=== PATIENT | male | born 1975 | race Caucasian/White ===

== ENCOUNTER 2016-09-09 12:40 | Inpatient (IN) | payer OTHER ==
[2016-09-09] MEDS ORDERED: SODIUM CHLORIDE 0.9% 1,000 ML IV ONE (12:44)
[2016-09-09] MEDS ORDERED: IPRATROPIUM-ALBUTEROL 3 ML NEB INHALATION STA (12:45)
--- NOTE | 2016-09-09 12:50 | ED ---
Altered Mental Status HPI - General Stated Complaint: unresponsive Time Seen by Provider: 09/09/16 12:40 Source: EMS, RN notes reviewed, old records reviewed Mode of arrival: EMS - History of Present Illness Initial Comments: This is a 40-year-old male who apparently did not go to work today and was found after several hours by his boss sitting in a recliner unresponsive. EMS was called the patient had vomited. The patient was given Narcan with some improvement he was found have pinpoint pupils initially noted. He was very lethargic and unable or not able to cooperate with questioning. No paraphernalia such as heroin needles or narcotics were found at the scene. Looking through old charts the patient does have a history of being here for alcohol abuse. No reports of any fevers chills sweats the patient is a poor historian however. MD Complaint: altered mental status, decreased responsiveness - Related Data Home Medications Medication Instructions Recorded Confirmed Escitalopram Oxalate [Lexapro] 10 mg PO DAILY 09/09/16 09/09/16 FLUoxetine HCL [PROzac] 20 mg PO DAILY 09/09/16 09/09/16 Allergies Allergy/AdvReac Type Severity Reaction Status Date / Time seasonal Allergy Rash/Hives Uncoded 09/09/16 15:27 Review of Systems ROS Statement: Those systems with pertinent positive or pertinent negative responses have been documented in the HPI. ROS Other: All systems not noted in ROS Statement are negative. Limitations: ROS unobtainable due to patients medical condition Past Medical History Past Medical History: No Reported History Additional Past Medical History / Comment(s): alcoholic History of Any Multi-Drug Resistant Organisms: None Reported Additional Past Surgical History / Comment(s): ent, RHINOPLASTY Past Psychological History: Depression Smoking Status: Current every day smoker Past Alcohol Use History: Daily Past Drug Use History: None Reported General Exam - General Exam Comments Initial Comments: Is a well-developed well-nourished lethargic male General appearance: lethargic Eye exam: Present: normal appearance, PERRL, EOMI. Absent: scleral icterus, conjunctival injection, periorbital swelling ENT exam: Present: other (Emesis residue is present) Neck exam: Present: normal inspection. Absent: tenderness, meningismus, lymphadenopathy Respiratory exam: Present: decreased breath sounds, other (Lower lobe rhonchi) Cardiovascular Exam: Present: regular rate, normal rhythm, normal heart sounds. Absent: systolic murmur, diastolic murmur, rubs, gallop, clicks GI/Abdominal exam: Present: soft, normal bowel sounds. Absent: distended, tenderness, guarding, rebound, rigid Extremities exam: Present: normal inspection, full ROM, normal capillary refill. Absent: tenderness, pedal edema, joint swelling, calf tenderness Back exam: Present: normal inspection Neurological exam: Present: altered, CN II-XII intact. Absent: motor sensory deficit Psychiatric exam: Present: agitated Skin exam: Present: warm, dry, intact, normal color. Absent: rash Course Vital Signs 09/09/16 09/09/16 09/09/16 12:45 13:00 13:10 Temperature 97.8 F Pulse Rate 110 H 110 H 114 H Respiratory 18 Rate Blood Pressure O2 Sat by Pulse 100 Oximetry 09/09/16 09/09/16 09/09/16 13:12 13:30 14:24 Temperature 97.2 F L Pulse Rate 80 118 H Respiratory 18 18 Rate Blood Pressure 129/69 106/58 122/68 O2 Sat by Pulse 97 96 Oximetry 09/09/16 09/09/16 09/09/16 15:19 15:58 16:03 Temperature Pulse Rate 114 H 117 H 113 H Respiratory 18 16 16 Rate Blood Pressure 146/87 118/61 116/66 O2 Sat by Pulse 98 100 100 Oximetry - Reevaluation(s) Reevaluation #1: 09/09/16 14:10 Agent is somewhat more awake and alert and he was earlier sought answering questions well. Show sinus tachycardia rate 113 some prominent T waves noted. The patient's potassium was noted to be markedly elevated nonhemolyzed specimen the patient be treated for this a repeat blood draw also has been ordered Reevaluation #2: 09/09/16 15:40 The patient remains agitated chewable gas of pH is 7.15 pCO2 of 54. Patient will require intubation as he is not maintaining his airway. Reevaluation #3: 09/09/16 16:21 I did review the x-ray tracheal tube was approximately 41 mm above the leila he will be position by 1.5 cm Procedures - Intubation Time Out Performed: Yes Sedative: Versed Paralytic: Rocuronium Laryngoscope: Fregoso Size: 3 ET Tube Size: 8 ET Tube Uncuffed: No (Cuffed tube) Tube Secured Depth (cm): 23 Tube Secured Location: lips Tube Placement Confirmation: visualized tube passing through cords, equal breath sounds bilaterally, confirmation by capnometry Patient Tolerated Procedure: well Intubation Complications: none Medical Decision Making - Lab Data Result diagrams: 09/09/16 13:00 09/09/16 13:50 Lab Results 09/09/16 09/09/16 09/09/16 Range/Units 13:00 13:00 13:00 WBC 17.3 H (3.8-10.6) k/uL RBC 5.11 (4.30-5.90) m/uL Hgb 15.9 (13.0-17.5) gm/dL Hct 51.7 (39.0-53.0) % MCV 101.2 H (80.0-100.0) fL MCH 31.0 (25.0-35.0) pg MCHC 30.7 L (31.0-37.0) g/dL RDW 13.0 (11.5-15.5) % Plt Count 254 (150-450) k/uL Neutrophils % 85 % Lymphocytes % 6 % Monocytes % 7 % Eosinophils % 0 % Basophils % 0 % Neutrophils # 14.6 H (1.3-7.7) k/uL Lymphocytes # 1.1 (1.0-4.8) k/uL Monocytes # 1.3 H (0-1.0) k/uL Eosinophils # 0.0 (0-0.7) k/uL Basophils # 0.1 (0-0.2) k/uL Macrocytosis Slight PT (9.0-12.0) sec INR (<1.1) APTT (22.0-30.0) sec Sample Site ABG pH (7.35-7.45) ABG pCO2 (35-45) mmHg ABG pO2 (83-108) mmHg ABG HCO3 (21-25) mmol/L ABG Total CO2 (19-24) mmol/L ABG O2 Saturation (94-97) % ABG Base Excess mmol/L FiO2 % Sodium (137-145) mmol/L Potassium (3.5-5.1) mmol/L Chloride (98-107) mmol/L Carbon Dioxide (22-30) mmol/L Anion Gap mmol/L BUN (9-20) mg/dL Creatinine (0.66-1.25) mg/dL Est GFR (MDRD) Af Amer (>60 ml/min/1.73 sqM) Est GFR (MDRD) Non-Af (>60 ml/min/1.73 sqM) Glucose (74-99) mg/dL POC Glucose (mg/dL) (75-99) mg/dL POC Glu Property Management Intern ID Osmolality (280-301) mosm/kg Plasma Lactic Acid Valentino 7.1 H* (0.7-2.0) mmol/L Calcium (8.4-10.2) mg/dL Magnesium (1.6-2.3) mg/dL Total Bilirubin (0.2-1.3) mg/dL AST (17-59) U/L ALT (21-72) U/L Alkaline Phosphatase (38-126) U/L Ammonia 22 (<30) umol/L Total Creatine Kinase 95864 H (55-170) U/L CK-MB (CK-2) 95.2 H* (0.0-2.4) ng/mL CK-MB (CK-2) Rel Index Troponin I 0.960 H* (0.000-0.034) ng/mL Total Protein (6.3-8.2) g/dL Albumin (3.5-5.0) g/dL Amylase (30-110) U/L Lipase (23-300) U/L Urine Color Urine Appearance (Clear) Urine pH (5.0-8.0) Ur Specific [place] (1.001-1.035) Urine Protein (Negative) Urine Glucose (UA) (Negative) Urine Ketones (Negative) Urine Blood (Negative) Urine Nitrate (Negative) Urine Bilirubin (Negative) Urine Urobilinogen (<2.0) mg/dL Ur Leukocyte Esterase (Negative) Urine Opiates Screen (NotDetected) Ur Oxycodone Screen (NotDetected) Urine Methadone Screen (NotDetected) Ur Propoxyphene Screen (NotDetected) Ur Barbiturates Screen (NotDetected) U Tricyclic Antidepress (NotDetected) Ur Phencyclidine Scrn (NotDetected) Ur Amphetamines Screen (NotDetected) U Methamphetamines Scrn (NotDetected) U Benzodiazepines Scrn (NotDetected) Urine Cocaine Screen (NotDetected) U Marijuana (THC) Screen (NotDetected) Serum Alcohol mg/dL 09/09/16 09/09/16 09/09/16 Range/Units 13:00 13:00 13:08 WBC (3.8-10.6) k/uL RBC (4.30-5.90) m/uL Hgb (13.0-17.5) gm/dL Hct (39.0-53.0) % MCV (80.0-100.0) fL MCH (25.0-35.0) pg MCHC (31.0-37.0) g/dL RDW (11.5-15.5) % Plt Count (150-450) k/uL Neutrophils % % Lymphocytes % % Monocytes % % Eosinophils % % Basophils % % Neutrophils # (1.3-7.7) k/uL Lymphocytes # (1.0-4.8) k/uL Monocytes # (0-1.0) k/uL Eosinophils # (0-0.7) k/uL Basophils # (0-0.2) k/uL Macrocytosis PT 10.2 (9.0-12.0) sec INR 1.0 (<1.1) APTT 21.0 L (22.0-30.0) sec Sample Site ABG pH (7.35-7.45) ABG pCO2 (35-45) mmHg ABG pO2 (83-108) mmHg ABG HCO3 (21-25) mmol/L ABG Total CO2 (19-24) mmol/L ABG O2 Saturation (94-97) % ABG Base Excess mmol/L FiO2 % Sodium 148 H (137-145) mmol/L Potassium 8.2 H* (3.5-5.1) mmol/L Chloride 105 (98-107) mmol/L Carbon Dioxide 18 L (22-30) mmol/L Anion Gap 25 mmol/L BUN 17 (9-20) mg/dL Creatinine 3.52 H (0.66-1.25) mg/dL Est GFR (MDRD) Af Amer 23 (>60 ml/min/1.73 sqM) Est GFR (MDRD) Non-Af 19 (>60 ml/min/1.73 sqM) Glucose 129 H (74-99) mg/dL POC Glucose (mg/dL) 116 H (75-99) mg/dL POC Glu Property Management Intern Jessie Zaidi Osmolality 343 H* (280-301) mosm/kg Plasma Lactic Acid Valentino (0.7-2.0) mmol/L Calcium 9.5 (8.4-10.2) mg/dL Magnesium 2.4 H (1.6-2.3) mg/dL Total Bilirubin 0.5 (0.2-1.3) mg/dL AST 4083 H (17-59) U/L ALT 2961 H (21-72) U/L Alkaline Phosphatase 85 (38-126) U/L Ammonia (<30) umol/L Total Creatine Kinase (55-170) U/L CK-MB (CK-2) (0.0-2.4) ng/mL CK-MB (CK-2) Rel Index Troponin I (0.000-0.034) ng/mL Total Protein 8.5 H (6.3-8.2) g/dL Albumin 5.4 H (3.5-5.0) g/dL Amylase 271 H (30-110) U/L Lipase 844 H (23-300) U/L Urine Color Urine Appearance (Clear) Urine pH (5.0-8.0) Ur Specific [place] (1.001-1.035) Urine Protein (Negative) Urine Glucose (UA) (Negative) Urine Ketones (Negative) Urine Blood (Negative) Urine Nitrate (Negative) Urine Bilirubin (Negative) Urine Urobilinogen (<2.0) mg/dL Ur Leukocyte Esterase (Negative) Urine Opiates Screen (NotDetected) Ur Oxycodone Screen (NotDetected) Urine Methadone Screen (NotDetected) Ur Propoxyphene Screen (NotDetected) Ur Barbiturates Screen (NotDetected) U Tricyclic Antidepress (NotDetected) Ur Phencyclidine Scrn (NotDetected) Ur Amphetamines Screen (NotDetected) U Methamphetamines Scrn (NotDetected) U Benzodiazepines Scrn (NotDetected) Urine Cocaine Screen (NotDetected) U Marijuana (THC) Screen (NotDetected) Serum Alcohol 83 mg/dL 09/09/16 09/09/16 09/09/16 Range/Units 13:50 14:41 15:11 WBC (3.8-10.6) k/uL RBC (4.30-5.90) m/uL Hgb (13.0-17.5) gm/dL Hct (39.0-53.0) % MCV (80.0-100.0) fL MCH (25.0-35.0) pg MCHC (31.0-37.0) g/dL RDW (11.5-15.5) % Plt Count (150-450) k/uL Neutrophils % % Lymphocytes % % Monocytes % % Eosinophils % % Basophils % % Neutrophils # (1.3-7.7) k/uL Lymphocytes # (1.0-4.8) k/uL Monocytes # (0-1.0) k/uL Eosinophils # (0-0.7) k/uL Basophils # (0-0.2) k/uL Macrocytosis PT (9.0-12.0) sec INR (<1.1) APTT (22.0-30.0) sec Sample Site RT RADIAL ABG pH 7.15 L* (7.35-7.45) ABG pCO2 54 H (35-45) mmHg ABG pO2 107 (83-108) mmHg ABG HCO3 18 L (21-25) mmol/L ABG Total CO2 20 (19-24) mmol/L ABG O2 Saturation 96.0 (94-97) % ABG Base Excess -9.2 mmol/L FiO2 50 % Sodium (137-145) mmol/L Potassium 8.7 H* (3.5-5.1) mmol/L Chloride (98-107) mmol/L Carbon Dioxide (22-30) mmol/L Anion Gap mmol/L BUN (9-20) mg/dL Creatinine (0.66-1.25) mg/dL Est GFR (MDRD) Af Amer (>60 ml/min/1.73 sqM) Est GFR (MDRD) Non-Af (>60 ml/min/1.73 sqM) Glucose (74-99) mg/dL POC Glucose (mg/dL) (75-99) mg/dL POC Glu Property Management Intern ID Osmolality (280-301) mosm/kg Plasma Lactic Acid Valentino (0.7-2.0) mmol/L Calcium (8.4-10.2) mg/dL Magnesium (1.6-2.3) mg/dL Total Bilirubin (0.2-1.3) mg/dL AST (17-59) U/L ALT (21-72) U/L Alkaline Phosphatase (38-126) U/L Ammonia (<30) umol/L Total Creatine Kinase (55-170) U/L CK-MB (CK-2) (0.0-2.4) ng/mL CK-MB (CK-2) Rel Index Troponin I (0.000-0.034) ng/mL Total Protein (6.3-8.2) g/dL Albumin (3.5-5.0) g/dL Amylase (30-110) U/L Lipase (23-300) U/L Urine Color Light Yellow Urine Appearance Clear (Clear) Urine pH 5.0 (5.0-8.0) Ur Specific [place] 1.003 (1.001-1.035) Urine Protein Negative (Negative) Urine Glucose (UA) Negative (Negative) Urine Ketones Negative (Negative) Urine Blood Negative (Negative) Urine Nitrate Negative (Negative) Urine Bilirubin Negative (Negative) Urine Urobilinogen <2.0 (<2.0) mg/dL Ur Leukocyte Esterase Negative (Negative) Urine Opiates Screen Detected H (NotDetected) Ur Oxycodone Screen Not Detected (NotDetected) Urine Methadone Screen Not Detected (NotDetected) Ur Propoxyphene Screen Not Detected (NotDetected) Ur Barbiturates Screen Not Detected (NotDetected) U Tricyclic Antidepress Not Detected (NotDetected) Ur Phencyclidine Scrn Not Detected (NotDetected) Ur Amphetamines Screen Not Detected (NotDetected) U Methamphetamines Scrn Not Detected (NotDetected) U Benzodiazepines Scrn Not Detected (NotDetected) Urine Cocaine Screen Not Detected (NotDetected) U Marijuana (THC) Screen Not Detected (NotDetected) Serum Alcohol mg/dL - EKG Data -: EKG Interpreted by Tn EKG shows normal: sinus rhythm Rate: tachycardia (Sinus tachycardia rate of 113. Interval 156 QRS duration 94 QT/QTC of 306/419 evidence of incomplete right bundle-branch block nonspecific ST configuration some prominent T waves noted) - Radiology Data Radiology results: report reviewed (CAT scan of brain was negative for acute findings x-ray did show evidence of right lower lobe infiltrate), image reviewed Critical Care Time Critical Care Time: Yes Critical Care Time: 59 minutes of critical care time which includes initial monitoring of the EMS run including discussed with paramedics upon arrival. Evaluation patient with history physical evaluation the laboratory and charting. Initial orders of labs x-rays evaluation same reevaluation patient multiple occasions. Evaluation of the x-rays. This is not include the intubation time. I did discuss the case with Dr. Sanabria and with Disposition Clinical Impression: Acute respiratory failure, Encephalopathy acute, Acute renal failure (ARF), Rhabdomyolysis, Acute hyperkalemia, Alcoholic hepatitis, Alcoholic intoxication , Sepsis, Aspiration pneumonitis Disposition: ADMITTED IP TO THIS HOSP Condition: Critical
[2016-09-09] MEDS ORDERED: SODIUM CHLORIDE 0.9% 1,000 ML with MVI, ADULT NO.4 WITH VIT K 10 ML, THIAMINE 100 MG, F... IV ONE ×4 (12:51)
[2016-09-09 13:10] LABS: Glucose,Whole Blood 116 mg/dL (75-99)
[2016-09-09 13:16] LABS: Basophils # (A) 0.1 k/uL (0-0.2); Basophils % (A) 0 %; CH 32.4; CHCM 32.3; Eosinophils % (A) 0 %; HCT 51.7 % (39.0-53.0); HDW 2.58; HGB 15.9 gm/dL (13.0-17.5); Luc # (Auto) 0.18; Luc % (Auto) 1; Lymphocytes # (A) 1.1 k/uL (1.0-4.8); Lymphocytes % (A) 6 %; MCHC 30.7 g/dL (31.0-37.0); MCV 101.2 fL (80.0-100.0); Macrocytosis Slight; Mean Platelet Volume 7.7; Monocytes # (A) 1.3 k/uL (0-1.0); Monocytes % (A) 7 %; Neutrophils # (A) 14.6 k/uL (1.3-7.7); Neutrophils % (A) 85 %; RBC 5.11 m/uL (4.30-5.90); WBC 17.3 k/uL (3.8-10.6); WBC (Perox) 17.26
[2016-09-09] MEDS ORDERED: LORazepam 2 MG/ML SYRINGE IV STA (13:18)
[2016-09-09 13:30] LABS: Calcium 9.5 mg/dL (8.4-10.2); Magnesium 2.4 mg/dL (1.6-2.3); Total Bilirubin 0.5 mg/dL (0.2-1.3); Total Protein 8.5 g/dL (6.3-8.2)
[2016-09-09 13:32] LABS: Prothrombin Time 10.2 sec (9.0-12.0)
[2016-09-09 13:37] LABS: Potassium 8.2 mmol/L (3.5-5.1)
[2016-09-09] MEDS ORDERED: SODIUM CHLORIDE 0.9% 2,000 ML IV ONE ×2 (13:37→14:22)
--- NOTE | 2016-09-09 13:56 | XR ---
EXAMINATION TYPE: XR chest 1V portable DATE OF EXAM: 09/09/2016 1:51 PM COMPARISON: Chest x-ray January 20, 2014 HISTORY: Altered mental status and weakness. TECHNIQUE: Single frontal view of the chest is obtained. FINDINGS: There is new patchy right basilar atelectasis and/or infiltrate. Left lung is clear. No pl eural effusion or pneumothorax seen bilaterally The cardiac silhouette size is within normal limits. The osseous structures are intact. IMPRESSION: New patchy right basilar atelectasis and/or infiltrate.
[2016-09-09] MEDS ORDERED: INSULIN REGULAR 100 UNIT/ML VIAL IV ONE (13:58)
[2016-09-09] MEDS ORDERED: DEXTROSE 50%-WATER 50 ML SYRINGE IVP STA (13:58)
[2016-09-09] MEDS ORDERED: SODIUM BICARB 8.4% 50 ML SYR (1 MEQ/ML) IV ONE ×2 (13:59→21:10)
--- NOTE | 2016-09-09 14:00 | CT ---
EXAMINATION TYPE: CT brain wo con DATE OF EXAM: 09/09/2016 1:51 PM COMPARISON: CT brain February 26, 2016 HISTORY: Patient unable to give history. Unresponsive. CT DLP: 835.8 mGycm Automated exposure control for dose reduction was used. FINDINGS: There is no acute intracranial hemorrhage, mass effect, or midline shift identified. The ventricles and sulci are within normal limits in size. Russell-white matter differentiation is maintained. The montse bes are intact and the visualized sinuses are clear. IMPRESSION: No acute intracranial hemorrhage or midline shift is seen. No significant change from prior.
[2016-09-09 14:04] LABS: Creatine Kinase MB 95.2 ng/mL (0.0-2.4); Troponin I 0.96 ng/mL (0.000-0.034)
[2016-09-09] MEDS ORDERED: PIPERACILLIN-TAZOBACTAM 3.375 GM in DEXTROSE/WATER 1 50ML.BAG IVPB STA (14:13)
[2016-09-09 14:51] LABS: ABG HCO3 18 mmol/L (21-25); ABG PCO2 54 mmHg (35-45); ABG PH 7.15 (7.35-7.45); ABG PO2 107 mmHg (83-108)
[2016-09-09 14:52] LABS: ABG Base Excess -9.2 mmol/L; ABG TCO2 20 mmol/L (19-24)
[2016-09-09] MEDS ORDERED: MIDAZOLAM (PF) 1 MG/ML 5 ML VIAL IV STA (14:58)
[2016-09-09] MEDS ORDERED: ROCURONIUM BROMIDE 10 MG/ML 10 ML VIAL IV STA (14:59)
[2016-09-09] MEDS ORDERED: PROPOFOL 500 MG in EMPTY BAG 1 BAG IV ONE (15:18)
[2016-09-09 15:26] LABS: Appearance,Urine Clear (Clear); Bilirubin,Urine Negative (Negative); Glucose,Urine (UA) Negative (Negative); Ketones,Urine Negative (Negative); Leukocyte Esterase,Urine Negative (Negative); Nitrite,Urine Negative (Negative); Protein,Urine Negative (Negative); Specific Gravity,Urine 1.003 (1.001-1.035); UA Billing (MACRO vs. MICRO) CHEM; Urobilinogen,Urine <2.0 mg/dL (<2.0)
--- NOTE | 2016-09-09 15:56 | XR ---
EXAMINATION TYPE: XR chest 1V portable DATE OF EXAM: 09/09/2016 3:49 PM COMPARISON: Chest x-ray from earlier today HISTORY: Found unresponsive had to be intubated TECHNIQUE: Single AP portable frontal supine view of the chest is obtained. FINDINGS: There is new endotracheal tube with tip at clavicular margin, approximately 4 to 5 cm above the leila. There is new orogastric tube projecting below diaphragm. There is patchy right basilar atelectasis and/or infiltrate redemonstrated. There is no new focal air space opacity, pleural effusion, or pneumothorax seen. The cardiac silhouette size is within normal limits. The osseous structures are intact. IMPRESSION: 1. New ET and OGT are satisfactory in position. 2. Persistent patchy right basilar atelectasis and/or infiltrate. No new infiltrate is seen.
[2016-09-09] MEDS: PROPOFOL 500 MG in EMPTY BAG 1 BAG IV SCH ×3 (16:05→21:03)
[2016-09-09] MEDS ORDERED: NALOXONE 0.4 MG/ML 1 ML VIAL IV PRN (16:28)
[2016-09-09] MEDS ORDERED: SODIUM POLYSTYRENE SULFONATE 15 GM/60 ML BOTTLE PO STA (16:31)
[2016-09-09] MEDS ORDERED: CALCIUM CHLORIDE 100 MG/ML 10 ML SYRINGE IVP STA (16:32)
[2016-09-09] MEDS ORDERED: ALBUTEROL NEBULIZED 2.5 MG/3 ML INHALATION SCH (17:00)
[2016-09-09] MEDS: LORazepam 2 MG/ML SYRINGE IV PRN ×2 (17:50→18:19)
[2016-09-09] MEDS: SODIUM CHLORIDE 0.9% 1,000 ML IV SCH (18:00)
[2016-09-09] MEDS ORDERED: levETIRAcetam IV 1,000 MG in SALINE 1 100ML.BAG IVPB STA (18:23)
[2016-09-09] MEDS ORDERED: ACETAMINOPHEN IV (For NPO) 1,000 MG in EMPTY BAG 1 BAG IVPB PRN (18:50)
--- NOTE | 2016-09-09 19:00 | P.CNNES ---
History of Present Illness Consult date: 09/09/16 Reason for Consult: Patient unresponsive on the ventilator with frequent muscle twitching. History of Present Illness: This patient is a 40-year-old right-handed white male who apparently was found unresponsive at his home. The patient had not appeared to work at his usual scheduled time and his supervisor pig machine came to his home. Apparently he found the patient unresponsive sitting in a recliner chair. EMS was called to the scene and when they arrived they found him to have very shallow respirations. CPR was started and the patient was intubated and brought to the emergency room. Patient was seen in the emergency room by Dr. Chacon. Apparently the patient had vomited in route to the ER. In the ER he was found to be very lethargic and hard to arouse. He had pinpoint pupils and was very lethargic. Review of his old charts revealed he had a history of alcohol abuse in the past. Laboratory testing was done and his alcohol level was elevated. His serum alcohol level was 83. His urine drug screen came back positive for opiates. Patient underwent blood gas evaluation which revealed the patient to have severe respiratory distress. The patient was intubated in the emergency room and transferred to the intensive care unit. He apparently was lethargic and arousable in the ER but since coming into the ICU initially he was not very responsive. He also had evidence of frequent myoclonic jerks involving his entire body. He was started on levetiracetam for this condition. The patient now is more awake. He is following some simple commands. He did go for a computed tomography scan of the brain which failed to reveal any evidence of acute stroke or hemorrhage. There was no evidence of vasogenic edema. Chest x- ray did reveal evidence of possible aspiration pneumonia. He was placed on Zosyn for IV antibiotic coverage. He is now transferred to the intensive care unit where he is being evaluated for a full neurological assessment. As noted he is following some simple commands. He is moving all 4 extremities. Apparently he did have more frequent myoclonic jerks earlier since coming into the ICU but these are much reduced at this time. We will place the patient on Leva Leila Kaminski for a short period of time and monitor his response. He continues on a Diprivan drip at this time. He is slightly septic with elevated temperature in the ICU. Blood cultures are pending. This patient likely has evidence of a severe anoxic encephalopathy due to respiratory failure. Workup is in progress. We will continue close neurological follow-up with this patient in the intensive care unit. Review of Systems ROS unobtainable: due to endotracheal tube Constitutional: Denies chills, Denies fever Eyes: denies blurred vision, denies pain Ears, nose, mouth and throat: Denies headache, Denies sore throat Cardiovascular: Denies chest pain, Denies shortness of breath Respiratory: Denies cough Gastrointestinal: Denies abdominal pain, Denies diarrhea, Denies nausea, Denies vomiting Musculoskeletal: Denies myalgias Integumentary: Denies pruritus, Denies rash Neurological: Reports confusion, Reports tremors, Denies numbness, Denies weakness Psychiatric: Denies anxiety, Denies depression Endocrine: Denies fatigue, Denies weight change Past Medical History Past Medical History: No Reported History Additional Past Medical History / Comment(s): alcoholic History of Any Multi-Drug Resistant Organisms: None Reported Additional Past Surgical History / Comment(s): ent, RHINOPLASTY Past Psychological History: Depression Smoking Status: Current every day smoker Past Alcohol Use History: Daily Past Drug Use History: None Reported Medications and Allergies Home Medications Medication Instructions Recorded Confirmed Type Escitalopram Oxalate [Lexapro] 10 mg PO DAILY 09/09/16 09/09/16 History FLUoxetine HCL [PROzac] 20 mg PO DAILY 09/09/16 09/09/16 History Allergies Allergy/AdvReac Type Severity Reaction Status Date / Time seasonal Allergy Rash/Hives Uncoded 09/09/16 15:27 Physical Examination - Vital Signs Vital Signs: Vital Signs Temp Pulse Resp BP Pulse Ox 09/09/16 17:45 100.9 F H 106 H 13 175/99 100 09/09/16 16:41 98.5 F 110 H 16 121/62 99 Intake and Output 09/09/16 09/09/16 09/09/16 06:59 14:59 22:59 Intake Total 362.5 Output Total 5 Balance 357.5 Intake: IV 362.5 Piperacillin-Tazobactam 3 12.5 .375 gm In Dextrose/Water 1 50ml.bag @ 12.5 mls/hr IVPB ONCE STA Rx#: [id number] Sodium Chloride 0.9% 1, 100 000 ml @ 100 mls/hr IV . Q10H7M ONE with Mvi, Adult No.4 with Vit K 10 ml with Thiamine 100 mg with Folic Acid 1 mg Rx#: [id number] Sodium Chloride 0.9% 1, 250 000 ml @ 250 mls/hr IV . Q4H [facility] Rx#:[id number] Output: Urine 5 - Constitutional General appearance: average body habitus - EENT EENT: mucous membranes moist - Respiratory Respiratory: lungs clear - Cardiovascular Cardiovascular: regular rate, normal S1, normal S2 Extremities: no peripheral edema bilaterally - Gastrointestinal Gastrointestinal: normoactive bowel sounds - Integumentary Integumentary: normal - Neurologic Cranial nerve examination: PERRL, EOMI, VFF, V1/V2/V3 grossly intact, face symmetric, tongue midline, intact gag reflex, intact corneal reflex Speech examination: intact Sensorimotor examination: intact Detailed motor examination: grossly full strength in all extremities Reflexes: 1+: ankle, bicep, knee, tricep - Musculoskeletal Musculoskeletal: no pain - Psychiatric Psychiatric: agitated Results - Laboratory Findings CBC and BMP: 09/09/16 13:00 09/09/16 13:50 Assessment and Plan (1) Anoxic encephalopathy Status: Acute Code(s): G93.1 - ANOXIC BRAIN DAMAGE, NOT ELSEWHERE CLASSIFIED (2) Acute hyperkalemia Status: Acute Code(s): E87.5 - HYPERKALEMIA (3) Acute respiratory failure Status: Acute Code(s): J96.00 - ACUTE RESPIRATORY FAILURE, UNSP W HYPOXIA OR HYPERCAPNIA (4) Alcoholic hepatitis Status: Acute Code(s): K70.10 - ALCOHOLIC HEPATITIS WITHOUT ASCITES (5) Sepsis Status: Acute Code(s): A41.9 - SEPSIS, UNSPECIFIED ORGANISM Plan: This patient is a 40-year-old male who was found unresponsive at his home by his supervisor pig machine. The patient was late for work for over 3 hours and his supervisor pig machine and went to check on him. He found him sitting in a chair unresponsive. It is unclear how long he may have been in this position but it is estimated to be over 2 hours. Patient was having shallow breathing. When EMS arrived they had to intubate him. He was transferred to the emergency room where he was further evaluated. He underwent a computed tomography scan of the brain results which are noted above. CAT scan was negative for any acute changes. He was intubated due to respiratory failure and aspiration pneumonia and transferred to the intensive care unit. Initially in the ICU he had some muscle twitching. This is felt to be secondary to severe anoxic encephalopathy. He has been started on levetiracetam and we will monitor his response closely. This patient has a severe anoxic encephalopathy secondary to respiratory failure. Etiology of his respiratory failure is undetermined at this time. He does have evidence of aspiration pneumonia as well on chest x- ray. We reviewed the computed tomography scan of the brain which is negative for any acute changes. We will obtain routine EEG for further assessment. He shouldn't is be maintained on levetiracetam at this time. We will check a level and adjust his dose as needed. This patient's overall prognosis at this time remains very guarded. We will continue close neurological follow-up of this patient in the intensive care unit. Time with Patient: Greater than 30
[2016-09-09 19:02] LABS: Anion Gap 12 mmol/L; Blood Urea Nitrogen 21 mg/dL (9-20); Calcium 7.5 mg/dL (8.4-10.2); Carbon Dioxide 19 mmol/L (22-30); Chloride 115 mmol/L (98-107); Glucose 142 mg/dL (74-99); Non-African American GFR(MDRD) 21 (>60 ml/min/1.73 sqM); Sodium 146 mmol/L (137-145)
[2016-09-09 19:12] LABS: Potassium 6.6 mmol/L (3.5-5.1)
[2016-09-09 19:17] LABS: ABG PH 7.18 (7.35-7.45)
[2016-09-09 19:18] LABS: ABG HCO3 18 mmol/L (21-25); ABG PCO2 51 mmHg (35-45); ABG PO2 363 mmHg (83-108); ABG TCO2 20 mmol/L (19-24)
[2016-09-09 19:33] LABS: Hepatitis B Surface Ag Index 0.06
[2016-09-09 19:39] LABS: Hepatitis B Core IgM Index 0.04
[2016-09-09] MEDS ORDERED: FOMEPIZOLE IV ONE (19:45)
[2016-09-09] MEDS ORDERED: SODIUM CHLORIDE 0.9% IV ONE (19:45)
[2016-09-09] MEDS ORDERED: FOMEPIZOLE 1 GM/ML 1.5 ML VIAL IV ONE (19:45)
[2016-09-09 19:50] LABS: Hepatitis C Virus IgG Index 0.01
[2016-09-09 19:57] LABS: Hepatitis C Virus IgG Ab Negative (Negative)
[2016-09-09] MEDS: PROPOFOL 50 ML IV ONE ×2 (20:00→21:13)
[2016-09-09] MEDS ORDERED: NOREPINEPHRINE 4 MG-0.9% NS PMX 250 ML IV ONE (20:10)
[2016-09-09] MEDS: ALBUTEROL NEBULIZED 2.5 MG/3 ML INHALATION SCH ×2 (20:13→23:22)
[2016-09-09] MEDS ORDERED: HEPARIN SODIUM,PORCINE 5,000 UNIT/ML 1 ML VIAL ONE (20:20)
[2016-09-09 20:28] LABS: ABG Base Excess -11.2 mmol/L; ABG HCO3 15 mmol/L (21-25); ABG PCO2 34 mmHg (35-45); ABG PH 7.26 (7.35-7.45); ABG PO2 172 mmHg (83-108); ABG TCO2 16 mmol/L (19-24)
[2016-09-09] MEDS ORDERED: DEXTROSE 5% IN WATER 1,000 ML with SODIUM BICARB (1 MEQ/ML) 150 ML IV SCH (21:00)
[2016-09-09] MEDS: levETIRAcetam IV 500 MG in SODIUM CHLORIDE 0.9% 100 ML IVPB SCH (21:08)
[2016-09-09] MEDS: CHLORHEXIDINE GLUCONATE 15 ML CUP MUCOUS MEM SCH (21:10)
[2016-09-09] MEDS ORDERED: SODIUM CHLORIDE 0.9% 99 ML with VASOPRESSIN 20 UNIT IV SCH ×2 (21:15)
--- NOTE | 2016-09-09 21:51 | P.PCN ---
Date of Procedure: 09/09/16 Preoperative Diagnosis: acute kidney injury with hyperkalemia poor IV access shock suspected drug overdose Postoperative Diagnosis: same Procedure(s) Performed: right femoral non-tunneled dialysis catheter left femoral triple lumen catheter left radial arterial line Anesthesia: local Surgeon: Leni Fonseca Pathology: none sent Condition: critical Disposition: no change Indications for Procedure: see pre-op diagnosis Description of Procedure: After sterile prep and drape of both groins, using ultrasound guidance, a 21- gauge needle was placed in the left common femoral vein. An 018 wire was threaded proximally followed by a sheath and a core. The wire and core were removed, and an 035" guidewire was inserted into the left iliac vein. A a triple lumen catheter was threaded over the wire. All ports aspirated and flushed without difficulty. They were capped with a solution of saline. The catheter was secured with a 3-0 silk suture. Sterile dressing was placed. Using ultrasound guidance, a 21-gauge needle was placed into the right common femoral vein. An 018 wire was threaded proximally followed by a sheath and a core. The wire and core were removed and an 035" J-wire was threaded into the iliac vein. The tract into the right femoral artery was sequentially dilated. A non-tunneled hemodialysis catheter was then threaded into the right common femoral vein proximally. Both ports aspirated and flushed without difficulty. They were capped with a solution of 1000 units of heparin per cc. The catheter was secured with a 3-0 silk suture. The left wrist was prepped and draped in the usual sterile fashion. A Arrow radial art line kit was then used to access the left radial artery and an 018" wire was threaded proximally. The catheter was then threaded over the wire with arterial blood seen coming from the end of the catheter. The catheter was secured with a 3-0 silk suture. Sterile dressing was placed. An arterial waveform was noted. Plan - Discharge Summary Discharge Medication List Escitalopram Oxalate [Lexapro] 10 mg PO DAILY 09/09/16 [History] FLUoxetine HCL [PROzac] 20 mg PO DAILY 09/09/16 [History] Follow up Appointment(s)/Referral(s): Alexandro Sanabria MD [Primary Care Provider] - 1-2 days
[2016-09-09] MEDS ORDERED: PHENYLEPHRINE 40 MG in SODIUM CHLORIDE 0.9% 250 ML IV SCH (22:15)
[2016-09-09] MEDS: NOREPINEPHRINE 16 MG in SODIUM CHLORIDE 0.9% 250 ML IV SCH (22:42)
[2016-09-10] MEDS ORDERED: PIPERACILLIN-TAZOBACTAM 3.375 GM in DEXTROSE/WATER 1 50ML.BAG IVPB SCH
[2016-09-10] MEDS ORDERED: HEPARIN SODIUM 1,000 UNIT/ML VIAL ONE (00:30)
[2016-09-10] MEDS: PROPOFOL 500 MG in EMPTY BAG 1 BAG IV SCH ×11 (01:33→22:37)
[2016-09-10] MEDS ORDERED: HEPARIN SODIUM,PORCINE 5,000 UNIT/ML 1 ML VIAL IV STA (01:34)
[2016-09-10] MEDS: LORazepam 2 MG/ML SYRINGE IV PRN ×6 (01:34→23:08)
[2016-09-10] MEDS ORDERED: HEPARIN SODIUM,PORCINE 5,000 UNIT/ML 1 ML VIAL IV PRN (01:39)
[2016-09-10] MEDS ORDERED: HEPARIN SODIUM,PORCINE 5,000 UNIT/ML 1 ML VIAL IV ONE (01:45)
[2016-09-10] MEDS: PIPERACILLIN-TAZOBACTAM 3.375 GM in DEXTROSE/WATER 1 50ML.BAG IVPB SCH ×2 (01:57→13:05)
[2016-09-10] MEDS: HEPARIN SODIUM,PORCINE 5,000 UNIT/ML 1 ML VIAL SQ SCH ×3 (01:59→17:14)
--- NOTE | 2016-09-10 02:06 | XR ---
EXAMINATION TYPE: XR abdomen 1V DATE OF EXAM: 09/10/2016 1:56 AM CLINICAL HISTORY: Dialysis catheter placement TECHNIQUE: Single supine KUB image of the abdomen is obtained. Portable study 09/10/2016, 1:51 AM hours . COMPARISON: None. FINDINGS: There is evidence of right-sided dialysis right femoral venous catheter in place with its tip project ing over the right sacrum. There is also another left femoral central line in place with its tip projecting over the left sacrum . Scattered gas is seen in non-distended small bowel loops. Gas and fecal material is seen in non-dist ended colon. There is no visceromegaly, pneumoperitoneum, or abnormal calcification appreciated. T he lung bases are clear and the osseous structures are intact. IMPRESSION: Evidence of bilateral central femoral catheters in place. Overall nonobstructive bowel gas pattern.
[2016-09-10] MEDS: SODIUM CHLORIDE 0.9% 1,000 ML IV SCH ×8 (02:08→19:11)
[2016-09-10] MEDS: ALBUTEROL NEBULIZED 2.5 MG/3 ML INHALATION SCH ×6 (02:48→23:33)
[2016-09-10 03:41] LABS: Glucose,Whole Blood 145 mg/dL (75-99)
[2016-09-10] MEDS: NOREPINEPHRINE 16 MG in SODIUM CHLORIDE 0.9% 250 ML IV SCH (04:49)
[2016-09-10 04:54] LABS: Basophils % (A) 0 %; CH 32.2; CHCM 33.6; Eosinophils % (A) 0 %; HCT 42.1 % (39.0-53.0); HDW 2.57; HGB 14.1 gm/dL (13.0-17.5); Luc # (Auto) 0.15; Luc % (Auto) 1; Lymphocytes # (A) 2.3 k/uL (1.0-4.8); Lymphocytes % (A) 18 %; MCH 32.2 pg (25.0-35.0); MCHC 33.4 g/dL (31.0-37.0); MCV 96.3 fL (80.0-100.0); Mean Platelet Volume 7.6; Monocytes # (A) 0.7 k/uL (0-1.0); Monocytes % (A) 6 %; Neutrophils # (A) 9.1 k/uL (1.3-7.7); Neutrophils % (A) 74 %; RBC 4.37 m/uL (4.30-5.90); RDW 12.9 % (11.5-15.5); WBC 12.3 k/uL (3.8-10.6); WBC (Perox) 13.16
[2016-09-10 05:02] LABS: ABG Base Excess -3.1 mmol/L; ABG HCO3 22 mmol/L (21-25); ABG PCO2 39 mmHg (35-45); ABG PH 7.36 (7.35-7.45); ABG PO2 75 mmHg (83-108); ABG TCO2 23 mmol/L (19-24)
[2016-09-10 05:11] LABS: Magnesium 1.5 mg/dL (1.6-2.3); Phosphorous 4.1 mg/dL (2.5-4.5); Total Bilirubin 0.6 mg/dL (0.2-1.3); Total Protein 4.7 g/dL (6.3-8.2)
[2016-09-10 05:23] LABS: Calcium 6.5 mg/dL (8.4-10.2)
[2016-09-10 05:28] LABS: INR 1.1 (<1.1); Partial Thromboplastin Time 32.1 sec (22.0-30.0); Prothrombin Time 11.1 sec (9.0-12.0)
[2016-09-10 06:14] LABS: Ethanol Negative (Negative); Isopropanol Negative (Negative)
[2016-09-10] MEDS: MAGNESIUM SULFATE-D5W PMX 1 GM in DEXTROSE/WATER 1 100ML.BAG IVPB SCH ×2 (06:42→08:40)
[2016-09-10] MEDS ORDERED: FOMEPIZOLE 1 GM/ML 1.5 ML VIAL IV ONE (06:45)
[2016-09-10] MEDS ORDERED: FOMEPIZOLE IV ONE ×2 (07:00)
[2016-09-10] MEDS ORDERED: SODIUM CHLORIDE 0.9% IV ONE ×2 (07:00)
[2016-09-10 07:04] LABS: Glucose,Whole Blood 124 mg/dL (75-99)
--- NOTE | 2016-09-10 07:29 | XR ---
EXAMINATION TYPE: XR chest 1V portable DATE OF EXAM: 09/10/2016 6:43 AM CLINICAL HISTORY: Difficulty breathing progress study. TECHNIQUE: Single AP portable upright view of the chest is obtained. COMPARISON: Chest x-ray from one day earlier FINDINGS: The endotracheal tube and orogastric tube are stable in appearance. There is increasing tr iangular opacity right lung base silhouetting right hemidiaphragm with right-sided volume loss sugges ting complete right lower lobe atelectasis. The Left lung remains clear. The cardiac silhouette size is stable and within normal limits. The osseous structures are intact. IMPRESSION: New complete right lower lobe atelectasis, consider obstructing mucous plug. A Yellow message has been communicated to Alexandro Sanabria MD via the [employer] Critical Result system on 09/10/2016 7:27 AM, Message ID [id number].
[2016-09-10] MEDS ORDERED: PROPOFOL 50 ML IV ONE ×6 (08:13→20:33)
[2016-09-10] MEDS: levETIRAcetam IV 500 MG in SODIUM CHLORIDE 0.9% 100 ML IVPB SCH ×2 (08:40→21:38)
[2016-09-10] MEDS: CHLORHEXIDINE GLUCONATE 15 ML CUP MUCOUS MEM SCH ×2 (08:43→21:38)
[2016-09-10] MEDS: PANTOPRAZOLE 40 MG/10 ML VIAL IV SCH (08:47)
[2016-09-10] MEDS ORDERED: SODIUM CHLORIDE 0.9% 1,000 ML with MVI, ADULT NO.4 WITH VIT K 10 ML, THIAMINE 100 MG, F... IV SCH ×4 (09:00)
[2016-09-10] MEDS ORDERED: SODIUM CHLORIDE 0.9% 1,000 ML with THIAMINE 100 MG, FOLIC ACID 1 MG IV SCH ×3 (09:00)
[2016-09-10 09:46] LABS: Amylase 122 U/L (30-110)
--- NOTE | 2016-09-10 10:05 | P.NPCON ---
History of Present Illness - Reason for Consult acute renal failure - History of Present Illness Reason for consultation: Acute kidney injury History of present illness: Patient is a 40-year-old male seen in renal consultation for acute kidney injury. Patient was found unresponsive at home and was subsequently brought to the hospital. He is currently intubated and sedated. Unclear as to what his baseline renal function is but his creatinine was elevated at 3.5 on admission. He was also severely hyperkalemic with a potassium level of 8.7 and acidotic with a bicarbonate level of 18. His urine drug screen was positive for opiates. His serum alcohol level was also elevated at 82. [place] [address]. He did receive IV fluid resuscitation. Overnight he became quite hypotensive and required multiple vasopressors. This morning his blood pressures are significantly improved and he's off all vasopressors at this time. He is oliguric. He underwent hemodialysis treatment last night which was completed this morning around 6 AM. Vital signs are stable. General: The patient appeared well nourished and normally developed. HEENT: Head exam is unremarkable. Neck is without jugular venous distension. LUNGS: Lungs are clear to auscultation and percussion. Breath sounds decreased. HEART: Rate and Rhythm are regular. First and second heart sounds normal. No murmurs, rubs or gallops. ABDOMEN: Abdominal exam reveals normal bowel sounds. Non-tender and non- distended. No evidence of peritonitis. EXTREMITITES: No clubbing, cyanosis, or edema. Past Medical History Past Medical History: No Reported History Additional Past Medical History / Comment(s): alcoholic History of Any Multi-Drug Resistant Organisms: None Reported Additional Past Surgical History / Comment(s): ent, RHINOPLASTY Past Psychological History: Depression Smoking Status: Current every day smoker Past Alcohol Use History: Daily Past Drug Use History: None Reported Medications and Allergies Home Medications Medication Instructions Recorded Confirmed Type Escitalopram Oxalate [Lexapro] 10 mg PO DAILY 09/09/16 09/09/16 History FLUoxetine HCL [PROzac] 20 mg PO DAILY 09/09/16 09/09/16 History Allergies Allergy/AdvReac Type Severity Reaction Status Date / Time seasonal Allergy Rash/Hives Uncoded 09/09/16 15:27 Physical Exam Vitals: Vital Signs Temp Pulse Resp BP Pulse Ox 09/10/16 07:45 99 09/10/16 07:24 93 09/10/16 07:00 93 15 104/64 98 09/10/16 06:45 93 15 108/67 100 09/10/16 06:30 92 16 105/69 100 09/10/16 06:15 91 16 97/69 99 09/10/16 06:00 93 15 106/66 99 09/10/16 05:45 94 16 105/68 99 09/10/16 05:30 98.7 F 93 15 110/71 100 09/10/16 05:15 93 15 109/70 100 09/10/16 05:00 98 16 101/69 98 09/10/16 04:45 87 15 113/77 100 09/10/16 04:30 88 18 109/78 100 09/10/16 04:15 89 16 111/74 100 09/10/16 04:00 89 15 112/77 100 09/10/16 03:45 88 16 116/79 100 09/10/16 03:30 89 15 114/79 99 09/10/16 03:15 99.2 F 88 16 111/75 99 09/10/16 03:00 87 15 119/80 100 09/10/16 02:51 85 09/10/16 02:45 88 16 111/78 99 09/10/16 02:40 86 09/10/16 02:30 88 16 110/74 99 09/10/16 02:15 89 15 122/73 98 09/10/16 02:00 88 16 123/73 97 09/10/16 01:45 87 16 131/73 98 09/10/16 01:30 86 15 131/74 99 09/10/16 01:15 88 16 135/73 98 09/10/16 01:00 88 16 133/73 98 09/10/16 00:45 89 16 116/73 98 09/10/16 00:30 94 21 115/73 100 09/10/16 00:15 89 15 132/77 99 09/10/16 00:00 89 15 113/70 99 09/09/16 23:45 99.2 F 88 15 131/68 100 09/09/16 23:30 86 16 100 09/09/16 23:15 90 15 100 09/09/16 23:12 91 16 100 09/09/16 23:00 100.3 F H 89 16 100 01/07/17 22:45 90 16 98 09/09/16 22:30 90 15 99 09/09/16 22:15 90 16 99 09/09/16 22:00 93 16 100 09/09/16 21:45 94 15 93/61 100 09/09/16 21:30 93 16 87/59 99 09/09/16 21:15 95 16 100 09/09/16 21:00 90 16 77/54 99 09/09/16 20:45 91 16 72/52 100 09/09/16 20:30 95 15 66/51 99 09/09/16 20:17 74 09/09/16 20:15 95 15 73/56 100 09/09/16 20:07 95 09/09/16 20:00 97 16 84/58 100 09/09/16 19:45 99.0 F 97 16 83/68 100 09/09/16 19:30 98 15 81/62 100 09/09/16 19:00 103 H 16 94/61 100 09/09/16 18:45 104 H 16 111/73 100 09/09/16 18:30 104 H 16 113/67 100 09/09/16 18:15 109 H 16 126/73 100 09/09/16 18:00 107 H 16 133/73 100 09/09/16 17:45 100.9 F H 106 H 13 175/99 100 09/09/16 16:41 98.5 F 110 H 16 121/62 99 Intake and Output 09/09/16 09/10/16 09/10/16 22:59 06:59 14:59 Intake Total 3731.294 3111.017 374.479 Output Total 50 Balance 3681.294 3111.017 374.479 Intake: IV 2525.0 2075 325 Dextrose 5% in Water 1, 75 75 000 ml @ 75 mls/hr IV . [id number] BRENNAN with Sodium Bicarb (1 Meq/ml) 150 ml Rx#:[id number] Piperacillin-Tazobactam 3 25.0 .375 gm In Dextrose/Water 1 50ml.bag @ 12.5 mls/hr IVPB ONCE STA Rx#: [id number] Sodium Chloride 0.9% 1, 600 000 ml @ 100 mls/hr IV . Q10H7M ONE with Mvi, Adult No.4 with Vit K 10 ml with Thiamine 100 mg with Folic Acid 1 mg Rx#: [id number] Sodium Chloride 0.9% 1, 1500 2000 250 000 ml @ 250 mls/hr IV . Q4H BRENNAN Rx#:[id number] levETIRAcetam IV 1,000 mg 400 In Saline 1 100ml.bag @ 400 mls/hr IVPB ONCE STA Rx#:[id number] Intake, IV Titration 1382.730 5003.017 49.479 Amount Dextrose 5% in Water 1, 150 375 000 ml @ 75 mls/hr IV . [id number] BRENNAN with Sodium Bicarb (1 Meq/ml) 150 ml Rx#:[id number] Norepinephrine 16 mg In 14.076 280.827 Sodium Chloride 0.9% 250 ml @ Titrate IV .Q0M BRENNAN Rx#:[id number] Phenylephrine 40 mg In 5.397 14.605 Sodium Chloride 0.9% 250 ml @ Titrate IV .Q0M BRENNAN Rx#:[id number] Piperacillin-Tazobactam 3 25.0 .375 gm In Dextrose/Water 1 50ml.bag @ 12.5 mls/hr IVPB Q12H BRENNAN Rx#: [id number] Propofol 500 mg In Empty 36.821 Bag 1 bag @ Titrate IV . Q0M BRENNAN Rx#:[id number] Propofol 500 mg In Empty 190.585 49.479 Bag 1 bag @ Titrate IV . Q0M BRENNAN Rx#:[id number] Sodium Chloride 0.9% 1, 1000 000 ml @ 100 mls/hr IV . Q10H ONE Rx#:[id number] Sodium Chloride 0.9% 99 150 ml @ Titrate IV .Q0M BRENNAN with Vasopressin 20 unit Rx#:[id number] Output: Urine 50 Other: Voiding Method Indwelling Catheter Indwelling Catheter Weight 90.718 kg 100.8 kg ABP, PAP, CO, CI - Last 8 Hours Arterial Blood Pressure 113/56 Arterial Blood Pressure 116/62 Arterial Blood Pressure 119/63 Arterial Blood Pressure 122/67 Arterial Blood Pressure 118/66 Arterial Blood Pressure 121/69 Arterial Blood Pressure 123/69 Arterial Blood Pressure 119/65 Arterial Blood Pressure 123/63 Arterial Blood Pressure 148/78 Arterial Blood Pressure 126/75 Arterial Blood Pressure 120/72 Arterial Blood Pressure 121/72 Arterial Blood Pressure 125/74 Arterial Blood Pressure 130/74 Arterial Blood Pressure 122/72 Arterial Blood Pressure 128/78 Arterial Blood Pressure 131/75 Arterial Blood Pressure 115/68 Arterial Blood Pressure 112/65 Arterial Blood Pressure 132/73 Results - Lab Results Most recent lab results ABG pH 7.36 (7.35-7.45) 09/10/16 04:57 ABG pCO2 39 mmHg (35-45) 09/10/16 04:57 ABG pO2 75 mmHg (83-108) L 09/10/16 04:57 ABG HCO3 22 mmol/L (21-25) 09/10/16 04:57 ABG O2 Saturation 94.0 % (94-97) 09/10/16 04:57 Calcium 6.5 mg/dL (8.4-10.2) L* 09/10/16 04:42 Phosphorus 4.1 mg/dL (2.5-4.5) 09/10/16 04:42 Magnesium 1.5 mg/dL (1.6-2.3) L 09/10/16 04:42 09/10/16 04:42 09/10/16 04:42 Assessment and Plan Plan: Assessment: #1. Oliguric acute kidney injury secondary to severe ATN secondary to rhabdomyolysis and hemodynamic instability. Unclear as to what his baseline renal function is. Creatinine was 3.5 on admission. Urinalysis is benign. #2. Rhabdomyolysis. #3. Anion gap metabolic acidosis secondary to acute kidney injury and lactic acidosis. He was also noted to have a high osmolar gap on admission. He received 2 doses of fomepizole yesterday. The alcohol screen has been negative for ethylene glycol, methanol as well as isopropyl alcohol. #4. Severe hyperkalemia secondary to acute kidney injury and metabolic acidosis. #5. Polysubstance drug abuse. #6. Hypocalcemia secondary to acute kidney injury and rhabdomyolysis. #7. Anoxic brain injury. Plan: In terms of maintenance fluid, continue with normal saline to be run at 200 mL an hour. Repeat CK level today and again tomorrow. 1 g calcium gluconate IV today. Maintain Guzman catheter and monitor urine output closely. Repeat electrolytes 6 PM today and again tomorrow morning. Will plan for the next hemodialysis treatment tomorrow. Thank you for the consultation. I will continue to follow the patient with you during his hospital stay.
--- NOTE | 2016-09-10 10:22 | P.PN ---
Progress Note - Text off all pressors this am renal function improved but very little urine output right femoral dialysis catheter functional after exchanging for a shorter one as discussed with Dr. Chavez; will hold off on repositioning catheter under fluoro for now and see how catheter functions during next dialysis following as needed
--- NOTE | 2016-09-10 10:28 | P.PCN ---
Date of Procedure: 09/10/16 (DELAYED ENTRY FROM 0100) Preoperative Diagnosis: poorly functioning right femoral dialysis catheter Postoperative Diagnosis: same Procedure(s) Performed: exchange of dialysis catheter from 20cm to 15cm length Anesthesia: local Surgeon: Leni Fonseca Indications for Procedure: 40-year-old man with history of acute kidney injury, underwent placement of a non-tunneled right femoral dialysis catheter on 09/09/2016. The catheter is not functioning as it should. There are high venous pressures with flow rates of less than 200 mL/m. Patient is currently scheduled for catheter exchange. Description of Procedure: After sterile prep and drape of the right groin a 035" J-wire was threaded into the right common iliac vein and the 20 cm catheter was exchanged for a 15 cm catheter. All ports aspirated and flushed without difficulty and were immediately connected to the dialysis lines. The patient was placed in a steep reverse Trendelenburg position. Flow rates of 300 cm/s were subsequently achieved. The catheter was secured with a 3-0 silk suture. Sterile dressing was placed.
[2016-09-10] MEDS ORDERED: CALCIUM GLUCONATE 1,000 MG in SODIUM CHLORIDE 0.9% 100 ML IVPB ONE ×2 (11:00→17:37)
--- NOTE | 2016-09-10 11:37 | P.CNPUL ---
History of Present Illness Consult date: 09/10/16 Reason for consult: other (ICU management) Chief complaint: Unresponsive History of present illness: This is a 40-year-old male who presented to the emergency department after his boss apparently found him unresponsive in a chair at home. The patient had been several hours late for work and his pulse went to check on him. The patient was adamantly breathing and was intubated in the emergency department. Overnight the patient was on Levophed, vasopressin, Roderick-Synephrine. He did receive emergent hemodialysis for acidosis, rhabdomyolysis, hyperkalemia. The patient is currently off of all pressors and is hypertensive with systolic blood pressures in the 160s to 170s. He is oliguric. When the propofol is discontinue the patient does wake up and follow commands. Review of Systems ROS unobtainable: due to endotracheal tube Past Medical History Past Medical History: No Reported History Additional Past Medical History / Comment(s): alcoholic History of Any Multi-Drug Resistant Organisms: None Reported Additional Past Surgical History / Comment(s): ent, RHINOPLASTY Past Psychological History: Depression Smoking Status: Current every day smoker Past Alcohol Use History: Daily Past Drug Use History: None Reported Medications and Allergies Home Medications Medication Instructions Recorded Confirmed Type Escitalopram Oxalate [Lexapro] 10 mg PO DAILY 09/09/16 09/09/16 History FLUoxetine HCL [PROzac] 20 mg PO DAILY 09/09/16 09/09/16 History Allergies Allergy/AdvReac Type Severity Reaction Status Date / Time seasonal Allergy Rash/Hives Uncoded 09/09/16 15:27 Physical Exam Osteopathic Statement: *. No significant issues noted on an osteopathic structural exam other than those noted in the History and Physical/Consult. Vitals: Vital Signs Temp Pulse Resp BP Pulse Ox 09/10/16 11:18 112 H 09/10/16 11:15 111 H 16 135/76 99 09/10/16 11:00 101 H 16 120/71 100 09/10/16 10:45 104 H 16 132/66 99 09/10/16 10:30 105 H 16 131/76 99 09/10/16 10:15 105 H 16 119/70 99 09/10/16 10:00 105 H 16 120/71 98 09/10/16 09:45 105 H 16 124/70 98 09/10/16 09:30 106 H 16 124/74 98 09/10/16 09:15 105 H 16 111/67 98 09/10/16 09:00 103 H 16 115/71 98 09/10/16 08:45 99 16 108/65 100 09/10/16 08:30 94 16 99/64 99 09/10/16 08:15 93 16 99/62 98 09/10/16 08:00 98.8 F 90 16 99/62 99 09/10/16 07:45 93 16 95/63 99 09/10/16 07:30 92 16 100/61 99 09/10/16 07:24 93 09/10/16 07:15 93 16 96/64 99 09/10/16 07:00 93 15 104/64 98 09/10/16 06:45 93 15 108/67 100 09/10/16 06:30 92 16 105/69 100 09/10/16 06:15 91 16 97/69 99 09/10/16 06:00 93 15 106/66 99 09/10/16 05:45 94 16 105/68 99 09/10/16 05:30 98.7 F 93 15 110/71 100 09/10/16 05:15 93 15 109/70 100 09/10/16 05:00 98 16 101/69 98 09/10/16 04:45 87 15 113/77 100 09/10/16 04:30 88 18 109/78 100 09/10/16 04:15 89 16 111/74 100 09/10/16 04:00 89 15 112/77 100 09/10/16 03:45 88 16 116/79 100 09/10/16 03:30 89 15 114/79 99 09/10/16 03:15 99.2 F 88 16 111/75 99 09/10/16 03:00 87 15 119/80 100 09/10/16 02:51 85 09/10/16 02:45 88 16 111/78 99 09/10/16 02:40 86 09/10/16 02:30 88 16 110/74 99 09/10/16 02:15 89 15 122/73 98 09/10/16 02:00 88 16 123/73 97 09/10/16 01:45 87 16 131/73 98 09/10/16 01:30 86 15 131/74 99 09/10/16 01:15 88 16 135/73 98 09/10/16 01:00 88 16 133/73 98 09/10/16 00:45 89 16 116/73 98 09/10/16 00:30 94 21 115/73 100 09/10/16 00:15 89 15 132/77 99 09/10/16 00:00 89 15 113/70 99 09/09/16 23:45 99.2 F 88 15 131/68 100 09/09/16 23:30 86 16 100 09/09/16 23:15 90 15 100 09/09/16 23:12 91 16 100 09/09/16 23:00 100.3 F H 89 16 100 09/09/16 22:45 90 16 98 09/09/16 22:30 90 15 99 09/09/16 22:15 90 16 99 09/09/16 22:00 93 16 100 09/09/16 21:45 94 15 93/61 100 09/09/16 21:30 93 16 87/59 99 09/09/16 21:15 95 16 100 09/09/16 21:00 90 16 77/54 99 09/09/16 20:45 91 16 72/52 100 09/09/16 20:30 95 15 66/51 99 09/09/16 20:17 74 09/09/16 20:15 95 15 73/56 100 09/09/16 20:07 95 09/09/16 20:00 97 16 84/58 100 09/09/16 19:45 99.0 F 97 16 83/68 100 09/09/16 19:30 98 15 81/62 100 09/09/16 19:00 103 H 16 94/61 100 09/09/16 18:45 104 H 16 111/73 100 09/09/16 18:30 104 H 16 113/67 100 09/09/16 18:15 109 H 16 126/73 100 09/09/16 18:00 107 H 16 133/73 100 09/09/16 17:45 100.9 F H 106 H 13 175/99 100 09/09/16 16:41 98.5 F 110 H 16 121/62 99 Intake and Output 09/09/16 09/10/16 09/10/16 22:59 06:59 14:59 Intake Total 3731.294 3111.017 1037.947 Output Total 50 5 Balance 3681.294 3111.017 1032.947 Intake: IV 2525.0 2075 975 Calcium Gluconate 1,000 100 mg In Sodium Chloride 0.9 % 100 ml @ 100 mls/hr IVPB ONCE ONE Rx#: [id number] Dextrose 5% in Water 1, 75 225 000 ml @ 75 mls/hr IV . [id number] BRENNAN with Sodium Bicarb (1 Meq/ml) 150 ml Rx#:[id number] Piperacillin-Tazobactam 3 25.0 .375 gm In Dextrose/Water 1 50ml.bag @ 12.5 mls/hr IVPB ONCE STA Rx#: [id number] Sodium Chloride 0.9% 1, 600 000 ml @ 100 mls/hr IV . Q10H7M ONE with Mvi, Adult No.4 with Vit K 10 ml with Thiamine 100 mg with Folic Acid 1 mg Rx#: [id number] Sodium Chloride 0.9% 1, 1500 2000 650 000 ml @ 200 mls/hr IV . Q5H BRENNAN Rx#:[id number] levETIRAcetam IV 1,000 mg 400 In Saline 1 100ml.bag @ 400 mls/hr IVPB ONCE STA Rx#:[id number] Intake, IV Titration 3338.220 6212.017 62.947 Amount Dextrose 5% in Water 1, 150 375 000 ml @ 75 mls/hr IV . [id number] BRENNAN with Sodium Bicarb (1 Meq/ml) 150 ml Rx#:[id number] Norepinephrine 16 mg In 14.076 280.827 Sodium Chloride 0.9% 250 ml @ Titrate IV .Q0M BRENNAN Rx#:[id number] Phenylephrine 40 mg In 5.397 14.605 Sodium Chloride 0.9% 250 ml @ Titrate IV .Q0M BRENNAN Rx#:[id number] Piperacillin-Tazobactam 3 25.0 .375 gm In Dextrose/Water 1 50ml.bag @ 12.5 mls/hr IVPB Q12H BRENNAN Rx#: [id number] Propofol 500 mg In Empty 36.821 Bag 1 bag @ Titrate IV . Q0M BRENNAN Rx#:[id number] Propofol 500 mg In Empty 190.585 62.947 Bag 1 bag @ Titrate IV . Q0M BRENNAN Rx#:[id number] Sodium Chloride 0.9% 1, 1000 000 ml @ 100 mls/hr IV . Q10H ONE Rx#:[id number] Sodium Chloride 0.9% 99 150 ml @ Titrate IV .Q0M BRENNAN with Vasopressin 20 unit Rx#:[id number] Output: Urine 50 5 Other: Voiding Method Indwelling Catheter Indwelling Catheter Indwelling Catheter Weight 90.718 kg 100.8 kg ABP, PAP, CO, CI - Last 8 Hours Arterial Blood Pressure 170/82 Arterial Blood Pressure 154/75 Arterial Blood Pressure 159/76 Arterial Blood Pressure 166/78 Arterial Blood Pressure 162/75 Arterial Blood Pressure 167/76 Arterial Blood Pressure 167/74 Arterial Blood Pressure 169/74 Arterial Blood Pressure 167/70 Arterial Blood Pressure 146/65 Arterial Blood Pressure 141/69 Arterial Blood Pressure 126/62 Arterial Blood Pressure 125/61 Arterial Blood Pressure 110/39 Arterial Blood Pressure 106/58 Arterial Blood Pressure 106/54 Arterial Blood Pressure 117/57 Arterial Blood Pressure 113/56 Arterial Blood Pressure 116/62 Arterial Blood Pressure 119/63 Arterial Blood Pressure 122/67 Arterial Blood Pressure 118/66 Arterial Blood Pressure 121/69 Arterial Blood Pressure 123/69 Arterial Blood Pressure 119/65 Arterial Blood Pressure 123/63 Arterial Blood Pressure 148/78 Arterial Blood Pressure 126/75 Arterial Blood Pressure 120/72 Arterial Blood Pressure 121/72 Arterial Blood Pressure 125/74 Arterial Blood Pressure 130/74 Gen.: Patient is sedated on ventilator. However when sedation is held the patient does wake up and follow commands Cardiovascular: Regular rate and rhythm, S1/S2, tachycardic Lungs: Diminished breath sounds at the bilateral bases Abdomen: Soft nontender nondistended positive bowel sounds Extremities: Trace edema, left lower extremity warm to touch Results - Laboratory Findings CBC and BMP: 09/10/16 04:42 09/10/16 04:42 ABG ABG pH 7.36 (7.35-7.45) 09/10/16 04:57 ABG pCO2 39 mmHg (35-45) 09/10/16 04:57 ABG pO2 75 mmHg (83-108) L 09/10/16 04:57 ABG O2 Saturation 94.0 % (94-97) 09/10/16 04:57 PT/INR, D-dimer PT 11.1 sec (9.0-12.0) 09/10/16 04:42 INR 1.1 (<1.1) 09/10/16 04:42 Abnormal lab findings: Abnormal Labs 09/09/16 09/09/16 09/09/16 17:00 18:21 20:11 WBC Plt Count Neutrophils # APTT ABG pH 7.18 L* 7.26 L ABG pCO2 51 H 34 L ABG pO2 363 H 172 H ABG HCO3 18 L 15 L ABG Total CO2 16 L ABG O2 Saturation 100.0 H 99.0 H Sodium 146 H Potassium 6.6 H* Chloride 115 H Carbon Dioxide 19 L BUN 21 H Creatinine 3.29 H Glucose 142 H POC Glucose (mg/dL) Calcium 7.5 L Ionized Calcium Sandro Magnesium AST ALT Creatine Kinase CK-MB (CK-2) Total Protein Albumin Amylase 09/10/16 09/10/16 09/10/16 03:39 04:42 04:42 WBC 12.3 H Plt Count 128 L Neutrophils # 9.1 H APTT 32.1 H ABG pH ABG pCO2 ABG pO2 ABG HCO3 ABG Total CO2 ABG O2 Saturation Sodium Potassium Chloride Carbon Dioxide BUN Creatinine Glucose POC Glucose (mg/dL) 145 H Calcium Ionized Calcium Sandro Magnesium AST ALT Creatine Kinase CK-MB (CK-2) Total Protein Albumin Amylase 09/10/16 09/10/16 09/10/16 04:42 04:42 04:42 WBC Plt Count Neutrophils # APTT ABG pH ABG pCO2 ABG pO2 ABG HCO3 ABG Total CO2 ABG O2 Saturation Sodium Potassium Chloride 109 H Carbon Dioxide BUN Creatinine 2.70 H Glucose 145 H POC Glucose (mg/dL) Calcium 6.5 L* Ionized Calcium Sandro Magnesium 1.5 L AST 6429 H ALT 2267 H Creatine Kinase CK-MB (CK-2) 264.0 H* Total Protein 4.7 L Albumin 2.7 L Amylase 122 H 09/10/16 09/10/16 09/10/16 04:42 04:57 06:11 WBC Plt Count Neutrophils # APTT ABG pH ABG pCO2 ABG pO2 75 L ABG HCO3 ABG Total CO2 ABG O2 Saturation Sodium Potassium Chloride Carbon Dioxide BUN Creatinine Glucose POC Glucose (mg/dL) Calcium Ionized Calcium Sandro 3.9 L Magnesium AST ALT Creatine Kinase >69654 H CK-MB (CK-2) Total Protein Albumin Amylase 09/10/16 07:02 WBC Plt Count Neutrophils # APTT ABG pH ABG pCO2 ABG pO2 ABG HCO3 ABG Total CO2 ABG O2 Saturation Sodium Potassium Chloride Carbon Dioxide BUN Creatinine Glucose POC Glucose (mg/dL) 124 H Calcium Ionized Calcium Sandro Magnesium AST ALT Creatine Kinase CK-MB (CK-2) Total Protein Albumin Amylase - Diagnostic Findings Chest x-ray: report reviewed, image reviewed Assessment and Plan Plan: Acute hypoxic respiratory failure requiring mechanical ventilation Severe refractory Shock Right lower lobe atelectasis, aspiration event Severe metabolic acidosis, anion gap with mixed respiratory acidosis Severe hyperkalemia Acute renal failure, requiring hemodialysis Rhabdomyolysis Lactic acidosis Possible seizure activity Hypomagnesemia Shock liver History of opiate and alcohol abuse Active tobacco abuse Continue full vent support, wean FiO2 as able Sports bed with chest PT Will add Mucomyst Monitor labs IV fluids at 200 mL per hour Monitor urine output Continue propofol for now Ativan PRN seizure Antibiotics: Jessica Perez Neurology recommendations, EEG Bilateral lower extremity Dopplers and carotid Dopplers Pain control Patient is currently off of pressors and is hypertensive, will order hydralazine as needed Nephrology recommendations, probable hemodialysis tomorrow GI and DVT prophylaxis Thank you for this consultation. We will continue to follow along.
[2016-09-10 12:15] LABS: Glucose,Whole Blood 96 mg/dL (75-99)
[2016-09-10] MEDS ORDERED: ACETYLCYSTEINE 800 MG/4 ML VIAL INHALATION SCH (13:00)
--- NOTE | 2016-09-10 13:52 | US ---
EXAMINATION TYPE: US carotid duplex BILAT DATE OF EXAM: 09/10/2016 1:32 PM COMPARISON: CT Brain on PACS CLINICAL HISTORY: left neck swelling; Question vascular injury/ no venous or arterial access lines ar e at left neck nor puncture sites visible. EXAM MEASUREMENTS: RIGHT: Peak Systolic Velocity (PSV) cm/sec ----- Right CCA: 61.2 ----- Right ICA: 62.5 ----- Right ECA: 93.8 ICA/CCA ratio: 1.0 RIGHT: End Diastole cm/sec ----- Right CCA: 20.7 ----- Right ICA: 29.9 ----- Right ECA: 18.1 LEFT: Peak Systolic Velocity (PSV) cm/sec ----- Left CCA: 72.9 ----- Left ICA: 87.3 ----- Left ECA: 91.5 ICA/CCA ratio: 1.2 LEFT: End Diastole cm/sec ----- Left CCA: 29.9 ----- Left ICA: 36.4 ----- Left ECA: 17.3 VERTEBRALS (direction of flow): Right Vertebral: Antegrade Left Vertebral: Antegrade FINDINGS: no palpable mass is seen at medial left neck swelling indicated by ICU patient's RN; tissu e edema channels are noted anteriorly at left neck swelling; mild intimal wall changes are noted at b ilateral carotid bifurcation, but PSV is within normal limits bilaterally. IMPRESSION: 1. There appears to be evidence of soft tissue edema left neck. 2. Mild atherosclerotic plaque with no significant hemodynamic stenosis.
[2016-09-10] MEDS: MORPHINE SULFATE 2 MG/ML SYRINGE IVP PRN ×3 (14:14→23:09)
--- NOTE | 2016-09-10 14:20 | US ---
EXAMINATION TYPE: US venous doppler duplex LE DATE OF EXAM: 09/10/2016 1:32 PM COMPARISON: NONE CLINICAL HISTORY: left lower anterior thigh swelling; patient has hemodialysis graft and adhering tap e at right groin, left arterial line with adhesive tape at left groin, and left Guzman Catheter tubing adhered to left mid thigh, thus exam is technically limited to veins distal to groin equipment and a dhesive dressings SIDE PERFORMED: Bilateral VESSELS IMAGED: Femoral Vein Popliteal Vein Small Saphenous Vein * Proximal Calf Veins (* superficial vessels) Right Leg: Negative for DVT Left Leg: Negative for DVT TECHNOLOGIST IMPRESSION: IMPRESSION: There is no evidence of deep venous thrombosis in the left and right leg.
[2016-09-10] MEDS: ACETYLCYSTEINE 800 MG/4 ML VIAL INHALATION SCH ×2 (15:44→19:12)
--- NOTE | 2016-09-10 16:05 | P.PN ---
Subjective This patient is a 40-year-old right-handed white male who was admitted just after being found unresponsive at his home. Patient was found to have evidence of acute hypoxic respiratory failure and was intubated and transferred to the intensive care unit yesterday. He was seen for neurology consultation yesterday and had evidence of severe anoxic encephalopathy. He remains on a Diprivan drip at this time. He underwent a venous Doppler ultrasound today which was negative for any evidence of DVT in the lower extremities. He did develop severe hyperkalemia and did require hemodialysis yesterday. He is seen by nephrology and will be scheduled for hemodialysis tomorrow. He has evidence of ATN secondary to rhabdomyolysis. His initial admission serum creatinine was elevated at 3.5. Patient remains on Diprivan drip. When he is weaned off of the Diprivan he is very agitated and restless. He was started on Keppra for possible seizure activity. We will be obtaining an EEG tomorrow for further evaluation. Patient likely has some degree of anoxic brain injury secondary to his acute respiratory failure. We will continue close neurological follow-up of this patient in the intensive care unit. According to the ICU nurse he has a extensive history of alcohol abuse drinking over 20 beers a day. He may benefit from [facility] protocol for further management. His overall prognosis at this time remains very guarded. Objective - Vital Signs Vital signs: Vital Signs Temp 98.8 F 09/10/16 08:00 Pulse 110 H 09/10/16 11:35 Resp 16 09/10/16 11:15 BP 135/76 09/10/16 11:15 Pulse Ox 99 09/10/16 11:15 Intake & Output 09/09/16 09/10/16 09/10/16 18:59 06:59 18:59 Intake Total 289.955 6124.013 1074.479 Output Total 30 20 5 Balance 532.403 5567.013 1069.479 Weight 100.8 kg Intake: IV 725.0 3875 975 Calcium Gluconate 1,000 100 mg In Sodium Chloride 0.9 % 100 ml @ 100 mls/hr IVPB ONCE ONE Rx#: [id number] Dextrose 5% in Water 1, 75 225 000 ml @ 75 mls/hr IV . [id number] BRENNAN with Sodium Bicarb (1 Meq/ml) 150 ml Rx#:[id number] Piperacillin-Tazobactam 3 25.0 .375 gm In Dextrose/Water 1 50ml.bag @ 12.5 mls/hr IVPB ONCE STA Rx#: [id number] Sodium Chloride 0.9% 1, 200 400 000 ml @ 100 mls/hr IV . Q10H7M ONE with Mvi, Adult No.4 with Vit K 10 ml with Thiamine 100 mg with Folic Acid 1 mg Rx#: [id number] Sodium Chloride 0.9% 1, 500 3000 650 000 ml @ 200 mls/hr IV . Q5H BRENNAN Rx#:[id number] levETIRAcetam IV 1,000 mg 400 In Saline 1 100ml.bag @ 400 mls/hr IVPB ONCE STA Rx#:[id number] Intake, IV Titration 26.298 2216.013 99.479 Amount Dextrose 5% in Water 1, 525 000 ml @ 75 mls/hr IV . [id number] BRENNAN with Sodium Bicarb (1 Meq/ml) 150 ml Rx#:[id number] Norepinephrine 16 mg In 294.903 Sodium Chloride 0.9% 250 ml @ Titrate IV .Q0M BRENNAN Rx#:[id number] Phenylephrine 40 mg In 20.002 Sodium Chloride 0.9% 250 ml @ Titrate IV .Q0M BRENNAN Rx#:[id number] Piperacillin-Tazobactam 3 25.0 .375 gm In Dextrose/Water 1 50ml.bag @ 12.5 mls/hr IVPB Q12H BRENNAN Rx#: [id number] Propofol 500 mg In Empty 26.298 10.523 Bag 1 bag @ Titrate IV . Q0M BRENNAN Rx#:[id number] Propofol 500 mg In Empty 190.585 99.479 Bag 1 bag @ Titrate IV . Q0M BRENNAN Rx#:[id number] Sodium Chloride 0.9% 1, 1000 000 ml @ 100 mls/hr IV . Q10H ONE Rx#:[id number] Sodium Chloride 0.9% 99 150 ml @ Titrate IV .Q0M BRENNAN with Vasopressin 20 unit Rx#:[id number] Output: Urine 30 20 5 Other: Voiding Method Indwelling Catheter Indwelling Catheter Indwelling Catheter ABP, PAP, CO, CI - Last Documented Arterial Blood Pressure 170/82 - Exam Physical examination: PHYSICAL EXAMINATION: Patient is resting comfortably in bed. Patient currently intubated on the ventilator on Diprivan drip. VITAL SIGNS: Blood pressure is [114/67]. Heart rate is [100]. Respiration is [16 ]. Temperature is [98.9]. HEENT: Head is atraumatic, neck is supple, there were no carotid bruits. CHEST: Lungs are clear to auscultation and percussion. CARDIAC: S1, S2 normal rate and rhythm. There is no murmur. ABDOMEN: Soft and nontender. Bowel sounds are present. EXTREMITIES: There is no pedal edema. Peripheral pulses are present. Neurological examination: Patient intubated on the ventilator on Diprivan drip. Neurological examination is limited at this time. - Labs CBC & Chem 7: 09/10/16 04:42 09/10/16 04:42 Labs: Abnormal Lab Results - Last 24 Hours (Table) 09/09/16 09/09/16 09/09/16 Range/Units 17:00 18:21 20:11 WBC (3.8-10.6) k/uL Plt Count (150-450) k/uL Neutrophils # (1.3-7.7) k/uL APTT (22.0-30.0) sec ABG pH 7.18 L* 7.26 L (7.35-7.45) ABG pCO2 51 H 34 L (35-45) mmHg ABG pO2 363 H 172 H (83-108) mmHg ABG HCO3 18 L 15 L (21-25) mmol/L ABG Total CO2 16 L (19-24) mmol/L ABG O2 Saturation 100.0 H 99.0 H (94-97) % Sodium 146 H (137-145) mmol/L Potassium 6.6 H* (3.5-5.1) mmol/L Chloride 115 H (98-107) mmol/L Carbon Dioxide 19 L (22-30) mmol/L BUN 21 H (9-20) mg/dL Creatinine 3.29 H (0.66-1.25) mg/dL Glucose 142 H (74-99) mg/dL POC Glucose (mg/dL) (75-99) mg/dL Calcium 7.5 L (8.4-10.2) mg/dL Ionized Calcium Sandro (4.5-5.3) mg/dL Magnesium (1.6-2.3) mg/dL AST (17-59) U/L ALT (21-72) U/L Creatine Kinase (55-170) U/L CK-MB (CK-2) (0.0-2.4) ng/mL Total Protein (6.3-8.2) g/dL Albumin (3.5-5.0) g/dL Amylase (30-110) U/L 09/10/16 09/10/16 09/10/16 Range/Units 03:39 04:42 04:42 WBC 12.3 H (3.8-10.6) k/uL Plt Count 128 L (150-450) k/uL Neutrophils # 9.1 H (1.3-7.7) k/uL APTT 32.1 H (22.0-30.0) sec ABG pH (7.35-7.45) ABG pCO2 (35-45) mmHg ABG pO2 (83-108) mmHg ABG HCO3 (21-25) mmol/L ABG Total CO2 (19-24) mmol/L ABG O2 Saturation (94-97) % Sodium (137-145) mmol/L Potassium (3.5-5.1) mmol/L Chloride (98-107) mmol/L Carbon Dioxide (22-30) mmol/L BUN (9-20) mg/dL Creatinine (0.66-1.25) mg/dL Glucose (74-99) mg/dL POC Glucose (mg/dL) 145 H (75-99) mg/dL Calcium (8.4-10.2) mg/dL Ionized Calcium Sandro (4.5-5.3) mg/dL Magnesium (1.6-2.3) mg/dL AST (17-59) U/L ALT (21-72) U/L Creatine Kinase (55-170) U/L CK-MB (CK-2) (0.0-2.4) ng/mL Total Protein (6.3-8.2) g/dL Albumin (3.5-5.0) g/dL Amylase (30-110) U/L 09/10/16 09/10/16 09/10/16 Range/Units 04:42 04:42 04:42 WBC (3.8-10.6) k/uL Plt Count (150-450) k/uL Neutrophils # (1.3-7.7) k/uL APTT (22.0-30.0) sec ABG pH (7.35-7.45) ABG pCO2 (35-45) mmHg ABG pO2 (83-108) mmHg ABG HCO3 (21-25) mmol/L ABG Total CO2 (19-24) mmol/L ABG O2 Saturation (94-97) % Sodium (137-145) mmol/L Potassium (3.5-5.1) mmol/L Chloride 109 H (98-107) mmol/L Carbon Dioxide (22-30) mmol/L BUN (9-20) mg/dL Creatinine 2.70 H (0.66-1.25) mg/dL Glucose 145 H (74-99) mg/dL POC Glucose (mg/dL) (75-99) mg/dL Calcium 6.5 L* (8.4-10.2) mg/dL Ionized Calcium Sandro (4.5-5.3) mg/dL Magnesium 1.5 L (1.6-2.3) mg/dL AST 6429 H (17-59) U/L ALT 2267 H (21-72) U/L Creatine Kinase (55-170) U/L CK-MB (CK-2) 264.0 H* (0.0-2.4) ng/mL Total Protein 4.7 L (6.3-8.2) g/dL Albumin 2.7 L (3.5-5.0) g/dL Amylase 122 H (30-110) U/L 09/10/16 09/10/16 09/10/16 Range/Units 04:42 04:57 06:11 WBC (3.8-10.6) k/uL Plt Count (150-450) k/uL Neutrophils # (1.3-7.7) k/uL APTT (22.0-30.0) sec ABG pH (7.35-7.45) ABG pCO2 (35-45) mmHg ABG pO2 75 L (83-108) mmHg ABG HCO3 (21-25) mmol/L ABG Total CO2 (19-24) mmol/L ABG O2 Saturation (94-97) % Sodium (137-145) mmol/L Potassium (3.5-5.1) mmol/L Chloride (98-107) mmol/L Carbon Dioxide (22-30) mmol/L BUN (9-20) mg/dL Creatinine (0.66-1.25) mg/dL Glucose (74-99) mg/dL POC Glucose (mg/dL) (75-99) mg/dL Calcium (8.4-10.2) mg/dL Ionized Calcium Sandro 3.9 L (4.5-5.3) mg/dL Magnesium (1.6-2.3) mg/dL AST (17-59) U/L ALT (21-72) U/L Creatine Kinase >34789 H (55-170) U/L CK-MB (CK-2) (0.0-2.4) ng/mL Total Protein (6.3-8.2) g/dL Albumin (3.5-5.0) g/dL Amylase (30-110) U/L 09/10/16 Range/Units 07:02 WBC (3.8-10.6) k/uL Plt Count (150-450) k/uL Neutrophils # (1.3-7.7) k/uL APTT (22.0-30.0) sec ABG pH (7.35-7.45) ABG pCO2 (35-45) mmHg ABG pO2 (83-108) mmHg ABG HCO3 (21-25) mmol/L ABG Total CO2 (19-24) mmol/L ABG O2 Saturation (94-97) % Sodium (137-145) mmol/L Potassium (3.5-5.1) mmol/L Chloride (98-107) mmol/L Carbon Dioxide (22-30) mmol/L BUN (9-20) mg/dL Creatinine (0.66-1.25) mg/dL Glucose (74-99) mg/dL POC Glucose (mg/dL) 124 H (75-99) mg/dL Calcium (8.4-10.2) mg/dL Ionized Calcium Sandro (4.5-5.3) mg/dL Magnesium (1.6-2.3) mg/dL AST (17-59) U/L ALT (21-72) U/L Creatine Kinase (55-170) U/L CK-MB (CK-2) (0.0-2.4) ng/mL Total Protein (6.3-8.2) g/dL Albumin (3.5-5.0) g/dL Amylase (30-110) U/L Assessment and Plan (1) Anoxic encephalopathy Status: Acute Code(s): G93.1 - ANOXIC BRAIN DAMAGE, NOT ELSEWHERE CLASSIFIED (2) Acute hyperkalemia Status: Acute Code(s): E87.5 - HYPERKALEMIA (3) Acute respiratory failure Status: Acute Code(s): J96.00 - ACUTE RESPIRATORY FAILURE, UNSP W HYPOXIA OR HYPERCAPNIA (4) Alcoholic hepatitis Status: Acute Code(s): K70.10 - ALCOHOLIC HEPATITIS WITHOUT ASCITES (5) Sepsis Status: Acute Code(s): A41.9 - SEPSIS, UNSPECIFIED ORGANISM Plan: This patient is a 40-year-old male who was 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 The patient was late for work for over 3 hours and his fireworks assembly supervisor and went to check on him. He found him sitting in a chair unresponsive. It is unclear how long he may have been in this position but it is estimated to be over 2 hours. Patient was having shallow breathing. When EMS arrived they had to intubate him. He was transferred to the emergency room where he was further evaluated. He underwent a computed tomography scan of the brain results which are noted above. CAT scan was negative for any acute changes. He was intubated due to respiratory failure and aspiration pneumonia and transferred to the intensive care unit. Initially in the ICU he had some muscle twitching. This is felt to be secondary to severe anoxic encephalopathy. He has been started on levetiracetam and we will monitor his response closely. This patient has a severe anoxic encephalopathy secondary to respiratory failure. Etiology of his respiratory failure is undetermined at this time. He does have evidence of aspiration pneumonia as well on chest x- ray. We reviewed the computed tomography scan of the brain which is negative for any acute changes. We will obtain routine EEG for further assessment. He shouldn't is be maintained on levetiracetam at this time. We will check a level and adjust his dose as needed. His Keppra level is still pending this morning. We will obtain his EEG tomorrow for further review. He does have history of underlying alcohol abuse and may benefit from CIWA protocol as he does show signs of early DTs. Apparently the patient drinks heavily at home on a regular basis. This was conveyed today via the ICU nurse who apparently received some information on his alcohol abuse history recently. Apparently he is unable to remain off of the propofol due to increased tremors. We will continue his current Keppra dose until we obtain his most recent level. This patient's overall prognosis at this time remains very guarded. We will continue close neurological follow-up of this patient in the intensive care unit.
[2016-09-10 17:24] LABS: Potassium 4.4 mmol/L (3.5-5.1)
[2016-09-10 17:36] LABS: Calcium 6.2 mg/dL (8.4-10.2)
--- NOTE | 2016-09-10 17:44 | HP ---
DATE OF ADMISSION: 09/09/2016 CHIEF COMPLAINT: A 40-year-old male who comes in unresponsive on the ventilator. HISTORY OF PRESENT ILLNESS: A 40-year-old white male admitted to ICU on a ventilator after being found after several hours unresponsive in a recliner. EMS was called. Narcan was given. He was sent to the ER, found very lethargic and not able to cooperate with questioning. No drug paraphernalia was found at the scene. ER doctor found he has severe liver failure, severe pancreatitis, severe rhabdomyolysis, possibly due to pancreatitis and maybe some alcohol abuse, triggering pancreatitis and came in unresponsive for which he was intubated in the ER and sent to the ICU for which he was seen at this time. Home medications: He takes: Lexapro for depression 10 mg a day. REVIEW OF SYSTEMS: Negative was is seen in the HPI. Patient is unresponsive with questioning. PAST SURGICAL HISTORY: Possibly some alcoholism and depression. Rhinoplasty surgery in the past. He has had a history of nicotine addiction, possibly alcoholism. PHYSICAL EXAMINATION: GENERAL: Well developed, well-nourished male on the ventilator. ENDOCRINE: BMI is over 30. CARDIOVASCULAR: S1, S2. LUNGS: Showed decreased breath sounds, ventilator soundings. GI: ABDOMEN: Soft. No mass. Normal bowel sounds. BACK: Normal inspection. NEUROLOGIC: Appears to move 4 extremities. Psych unable to obtain. He is on the vent. SKIN: No rashes. PSYCHIATRIC: Fair skin turgor. VITAL SIGNS: Pulse in the low 100s in the ER. Temperature is 97.8, respiratory rate 18 to 20, O2 sats 400, blood pressure is 120s/50's to 60s. ABG in the ER showed a pH of 7.12, pCO2 of 54, white count 17.3, hemoglobin is 15.9. ER UA was negative. He did have some opiates positive in his drug screen. Negative for everything else. EKG shows sinus tachycardia and right bundle branch block. All labs, ER records were reviewed. ASSESSMENT: 1. He has acute respiratory failure. 2. Acute encephalopathy, acute renal failure, acute rhabdomyolysis. 3. Acute hyperkalemia secondary to rhabdomyolysis. 4. Acute alcoholic hepatitis. 5. Acute alcohol intoxication. 6. Aspiration pneumonitis. 7. Sepsis. 8. Acute pancreatitis. Prognosis is fair to poor. Surgical consultation is planned. ICU care with Dr. Gunderson. Cardiology. Surgical consultation. All will be done. Multiple tests will be done. ICU time: 45 minutes.
--- NOTE | 2016-09-10 18:07 | PN ---
ICU TIME: 30 minutes. SUBJECTIVE: A 40-year-old white male remains on the ventilator. He is low calcium today. Calcium gluconate has been replaced. He had low magnesium, magnesium has been replaced. He appears to have severe renal failure with oliguria, secondary to severe rhabdomyolysis and severe pancreatitis and possibly some liver failure. ABG shows 7.36 up from 7.15 in the ER and the pCO2 is 39, pO2 is 75, bicarb 22, calcium 6.5, phosphorus 4.1. Magnesium as mentioned at 1.5. He remains on the ventilator, he is biting on the vent tube. Dr. Enrique is running the ventilator, the ventilator is reviewed. Labs reviewed. Lungs are essentially diffuse breath sounds with fair flow. Scattered wheeze. CARDIOVASCULAR: S1, S2, some tachycardia. ABDOMEN: Soft. No mass. Labs were reviewed. ASSESSMENT: 1. Oliguric acute kidney injury secondary to severe acute tubular necrosis secondary to rhabdomyolysis. Creatinine is down from 3.5 to 2.7 today. White count is down to 12.3, hemoglobin is 14.1, platelet count is 128,000. 2. Rhabdomyolysis and anion gap metabolic acidosis secondary to acute renal injury, lactic acidosis, severe hyperkalemia. 3. Polysubstance drug abuse with alcohol. 4. Hypocalcemia. 5. Anoxic brain injury. Replace magnesium and calcium gluconate, continue with IV fluids for rhabdomyolysis 200 mL an hour. Possibly dialysis will be needed again today, it was given last night in the middle of the night due to severe hyperkalemia. To get a repeat electrolytes and possibly dialysis. Broad-spectrum antibiotics. A surgical consult for pancreatitis will be done. ICU TIME: 30 minutes.
[2016-09-10 19:33] LABS: Glucose,Whole Blood 102 mg/dL (75-99)
[2016-09-10] MEDS: hydrALAZINE HCL 20 MG/ML 1 ML VIAL IVP PRN (19:44)
[2016-09-11 00:02] LABS: Glucose,Whole Blood 75 mg/dL (75-99)
[2016-09-11] MEDS ORDERED: PROPOFOL 50 ML IV ONE ×4 (00:27→20:47)
[2016-09-11] MEDS: PIPERACILLIN-TAZOBACTAM 3.375 GM in DEXTROSE/WATER 1 50ML.BAG IVPB SCH ×2 (00:38→11:37)
[2016-09-11] MEDS: HEPARIN SODIUM,PORCINE 5,000 UNIT/ML 1 ML VIAL SQ SCH ×3 (00:38→15:52)
[2016-09-11] MEDS: SODIUM CHLORIDE 0.9% 1,000 ML IV SCH ×5 (00:38→18:12)
[2016-09-11] MEDS: ALBUTEROL NEBULIZED 2.5 MG/3 ML INHALATION SCH ×6 (03:19→23:16)
[2016-09-11 05:03] LABS: Basophils % (A) 0 %; CH 32.2; CHCM 33.2; Eosinophils # (A) 0.1 k/uL (0-0.7); Eosinophils % (A) 1 %; HCT 33.2 % (39.0-53.0); HDW 2.56; HGB 11.6 gm/dL (13.0-17.5); Luc # (Auto) 0.13; Luc % (Auto) 1; Lymphocytes # (A) 0.8 k/uL (1.0-4.8); Lymphocytes % (A) 8 %; MCH 34.1 pg (25.0-35.0); MCHC 34.9 g/dL (31.0-37.0); MCV 97.5 fL (80.0-100.0); Mean Platelet Volume 8.3; Monocytes # (A) 0.4 k/uL (0-1.0); Monocytes % (A) 4 %; Neutrophils % (A) 87 %; RDW 12.8 % (11.5-15.5); WBC 10.4 k/uL (3.8-10.6); WBC (Perox) 11.07
[2016-09-11 05:18] LABS: Alkaline Phosphatase 57 U/L (38-126); Anion Gap 12 mmol/L; Blood Urea Nitrogen 27 mg/dL (9-20); Carbon Dioxide 19 mmol/L (22-30); Chloride 110 mmol/L (98-107); Glucose 114 mg/dL (74-99); Magnesium 1.9 mg/dL (1.6-2.3); Phosphorous 6.8 mg/dL (2.5-4.5); Potassium 4.3 mmol/L (3.5-5.1); Sodium 141 mmol/L (137-145); Total Bilirubin 0.7 mg/dL (0.2-1.3)
[2016-09-11 05:22] LABS: Manual Review Performed
[2016-09-11 05:38] LABS: ABG HCO3 19 mmol/L (21-25); ABG PCO2 40 mmHg (35-45); ABG PH 7.29 (7.35-7.45); ABG PO2 140 mmHg (83-108); ABG TCO2 20 mmol/L (19-24)
[2016-09-11] MEDS: PROPOFOL 500 MG in EMPTY BAG 1 BAG IV SCH ×7 (05:43→18:53)
[2016-09-11 05:59] LABS: Non-African American GFR(MDRD) 10 (>60 ml/min/1.73 sqM)
[2016-09-11 06:00] LABS: ALT 1267 U/L (21-72); AST 2237 U/L (17-59); Creatine Kinase >32000 U/L (55-170)
[2016-09-11 06:03] LABS: Calcium 6.1 mg/dL (8.4-10.2)
[2016-09-11 06:35] LABS: Prothrombin Time 10.2 sec (9.0-12.0)
[2016-09-11 06:56] LABS: Glucose,Whole Blood 104 mg/dL (75-99)
--- NOTE | 2016-09-11 07:19 | XR ---
EXAMINATION TYPE: XR chest 1V portable DATE OF EXAM: 09/11/2016 6:47 AM HISTORY: Shortness of breath. COMPARISON: 09/10/2016 TECHNIQUE: Single view of the chest is submitted. FINDINGS: Endotracheal and NG tubes are unchanged in position. Persistent but significantly improving right lower lobe infiltrate and/or atelectasis. The heart is stable. Hilar and mediastinal structures are within normal limits. Degenerative changes are seen of the dorsal spine. IMPRESSION: 1. Persistent but significantly improving right lower lobe infiltrate and/or atelectasis.
[2016-09-11] MEDS: ACETYLCYSTEINE 800 MG/4 ML VIAL INHALATION SCH ×4 (07:50→19:48)
[2016-09-11] MEDS ORDERED: HEPARIN SODIUM,PORCINE 5,000 UNIT/ML 1 ML VIAL ONE (08:00)
[2016-09-11 08:22] LABS: Mis test requested (Blood) PTT
[2016-09-11 08:27] LABS: Mis test result (Blood) 33.5
[2016-09-11] MEDS: LORazepam 2 MG/ML SYRINGE IV PRN ×3 (08:49→22:14)
[2016-09-11] MEDS: CHLORHEXIDINE GLUCONATE 15 ML CUP MUCOUS MEM SCH ×2 (09:27→20:50)
[2016-09-11] MEDS: PANTOPRAZOLE 40 MG/10 ML VIAL IV SCH (09:27)
[2016-09-11] MEDS: levETIRAcetam IV 500 MG in SODIUM CHLORIDE 0.9% 100 ML IVPB SCH ×2 (09:28→20:54)
[2016-09-11 10:19] LABS: Amylase 120 U/L (30-110)
[2016-09-11 12:10] LABS: Glucose,Whole Blood 89 mg/dL (75-99)
--- NOTE | 2016-09-11 12:44 | P.PN ---
Subjective Principal diagnosis: Hypoxic respiratory failure Patient seen and examined in the ICU with nursing staff at bedside. Patient's sisters also at bedside. Patient was tremulous overnight and given Ativan. The patient is currently undergoing hemodialysis. Per the patient's girlfriend he drinks 15-20 of the 24 ounce beers a day. The patient has been an alcoholic since the age of [age] years old. He was also apparently taking Vicodin at home. The patient has been hemodynamically stable. He has been anuric. Objective - Vital Signs Vital signs: Vital Signs Temp 96.9 F L 09/11/16 08:00 Pulse 94 09/11/16 11:00 Resp 16 09/11/16 11:00 BP 138/61 09/10/16 23:00 Pulse Ox 100 09/11/16 11:00 Intake & Output 09/10/16 09/11/16 09/11/16 18:59 06:59 18:59 Intake Total 2712.030 3220.346 1044.329 Output Total 20 605 0 Balance 2692.030 2615.346 1044.329 Weight 100.8 kg 108.3 kg 108.3 kg Intake: IV 2375 2762.5 900 Calcium Gluconate 1,000 100 mg In Sodium Chloride 0.9 % 100 ml @ 100 mls/hr IVPB ONCE ONE Rx#: [id number] Dextrose 5% in Water 1, 225 000 ml @ 75 mls/hr IV . [id number] [facility] with Sodium Bicarb (1 Meq/ml) 150 ml Rx#:[id number] Piperacillin-Tazobactam 3 62.5 .375 gm In Dextrose/Water 1 50ml.bag @ 12.5 mls/hr IVPB Q12H [facility] Rx#: [id number] Sodium Chloride 0.9% 1, 0 2600 800 000 ml @ 200 mls/hr IV . Q5H [facility] Rx#:[id number] levETIRAcetam IV 500 mg 100 100 In Sodium Chloride 0.9% 100 ml @ 400 mls/hr IVPB Q12HR [facility] Rx#:[id number] Intake, IV Titration 337.030 147.846 144.329 Amount Calcium Gluconate 1,000 100 mg In Sodium Chloride 0.9 % 100 ml @ 100 mls/hr IVPB ONCE ONE Rx#: [id number] Propofol 500 mg In Empty 237.030 147.846 144.329 Bag 1 bag @ Titrate IV . Q0M [facility] Rx#:[id number] Blood Product 310 Output: Gastric Drainage 600 Urine 20 5 0 Other: Voiding Method Indwelling Catheter Indwelling Catheter Indwelling Catheter # Voids 0 ABP, PAP, CO, CI - Last Documented Arterial Blood Pressure 132/60 - Exam Gen.: Patient is sedated on ventilator. However when sedation is held the patient does wake up and follow commands Cardiovascular: Regular rate and rhythm, S1/S2, tachycardic Lungs: Diminished breath sounds at the bilateral bases Abdomen: Soft nontender nondistended positive bowel sounds Extremities: Trace edema, left lower extremity warm to touch - Labs CBC & Chem 7: 09/11/16 04:55 09/11/16 04:55 Labs: Abnormal Lab Results - Last 24 Hours (Table) 09/10/16 09/10/16 09/11/16 Range/Units 16:11 19:32 04:55 RBC 3.40 L (4.30-5.90) m/uL Hgb 11.6 L (13.0-17.5) gm/dL Hct 33.2 L (39.0-53.0) % Plt Count 77 L (150-450) k/uL Neutrophils # 9.0 H (1.3-7.7) k/uL Lymphocytes # 0.8 L (1.0-4.8) k/uL ABG pH (7.35-7.45) ABG pO2 (83-108) mmHg ABG HCO3 (21-25) mmol/L ABG O2 Saturation (94-97) % Chloride 109 H (98-107) mmol/L Carbon Dioxide 21 L (22-30) mmol/L BUN 22 H (9-20) mg/dL Creatinine 4.57 H (0.66-1.25) mg/dL Glucose (74-99) mg/dL POC Glucose (mg/dL) 102 H (75-99) mg/dL Calcium 6.2 L* (8.4-10.2) mg/dL Phosphorus (2.5-4.5) mg/dL AST (17-59) U/L ALT (21-72) U/L Creatine Kinase (55-170) U/L Total Protein (6.3-8.2) g/dL Albumin (3.5-5.0) g/dL Amylase (30-110) U/L 09/11/16 09/11/16 09/11/16 Range/Units 04:55 04:55 05:17 RBC (4.30-5.90) m/uL Hgb (13.0-17.5) gm/dL Hct (39.0-53.0) % Plt Count (150-450) k/uL Neutrophils # (1.3-7.7) k/uL Lymphocytes # (1.0-4.8) k/uL ABG pH 7.29 L (7.35-7.45) ABG pO2 140 H (83-108) mmHg ABG HCO3 19 L (21-25) mmol/L ABG O2 Saturation 99.0 H (94-97) % Chloride 110 H (98-107) mmol/L Carbon Dioxide 19 L (22-30) mmol/L BUN 27 H (9-20) mg/dL Creatinine 6.00 H* (0.66-1.25) mg/dL Glucose 114 H (74-99) mg/dL POC Glucose (mg/dL) (75-99) mg/dL Calcium 6.1 L* (8.4-10.2) mg/dL Phosphorus 6.8 H (2.5-4.5) mg/dL AST 2237 H (17-59) U/L ALT 1267 H (21-72) U/L Creatine Kinase >94317 H (55-170) U/L Total Protein 4.0 L (6.3-8.2) g/dL Albumin 2.1 L (3.5-5.0) g/dL Amylase 120 H (30-110) U/L 09/11/16 Range/Units 06:55 RBC (4.30-5.90) m/uL Hgb (13.0-17.5) gm/dL Hct (39.0-53.0) % Plt Count (150-450) k/uL Neutrophils # (1.3-7.7) k/uL Lymphocytes # (1.0-4.8) k/uL ABG pH (7.35-7.45) ABG pO2 (83-108) mmHg ABG HCO3 (21-25) mmol/L ABG O2 Saturation (94-97) % Chloride (98-107) mmol/L Carbon Dioxide (22-30) mmol/L BUN (9-20) mg/dL Creatinine (0.66-1.25) mg/dL Glucose (74-99) mg/dL POC Glucose (mg/dL) 104 H (75-99) mg/dL Calcium (8.4-10.2) mg/dL Phosphorus (2.5-4.5) mg/dL AST (17-59) U/L ALT (21-72) U/L Creatine Kinase (55-170) U/L Total Protein (6.3-8.2) g/dL Albumin (3.5-5.0) g/dL Amylase (30-110) U/L Assessment and Plan Plan: Acute hypoxic respiratory failure requiring mechanical ventilation Severe refractory Shock, resolved Delirium tremens Right lower lobe atelectasis, aspiration event Severe metabolic acidosis, anion gap with mixed respiratory acidosis Severe hyperkalemia Acute renal failure, requiring hemodialysis Rhabdomyolysis Lactic acidosis Possible seizure activity Hypomagnesemia Shock liver History of opiate and alcohol abuse Active tobacco abuse Continue full vent support, wean FiO2 as able Sports bed with chest PT Continue Mucomyst Monitor labs IV fluids at 200 mL per hour Monitor urine output Continue propofol for now Ativan PRN seizure Antibiotics: Jessica Perez Neurology recommendations, EEG Pain control Patient is currently off of pressors and is hypertensive, will order hydralazine as needed Nephrology recommendations GI and DVT prophylaxis Will start tube feeds, multivitamin, thiamine, folate Family is updated to plan of care. Prognosis is very guarded.
--- NOTE | 2016-09-11 14:17 | P.PN ---
Subjective 40-year-old being seen on rounds in the ICU with the attending this morning patient is orally intubated on vent setting tidal volume 650 a PEEP of 10 FiO2 of 50 patient is scheduled for hemodialysis morning. Patient was given Ativan during the night. No family at bedside This 40-year-old gentleman was found unresponsive at home. Apparently there was evidence of acute hypoxic respiratory failure patient needed to be intubated and transferred to the intensive care unit. Patient has been followed by neurology. Patient has evidence of severe anoxic encephalopathy. Patient did develop severe hyperkalemia. Patient has been followed by nephrology with hemodialysis per the recommendations. Additionally the patient developed evidence of acute kidney injury ATN secondary to rhabdomyolysis. Patient does reportedly have an extensive history of alcohol abuse drinking over 20 beers a day has done so since age 16. Patient's initial admission creatinine was elevated to 3.5 Objective - Vital Signs Vital signs: Vital Signs Temp 97.8 F 09/11/16 12:00 Pulse 86 09/11/16 13:30 Resp 16 09/11/16 13:30 BP 138/61 09/10/16 23:00 Pulse Ox 100 09/11/16 13:30 Intake & Output 09/10/16 09/11/16 09/11/16 18:59 06:59 18:59 Intake Total 2712.030 3220.346 1494.329 Output Total 20 605 0 Balance 2692.030 2615.346 1494.329 Weight 100.8 kg 108.3 kg 108.3 kg Intake: IV 2375 2762.5 1350 Calcium Gluconate 1,000 100 mg In Sodium Chloride 0.9 % 100 ml @ 100 mls/hr IVPB ONCE ONE Rx#: [id number] Dextrose 5% in Water 1, 225 000 ml @ 75 mls/hr IV . [id number] [facility] with Sodium Bicarb (1 Meq/ml) 150 ml Rx#:[id number] Piperacillin-Tazobactam 3 62.5 50 .375 gm In Dextrose/Water 1 50ml.bag @ 12.5 mls/hr IVPB Q12H [facility] Rx#: [id number] Sodium Chloride 0.9% 1, 0 2600 1200 000 ml @ 200 mls/hr IV . Q5H [facility] Rx#:[id number] levETIRAcetam IV 500 mg 100 100 In Sodium Chloride 0.9% 100 ml @ 400 mls/hr IVPB Q12HR [facility] Rx#:[id number] Intake, IV Titration 337.030 147.846 144.329 Amount Calcium Gluconate 1,000 100 mg In Sodium Chloride 0.9 % 100 ml @ 100 mls/hr IVPB ONCE ONE Rx#: [id number] Propofol 500 mg In Empty 237.030 147.846 144.329 Bag 1 bag @ Titrate IV . Q0M [facility] Rx#:[id number] Blood Product 310 Output: Gastric Drainage 600 Urine 20 5 0 Other: Voiding Method Indwelling Catheter Indwelling Catheter Indwelling Catheter # Voids 0 ABP, PAP, CO, CI - Last Documented Arterial Blood Pressure 134/64 - Exam Physical exam A 40-year-old male sedated on vent support lungs anterior clear diminished at the bases Heart S1-S2 audible regular Abdomen soft nontender indwelling Guzman catheter in place Extremities no edema noted to upper or lower extremities - Labs CBC & Chem 7: 09/11/16 04:55 09/11/16 04:55 Labs: Abnormal Lab Results - Last 24 Hours (Table) 09/10/16 09/10/16 09/11/16 Range/Units 16:11 19:32 04:55 RBC 3.40 L (4.30-5.90) m/uL Hgb 11.6 L (13.0-17.5) gm/dL Hct 33.2 L (39.0-53.0) % Plt Count 77 L (150-450) k/uL Neutrophils # 9.0 H (1.3-7.7) k/uL Lymphocytes # 0.8 L (1.0-4.8) k/uL ABG pH (7.35-7.45) ABG pO2 (83-108) mmHg ABG HCO3 (21-25) mmol/L ABG O2 Saturation (94-97) % Chloride 109 H (98-107) mmol/L Carbon Dioxide 21 L (22-30) mmol/L BUN 22 H (9-20) mg/dL Creatinine 4.57 H (0.66-1.25) mg/dL Glucose (74-99) mg/dL POC Glucose (mg/dL) 102 H (75-99) mg/dL Calcium 6.2 L* (8.4-10.2) mg/dL Phosphorus (2.5-4.5) mg/dL AST (17-59) U/L ALT (21-72) U/L Creatine Kinase (55-170) U/L Total Protein (6.3-8.2) g/dL Albumin (3.5-5.0) g/dL Amylase (30-110) U/L 09/11/16 09/11/16 09/11/16 Range/Units 04:55 04:55 05:17 RBC (4.30-5.90) m/uL Hgb (13.0-17.5) gm/dL Hct (39.0-53.0) % Plt Count (150-450) k/uL Neutrophils # (1.3-7.7) k/uL Lymphocytes # (1.0-4.8) k/uL ABG pH 7.29 L (7.35-7.45) ABG pO2 140 H (83-108) mmHg ABG HCO3 19 L (21-25) mmol/L ABG O2 Saturation 99.0 H (94-97) % Chloride 110 H (98-107) mmol/L Carbon Dioxide 19 L (22-30) mmol/L BUN 27 H (9-20) mg/dL Creatinine 6.00 H* (0.66-1.25) mg/dL Glucose 114 H (74-99) mg/dL POC Glucose (mg/dL) (75-99) mg/dL Calcium 6.1 L* (8.4-10.2) mg/dL Phosphorus 6.8 H (2.5-4.5) mg/dL AST 2237 H (17-59) U/L ALT 1267 H (21-72) U/L Creatine Kinase >44408 H (55-170) U/L Total Protein 4.0 L (6.3-8.2) g/dL Albumin 2.1 L (3.5-5.0) g/dL Amylase 120 H (30-110) U/L 09/11/16 Range/Units 06:55 RBC (4.30-5.90) m/uL Hgb (13.0-17.5) gm/dL Hct (39.0-53.0) % Plt Count (150-450) k/uL Neutrophils # (1.3-7.7) k/uL Lymphocytes # (1.0-4.8) k/uL ABG pH (7.35-7.45) ABG pO2 (83-108) mmHg ABG HCO3 (21-25) mmol/L ABG O2 Saturation (94-97) % Chloride (98-107) mmol/L Carbon Dioxide (22-30) mmol/L BUN (9-20) mg/dL Creatinine (0.66-1.25) mg/dL Glucose (74-99) mg/dL POC Glucose (mg/dL) 104 H (75-99) mg/dL Calcium (8.4-10.2) mg/dL Phosphorus (2.5-4.5) mg/dL AST (17-59) U/L ALT (21-72) U/L Creatine Kinase (55-170) U/L Total Protein (6.3-8.2) g/dL Albumin (3.5-5.0) g/dL Amylase (30-110) U/L Assessment and Plan Plan: Impression Present on admission acute hypoxic respiratory failure multifactorial Present on admission severely hyperkalemic potassium 8.7 Present on admission urine drug screen positive for opiates Polysubstance of drug abuse Suspect anoxic brain injury Present on admission acute kidney injury anion gap metabolic acidosis due to acute kidney injury with lactic acidosis Active tobacco abuse Possible seizure activity Right lower lobe atelectasis with an aspiration event Severe refractory shock resolved Present on admission Rhabdomyolysis Lactic acidosis History of a depressive disorder nonspecified on Lexapro at home Present on admission Hypomagnesemia with elevated potassium hyperkalemic Present on admission acute alcohol intoxication Plan Continue with recommendations from the math tutor for ICU management Pulmonary for vent management Continue recommendations by nephrology defer to Monitor electrolytes addressed per protocol on the ICU DVT and GI prophylaxis Continue IV fluid at 200 and hour Continue full vent support wean FiO2 as tolerated per pulmonology's recommendations The above dictated assessment and findings were discussed with dr daryl Dover and the plan of care have been dictated as directed. Pavithra Hameed nurse practitioner acting as a scribe for dr brito
--- NOTE | 2016-09-11 14:19 | P.PN ---
Subjective This is a 40-year-old male seen in consultation because of acute kidney injury secondary to rhabdomyolysis and has been dialyzed yesterday and was dialyzed just now and completed without any problems. He remains intubated on 40% FiO2, not on any inotropes. Attempted withdrawal sedation resulted in some instability with the withdrawal symptoms therefore any further attempt is now on hold. He remains fairly stable during dialysis this morning with no ultrafiltration taken off and just pure dialysis. His history is as follows He came in with the syncope was intubated. He was severely hyperkalemic with potassium of 8.7 and a bicarb of 18 with positive drug screen for opiates serum alcohol level was 82 CPK was 35638. He remained anuric as of the last 24 hours. Objective - Vital Signs Vital signs: Vital Signs Temp 97.8 F 09/11/16 12:00 Pulse 86 09/11/16 13:30 Resp 16 09/11/16 13:30 BP 138/61 09/10/16 23:00 Pulse Ox 100 09/11/16 13:30 Intake & Output 09/10/16 09/11/16 09/11/16 18:59 06:59 18:59 Intake Total 2712.030 3220.346 1494.329 Output Total 20 605 0 Balance 2692.030 2615.346 1494.329 Weight 100.8 kg 108.3 kg 108.3 kg Intake: IV 2375 2762.5 1350 Calcium Gluconate 1,000 100 mg In Sodium Chloride 0.9 % 100 ml @ 100 mls/hr IVPB ONCE ONE Rx#: [id number] Dextrose 5% in Water 1, 225 000 ml @ 75 mls/hr IV . [id number] [facility] with Sodium Bicarb (1 Meq/ml) 150 ml Rx#:[id number] Piperacillin-Tazobactam 3 62.5 50 .375 gm In Dextrose/Water 1 50ml.bag @ 12.5 mls/hr IVPB Q12H [facility] Rx#: [id number] Sodium Chloride 0.9% 1, 0 2600 1200 000 ml @ 200 mls/hr IV . Q5H [facility] Rx#:[id number] levETIRAcetam IV 500 mg 100 100 In Sodium Chloride 0.9% 100 ml @ 400 mls/hr IVPB Q12HR [facility] Rx#:[id number] Intake, IV Titration 337.030 147.846 144.329 Amount Calcium Gluconate 1,000 100 mg In Sodium Chloride 0.9 % 100 ml @ 100 mls/hr IVPB ONCE ONE Rx#: [id number] Propofol 500 mg In Empty 237.030 147.846 144.329 Bag 1 bag @ Titrate IV . Q0M [facility] Rx#:[id number] Blood Product 310 Output: Gastric Drainage 600 Urine 20 5 0 Other: Voiding Method Indwelling Catheter Indwelling Catheter Indwelling Catheter # Voids 0 ABP, PAP, CO, CI - Last Documented On exam today obtunded on the Premarin. He is on Arterial Blood Pressure 134/64 He is obtunded on the prevention. HEENT exam no JVP neck is supple no facial asymmetry Pupils are equal and reactive Lungs are clear to auscultation percussion fair air entry bilaterally Heart sounds are unremarkable for any murmur rub gallop. Abdomen is soft nondistended. Bowel sounds are diminished. Extremity exam reveals mild edema. Neurologically obtunded. - Labs CBC & Chem 7: 09/11/16 04:55 09/11/16 04:55 Labs: Abnormal Lab Results - Last 24 Hours (Table) 09/10/16 09/10/16 09/11/16 Range/Units 16:11 19:32 04:55 RBC 3.40 L (4.30-5.90) m/uL Hgb 11.6 L (13.0-17.5) gm/dL Hct 33.2 L (39.0-53.0) % Plt Count 77 L (150-450) k/uL Neutrophils # 9.0 H (1.3-7.7) k/uL Lymphocytes # 0.8 L (1.0-4.8) k/uL ABG pH (7.35-7.45) ABG pO2 (83-108) mmHg ABG HCO3 (21-25) mmol/L ABG O2 Saturation (94-97) % Chloride 109 H (98-107) mmol/L Carbon Dioxide 21 L (22-30) mmol/L BUN 22 H (9-20) mg/dL Creatinine 4.57 H (0.66-1.25) mg/dL Glucose (74-99) mg/dL POC Glucose (mg/dL) 102 H (75-99) mg/dL Calcium 6.2 L* (8.4-10.2) mg/dL Phosphorus (2.5-4.5) mg/dL AST (17-59) U/L ALT (21-72) U/L Creatine Kinase (55-170) U/L Total Protein (6.3-8.2) g/dL Albumin (3.5-5.0) g/dL Amylase (30-110) U/L 09/11/16 09/11/16 09/11/16 Range/Units 04:55 04:55 05:17 RBC (4.30-5.90) m/uL Hgb (13.0-17.5) gm/dL Hct (39.0-53.0) % Plt Count (150-450) k/uL Neutrophils # (1.3-7.7) k/uL Lymphocytes # (1.0-4.8) k/uL ABG pH 7.29 L (7.35-7.45) ABG pO2 140 H (83-108) mmHg ABG HCO3 19 L (21-25) mmol/L ABG O2 Saturation 99.0 H (94-97) % Chloride 110 H (98-107) mmol/L Carbon Dioxide 19 L (22-30) mmol/L BUN 27 H (9-20) mg/dL Creatinine 6.00 H* (0.66-1.25) mg/dL Glucose 114 H (74-99) mg/dL POC Glucose (mg/dL) (75-99) mg/dL Calcium 6.1 L* (8.4-10.2) mg/dL Phosphorus 6.8 H (2.5-4.5) mg/dL AST 2237 H (17-59) U/L ALT 1267 H (21-72) U/L Creatine Kinase >08065 H (55-170) U/L Total Protein 4.0 L (6.3-8.2) g/dL Albumin 2.1 L (3.5-5.0) g/dL Amylase 120 H (30-110) U/L 09/11/16 Range/Units 06:55 RBC (4.30-5.90) m/uL Hgb (13.0-17.5) gm/dL Hct (39.0-53.0) % Plt Count (150-450) k/uL Neutrophils # (1.3-7.7) k/uL Lymphocytes # (1.0-4.8) k/uL ABG pH (7.35-7.45) ABG pO2 (83-108) mmHg ABG HCO3 (21-25) mmol/L ABG O2 Saturation (94-97) % Chloride (98-107) mmol/L Carbon Dioxide (22-30) mmol/L BUN (9-20) mg/dL Creatinine (0.66-1.25) mg/dL Glucose (74-99) mg/dL POC Glucose (mg/dL) 104 H (75-99) mg/dL Calcium (8.4-10.2) mg/dL Phosphorus (2.5-4.5) mg/dL AST (17-59) U/L ALT (21-72) U/L Creatine Kinase (55-170) U/L Total Protein (6.3-8.2) g/dL Albumin (3.5-5.0) g/dL Amylase (30-110) U/L Assessment and Plan Plan: Impression 1. ATN from rhabdomyolysis and on dialysis stable. 2. Rhabdomyolysis with CPK is still greater than 32,000. 3. Non-gap acidosis with bicarb improved to 19 before today's dialysis.blood gases show pH of 7.29 with a pCO2 of 40. Therefore a combination of primary metabolic acidosis and an adequate respiratory response on the vent with pCO2 slightly higher than expected 4 Hyperkalemia resolved potassium is 4.3 5. When dependent respiratory failure on 50% FiO2. Unable to wean currently because of possible withdrawal symptoms from alcohol exam. 6. Hypocalcemia with calcium of 6.1, albumin off 2.1 and therefore corrected calcium is 7.9 about nearly no and hyperphosphatemia secondary to rhabdomyolysis. Recommendation. 1. No changes in medications. Reduce IV fluids to 75 mL of normal saline and hour as he is an uric and might go into congestive heart failure. We will watch his calcium and phosphorus and if necessary adjust medications and replace calcium if necessary. He'll be next dialyzed on 09/13/2016 unless there is a emergent reason for dialysis tomorrow. Monitor calcium phosphorus potassium and CPK
--- NOTE | 2016-09-11 17:43 | P.GSCN ---
History of Present Illness Consult date: 09/10/16 Reason for Consult: Pancreatitis, elevated liver enzymes Requesting physician: Alexandro Sanabria History of present illness: Patient is a 40-year-old male with past medical history significant for EtOH abuse with reported consumption of 15-4 ounce beers daily. Patient admitted to the hospital after he was found unresponsive in his recliner at home. Toxicology positive for opiates. Surgical consult requested for pancreatitis and elevated LFTs. Patient is currently evaluated in the intensive care unit where he is ventilated and sedated. Amylase 120 from 271 on admission. Lipase 89 from 844 on admission. Liver enzymes improving with AST 2237 from 4083 on admission, ALT 1267 from 2961 on admission. Normal bilirubin. Patient afebrile. Past Medical History Past Medical History: No Reported History Additional Past Medical History / Comment(s): alcoholic History of Any Multi-Drug Resistant Organisms: None Reported Additional Past Surgical History / Comment(s): Rhinoplasty (2003) Past Anesthesia/Blood Transfusion Reactions: No Reported Reaction Past Psychological History: Depression Smoking Status: Current every day smoker Past Alcohol Use History: Daily Additional Past Alcohol Use History / Comment(s): 15-20 24oz beers daily Past Drug Use History: Cocaine, Opiates, Prescription Drug Abuse - Past Family History Father Family Medical History: Diabetes Mellitus Mother Additional Family Medical History / Comment(s): ETOH use Medications and Allergies Home Medications Medication Instructions Recorded Confirmed Type Escitalopram Oxalate [Lexapro] 10 mg PO DAILY 09/09/16 09/09/16 History FLUoxetine HCL [PROzac] 20 mg PO DAILY 09/09/16 09/09/16 History Allergies Allergy/AdvReac Type Severity Reaction Status Date / Time seasonal Allergy Rash/Hives Uncoded 09/09/16 15:27 Surgical - Exam Vital Signs Temp Pulse Resp Pulse Ox 97.8 F 110 H 18 100 09/09/16 12:45 09/09/16 12:45 09/09/16 12:45 09/09/16 12:45 GENERAL: Pt sedated on ventilatory support. Appears in no acute distress. LUNGS: Breath sounds diminished to auscultation bilaterally. No wheezes, rales , or rhonchi. HEART: Heart S1, S2, no S3 or S4. Regular rate and rhythm. No murmurs, rubs or gallops. ABDOMEN: Soft, nontender, nondistended, normoactive bowel sounds. Results - Labs 09/11/16 04:55 09/11/16 04:55 Abnormal Lab Results - Last 24 Hours (Table) 09/10/16 09/10/16 09/11/16 Range/Units 16:11 19:32 04:55 RBC 3.40 L (4.30-5.90) m/uL Hgb 11.6 L (13.0-17.5) gm/dL Hct 33.2 L (39.0-53.0) % Plt Count 77 L (150-450) k/uL Neutrophils # 9.0 H (1.3-7.7) k/uL Lymphocytes # 0.8 L (1.0-4.8) k/uL ABG pH (7.35-7.45) ABG pO2 (83-108) mmHg ABG HCO3 (21-25) mmol/L ABG O2 Saturation (94-97) % Chloride 109 H (98-107) mmol/L Carbon Dioxide 21 L (22-30) mmol/L BUN 22 H (9-20) mg/dL Creatinine 4.57 H (0.66-1.25) mg/dL Glucose (74-99) mg/dL POC Glucose (mg/dL) 102 H (75-99) mg/dL Calcium 6.2 L* (8.4-10.2) mg/dL Phosphorus (2.5-4.5) mg/dL AST (17-59) U/L ALT (21-72) U/L Creatine Kinase (55-170) U/L Total Protein (6.3-8.2) g/dL Albumin (3.5-5.0) g/dL Amylase (30-110) U/L 09/11/16 09/11/16 09/11/16 Range/Units 04:55 04:55 05:17 RBC (4.30-5.90) m/uL Hgb (13.0-17.5) gm/dL Hct (39.0-53.0) % Plt Count (150-450) k/uL Neutrophils # (1.3-7.7) k/uL Lymphocytes # (1.0-4.8) k/uL ABG pH 7.29 L (7.35-7.45) ABG pO2 140 H (83-108) mmHg ABG HCO3 19 L (21-25) mmol/L ABG O2 Saturation 99.0 H (94-97) % Chloride 110 H (98-107) mmol/L Carbon Dioxide 19 L (22-30) mmol/L BUN 27 H (9-20) mg/dL Creatinine 6.00 H* (0.66-1.25) mg/dL Glucose 114 H (74-99) mg/dL POC Glucose (mg/dL) (75-99) mg/dL Calcium 6.1 L* (8.4-10.2) mg/dL Phosphorus 6.8 H (2.5-4.5) mg/dL AST 2237 H (17-59) U/L ALT 1267 H (21-72) U/L Creatine Kinase >96504 H (55-170) U/L Total Protein 4.0 L (6.3-8.2) g/dL Albumin 2.1 L (3.5-5.0) g/dL Amylase 120 H (30-110) U/L 09/11/16 Range/Units 06:55 RBC (4.30-5.90) m/uL Hgb (13.0-17.5) gm/dL Hct (39.0-53.0) % Plt Count (150-450) k/uL Neutrophils # (1.3-7.7) k/uL Lymphocytes # (1.0-4.8) k/uL ABG pH (7.35-7.45) ABG pO2 (83-108) mmHg ABG HCO3 (21-25) mmol/L ABG O2 Saturation (94-97) % Chloride (98-107) mmol/L Carbon Dioxide (22-30) mmol/L BUN (9-20) mg/dL Creatinine (0.66-1.25) mg/dL Glucose (74-99) mg/dL POC Glucose (mg/dL) 104 H (75-99) mg/dL Calcium (8.4-10.2) mg/dL Phosphorus (2.5-4.5) mg/dL AST (17-59) U/L ALT (21-72) U/L Creatine Kinase (55-170) U/L Total Protein (6.3-8.2) g/dL Albumin (3.5-5.0) g/dL Amylase (30-110) U/L Diabetes panel 09/10/16 09/11/16 Range/Units 16:11 04:55 Sodium 140 141 (137-145) mmol/L Potassium 4.4 4.3 (3.5-5.1) mmol/L Chloride 109 H 110 H (98-107) mmol/L Carbon Dioxide 21 L 19 L (22-30) mmol/L BUN 22 H 27 H (9-20) mg/dL Creatinine 4.57 H 6.00 H* (0.66-1.25) mg/dL Glucose 92 114 H (74-99) mg/dL Calcium 6.2 L* 6.1 L* (8.4-10.2) mg/dL AST 2237 H (17-59) U/L ALT 1267 H (21-72) U/L Alkaline Phosphatase 57 (38-126) U/L Total Protein 4.0 L (6.3-8.2) g/dL Albumin 2.1 L (3.5-5.0) g/dL Calcium panel 09/10/16 09/11/16 Range/Units 16:11 04:55 Calcium 6.2 L* 6.1 L* (8.4-10.2) mg/dL Phosphorus 6.8 H (2.5-4.5) mg/dL Albumin 2.1 L (3.5-5.0) g/dL Pituitary panel 09/10/16 09/11/16 Range/Units 16:11 04:55 Sodium 140 141 (137-145) mmol/L Potassium 4.4 4.3 (3.5-5.1) mmol/L Chloride 109 H 110 H (98-107) mmol/L Carbon Dioxide 21 L 19 L (22-30) mmol/L BUN 22 H 27 H (9-20) mg/dL Creatinine 4.57 H 6.00 H* (0.66-1.25) mg/dL Glucose 92 114 H (74-99) mg/dL Calcium 6.2 L* 6.1 L* (8.4-10.2) mg/dL Adrenal panel 09/10/16 09/11/16 Range/Units 16:11 04:55 Sodium 140 141 (137-145) mmol/L Potassium 4.4 4.3 (3.5-5.1) mmol/L Chloride 109 H 110 H (98-107) mmol/L Carbon Dioxide 21 L 19 L (22-30) mmol/L BUN 22 H 27 H (9-20) mg/dL Creatinine 4.57 H 6.00 H* (0.66-1.25) mg/dL Glucose 92 114 H (74-99) mg/dL Calcium 6.2 L* 6.1 L* (8.4-10.2) mg/dL Total Bilirubin 0.7 (0.2-1.3) mg/dL AST 2237 H (17-59) U/L ALT 1267 H (21-72) U/L Alkaline Phosphatase 57 (38-126) U/L Total Protein 4.0 L (6.3-8.2) g/dL Albumin 2.1 L (3.5-5.0) g/dL Assessment and Plan Plan: Impression: 1. Acute pancreatitis, present on admission, suspect secondary to EtOH abuse. 2. Increased liver enzymes suspect secondary to hypoperfusion, improving. Plan: Continue to monitor patient. Continue to monitor liver enzymes. Continue medical management. Patient is not a surgical candidate at this time. The above impression and plan have been discussed and directed by Dr. Figueroa. Solomon MANN acting as scribe for Dr. Figueroa.
[2016-09-11 20:01] LABS: Glucose,Whole Blood 83 mg/dL (75-99)
--- NOTE | 2016-09-11 21:26 | P.PN ---
Subjective This patient is a 40-year-old right-handed white male who was admitted just after being found unresponsive at his home. Patient was found to have evidence of acute hypoxic respiratory failure and was intubated and transferred to the intensive care unit yesterday. He was seen for neurology consultation yesterday and had evidence of severe anoxic encephalopathy. He remains on a Diprivan drip at this time. He underwent a venous Doppler ultrasound today which was negative for any evidence of DVT in the lower extremities. He did develop severe hyperkalemia and did require hemodialysis yesterday. He is seen by nephrology and will be scheduled for hemodialysis tomorrow. He has evidence of ATN secondary to rhabdomyolysis. His initial admission serum creatinine was elevated at 3.5. Patient remains on Diprivan drip. When he is weaned off of the Diprivan he is very agitated and restless. He was started on Keppra for possible seizure activity. We will be obtaining an EEG tomorrow for further evaluation. Patient likely has some degree of anoxic brain injury secondary to his acute respiratory failure. We will continue close neurological follow-up of this patient in the intensive care unit. According to the ICU nurse he has a extensive history of alcohol abuse drinking over 20 beers a day. Patient's girlfriend was seen today at bedside. She does collaborate his history of extensive alcohol abuse history in the past. 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 According to the girlfriend he had to go for breathalyzer test before owing to work. He also has had several episodes in which she is drunk at work. All this information was obtained from his girlfriend who was at his bedside today on rounds. We did update her on his overall prognosis at this time. According to the ICU nurse he was started on Ativan as a CIWA protocol. He did complete a routine EEG late this evening which was reviewed. EEG reveals fairly good brain activity with a background of 6-7 hertz. No epileptiform discharges were seen. Attempt to wean him off of Diprivan today was short-lived as he became agitated. His Keppra level did come back therapeutic at 14.2 today. We will continue him on his current dose of Keppra. Case was discussed at length at bedside today in the ICU with the patient's girlfriend. All of her questions were answered. She is aware of his guarded condition. His overall prognosis at this time remains very guarded. Objective - Vital Signs Vital signs: Vital Signs Temp 97.8 F 09/11/16 16:30 Pulse 86 09/11/16 20:05 Resp 16 09/11/16 18:00 BP 138/61 09/10/16 23:00 Pulse Ox 100 09/11/16 18:00 Intake & Output 09/11/16 09/11/16 09/12/16 06:59 18:59 06:59 Intake Total 3220.346 2157.865 Output Total 605 25 Balance 2615.346 2132.865 Weight 108.3 kg 108.3 kg Intake: IV 2762.5 1850 0.9 @ 75 300 Piperacillin-Tazobactam 3 62.5 50 .375 gm In Dextrose/Water 1 50ml.bag @ 12.5 mls/hr IVPB Q12H [facility] Rx#: [id number] Sodium Chloride 0.9% 1, 2600 1400 000 ml @ 200 mls/hr IV . Q5H [facility] Rx#:[id number] levETIRAcetam IV 500 mg 100 100 In Sodium Chloride 0.9% 100 ml @ 400 mls/hr IVPB Q12HR [facility] Rx#:[id number] Intake, IV Titration 147.846 287.865 Amount Propofol 500 mg In Empty 147.846 287.865 Bag 1 bag @ Titrate IV . Q0M [facility] Rx#:[id number] Tube Feeding 20 Blood Product 310 Output: Gastric Drainage 600 Urine 5 25 Other: Voiding Method Indwelling Catheter Indwelling Catheter # Voids 0 0 ABP, PAP, CO, CI - Last Documented Arterial Blood Pressure 140/63 - Exam Physical examination: PHYSICAL EXAMINATION: Patient is resting comfortably in bed. Patient currently intubated on the ventilator on Diprivan drip. VITAL SIGNS: Blood pressure is [140/63]. Heart rate is [90]. Respiration is [16] . Temperature is [97.8]. HEENT: Head is atraumatic, neck is supple, there were no carotid bruits. CHEST: Lungs are clear to auscultation and percussion. CARDIAC: S1, S2 normal rate and rhythm. There is no murmur. ABDOMEN: Soft and nontender. Bowel sounds are present. EXTREMITIES: There is no pedal edema. Peripheral pulses are present. Neurological examination: Patient intubated on the ventilator on Diprivan drip. Neurological examination is limited at this time. - Labs CBC & Chem 7: 09/11/16 04:55 09/11/16 04:55 Labs: Abnormal Lab Results - Last 24 Hours (Table) 09/11/16 09/11/16 09/11/16 Range/Units 04:55 04:55 04:55 RBC 3.40 L (4.30-5.90) m/uL Hgb 11.6 L (13.0-17.5) gm/dL Hct 33.2 L (39.0-53.0) % Plt Count 77 L (150-450) k/uL Neutrophils # 9.0 H (1.3-7.7) k/uL Lymphocytes # 0.8 L (1.0-4.8) k/uL ABG pH (7.35-7.45) ABG pO2 (83-108) mmHg ABG HCO3 (21-25) mmol/L ABG O2 Saturation (94-97) % Chloride 110 H (98-107) mmol/L Carbon Dioxide 19 L (22-30) mmol/L BUN 27 H (9-20) mg/dL Creatinine 6.00 H* (0.66-1.25) mg/dL Glucose 114 H (74-99) mg/dL POC Glucose (mg/dL) (75-99) mg/dL Calcium 6.1 L* (8.4-10.2) mg/dL Phosphorus 6.8 H (2.5-4.5) mg/dL AST 2237 H (17-59) U/L ALT 1267 H (21-72) U/L Creatine Kinase >75140 H (55-170) U/L Total Protein 4.0 L (6.3-8.2) g/dL Albumin 2.1 L (3.5-5.0) g/dL Amylase 120 H (30-110) U/L 09/11/16 09/11/16 Range/Units 05:17 06:55 RBC (4.30-5.90) m/uL Hgb (13.0-17.5) gm/dL Hct (39.0-53.0) % Plt Count (150-450) k/uL Neutrophils # (1.3-7.7) k/uL Lymphocytes # (1.0-4.8) k/uL ABG pH 7.29 L (7.35-7.45) ABG pO2 140 H (83-108) mmHg ABG HCO3 19 L (21-25) mmol/L ABG O2 Saturation 99.0 H (94-97) % Chloride (98-107) mmol/L Carbon Dioxide (22-30) mmol/L BUN (9-20) mg/dL Creatinine (0.66-1.25) mg/dL Glucose (74-99) mg/dL POC Glucose (mg/dL) 104 H (75-99) mg/dL Calcium (8.4-10.2) mg/dL Phosphorus (2.5-4.5) mg/dL AST (17-59) U/L ALT (21-72) U/L Creatine Kinase (55-170) U/L Total Protein (6.3-8.2) g/dL Albumin (3.5-5.0) g/dL Amylase (30-110) U/L Assessment and Plan (1) Anoxic encephalopathy Status: Acute Code(s): G93.1 - ANOXIC BRAIN DAMAGE, NOT ELSEWHERE CLASSIFIED (2) Acute hyperkalemia Status: Acute Code(s): E87.5 - HYPERKALEMIA (3) Acute respiratory failure Status: Acute Code(s): J96.00 - ACUTE RESPIRATORY FAILURE, UNSP W HYPOXIA OR HYPERCAPNIA (4) Alcoholic hepatitis Status: Acute Code(s): K70.10 - ALCOHOLIC HEPATITIS WITHOUT ASCITES (5) Sepsis Status: Acute Code(s): A41.9 - SEPSIS, UNSPECIFIED ORGANISM Plan: This patient is a 40-year-old male who was found unresponsive at his home by his physical testing supervisor. The patient was late for work for over 3 hours and his physical testing supervisor and went to check on him. He found him sitting in a chair unresponsive. It is unclear how long he may have been in this position but it is estimated to be over 2 hours. Patient was having shallow breathing. When EMS arrived they had to intubate him. He was transferred to the emergency room where he was further evaluated. He underwent a computed tomography scan of the brain results which are noted above. CAT scan was negative for any acute changes. He was intubated due to respiratory failure and aspiration pneumonia and transferred to the intensive care unit. Initially in the ICU he had some muscle twitching. This is felt to be secondary to severe anoxic encephalopathy. He has been started on levetiracetam and we will monitor his response closely. This patient has a severe anoxic encephalopathy secondary to respiratory failure. Etiology of his respiratory failure is undetermined at this time. He does have evidence of aspiration pneumonia as well on chest x- ray. We reviewed the computed tomography scan of the brain which is negative for any acute changes. We will obtain routine EEG for further assessment. He should be maintained on levetiracetam at this time. We will check a level and adjust his dose as needed. His Keppra level is still pending this morning. He does have history of underlying alcohol abuse and may benefit from CIWA protocol as he does show signs of early DTs. Apparently the patient drinks heavily at home on a regular basis. Case was discussed today at bedside in the ICU with the patient's girlfriend. She collaborates his history of severe alcohol abuse in the past. He has been admitted to drug rehabilitation at [place] several times in the past. He has reported to work drunk in the past according to the girlfriend. The patient is to continue on Keppra at this time. His Keppra blood level did come back therapeutic at 14.2. Apparently he is unable to remain off of the propofol due to increased tremors. This likely is due to DTs. We will continue to follow with pulmonary medicine with slow tapering of his medications. He did undergo routine EEG today which was reviewed. EEG actually is good and reveals a background of 6-7 hertz. No epileptiform discharges were seen. Case was discussed today at length with the patient's girlfriend at bedside in the ICU. She is been updated on his overall neurological status and guarded condition. This patient's overall prognosis at this time remains very guarded. We will continue close neurological follow-up of this patient in the intensive care unit.
[2016-09-12 00:31] LABS: Glucose,Whole Blood 101 mg/dL (75-99)
[2016-09-12] MEDS: PROPOFOL 500 MG in EMPTY BAG 1 BAG IV SCH ×7 (00:31→23:28)
[2016-09-12] MEDS: SODIUM CHLORIDE 0.9% 1,000 ML IV SCH ×6 (00:32→23:06)
[2016-09-12] MEDS: HEPARIN SODIUM,PORCINE 5,000 UNIT/ML 1 ML VIAL SQ SCH ×4 (00:33→23:05)
[2016-09-12] MEDS: PIPERACILLIN-TAZOBACTAM 3.375 GM in DEXTROSE/WATER 1 50ML.BAG IVPB SCH ×3 (00:43→23:06)
[2016-09-12] MEDS ORDERED: PROPOFOL 50 ML IV ONE ×2 (01:57→06:23)
[2016-09-12] MEDS: ALBUTEROL NEBULIZED 2.5 MG/3 ML INHALATION SCH ×5 (03:21→19:58)
[2016-09-12 05:11] LABS: Basophils % (A) 0 %; CH 32.4; CHCM 33.8; Eosinophils # (A) 0.2 k/uL (0-0.7); Eosinophils % (A) 2 %; HCT 31.3 % (39.0-53.0); HDW 2.59; HGB 10.6 gm/dL (13.0-17.5); Luc # (Auto) 0.14; Luc % (Auto) 1; Lymphocytes # (A) 0.6 k/uL (1.0-4.8); Lymphocytes % (A) 6 %; MCH 32.7 pg (25.0-35.0); MCHC 33.9 g/dL (31.0-37.0); MCV 96.4 fL (80.0-100.0); Mean Platelet Volume 7.7; Monocytes # (A) 0.5 k/uL (0-1.0); Monocytes % (A) 4 %; Neutrophils # (A) 9.6 k/uL (1.3-7.7); Neutrophils % (A) 87 %; RBC 3.24 m/uL (4.30-5.90); WBC (Perox) 11.61
[2016-09-12 05:18] LABS: ABG Base Excess -6.2 mmol/L; ABG HCO3 19 mmol/L (21-25); ABG PCO2 39 mmHg (35-45); ABG PO2 115 mmHg (83-108); ABG TCO2 20 mmol/L (19-24)
[2016-09-12 05:31] LABS: Magnesium 1.9 mg/dL (1.6-2.3); Phosphorous 6.6 mg/dL (2.5-4.5); Potassium 4.2 mmol/L (3.5-5.1); Total Bilirubin 1.4 mg/dL (0.2-1.3); Total Protein 4.4 g/dL (6.3-8.2)
[2016-09-12 05:38] LABS: INR 0.9 (<1.1); Partial Thromboplastin Time 26.6 sec (22.0-30.0); Prothrombin Time 9.6 sec (9.0-12.0)
[2016-09-12 05:43] LABS: Calcium 6.5 mg/dL (8.4-10.2)
--- NOTE | 2016-09-12 07:59 | XR ---
EXAMINATION TYPE: XR chest 1V portable DATE OF EXAM: 09/12/2016 7:01 AM CLINICAL HISTORY: Difficulty breathing progress study. TECHNIQUE: Single AP portable upright view of the chest is obtained. COMPARISON: Chest x-ray from one day earlier FINDINGS: Endotracheal tube and orogastric tube are stable in appearance. There is persistent right basilar airspace opacity silhouetting fissure. No silhouetting of right hemidiaphragm or heart border is noted. Left lung remains clear. No pleural effusion or pneumothorax is seen bilaterally. Chronic silhouette size appears within normal limits. Osseous structures are intact. IMPRESSION: Overall stable findings, persistent right basilar infiltrate, no new infiltrate is seen .
--- NOTE | 2016-09-12 08:13 | EEG ---
DATE OF SERVICE: 09/11/2016 INDICATIONS FOR EXAMINATION: This patient is a 40 -year-old male being evaluated for acute episode of unresponsiveness and myoclonus. Patient with anoxic encephalopathy secondary to unresponsive state. AGE: 40Y EEG FINDINGS: A routine 21 channel awake digital EEG recording was accomplished utilizing the 10-20 international system with bipolar and referential montages. The background activity in the most alert resting state consists of low to medium amplitude fairly well developed and well sustained 6 Hz activity over the posterior head regions. This posterior rhythm attenuates to eye opening. There is a small amount of low amplitude 18-20 Hz beta activity seen maximally over the anterior head regions. Muscle and movement artifacts were observed on several occasions during the tracing. Hyperventilation was not performed. Photic stimulation at flash frequencies of 2-30 Hz produced a minimal occipital driving response. No epileptiform discharges were seen. IMPRESSION: This EEG is mildly abnormal in a diffuse fashion due to slight slowing of the EEG background. The EEG failed to reveal any focal, lateralized or epileptiform abnormalities. Clinical correlation is recommended.
[2016-09-12] MEDS: CHLORHEXIDINE GLUCONATE 15 ML CUP MUCOUS MEM SCH ×2 (08:28→20:17)
[2016-09-12] MEDS: PANTOPRAZOLE 40 MG/10 ML VIAL IV SCH (08:28)
[2016-09-12] MEDS: levETIRAcetam IV 500 MG in SODIUM CHLORIDE 0.9% 100 ML IVPB SCH ×2 (08:28→20:19)
[2016-09-12] MEDS: ACETYLCYSTEINE 800 MG/4 ML VIAL INHALATION SCH ×3 (09:04→19:58)
--- NOTE | 2016-09-12 10:15 | P.PN ---
Subjective This is a 40-year-old male seen in consultation because of acute kidney injury secondary to rhabdomyolysis and has been dialyzed day before yesterday and was dialyzed yesterday completed without any problems. Since yesterday there has been no change. He is stable with vital signs, not requiring any inotropes. His CPK is trending down into the 22,111 from greater than 32,000. He remains sedated and had withdrawal symptoms yesterday upon attempt to wean. He remains intubated on 50% FiO2, not on any inotropes. His history is as follows He came in with the syncope was intubated. He was severely hyperkalemic with potassium of 8.7 and a bicarb of 18 with positive drug screen for opiates serum alcohol level was 82 CPK was 1947[address]. He remained anuric as of the last 24 hours. Objective - Vital Signs Vital signs: Vital Signs Temp 100.6 F H 09/12/16 08:00 Pulse 98 09/12/16 09:30 Resp 16 09/12/16 09:30 BP 138/61 09/10/16 23:00 Pulse Ox 99 09/12/16 09:30 Intake & Output 09/11/16 09/12/16 09/12/16 18:59 06:59 18:59 Intake Total 2157.865 1600.0 535 Output Total 25 7 0 Balance 2132.865 1593.0 535 Weight 108.3 kg 111.6 kg 111.6 kg Intake: IV 1850 1050.0 325 0.9 @ 75 300 900 225 Piperacillin-Tazobactam 3 50 50.0 .375 gm In Dextrose/Water 1 50ml.bag @ 12.5 mls/hr IVPB Q12H [facility] Rx#: [id number] Sodium Chloride 0.9% 1, 1400 000 ml @ 75 mls/hr IV . [id number] [facility] Rx#:[id number] levETIRAcetam IV 500 mg 100 100 100 In Sodium Chloride 0.9% 100 ml @ 400 mls/hr IVPB Q12HR [facility] Rx#:[id number] Intake, IV Titration 287.865 150 Amount Propofol 500 mg In Empty 287.865 150 Bag 1 bag @ Titrate IV . Q0M [facility] Rx#:[id number] Tube Feeding 20 340 150 Other 60 60 Output: Urine 25 7 0 Other: Voiding Method Indwelling Catheter Indwelling Catheter Indwelling Catheter # Voids 0 0 ABP, PAP, CO, CI - Last Documented Arterial Blood Pressure 94/54 On examination he is on 50% FiO2 on the vent. Is sedated No JVP noted neck is supple no facial asymmetry pupils are equal Lungs are clear to auscultation fair air entry bilaterally Heart sounds are unremarkable no murmur rub gallop. Normal sinus rhythm on the monitor Abdomen is nondistended no masses or ascites. Extremity exam was trace edema There is no evidence of any tight compartments. Neurologically obtunded sedated. - Labs CBC & Chem 7: 09/12/16 05:00 09/12/16 05:00 Labs: Abnormal Lab Results - Last 24 Hours (Table) 09/11/16 09/12/16 09/12/16 Range/Units 04:55 00:30 04:58 WBC (3.8-10.6) k/uL RBC (4.30-5.90) m/uL Hgb (13.0-17.5) gm/dL Hct (39.0-53.0) % Plt Count (150-450) k/uL Neutrophils # (1.3-7.7) k/uL Lymphocytes # (1.0-4.8) k/uL ABG pH 7.30 L (7.35-7.45) ABG pO2 115 H (83-108) mmHg ABG HCO3 19 L (21-25) mmol/L ABG O2 Saturation 98.0 H (94-97) % Carbon Dioxide (22-30) mmol/L BUN (9-20) mg/dL Creatinine (0.66-1.25) mg/dL POC Glucose (mg/dL) 101 H (75-99) mg/dL Calcium (8.4-10.2) mg/dL Phosphorus (2.5-4.5) mg/dL Total Bilirubin (0.2-1.3) mg/dL AST (17-59) U/L ALT (21-72) U/L Creatine Kinase (55-170) U/L Total Protein (6.3-8.2) g/dL Albumin (3.5-5.0) g/dL Amylase 120 H (30-110) U/L 09/12/16 09/12/16 Range/Units 05:00 05:00 WBC 11.0 H (3.8-10.6) k/uL RBC 3.24 L (4.30-5.90) m/uL Hgb 10.6 L (13.0-17.5) gm/dL Hct 31.3 L (39.0-53.0) % Plt Count 70 L (150-450) k/uL Neutrophils # 9.6 H (1.3-7.7) k/uL Lymphocytes # 0.6 L (1.0-4.8) k/uL ABG pH (7.35-7.45) ABG pO2 (83-108) mmHg ABG HCO3 (21-25) mmol/L ABG O2 Saturation (94-97) % Carbon Dioxide 19 L (22-30) mmol/L BUN 30 H (9-20) mg/dL Creatinine 6.43 H* (0.66-1.25) mg/dL POC Glucose (mg/dL) (75-99) mg/dL Calcium 6.5 L* (8.4-10.2) mg/dL Phosphorus 6.6 H (2.5-4.5) mg/dL Total Bilirubin 1.4 H (0.2-1.3) mg/dL AST 868 H (17-59) U/L ALT 907 H (21-72) U/L Creatine Kinase 99264 H (55-170) U/L Total Protein 4.4 L (6.3-8.2) g/dL Albumin 2.2 L (3.5-5.0) g/dL Amylase (30-110) U/L Assessment and Plan Plan: Impression 1. ATN from rhabdomyolysis and on dialysis stable, had to sessions of dialysis yesterday and day before. 2. Rhabdomyolysis with CPK is going down to 20 1 from greater than 32,000. 3. Non-gap acidosis with bicarb 19, stable with a pH of 7.3 on blood gas and a pCO2 of 39. 4 Hyperkalemia resolved potassium is 4.2 5. When dependent respiratory failure on 50% FiO2. Unable to wean currently because of possible withdrawal symptoms from alcohol exam. 6. Hypocalcemia with calcium improved to 6.5 from 6.1, albumin off 2.2 and therefore corrected calcium is 7.9 about nearly normal, and hyperphosphatemia secondary to rhabdomyolysis, phosphorus is 6.6. Recommendation. 1. No changes in medications. We'll maintain IV fluids to 75 mL of normal saline and hour We will watch his calcium and phosphorus and if necessary adjust medications and replace calcium if necessary. He'll be next dialyzed on 09/13/2016. Monitor calcium phosphorus potassium and CPK
[2016-09-12 11:39] LABS: Glucose,Whole Blood 89 mg/dL (75-99)
--- NOTE | 2016-09-12 11:48 | P.PN ---
Subjective 40-year-old male orally intubated sedated on vent support family at bedside updated on plan of care. Patient's next dialysis per nephrology is scheduled for September 13. Electrolytes are being corrected per protocol. Patient was not able to be weaned from the vent yesterday secondary to possible withdrawal symptoms related to alcohol consumption Patients being followed by multiple consulting physicians recommendations reviewed noted and appreciated labs reviewed noted Objective - Vital Signs Vital signs: Vital Signs Temp 100.6 F H 09/12/16 08:00 Pulse 97 09/12/16 10:00 Resp 16 09/12/16 10:00 BP 138/61 09/10/16 23:00 Pulse Ox 99 09/12/16 10:00 Intake & Output 09/11/16 09/12/16 09/12/16 18:59 06:59 18:59 Intake Total 2157.865 1600.0 690 Output Total 25 7 0 Balance 2132.865 1593.0 690 Weight 108.3 kg 111.6 kg 111.6 kg Intake: IV 1850 1050.0 400 0.9 @ 75 300 900 300 Piperacillin-Tazobactam 3 50 50.0 .375 gm In Dextrose/Water 1 50ml.bag @ 12.5 mls/hr IVPB Q12H [facility] Rx#: [id number] Sodium Chloride 0.9% 1, 1400 000 ml @ 75 mls/hr IV . [id number] [facility] Rx#:[id number] levETIRAcetam IV 500 mg 100 100 100 In Sodium Chloride 0.9% 100 ml @ 400 mls/hr IVPB Q12HR [facility] Rx#:[id number] Intake, IV Titration 287.865 150 50 Amount Propofol 500 mg In Empty 287.865 150 50 Bag 1 bag @ Titrate IV . Q0M [facility] Rx#:[id number] Tube Feeding 20 340 180 Other 60 60 Output: Urine 25 7 0 Other: Voiding Method Indwelling Catheter Indwelling Catheter Indwelling Catheter # Voids 0 0 ABP, PAP, CO, CI - Last Documented Arterial Blood Pressure 96/54 - Exam Physical exam A 40-year-old male orally intubated sedated on vent support Lungs anterior diminished at the bases upper airways bronchial breath sounds Heart S1-S2 audible no murmur monitor sinus tach rate 110 Abdomen soft tube feeds in progress few hypoactive bowel tones no stooling indwelling Guzman catheter in place Extremities no tremors noted upper extremities. No edema noted. - Labs CBC & Chem 7: 09/12/16 05:00 09/12/16 05:00 Labs: Abnormal Lab Results - Last 24 Hours (Table) 09/12/16 09/12/16 09/12/16 Range/Units 00:30 04:58 05:00 WBC 11.0 H (3.8-10.6) k/uL RBC 3.24 L (4.30-5.90) m/uL Hgb 10.6 L (13.0-17.5) gm/dL Hct 31.3 L (39.0-53.0) % Plt Count 70 L (150-450) k/uL Neutrophils # 9.6 H (1.3-7.7) k/uL Lymphocytes # 0.6 L (1.0-4.8) k/uL ABG pH 7.30 L (7.35-7.45) ABG pO2 115 H (83-108) mmHg ABG HCO3 19 L (21-25) mmol/L ABG O2 Saturation 98.0 H (94-97) % Carbon Dioxide (22-30) mmol/L BUN (9-20) mg/dL Creatinine (0.66-1.25) mg/dL POC Glucose (mg/dL) 101 H (75-99) mg/dL Calcium (8.4-10.2) mg/dL Phosphorus (2.5-4.5) mg/dL Total Bilirubin (0.2-1.3) mg/dL AST (17-59) U/L ALT (21-72) U/L Creatine Kinase (55-170) U/L Total Protein (6.3-8.2) g/dL Albumin (3.5-5.0) g/dL 09/12/16 Range/Units 05:00 WBC (3.8-10.6) k/uL RBC (4.30-5.90) m/uL Hgb (13.0-17.5) gm/dL Hct (39.0-53.0) % Plt Count (150-450) k/uL Neutrophils # (1.3-7.7) k/uL Lymphocytes # (1.0-4.8) k/uL ABG pH (7.35-7.45) ABG pO2 (83-108) mmHg ABG HCO3 (21-25) mmol/L ABG O2 Saturation (94-97) % Carbon Dioxide 19 L (22-30) mmol/L BUN 30 H (9-20) mg/dL Creatinine 6.43 H* (0.66-1.25) mg/dL POC Glucose (mg/dL) (75-99) mg/dL Calcium 6.5 L* (8.4-10.2) mg/dL Phosphorus 6.6 H (2.5-4.5) mg/dL Total Bilirubin 1.4 H (0.2-1.3) mg/dL AST 868 H (17-59) U/L ALT 907 H (21-72) U/L Creatine Kinase 44186 H (55-170) U/L Total Protein 4.4 L (6.3-8.2) g/dL Albumin 2.2 L (3.5-5.0) g/dL Assessment and Plan Plan: Impression Present on admission acute hypoxic respiratory failure on vent support multifactorial Present on admission severely hyperkalemic potassium 8.7 Present on admission urine drug screen positive for opiates Polysubstance of drug abuse Suspect anoxic brain injury Present on admission acute kidney injury anion gap metabolic acidosis due to acute kidney injury with lactic acidosis Active tobacco abuse Possible seizure activity Right lower lobe atelectasis with an aspiration event Severe refractory shock resolved Present on admission Rhabdomyolysis Lactic acidosis History of a depressive disorder nonspecified on Lexapro at home Present on admission Hypomagnesemia with elevated potassium hyperkalemic Present on admission acute alcohol intoxication History of chronic alcoholism daily consumption Plan Continue with recommendations from the die cutter apprentice for ICU management Pulmonary for vent management Continue recommendations by nephrology defer to Monitor electrolytes addressed per protocol on the ICU DVT and GI prophylaxis Continue full vent support wean FiO2 as tolerated per pulmonology's recommendations IV fluid at 75 an hour Per nephrology schedule dialysis on the 13 September The above dictated assessment and findings were discussed with dr daryl Dover and the plan of care have been dictated as directed. Pavithra Hameed nurse practitioner acting as a scribe for dr brito
--- NOTE | 2016-09-12 13:19 | P.PN ---
Subjective Principal diagnosis: Respiratory failure Patient seen and examined in the ICU with nursing and family at bedside. Patient has been hemodynamically stable. He has has less tremors. EEG shows no seizure activity. He remains anuric. He is tolerating tube feeds well. Objective - Vital Signs Vital signs: Vital Signs Temp 100.6 F H 09/12/16 12:00 Pulse 111 H 09/12/16 12:16 Resp 16 09/12/16 12:00 BP 148/81 09/12/16 12:00 Pulse Ox 100 09/12/16 12:00 Intake & Output 09/11/16 09/12/16 09/12/16 18:59 06:59 18:59 Intake Total 2157.865 1600.0 899.477 Output Total 25 7 0 Balance 2132.865 1593.0 899.477 Weight 108.3 kg 111.6 kg 111.6 kg Intake: IV 1850 1050.0 550 0.9 @ 75 300 900 450 Piperacillin-Tazobactam 3 50 50.0 .375 gm In Dextrose/Water 1 50ml.bag @ 12.5 mls/hr IVPB Q12H [facility] Rx#: [id number] Sodium Chloride 0.9% 1, 1400 000 ml @ 75 mls/hr IV . [id number] [facility] Rx#:[id number] levETIRAcetam IV 500 mg 100 100 100 In Sodium Chloride 0.9% 100 ml @ 400 mls/hr IVPB Q12HR [facility] Rx#:[id number] Intake, IV Titration 287.865 150 79.477 Amount Propofol 500 mg In Empty 287.865 150 79.477 Bag 1 bag @ Titrate IV . Q0M [facility] Rx#:[id number] Tube Feeding 20 340 210 Other 60 60 Output: Urine 25 7 0 Other: Voiding Method Indwelling Catheter Indwelling Catheter Indwelling Catheter # Voids 0 0 ABP, PAP, CO, CI - Last Documented Arterial Blood Pressure 189/77 - Exam Gen: sedated on vent CV: RRR, s1/s2 Lungs: CTAB, no w/r/r Abd: soft, NT/ND, +BS Ext: ++ edema - Labs CBC & Chem 7: 09/12/16 05:00 09/12/16 05:00 Labs: Abnormal Lab Results - Last 24 Hours (Table) 09/12/16 09/12/16 09/12/16 Range/Units 00:30 04:58 05:00 WBC 11.0 H (3.8-10.6) k/uL RBC 3.24 L (4.30-5.90) m/uL Hgb 10.6 L (13.0-17.5) gm/dL Hct 31.3 L (39.0-53.0) % Plt Count 70 L (150-450) k/uL Neutrophils # 9.6 H (1.3-7.7) k/uL Lymphocytes # 0.6 L (1.0-4.8) k/uL ABG pH 7.30 L (7.35-7.45) ABG pO2 115 H (83-108) mmHg ABG HCO3 19 L (21-25) mmol/L ABG O2 Saturation 98.0 H (94-97) % Carbon Dioxide (22-30) mmol/L BUN (9-20) mg/dL Creatinine (0.66-1.25) mg/dL POC Glucose (mg/dL) 101 H (75-99) mg/dL Calcium (8.4-10.2) mg/dL Phosphorus (2.5-4.5) mg/dL Total Bilirubin (0.2-1.3) mg/dL AST (17-59) U/L ALT (21-72) U/L Creatine Kinase (55-170) U/L Total Protein (6.3-8.2) g/dL Albumin (3.5-5.0) g/dL 09/12/16 Range/Units 05:00 WBC (3.8-10.6) k/uL RBC (4.30-5.90) m/uL Hgb (13.0-17.5) gm/dL Hct (39.0-53.0) % Plt Count (150-450) k/uL Neutrophils # (1.3-7.7) k/uL Lymphocytes # (1.0-4.8) k/uL ABG pH (7.35-7.45) ABG pO2 (83-108) mmHg ABG HCO3 (21-25) mmol/L ABG O2 Saturation (94-97) % Carbon Dioxide 19 L (22-30) mmol/L BUN 30 H (9-20) mg/dL Creatinine 6.43 H* (0.66-1.25) mg/dL POC Glucose (mg/dL) (75-99) mg/dL Calcium 6.5 L* (8.4-10.2) mg/dL Phosphorus 6.6 H (2.5-4.5) mg/dL Total Bilirubin 1.4 H (0.2-1.3) mg/dL AST 868 H (17-59) U/L ALT 907 H (21-72) U/L Creatine Kinase 16300 H (55-170) U/L Total Protein 4.4 L (6.3-8.2) g/dL Albumin 2.2 L (3.5-5.0) g/dL Assessment and Plan Plan: Acute hypoxic respiratory failure requiring mechanical ventilation Severe refractory Shock, resolved Delirium tremens Right lower lobe atelectasis, aspiration event Severe metabolic acidosis, anion gap with mixed respiratory acidosis Severe hyperkalemia Acute renal failure, requiring hemodialysis Rhabdomyolysis Lactic acidosis Possible seizure activity Hypomagnesemia Shock liver History of opiate and alcohol abuse Active tobacco abuse Continue full vent support, wean FiO2 as able, decrease PEEP to 8 and FiO2 to 40 % Advance ETT 2 cm Decrease sedation, hopeful to try SBT Sports bed with chest PT Continue Mucomyst Monitor labs IV fluids at 75 mL per hour Monitor urine output Ativan PRN seizure Antibiotics: Zosyn Monitor CPK Jessira Neurology recommendations, EEG negative for seizure activity Pain control Hydralazine as needed Nephrology recommendations GI and DVT prophylaxis Continue tube feeds, multivitamin, thiamine, folate Family is updated to plan of care. Prognosis is very guarded.
--- NOTE | 2016-09-12 15:22 | P.PN ---
Subjective Principal diagnosis: Respiratory failure Patient is evaluated in the intensive care unit where he remains on ventilatory support and sedated. Per nursing report, patient has been unable to be weaned off sedation secondary to EtOH withdrawal. Patient has been started on enteral feeding. Total bilirubin increased to 1.4. AST and ALT decreased to 868 and 907 , respectively. Alkaline phosphatase normal. Objective - Vital Signs Vital signs: Vital Signs Temp 100.6 F H 09/12/16 12:00 Pulse 111 H 09/12/16 12:16 Resp 16 09/12/16 12:00 BP 148/81 09/12/16 12:00 Pulse Ox 100 09/12/16 12:00 Intake & Output 09/11/16 09/12/16 09/12/16 18:59 06:59 18:59 Intake Total 2157.865 1600.0 899.477 Output Total 25 7 0 Balance 2132.865 1593.0 899.477 Weight 108.3 kg 111.6 kg 111.6 kg Intake: IV 1850 1050.0 550 0.9 @ 75 300 900 450 Piperacillin-Tazobactam 3 50 50.0 .375 gm In Dextrose/Water 1 50ml.bag @ 12.5 mls/hr IVPB Q12H [facility] Rx#: [id number] Sodium Chloride 0.9% 1, 1400 000 ml @ 75 mls/hr IV . [id number] [facility] Rx#:[id number] levETIRAcetam IV 500 mg 100 100 100 In Sodium Chloride 0.9% 100 ml @ 400 mls/hr IVPB Q12HR [facility] Rx#:[id number] Intake, IV Titration 287.865 150 79.477 Amount Propofol 500 mg In Empty 287.865 150 79.477 Bag 1 bag @ Titrate IV . Q0M [facility] Rx#:[id number] Tube Feeding 20 340 210 Other 60 60 Output: Urine 25 7 0 Other: Voiding Method Indwelling Catheter Indwelling Catheter Indwelling Catheter # Voids 0 0 ABP, PAP, CO, CI - Last Documented Arterial Blood Pressure 189/77 - Exam GENERAL: Pt sedated on ventilatory support. Appears in no acute distress. LUNGS: Breath sounds diminished to auscultation bilaterally. No wheezes, rales , or rhonchi. HEART: Heart S1, S2, no S3 or S4. Regular rate and rhythm. No murmurs, rubs or gallops. ABDOMEN: Soft, nontender, nondistended, normoactive bowel sounds. - Labs CBC & Chem 7: 09/12/16 05:00 09/12/16 05:00 Labs: Abnormal Lab Results - Last 24 Hours (Table) 09/12/16 09/12/16 09/12/16 Range/Units 00:30 04:58 05:00 WBC 11.0 H (3.8-10.6) k/uL RBC 3.24 L (4.30-5.90) m/uL Hgb 10.6 L (13.0-17.5) gm/dL Hct 31.3 L (39.0-53.0) % Plt Count 70 L (150-450) k/uL Neutrophils # 9.6 H (1.3-7.7) k/uL Lymphocytes # 0.6 L (1.0-4.8) k/uL ABG pH 7.30 L (7.35-7.45) ABG pO2 115 H (83-108) mmHg ABG HCO3 19 L (21-25) mmol/L ABG O2 Saturation 98.0 H (94-97) % Carbon Dioxide (22-30) mmol/L BUN (9-20) mg/dL Creatinine (0.66-1.25) mg/dL POC Glucose (mg/dL) 101 H (75-99) mg/dL Calcium (8.4-10.2) mg/dL Phosphorus (2.5-4.5) mg/dL Total Bilirubin (0.2-1.3) mg/dL AST (17-59) U/L ALT (21-72) U/L Creatine Kinase (55-170) U/L Total Protein (6.3-8.2) g/dL Albumin (3.5-5.0) g/dL 09/12/16 Range/Units 05:00 WBC (3.8-10.6) k/uL RBC (4.30-5.90) m/uL Hgb (13.0-17.5) gm/dL Hct (39.0-53.0) % Plt Count (150-450) k/uL Neutrophils # (1.3-7.7) k/uL Lymphocytes # (1.0-4.8) k/uL ABG pH (7.35-7.45) ABG pO2 (83-108) mmHg ABG HCO3 (21-25) mmol/L ABG O2 Saturation (94-97) % Carbon Dioxide 19 L (22-30) mmol/L BUN 30 H (9-20) mg/dL Creatinine 6.43 H* (0.66-1.25) mg/dL POC Glucose (mg/dL) (75-99) mg/dL Calcium 6.5 L* (8.4-10.2) mg/dL Phosphorus 6.6 H (2.5-4.5) mg/dL Total Bilirubin 1.4 H (0.2-1.3) mg/dL AST 868 H (17-59) U/L ALT 907 H (21-72) U/L Creatine Kinase 86547 H (55-170) U/L Total Protein 4.4 L (6.3-8.2) g/dL Albumin 2.2 L (3.5-5.0) g/dL Assessment and Plan Plan: Impression: 1. Acute pancreatitis, present on admission, suspect secondary to EtOH abuse. 2. Increased liver enzymes, present on admission, suspect secondary to hypoperfusion, improving. Plan: Continue to monitor patient. Continue to monitor liver enzymes. Continue medical management. Patient is not a surgical candidate at this time. The above impression and plan have been discussed and directed by Dr. Figueroa. Solomon MANN acting as scribe for Dr. Figueroa.
[2016-09-12] MEDS: FOLIC ACID 1 MG TAB OG-TUBE SCH (18:28)
[2016-09-12] MEDS: THIAMINE 100 MG TAB OG-TUBE SCH (18:28)
[2016-09-12] MEDS: ARTIFICIAL TEARS-HYPROMELLOSE DROPS 15 ML BTL BOTH EYES SCH ×3 (18:28→20:17)
[2016-09-12] MEDS: MULTIVITAMINS, THERA LIQUID 237 ML BOTTLE OG-TUBE SCH (18:28)
[2016-09-12 18:39] LABS: Glucose,Whole Blood 79 mg/dL (75-99)
--- NOTE | 2016-09-12 20:02 | P.PN ---
Subjective This patient is a 40-year-old right-handed white male who was admitted just after being found unresponsive at his home. Patient was found to have evidence of acute hypoxic respiratory failure and was intubated and transferred to the intensive care unit yesterday. He was seen for neurology consultation yesterday and had evidence of severe anoxic encephalopathy. He remains on a Diprivan drip at this time. He underwent a venous Doppler ultrasound today which was negative for any evidence of DVT in the lower extremities. He did develop severe hyperkalemia and did require hemodialysis yesterday. He is seen by nephrology and will be scheduled for hemodialysis tomorrow. He has evidence of ATN secondary to rhabdomyolysis. His initial admission serum creatinine was elevated at 3.5. Patient remains on Diprivan drip. When he is weaned off of the Diprivan he is very agitated and restless. He was started on Keppra for possible seizure activity. We will be obtaining an EEG tomorrow for further evaluation. Patient likely has some degree of anoxic brain injury secondary to his acute respiratory failure. We will continue close neurological follow-up of this patient in the intensive care unit. According to the ICU nurse he has a extensive history of alcohol abuse drinking over 20 beers a day. Patient's girlfriend was seen today at bedside. She does collaborate his history of extensive alcohol abuse history in the past. 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 According to the girlfriend he had to go for breathalyzer test before owing to work. He also has had several episodes in which she is drunk at work. All this information was obtained from his girlfriend who was at his bedside today on rounds. We did update her on his overall prognosis at this time. According to the ICU nurse he was started on Ativan as a CIWA protocol. He did complete a routine EEG late this evening which was reviewed. EEG reveals fairly good brain activity with a background of 6-7 hertz. No epileptiform discharges were seen. Attempt to wean him off of Diprivan today was short-lived as he became agitated. His Keppra level did come back therapeutic at 14.2. We will continue him on his current dose of Keppra. Case was discussed at length at bedside yesterday in the ICU with the patient's girlfriend. Today both of his parents were present and they were updated on his overall condition. All of their questions were answered. They are aware of his guarded condition. His overall prognosis at this time remains very guarded. Objective - Vital Signs Vital signs: Vital Signs Temp 100.6 F H 09/12/16 12:00 Pulse 116 H 09/12/16 16:05 Resp 16 09/12/16 13:30 BP 169/81 09/12/16 13:30 Pulse Ox 97 09/12/16 13:30 Intake & Output 09/11/16 09/12/16 09/12/16 18:59 06:59 18:59 Intake Total 2157.865 1600.0 1024.477 Output Total 25 7 0 Balance 2132.865 1593.0 1024.477 Weight 108.3 kg 111.6 kg 111.6 kg Intake: IV 1850 1050.0 675 0.9 @ 75 300 900 525 Piperacillin-Tazobactam 3 50 50.0 50 .375 gm In Dextrose/Water 1 50ml.bag @ 12.5 mls/hr IVPB Q12H [facility] Rx#: [id number] Sodium Chloride 0.9% 1, 1400 000 ml @ 75 mls/hr IV . [id number] [facility] Rx#:[id number] levETIRAcetam IV 500 mg 100 100 100 In Sodium Chloride 0.9% 100 ml @ 400 mls/hr IVPB Q12HR [facility] Rx#:[id number] Intake, IV Titration 287.865 150 79.477 Amount Propofol 500 mg In Empty 287.865 150 79.477 Bag 1 bag @ Titrate IV . Q0M [facility] Rx#:[id number] Tube Feeding 20 340 210 Other 60 60 Output: Urine 25 7 0 Other: Voiding Method Indwelling Catheter Indwelling Catheter Indwelling Catheter # Voids 0 0 ABP, PAP, CO, CI - Last Documented Arterial Blood Pressure 165/75 - Exam Physical examination: PHYSICAL EXAMINATION: Patient is resting comfortably in bed. Patient currently intubated on the ventilator on Diprivan drip. VITAL SIGNS: Blood pressure is [139/75]. Heart rate is [116]. Respiration is [19 ]. Temperature is [100.9]. HEENT: Head is atraumatic, neck is supple, there were no carotid bruits. CHEST: Lungs are clear to auscultation and percussion. CARDIAC: S1, S2 normal rate and rhythm. There is no murmur. ABDOMEN: Soft and nontender. Bowel sounds are present. EXTREMITIES: There is no pedal edema. Peripheral pulses are present. Neurological examination: Patient intubated on the ventilator on Diprivan drip. Neurological examination is limited at this time. - Labs CBC & Chem 7: 09/12/16 05:00 09/12/16 05:00 Labs: Abnormal Lab Results - Last 24 Hours (Table) 09/12/16 09/12/16 09/12/16 Range/Units 00:30 04:58 05:00 WBC 11.0 H (3.8-10.6) k/uL RBC 3.24 L (4.30-5.90) m/uL Hgb 10.6 L (13.0-17.5) gm/dL Hct 31.3 L (39.0-53.0) % Plt Count 70 L (150-450) k/uL Neutrophils # 9.6 H (1.3-7.7) k/uL Lymphocytes # 0.6 L (1.0-4.8) k/uL ABG pH 7.30 L (7.35-7.45) ABG pO2 115 H (83-108) mmHg ABG HCO3 19 L (21-25) mmol/L ABG O2 Saturation 98.0 H (94-97) % Carbon Dioxide (22-30) mmol/L BUN (9-20) mg/dL Creatinine (0.66-1.25) mg/dL POC Glucose (mg/dL) 101 H (75-99) mg/dL Calcium (8.4-10.2) mg/dL Phosphorus (2.5-4.5) mg/dL Total Bilirubin (0.2-1.3) mg/dL AST (17-59) U/L ALT (21-72) U/L Creatine Kinase (55-170) U/L Total Protein (6.3-8.2) g/dL Albumin (3.5-5.0) g/dL 09/12/16 Range/Units 05:00 WBC (3.8-10.6) k/uL RBC (4.30-5.90) m/uL Hgb (13.0-17.5) gm/dL Hct (39.0-53.0) % Plt Count (150-450) k/uL Neutrophils # (1.3-7.7) k/uL Lymphocytes # (1.0-4.8) k/uL ABG pH (7.35-7.45) ABG pO2 (83-108) mmHg ABG HCO3 (21-25) mmol/L ABG O2 Saturation (94-97) % Carbon Dioxide 19 L (22-30) mmol/L BUN 30 H (9-20) mg/dL Creatinine 6.43 H* (0.66-1.25) mg/dL POC Glucose (mg/dL) (75-99) mg/dL Calcium 6.5 L* (8.4-10.2) mg/dL Phosphorus 6.6 H (2.5-4.5) mg/dL Total Bilirubin 1.4 H (0.2-1.3) mg/dL AST 868 H (17-59) U/L ALT 907 H (21-72) U/L Creatine Kinase 89171 H (55-170) U/L Total Protein 4.4 L (6.3-8.2) g/dL Albumin 2.2 L (3.5-5.0) g/dL Assessment and Plan (1) Anoxic encephalopathy Status: Acute Code(s): G93.1 - ANOXIC BRAIN DAMAGE, NOT ELSEWHERE CLASSIFIED (2) Acute hyperkalemia Status: Acute Code(s): E87.5 - HYPERKALEMIA (3) Acute respiratory failure Status: Acute Code(s): J96.00 - ACUTE RESPIRATORY FAILURE, UNSP W HYPOXIA OR HYPERCAPNIA (4) Alcoholic hepatitis Status: Acute Code(s): K70.10 - ALCOHOLIC HEPATITIS WITHOUT ASCITES (5) Sepsis Status: Acute Code(s): A41.9 - SEPSIS, UNSPECIFIED ORGANISM Plan: This patient is a 40-year-old male who was found unresponsive at his home by his supervisor estimator and drafter. The patient was late for work for over 3 hours and his supervisor estimator and drafter and went to check on him. He found him sitting in a chair unresponsive. It is unclear how long he may have been in this position but it is estimated to be over 2 hours. Patient was having shallow breathing. When EMS arrived they had to intubate him. He was transferred to the emergency room where he was further evaluated. He underwent a computed tomography scan of the brain results which are noted above. CAT scan was negative for any acute changes. He was intubated due to respiratory failure and aspiration pneumonia and transferred to the intensive care unit. Initially in the ICU he had some muscle twitching. This is felt to be secondary to severe anoxic encephalopathy. He has been started on levetiracetam and we will monitor his response closely. This patient has a severe anoxic encephalopathy secondary to respiratory failure. Etiology of his respiratory failure is undetermined at this time. He does have evidence of aspiration pneumonia as well on chest x- ray. We reviewed the computed tomography scan of the brain which is negative for any acute changes. We will obtain routine EEG for further assessment. He should be maintained on levetiracetam at this time. We will check a level and adjust his dose as needed. His Keppra level is still pending this morning. He does have history of underlying alcohol abuse and may benefit from CIWA protocol as he does show signs of early DTs. Apparently the patient drinks heavily at home on a regular basis. Case was discussed today at bedside in the ICU with the patient's girlfriend. She collaborates his history of severe alcohol abuse in the past. He has been admitted to drug rehabilitation at [facility] several times in the past. He has reported to work drunk in the past according to the girlfriend. The patient is to continue on Keppra at this time. His Keppra blood level did come back therapeutic at 14.2. Apparently he is unable to remain off of the propofol due to increased tremors. This likely is due to DTs. We will continue to follow with pulmonary medicine with slow tapering of his medications. He did undergo routine EEG today which was reviewed. EEG actually is good and reveals a background of 6-7 hertz. No epileptiform discharges were seen. Case was discussed yesterday at length with the patient's girlfriend at bedside in the ICU. She is been updated on his overall neurological status and guarded condition. Today both of his parents were present in the ICU. We have also updated them on his current neurological status. We will continue close monitoring and will await his weaning parameters to continue. This patient's overall prognosis at this time remains very guarded. We will continue close neurological follow-up of this patient in the intensive care unit.
[2016-09-12 20:28] LABS: Glucose,Whole Blood 86 mg/dL (75-99)
[2016-09-13] MEDS: ALBUTEROL NEBULIZED 2.5 MG/3 ML INHALATION SCH ×6 (00:24→19:44)
[2016-09-13 02:01] LABS: Glucose,Whole Blood 76 mg/dL (75-99)
[2016-09-13] MEDS ORDERED: DEXTROSE 50%-WATER 50 ML SYRINGE IVP STA (02:07)
[2016-09-13 02:16] LABS: Glucose,Whole Blood 137 mg/dL (75-99)
[2016-09-13 03:33] LABS: Basophils % (A) 0 %; CHCM 33.3; Eosinophils # (A) 0.2 k/uL (0-0.7); Eosinophils % (A) 2 %; HCT 30.2 % (39.0-53.0); HDW 2.67; HGB 9.8 gm/dL (13.0-17.5); Luc # (Auto) 0.16; Luc % (Auto) 2; Lymphocytes # (A) 0.5 k/uL (1.0-4.8); Lymphocytes % (A) 5 %; MCH 31.4 pg (25.0-35.0); MCHC 32.4 g/dL (31.0-37.0); MCV 96.8 fL (80.0-100.0); Mean Platelet Volume 8.8; Monocytes # (A) 0.5 k/uL (0-1.0); Monocytes % (A) 5 %; Neutrophils # (A) 8.7 k/uL (1.3-7.7); Neutrophils % (A) 86 %; RBC 3.12 m/uL (4.30-5.90); RDW 13.3 % (11.5-15.5)
[2016-09-13 03:56] LABS: Magnesium 2.4 mg/dL (1.6-2.3); Potassium 4.3 mmol/L (3.5-5.1); Total Bilirubin 2.6 mg/dL (0.2-1.3); Total Protein 4.3 g/dL (6.3-8.2)
[2016-09-13 04:10] LABS: INR 0.9 (<1.1); Partial Thromboplastin Time 27.1 sec (22.0-30.0); Prothrombin Time 9.7 sec (9.0-12.0)
[2016-09-13 04:31] LABS: Phosphorous 8.7 mg/dL (2.5-4.5)
[2016-09-13] MEDS: PROPOFOL 500 MG in EMPTY BAG 1 BAG IV SCH ×10 (04:53→23:38)
[2016-09-13 05:54] LABS: ABG HCO3 16 mmol/L (21-25); ABG PCO2 36 mmHg (35-45); ABG PH 7.28 (7.35-7.45); ABG PO2 156 mmHg (83-108); ABG TCO2 18 mmol/L (19-24)
--- NOTE | 2016-09-13 07:16 | XR ---
EXAMINATION TYPE: XR chest 1V portable DATE OF EXAM: 09/13/2016 7:09 AM COMPARISON: Prior chest x-ray 12 September 2016 HISTORY: Intubated TECHNIQUE: Single frontal view of the chest is obtained. FINDINGS: Endotracheal tube, NG tube are overlying appropriate positions. There is obscured hemidiap hragms bilaterally. Patient is rotated. Heart size is accentuated. Basilar increased densities noted, there is no evident pneumothorax. IMPRESSION: There may be basilar effusions and associated atelectasis versus pneumonia or edema. Fol low-up is recommended.
[2016-09-13] MEDS: ACETYLCYSTEINE 800 MG/4 ML VIAL INHALATION SCH (07:51)
[2016-09-13] MEDS: CHLORHEXIDINE GLUCONATE 15 ML CUP MUCOUS MEM SCH ×2 (08:11→20:28)
[2016-09-13] MEDS ORDERED: PROPOFOL 50 ML IV ONE ×5 (08:39→17:51)
[2016-09-13] MEDS: HEPARIN SODIUM,PORCINE 5,000 UNIT/ML 1 ML VIAL SQ SCH ×3 (08:42→23:50)
[2016-09-13] MEDS: PANTOPRAZOLE 40 MG/10 ML VIAL IV SCH (08:43)
[2016-09-13] MEDS: ARTIFICIAL TEARS-HYPROMELLOSE DROPS 15 ML BTL BOTH EYES SCH ×4 (08:43→22:31)
[2016-09-13] MEDS: hydrALAZINE HCL 20 MG/ML 1 ML VIAL IVP PRN ×2 (09:07→16:27)
[2016-09-13] MEDS: levETIRAcetam IV 500 MG in SODIUM CHLORIDE 0.9% 100 ML IVPB SCH ×3 (09:08→20:28)
[2016-09-13] MEDS: LORazepam 2 MG/ML SYRINGE IV PRN ×4 (09:10→23:50)
--- NOTE | 2016-09-13 10:52 | P.PN ---
Subjective 40-year-old being seen in the intensive care unit. Patient currently is vented sedated on vent support being followed by multiple consulting physicians. Patient did have an EEG done the day before showed no seizure activity. Family is at the bedside. Patient is to be scheduled for hemodialysis today per nephrology's recommendations currently patient is on IV Ativan when necessary for seizure Objective - Vital Signs Vital signs: Vital Signs Temp 97.3 F L 09/13/16 08:00 Pulse 87 09/13/16 10:00 Resp 16 09/13/16 10:00 BP 198/82 09/12/16 18:30 Pulse Ox 100 09/13/16 10:00 Intake & Output 09/12/16 09/13/16 09/13/16 18:59 06:59 18:59 Intake Total 2581.574 3748.452 351.711 Output Total 15 25 10 Balance 7446.470 3260.452 341.711 Weight 111.6 kg 112.9 kg Intake: IV 1050 1075 225 0.9 @ 75 900 975 225 Piperacillin-Tazobactam 3 50 .375 gm In Dextrose/Water 1 50ml.bag @ 12.5 mls/hr IVPB Q12H [facility] Rx#: [id number] levETIRAcetam IV 500 mg 100 100 In Sodium Chloride 0.9% 100 ml @ 400 mls/hr IVPB Q12HR [facility] Rx#:[id number] Intake, IV Titration 79.477 142.452 96.711 Amount Propofol 500 mg In Empty 79.477 142.452 96.711 Bag 1 bag @ Titrate IV . Q0M [facility] Rx#:[id number] Tube Feeding 240 540 30 Other 60 Output: Urine 15 25 10 Other: Voiding Method Indwelling Catheter Indwelling Catheter Indwelling Catheter # Voids 0 ABP, PAP, CO, CI - Last Documented Arterial Blood Pressure 132/64 - Exam Physical exam 40-year-old male orally intubated sedated on vent support no tremors noted morning Lungs anterior coarse rhonchi diminished bases no wheezing noted Heart S1-S2 audible and regular monitor sinus tach heart rate 90s to 100 Abdomen soft tolerating tube feeds indwelling Guzman catheter in place no document stooling Extremities no tremors noted a trace pedal edema bilaterally - Labs CBC & Chem 7: 09/13/16 03:20 09/13/16 03:20 Labs: Abnormal Lab Results - Last 24 Hours (Table) 09/13/16 09/13/16 09/13/16 Range/Units 02:14 03:20 03:20 RBC 3.12 L (4.30-5.90) m/uL Hgb 9.8 L (13.0-17.5) gm/dL Hct 30.2 L (39.0-53.0) % Plt Count 68 L (150-450) k/uL Neutrophils # 8.7 H (1.3-7.7) k/uL Lymphocytes # 0.5 L (1.0-4.8) k/uL ABG pH (7.35-7.45) ABG pO2 (83-108) mmHg ABG HCO3 (21-25) mmol/L ABG Total CO2 (19-24) mmol/L ABG O2 Saturation (94-97) % Carbon Dioxide 17 L (22-30) mmol/L BUN 44 H (9-20) mg/dL Creatinine 8.60 H* (0.66-1.25) mg/dL POC Glucose (mg/dL) 137 H (75-99) mg/dL Calcium 7.0 L (8.4-10.2) mg/dL Phosphorus 8.7 H* (2.5-4.5) mg/dL Magnesium 2.4 H (1.6-2.3) mg/dL Total Bilirubin 2.6 H (0.2-1.3) mg/dL AST 473 H (17-59) U/L ALT 639 H (21-72) U/L Creatine Kinase 63090 H (55-170) U/L Total Protein 4.3 L (6.3-8.2) g/dL Albumin 2.3 L (3.5-5.0) g/dL 09/13/16 Range/Units 05:22 RBC (4.30-5.90) m/uL Hgb (13.0-17.5) gm/dL Hct (39.0-53.0) % Plt Count (150-450) k/uL Neutrophils # (1.3-7.7) k/uL Lymphocytes # (1.0-4.8) k/uL ABG pH 7.28 L (7.35-7.45) ABG pO2 156 H (83-108) mmHg ABG HCO3 16 L (21-25) mmol/L ABG Total CO2 18 L (19-24) mmol/L ABG O2 Saturation 99.0 H (94-97) % Carbon Dioxide (22-30) mmol/L BUN (9-20) mg/dL Creatinine (0.66-1.25) mg/dL POC Glucose (mg/dL) (75-99) mg/dL Calcium (8.4-10.2) mg/dL Phosphorus (2.5-4.5) mg/dL Magnesium (1.6-2.3) mg/dL Total Bilirubin (0.2-1.3) mg/dL AST (17-59) U/L ALT (21-72) U/L Creatine Kinase (55-170) U/L Total Protein (6.3-8.2) g/dL Albumin (3.5-5.0) g/dL Assessment and Plan Plan: Impression Present on admission acute hypoxic respiratory failure on vent support multifactorial Present on admission severely hyperkalemic potassium 8.7 Present on admission urine drug screen positive for opiates Polysubstance of drug abuse Suspect anoxic brain injury Present on admission acute kidney injury anion gap metabolic acidosis due to acute kidney injury with lactic acidosis Active tobacco abuse Possible seizure activity Right lower lobe atelectasis with an aspiration event Severe refractory shock resolved Present on admission Rhabdomyolysis Lactic acidosis History of a depressive disorder nonspecified on Lexapro at home Present on admission Hypomagnesemia with elevated potassium hyperkalemic Present on admission acute alcohol intoxication History of chronic alcoholism daily consumption Present on Admission elevated lipase amylase AST ALT suspect acute pancreatitis due to chronic alcoholism Plan Continue with recommendations from the web services manager for ICU management Pulmonary for vent management Continue recommendations by nephrology defer to Monitor electrolytes addressed per protocol on the ICU DVT and GI prophylaxis Continue full vent support wean FiO2 as tolerated per pulmonology's recommendations IV fluid at 75 an hour Per nephrology schedule dialysis on the 13 September Continue recommendations from all consulting physicians defer to Family updated on plan of care treatment questions answered The above dictated assessment and findings were discussed with dr brito Impression and the plan of care have been dictated as directed. Pavithra Hameed nurse practitioner acting as a scribe for dr brito
[2016-09-13 11:55] LABS: Glucose,Whole Blood 89 mg/dL (75-99)
--- NOTE | 2016-09-13 11:58 | P.PN ---
Subjective Principal diagnosis: Respiratory failure Patient seen and examined in the ICU with nursing staff at bedside. Patient is currently undergoing hemodialysis. The patient remains in uric. He was off of sedation for about 6 hours yesterday and became tachycardic and hypertensive. The patient did follow some simple commands. However he was not awake enough to wean. This morning a sedation holiday was performed again in the patient again became hypertensive and tachycardic. Continue sedation while patient is on hemodialysis at this time. Objective - Vital Signs Vital signs: Vital Signs Temp 97.3 F L 09/13/16 08:00 Pulse 77 09/13/16 11:45 Resp 16 09/13/16 11:00 BP 198/82 09/12/16 18:30 Pulse Ox 100 09/13/16 11:00 Intake & Output 09/12/16 09/13/16 09/13/16 18:59 06:59 18:59 Intake Total 8123.903 3153.452 426.711 Output Total 15 25 15 Balance 0196.550 0073.452 411.711 Weight 111.6 kg 112.9 kg Intake: IV 1050 1075 300 0.9 @ 75 900 975 300 Piperacillin-Tazobactam 3 50 .375 gm In Dextrose/Water 1 50ml.bag @ 12.5 mls/hr IVPB Q12H [facility] Rx#: [id number] levETIRAcetam IV 500 mg 100 100 In Sodium Chloride 0.9% 100 ml @ 400 mls/hr IVPB Q12HR [facility] Rx#:[id number] Intake, IV Titration 79.477 142.452 96.711 Amount Propofol 500 mg In Empty 79.477 142.452 96.711 Bag 1 bag @ Titrate IV . Q0M [facility] Rx#:[id number] Tube Feeding 240 540 30 Other 60 Output: Urine 15 25 15 Other: Voiding Method Indwelling Catheter Indwelling Catheter Indwelling Catheter # Voids 0 ABP, PAP, CO, CI - Last Documented Arterial Blood Pressure 126/62 - Exam Gen: sedated on vent CV: RRR, s1/s2 Lungs: CTAB, no w/r/r Abd: soft, NT/ND, +BS Ext: ++ edema - Labs CBC & Chem 7: 09/13/16 03:20 09/13/16 03:20 Labs: Abnormal Lab Results - Last 24 Hours (Table) 09/13/16 09/13/16 09/13/16 Range/Units 02:14 03:20 03:20 RBC 3.12 L (4.30-5.90) m/uL Hgb 9.8 L (13.0-17.5) gm/dL Hct 30.2 L (39.0-53.0) % Plt Count 68 L (150-450) k/uL Neutrophils # 8.7 H (1.3-7.7) k/uL Lymphocytes # 0.5 L (1.0-4.8) k/uL ABG pH (7.35-7.45) ABG pO2 (83-108) mmHg ABG HCO3 (21-25) mmol/L ABG Total CO2 (19-24) mmol/L ABG O2 Saturation (94-97) % Carbon Dioxide 17 L (22-30) mmol/L BUN 44 H (9-20) mg/dL Creatinine 8.60 H* (0.66-1.25) mg/dL POC Glucose (mg/dL) 137 H (75-99) mg/dL Calcium 7.0 L (8.4-10.2) mg/dL Phosphorus 8.7 H* (2.5-4.5) mg/dL Magnesium 2.4 H (1.6-2.3) mg/dL Total Bilirubin 2.6 H (0.2-1.3) mg/dL AST 473 H (17-59) U/L ALT 639 H (21-72) U/L Creatine Kinase 37715 H (55-170) U/L Total Protein 4.3 L (6.3-8.2) g/dL Albumin 2.3 L (3.5-5.0) g/dL 09/13/16 Range/Units 05:22 RBC (4.30-5.90) m/uL Hgb (13.0-17.5) gm/dL Hct (39.0-53.0) % Plt Count (150-450) k/uL Neutrophils # (1.3-7.7) k/uL Lymphocytes # (1.0-4.8) k/uL ABG pH 7.28 L (7.35-7.45) ABG pO2 156 H (83-108) mmHg ABG HCO3 16 L (21-25) mmol/L ABG Total CO2 18 L (19-24) mmol/L ABG O2 Saturation 99.0 H (94-97) % Carbon Dioxide (22-30) mmol/L BUN (9-20) mg/dL Creatinine (0.66-1.25) mg/dL POC Glucose (mg/dL) (75-99) mg/dL Calcium (8.4-10.2) mg/dL Phosphorus (2.5-4.5) mg/dL Magnesium (1.6-2.3) mg/dL Total Bilirubin (0.2-1.3) mg/dL AST (17-59) U/L ALT (21-72) U/L Creatine Kinase (55-170) U/L Total Protein (6.3-8.2) g/dL Albumin (3.5-5.0) g/dL Assessment and Plan Plan: Acute hypoxic respiratory failure requiring mechanical ventilation Severe refractory Shock, resolved Delirium tremens New pulmonary edema and pleural effusions Right lower lobe atelectasis, aspiration event Severe metabolic acidosis, anion gap with mixed respiratory acidosis Severe hyperkalemia Acute renal failure, requiring hemodialysis Rhabdomyolysis Lactic acidosis Possible seizure activity Hypomagnesemia Shock liver History of opiate and alcohol abuse Active tobacco abuse Continue full vent support, wean FiO2 as able, PEEP to 8 and FiO2 to 40% Sports bed with chest PT Discontinue Mucomyst Monitor labs IV fluids at 75 mL per hour Monitor urine output Ativan PRN seizure Antibiotics: Zosyn Monitor CPK Justin Neurology recommendations, EEG negative for seizure activity Pain control Hydralazine as needed Nephrology recommendations, 2 L fluid removal today with hemodialysis GI and DVT prophylaxis Continue tube feeds, multivitamin, thiamine, folate Will add beta krishna for heart rate and hypertension
[2016-09-13] MEDS: MULTIVITAMINS, THERA LIQUID 237 ML BOTTLE OG-TUBE SCH (12:19)
[2016-09-13] MEDS: THIAMINE 100 MG TAB OG-TUBE SCH (12:20)
[2016-09-13] MEDS: SODIUM CHLORIDE 0.9% 1,000 ML IV SCH (12:21)
[2016-09-13] MEDS: FOLIC ACID 1 MG TAB OG-TUBE SCH (12:21)
--- NOTE | 2016-09-13 12:40 | P.PN ---
Subjective This is a 40-year-old male seen in consultation because of acute kidney injury secondary to rhabdomyolysis and has been dialyzed. This morning he was dialyzed 2500 mL were taken off. During dialysis supposedly he desaturated requiring FiO2 be increased on percent. Still fully sedated as any attempt at weaning sedation results and tachycardia cardia and tachypnea. No urine output is documented. His history is as follows He came in with the syncope was intubated. He was severely hyperkalemic with potassium of 8.7 and a bicarb of 18 with positive drug screen for opiates serum alcohol level was 82 [place] was [address]. He remained anuric as of the last 24 hours. Objective - Vital Signs Vital signs: Vital Signs Temp 97.9 F 09/13/16 12:00 Pulse 79 09/13/16 12:00 Resp 16 09/13/16 12:00 BP 198/82 09/12/16 18:30 Pulse Ox 100 09/13/16 12:00 Intake & Output 09/12/16 09/13/16 09/13/16 18:59 06:59 18:59 Intake Total 8479.758 2704.452 694.211 Output Total 15 25 15 Balance 0100.975 7311.452 679.211 Weight 111.6 kg 112.9 kg Intake: IV 1050 1075 487.5 0.9 @ 75 900 975 375 Piperacillin-Tazobactam 3 50 12.5 .375 gm In Dextrose/Water 1 50ml.bag @ 12.5 mls/hr IVPB Q12H [facility] Rx#: [id number] levETIRAcetam IV 500 mg 100 100 100 In Sodium Chloride 0.9% 100 ml @ 400 mls/hr IVPB Q12HR [facility] Rx#:[id number] Intake, IV Titration 79.477 142.452 146.711 Amount Propofol 500 mg In Empty 79.477 142.452 146.711 Bag 1 bag @ Titrate IV . Q0M [facility] Rx#:[id number] Tube Feeding 240 540 60 Other 60 Output: Urine 15 25 15 Other: Voiding Method Indwelling Catheter Indwelling Catheter Indwelling Catheter # Voids 0 ABP, PAP, CO, CI - Last Documented Arterial Blood Pressure 116/57 On examination he is currently on 100% FiO2. Pupils are small and equal. Neck is supple. There is no JVP neck Lungs are clear to auscultation good air entry bilaterally Heart sounds are unremarkable for any murmur rub gallop Abdomen soft nondistended. Bowel sounds are diminished. No masses felt no ascites felt. Extremity exam reveals trace edema Neurologically obtunded and sedated - Labs CBC & Chem 7: 09/13/16 03:20 09/13/16 03:20 Labs: Abnormal Lab Results - Last 24 Hours (Table) 09/13/16 09/13/16 09/13/16 Range/Units 02:14 03:20 03:20 RBC 3.12 L (4.30-5.90) m/uL Hgb 9.8 L (13.0-17.5) gm/dL Hct 30.2 L (39.0-53.0) % Plt Count 68 L (150-450) k/uL Neutrophils # 8.7 H (1.3-7.7) k/uL Lymphocytes # 0.5 L (1.0-4.8) k/uL ABG pH (7.35-7.45) ABG pO2 (83-108) mmHg ABG HCO3 (21-25) mmol/L ABG Total CO2 (19-24) mmol/L ABG O2 Saturation (94-97) % Carbon Dioxide 17 L (22-30) mmol/L BUN 44 H (9-20) mg/dL Creatinine 8.60 H* (0.66-1.25) mg/dL POC Glucose (mg/dL) 137 H (75-99) mg/dL Calcium 7.0 L (8.4-10.2) mg/dL Phosphorus 8.7 H* (2.5-4.5) mg/dL Magnesium 2.4 H (1.6-2.3) mg/dL Total Bilirubin 2.6 H (0.2-1.3) mg/dL AST 473 H (17-59) U/L ALT 639 H (21-72) U/L Creatine Kinase 63853 H (55-170) U/L Total Protein 4.3 L (6.3-8.2) g/dL Albumin 2.3 L (3.5-5.0) g/dL 09/13/16 Range/Units 05:22 RBC (4.30-5.90) m/uL Hgb (13.0-17.5) gm/dL Hct (39.0-53.0) % Plt Count (150-450) k/uL Neutrophils # (1.3-7.7) k/uL Lymphocytes # (1.0-4.8) k/uL ABG pH 7.28 L (7.35-7.45) ABG pO2 156 H (83-108) mmHg ABG HCO3 16 L (21-25) mmol/L ABG Total CO2 18 L (19-24) mmol/L ABG O2 Saturation 99.0 H (94-97) % Carbon Dioxide (22-30) mmol/L BUN (9-20) mg/dL Creatinine (0.66-1.25) mg/dL POC Glucose (mg/dL) (75-99) mg/dL Calcium (8.4-10.2) mg/dL Phosphorus (2.5-4.5) mg/dL Magnesium (1.6-2.3) mg/dL Total Bilirubin (0.2-1.3) mg/dL AST (17-59) U/L ALT (21-72) U/L Creatine Kinase (55-170) U/L Total Protein (6.3-8.2) g/dL Albumin (3.5-5.0) g/dL Assessment and Plan Plan: Impression 1. ATN from rhabdomyolysis and on dialysis stable, currently on hemodialysis on a Sunday schedule no urine output. 2. Rhabdomyolysis with CPK is going down to 13,000 from 2110 and from greater than 32,000. Improving 3. Non-gap acidosis with bicarb 19, stable with a pH of 7.2H (bicarb of 17. This is predialysis. 4 Hyperkalemia resolved potassium is 4.3 5. When dependent respiratory failure on 50% FiO2. Unable to wean currently because of possible withdrawal symptoms from alcohol exam. 6. Hypocalcemia with calcium improved to improved to 7 from 6.5 from 6.1, albumin off 2.3 and therefore corrected calcium is 8.6 normal, and hyperphosphatemia secondary to rhabdomyolysis, phosphorus is up to 8.7.. 7. Possible CHF by chest x-ray Recommendation. 1. No changes in medications. We'll discontinue IV fluids because of the chest x-ray finding of congestive heart failure and increased FiO2 on vent. 2. Consult Dr. Jane regarding permacath as his right femoral Kang cannot be maintained for more than a few days. His renal function is expected to recover or several days and unlikely to be in the next few days. 3. We will watch his calcium and phosphorus and if necessary adjust medications and replace calcium if necessary. 4. Monitor calcium phosphorus potassium and CPK 5. Start calcium carbonate 500 mg elemental calcium 4 times a day via NG tube. 6. Ensure adequate nutritional support he needs about 1.5 g of protein per kilogram body weight
[2016-09-13] MEDS: PIPERACILLIN-TAZOBACTAM 3.375 GM in DEXTROSE/WATER 1 50ML.BAG IVPB SCH ×2 (12:41→23:50)
--- NOTE | 2016-09-13 16:46 | P.PN ---
Subjective Patient is evaluated in the intensive care unit where he remains on ventilatory support and sedated. Patient has been started on enteral feeding, which he is tolerating. Total bilirubin increased to 2.6. AST and ALT decreased to 473 and 639, respectively. Alkaline phosphatase normal. Afebrile. No evidence of leukocytosis. Objective - Vital Signs Vital signs: Vital Signs Temp 98.5 F 09/13/16 16:00 Pulse 97 09/13/16 16:00 Resp 16 09/13/16 16:00 BP 185/99 09/13/16 16:20 Pulse Ox 99 09/13/16 16:00 Intake & Output 09/12/16 09/13/16 09/13/16 18:59 06:59 18:59 Intake Total 5159.534 1931.452 1004.793 Output Total 15 25 15 Balance 0892.836 9934.452 989.793 Weight 111.6 kg 112.9 kg Intake: IV 1050 1075 645.0 0.9 @ 75 900 975 375 0.9 @ KVO 120 Piperacillin-Tazobactam 3 50 50.0 .375 gm In Dextrose/Water 1 50ml.bag @ 12.5 mls/hr IVPB Q12H [facility] Rx#: [id number] levETIRAcetam IV 500 mg 100 100 100 In Sodium Chloride 0.9% 100 ml @ 400 mls/hr IVPB Q12HR [facility] Rx#:[id number] Intake, IV Titration 79.477 142.452 239.793 Amount Propofol 500 mg In Empty 79.477 142.452 239.793 Bag 1 bag @ Titrate IV . Q0M [facility] Rx#:[id number] Tube Feeding 240 540 120 Other 60 Output: Urine 15 25 15 Other: Voiding Method Indwelling Catheter Indwelling Catheter Indwelling Catheter # Voids 0 ABP, PAP, CO, CI - Last Documented Arterial Blood Pressure 164/66 - Exam GENERAL: Pt sedated on ventilatory support. Appears in no acute distress. LUNGS: Breath sounds diminished to auscultation bilaterally. No wheezes, rales , or rhonchi. HEART: Heart S1, S2, no S3 or S4. Regular rate and rhythm. No murmurs, rubs or gallops. ABDOMEN: Soft, nontender, nondistended, normoactive bowel sounds. - Labs CBC & Chem 7: 09/13/16 03:20 09/13/16 03:20 Labs: Abnormal Lab Results - Last 24 Hours (Table) 09/13/16 09/13/16 09/13/16 Range/Units 02:14 03:20 03:20 RBC 3.12 L (4.30-5.90) m/uL Hgb 9.8 L (13.0-17.5) gm/dL Hct 30.2 L (39.0-53.0) % Plt Count 68 L (150-450) k/uL Neutrophils # 8.7 H (1.3-7.7) k/uL Lymphocytes # 0.5 L (1.0-4.8) k/uL ABG pH (7.35-7.45) ABG pO2 (83-108) mmHg ABG HCO3 (21-25) mmol/L ABG Total CO2 (19-24) mmol/L ABG O2 Saturation (94-97) % Carbon Dioxide 17 L (22-30) mmol/L BUN 44 H (9-20) mg/dL Creatinine 8.60 H* (0.66-1.25) mg/dL POC Glucose (mg/dL) 137 H (75-99) mg/dL Calcium 7.0 L (8.4-10.2) mg/dL Phosphorus 8.7 H* (2.5-4.5) mg/dL Magnesium 2.4 H (1.6-2.3) mg/dL Total Bilirubin 2.6 H (0.2-1.3) mg/dL AST 473 H (17-59) U/L ALT 639 H (21-72) U/L Creatine Kinase 94504 H (55-170) U/L Total Protein 4.3 L (6.3-8.2) g/dL Albumin 2.3 L (3.5-5.0) g/dL 09/13/16 Range/Units 05:22 RBC (4.30-5.90) m/uL Hgb (13.0-17.5) gm/dL Hct (39.0-53.0) % Plt Count (150-450) k/uL Neutrophils # (1.3-7.7) k/uL Lymphocytes # (1.0-4.8) k/uL ABG pH 7.28 L (7.35-7.45) ABG pO2 156 H (83-108) mmHg ABG HCO3 16 L (21-25) mmol/L ABG Total CO2 18 L (19-24) mmol/L ABG O2 Saturation 99.0 H (94-97) % Carbon Dioxide (22-30) mmol/L BUN (9-20) mg/dL Creatinine (0.66-1.25) mg/dL POC Glucose (mg/dL) (75-99) mg/dL Calcium (8.4-10.2) mg/dL Phosphorus (2.5-4.5) mg/dL Magnesium (1.6-2.3) mg/dL Total Bilirubin (0.2-1.3) mg/dL AST (17-59) U/L ALT (21-72) U/L Creatine Kinase (55-170) U/L Total Protein (6.3-8.2) g/dL Albumin (3.5-5.0) g/dL Assessment and Plan Plan: Impression: 1. Acute pancreatitis, present on admission, suspect secondary to EtOH abuse. 2. Increased liver enzymes, present on admission, suspect secondary to hypoperfusion, improving. Plan: Continue to monitor patient. Continue to monitor liver enzymes. Continue medical management. Patient is not a surgical candidate at this time. The above impression and plan have been discussed and directed by Dr. Figueroa. Solomon MANN acting as scribe for Dr. Figueroa.
[2016-09-13] MEDS: MORPHINE SULFATE 2 MG/ML SYRINGE IVP PRN (16:47)
[2016-09-13 17:49] LABS: Glucose,Whole Blood 91 mg/dL (75-99)
[2016-09-13] MEDS: CALCIUM CARBONATE LIQUID 500 MG/5 ML CUP PO SCH (17:54)
--- NOTE | 2016-09-13 20:14 | P.PN ---
Subjective This patient is a 40-year-old right-handed white male who was admitted just after being found unresponsive at his home. Patient was found to have evidence of acute hypoxic respiratory failure and was intubated and transferred to the intensive care unit yesterday. He was seen for neurology consultation yesterday and had evidence of severe anoxic encephalopathy. He remains on a Diprivan drip at this time. He underwent a venous Doppler ultrasound today which was negative for any evidence of DVT in the lower extremities. He did develop severe hyperkalemia and did require hemodialysis yesterday. He is seen by nephrology and will be scheduled for hemodialysis tomorrow. He has evidence of ATN secondary to rhabdomyolysis. His initial admission serum creatinine was elevated at 3.5. Patient remains on Diprivan drip. When he is weaned off of the Diprivan he is very agitated and restless. He was started on Keppra for possible seizure activity. We will be obtaining an EEG tomorrow for further evaluation. Patient likely has some degree of anoxic brain injury secondary to his acute respiratory failure. We will continue close neurological follow-up of this patient in the intensive care unit. According to the ICU nurse he has a extensive history of alcohol abuse drinking over 20 beers a day. Patient's girlfriend was seen today at bedside. She does collaborate his history of extensive alcohol abuse history in the past. 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 According to the girlfriend he had to go for breathalyzer test before owing to work. He also has had several episodes in which she is drunk at work. All this information was obtained from his girlfriend who was at his bedside today on rounds. We did update her on his overall prognosis at this time. According to the ICU nurse he was started on Ativan as a CIWA protocol. He did complete a routine EEG late this evening which was reviewed. EEG reveals fairly good brain activity with a background of 6-7 hertz. No epileptiform discharges were seen. Attempt to wean him off of Diprivan today was short-lived as he became agitated. His Keppra level did come back therapeutic at 14.2. We will continue him on his current dose of Keppra. Case was discussed at length at bedside yesterday in the ICU with the patient's girlfriend. Yesterday both of his parents were present and they were updated on his overall condition. Today his girlfriend is also at bedside. We did update her as well. Patient continues on sedation at this time and will try again weaning parameters tomorrow. The patient is being treated for acute pancreatitis which is felt to be secondary to his alcohol abuse. Liver enzymes are slowly improving. The patient remains intubated and sedated currently. He is receiving enteral feeding and is tolerating this well. His overall prognosis at this time remains very guarded. Objective - Vital Signs Vital signs: Vital Signs Temp 98.5 F 09/13/16 16:00 Pulse 101 H 09/13/16 18:00 Resp 16 09/13/16 18:00 BP 185/99 09/13/16 16:20 Pulse Ox 99 09/13/16 18:00 Intake & Output 09/12/16 09/13/16 09/13/16 18:59 06:59 18:59 Intake Total 0317.530 0087.452 1114.793 Output Total 15 25 15 Balance 5564.072 9216.452 1099.793 Weight 111.6 kg 112.9 kg Intake: IV 1050 1075 705.0 0.9 @ 75 900 975 375 0.9 @ KVO 180 Piperacillin-Tazobactam 3 50 50.0 .375 gm In Dextrose/Water 1 50ml.bag @ 12.5 mls/hr IVPB Q12H [facility] Rx#: [id number] levETIRAcetam IV 500 mg 100 100 100 In Sodium Chloride 0.9% 100 ml @ 400 mls/hr IVPB Q12HR [facility] Rx#:[id number] Intake, IV Titration 79.477 142.452 289.793 Amount Propofol 500 mg In Empty 79.477 142.452 289.793 Bag 1 bag @ Titrate IV . Q0M [facility] Rx#:[id number] Tube Feeding 240 540 120 Other 60 Output: Urine 15 25 15 Other: Voiding Method Indwelling Catheter Indwelling Catheter Indwelling Catheter # Voids 0 ABP, PAP, CO, CI - Last Documented Arterial Blood Pressure 128/56 - Exam Physical examination: PHYSICAL EXAMINATION: Patient is resting comfortably in bed. Patient currently intubated on the ventilator on Diprivan drip. VITAL SIGNS: Blood pressure is [128/56]. Heart rate is [101]. Respiration is [16 ]. Temperature is [98.5]. HEENT: Head is atraumatic, neck is supple, there were no carotid bruits. CHEST: Lungs are clear to auscultation and percussion. CARDIAC: S1, S2 normal rate and rhythm. There is no murmur. ABDOMEN: Soft and nontender. Bowel sounds are present. EXTREMITIES: There is no pedal edema. Peripheral pulses are present. Neurological examination: Patient intubated on the ventilator on Diprivan drip. Neurological examination is limited at this time. - Labs CBC & Chem 7: 09/13/16 03:20 09/13/16 03:20 Labs: Abnormal Lab Results - Last 24 Hours (Table) 09/13/16 09/13/16 09/13/16 Range/Units 02:14 03:20 03:20 RBC 3.12 L (4.30-5.90) m/uL Hgb 9.8 L (13.0-17.5) gm/dL Hct 30.2 L (39.0-53.0) % Plt Count 68 L (150-450) k/uL Neutrophils # 8.7 H (1.3-7.7) k/uL Lymphocytes # 0.5 L (1.0-4.8) k/uL ABG pH (7.35-7.45) ABG pO2 (83-108) mmHg ABG HCO3 (21-25) mmol/L ABG Total CO2 (19-24) mmol/L ABG O2 Saturation (94-97) % Carbon Dioxide 17 L (22-30) mmol/L BUN 44 H (9-20) mg/dL Creatinine 8.60 H* (0.66-1.25) mg/dL POC Glucose (mg/dL) 137 H (75-99) mg/dL Calcium 7.0 L (8.4-10.2) mg/dL Phosphorus 8.7 H* (2.5-4.5) mg/dL Magnesium 2.4 H (1.6-2.3) mg/dL Total Bilirubin 2.6 H (0.2-1.3) mg/dL AST 473 H (17-59) U/L ALT 639 H (21-72) U/L Creatine Kinase 50371 H (55-170) U/L Total Protein 4.3 L (6.3-8.2) g/dL Albumin 2.3 L (3.5-5.0) g/dL 09/13/16 Range/Units 05:22 RBC (4.30-5.90) m/uL Hgb (13.0-17.5) gm/dL Hct (39.0-53.0) % Plt Count (150-450) k/uL Neutrophils # (1.3-7.7) k/uL Lymphocytes # (1.0-4.8) k/uL ABG pH 7.28 L (7.35-7.45) ABG pO2 156 H (83-108) mmHg ABG HCO3 16 L (21-25) mmol/L ABG Total CO2 18 L (19-24) mmol/L ABG O2 Saturation 99.0 H (94-97) % Carbon Dioxide (22-30) mmol/L BUN (9-20) mg/dL Creatinine (0.66-1.25) mg/dL POC Glucose (mg/dL) (75-99) mg/dL Calcium (8.4-10.2) mg/dL Phosphorus (2.5-4.5) mg/dL Magnesium (1.6-2.3) mg/dL Total Bilirubin (0.2-1.3) mg/dL AST (17-59) U/L ALT (21-72) U/L Creatine Kinase (55-170) U/L Total Protein (6.3-8.2) g/dL Albumin (3.5-5.0) g/dL Assessment and Plan (1) Anoxic encephalopathy Status: Acute Code(s): G93.1 - ANOXIC BRAIN DAMAGE, NOT ELSEWHERE CLASSIFIED (2) Acute hyperkalemia Status: Acute Code(s): E87.5 - HYPERKALEMIA (3) Acute respiratory failure Status: Acute Code(s): J96.00 - ACUTE RESPIRATORY FAILURE, UNSP W HYPOXIA OR HYPERCAPNIA (4) Alcoholic hepatitis Status: Acute Code(s): K70.10 - ALCOHOLIC HEPATITIS WITHOUT ASCITES (5) Sepsis Status: Acute Code(s): A41.9 - SEPSIS, UNSPECIFIED ORGANISM Plan: This patient is a 40-year-old male currently in the intensive care unit ventilated and sedated at this time. Patient was admitted with acute hypoxic respiratory failure and delirium tremens. He has an extensive alcohol abuse history in the past. He is currently on Keppra for possible seizure disorder. He was having myoclonic seizures felt to be secondary to hypoxic anoxic encephalopathy. He does underwent a routine EEG which revealed moderate slowing. There is no epileptiform discharges seen. His Keppra level has been therapeutic. Patient is also being treated for acute pancreatitis. This is felt to be secondary to his alcohol abuse. He is receiving enteral feeding and is tolerating this well. Patient to continue on thiamine and folate. Patient was off of sedation yesterday for 6 hours. He did require a restart of the Diprivan due to agitation and hypertension. He has been on Diprivan throughout the day. Attempts will be made again tomorrow to see if he may benefit from a drug holiday. Patient's girlfriend was at bedside and she was updated today on his overall condition. His neurologically remained stable at this time. Most all of his current findings are related to his significant alcohol abuse history. We will continue to monitor his progress closely in the intensive care unit. His overall prognosis at this time remains very guarded.
[2016-09-13] MEDS: LABETALOL 100 MG TAB OG-TUBE SCH (20:28)
[2016-09-14] MEDS: ALBUTEROL NEBULIZED 2.5 MG/3 ML INHALATION SCH ×7 (00:05→23:11)
[2016-09-14] MEDS: PROPOFOL 500 MG in EMPTY BAG 1 BAG IV SCH ×7 (01:26→13:44)
[2016-09-14 01:29] LABS: Glucose,Whole Blood 99 mg/dL (75-99)
[2016-09-14] MEDS: LORazepam 2 MG/ML SYRINGE IV PRN ×2 (04:40→08:15)
[2016-09-14 04:56] LABS: Basophils % (A) 0 %; CHCM 33.4; Eosinophils # (A) 0.2 k/uL (0-0.7); Eosinophils % (A) 2 %; HCT 28.4 % (39.0-53.0); HDW 2.82; HGB 9.6 gm/dL (13.0-17.5); Luc # (Auto) 0.26; Luc % (Auto) 3; Lymphocytes # (A) 0.4 k/uL (1.0-4.8); Lymphocytes % (A) 5 %; MCH 32.8 pg (25.0-35.0); MCV 96.4 fL (80.0-100.0); Mean Platelet Volume 8.5; Monocytes # (A) 0.6 k/uL (0-1.0); Monocytes % (A) 7 %; Neutrophils # (A) 6.3 k/uL (1.3-7.7); Neutrophils % (A) 81 %; RBC 2.94 m/uL (4.30-5.90); RDW 13.4 % (11.5-15.5); WBC 7.7 k/uL (3.8-10.6); WBC (Perox) 8.11
[2016-09-14 05:12] LABS: ABG Base Excess -4.3 mmol/L; ABG HCO3 21 mmol/L (21-25); ABG PCO2 42 mmHg (35-45); ABG PH 7.32 (7.35-7.45); ABG PO2 107 mmHg (83-108); ABG TCO2 22 mmol/L (19-24)
[2016-09-14 05:17] LABS: INR 0.9 (<1.1); Prothrombin Time 9.7 sec (9.0-12.0)
[2016-09-14 05:18] LABS: Calcium 7.2 mg/dL (8.4-10.2); Magnesium 2.2 mg/dL (1.6-2.3); Phosphorous 6.9 mg/dL (2.5-4.5); Potassium 3.8 mmol/L (3.5-5.1); Total Bilirubin 2.6 mg/dL (0.2-1.3); Total Protein 4.1 g/dL (6.3-8.2)
--- NOTE | 2016-09-14 07:14 | XR ---
EXAMINATION TYPE: XR chest 1V portable DATE OF EXAM: 09/14/2016 6:48 AM Comparison: 09/13/2016 Clinical History: 40 year-old male tube placement Findings: ET tube tip is at the level of the medial clavicular heads, 8.1 cm from the leila. NG tube courses b elow the diaphragm. Heart remains upper limits of normal in size. Diffuse vascular prominence persists but shows some int erval improvement as do bibasilar opacities. Impression: 1. Suspect improving CHF with residual pulmonary vascular congestion and residual small right pleural effusion with bibasilar patchy atelectasis and/or consolidation. 2. ET tube tip 8.1 cm from the leila at the level of the medial clavicular heads. It could be advanc ed by 3 cm if desired.
--- NOTE | 2016-09-14 08:09 | P.PN ---
Subjective This is a 40-year-old male seen in consultation because of acute kidney injury secondary to rhabdomyolysis and has been dialyzed. He was dialyzed yesterday 2500 mL were taken off. He has a femoral Kang. A permacath is being planned today During dialysis supposedly he desaturated requiring FiO2 be increased on percent. As of this morning he is on 50% FiO2 stable, Still fully sedated as any attempt at weaning sedation results and tachycardia cardia and tachypnea. No urine output is documented. His CPK is coming down, he down to 7749 today. His calcium is improving coming up to 7.2 and phosphorus down to 6.9 on calcium carbonate via NG tube. His history is as follows He came in with the syncope was intubated. He was severely hyperkalemic with potassium of 8.7 and a bicarb of 18 with positive drug screen for opiates serum alcohol level was 82 CPK was 22885. He remained anuric as of the last 24 hours. Objective - Vital Signs Vital signs: Vital Signs Temp 98.3 F 09/14/16 04:00 Pulse 78 09/14/16 07:48 Resp 15 09/14/16 07:00 BP 185/99 09/13/16 16:20 Pulse Ox 100 09/14/16 07:00 Intake & Output 09/13/16 09/14/16 09/14/16 18:59 06:59 18:59 Intake Total 1114.793 855.097 20 Output Total 15 Balance 1099.793 855.097 20 Weight 109.2 kg Intake: IV 705.0 400.0 20 0.9 @ 75 375 0.9 @ KVO 180 250 20 Piperacillin-Tazobactam 3 50.0 50.0 .375 gm In Dextrose/Water 1 50ml.bag @ 12.5 mls/hr IVPB Q12H [facility] Rx#: [id number] levETIRAcetam IV 500 mg 100 100 In Sodium Chloride 0.9% 100 ml @ 400 mls/hr IVPB Q12HR [facility] Rx#:[id number] Intake, IV Titration 289.793 305.097 Amount Propofol 500 mg In Empty 289.793 305.097 Bag 1 bag @ Titrate IV . Q0M [facility] Rx#:[id number] Tube Feeding 120 150 Output: Urine 15 Other: Voiding Method Indwelling Catheter Incontinent ABP, PAP, CO, CI - Last Documented Arterial Blood Pressure 121/52 On examination he is sedated, on ventilator 50% FiO2. Vital signs are stable. Extremity exam no JVP noted but difficult exam. Lungs are clear to auscultation fair air entry bilaterally on the vent. Heart sounds are unremarkable no murmur rub gallop. Monitor showing normal sinus rhythm. Abdomen is soft nondistended Extremities exam was mild edema. There is no evidence of any compartment syndrome. Neurologically as mentioned above sedated and obtunded - Labs CBC & Chem 7: 09/14/16 04:30 09/14/16 04:30 Labs: Abnormal Lab Results - Last 24 Hours (Table) 09/14/16 09/14/16 09/14/16 Range/Units 04:30 04:30 04:44 RBC 2.94 L (4.30-5.90) m/uL Hgb 9.6 L (13.0-17.5) gm/dL Hct 28.4 L (39.0-53.0) % Plt Count 74 L (150-450) k/uL Lymphocytes # 0.4 L (1.0-4.8) k/uL ABG pH 7.32 L (7.35-7.45) ABG O2 Saturation 98.0 H (94-97) % Carbon Dioxide 20 L (22-30) mmol/L BUN 44 H (9-20) mg/dL Creatinine 7.50 H* (0.66-1.25) mg/dL Calcium 7.2 L (8.4-10.2) mg/dL Phosphorus 6.9 H (2.5-4.5) mg/dL Total Bilirubin 2.6 H (0.2-1.3) mg/dL AST 307 H (17-59) U/L ALT 442 H (21-72) U/L Alkaline Phosphatase 140 H (38-126) U/L Creatine Kinase 7749 H (55-170) U/L Total Protein 4.1 L (6.3-8.2) g/dL Albumin 2.1 L (3.5-5.0) g/dL Assessment and Plan Plan: Impression 1. ATN from rhabdomyolysis and on dialysis stable, currently on hemodialysis on a Sunday schedule no urine output. Kang catheter in his groin 2. Rhabdomyolysis with CPK is going down to 7749, down from 13,000 from 2110 and from greater than 32,000. Improving 3. Non-gap acidosis with bicarb 19, stable with a pH of 7.32, serum bicarb of 20. 5. When dependent respiratory failure on 50% FiO2. Unable to wean currently because of possible withdrawal symptoms from alcohol exam. 6. Hypocalcemia with calcium improved to improved to 7.1 from 6.5 from 6.1, albumin off 2.1 and therefore corrected calcium is 8.2 nearly normal, and hyperphosphatemia secondary to rhabdomyolysis, phosphorus is down to 6.9 after starting on calcium carbonate binder from 8.7.. 7. Possible CHF by chest x-ray Recommendation. 1. Maintain current dialysis schedule on a Sunday therefore he 'll be dialyzed tomorrow. 2. Monitor calcium phosphorus. 3. Ensure adequate nutritional support. 4. Proceed with a permacath as there is no urine output and he will need dialysis at least for a few days. 5. Monitor bicarb, expected to improve with dialysis, further calcium carbonate will provide some bicarbonate
[2016-09-14] MEDS ORDERED: LIDOCAINE 2%-EPI 1:100,000 20 ML VIAL SQ ONE (08:39)
--- NOTE | 2016-09-14 09:09 | P.PCN ---
Date of Procedure: 09/14/16 Preoperative Diagnosis: acute kidney injury; hemodialysis dependent renal failure Postoperative Diagnosis: same Procedure(s) Performed: tunneled right internal jugular dialysis catheter Surgeon: Leni Fonseca Estimated Blood Loss (ml): 50 Condition: stable Disposition: ICU Indications for Procedure: acute kidney injury; hemodialysis dependent renal failure Description of Procedure: After sterile prep and drape of the right neck, the area overlying the right right internal jugular vein was infiltrated with a solution of 1% lidocaine with epinephrine. Using ultrasound guidance, a 21-gauge needle was placed into the right internal jugular vein and an 018 wire was threaded into the superior vena cava. Placement was confirmed with fluoroscopy. A sheath and a core were threaded over the wire, the wire and core were removed, and an 035 J-wire was threaded into the superior vena cava and then into the inferior vena cava. A tract onto the anterior chest wall was then infiltrated with a solution of 1% lidocaine with epinephrine and a tunneled dialysis catheter was threaded through the tunnel taking care not to twist it. The track into the superior vena cava was then sequentially dilated under fluoroscopy. A dilator and sheath were placed a wire and dilator were removed and the tunnel dialysis catheter was inserted into the peel-away sheath and the peel-away sheath was removed. Both ports aspirated and flushed with heparinized saline satisfactorily. The ports were capped with a solution of 1000 units of heparin per cc. The incisions were closed with a 4-0 Vicryl for subcutaneous tissues and a 3-0 nylon to skin. Sterile dressings, needle and sponge counts correct. Patient tolerated the procedure well and was returned to ICU in satisfactory condition.
[2016-09-14] MEDS: CALCIUM CARBONATE LIQUID 500 MG/5 ML CUP PO SCH ×3 (09:57→19:57)
[2016-09-14] MEDS: ARTIFICIAL TEARS-HYPROMELLOSE DROPS 15 ML BTL BOTH EYES SCH ×4 (09:57→21:00)
[2016-09-14] MEDS: CHLORHEXIDINE GLUCONATE 15 ML CUP MUCOUS MEM SCH ×2 (09:57→20:02)
[2016-09-14] MEDS: HEPARIN SODIUM,PORCINE 5,000 UNIT/ML 1 ML VIAL SQ SCH ×2 (09:57→19:52)
[2016-09-14] MEDS: levETIRAcetam IV 500 MG in SODIUM CHLORIDE 0.9% 100 ML IVPB SCH ×2 (09:58→21:00)
[2016-09-14] MEDS: PANTOPRAZOLE 40 MG/10 ML VIAL IV SCH (09:58)
[2016-09-14] MEDS: LABETALOL 100 MG TAB OG-TUBE SCH ×2 (09:58→20:02)
--- NOTE | 2016-09-14 10:12 | XR ---
EXAMINATION TYPE: XR chest 1V confirm line placement DATE OF EXAM: 09/14/2016 10:01 AM COMPARISON: Earlier today HISTORY: 40-year-old male status post tunnel dialysis catheter TECHNIQUE: Single frontal view of the chest is obtained. FINDINGS: Stable high positioning of the ET tube tip at the level of the medial clavicular heads. NG tube cours es below the diaphragm. New right-sided double-lumen hemodialysis catheter with tip similar upper rig ht atrium. Heart remains upper limits of normal in size. Mild interstitial prominence similar to prior with cont inued right basilar opacity. IMPRESSION: 1. Right-sided double-lumen hemodialysis catheter tips in the upper right atrium. 2. Similar residual pulmonary vascular congestion. 3. Continued small right pleural effusion with adjacent atelectasis and/or consolidation. 4. Stable high positioning of the ET tube.
[2016-09-14 12:04] LABS: Glucose,Whole Blood 90 mg/dL (75-99)
--- NOTE | 2016-09-14 14:35 | P.PN ---
Subjective Principal diagnosis: Delirium tremens Patient seen and examined in the ICU with family at bedside. Sedation has not been lightened today due to continued tremors. The patient also became hypertensive and tachycardic. Patient has been hemodynamically stable. A permacath was placed this morning. Patient remains anuric. Objective - Vital Signs Vital signs: Vital Signs Temp 98.9 F 09/14/16 12:00 Pulse 88 09/14/16 14:00 Resp 16 09/14/16 14:00 BP 185/99 09/13/16 16:20 Pulse Ox 100 09/14/16 14:00 Intake & Output 09/13/16 09/14/16 09/14/16 18:59 06:59 18:59 Intake Total 1114.793 855.097 427.618 Output Total 15 0 Balance 1099.793 855.097 427.618 Weight 109.2 kg 109.2 kg Intake: IV 705.0 400.0 160 0.9 @ 75 375 0.9 @ KVO 180 250 160 Piperacillin-Tazobactam 3 50.0 50.0 .375 gm In Dextrose/Water 1 50ml.bag @ 12.5 mls/hr IVPB Q12H [facility] Rx#: [id number] levETIRAcetam IV 500 mg 100 100 In Sodium Chloride 0.9% 100 ml @ 400 mls/hr IVPB Q12HR [facility] Rx#:[id number] Intake, IV Titration 289.793 305.097 147.618 Amount Propofol 500 mg In Empty 289.793 305.097 147.618 Bag 1 bag @ Titrate IV . Q0M [facility] Rx#:[id number] Tube Feeding 120 150 120 Output: Urine 15 0 Other: Voiding Method Indwelling Catheter Incontinent Incontinent ABP, PAP, CO, CI - Last Documented Arterial Blood Pressure 141/63 - Exam Gen: sedated on vent CV: RRR, s1/s2 Lungs: CTAB, no w/r/r Abd: soft, NT/ND, +BS Ext: ++ edema - Labs CBC & Chem 7: 09/14/16 04:30 09/14/16 04:30 Labs: Abnormal Lab Results - Last 24 Hours (Table) 09/14/16 09/14/16 09/14/16 Range/Units 04:30 04:30 04:44 RBC 2.94 L (4.30-5.90) m/uL Hgb 9.6 L (13.0-17.5) gm/dL Hct 28.4 L (39.0-53.0) % Plt Count 74 L (150-450) k/uL Lymphocytes # 0.4 L (1.0-4.8) k/uL ABG pH 7.32 L (7.35-7.45) ABG O2 Saturation 98.0 H (94-97) % Carbon Dioxide 20 L (22-30) mmol/L BUN 44 H (9-20) mg/dL Creatinine 7.50 H* (0.66-1.25) mg/dL Calcium 7.2 L (8.4-10.2) mg/dL Phosphorus 6.9 H (2.5-4.5) mg/dL Total Bilirubin 2.6 H (0.2-1.3) mg/dL AST 307 H (17-59) U/L ALT 442 H (21-72) U/L Alkaline Phosphatase 140 H (38-126) U/L Creatine Kinase 7749 H (55-170) U/L Total Protein 4.1 L (6.3-8.2) g/dL Albumin 2.1 L (3.5-5.0) g/dL Assessment and Plan Plan: Acute hypoxic respiratory failure requiring mechanical ventilation Severe refractory Shock, resolved Delirium tremens New pulmonary edema and pleural effusions Right lower lobe atelectasis, aspiration event Severe metabolic acidosis, anion gap with mixed respiratory acidosis Severe hyperkalemia Acute renal failure, requiring hemodialysis Rhabdomyolysis Lactic acidosis Possible seizure activity Hypomagnesemia Shock liver History of opiate and alcohol abuse Active tobacco abuse Continue full vent support, wean FiO2 as able, PEEP to 8 and FiO2 to 40% Sports bed with chest PT Discontinue Mucomyst Monitor labs IV fluids at 75 mL per hour Monitor urine output Ativan PRN seizure Antibiotics: Zosyn Monitor CPK Ana Neurology recommendations, EEG negative for seizure activity Pain control Hydralazine as needed Nephrology recommendations, 2 L fluid removal today with hemodialysis GI and DVT prophylaxis Continue tube feeds, multivitamin, thiamine, folate Will add beta krishna for heart rate and hypertension Will try Precedex to hopefully wean and extubate patient soon. His BP and HR are an elevated when sedation is held. Advance ETT 3-4 cm.
[2016-09-14] MEDS ORDERED: DEXMEDETOMIDINE 400 MCG in SODIUM CHLORIDE 0.9% 100 ML IV SCH (15:00)
--- NOTE | 2016-09-14 15:25 | P.PN ---
Subjective 40-year-old being seen in the ICU with the attending. Family at the bedside. Patients being followed by multiple consulting physicians. All recommendations reviewed noted and appreciated. Was noted patient to become tachycardic heart rate up with an elevated blood pressure. Permacath was also placed this morning. In anticipation for hemodialysis dependent renal failure Objective - Vital Signs Vital signs: Vital Signs Temp 98.9 F 09/14/16 12:00 Pulse 88 09/14/16 14:00 Resp 16 09/14/16 14:00 BP 185/99 09/13/16 16:20 Pulse Ox 100 09/14/16 14:00 Intake & Output 09/13/16 09/14/16 09/14/16 18:59 06:59 18:59 Intake Total 1114.793 855.097 427.618 Output Total 15 0 Balance 1099.793 855.097 427.618 Weight 109.2 kg 109.2 kg Intake: IV 705.0 400.0 160 0.9 @ 75 375 0.9 @ KVO 180 250 160 Piperacillin-Tazobactam 3 50.0 50.0 .375 gm In Dextrose/Water 1 50ml.bag @ 12.5 mls/hr IVPB Q12H [facility] Rx#: [id number] levETIRAcetam IV 500 mg 100 100 In Sodium Chloride 0.9% 100 ml @ 400 mls/hr IVPB Q12HR [facility] Rx#:[id number] Intake, IV Titration 289.793 305.097 147.618 Amount Propofol 500 mg In Empty 289.793 305.097 147.618 Bag 1 bag @ Titrate IV . Q0M [facility] Rx#:[id number] Tube Feeding 120 150 120 Output: Urine 15 0 Other: Voiding Method Indwelling Catheter Incontinent Incontinent ABP, PAP, CO, CI - Last Documented Arterial Blood Pressure 141/63 - Exam Physical exam 40-year-old intubated vent support sedated FiO2 of 50%. Lungs diminished at the bases no wheezing noted Heart S1-S2 audible and regular no murmur Abdomen flat nontender indwelling Guzman catheter in place nutritional supplements with tube feeds in progress Extremities trace edema noted - Labs CBC & Chem 7: 09/14/16 04:30 09/14/16 04:30 Labs: Abnormal Lab Results - Last 24 Hours (Table) 09/14/16 09/14/16 09/14/16 Range/Units 04:30 04:30 04:44 RBC 2.94 L (4.30-5.90) m/uL Hgb 9.6 L (13.0-17.5) gm/dL Hct 28.4 L (39.0-53.0) % Plt Count 74 L (150-450) k/uL Lymphocytes # 0.4 L (1.0-4.8) k/uL ABG pH 7.32 L (7.35-7.45) ABG O2 Saturation 98.0 H (94-97) % Carbon Dioxide 20 L (22-30) mmol/L BUN 44 H (9-20) mg/dL Creatinine 7.50 H* (0.66-1.25) mg/dL Calcium 7.2 L (8.4-10.2) mg/dL Phosphorus 6.9 H (2.5-4.5) mg/dL Total Bilirubin 2.6 H (0.2-1.3) mg/dL AST 307 H (17-59) U/L ALT 442 H (21-72) U/L Alkaline Phosphatase 140 H (38-126) U/L Creatine Kinase 7749 H (55-170) U/L Total Protein 4.1 L (6.3-8.2) g/dL Albumin 2.1 L (3.5-5.0) g/dL Assessment and Plan Plan: Impression Present on admission acute hypoxic respiratory failure on vent support multifactorial Present on admission severely hyperkalemic potassium 8.7 Present on admission urine drug screen positive for opiates Polysubstance of drug abuse Suspect anoxic brain injury Present on admission acute kidney injury anion gap metabolic acidosis due to acute kidney injury with lactic acidosis Active tobacco abuse Possible seizure activity Right lower lobe atelectasis with an aspiration event Severe refractory shock resolved Present on admission Rhabdomyolysis Lactic acidosis History of a depressive disorder nonspecified on Lexapro at home Present on admission Hypomagnesemia with elevated potassium hyperkalemic Present on admission acute alcohol intoxication History of chronic alcoholism daily consumption Present on Admission elevated lipase amylase AST ALT suspect acute pancreatitis due to chronic alcoholism Plan Scheduled permacath today in anticipation of needing dialysis Continue with recommendations from the ostrich farm worker for ICU management Pulmonary for vent management Continue recommendations by nephrology defer to Monitor electrolytes addressed per protocol on the ICU DVT and GI prophylaxis Continue full vent support wean FiO2 as tolerated per pulmonology's recommendations IV fluid at 75 an hour Per nephrology schedule dialysis on the 13 September Continue recommendations from all consulting physicians defer to Family updated on plan of care treatment questions answered The above dictated assessment and findings were discussed with dr daryl Dover and the plan of care have been dictated as directed. Pavithra Hameed nurse practitioner acting as a scribe for dr brito
[2016-09-14] MEDS: PIPERACILLIN-TAZOBACTAM 3.375 GM in DEXTROSE/WATER 1 50ML.BAG IVPB SCH (15:40)
[2016-09-14 18:09] LABS: Glucose,Whole Blood 88 mg/dL (75-99)
--- NOTE | 2016-09-14 18:31 | P.PN ---
Subjective This patient is a 40-year-old male who is being followed in the intensive care unit after having an episode of unresponsiveness and acute encephalopathy. Patient is now being treated for acute renal failure. His serum creatinine remains elevated today at 7.5. He is being followed by nephrology and is undergoing hemodialysis. He had a permacath placement today and will have hemodialysis procedure done tomorrow. He has a long-standing history of alcohol abuse and is being treated for delirium tremens. 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 His last Keppra level was therapeutic. We will recheck his Keppra level tomorrow. He did undergo routine EEG which failed to reveal any evidence for active seizure discharge. The patient did develop some tachycardia and elevated blood pressure earlier today. Pulmonary intensive is has made some changes and there going to try and wean him off of the Diprivan today. The patient remains anuric. As noted he will undergo hemodialysis tomorrow. Hopefully once he is extubated we will have a better chance to fully assess his mental status. We will continue close neurological follow-up of this patient in the intensive care unit. Case was discussed at bedside with several family members. All their questions were answered. His overall prognosis at this time remains guarded. Objective - Vital Signs Vital signs: Vital Signs Temp 98.9 F 09/14/16 12:00 Pulse 84 09/14/16 16:46 Resp 16 09/14/16 15:30 BP 185/99 09/13/16 16:20 Pulse Ox 97 09/14/16 15:30 Intake & Output 09/13/16 09/14/16 09/14/16 18:59 06:59 18:59 Intake Total 1114.793 855.097 737.618 Output Total 15 0 Balance 1099.793 855.097 737.618 Weight 109.2 kg 109.2 kg Intake: IV 705.0 400.0 330 0.9 @ 75 375 0.9 @ KVO 180 250 180 Piperacillin-Tazobactam 3 50.0 50.0 50 .375 gm In Dextrose/Water 1 50ml.bag @ 12.5 mls/hr IVPB Q12H [facility] TO [facility] Rx#: [id number] levETIRAcetam IV 500 mg 100 100 100 In Sodium Chloride 0.9% 100 ml @ 400 mls/hr IVPB Q12HR [facility] Rx#:[id number] Intake, IV Titration 289.793 305.097 197.618 Amount Propofol 500 mg In Empty 289.793 305.097 197.618 Bag 1 bag @ Titrate IV . Q0M [facility] Rx#:[id number] Tube Feeding 120 150 210 Output: Urine 15 0 Other: Voiding Method Indwelling Catheter Incontinent Incontinent ABP, PAP, CO, CI - Last Documented Arterial Blood Pressure 116/60 - Exam Physical examination: PHYSICAL EXAMINATION: Patient is resting comfortably in bed. Patient currently intubated on the ventilator on Diprivan drip. VITAL SIGNS: Blood pressure is [116/60]. Heart rate is [87]. Respiration is [16] . Temperature is [98.9]. HEENT: Head is atraumatic, neck is supple, there were no carotid bruits. CHEST: Lungs are clear to auscultation and percussion. CARDIAC: S1, S2 normal rate and rhythm. There is no murmur. ABDOMEN: Soft and nontender. Bowel sounds are present. EXTREMITIES: There is no pedal edema. Peripheral pulses are present. Neurological examination: Patient intubated on the ventilator on Diprivan drip which is being weaned off today. Neurological examination is limited at this time. - Labs CBC & Chem 7: 09/14/16 04:30 09/14/16 04:30 Labs: Abnormal Lab Results - Last 24 Hours (Table) 09/14/16 09/14/16 09/14/16 Range/Units 04:30 04:30 04:44 RBC 2.94 L (4.30-5.90) m/uL Hgb 9.6 L (13.0-17.5) gm/dL Hct 28.4 L (39.0-53.0) % Plt Count 74 L (150-450) k/uL Lymphocytes # 0.4 L (1.0-4.8) k/uL ABG pH 7.32 L (7.35-7.45) ABG O2 Saturation 98.0 H (94-97) % Carbon Dioxide 20 L (22-30) mmol/L BUN 44 H (9-20) mg/dL Creatinine 7.50 H* (0.66-1.25) mg/dL Calcium 7.2 L (8.4-10.2) mg/dL Phosphorus 6.9 H (2.5-4.5) mg/dL Total Bilirubin 2.6 H (0.2-1.3) mg/dL AST 307 H (17-59) U/L ALT 442 H (21-72) U/L Alkaline Phosphatase 140 H (38-126) U/L Creatine Kinase 7749 H (55-170) U/L Total Protein 4.1 L (6.3-8.2) g/dL Albumin 2.1 L (3.5-5.0) g/dL Assessment and Plan (1) Anoxic encephalopathy Status: Acute Code(s): G93.1 - ANOXIC BRAIN DAMAGE, NOT ELSEWHERE CLASSIFIED (2) Acute hyperkalemia Status: Acute Code(s): E87.5 - HYPERKALEMIA (3) Acute respiratory failure Status: Acute Code(s): J96.00 - ACUTE RESPIRATORY FAILURE, UNSP W HYPOXIA OR HYPERCAPNIA (4) Alcoholic hepatitis Status: Acute Code(s): K70.10 - ALCOHOLIC HEPATITIS WITHOUT ASCITES (5) Sepsis Status: Acute Code(s): A41.9 - SEPSIS, UNSPECIFIED ORGANISM Plan: This patient is a 40-year-old male who remains intubated on the ventilator with acute hypoxic respiratory failure. He is being slowly weaned off of Diprivan today. He had a permacath placement today for hemodialysis procedure to be done tomorrow. His serum creatinine today is 7.5. He will undergo hemodialysis tomorrow nephrology is following the patient closely. Patient has a history of alcohol abuse. He is being treated for underlying delirium tremens. He is to continue on Keppra at this time for anoxic myoclonus. We will be rechecking a Keppra blood level tomorrow for this patient. Multiple specialists are following the patient in the intensive care unit. We will await further recommendations. Pulmonary medicine has placed the patient on Precedex and is going to try to extubate the patient soon. His overall prognosis at this time remains very guarded.
[2016-09-14] MEDS: DEXMEDETOMIDINE 400 MCG in SODIUM CHLORIDE 0.9% 100 ML IV SCH (19:00)
[2016-09-14] MEDS: THIAMINE 100 MG TAB OG-TUBE SCH (19:51)
[2016-09-14] MEDS: MULTIVITAMINS, THERA LIQUID 237 ML BOTTLE OG-TUBE SCH (19:51)
[2016-09-14] MEDS: FOLIC ACID 1 MG TAB OG-TUBE SCH (19:51)
[2016-09-15] MEDS: DEXMEDETOMIDINE 400 MCG in SODIUM CHLORIDE 0.9% 100 ML IV SCH ×2 (00:48→08:58)
[2016-09-15] MEDS: HEPARIN SODIUM,PORCINE 5,000 UNIT/ML 1 ML VIAL SQ SCH ×4 (00:49→23:43)
[2016-09-15] MEDS: PIPERACILLIN-TAZOBACTAM 3.375 GM in DEXTROSE/WATER 1 50ML.BAG IVPB SCH ×3 (00:53→23:43)
[2016-09-15 02:17] LABS: Glucose,Whole Blood 105 mg/dL (75-99)
[2016-09-15] MEDS: hydrALAZINE HCL 20 MG/ML 1 ML VIAL IVP PRN ×2 (03:14→23:54)
[2016-09-15] MEDS: ALBUTEROL NEBULIZED 2.5 MG/3 ML INHALATION SCH ×6 (03:21→23:41)
[2016-09-15] MEDS: LORazepam 2 MG/ML SYRINGE IV PRN ×5 (03:48→22:53)
[2016-09-15 04:48] LABS: ABG Base Excess -8.2 mmol/L; ABG HCO3 17 mmol/L (21-25); ABG PCO2 35 mmHg (35-45); ABG PH 7.31 (7.35-7.45); ABG PO2 127 mmHg (83-108); ABG TCO2 18 mmol/L (19-24)
[2016-09-15 04:48] LABS: Basophils % (A) 0 %; CH 31.8; CHCM 33.1; Eosinophils # (A) 0.1 k/uL (0-0.7); Eosinophils % (A) 2 %; HCT 30.2 % (39.0-53.0); HDW 2.89; HGB 9.6 gm/dL (13.0-17.5); Luc # (Auto) 0.32; Luc % (Auto) 4; Lymphocytes # (A) 0.4 k/uL (1.0-4.8); Lymphocytes % (A) 5 %; MCH 30.9 pg (25.0-35.0); MCHC 31.9 g/dL (31.0-37.0); MCV 96.9 fL (80.0-100.0); Monocytes # (A) 0.7 k/uL (0-1.0); Monocytes % (A) 9 %; Neutrophils # (A) 6.1 k/uL (1.3-7.7); Neutrophils % (A) 80 %; RBC 3.11 m/uL (4.30-5.90); RDW 13.6 % (11.5-15.5); WBC 7.6 k/uL (3.8-10.6)
[2016-09-15 04:49] LABS: ABG Oxygen Saturation 98.6 % (94-97)
[2016-09-15 05:16] LABS: INR 0.9 (<1.1); Partial Thromboplastin Time 24.9 sec (22.0-30.0); Prothrombin Time 9.4 sec (9.0-12.0)
[2016-09-15 05:23] LABS: Calcium 8.3 mg/dL (8.4-10.2); Magnesium 2.5 mg/dL (1.6-2.3); Potassium 4.3 mmol/L (3.5-5.1); Total Bilirubin 3.6 mg/dL (0.2-1.3); Total Protein 4.9 g/dL (6.3-8.2)
[2016-09-15 05:37] LABS: Phosphorous 9.3 mg/dL (2.5-4.5)
[2016-09-15 06:17] LABS: Glucose,Whole Blood 107 mg/dL (75-99)
--- NOTE | 2016-09-15 07:39 | XR ---
EXAMINATION TYPE: XR chest 1V portable DATE OF EXAM: 09/15/2016 6:33 AM COMPARISON: 09/14/2016 HISTORY: SOB, Follow Up FINDINGS: Indwelling tubes and catheters are unchanged. No change in right basilar opacities. Stable appearance of the cardio-mediastinal structures at this time. Pleural effusion unchanged. IMPRESSION: 1. Stable portable chest. Clinical correlation and follow up until resolution is recommended.
--- NOTE | 2016-09-15 08:19 | P.PN ---
Subjective This is a 40-year-old male seen in consultation because of acute kidney injury secondary to rhabdomyolysis and has been dialyzed. He is on a Sunday schedule now. He is tolerating 2500 mL ultrafiltration during dialysis as of day before yesterday. He has a femoral Kagn catheter. Frequent attempts at weaning have resulted in tachycardia and restlessness and therefore has been aborted. As of this morning he is on 50% FiO2 stable, Still fully sedated. No urine output is documented. His CPK is coming down, he down to 5627 today. His calcium is improvin coming up to 8.3 this morning and phosphorus is high at 9.3 His history is as follows He came in with the syncope was intubated. He was severely hyperkalemic with potassium of 8.7 and a bicarb of 18 with positive drug screen for opiates serum alcohol level was 82 CPK was [address]86. He remained anuric as of the last 24 hours. Objective - Vital Signs Vital signs: Vital Signs Temp 98.0 F 09/15/16 04:00 Pulse 78 09/15/16 07:58 Resp 16 09/15/16 07:00 BP 185/99 09/13/16 16:20 Pulse Ox 100 09/15/16 07:00 Intake & Output 09/14/16 09/15/16 09/15/16 18:59 06:59 18:59 Intake Total 827.618 611.659 20 Output Total 0 0 Balance 827.618 611.659 20 Weight 109.2 kg 108.2 kg Intake: IV 390 302.5 20 0.9 @ KVO 240 240 20 Piperacillin-Tazobactam 3 50 62.5 .375 gm In Dextrose/Water 1 50ml.bag @ 12.5 mls/hr IVPB Q12H [facility] Rx#: [id number] levETIRAcetam IV 500 mg 100 In Sodium Chloride 0.9% 100 ml @ 400 mls/hr IVPB Q12HR [facility] Rx#:[id number] Intake, IV Titration 197.618 129.159 Amount Dexmedetomidine 400 mcg 129.159 In Sodium Chloride 0.9% 100 ml @ Titrate IV .Q0M [facility] Rx#:[id number] Propofol 500 mg In Empty 197.618 Bag 1 bag @ Titrate IV . Q0M [facility] Rx#:[id number] Tube Feeding 240 180 Output: Urine 0 0 Other: Voiding Method Incontinent Incontinent # Voids 0 ABP, PAP, CO, CI - Last Documented Arterial Blood Pressure 109/59 On examination he remains sedated on the vent on 50% FiO2. HEENT exam no JVP noted. Pupils are equal. Lungs are clear to auscultation fair air entry bilaterally Heart sounds are unremarkable for any murmur rub gallop normal sinus rhythm. Abdomen is soft non-distended Extremity exam is fair amount of edema 1-2+ all over. Neurologically obtunded because of sedation - Labs CBC & Chem 7: 09/15/16 04:26 09/15/16 04:26 Labs: Abnormal Lab Results - Last 24 Hours (Table) 09/15/16 09/15/16 09/15/16 Range/Units 02:14 04:26 04:26 RBC 3.11 L (4.30-5.90) m/uL Hgb 9.6 L (13.0-17.5) gm/dL Hct 30.2 L (39.0-53.0) % Plt Count 92 L (150-450) k/uL Lymphocytes # 0.4 L (1.0-4.8) k/uL ABG pH (7.35-7.45) ABG pO2 (83-108) mmHg ABG HCO3 (21-25) mmol/L ABG Total CO2 (19-24) mmol/L ABG O2 Saturation (94-97) % Carbon Dioxide 17 L (22-30) mmol/L BUN 60 H (9-20) mg/dL Creatinine 9.50 H* (0.66-1.25) mg/dL Glucose 106 H (74-99) mg/dL POC Glucose (mg/dL) 105 H (75-99) mg/dL Calcium 8.3 L (8.4-10.2) mg/dL Phosphorus 9.3 H* (2.5-4.5) mg/dL Magnesium 2.5 H (1.6-2.3) mg/dL Total Bilirubin 3.6 H (0.2-1.3) mg/dL AST 245 H (17-59) U/L ALT 372 H (21-72) U/L Alkaline Phosphatase 252 H (38-126) U/L Creatine Kinase 5627 H (55-170) U/L Total Protein 4.9 L (6.3-8.2) g/dL Albumin 2.5 L (3.5-5.0) g/dL 09/15/16 09/15/16 Range/Units 04:40 06:16 RBC (4.30-5.90) m/uL Hgb (13.0-17.5) gm/dL Hct (39.0-53.0) % Plt Count (150-450) k/uL Lymphocytes # (1.0-4.8) k/uL ABG pH 7.31 L (7.35-7.45) ABG pO2 127 H (83-108) mmHg ABG HCO3 17 L (21-25) mmol/L ABG Total CO2 18 L (19-24) mmol/L ABG O2 Saturation 98.6 H (94-97) % Carbon Dioxide (22-30) mmol/L BUN (9-20) mg/dL Creatinine (0.66-1.25) mg/dL Glucose (74-99) mg/dL POC Glucose (mg/dL) 107 H (75-99) mg/dL Calcium (8.4-10.2) mg/dL Phosphorus (2.5-4.5) mg/dL Magnesium (1.6-2.3) mg/dL Total Bilirubin (0.2-1.3) mg/dL AST (17-59) U/L ALT (21-72) U/L Alkaline Phosphatase (38-126) U/L Creatine Kinase (55-170) U/L Total Protein (6.3-8.2) g/dL Albumin (3.5-5.0) g/dL Assessment and Plan Plan: Impression 1. ATN from rhabdomyolysis and on dialysis stable, currently on hemodialysis on a Sunday schedule no urine output. Kang catheter in his groin 2. Rhabdomyolysis with CPK is going down to 5627 from 7749, Improving 3. Non-gap acidosis with bicarb 17 and anion gap of 19. PTH is 7.31. Stable. Etiology is acute kidney injury 5. Ventilator dependent respiratory failure on 50% FiO2. Unable to wean currently because of possible withdrawal symptoms from alcohol exam. 6. Hypocalcemia with calcium improved to improved to 8.3. 7. Hyperphosphatemia worsening phosphorus because of immobilization of phosphorus from the rhabdomyolysis recovery. 7. Possible CHF by chest x-ray Recommendation. 1. Maintain current dialysis schedule on a Sunday therefore he 'll be dialyzed today. We'll attempt 3.5 L since of 2.5 L 2. Monitor calcium phosphorus. 3. Ensure adequate nutritional support. 4. Proceed with a permacath as there is no urine output and he will need dialysis at least for a few days. 5. Monitor bicarb, expected to improve with dialysis, 6. Increase calcium carbonate phosphate binder from 500-1 g 3 times a day via NG tube.
[2016-09-15] MEDS: ARTIFICIAL TEARS-HYPROMELLOSE DROPS 15 ML BTL BOTH EYES SCH ×4 (08:20→22:10)
[2016-09-15] MEDS: CHLORHEXIDINE GLUCONATE 15 ML CUP MUCOUS MEM SCH ×2 (08:20→19:45)
[2016-09-15] MEDS: LABETALOL 100 MG TAB OG-TUBE SCH ×2 (08:23→22:10)
[2016-09-15] MEDS: PANTOPRAZOLE 40 MG/10 ML VIAL IV SCH (08:23)
[2016-09-15] MEDS: levETIRAcetam IV 500 MG in SODIUM CHLORIDE 0.9% 100 ML IVPB SCH ×2 (08:51→22:10)
[2016-09-15] MEDS: MORPHINE SULFATE 2 MG/ML SYRINGE IVP PRN (10:26)
--- NOTE | 2016-09-15 10:53 | IR ---
EXAMINATION TYPE: IR cvc insert central tunneled DATE OF EXAM: 09/15/2016 8:48 AM COMPARISON: NONE HISTORY: Renal failure Fluoroscopy support supplied to the referring clinician. See dictated report from vascular surgery, 1.5 minutes fluoroscopy time supplied, 304 intraoperative C-arm images document the procedure
--- NOTE | 2016-09-15 11:51 | P.PN ---
Subjective Principal diagnosis: Respiratory failure Patient seen and examined with nursing staff at bedside. Patient has been off of Diprivan since yesterday. He was started on Precedex. The patient is following some commands. He is placed on spontaneous breathing trial and is doing very well. He has been hemodynamically stable. He does have intermittent hypertension when agitated. Plan for hemodialysis today. Objective - Vital Signs Vital signs: Vital Signs Temp 97.7 F 09/15/16 08:00 Pulse 99 09/15/16 11:30 Resp 15 09/15/16 10:00 BP 185/99 09/13/16 16:20 Pulse Ox 100 09/15/16 10:00 Intake & Output 09/14/16 09/15/16 09/15/16 18:59 06:59 18:59 Intake Total 827.618 611.659 210.913 Output Total 0 0 5 Balance 827.618 611.659 205.913 Weight 109.2 kg 108.2 kg Intake: IV 390 302.5 170 0.9 @ KVO 240 240 70 Piperacillin-Tazobactam 3 50 62.5 .375 gm In Dextrose/Water 1 50ml.bag @ 12.5 mls/hr IVPB Q12H [facility] Rx#: [id number] levETIRAcetam IV 500 mg 100 100 In Sodium Chloride 0.9% 100 ml @ 400 mls/hr IVPB Q12HR [facility] Rx#:[id number] Intake, IV Titration 197.618 129.159 40.913 Amount Dexmedetomidine 400 mcg 129.159 40.913 In Sodium Chloride 0.9% 100 ml @ Titrate IV .Q0M [facility] Rx#:[id number] Propofol 500 mg In Empty 197.618 Bag 1 bag @ Titrate IV . Q0M [facility] Rx#:[id number] Tube Feeding 240 180 Output: Urine 0 0 5 Other: Voiding Method Incontinent Incontinent # Voids 0 # Bowel Movements 0 ABP, PAP, CO, CI - Last Documented Arterial Blood Pressure 152/63 - Exam Gen.: Patient does open eyes to verbal and tactile stimuli. He does follow commands. Cardiovascular: Regular rate and rhythm, S1/S2, tachycardic Lungs: Diminished breath sounds at the bilateral bases Abdomen: Soft nontender nondistended positive bowel sounds Extremities: 2+ edema - Labs CBC & Chem 7: 09/15/16 04:26 09/15/16 04:26 Labs: Abnormal Lab Results - Last 24 Hours (Table) 09/15/16 09/15/16 09/15/16 Range/Units 02:14 04:26 04:26 RBC 3.11 L (4.30-5.90) m/uL Hgb 9.6 L (13.0-17.5) gm/dL Hct 30.2 L (39.0-53.0) % Plt Count 92 L (150-450) k/uL Lymphocytes # 0.4 L (1.0-4.8) k/uL ABG pH (7.35-7.45) ABG pO2 (83-108) mmHg ABG HCO3 (21-25) mmol/L ABG Total CO2 (19-24) mmol/L ABG O2 Saturation (94-97) % Carbon Dioxide 17 L (22-30) mmol/L BUN 60 H (9-20) mg/dL Creatinine 9.50 H* (0.66-1.25) mg/dL Glucose 106 H (74-99) mg/dL POC Glucose (mg/dL) 105 H (75-99) mg/dL Calcium 8.3 L (8.4-10.2) mg/dL Phosphorus 9.3 H* (2.5-4.5) mg/dL Magnesium 2.5 H (1.6-2.3) mg/dL Total Bilirubin 3.6 H (0.2-1.3) mg/dL AST 245 H (17-59) U/L ALT 372 H (21-72) U/L Alkaline Phosphatase 252 H (38-126) U/L Creatine Kinase 5627 H (55-170) U/L Total Protein 4.9 L (6.3-8.2) g/dL Albumin 2.5 L (3.5-5.0) g/dL 09/15/16 09/15/16 Range/Units 04:40 06:16 RBC (4.30-5.90) m/uL Hgb (13.0-17.5) gm/dL Hct (39.0-53.0) % Plt Count (150-450) k/uL Lymphocytes # (1.0-4.8) k/uL ABG pH 7.31 L (7.35-7.45) ABG pO2 127 H (83-108) mmHg ABG HCO3 17 L (21-25) mmol/L ABG Total CO2 18 L (19-24) mmol/L ABG O2 Saturation 98.6 H (94-97) % Carbon Dioxide (22-30) mmol/L BUN (9-20) mg/dL Creatinine (0.66-1.25) mg/dL Glucose (74-99) mg/dL POC Glucose (mg/dL) 107 H (75-99) mg/dL Calcium (8.4-10.2) mg/dL Phosphorus (2.5-4.5) mg/dL Magnesium (1.6-2.3) mg/dL Total Bilirubin (0.2-1.3) mg/dL AST (17-59) U/L ALT (21-72) U/L Alkaline Phosphatase (38-126) U/L Creatine Kinase (55-170) U/L Total Protein (6.3-8.2) g/dL Albumin (3.5-5.0) g/dL Assessment and Plan Plan: Acute hypoxic respiratory failure requiring mechanical ventilation Severe refractory Shock, resolved Delirium tremens Right lower lobe atelectasis, aspiration event Severe metabolic acidosis, anion gap with mixed respiratory acidosis Severe hyperkalemia Acute renal failure, requiring hemodialysis Rhabdomyolysis Lactic acidosis Possible seizure activity Hypomagnesemia Shock liver History of opiate and alcohol abuse Active tobacco abuse Continue full vent support, wean FiO2 as able SBT, ABG in 1 hour Sports bed with chest PT Monitor labs Monitor urine output Hold all sedation Ativan PRN seizure Antibiotics: Jessica Perez Neurology recommendations, EEG Pain control Patient is currently off of pressors and is hypertensive, will order hydralazine as needed Nephrology recommendations GI and DVT prophylaxis Continue tube feeds, multivitamin, thiamine, folate Prognosis is very guarded
[2016-09-15 12:02] LABS: ABG Base Excess -9.4 mmol/L; ABG HCO3 16 mmol/L (21-25); ABG PCO2 35 mmHg (35-45); ABG PH 7.29 (7.35-7.45); ABG PO2 97 mmHg (83-108); ABG TCO2 17 mmol/L (19-24)
[2016-09-15] MEDS: MULTIVITAMINS, THERA LIQUID 237 ML BOTTLE OG-TUBE SCH (13:04)
[2016-09-15] MEDS: THIAMINE 100 MG TAB OG-TUBE SCH (13:04)
[2016-09-15] MEDS: FOLIC ACID 1 MG TAB OG-TUBE SCH (13:04)
[2016-09-15] MEDS: CALCIUM CARBONATE LIQUID 500 MG/5 ML CUP PO SCH ×2 (13:42→17:14)
[2016-09-15] MEDS ORDERED: ATROPINE SULFATE 0.1 MG/ML 10ML SYRINGE ONE (13:51)
--- NOTE | 2016-09-15 14:14 | P.PN ---
Subjective Patients being seen on rounds this afternoon with the attending. Patient had been extubated within the last 1-2 hours. Patient is sitting up in bed. Will follow some simple command. There is some spontaneous breathing. Currently on a nasal cannula at 6 L sats are documented currently at 96% family at bedside Objective - Vital Signs Vital signs: Vital Signs Temp 98.2 F 09/15/16 12:00 Pulse 107 H 09/15/16 13:30 Resp 17 09/15/16 13:30 BP 185/99 09/13/16 16:20 Pulse Ox 96 09/15/16 13:30 Intake & Output 09/14/16 09/15/16 09/15/16 18:59 06:59 18:59 Intake Total 827.618 611.659 270.913 Output Total 0 0 5 Balance 827.618 611.659 265.913 Weight 109.2 kg 108.2 kg Intake: IV 390 302.5 230 0.9 @ KVO 240 240 130 Piperacillin-Tazobactam 3 50 62.5 .375 gm In Dextrose/Water 1 50ml.bag @ 12.5 mls/hr IVPB Q12H [facility] Rx#: [id number] levETIRAcetam IV 500 mg 100 100 In Sodium Chloride 0.9% 100 ml @ 400 mls/hr IVPB Q12HR [facility] Rx#:[id number] Intake, IV Titration 197.618 129.159 40.913 Amount Dexmedetomidine 400 mcg 129.159 40.913 In Sodium Chloride 0.9% 100 ml @ Titrate IV .Q0M [facility] Rx#:[id number] Propofol 500 mg In Empty 197.618 Bag 1 bag @ Titrate IV . Q0M [facility] Rx#:[id number] Tube Feeding 240 180 Output: Urine 0 0 5 Other: Voiding Method Incontinent Incontinent # Voids 0 # Bowel Movements 0 ABP, PAP, CO, CI - Last Documented Arterial Blood Pressure 163/69 - Exam Physical exam 40-year-old who does open his eyes to verbal and tactile stimuli. Will follow simple commands. Lungs posterior diminished at the bases upper airways rhonchi breath sounds Heart S1-S2 audible and regular Abdomen soft nontender not distended Extremities a 2+ nonpitting edema - Labs CBC & Chem 7: 09/15/16 04:26 09/15/16 04:26 Labs: Abnormal Lab Results - Last 24 Hours (Table) 09/15/16 09/15/16 09/15/16 Range/Units 02:14 04:26 04:26 RBC 3.11 L (4.30-5.90) m/uL Hgb 9.6 L (13.0-17.5) gm/dL Hct 30.2 L (39.0-53.0) % Plt Count 92 L (150-450) k/uL Lymphocytes # 0.4 L (1.0-4.8) k/uL ABG pH (7.35-7.45) ABG pO2 (83-108) mmHg ABG HCO3 (21-25) mmol/L ABG Total CO2 (19-24) mmol/L ABG O2 Saturation (94-97) % Carbon Dioxide 17 L (22-30) mmol/L BUN 60 H (9-20) mg/dL Creatinine 9.50 H* (0.66-1.25) mg/dL Glucose 106 H (74-99) mg/dL POC Glucose (mg/dL) 105 H (75-99) mg/dL Calcium 8.3 L (8.4-10.2) mg/dL Phosphorus 9.3 H* (2.5-4.5) mg/dL Magnesium 2.5 H (1.6-2.3) mg/dL Total Bilirubin 3.6 H (0.2-1.3) mg/dL AST 245 H (17-59) U/L ALT 372 H (21-72) U/L Alkaline Phosphatase 252 H (38-126) U/L Creatine Kinase 5627 H (55-170) U/L Total Protein 4.9 L (6.3-8.2) g/dL Albumin 2.5 L (3.5-5.0) g/dL 09/15/16 09/15/16 09/15/16 Range/Units 04:40 06:16 11:49 RBC (4.30-5.90) m/uL Hgb (13.0-17.5) gm/dL Hct (39.0-53.0) % Plt Count (150-450) k/uL Lymphocytes # (1.0-4.8) k/uL ABG pH 7.31 L 7.29 L (7.35-7.45) ABG pO2 127 H (83-108) mmHg ABG HCO3 17 L 16 L (21-25) mmol/L ABG Total CO2 18 L 17 L (19-24) mmol/L ABG O2 Saturation 98.6 H (94-97) % Carbon Dioxide (22-30) mmol/L BUN (9-20) mg/dL Creatinine (0.66-1.25) mg/dL Glucose (74-99) mg/dL POC Glucose (mg/dL) 107 H (75-99) mg/dL Calcium (8.4-10.2) mg/dL Phosphorus (2.5-4.5) mg/dL Magnesium (1.6-2.3) mg/dL Total Bilirubin (0.2-1.3) mg/dL AST (17-59) U/L ALT (21-72) U/L Alkaline Phosphatase (38-126) U/L Creatine Kinase (55-170) U/L Total Protein (6.3-8.2) g/dL Albumin (3.5-5.0) g/dL Assessment and Plan Plan: Impression Present on admission acute hypoxic respiratory failure on vent support multifactorial Present on admission severely hyperkalemic potassium 8.7 Present on admission urine drug screen positive for opiates Polysubstance of drug abuse Suspect anoxic brain injury Present on admission acute kidney injury anion gap metabolic acidosis due to acute kidney injury with lactic acidosis Active tobacco abuse Possible seizure activity Right lower lobe atelectasis with an aspiration event Severe refractory shock resolved Present on admission Rhabdomyolysis Lactic acidosis History of a depressive disorder nonspecified on Lexapro at home Present on admission Hypomagnesemia with elevated potassium hyperkalemic Present on admission acute alcohol intoxication History of chronic alcoholism daily consumption Present on Admission elevated lipase amylase AST ALT suspect acute pancreatitis due to chronic alcoholism Plan Continue with recommendations from the medical library assistant for ICU management Continue recommendations by nephrology defer to Monitor electrolytes addressed per protocol on the ICU DVT and GI prophylaxis IV fluid at 75 an hour Continue recommendations from all consulting physicians defer to Family updated on plan of care treatment questions answered The above dictated assessment and findings were discussed with dr brito Impression and the plan of care have been dictated as directed. Pavithra Hameed nurse practitioner acting as a scribe for dr brito
--- NOTE | 2016-09-15 15:42 | P.PN ---
Subjective This patient is a 40-year-old right-handed white male was initially admitted to hospital with acute respiratory failure and episode of unresponsiveness. He was found to have evidence of underlying alcohol abuse and was in delirium tremens. He was having multiple myoclonic seizures. He was treated for this condition is currently on Keppra. Patient was extubated earlier today and seems to be making slow progress. The patient's parents were at bedside and they were updated on his condition. Neurologically he has remained stable and does seem to open his eyes since extubation late this afternoon. He is still lethargic at times but does seem to open his eyes. He is following some simple commands as well. The patient is on Keppra for treatment of myoclonus. His Keppra blood level today is 23.2 and is definitely in the therapeutic range. We will consider repeat EEG for the patient depending on his response to extubation. We would recommend a follow-up computed tomography scan of the brain to be done today for further assessment. Pulmonary medicine is monitoring his blood gases closely. Apparently he may require reintubation depending on how he does clinically. We will continue close neurological follow -up with the patient in the ICU. Once again his parents were at bedside and there were updated on his neurological status at this time. His overall prognosis at this time remains guarded. Objective - Vital Signs Vital signs: Vital Signs Temp 98.2 F 09/15/16 12:00 Pulse 107 H 09/15/16 13:30 Resp 17 09/15/16 13:30 BP 185/99 09/13/16 16:20 Pulse Ox 96 09/15/16 13:30 Intake & Output 09/14/16 09/15/16 09/15/16 18:59 06:59 18:59 Intake Total 827.618 611.659 270.913 Output Total 0 0 5 Balance 827.618 611.659 265.913 Weight 109.2 kg 108.2 kg Intake: IV 390 302.5 230 0.9 @ KVO 240 240 130 Piperacillin-Tazobactam 3 50 62.5 .375 gm In Dextrose/Water 1 50ml.bag @ 12.5 mls/hr IVPB Q12H [facility] Rx#: [id number] levETIRAcetam IV 500 mg 100 100 In Sodium Chloride 0.9% 100 ml @ 400 mls/hr IVPB Q12HR [facility] Rx#:[id number] Intake, IV Titration 197.618 129.159 40.913 Amount Dexmedetomidine 400 mcg 129.159 40.913 In Sodium Chloride 0.9% 100 ml @ Titrate IV .Q0M [facility] Rx#:[id number] Propofol 500 mg In Empty 197.618 Bag 1 bag @ Titrate IV . Q0M [facility] Rx#:[id number] Tube Feeding 240 180 Output: Urine 0 0 5 Other: Voiding Method Incontinent Incontinent # Voids 0 # Bowel Movements 0 ABP, PAP, CO, CI - Last Documented Arterial Blood Pressure 163/69 - Exam Physical examination: PHYSICAL EXAMINATION: Patient is resting comfortably in bed. VITAL SIGNS: Blood pressure is [163/69]. Heart rate is [107]. Respiration is [17 ]. Temperature is [98.2]. HEENT: Head is atraumatic, neck is supple, there were no carotid bruits. CHEST: Lungs are clear to auscultation and percussion. CARDIAC: S1, S2 normal rate and rhythm. There is no murmur. ABDOMEN: Soft and nontender. Bowel sounds are present. EXTREMITIES: There is no pedal edema. Peripheral pulses are present. Neurological examination: Patient was extubated today and is opening his eyes. He is following only very simple commands. He is moving all 4 extremities. Deep tendon reflexes are brisk in both upper and lower extremities. Plantar responses flexor bilaterally. Coordination gait cannot be assessed in this patient at this time. - Labs CBC & Chem 7: 09/15/16 04:26 09/15/16 04:26 Labs: Abnormal Lab Results - Last 24 Hours (Table) 09/15/16 09/15/16 09/15/16 Range/Units 02:14 04:26 04:26 RBC 3.11 L (4.30-5.90) m/uL Hgb 9.6 L (13.0-17.5) gm/dL Hct 30.2 L (39.0-53.0) % Plt Count 92 L (150-450) k/uL Lymphocytes # 0.4 L (1.0-4.8) k/uL ABG pH (7.35-7.45) ABG pO2 (83-108) mmHg ABG HCO3 (21-25) mmol/L ABG Total CO2 (19-24) mmol/L ABG O2 Saturation (94-97) % Carbon Dioxide 17 L (22-30) mmol/L BUN 60 H (9-20) mg/dL Creatinine 9.50 H* (0.66-1.25) mg/dL Glucose 106 H (74-99) mg/dL POC Glucose (mg/dL) 105 H (75-99) mg/dL Calcium 8.3 L (8.4-10.2) mg/dL Phosphorus 9.3 H* (2.5-4.5) mg/dL Magnesium 2.5 H (1.6-2.3) mg/dL Total Bilirubin 3.6 H (0.2-1.3) mg/dL AST 245 H (17-59) U/L ALT 372 H (21-72) U/L Alkaline Phosphatase 252 H (38-126) U/L Creatine Kinase 5627 H (55-170) U/L Total Protein 4.9 L (6.3-8.2) g/dL Albumin 2.5 L (3.5-5.0) g/dL 09/15/16 09/15/16 09/15/16 Range/Units 04:40 06:16 11:49 RBC (4.30-5.90) m/uL Hgb (13.0-17.5) gm/dL Hct (39.0-53.0) % Plt Count (150-450) k/uL Lymphocytes # (1.0-4.8) k/uL ABG pH 7.31 L 7.29 L (7.35-7.45) ABG pO2 127 H (83-108) mmHg ABG HCO3 17 L 16 L (21-25) mmol/L ABG Total CO2 18 L 17 L (19-24) mmol/L ABG O2 Saturation 98.6 H (94-97) % Carbon Dioxide (22-30) mmol/L BUN (9-20) mg/dL Creatinine (0.66-1.25) mg/dL Glucose (74-99) mg/dL POC Glucose (mg/dL) 107 H (75-99) mg/dL Calcium (8.4-10.2) mg/dL Phosphorus (2.5-4.5) mg/dL Magnesium (1.6-2.3) mg/dL Total Bilirubin (0.2-1.3) mg/dL AST (17-59) U/L ALT (21-72) U/L Alkaline Phosphatase (38-126) U/L Creatine Kinase (55-170) U/L Total Protein (6.3-8.2) g/dL Albumin (3.5-5.0) g/dL Assessment and Plan (1) Anoxic encephalopathy Status: Acute Code(s): G93.1 - ANOXIC BRAIN DAMAGE, NOT ELSEWHERE CLASSIFIED (2) Acute hyperkalemia Status: Acute Code(s): E87.5 - HYPERKALEMIA (3) Acute respiratory failure Status: Acute Code(s): J96.00 - ACUTE RESPIRATORY FAILURE, UNSP W HYPOXIA OR HYPERCAPNIA (4) Alcoholic hepatitis Status: Acute Code(s): K70.10 - ALCOHOLIC HEPATITIS WITHOUT ASCITES (5) Sepsis Status: Acute Code(s): A41.9 - SEPSIS, UNSPECIFIED ORGANISM Plan: This patient is a 40-year-old right-handed white male was initially admitted to hospital after being found unresponsive at home. He was found to have evidence of severe alcohol abuse and delirium tremens. He was intubated and was treated for anoxic encephalopathy with myoclonic seizures. He is currently on Keppra monotherapy. His Keppra blood level came back therapeutic at 23.2 today. Patient was extubated today and is doing better and is following some simple commands. He is on nasal oxygen at this time. We would recommend a follow-up computed tomography scan of the brain to be done today for further evaluation. Depending on how he responds we may consider a follow-up EEG as well. Case was discussed today at length with both of the patient's parents at bedside. All of their questions were answered. They are aware of his guarded condition. We will continue close neurological follow-up with this patient in the intensive care unit.
[2016-09-15 15:59] LABS: ABG Base Excess -10.7 mmol/L; ABG HCO3 15 mmol/L (21-25); ABG PCO2 34 mmHg (35-45); ABG PH 7.26 (7.35-7.45); ABG PO2 85 mmHg (83-108); ABG TCO2 16 mmol/L (19-24)
[2016-09-15] MEDS ORDERED: SODIUM BICARB 8.4% 50 ML SYR (1 MEQ/ML) IV STA (16:45)
[2016-09-15] MEDS ORDERED: HEPARIN SODIUM,PORCINE 5,000 UNIT/ML 1 ML VIAL ONE (19:20)
--- NOTE | 2016-09-15 20:53 | CT ---
EXAMINATION TYPE: CT brain wo con DATE OF EXAM: 09/15/2016 8:43 PM COMPARISON: 09/09/2016 HISTORY: Lethargic after extubation. CT DLP: 923.9 mGycm Automated exposure control for dose reduction was used. FINDINGS: The ventricles and sulci appear normal. There is no mass effect nor midline shift. There is no sign o f intracranial hemorrhage. The calvarium is intact. IMPRESSION: Negative unenhanced head CT scan. No change. Minimal sphenoid sinusitis is noted.
[2016-09-15] MEDS ORDERED: NITROGLYCERIN SL TABS 0.4 MG TAB SUBLINGUAL ONE (21:26)
[2016-09-16] MEDS: LORazepam 2 MG/ML SYRINGE IV PRN ×8 (00:20→22:39)
[2016-09-16] MEDS: MORPHINE SULFATE 2 MG/ML SYRINGE IVP PRN (02:56)
[2016-09-16] MEDS: ALBUTEROL NEBULIZED 2.5 MG/3 ML INHALATION SCH ×6 (03:35→23:34)
[2016-09-16 04:41] LABS: CHCM 32.9; HCT 30.3 % (39.0-53.0); HDW 2.87; HGB 9.7 gm/dL (13.0-17.5); MCH 31.3 pg (25.0-35.0); MCV 97.9 fL (80.0-100.0); Mean Platelet Volume 8.8; RDW 13.7 % (11.5-15.5); WBC 11.4 k/uL (3.8-10.6)
[2016-09-16 05:26] LABS: Calcium 8.5 mg/dL (8.4-10.2); Magnesium 2.4 mg/dL (1.6-2.3); Potassium 4.9 mmol/L (3.5-5.1)
[2016-09-16 05:36] LABS: Phosphorous 8.2 mg/dL (2.5-4.5)
[2016-09-16] MEDS: hydrALAZINE HCL 20 MG/ML 1 ML VIAL IVP PRN ×2 (06:50→18:13)
--- NOTE | 2016-09-16 07:17 | XR ---
EXAMINATION TYPE: XR chest 1V portable DATE OF EXAM: 09/16/2016 6:34 AM Comparison: 09/15/2016 Clinical History: 40 year-old male shortness of breath Findings: Heart is upper limits of normal in size. There is diffuse increased patchy and confluent airspace [place] on both sides particularly in the perihilar regions and mid to lower lungs. NG tube courses belo w the diaphragm. Right-sided double-lumen hemodialysis catheter with a TIPS in the upper right atrium . ET tube appears to have been removed in the interval. Impression: Worsening with finding suggesting progression to [place] pulmonary edema. Interval extubation.
[2016-09-16] MEDS: CALCIUM CARBONATE LIQUID 500 MG/5 ML CUP PO SCH ×3 (08:32→16:33)
[2016-09-16] MEDS: ARTIFICIAL TEARS-HYPROMELLOSE DROPS 15 ML BTL BOTH EYES SCH ×4 (08:37→21:20)
[2016-09-16] MEDS: PANTOPRAZOLE 40 MG/10 ML VIAL IV SCH (08:37)
[2016-09-16] MEDS: LABETALOL 100 MG TAB OG-TUBE SCH ×2 (08:37→20:15)
[2016-09-16] MEDS: CHLORHEXIDINE GLUCONATE 15 ML CUP MUCOUS MEM SCH (08:37)
[2016-09-16] MEDS: HEPARIN SODIUM,PORCINE 5,000 UNIT/ML 1 ML VIAL SQ SCH ×2 (08:37→16:21)
--- NOTE | 2016-09-16 10:42 | P.PN ---
Subjective This is a 40-year-old male seen in consultation because of acute kidney injury secondary to rhabdomyolysis and has been dialyzed. He is on a Sunday schedule now. He was extubated yesterday. Post extubation he remains very obtunded and restless needing sedation again. He needed to be on BiPAP now because his desaturating and his chest x-ray shows congestive heart failure. His femoral catheter has been discontinued and at permacath in his right side. No urine output is documented. His CPK is down to 5627 on 09/15/2016. His history is as follows He came in with the syncope was intubated. He was severely hyperkalemic with potassium of 8.7 and a bicarb of 18 with positive drug screen for opiates serum alcohol level was 82 CPK was [address]65. He remained anuric as of the last 24 hours. Objective - Vital Signs Vital signs: Vital Signs Temp 99.1 F 09/16/16 00:00 Pulse 123 H 09/16/16 07:45 Resp 18 09/16/16 06:00 BP 185/99 09/13/16 16:20 Pulse Ox 93 L 09/16/16 06:00 Intake & Output 09/15/16 09/16/16 09/16/16 18:59 06:59 18:59 Intake Total 370.913 260 Output Total 10 1999 Balance 360.913 -1740 Weight 106.2 kg Intake: IV 330 260 0.9 @ KVO 230 260 levETIRAcetam IV 500 mg 100 In Sodium Chloride 0.9% 100 ml @ 400 mls/hr IVPB Q12HR [facility] Rx#:[id number] Intake, IV Titration 40.913 Amount Dexmedetomidine 400 mcg 40.913 In Sodium Chloride 0.9% 100 ml @ Titrate IV .Q0M [facility] Rx#:[id number] Output: Urine 10 0 Other 1999 Other: Voiding Method Incontinent Incontinent # Bowel Movements 0 0 ABP, PAP, CO, CI - Last Documented Arterial Blood Pressure 158/84 Extubated and on BiPAP currently. Sedated because of restlessness. Moans and groans but does not follow any commands. No facial asymmetry noted. Lungs are significant for occasional fine crackle but air entry is less than optimal. Chest x-ray shows congestive heart failure though. Heart sounds are unremarkable. Normal sinus rhythm on the monitor Abdomen is nondistended. No masses felt Extremity exam was mild edema Neurologically as mentioned about obtunded restless. No focal motor deficit is discernible. - Labs CBC & Chem 7: 09/16/16 04:30 09/16/16 04:30 Labs: Abnormal Lab Results - Last 24 Hours (Table) 09/15/16 09/15/16 09/16/16 Range/Units 11:49 15:50 04:30 WBC (3.8-10.6) k/uL RBC (4.30-5.90) m/uL Hgb (13.0-17.5) gm/dL Hct (39.0-53.0) % Plt Count (150-450) k/uL ABG pH 7.29 L 7.26 L (7.35-7.45) ABG pCO2 34 L (35-45) mmHg ABG HCO3 16 L 15 L (21-25) mmol/L ABG Total CO2 17 L 16 L (19-24) mmol/L Carbon Dioxide (22-30) mmol/L BUN (9-20) mg/dL Creatinine (0.66-1.25) mg/dL Phosphorus (2.5-4.5) mg/dL Magnesium (1.6-2.3) mg/dL Creatine Kinase 5695 H (55-170) U/L 09/16/16 09/16/16 Range/Units 04:30 04:30 WBC 11.4 H (3.8-10.6) k/uL RBC 3.10 L (4.30-5.90) m/uL Hgb 9.7 L (13.0-17.5) gm/dL Hct 30.3 L (39.0-53.0) % Plt Count 148 L D (150-450) k/uL ABG pH (7.35-7.45) ABG pCO2 (35-45) mmHg ABG HCO3 (21-25) mmol/L ABG Total CO2 (19-24) mmol/L Carbon Dioxide 20 L (22-30) mmol/L BUN 53 H (9-20) mg/dL Creatinine 8.14 H* (0.66-1.25) mg/dL Phosphorus 8.2 H* (2.5-4.5) mg/dL Magnesium 2.4 H (1.6-2.3) mg/dL Creatine Kinase (55-170) U/L Assessment and Plan Plan: Impression 1. ATN from rhabdomyolysis and on dialysis stable, currently on hemodialysis on a Sunday schedule no urine output. Kang catheter in his groin has been removed and he has a permacath on the right side Was placed on . No evidence of injury with no urine output 2. Rhabdomyolysis with CPK is going down to 5627 on 09/15/2016 from 7749, Improving 3. Non-gap acidosis with bicarb 20 and anion gap of 20 suggestive of a gap acidosis with a delta gap of 8 with a delta bicarb of only 4 therefore establishing the presence of a anabolic alkalosis as well. Etiology of non-gap acidosis is acute kidney injury. The metabolic alkalosis possibly from the dialysis 5. Ventilator dependent respiratory failure on 50% FiO2. Unable to wean currently because of possible withdrawal symptoms from alcohol exam. 6. Hypocalcemia with calcium improved to improved to 8.5, secondary to rhabdomyolysis and resolved. 7. Hyperphosphatemia worsening phosphorus because of immobilization of phosphorus from the rhabdomyolysis recovery, Remains high in spite of being on binders. 7. CHF by chest x-ray Recommendation. 1. will dialyze him today Sunday extra dialysis because of the congestive heart failure but we will Maintain current dialysis schedule on a Sunday. We will attempt 4 L ultrafiltration or 3-1/2 hours. 2. Monitor calcium phosphorus. 3. Maintain calcium carbonate phosphate binder from 500-1 g 3 times a day via NG tube.Expect phosphorus to improve with extra dialysis
[2016-09-16] MEDS: levETIRAcetam IV 500 MG in SODIUM CHLORIDE 0.9% 100 ML IVPB SCH ×2 (10:43→20:15)
--- NOTE | 2016-09-16 10:53 | P.PN ---
Subjective Principal diagnosis: Respiratory failure Patient seen and examined in the ICU with nursing staff and family at bedside. The patient became more to Tachycardic this morning. He was placed on BiPAP. He appears to be tolerating it well. He was given Ativan for agitation earlier in the day. The patient's chest x-ray appears to have worsening pulmonary edema. This is discussed with nephrology who will plan for dialysis today. The patient's mental status is improving somewhat however his prognosis is still very guarded. Objective - Vital Signs Vital signs: Vital Signs Temp 99.1 F 09/16/16 00:00 Pulse 123 H 09/16/16 07:45 Resp 18 09/16/16 06:00 BP 185/99 09/13/16 16:20 Pulse Ox 93 L 09/16/16 06:00 Intake & Output 09/15/16 09/16/16 09/16/16 18:59 06:59 18:59 Intake Total 370.913 260 Output Total 10 1999 Balance 360.913 -1740 Weight 106.2 kg Intake: IV 330 260 0.9 @ KVO 230 260 levETIRAcetam IV 500 mg 100 In Sodium Chloride 0.9% 100 ml @ 400 mls/hr IVPB Q12HR [facility] Rx#:[id number] Intake, IV Titration 40.913 Amount Dexmedetomidine 400 mcg 40.913 In Sodium Chloride 0.9% 100 ml @ Titrate IV .Q0M [facility] Rx#:[id number] Output: Urine 10 0 Other 2000 Other: Voiding Method Incontinent Incontinent # Bowel Movements 0 0 ABP, PAP, CO, CI - Last Documented Arterial Blood Pressure 158/84 - Exam Gen.: Patient does open eyes to verbal and tactile stimuli. He does follow commands. Cardiovascular: Regular rate and rhythm, S1/S2, tachycardic Lungs: Diminished breath sounds at the bilateral bases Abdomen: Soft nontender nondistended positive bowel sounds Extremities: 2+ edema - Labs CBC & Chem 7: 09/16/16 04:30 09/16/16 04:30 Labs: Abnormal Lab Results - Last 24 Hours (Table) 09/15/16 09/15/16 09/16/16 Range/Units 11:49 15:50 04:30 WBC (3.8-10.6) k/uL RBC (4.30-5.90) m/uL Hgb (13.0-17.5) gm/dL Hct (39.0-53.0) % Plt Count (150-450) k/uL ABG pH 7.29 L 7.26 L (7.35-7.45) ABG pCO2 34 L (35-45) mmHg ABG HCO3 16 L 15 L (21-25) mmol/L ABG Total CO2 17 L 16 L (19-24) mmol/L Carbon Dioxide (22-30) mmol/L BUN (9-20) mg/dL Creatinine (0.66-1.25) mg/dL Phosphorus (2.5-4.5) mg/dL Magnesium (1.6-2.3) mg/dL Creatine Kinase 5695 H (55-170) U/L 09/16/16 09/16/16 Range/Units 04:30 04:30 WBC 11.4 H (3.8-10.6) k/uL RBC 3.10 L (4.30-5.90) m/uL Hgb 9.7 L (13.0-17.5) gm/dL Hct 30.3 L (39.0-53.0) % Plt Count 148 L D (150-450) k/uL ABG pH (7.35-7.45) ABG pCO2 (35-45) mmHg ABG HCO3 (21-25) mmol/L ABG Total CO2 (19-24) mmol/L Carbon Dioxide 20 L (22-30) mmol/L BUN 53 H (9-20) mg/dL Creatinine 8.14 H* (0.66-1.25) mg/dL Phosphorus 8.2 H* (2.5-4.5) mg/dL Magnesium 2.4 H (1.6-2.3) mg/dL Creatine Kinase (55-170) U/L Assessment and Plan Plan: Acute hypoxic respiratory failure requiring mechanical ventilation Severe refractory Shock, resolved Delirium tremens Right lower lobe atelectasis, aspiration event Severe metabolic acidosis, anion gap with mixed respiratory acidosis Severe hyperkalemia Acute renal failure, requiring hemodialysis Rhabdomyolysis Lactic acidosis Possible seizure activity Hypomagnesemia Shock liver History of opiate and alcohol abuse Active tobacco abuse Continue BiPAP 12 over 5, titrate FiO2 for sats greater than or equal to 92% Sports bed with chest PT Monitor labs Monitor urine output Will start low-dose Librium Ativan PRN seizure Antibiotics: Jessica Perez Neurology recommendations, EEG, will order repeat Pain control Patient is currently off of pressors and is hypertensive, will order hydralazine as needed Nephrology recommendations, the case was discussed with nephrology regarding worsening pulmonary edema. We will plan for hemodialysis today. GI and DVT prophylaxis Multivitamin, thiamine, folate Tube feeds on hold for now Check ammonia level Prognosis is very guarded
[2016-09-16] MEDS: MULTIVITAMINS, THERA LIQUID 237 ML BOTTLE OG-TUBE SCH (12:07)
[2016-09-16] MEDS: FOLIC ACID 1 MG TAB OG-TUBE SCH (12:08)
[2016-09-16] MEDS: THIAMINE 100 MG TAB OG-TUBE SCH (12:08)
[2016-09-16] MEDS: PIPERACILLIN-TAZOBACTAM 3.375 GM in DEXTROSE/WATER 1 50ML.BAG IVPB SCH (12:37)
--- NOTE | 2016-09-16 14:33 | P.PN ---
Subjective This patient is a 40-year-old right-handed white male was initially admitted to hospital with acute respiratory failure and episode of unresponsiveness. He was found to have evidence of underlying alcohol abuse and was in delirium tremens. He was having multiple myoclonic seizures. He was treated for this condition is currently on Keppra. Patient was extubated yesterday and seems to be making slow progress. The patient's parents were at bedside and they were updated on his condition. Neurologically he has remained stable and does seem to open his eyes since extubation and follow some simple commands. He is still lethargic at times but does seem to open his eyes. He is following some simple commands as well. The patient is on Keppra for treatment of myoclonus. He has been placed on BiPAP. His Keppra blood level today is 23.2 and is definitely in the therapeutic range. We will consider repeat EEG for the patient depending on his response to extubation. We would recommend a follow-up computed tomography scan of the brain to be done today for further assessment. Repeat computed tomography scan of the brain was completed yesterday and is negative for any acute changes. No evidence of acute stroke or changes of vasogenic edema. He is being treated for acute respiratory failure still and does have evidence of pulmonary edema today on examination. Pulmonary medicine is monitoring his blood gases closely. The patient was started on Librium due to increased agitation and once again possible delirium tremens. This seems to have helped him quite down so he can complete his hemodialysis today in the ICU. He does have worsening findings of pulmonary edema and congestive heart failure. Nephrology will plan to do dialysis for him today to remove fluid. His serum creatinine today remains elevated at 8.14. We will continue close neurological follow-up with the patient in the ICU. We will consider a follow- up EEG possibly on Sunday for further assessment. Once again his parents were at bedside and there were updated on his neurological status at this time. His overall prognosis at this time remains guarded. Objective - Vital Signs Vital signs: Vital Signs Temp 98.4 F 09/16/16 11:00 Pulse 108 H 09/16/16 11:19 Resp 25 H 09/16/16 11:00 BP 185/99 09/13/16 16:20 Pulse Ox 96 09/16/16 08:00 Intake & Output 09/15/16 09/16/16 09/16/16 18:59 06:59 18:59 Intake Total 370.913 260 40 Output Total 1999 Balance 360.913 -1740 40 Weight 106.2 kg Intake: IV 330 260 40 0.9 @ KVO 230 260 40 levETIRAcetam IV 500 mg 100 In Sodium Chloride 0.9% 100 ml @ 400 mls/hr IVPB Q12HR [facility] Rx#:[id number] Intake, IV Titration 40.913 Amount Dexmedetomidine 400 mcg 40.913 In Sodium Chloride 0.9% 100 ml @ Titrate IV .Q0M [facility] Rx#:[id number] Output: Urine 10 0 Other 1999 Other: Voiding Method Incontinent Incontinent Incontinent # Bowel Movements 0 0 0 ABP, PAP, CO, CI - Last Documented Arterial Blood Pressure 136/75 - Exam Physical examination: PHYSICAL EXAMINATION: Patient is resting comfortably in bed. VITAL SIGNS: Blood pressure is [136/75]. Heart rate is [111]. Respiration is [25 ]. Temperature is [98.4]. HEENT: Head is atraumatic, neck is supple, there were no carotid bruits. CHEST: Lungs are clear to auscultation and percussion. CARDIAC: S1, S2 normal rate and rhythm. There is no murmur. ABDOMEN: Soft and nontender. Bowel sounds are present. EXTREMITIES: There is no pedal edema. Peripheral pulses are present. Neurological examination: Patient was extubated today and is opening his eyes. He remained sedated and is currently on Librium and Ativan.. He is moving all 4 extremities. Deep tendon reflexes are brisk in both upper and lower extremities. Plantar responses flexor bilaterally. Coordination gait cannot be assessed in this patient at this time. - Labs CBC & Chem 7: 09/16/16 04:30 09/16/16 04:30 Labs: Abnormal Lab Results - Last 24 Hours (Table) 09/15/16 09/16/16 09/16/16 Range/Units 15:50 04:30 04:30 WBC 11.4 H (3.8-10.6) k/uL RBC 3.10 L (4.30-5.90) m/uL Hgb 9.7 L (13.0-17.5) gm/dL Hct 30.3 L (39.0-53.0) % Plt Count 148 L D (150-450) k/uL ABG pH 7.26 L (7.35-7.45) ABG pCO2 34 L (35-45) mmHg ABG HCO3 15 L (21-25) mmol/L ABG Total CO2 16 L (19-24) mmol/L Carbon Dioxide (22-30) mmol/L BUN (9-20) mg/dL Creatinine (0.66-1.25) mg/dL Phosphorus (2.5-4.5) mg/dL Magnesium (1.6-2.3) mg/dL Creatine Kinase 5695 H (55-170) U/L 09/16/16 Range/Units 04:30 WBC (3.8-10.6) k/uL RBC (4.30-5.90) m/uL Hgb (13.0-17.5) gm/dL Hct (39.0-53.0) % Plt Count (150-450) k/uL ABG pH (7.35-7.45) ABG pCO2 (35-45) mmHg ABG HCO3 (21-25) mmol/L ABG Total CO2 (19-24) mmol/L Carbon Dioxide 20 L (22-30) mmol/L BUN 53 H (9-20) mg/dL Creatinine 8.14 H* (0.66-1.25) mg/dL Phosphorus 8.2 H* (2.5-4.5) mg/dL Magnesium 2.4 H (1.6-2.3) mg/dL Creatine Kinase (55-170) U/L Assessment and Plan (1) Anoxic encephalopathy Status: Acute Code(s): G93.1 - ANOXIC BRAIN DAMAGE, NOT ELSEWHERE CLASSIFIED (2) Acute hyperkalemia Status: Acute Code(s): E87.5 - HYPERKALEMIA (3) Acute respiratory failure Status: Acute Code(s): J96.00 - ACUTE RESPIRATORY FAILURE, UNSP W HYPOXIA OR HYPERCAPNIA (4) Alcoholic hepatitis Status: Acute Code(s): K70.10 - ALCOHOLIC HEPATITIS WITHOUT ASCITES (5) Sepsis Status: Acute Code(s): A41.9 - SEPSIS, UNSPECIFIED ORGANISM Plan: This patient is a 40-year-old right-handed white male was initially admitted to hospital after being found unresponsive at home. He was found to have evidence of severe alcohol abuse and delirium tremens. He was intubated and was treated for anoxic encephalopathy with myoclonic seizures. He is currently on Keppra monotherapy. His Keppra blood level came back therapeutic at 23.2 today. Patient was extubated yesterday and is doing better and is following some simple commands. He has been placed on BiPAP today. He did have a repeat computed tomography scan of the brain yesterday for further evaluation. CAT scan was reported negative for any acute changes. Depending on how he responds we may consider a follow-up EEG as well. Patient has evidence of pulmonary edema as well as congestive heart failure. Nephrology is planning to do do dialysis for him today to remove fluid. His serum creatinine today is 8.14. His CK levels have been trending downwards. We will await further recommendations from nephrology. The patient is undergoing hemodialysis today in the ICU. We will await his repeat laboratory testing tomorrow morning. He has been placed on combination of Librium and Ativan due to agitation. His blood pressure and mental status have improved on this current treatment. He has continuing to use BiPAP at this time. Hopefully he will not require reintubation. We will continue close neurological follow-up with this patient in the intensive care unit. His overall prognosis at this time remains very guarded.
[2016-09-17] MEDS: PIPERACILLIN-TAZOBACTAM 3.375 GM in DEXTROSE/WATER 1 50ML.BAG IVPB SCH ×2 (00:16→11:10)
[2016-09-17] MEDS: HEPARIN SODIUM,PORCINE 5,000 UNIT/ML 1 ML VIAL SQ SCH ×3 (00:16→18:05)
[2016-09-17] MEDS: LORazepam 2 MG/ML SYRINGE IV PRN ×7 (00:17→20:48)
[2016-09-17] MEDS: HALOPERIDOL LACTATE 5 MG/ML 1 ML VIAL IM PRN ×3 (02:22→18:04)
[2016-09-17] MEDS: hydrALAZINE HCL 20 MG/ML 1 ML VIAL IVP PRN (02:42)
[2016-09-17] MEDS: ALBUTEROL NEBULIZED 2.5 MG/3 ML INHALATION SCH ×5 (03:56→20:44)
[2016-09-17 04:38] LABS: CH 31.9; CHCM 33.3; HCT 26.4 % (39.0-53.0); HDW 2.79; HGB 8.7 gm/dL (13.0-17.5); MCH 31.8 pg (25.0-35.0); MCV 96.5 fL (80.0-100.0); Mean Platelet Volume 8.9; RBC 2.74 m/uL (4.30-5.90); RDW 13.4 % (11.5-15.5); WBC 11.8 k/uL (3.8-10.6)
[2016-09-17 05:03] LABS: Calcium 8.9 mg/dL (8.4-10.2); Magnesium 2.5 mg/dL (1.6-2.3); Phosphorous 6.3 mg/dL (2.5-4.5); Potassium 4.3 mmol/L (3.5-5.1)
[2016-09-17 05:08] LABS: ABG HCO3 23 mmol/L (21-25); ABG PCO2 40 mmHg (35-45); ABG PH 7.37 (7.35-7.45); ABG PO2 132 mmHg (83-108); ABG TCO2 24 mmol/L (19-24)
--- NOTE | 2016-09-17 07:28 | XR ---
EXAMINATION TYPE: XR chest 1V portable DATE OF EXAM: 09/17/2016 6:28 AM Comparison: 09/16/2016 Clinical History: 40 year-old male shortness of breath Findings: NG tube courses below the diaphragm. Double-lumen hemodialysis catheter on the right with tips at the cavoatrial junction/upper right atrium. Heart remains enlarged. Patchy and confluent bilateral airspace opacity persists throughout the lungs . There has been no significant change. No significant pleural effusion seen on the frontal view. Impression: Overall stable diffuse airspace disease suggesting pulmonary edema.
[2016-09-17] MEDS: CALCIUM CARBONATE LIQUID 500 MG/5 ML CUP PO SCH ×3 (08:09→18:05)
[2016-09-17] MEDS: ARTIFICIAL TEARS-HYPROMELLOSE DROPS 15 ML BTL BOTH EYES SCH ×3 (08:09→18:05)
[2016-09-17] MEDS: LABETALOL 100 MG TAB OG-TUBE SCH (08:10)
[2016-09-17] MEDS: PANTOPRAZOLE 40 MG/10 ML VIAL IV SCH (08:10)
[2016-09-17] MEDS: levETIRAcetam IV 500 MG in SODIUM CHLORIDE 0.9% 100 ML IVPB SCH ×2 (08:13→20:10)
--- NOTE | 2016-09-17 09:07 | P.PN ---
Subjective This is a 40-year-old male seen in consultation because of acute kidney injury secondary to rhabdomyolysis and has been on dialysis dialysis. He is on a Sunday schedule now. He was extubated day before yesterday 09/15/2016. Yesterday he was in pulmonary edema and was on BiPAP. He was therefore dialyze extra, 4 L were taken off he remained very stable during dialysis. Pressure being higher than normal. This morning he remains on CPAP and the chest x-ray still looks unchanged with pulmonary edema, cardiomegaly is minimal He remains in a anuric. Mental status remains obtunded. His femoral catheter has been discontinued and at permacath in his right side. His history is as follows He came in with the syncope was intubated. He was severely hyperkalemic with potassium of 8.7 and a bicarb of 18 with positive drug screen for opiates serum alcohol level was 82 CPK was 45310. He remained anuric as of the last 24 hours. Objective - Vital Signs Vital signs: Vital Signs Temp 99.5 F 09/17/16 08:00 Pulse 102 H 09/17/16 08:44 Resp 23 09/17/16 08:00 BP 185/99 09/13/16 16:20 Pulse Ox 98 09/17/16 08:00 Intake & Output 09/16/16 09/17/16 09/17/16 18:59 06:59 18:59 Intake Total 410 340 20 Output Total 4000 Balance -3590 340 20 Weight 99.9 kg Intake: IV 410 340 20 0.9 @ KVO 260 240 20 Piperacillin-Tazobactam 3 50 .375 gm In Dextrose/Water 1 50ml.bag @ 12.5 mls/hr IVPB ONCE [facility] Rx#: [id number] levETIRAcetam IV 500 mg 100 100 In Sodium Chloride 0.9% 100 ml @ 400 mls/hr IVPB Q12HR [facility] Rx#:[id number] Output: Other 4000 Other: Voiding Method Incontinent Incontinent # Bowel Movements 0 0 ABP, PAP, CO, CI - Last Documented Arterial Blood Pressure 158/72 On examination is a obtunded does not respond to any commands. HEENT exam no JVP neck is supple. Pupils are equal but somewhat constricted Lungs are clear to auscultation. Good air entry bilaterally. Chest x-ray shows persistent pulmonary edema. Heart sounds are unremarkable no murmur rub gallop normal sinus rhythm on the monitor Abdomen is soft nontender nondistended Extremity exam was mild edema all over Neurologically as mentioned above. - Labs CBC & Chem 7: 09/17/16 04:30 09/17/16 04:30 Labs: Abnormal Lab Results - Last 24 Hours (Table) 09/17/16 09/17/16 09/17/16 Range/Units 04:23 04:30 04:30 WBC 11.8 H (3.8-10.6) k/uL RBC 2.74 L (4.30-5.90) m/uL Hgb 8.7 L (13.0-17.5) gm/dL Hct 26.4 L (39.0-53.0) % ABG pO2 132 H (83-108) mmHg ABG O2 Saturation 99.0 H (94-97) % BUN 60 H (9-20) mg/dL Creatinine 6.70 H* (0.66-1.25) mg/dL Glucose 103 H (74-99) mg/dL Phosphorus 6.3 H (2.5-4.5) mg/dL Magnesium 2.5 H (1.6-2.3) mg/dL Assessment and Plan Plan: Impression 1. ATN from rhabdomyolysis and on dialysis stable, currently on hemodialysis on a Sunday schedule no urine output. Kang catheter in his groin has been removed and he has a permacath on the right side Was placed on . No evidence of recovery of renal function with no urine output. 2. New congestive heart failure since yesterday 09/16/2016 dialyzed yesterday and remains in pulmonary edema. Possible noncardiogenic. On BiPAP 2. Rhabdomyolysis with CPK is going down to 5695 as of 09/16/2016 and was 5627 on 09/15/2016 from 7749, 3. Non-gap acidosis with bicarb 22 and anion gap of 17, a delta gap of 5 and a delta bicarb of 2. Therefore combination of gap acidosis and mild metabolic alkalosis as well. Etiology of non-gap acidosis is acute kidney injury. The metabolic alkalosis possibly from the dialysis 5. Extubated 09/15/2016, on BiPAP. 6. Hypocalcemia with calcium improved to improved to 8.9, secondary to rhabdomyolysis and resolved. 7. Hyperphosphatemia worsening phosphorus because of mobilization of phosphorus from the rhabdomyolysis recovery, Remains high in spite of being on binders. Today's phosphorus 6.3 7. CHF by chest x-ray Recommendation. 1. will dialyze him again today Sunday. We'll take off 4 L or 3 hours. He'll be dialyzed tomorrow as well. 2. Monitor calcium phosphorus. 3. Maintain calcium carbonate phosphate binder 1 g 3 times a day via NG tube.Expect phosphorus to improve with extra dialysis
[2016-09-17] MEDS: MULTIVITAMINS, THERA LIQUID 237 ML BOTTLE OG-TUBE SCH (11:13)
[2016-09-17] MEDS: THIAMINE 100 MG TAB OG-TUBE SCH (11:14)
[2016-09-17] MEDS: FOLIC ACID 1 MG TAB OG-TUBE SCH (11:14)
--- NOTE | 2016-09-17 15:23 | P.PN ---
Subjective This patient is a 40-year-old right-handed white male was initially admitted to hospital after being found unresponsive at his home. He was subsequent admitted and found to have evidence of acute renal failure with ATN from rhabdomyolysis. He is being followed closely by nephrology. He was extubated on 09/15/2016. He remains obtunded despite extubation. He had evidence yesterday of pulmonary edema and was undergoing dialysis yesterday at which time 4 L were taken off. Repeat chest x-ray looks unchanged with the pulmonary edema and he is to have dialysis again today as per nephrology. The patient remains anuric. He remains obtunded at this time and is on BiPAP for respiratory parameters. His serum creatinine did come down today to 6.70. This is an improvement from yesterday. As noted he is to undergo dialysis today and tomorrow. We will need to continue close monitoring of his electrolyte status closely. The patient neurologically show no significant changes. He remains encephalopathic and obtunded. He is on Keppra as he had evidence of myoclonus and or delirium tremens initially on admission. Apparently yesterday evening he became very agitated and required Librium and one dose of Haldol. This evening he was given Ativan and is currently resting comfortably during hemodialysis. His Keppra level has been checked and is therapeutic range. We will plan to get a repeat EEG tomorrow as a follow-up study. His neurological findings are still consistent with a diffuse anoxic encephalopathy. We will give further recommendations following his follow-up EEG study to be done tomorrow. He is being followed by multiple consultants. We will continue close neurological follow-up for the patient in the ICU setting. Objective - Vital Signs Vital signs: Vital Signs Temp 99.5 F 09/17/16 12:00 Pulse 122 H 09/17/16 12:00 Resp 32 H 09/17/16 12:00 BP 185/99 09/13/16 16:20 Pulse Ox 92 L 09/17/16 12:00 Intake & Output 09/16/16 09/17/16 09/17/16 18:59 06:59 18:59 Intake Total 410 340 270 Output Total 4000 60 Balance -3590 340 210 Weight 99.9 kg Intake: IV 410 340 120 0.9 @ KVO 260 240 120 Piperacillin-Tazobactam 3 50 .375 gm In Dextrose/Water 1 50ml.bag @ 12.5 mls/hr IVPB ONCE [facility] Rx#: [id number] levETIRAcetam IV 500 mg 100 100 In Sodium Chloride 0.9% 100 ml @ 400 mls/hr IVPB Q12HR [facility] Rx#:[id number] Intake, IV Titration 150 Amount Piperacillin-Tazobactam 3 50 .375 gm In Dextrose/Water 1 50ml.bag @ 12.5 mls/hr IVPB Q12H [facility] Rx#: [id number] levETIRAcetam IV 500 mg 100 In Sodium Chloride 0.9% 100 ml @ 400 mls/hr IVPB Q12HR [facility] Rx#:[id number] Output: Urine 60 Straight 30 Other 4000 Other: Voiding Method Incontinent Incontinent # Bowel Movements 0 0 ABP, PAP, CO, CI - Last Documented Arterial Blood Pressure 173/80 - Exam Physical examination: PHYSICAL EXAMINATION: Patient is resting comfortably in bed. VITAL SIGNS: Blood pressure is [173/80]. Heart rate is [120]. Respiration is [32 ]. Temperature is [99.5]. HEENT: Head is atraumatic, neck is supple, there were no carotid bruits. CHEST: Lungs are clear to auscultation and percussion. CARDIAC: S1, S2 normal rate and rhythm. There is no murmur. ABDOMEN: Soft and nontender. Bowel sounds are present. EXTREMITIES: There is no pedal edema. Peripheral pulses are present. Neurological examination: Patient was extubated Sunday and is opening his eyes. He is currently on BiPAP machine. He remained sedated and is currently on Librium and Ativan. He is moving all 4 extremities. Deep tendon reflexes are brisk in both upper and lower extremities. Plantar responses flexor bilaterally. Coordination gait cannot be assessed in this patient at this time. - Labs CBC & Chem 7: 09/17/16 04:30 09/17/16 04:30 Labs: Abnormal Lab Results - Last 24 Hours (Table) 09/17/16 09/17/16 09/17/16 Range/Units 04:23 04:30 04:30 WBC 11.8 H (3.8-10.6) k/uL RBC 2.74 L (4.30-5.90) m/uL Hgb 8.7 L (13.0-17.5) gm/dL Hct 26.4 L (39.0-53.0) % ABG pO2 132 H (83-108) mmHg ABG O2 Saturation 99.0 H (94-97) % BUN 60 H (9-20) mg/dL Creatinine 6.70 H* (0.66-1.25) mg/dL Glucose 103 H (74-99) mg/dL Phosphorus 6.3 H (2.5-4.5) mg/dL Magnesium 2.5 H (1.6-2.3) mg/dL Assessment and Plan (1) Anoxic encephalopathy Status: Acute Code(s): G93.1 - ANOXIC BRAIN DAMAGE, NOT ELSEWHERE CLASSIFIED (2) Acute hyperkalemia Status: Acute Code(s): E87.5 - HYPERKALEMIA (3) Acute respiratory failure Status: Acute Code(s): J96.00 - ACUTE RESPIRATORY FAILURE, UNSP W HYPOXIA OR HYPERCAPNIA (4) Alcoholic hepatitis Status: Acute Code(s): K70.10 - ALCOHOLIC HEPATITIS WITHOUT ASCITES (5) Sepsis Status: Acute Code(s): A41.9 - SEPSIS, UNSPECIFIED ORGANISM Plan: This patient is a 40-year-old right-handed white male was initially admitted to hospital after being found unresponsive at home. He was found to have evidence of severe alcohol abuse and delirium tremens. He was intubated and was treated for anoxic encephalopathy with myoclonic seizures. He is currently on Keppra monotherapy. His Keppra blood level came back therapeutic at 23.2 today. Patient was extubated on Sunday and is doing better and is following some simple commands. He has been placed on BiPAP today. He did have a repeat computed tomography scan of the brain yesterday for further evaluation. CAT scan was reported negative for any acute changes. Depending on how he responds we may consider a follow-up EEG as well. Patient has evidence of pulmonary edema as well as congestive heart failure. Nephrology is planning to do do dialysis for him today to remove fluid. His serum creatinine today is 6.70. His CK levels have been trending downwards. We will await further recommendations from nephrology. The patient is undergoing hemodialysis today in the ICU. We will await his repeat laboratory testing tomorrow morning. He has been placed on combination of Librium and Ativan due to agitation. His blood pressure and mental status have improved on this current treatment. He has continuing to use BiPAP at this time. Chest x-ray continues to reveal evidence of pulmonary edema. He will undergo repeat hemodialysis today and tomorrow. Nephrology is following his condition closely. He did require sedation yesterday evening as he was very agitated. His clinical findings are still consistent with a diffuse anoxic encephalopathy. We will continue close neurological follow-up with this patient in the intensive care unit. We will plan to get a repeat EEG tomorrow for further reevaluation of his mental status. His overall prognosis at this time remains very guarded.
--- NOTE | 2016-09-17 16:57 | P.PN ---
Subjective Principal diagnosis: Respiratory failure Patient seen and examined in the ICU with nursing staff at bedside. Patient has episodes of violent agitation. He thrashes around in the bed. He is not following commands or doing anything purposeful. The patient is currently getting hemodialysis. They have been able to remove 4 L of fluid. He does remain hypertensive. He has had no urine output. Objective - Vital Signs Vital signs: Vital Signs Temp 99.5 F 09/17/16 12:00 Pulse 115 H 09/17/16 16:10 Resp 24 09/17/16 16:00 BP 185/99 09/13/16 16:20 Pulse Ox 97 09/17/16 16:00 Intake & Output 09/16/16 09/17/16 09/17/16 18:59 06:59 18:59 Intake Total 410 340 350 Output Total 4000 60 Balance -3590 340 290 Weight 99.9 kg Intake: IV 410 340 200 0.9 @ KVO 260 240 200 Piperacillin-Tazobactam 3 50 .375 gm In Dextrose/Water 1 50ml.bag @ 12.5 mls/hr IVPB ONCE [facility] Rx#: [id number] levETIRAcetam IV 500 mg 100 100 In Sodium Chloride 0.9% 100 ml @ 400 mls/hr IVPB Q12HR [facility] Rx#:[id number] Intake, IV Titration 150 Amount Piperacillin-Tazobactam 3 50 .375 gm In Dextrose/Water 1 50ml.bag @ 12.5 mls/hr IVPB Q12H [facility] Rx#: [id number] levETIRAcetam IV 500 mg 100 In Sodium Chloride 0.9% 100 ml @ 400 mls/hr IVPB Q12HR [facility] Rx#:[id number] Output: Urine 60 Straight 30 Other 4000 Other: Voiding Method Incontinent Incontinent Incontinent # Bowel Movements 0 0 ABP, PAP, CO, CI - Last Documented Arterial Blood Pressure 190/80 - Exam Gen.: Patient is not following commands today. He moves his extremities and has had. He does nothing purposeful. Cardiovascular: Regular rate and rhythm, S1/S2, tachycardic Lungs: Diminished breath sounds at the bilateral bases Abdomen: Soft nontender nondistended positive bowel sounds Extremities: Anasarca is improving - Labs CBC & Chem 7: 09/17/16 04:30 09/17/16 04:30 Labs: Abnormal Lab Results - Last 24 Hours (Table) 09/17/16 09/17/16 09/17/16 Range/Units 04:23 04:30 04:30 WBC 11.8 H (3.8-10.6) k/uL RBC 2.74 L (4.30-5.90) m/uL Hgb 8.7 L (13.0-17.5) gm/dL Hct 26.4 L (39.0-53.0) % ABG pO2 132 H (83-108) mmHg ABG O2 Saturation 99.0 H (94-97) % BUN 60 H (9-20) mg/dL Creatinine 6.70 H* (0.66-1.25) mg/dL Glucose 103 H (74-99) mg/dL Phosphorus 6.3 H (2.5-4.5) mg/dL Magnesium 2.5 H (1.6-2.3) mg/dL Assessment and Plan Plan: Acute hypoxic respiratory failure requiring mechanical ventilation Severe refractory Shock, resolved Delirium tremens Toxic metabolic encephalopathy, concern for anoxic brain injury versus prolonged DTs Right lower lobe atelectasis, aspiration event Severe metabolic acidosis, anion gap with mixed respiratory acidosis Severe hyperkalemia Acute renal failure, requiring hemodialysis Rhabdomyolysis Lactic acidosis Possible seizure activity Hypomagnesemia Shock liver History of opiate and alcohol abuse Active tobacco abuse Continue BiPAP 12 over 5, titrate FiO2 for sats greater than or equal to 92%, ok to try off after HD Sports bed with chest PT Monitor labs Monitor urine output Will start low-dose Librium Will start Seroquel Ativan PRN seizure Antibiotics: Jessica Perez Neurology recommendations, repeat EEG tomorrow Pain control Nephrology recommendations for HD and BP control GI and DVT prophylaxis Multivitamin, thiamine, folate Tube feeds on hold for now Prognosis is very guarded. Continue to monitor mental status.
[2016-09-17] MEDS: LABETALOL 100 MG TAB PO SCH (19:58)
[2016-09-17] MEDS: QUEtiapine 25 MG TAB NG-TUBE SCH (20:10)
[2016-09-17] MEDS ORDERED: QUEtiapine 25 MG TAB PO SCH (21:00)
[2016-09-17] MEDS ORDERED: ALBUTEROL NEBULIZED 2.5 MG/3 ML INHALATION PRN (22:08)
[2016-09-18] MEDS: hydrALAZINE HCL 20 MG/ML 1 ML VIAL IVP PRN ×2 (00:19→05:59)
[2016-09-18] MEDS: ARTIFICIAL TEARS-HYPROMELLOSE DROPS 15 ML BTL BOTH EYES SCH ×5 (00:22→21:06)
[2016-09-18] MEDS: HEPARIN SODIUM,PORCINE 5,000 UNIT/ML 1 ML VIAL SQ SCH ×4 (00:39→23:02)
[2016-09-18] MEDS: LORazepam 2 MG/ML SYRINGE IV PRN (00:44)
[2016-09-18] MEDS: PIPERACILLIN-TAZOBACTAM 3.375 GM in DEXTROSE/WATER 1 50ML.BAG IVPB SCH ×3 (00:44→23:02)
[2016-09-18] MEDS: cloNIDine HCL 0.1 MG TAB PO SCH ×4 (01:10→21:19)
[2016-09-18] MEDS: HALOPERIDOL LACTATE 5 MG/ML 1 ML VIAL IM PRN ×4 (01:14→23:02)
[2016-09-18 04:50] LABS: CH 31.7; HCT 27.4 % (39.0-53.0); HDW 2.75; HGB 8.8 gm/dL (13.0-17.5); MCH 31.2 pg (25.0-35.0); MCHC 32.3 g/dL (31.0-37.0); MCV 96.6 fL (80.0-100.0); Mean Platelet Volume 8.9; RBC 2.83 m/uL (4.30-5.90); RDW 13.3 % (11.5-15.5); WBC 17.3 k/uL (3.8-10.6)
[2016-09-18 05:21] LABS: Calcium 8.8 mg/dL (8.4-10.2); Magnesium 2.9 mg/dL (1.6-2.3); Phosphorous 7.7 mg/dL (2.5-4.5); Potassium 4.8 mmol/L (3.5-5.1)
--- NOTE | 2016-09-18 07:41 | XR ---
EXAMINATION TYPE: XR chest 1V portable DATE OF EXAM: 09/18/2016 7:01 AM COMPARISON: NONE INDICATION: Short of breath TECHNIQUE: Single frontal view of the chest is obtained. FINDINGS: The heart size is normal. Pulmonary vasculature is prominent. Diffuse increased lung markings are present. Correlate for pulmonary edema and ARDS. Right side double-lumen catheter is present with the tips in the proximal right atrium. Nasogastric t ube transverses the thorax. IMPRESSION: 1. Correlate for pulmonary edema and ARDS.
[2016-09-18] MEDS: ALBUTEROL NEBULIZED 2.5 MG/3 ML INHALATION SCH ×4 (08:09→19:43)
[2016-09-18] MEDS: CALCIUM CARBONATE LIQUID 500 MG/5 ML CUP PO SCH ×3 (08:09→17:59)
[2016-09-18] MEDS: LABETALOL 100 MG TAB PO SCH ×2 (08:11→21:06)
[2016-09-18] MEDS: PANTOPRAZOLE 40 MG/10 ML VIAL IV SCH (08:11)
[2016-09-18] MEDS: QUEtiapine 25 MG TAB NG-TUBE SCH ×2 (08:12→21:06)
[2016-09-18] MEDS: levETIRAcetam IV 500 MG in SODIUM CHLORIDE 0.9% 100 ML IVPB SCH ×2 (08:15→21:06)
--- NOTE | 2016-09-18 09:47 | P.PN ---
Subjective Principal diagnosis: Patient is seen in follow-up for acute kidney injury. Unclear as to what his baseline renal function is. This admission he has been dialysis dependent. He did undergo hemodialysis yesterday with about 4 L of filtration. He currently has a permacath in place. He presented with severe rhabdomyolysis. He seems to have developed anoxic brain injury as well. He does respond to verbal commands at times however does get combative at times as well. Vital signs are stable. General: The patient appeared well nourished and normally developed. HEENT: Head exam is unremarkable. Neck is without jugular venous distension. LUNGS: Lungs are clear to auscultation and percussion. Breath sounds decreased. HEART: Rate and Rhythm are regular. First and second heart sounds normal. No murmurs, rubs or gallops. ABDOMEN: Abdominal exam reveals normal bowel sounds. Non-tender and non- distended. No evidence of peritonitis. EXTREMITITES: No clubbing, cyanosis, or edema. Objective - Vital Signs Vital signs: Vital Signs Temp 98.9 F 09/18/16 08:00 Pulse 107 H 09/18/16 09:00 Resp 20 09/18/16 09:00 BP 185/99 09/13/16 16:20 Pulse Ox 95 09/18/16 09:00 Intake & Output 09/17/16 09/18/16 09/18/16 18:59 06:59 18:59 Intake Total 390 410.0 140 Output Total 60 Balance 330 410.0 140 Weight 102.6 kg Intake: IV 240 410.0 140 0.9 @ KVO 240 260 40 Piperacillin-Tazobactam 3 50.0 .375 gm In Dextrose/Water 1 50ml.bag @ 12.5 mls/hr IVPB Q12H [facility] Rx#: [id number] levETIRAcetam IV 500 mg 100 100 In Sodium Chloride 0.9% 100 ml @ 400 mls/hr IVPB Q12HR [facility] Rx#:[id number] Intake, IV Titration 150 Amount Piperacillin-Tazobactam 3 50 .375 gm In Dextrose/Water 1 50ml.bag @ 12.5 mls/hr IVPB Q12H [facility] Rx#: [id number] levETIRAcetam IV 500 mg 100 In Sodium Chloride 0.9% 100 ml @ 400 mls/hr IVPB Q12HR [facility] Rx#:[id number] Output: Urine 60 Straight 30 Other: Voiding Method Incontinent Incontinent # Bowel Movements 1 ABP, PAP, CO, CI - Last Documented Arterial Blood Pressure 167/73 - Labs CBC & Chem 7: 09/18/16 04:39 09/18/16 04:39 Labs: Abnormal Lab Results - Last 24 Hours (Table) 09/18/16 09/18/16 09/18/16 Range/Units 04:39 04:39 05:37 WBC 17.3 H (3.8-10.6) k/uL RBC 2.83 L (4.30-5.90) m/uL Hgb 8.8 L (13.0-17.5) gm/dL Hct 27.4 L (39.0-53.0) % ABG Lactic Acid <0.5 L (0.5-1.6) mmol/L Carbon Dioxide 21 L (22-30) mmol/L BUN 95 H* (9-20) mg/dL Creatinine 9.20 H* (0.66-1.25) mg/dL Glucose 112 H (74-99) mg/dL Phosphorus 7.7 H (2.5-4.5) mg/dL Magnesium 2.9 H (1.6-2.3) mg/dL Assessment and Plan Plan: Assessment: #1. Oliguric acute kidney injury secondary to ischemic ATN secondary to rhabdomyolysis. Currently hemodialysis dependent. #2. Pulmonary edema. #3. Severe rhabdomyolysis. #4. Metabolic acidosis secondary to acute kidney injury. #5. Hyperphosphatemia secondary to oliguria/renal failure. #6. Hypocalcemia secondary to acute kidney injury as well as rhabdomyolysis. #7. Anemia. Rule out iron deficiency. #8. Anoxic brain injury. Plan: Hemodialysis today with goal 4 L ultrafiltration. Decrease calcium carbonate dose to twice daily. Once tube feedings are resumed, I will start him on PhosLo 3 times daily. Check iron studies. Repeat CK level in the morning.
[2016-09-18 10:33] LABS: % Iron Saturation 15.8 % (20-50)
--- NOTE | 2016-09-18 12:22 | P.PN ---
Subjective Principal diagnosis: Respiratory failure Patient seen and examined in the ICU with nursing staff and family at bedside. The patient is opening his eyes today to his name. She appears to be much more calm today. He is not yet following commands. Although nursing states he does intermittently. He will be getting hemodialysis again today. He was started on clonidine overnight for hypertension. His blood pressure is improved today. Objective - Vital Signs Vital signs: Vital Signs Temp 98.9 F 09/18/16 08:00 Pulse 90 09/18/16 11:00 Resp 17 09/18/16 11:00 BP 185/99 09/13/16 16:20 Pulse Ox 96 09/18/16 11:00 Intake & Output 09/17/16 09/18/16 09/18/16 18:59 06:59 18:59 Intake Total 390 410.0 180 Output Total 60 Balance 330 410.0 180 Weight 102.6 kg 102.6 kg Intake: IV 240 410.0 180 0.9 @ KVO 240 260 80 Piperacillin-Tazobactam 3 50.0 .375 gm In Dextrose/Water 1 50ml.bag @ 12.5 mls/hr IVPB Q12H [facility] Rx#: [id number] levETIRAcetam IV 500 mg 100 100 In Sodium Chloride 0.9% 100 ml @ 400 mls/hr IVPB Q12HR [facility] Rx#:[id number] Intake, IV Titration 150 Amount Piperacillin-Tazobactam 3 50 .375 gm In Dextrose/Water 1 50ml.bag @ 12.5 mls/hr IVPB Q12H [facility] Rx#: [id number] levETIRAcetam IV 500 mg 100 In Sodium Chloride 0.9% 100 ml @ 400 mls/hr IVPB Q12HR [facility] Rx#:[id number] Output: Urine 60 Straight 30 Other: Voiding Method Incontinent Incontinent # Bowel Movements 1 ABP, PAP, CO, CI - Last Documented Arterial Blood Pressure 124/65 - Exam Gen.: Patient is not following commands today. He is opening his eyes to his name today. Cardiovascular: Regular rate and rhythm, S1/S2, tachycardic Lungs: Diminished breath sounds at the bilateral bases Abdomen: Soft nontender nondistended positive bowel sounds Extremities: Anasarca is improving - Labs CBC & Chem 7: 09/18/16 04:39 09/18/16 04:39 Labs: Abnormal Lab Results - Last 24 Hours (Table) 09/18/16 09/18/16 09/18/16 Range/Units 04:39 04:39 04:39 WBC 17.3 H (3.8-10.6) k/uL RBC 2.83 L (4.30-5.90) m/uL Hgb 8.8 L (13.0-17.5) gm/dL Hct 27.4 L (39.0-53.0) % ABG Lactic Acid (0.5-1.6) mmol/L Carbon Dioxide 21 L (22-30) mmol/L BUN 95 H* (9-20) mg/dL Creatinine 9.20 H* (0.66-1.25) mg/dL Glucose 112 H (74-99) mg/dL Phosphorus 7.7 H (2.5-4.5) mg/dL Magnesium 2.9 H (1.6-2.3) mg/dL Iron 36 L (49-181) ug/dL TIBC 228 L (261-462) ug/dL % Saturation 15.8 L (20-50) % Ferritin 639 H (18-464) ng/mL 09/18/16 Range/Units 05:37 WBC (3.8-10.6) k/uL RBC (4.30-5.90) m/uL Hgb (13.0-17.5) gm/dL Hct (39.0-53.0) % ABG Lactic Acid <0.5 L (0.5-1.6) mmol/L Carbon Dioxide (22-30) mmol/L BUN (9-20) mg/dL Creatinine (0.66-1.25) mg/dL Glucose (74-99) mg/dL Phosphorus (2.5-4.5) mg/dL Magnesium (1.6-2.3) mg/dL Iron (49-181) ug/dL TIBC (261-462) ug/dL % Saturation (20-50) % Ferritin (18-464) ng/mL Assessment and Plan Plan: Acute hypoxic respiratory failure Severe refractory Shock, resolved Delirium tremens Toxic metabolic encephalopathy, concern for anoxic brain injury versus prolonged DTs Right lower lobe atelectasis, aspiration event Severe metabolic acidosis, anion gap with mixed respiratory acidosis Severe hyperkalemia Acute renal failure, requiring hemodialysis Rhabdomyolysis Lactic acidosis Possible seizure activity Hypomagnesemia Shock liver History of opiate and alcohol abuse Active tobacco abuse Continue BiPAP 12 over 5, titrate FiO2 for sats greater than or equal to 92%, ok to try off after HD Sports bed with chest PT Monitor labs Monitor urine output Continue low-dose Librium Continue Seroquel Ativan PRN seizure Antibiotics: Jessica Perez Neurology recommendations, repeat EEG tomorrow Pain control Nephrology recommendations for HD and BP control Clonidine and labetalol scheduled. Hydralazine as needed. GI and DVT prophylaxis Multivitamin, thiamine, folate restart tube feeds today. Plan for EEG today after hemodialysis. Prognosis is very guarded. Continue to monitor mental status.
[2016-09-18] MEDS: MULTIVITAMINS, THERA LIQUID 237 ML BOTTLE OG-TUBE SCH (12:55)
[2016-09-18] MEDS: FOLIC ACID 1 MG TAB OG-TUBE SCH (12:55)
[2016-09-18] MEDS: THIAMINE 100 MG TAB OG-TUBE SCH (12:56)
[2016-09-18] MEDS ORDERED: HEPARIN SODIUM,PORCINE 5,000 UNIT/ML 1 ML VIAL ONE (14:30)
--- NOTE | 2016-09-18 18:55 | P.PN ---
Subjective This patient is a 40-year-old right-handed white male was initially admitted to hospital after being found unresponsive at his home. He was subsequent admitted and found to have evidence of acute renal failure with ATN from rhabdomyolysis. He is being followed closely by nephrology. He was extubated on 09/15/2016. He had evidence yesterday of pulmonary edema and was undergoing dialysis yesterday at which time 4 L were taken off. Repeat chest x- ray looks unchanged with the pulmonary edema and he is to have dialysis again today as per nephrology. The patient remains anuric. His serum creatinine is still elevated at 9.20 today. He did have dialysis today most likely will need ongoing hemodialysis for treatment. We will await further recommendations from nephrology. We will need to continue close monitoring of his electrolyte status closely. The patient neurologically show no significant changes. His mental status is slightly improved today. He is off of the BiPAP this evening and does arouse to sternal rub and opens his eyes. He does try to answer questions by nodding his head. He is on Keppra as he had evidence of myoclonus and or delirium tremens initially on admission. Apparently yesterday evening he became very agitated and required Librium and one dose of Haldol. His Keppra level has been checked and is therapeutic range. The patient did have a follow-up EEG test done today. We reviewed the EEG today and it does reveal good background of 7 Hz. This is slightly improved from his initial EEG test done on 09/11/2016. Clinically he is showing improvement in his ental status today for the first time. Concern is still that he remains on hemodialysis and does not show very good urine output. Nephrology is following the patient closely. He is being followed by multiple consultants. We will continue close neurological follow-up for the patient in the ICU setting. His overall prognosis at this time remains very guarded. Objective - Vital Signs Vital signs: Vital Signs Temp 99.0 F 09/18/16 16:00 Pulse 95 09/18/16 17:00 Resp 18 09/18/16 17:00 BP 185/99 09/13/16 16:20 Pulse Ox 96 09/18/16 17:00 Intake & Output 09/17/16 09/18/16 09/18/16 18:59 06:59 18:59 Intake Total 390 410.0 397.5 Output Total 60 Balance 330 410.0 397.5 Weight 102.6 kg 102.6 kg Intake: IV 240 410.0 337.5 0.9 @ KVO 240 260 200 Piperacillin-Tazobactam 3 50.0 37.5 .375 gm In Dextrose/Water 1 50ml.bag @ 12.5 mls/hr IVPB Q12H [facility] Rx#: [id number] levETIRAcetam IV 500 mg 100 100 In Sodium Chloride 0.9% 100 ml @ 400 mls/hr IVPB Q12HR [facility] Rx#:[id number] Intake, IV Titration 150 Amount Piperacillin-Tazobactam 3 50 .375 gm In Dextrose/Water 1 50ml.bag @ 12.5 mls/hr IVPB Q12H [facility] Rx#: [id number] levETIRAcetam IV 500 mg 100 In Sodium Chloride 0.9% 100 ml @ 400 mls/hr IVPB Q12HR [facility] Rx#:[id number] Tube Feeding 30 Other 30 Output: Urine 60 Straight 30 Other: Voiding Method Incontinent Incontinent # Bowel Movements 1 1 ABP, PAP, CO, CI - Last Documented Arterial Blood Pressure 156/68 - Exam Physical examination: PHYSICAL EXAMINATION: Patient is resting comfortably in bed. VITAL SIGNS: Blood pressure is [152/67]. Heart rate is [93]. Respiration is [15] . Temperature is [99.0]. HEENT: Head is atraumatic, neck is supple, there were no carotid bruits. CHEST: Lungs are clear to auscultation and percussion. CARDIAC: S1, S2 normal rate and rhythm. There is no murmur. ABDOMEN: Soft and nontender. Bowel sounds are present. EXTREMITIES: There is no pedal edema. Peripheral pulses are present. Neurological examination: Patient resting comfortably in the ICU. He does not require BiPAP at this time. He does open his eyes and follows some simple commands. He is moving all 4 extremities. Deep tendon reflexes are brisk in both upper and lower extremities. Plantar responses flexor bilaterally. Coordination gait cannot be assessed in this patient at this time. - Labs CBC & Chem 7: 09/18/16 04:39 09/18/16 04:39 Labs: Abnormal Lab Results - Last 24 Hours (Table) 09/18/16 09/18/16 09/18/16 Range/Units 04:39 04:39 04:39 WBC 17.3 H (3.8-10.6) k/uL RBC 2.83 L (4.30-5.90) m/uL Hgb 8.8 L (13.0-17.5) gm/dL Hct 27.4 L (39.0-53.0) % ABG Lactic Acid (0.5-1.6) mmol/L Carbon Dioxide 21 L (22-30) mmol/L BUN 95 H* (9-20) mg/dL Creatinine 9.20 H* (0.66-1.25) mg/dL Glucose 112 H (74-99) mg/dL Phosphorus 7.7 H (2.5-4.5) mg/dL Magnesium 2.9 H (1.6-2.3) mg/dL Iron 36 L (49-181) ug/dL TIBC 228 L (261-462) ug/dL % Saturation 15.8 L (20-50) % Ferritin 639 H (18-464) ng/mL 09/18/16 Range/Units 05:37 WBC (3.8-10.6) k/uL RBC (4.30-5.90) m/uL Hgb (13.0-17.5) gm/dL Hct (39.0-53.0) % ABG Lactic Acid <0.5 L (0.5-1.6) mmol/L Carbon Dioxide (22-30) mmol/L BUN (9-20) mg/dL Creatinine (0.66-1.25) mg/dL Glucose (74-99) mg/dL Phosphorus (2.5-4.5) mg/dL Magnesium (1.6-2.3) mg/dL Iron (49-181) ug/dL TIBC (261-462) ug/dL % Saturation (20-50) % Ferritin (18-464) ng/mL Assessment and Plan (1) Anoxic encephalopathy Status: Acute Code(s): G93.1 - ANOXIC BRAIN DAMAGE, NOT ELSEWHERE CLASSIFIED (2) Acute hyperkalemia Status: Acute Code(s): E87.5 - HYPERKALEMIA (3) Acute respiratory failure Status: Acute Code(s): J96.00 - ACUTE RESPIRATORY FAILURE, UNSP W HYPOXIA OR HYPERCAPNIA (4) Alcoholic hepatitis Status: Acute Code(s): K70.10 - ALCOHOLIC HEPATITIS WITHOUT ASCITES (5) Sepsis Status: Acute Code(s): A41.9 - SEPSIS, UNSPECIFIED ORGANISM Plan: This patient is a 40-year-old male who is being followed closely in intensive care unit for the past 1 week. He has shown slight improvement in his mental status today. He has remained off of BiPAP and does open his eyes spontaneously. He is still not following commands. He did undergo hemodialysis today and they were able to remove 4 L. He is being treated for pulmonary edema and possible ARDS. He remains on hemodialysis as he has very little urine output. His creatinine earlier today was 9.20. Nephrology is monitoring his condition very closely. Patient did have a repeat EEG today the results of which are noted above. EEG continues to show good neurological function with no epileptic discharges. He is currently on Keppra for treatment of initial myoclonus. Once he is more awake we will consider reducing and slowly weaning him off Keppra as his mental status improves. His overall prognosis at this time remains very guarded. Case was discussed at length with the patient's nurse at bedside. We will continue close observation of this patient in the ICU setting. His overall prognosis at this time remains guarded.
[2016-09-19] MEDS: hydrALAZINE HCL 20 MG/ML 1 ML VIAL IVP PRN ×3 (00:45→22:35)
[2016-09-19 05:33] LABS: CH 31.9; CHCM 33.3; HCT 24.5 % (39.0-53.0); HGB 7.9 gm/dL (13.0-17.5); MCH 30.9 pg (25.0-35.0); MCHC 32.1 g/dL (31.0-37.0); MCV 96.1 fL (80.0-100.0); Mean Platelet Volume 8.8; RBC 2.55 m/uL (4.30-5.90); RDW 13.3 % (11.5-15.5); WBC 15.3 k/uL (3.8-10.6)
[2016-09-19 05:43] LABS: Calcium 8.7 mg/dL (8.4-10.2); Magnesium 2.7 mg/dL (1.6-2.3); Phosphorous 6.4 mg/dL (2.5-4.5); Potassium 4.2 mmol/L (3.5-5.1)
[2016-09-19] MEDS: ALBUTEROL NEBULIZED 2.5 MG/3 ML INHALATION SCH ×4 (07:18→19:04)
--- NOTE | 2016-09-19 08:12 | EEG ---
DATE OF SERVICE: 09/18/[address] Sanabria. CONSULTING INTERPRETING PHYSICIAN: Dr. Hunter Sanchez INDICATIONS FOR EXAMINATION: This patient is a 40-year-old male being evaluated for anoxic encephalopathy following unresponsive state and alcohol abuse. Patient with severe respiratory failure and rhabdomyolysis. This is a follow-up EEG for comparison. AGE: 40Y EEG FINDINGS: A routine 21-channel, awake digital EEG recording was accomplished utilizing the 10 to 20 international system with bipolar and referential montages. The background activity in the most alert resting state consists of a low to medium amplitude, fairly well-developed and well sustained 7 Hz activity over the posterior head regions. This posterior rhythm attenuates to eye opening. There is a moderate amount of low amplitude 18 to 20 Hz beta activity seen maximally over the anterior head regions. Muscle and movement artifact was observed on a few occasions during the tracing. Hyperventilation was not performed. Photic stimulation at flash frequencies of 2 to 30 Hz produced a good symmetrical occipital driving response. Towards the latter portion of the tracing, the patient does drift into spontaneous drowsiness. No epileptiform discharges were seen. IMPRESSION: This EEG is mildly abnormal in a diffuse fashion due to slight slowing of the EEG background. The EEG failed to reveal any focal, lateralized or epileptiform abnormalities. Compared to a previous EEG performed on 09/11/2016, there is slight improvement in the EEG background. Clinical correlation is recommended.
[2016-09-19] MEDS: QUEtiapine 25 MG TAB NG-TUBE SCH ×2 (09:13→20:03)
[2016-09-19] MEDS: LABETALOL 100 MG TAB PO SCH ×2 (09:13→20:03)
[2016-09-19] MEDS: CALCIUM CARBONATE LIQUID 500 MG/5 ML CUP PO SCH ×2 (09:13→16:19)
[2016-09-19] MEDS: cloNIDine HCL 0.1 MG TAB PO SCH ×3 (09:13→21:07)
[2016-09-19] MEDS: HEPARIN SODIUM,PORCINE 5,000 UNIT/ML 1 ML VIAL SQ SCH ×2 (09:14→16:18)
[2016-09-19] MEDS: ARTIFICIAL TEARS-HYPROMELLOSE DROPS 15 ML BTL BOTH EYES SCH ×4 (09:14→22:00)
[2016-09-19] MEDS: PANTOPRAZOLE 40 MG/10 ML VIAL IV SCH (09:14)
[2016-09-19] MEDS: levETIRAcetam IV 500 MG in SODIUM CHLORIDE 0.9% 100 ML IVPB SCH ×2 (09:18→20:03)
--- NOTE | 2016-09-19 11:02 | P.PN ---
Subjective Principal diagnosis: Patient is seen in follow-up for acute kidney injury. Unclear as to what his baseline renal function is. This admission he has been dialysis dependent. He did undergo hemodialysis yesterday with about 4 L of filtration. He currently has a permacath in place. He presented with severe rhabdomyolysis. He seems to have developed anoxic brain injury as well. He is much more awake and alert today. He is responding to verbal commands. Vital signs are stable. General: The patient appeared well nourished and normally developed. HEENT: Head exam is unremarkable. Neck is without jugular venous distension. LUNGS: Lungs are clear to auscultation and percussion. Breath sounds decreased. HEART: Rate and Rhythm are regular. First and second heart sounds normal. No murmurs, rubs or gallops. ABDOMEN: Abdominal exam reveals normal bowel sounds. Non-tender and non- distended. No evidence of peritonitis. EXTREMITITES: No clubbing, cyanosis, or edema. Objective - Vital Signs Vital signs: Vital Signs Temp 100.1 F H 09/19/16 09:00 Pulse 90 09/19/16 10:00 Resp 22 09/19/16 10:00 BP 185/99 09/13/16 16:20 Pulse Ox 92 L 09/19/16 10:00 Intake & Output 09/18/16 09/19/16 09/19/16 18:59 06:59 18:59 Intake Total 490.0 720.0 470 Output Total 0 0 Balance 490.0 720.0 470 Weight 102.6 kg 98.6 kg Intake: IV 370.0 350.0 170 0.9 @ KVO 220 200 70 Piperacillin-Tazobactam 3 50.0 50.0 .375 gm In Dextrose/Water 1 50ml.bag @ 12.5 mls/hr IVPB Q12H [facility] Rx#: [id number] levETIRAcetam IV 500 mg 100 100 100 In Sodium Chloride 0.9% 100 ml @ 400 mls/hr IVPB Q12HR [facility] Rx#:[id number] Tube Feeding 90 310 170 Other 30 60 130 Output: Urine 0 0 Other: Voiding Method Incontinent # Voids 0 0 # Bowel Movements 1 1 ABP, PAP, CO, CI - Last Documented Arterial Blood Pressure 161/65 - Labs CBC & Chem 7: 09/19/16 05:10 09/19/16 05:10 Labs: Abnormal Lab Results - Last 24 Hours (Table) 09/18/16 09/19/16 09/19/16 Range/Units 04:39 05:10 05:10 WBC 15.3 H (3.8-10.6) k/uL RBC 2.55 L (4.30-5.90) m/uL Hgb 7.9 L (13.0-17.5) gm/dL Hct 24.5 L (39.0-53.0) % Carbon Dioxide 21 L (22-30) mmol/L BUN 87 H* (9-20) mg/dL Creatinine 8.03 H* (0.66-1.25) mg/dL Glucose 119 H (74-99) mg/dL Phosphorus 6.4 H (2.5-4.5) mg/dL Magnesium 2.7 H (1.6-2.3) mg/dL Iron 36 L (49-181) ug/dL TIBC 228 L (261-462) ug/dL % Saturation 15.8 L (20-50) % Ferritin 639 H (18-464) ng/mL Creatine Kinase 992 H (55-170) U/L Assessment and Plan Plan: Assessment: #1. Oliguric acute kidney injury secondary to ischemic ATN secondary to rhabdomyolysis. Currently hemodialysis dependent. #2. Pulmonary edema. #3. Severe rhabdomyolysis. #4. Metabolic acidosis secondary to acute kidney injury. #5. Hyperphosphatemia secondary to oliguria/renal failure. #6. Hypocalcemia secondary to acute kidney injury as well as rhabdomyolysis. Improved. #7. Anemia. Iron deficiency present. #8. Anoxic brain injury. Plan: Hemodialysis tomorrow with goal 4 L ultrafiltration. Maintain calcium carbonate twice daily. Ferrlecit 125 mg IV daily for 3 days. Expect further improvement of hyperphosphatemia with dialysis.
[2016-09-19] MEDS: THIAMINE 100 MG TAB OG-TUBE SCH (12:35)
[2016-09-19] MEDS: MULTIVITAMINS, THERA LIQUID 237 ML BOTTLE OG-TUBE SCH (12:35)
[2016-09-19] MEDS: FOLIC ACID 1 MG TAB OG-TUBE SCH (12:35)
[2016-09-19] MEDS: SODIUM FERRIC GLUCONAT-SUCROSE 125 MG in SODIUM CHLORIDE 0.9% 100 ML IVPB SCH (12:35)
[2016-09-19] MEDS: LORazepam 2 MG/ML SYRINGE IV PRN ×3 (12:53→22:25)
[2016-09-19] MEDS: PIPERACILLIN-TAZOBACTAM 3.375 GM in DEXTROSE/WATER 1 50ML.BAG IVPB SCH ×2 (13:13→23:10)
[2016-09-19] MEDS: HALOPERIDOL LACTATE 5 MG/ML 1 ML VIAL IM PRN (15:06)
--- NOTE | 2016-09-19 16:53 | P.PN ---
Subjective Principal diagnosis: Hypoxemia patient seen and examined in the ICU with nursing staff and family at bedside. Patient is much more alert today. He is trying to talk and he is following commands. The patient has been hemodynamically stable. He is currently on BiPAP due to increased work of breathing. Per nephrology plan for hemodialysis again today. Patient is tolerating tube feeds. Objective - Vital Signs Vital signs: Vital Signs Temp 99 F 09/19/16 12:00 Pulse 103 H 09/19/16 16:00 Resp 28 H 09/19/16 16:00 BP 185/99 09/13/16 16:20 Pulse Ox 98 09/19/16 16:00 Intake & Output 09/18/16 09/19/16 09/19/16 18:59 06:59 18:59 Intake Total 490.0 720.0 920 Output Total 0 25 Balance 490.0 720.0 895 Weight 102.6 kg 98.6 kg Intake: IV 370.0 350.0 220 0.9 @ KVO 220 200 120 Piperacillin-Tazobactam 3 50.0 50.0 .375 gm In Dextrose/Water 1 50ml.bag @ 12.5 mls/hr IVPB Q12H [facility] Rx#: [id number] levETIRAcetam IV 500 mg 100 100 100 In Sodium Chloride 0.9% 100 ml @ 400 mls/hr IVPB Q12HR [facility] Rx#:[id number] Tube Feeding 90 310 410 Other 30 60 290 Output: Urine 0 25 Straight 25 Other: Voiding Method Incontinent # Voids 0 0 # Bowel Movements 1 1 2 ABP, PAP, CO, CI - Last Documented Arterial Blood Pressure 186/67 - Exam Gen.: Patient is following commands today. He is opening his eyes to his name and trying to talk Cardiovascular: Regular rate and rhythm, S1/S2, tachycardic Lungs: Coarse breath sounds bilaterally Abdomen: Soft nontender nondistended positive bowel sounds Extremities: Anasarca is improving - Labs CBC & Chem 7: 09/19/16 05:10 09/19/16 05:10 Labs: Abnormal Lab Results - Last 24 Hours (Table) 09/19/16 09/19/16 Range/Units 05:10 05:10 WBC 15.3 H (3.8-10.6) k/uL RBC 2.55 L (4.30-5.90) m/uL Hgb 7.9 L (13.0-17.5) gm/dL Hct 24.5 L (39.0-53.0) % Carbon Dioxide 21 L (22-30) mmol/L BUN 87 H* (9-20) mg/dL Creatinine 8.03 H* (0.66-1.25) mg/dL Glucose 119 H (74-99) mg/dL Phosphorus 6.4 H (2.5-4.5) mg/dL Magnesium 2.7 H (1.6-2.3) mg/dL Creatine Kinase 992 H (55-170) U/L Assessment and Plan Plan: Acute hypoxic respiratory failure Severe refractory Shock, resolved Delirium tremens Toxic metabolic encephalopathy, concern for anoxic brain injury versus prolonged DTs Right lower lobe atelectasis, aspiration event Severe metabolic acidosis, anion gap with mixed respiratory acidosis Severe hyperkalemia Acute renal failure, requiring hemodialysis Rhabdomyolysis Lactic acidosis Possible seizure activity Hypomagnesemia Shock liver History of opiate and alcohol abuse Active tobacco abuse Continue BiPAP 12 over 5, titrate FiO2 for sats greater than or equal to 92%, ok to try off after HD Sports bed with chest PT Monitor labs Monitor urine output Continue low-dose Librium Continue Seroquel Ativan PRN seizure Antibiotics: Jessica Perez Neurology recommendations Pain control Nephrology recommendations for HD and BP control Clonidine and labetalol scheduled. Hydralazine as needed. GI and DVT prophylaxis Multivitamin, thiamine, folate Continue tube feeds Limit fluid intake Prognosis is very guarded. Continue to monitor mental status.
--- NOTE | 2016-09-19 20:51 | P.PN ---
Subjective This patient is a 40-year-old right-handed white male was initially admitted to hospital after being found unresponsive at his home. He was subsequent admitted and found to have evidence of acute renal failure with ATN from rhabdomyolysis. He is being followed closely by nephrology. He was extubated on 09/15/2016. He had evidence yesterday of pulmonary edema and was undergoing dialysis yesterday at which time 4 L were taken off. Repeat chest x- ray looks unchanged with the pulmonary edema and he is to have dialysis again today as per nephrology. The patient remains anuric. His serum creatinine is still elevated at 9.20 today. He did have dialysis today most likely will need ongoing hemodialysis for treatment. We will await further recommendations from nephrology. We will need to continue close monitoring of his electrolyte status closely. The patient neurologically show no significant changes. His mental status is slightly improved today. He is off of the BiPAP this evening and does arouse to sternal rub and opens his eyes. He does try to answer questions by nodding his head. He is on Keppra as he had evidence of myoclonus and or delirium tremens initially on admission. Apparently yesterday evening he became very agitated and required Ativan and one dose of Haldol. His Keppra level has been checked and is therapeutic range. The patient did have a follow- up EEG test done yesterday. We reviewed the EEG today and it does reveal good background of 7 Hz. This is slightly improved from his initial EEG test done on 09/11/2016. Clinically he is showing improvement in his mental status today for the first time. Concern is still that he remains on hemodialysis and does not show very good urine output. Nephrology is following the patient closely. Patient's girlfriend was at bedside. She states this morning he was showing significant improvement in his mental status. He was answering questions appropriately as well. This evening after hemodialysis he once again is somewhat lethargic and slightly confused. Overall he however shows improvement in mental status for the first time today since his initial admission to the ICU. We will begin to reduce his Keppra today and continue close monitoring in the ICU setting. He is being followed by multiple consultants. We will continue close neurological follow-up for the patient in the ICU setting. His overall prognosis at this time remains very guarded. Objective - Vital Signs Vital signs: Vital Signs Temp 99 F 09/19/16 12:00 Pulse 101 H 09/19/16 19:14 Resp 28 H 09/19/16 19:00 BP 185/99 09/13/16 16:20 Pulse Ox 98 09/19/16 19:08 Intake & Output 09/19/16 09/19/16 09/20/16 06:59 18:59 06:59 Intake Total 720.0 1010 50 Output Total 0 4025 Balance 720.0 -3015 50 Weight 98.6 kg Intake: IV 350.0 240 10 0.9 @ KVO 200 140 10 Piperacillin-Tazobactam 3 50.0 .375 gm In Dextrose/Water 1 50ml.bag @ 12.5 mls/hr IVPB Q12H [facility] Rx#: [id number] levETIRAcetam IV 500 mg 100 100 In Sodium Chloride 0.9% 100 ml @ 400 mls/hr IVPB Q12HR [facility] Rx#:[id number] Tube Feeding 310 480 40 Other 60 290 Output: Urine 0 25 Straight 25 Other 4000 Other: Voiding Method Incontinent # Voids 0 0 # Bowel Movements 1 2 ABP, PAP, CO, CI - Last Documented Arterial Blood Pressure 178/62 - Exam Physical examination: PHYSICAL EXAMINATION: Patient is resting comfortably in bed. He is off of BiPAP and has only nasal oxygen at this time. VITAL SIGNS: Blood pressure is [178/62]. Heart rate is [100]. Respiration is [28 ]. Temperature is [99.0]. HEENT: Head is atraumatic, neck is supple, there were no carotid bruits. CHEST: Lungs are clear to auscultation and percussion. CARDIAC: S1, S2 normal rate and rhythm. There is no murmur. ABDOMEN: Soft and nontender. Bowel sounds are present. EXTREMITIES: There is no pedal edema. Peripheral pulses are present. Neurological examination: Patient resting comfortably in the ICU. He is resting comfortably and is opening his eyes. He is off of BiPAP at this time. He does seem to follow simple commands. He is more alert and oriented than yesterday. He does open his eyes and follows some simple commands. He is moving all 4 extremities. Deep tendon reflexes are brisk in both upper and lower extremities. Plantar responses flexor bilaterally. Coordination gait cannot be assessed in this patient at this time. - Labs CBC & Chem 7: 09/19/16 05:10 09/19/16 05:10 Labs: Abnormal Lab Results - Last 24 Hours (Table) 09/19/16 09/19/16 Range/Units 05:10 05:10 WBC 15.3 H (3.8-10.6) k/uL RBC 2.55 L (4.30-5.90) m/uL Hgb 7.9 L (13.0-17.5) gm/dL Hct 24.5 L (39.0-53.0) % Carbon Dioxide 21 L (22-30) mmol/L BUN 87 H* (9-20) mg/dL Creatinine 8.03 H* (0.66-1.25) mg/dL Glucose 119 H (74-99) mg/dL Phosphorus 6.4 H (2.5-4.5) mg/dL Magnesium 2.7 H (1.6-2.3) mg/dL Creatine Kinase 992 H (55-170) U/L Assessment and Plan (1) Anoxic encephalopathy Status: Acute Code(s): G93.1 - ANOXIC BRAIN DAMAGE, NOT ELSEWHERE CLASSIFIED (2) Acute hyperkalemia Status: Acute Code(s): E87.5 - HYPERKALEMIA (3) Acute respiratory failure Status: Acute Code(s): J96.00 - ACUTE RESPIRATORY FAILURE, UNSP W HYPOXIA OR HYPERCAPNIA (4) Alcoholic hepatitis Status: Acute Code(s): K70.10 - ALCOHOLIC HEPATITIS WITHOUT ASCITES (5) Sepsis Status: Acute Code(s): A41.9 - SEPSIS, UNSPECIFIED ORGANISM Plan: This patient is a 40-year-old male who is being followed in the intensive care unit for acute anoxic respiratory failure. Patient was taken off of the BiPAP this morning and was doing very well in terms of his mental status. He shown significant improvement according to his girlfriend who was with him earlier today. She is at bedside this evening and states following hemodialysis he is once again slightly confused but still able to answer simple questions. He is off of BiPAP at the time and is on nasal oxygen. He was only slightly agitated earlier during hemodialysis and required 1 dose of Ativan. As noted yesterday his repeat EEG did show slight improvement. We will begin to wean his Keppra slowly and we'll put him on just 500 mg daily now. We will continue to monitor his condition closely. He is going to require hemodialysis tomorrow as well. He has evidence of ischemic ATN secondary to rhabdomyolysis. Nephrology is following the patient closely. Most of his confusion was noted by his girlfriend only after hemodialysis today. We will need close monitoring of his condition in the ICU for any further changes in his mental status. His overall prognosis at this time remains very guarded. Case was discussed at length with the patient's girlfriend at bedside. All of her questions were answered. She is aware of his guarded condition.
[2016-09-20] MEDS: HEPARIN SODIUM,PORCINE 5,000 UNIT/ML 1 ML VIAL SQ SCH ×3 (00:20→15:38)
[2016-09-20 05:34] LABS: Basophils # (A) 0.1 k/uL (0-0.2); Basophils % (A) 0 %; CH 31.8; CHCM 33.6; Eosinophils # (A) 0.2 k/uL (0-0.7); Eosinophils % (A) 1 %; HCT 23.6 % (39.0-53.0); HDW 2.81; HGB 7.9 gm/dL (13.0-17.5); Luc # (Auto) 0.47; Luc % (Auto) 3; Lymphocytes # (A) 1.4 k/uL (1.0-4.8); Lymphocytes % (A) 10 %; MCH 31.6 pg (25.0-35.0); MCHC 33.3 g/dL (31.0-37.0); MCV 95.1 fL (80.0-100.0); Mean Platelet Volume 8.5; Monocytes # (A) 0.7 k/uL (0-1.0); Monocytes % (A) 5 %; Neutrophils # (A) 12.3 k/uL (1.3-7.7); Neutrophils % (A) 82 %; RBC 2.49 m/uL (4.30-5.90); RDW 13.6 % (11.5-15.5); WBC 15.1 k/uL (3.8-10.6); WBC (Perox) 15.66
[2016-09-20 05:41] LABS: Calcium 8.6 mg/dL (8.4-10.2); Magnesium 2.7 mg/dL (1.6-2.3); Phosphorous 4.9 mg/dL (2.5-4.5); Potassium 3.7 mmol/L (3.5-5.1)
[2016-09-20] MEDS: hydrALAZINE HCL 20 MG/ML 1 ML VIAL IVP PRN (06:57)
--- NOTE | 2016-09-20 07:01 | XR ---
EXAMINATION TYPE: XR chest 1V portable DATE OF EXAM: 09/20/2016 6:55 AM CLINICAL HISTORY: Difficulty breathing , pneumonia, pulmonary edema, and hypoxemia progress study. TECHNIQUE: Single AP portable upright view of the chest is obtained. COMPARISON: Chest x-ray from 2 days earlier FINDINGS: An orogastric tube and right internal jugular dual-lumen dialysis catheter are stable in a ppearance. Diffuse bilateral opacities felt to reflect edema and/or infiltrates are redemonstrated. N o pleural effusion or pneumothorax is seen bilaterally. Chronic silhouette size is stable and within normal limits. Osseous structures are intact. IMPRESSION: Overall stable findings, diffuse bilateral opacities favor alveolar edema, underlying i nfiltrates are not excluded. No significant change from prior study is seen. Early ARDS is in differe ntial.
[2016-09-20] MEDS: ALBUTEROL NEBULIZED 2.5 MG/3 ML INHALATION SCH ×4 (07:59→19:54)
[2016-09-20] MEDS: CALCIUM CARBONATE LIQUID 500 MG/5 ML CUP PO SCH ×2 (08:11→18:30)
[2016-09-20] MEDS: LABETALOL 100 MG TAB PO SCH ×2 (08:12→20:46)
[2016-09-20] MEDS: cloNIDine HCL 0.1 MG TAB PO SCH ×3 (08:12→20:46)
[2016-09-20] MEDS: ARTIFICIAL TEARS-HYPROMELLOSE DROPS 15 ML BTL BOTH EYES SCH ×4 (08:12→20:46)
[2016-09-20] MEDS: PANTOPRAZOLE 40 MG/10 ML VIAL IV SCH (08:13)
[2016-09-20] MEDS: QUEtiapine 25 MG TAB NG-TUBE SCH ×2 (08:28→20:46)
[2016-09-20] MEDS: levETIRAcetam IV 500 MG in SODIUM CHLORIDE 0.9% 100 ML IVPB SCH ×2 (08:30→20:46)
[2016-09-20] MEDS: SODIUM FERRIC GLUCONAT-SUCROSE 125 MG in SODIUM CHLORIDE 0.9% 100 ML IVPB SCH (10:04)
[2016-09-20] MEDS ORDERED: IV VANCOMYCIN PER PHARMACY 1 EACH MISC MISCELLANE PRN (11:44)
--- NOTE | 2016-09-20 11:46 | P.PN ---
Subjective Principal diagnosis: Hypoxia Patient seen and examined in the ICU with nursing staff and family at bedside. Patient is much more alert today. He is answering some questions. He was placed back on BiPAP overnight due to respiratory distress. He did have a temperature of 100.6 this morning. He remains hypertensive. Objective - Vital Signs Vital signs: Vital Signs Temp 100.6 F H 09/20/16 09:00 Pulse 94 09/20/16 09:00 Resp 39 H 09/20/16 09:00 BP 153/77 09/20/16 07:00 Pulse Ox 98 09/20/16 09:00 Intake & Output 09/19/16 09/20/16 09/20/16 18:59 06:59 18:59 Intake Total 1010 940.8 290 Output Total 4025 0 0 Balance -3015 940.8 290 Weight 98.6 kg Intake: IV 240 220.8 140 0.9 @ KVO 140 70 40 Piperacillin-Tazobactam 3 50.8 .375 gm In Dextrose/Water 1 50ml.bag @ 12.5 mls/hr IVPB Q12H [facility] Rx#: [id number] levETIRAcetam IV 500 mg 100 100 100 In Sodium Chloride 0.9% 100 ml @ 400 mls/hr IVPB Q12HR [facility] Rx#:[id number] Tube Feeding 480 600 150 Other 290 120 Output: Urine 25 0 0 Straight 25 Other 4000 Other: Voiding Method Incontinent Incontinent # Voids 0 0 # Bowel Movements 2 ABP, PAP, CO, CI - Last Documented Arterial Blood Pressure 169/62 - Exam Gen.: Patient is following commands today. He is opening his eyes to his name and trying to talk Cardiovascular: Regular rate and rhythm, S1/S2, tachycardic Lungs: Coarse breath sounds bilaterally Abdomen: Soft nontender nondistended positive bowel sounds Extremities: Anasarca is improving - Labs CBC & Chem 7: 09/20/16 05:05 09/20/16 05:05 Labs: Abnormal Lab Results - Last 24 Hours (Table) 09/20/16 09/20/16 Range/Units 05:05 05:05 WBC 15.1 H (3.8-10.6) k/uL RBC 2.49 L (4.30-5.90) m/uL Hgb 7.9 L (13.0-17.5) gm/dL Hct 23.6 L (39.0-53.0) % Neutrophils # 12.3 H (1.3-7.7) k/uL BUN 71 H (9-20) mg/dL Creatinine 6.70 H* (0.66-1.25) mg/dL Glucose 133 H (74-99) mg/dL Phosphorus 4.9 H (2.5-4.5) mg/dL Magnesium 2.7 H (1.6-2.3) mg/dL Assessment and Plan Plan: Acute hypoxic respiratory failure Severe refractory Shock, resolved Delirium tremens Toxic metabolic encephalopathy, concern for anoxic brain injury versus prolonged DTs Right lower lobe atelectasis, aspiration event Severe metabolic acidosis, anion gap with mixed respiratory acidosis Severe hyperkalemia Acute renal failure, requiring hemodialysis Rhabdomyolysis Lactic acidosis Possible seizure activity Hypomagnesemia Shock liver History of opiate and alcohol abuse Active tobacco abuse Continue BiPAP 12 over 5, titrate FiO2 for sats greater than or equal to 92%, ok to try off after HD Sports bed with chest PT Monitor labs Monitor urine output Continue low-dose Librium Continue Seroquel Ativan PRN seizure Keppra Neurology recommendations Pain control Nephrology recommendations for HD and BP control Clonidine and labetalol scheduled. Hydralazine as needed. GI and DVT prophylaxis Multivitamin, thiamine, folate Continue tube feeds Limit fluid intake Will add Solu-Medrol Change antibiotics to vancomycin and cefepime Repeat blood and sputum cultures Add Pulmicort Prognosis is very guarded. Continue to monitor mental status.
[2016-09-20] MEDS ORDERED: VANCOMYCIN 1,500 MG in SODIUM CHLORIDE 0.9% 250 ML IVPB ONE (12:00)
--- NOTE | 2016-09-20 13:31 | P.PN ---
Subjective Principal diagnosis: Patient is seen in follow-up for acute kidney injury. Unclear as to what his baseline renal function is. This admission he has been dialysis dependent. He did undergo hemodialysis yesterday with about 4 L of filtration. He currently has a permacath in place. He presented with severe rhabdomyolysis. He seems to have developed anoxic brain injury as well. He is awake this morning and does respond to verbal commands at times. He remains anuric. Vital signs are stable. General: The patient appeared well nourished and normally developed. HEENT: Head exam is unremarkable. Neck is without jugular venous distension. LUNGS: Lungs are clear to auscultation and percussion. Breath sounds decreased. HEART: Rate and Rhythm are regular. First and second heart sounds normal. No murmurs, rubs or gallops. ABDOMEN: Abdominal exam reveals normal bowel sounds. Non-tender and non- distended. No evidence of peritonitis. EXTREMITITES: No clubbing, cyanosis, or edema. Objective - Vital Signs Vital signs: Vital Signs Temp 100.6 F H 09/20/16 09:00 Pulse 94 09/20/16 09:00 Resp 39 H 09/20/16 09:00 BP 153/77 09/20/16 07:00 Pulse Ox 98 09/20/16 09:00 Intake & Output 09/19/16 09/20/16 09/20/16 18:59 06:59 18:59 Intake Total 1010 940.8 290 Output Total 4025 0 0 Balance -3015 940.8 290 Weight 98.6 kg Intake: IV 240 220.8 140 0.9 @ KVO 140 70 40 Piperacillin-Tazobactam 3 50.8 .375 gm In Dextrose/Water 1 50ml.bag @ 12.5 mls/hr IVPB Q12H [facility] Rx#: [id number] levETIRAcetam IV 500 mg 100 100 100 In Sodium Chloride 0.9% 100 ml @ 400 mls/hr IVPB Q12HR [facility] Rx#:[id number] Tube Feeding 480 600 150 Other 290 120 Output: Urine 25 0 0 Straight 25 Other 4000 Other: Voiding Method Incontinent Incontinent # Voids 0 0 # Bowel Movements 2 ABP, PAP, CO, CI - Last Documented Arterial Blood Pressure 169/62 - Labs CBC & Chem 7: 09/20/16 05:05 09/20/16 05:05 Labs: Abnormal Lab Results - Last 24 Hours (Table) 09/20/16 09/20/16 Range/Units 05:05 05:05 WBC 15.1 H (3.8-10.6) k/uL RBC 2.49 L (4.30-5.90) m/uL Hgb 7.9 L (13.0-17.5) gm/dL Hct 23.6 L (39.0-53.0) % Neutrophils # 12.3 H (1.3-7.7) k/uL BUN 71 H (9-20) mg/dL Creatinine 6.70 H* (0.66-1.25) mg/dL Glucose 133 H (74-99) mg/dL Phosphorus 4.9 H (2.5-4.5) mg/dL Magnesium 2.7 H (1.6-2.3) mg/dL Assessment and Plan Plan: Assessment: #1. Oliguric acute kidney injury secondary to ischemic ATN secondary to rhabdomyolysis. Currently hemodialysis dependent. #2. Pulmonary edema. #3. Severe rhabdomyolysis. #4. Metabolic acidosis secondary to acute kidney injury. #5. Hyperphosphatemia secondary to oliguria/renal failure. #6. Hypocalcemia secondary to acute kidney injury as well as rhabdomyolysis. Improved. #7. Anemia. Iron deficiency present. #8. Anoxic brain injury. Plan: Hemodialysis today with goal 4 L ultrafiltration. Maintain calcium carbonate twice daily. Ferrlecit 125 mg IV daily for 3 days. Neurology following. Maintained on Keppra. He remains anuric no evidence of renal recovery at this time.
[2016-09-20] MEDS: FOLIC ACID 1 MG TAB OG-TUBE SCH (13:57)
[2016-09-20] MEDS: MULTIVITAMINS, THERA LIQUID 237 ML BOTTLE OG-TUBE SCH (13:57)
[2016-09-20] MEDS: THIAMINE 100 MG TAB OG-TUBE SCH (13:57)
[2016-09-20] MEDS: methylPREDNISolone SOD SUCCI 40 MG/ML 1 ML VIAL IV SCH (15:39)
--- NOTE | 2016-09-20 16:30 | P.PN ---
Subjective This patient is a 40-year-old right-handed white male was initially admitted to hospital after being found unresponsive at his home. He was subsequent admitted and found to have evidence of acute renal failure with ATN from rhabdomyolysis. He is being followed closely by nephrology. He was extubated on 09/15/2016. He had evidence yesterday of pulmonary edema and was undergoing dialysis yesterday at which time 4 L were taken off. Repeat chest x- ray looks unchanged with the pulmonary edema and he is to have dialysis again today as per nephrology. The patient remains anuric. His serum creatinine is still elevated at 6.7 today. The creatinine is trending downwards. He did have dialysis today most likely will need ongoing hemodialysis for treatment. We will await further recommendations from nephrology. We will need to continue close monitoring of his electrolyte status closely. The patient neurologically show no significant changes. His mental status is slightly improved today. He is off of the BiPAP this evening and does arouse to sternal rub and opens his eyes. He does try to answer questions by nodding his head. He is on Keppra as he had evidence of myoclonus and or delirium tremens initially on admission. Apparently yesterday evening he became very agitated and required Ativan and one dose of Haldol. His Keppra level has been checked and is therapeutic range. The patient did have a follow-up EEG test. We reviewed the EEG and it does reveal good background of 7 Hz. This is slightly improved from his initial EEG test done on 09/11/2016. Clinically he is showing improvement in his mental status today for the first time. Concern is still that he remains on hemodialysis and does not show very good urine output. Nephrology is following the patient closely. Patient required BiPAP yesterday evening but today seems to be doing very well with nasal oxygen. He is less agitated and is following all simple commands. He is currently undergoing hemodialysis. As noted his creatinine is slowly coming down. He was answering questions appropriately as well. This evening after hemodialysis he once again is somewhat lethargic and slightly confused. Overall he however shows improvement in mental status for the first time today since his initial admission to the ICU. He is being followed by multiple consultants. We will continue close neurological follow-up for the patient in the ICU setting. His overall prognosis at this time remains very guarded. Patient has evidence of a improving anoxic encephalopathy following respiratory arrest. We will continue to follow his neurological status closely in the ICU setting. Objective - Vital Signs Vital signs: Vital Signs Temp 97.4 F L 09/20/16 12:00 Pulse 103 H 09/20/16 12:00 Resp 21 09/20/16 12:00 BP 153/77 09/20/16 07:00 Pulse Ox 93 L 09/20/16 13:00 Intake & Output 09/19/16 09/20/16 09/20/16 18:59 06:59 18:59 Intake Total 1010 940.8 580 Output Total 4025 0 3 Balance -3015 940.8 577 Weight 98.6 kg Intake: IV 240 220.8 180 0.9 @ KVO 140 70 80 Piperacillin-Tazobactam 3 50.8 .375 gm In Dextrose/Water 1 50ml.bag @ 12.5 mls/hr IVPB Q12H [facility] Rx#: [id number] levETIRAcetam IV 500 mg 100 100 100 In Sodium Chloride 0.9% 100 ml @ 400 mls/hr IVPB Q12HR [facility] Rx#:[id number] Tube Feeding 480 600 400 Other 290 120 Output: Urine 25 0 0 Straight 25 Stool 3 Other 4000 Other: Voiding Method Incontinent Incontinent # Voids 0 0 # Bowel Movements 2 ABP, PAP, CO, CI - Last Documented Arterial Blood Pressure 190/81 - Exam Physical examination: PHYSICAL EXAMINATION: Patient is resting comfortably in bed. He is off of BiPAP and has only nasal oxygen at this time. VITAL SIGNS: Blood pressure is [116/72]. Heart rate is [103]. Respiration is [21 ]. Temperature is [97.4]. HEENT: Head is atraumatic, neck is supple, there were no carotid bruits. CHEST: Lungs are clear to auscultation and percussion. CARDIAC: S1, S2 normal rate and rhythm. There is no murmur. ABDOMEN: Soft and nontender. Bowel sounds are present. EXTREMITIES: There is no pedal edema. Peripheral pulses are present. Neurological examination: Patient resting comfortably in the ICU. He is undergoing hemodialysis at this time. He is resting comfortably and is opening his eyes. He is off of BiPAP at this time. He does seem to follow simple commands. He is more alert and oriented than yesterday. He does open his eyes and follows some simple commands. He is moving all 4 extremities. Deep tendon reflexes are brisk in both upper and lower extremities. Plantar responses flexor bilaterally. Coordination gait cannot be assessed in this patient at this time. - Labs CBC & Chem 7: 09/20/16 05:05 09/20/16 05:05 Labs: Abnormal Lab Results - Last 24 Hours (Table) 09/20/16 09/20/16 Range/Units 05:05 05:05 WBC 15.1 H (3.8-10.6) k/uL RBC 2.49 L (4.30-5.90) m/uL Hgb 7.9 L (13.0-17.5) gm/dL Hct 23.6 L (39.0-53.0) % Neutrophils # 12.3 H (1.3-7.7) k/uL BUN 71 H (9-20) mg/dL Creatinine 6.70 H* (0.66-1.25) mg/dL Glucose 133 H (74-99) mg/dL Phosphorus 4.9 H (2.5-4.5) mg/dL Magnesium 2.7 H (1.6-2.3) mg/dL Assessment and Plan (1) Anoxic encephalopathy Status: Acute Code(s): G93.1 - ANOXIC BRAIN DAMAGE, NOT ELSEWHERE CLASSIFIED (2) Acute hyperkalemia Status: Acute Code(s): E87.5 - HYPERKALEMIA (3) Acute respiratory failure Status: Acute Code(s): J96.00 - ACUTE RESPIRATORY FAILURE, UNSP W HYPOXIA OR HYPERCAPNIA (4) Alcoholic hepatitis Status: Acute Code(s): K70.10 - ALCOHOLIC HEPATITIS WITHOUT ASCITES (5) Sepsis Status: Acute Code(s): A41.9 - SEPSIS, UNSPECIFIED ORGANISM Plan: This patient is a 40-year-old male who is being followed in the intensive care unit for acute anoxic respiratory failure. Patient was taken off of the BiPAP this morning and was doing very well in terms of his mental status. He shown significant improvement according to his girlfriend who was with him earlier today. She is at bedside this evening and states following hemodialysis he is once again slightly confused but still able to answer simple questions. He is off of BiPAP at the time and is on nasal oxygen. He was only slightly agitated earlier during hemodialysis and required 1 dose of Ativan. As noted yesterday his repeat EEG did show slight improvement. We will begin to wean his Keppra slowly and we will put him on just 500 mg daily now. We will continue to monitor his condition closely. He is going to require hemodialysis tomorrow as well. He has evidence of ischemic ATN secondary to rhabdomyolysis. Nephrology is following the patient closely. His creatinine today is 6.7. Patient is undergoing hemodialysis at this time in the ICU setting. We will wait for repeat laboratory testing to be done for him tomorrow morning. He does seem to be showing improvement in his overall mental status more so today than yesterday. We will need close monitoring of his condition in the ICU for any further changes in his mental status. Case was discussed today with the ICU nurse at bedside. We will continue close neurological follow-up this patient in the ICU.
[2016-09-20] MEDS ORDERED: HEPARIN SODIUM,PORCINE 5,000 UNIT/ML 1 ML VIAL ONE (18:00)
[2016-09-20 18:33] LABS: Glucose,Whole Blood 134 mg/dL (75-99)
[2016-09-20] MEDS: INSULIN LISPRO (humaLOG) 300 UNIT/3 ML VIAL SQ SCH (18:33)
[2016-09-20] MEDS: BUDESONIDE 0.5 MG/2 ML NEBU INHALATION SCH (19:54)
[2016-09-20] MEDS: CEFEPIME 1 GM in SODIUM CHLORIDE 0.9% 50 ML IVPB SCH (21:15)
[2016-09-20] MEDS: LORazepam 2 MG/ML SYRINGE IV PRN (23:32)
[2016-09-21] MEDS: INSULIN LISPRO (humaLOG) 300 UNIT/3 ML VIAL SQ SCH ×4 (00:07→17:24)
[2016-09-21] MEDS: HEPARIN SODIUM,PORCINE 5,000 UNIT/ML 1 ML VIAL SQ SCH ×3 (00:07→15:53)
[2016-09-21] MEDS: methylPREDNISolone SOD SUCCI 40 MG/ML 1 ML VIAL IV SCH ×3 (00:07→21:29)
[2016-09-21 00:08] LABS: Glucose,Whole Blood 194 mg/dL (75-99)
[2016-09-21] MEDS: LORazepam 2 MG/ML SYRINGE IV PRN ×2 (01:24→05:21)
[2016-09-21] MEDS: hydrALAZINE HCL 20 MG/ML 1 ML VIAL IVP PRN (04:47)
[2016-09-21 04:57] LABS: Glucose,Whole Blood 163 mg/dL (75-99)
[2016-09-21 05:03] LABS: Basophils % (A) 0 %; CHCM 33.8; Eosinophils % (A) 0 %; HCT 23.1 % (39.0-53.0); HDW 2.84; HGB 7.5 gm/dL (13.0-17.5); Luc # (Auto) 0.12; Luc % (Auto) 1; Lymphocytes # (A) 0.6 k/uL (1.0-4.8); Lymphocytes % (A) 3 %; MCHC 32.7 g/dL (31.0-37.0); Mean Platelet Volume 10.5; Monocytes # (A) 0.5 k/uL (0-1.0); Monocytes % (A) 3 %; Neutrophils # (A) 14.9 k/uL (1.3-7.7); Neutrophils % (A) 92 %; RBC 2.43 m/uL (4.30-5.90); RDW 13.8 % (11.5-15.5); WBC 16.2 k/uL (3.8-10.6); WBC (Perox) 17.09
[2016-09-21 05:29] LABS: Calcium 8.8 mg/dL (8.4-10.2); Magnesium 2.7 mg/dL (1.6-2.3); Potassium 4.4 mmol/L (3.5-5.1)
--- NOTE | 2016-09-21 07:20 | XR ---
EXAMINATION TYPE: XR chest 1V portable DATE OF EXAM: 09/21/2016 6:35 AM Comparison: 09/20/2016 Clinical History: 40-year-old male hypoxemia, pulmonary edema, pneumonia Findings: NG tube courses below the diaphragm. Right-sided double-lumen hemodialysis catheter with tips in the upper right atrium. Heart remains upper limits of normal in size with a diffuse interstitial and airspace opacities thoug h aeration has slightly improved in the lower lungs. No significant pleural effusion. Impression: Continued but improving diffuse bilateral interstitial and airspace disease suggesting pulmonary efrain a. Underlying infiltrates not excluded.
[2016-09-21] MEDS: ALBUTEROL NEBULIZED 2.5 MG/3 ML INHALATION SCH ×4 (07:40→19:15)
[2016-09-21] MEDS: BUDESONIDE 0.5 MG/2 ML NEBU INHALATION SCH ×2 (07:40→19:15)
[2016-09-21] MEDS: CALCIUM CARBONATE LIQUID 500 MG/5 ML CUP PO SCH ×2 (08:12→16:35)
[2016-09-21] MEDS: ARTIFICIAL TEARS-HYPROMELLOSE DROPS 15 ML BTL BOTH EYES SCH ×2 (08:14→12:01)
[2016-09-21] MEDS: QUEtiapine 25 MG TAB NG-TUBE SCH (08:15)
[2016-09-21] MEDS: LABETALOL 100 MG TAB PO SCH ×2 (08:15→21:29)
[2016-09-21] MEDS: cloNIDine HCL 0.1 MG TAB PO SCH ×3 (08:15→21:30)
[2016-09-21] MEDS: PANTOPRAZOLE 40 MG/10 ML VIAL IV SCH (08:15)
[2016-09-21] MEDS: SODIUM FERRIC GLUCONAT-SUCROSE 125 MG in SODIUM CHLORIDE 0.9% 100 ML IVPB SCH (08:17)
[2016-09-21] MEDS: levETIRAcetam IV 500 MG in SODIUM CHLORIDE 0.9% 100 ML IVPB SCH ×2 (08:17→18:44)
--- NOTE | 2016-09-21 10:45 | P.PN ---
Subjective Principal diagnosis: Patient is seen in follow-up for acute kidney injury. Unclear as to what his baseline renal function is. This admission he has been dialysis dependent. He did undergo hemodialysis yesterday with about 4 L of filtration. He currently has a permacath in place. He presented with severe rhabdomyolysis. He seems to have developed anoxic brain injury as well. He is awake this morning and does respond to verbal commands at times. He remains anuric. No major changes compared to yesterday. Vital signs are stable. General: The patient appeared well nourished and normally developed. HEENT: Head exam is unremarkable. Neck is without jugular venous distension. LUNGS: Lungs are clear to auscultation and percussion. Breath sounds decreased. HEART: Rate and Rhythm are regular. First and second heart sounds normal. No murmurs, rubs or gallops. ABDOMEN: Abdominal exam reveals normal bowel sounds. Non-tender and non- distended. No evidence of peritonitis. EXTREMITITES: No clubbing, cyanosis, or edema. Objective - Vital Signs Vital signs: Vital Signs Temp 99.5 F 09/21/16 05:00 Pulse 90 09/21/16 07:54 Resp 20 09/21/16 07:00 BP 144/76 09/21/16 07:00 Pulse Ox 96 09/21/16 07:00 Intake & Output 09/20/16 09/21/16 09/21/16 18:59 06:59 18:59 Intake Total 1060 1210 10 Output Total 4 1 Balance 1056 1209 10 Weight 94.2 kg 94.2 kg Intake: IV 210 510 10 0.9 @ KVO 110 110 10 levETIRAcetam IV 500 mg 100 400 In Sodium Chloride 0.9% 100 ml @ 400 mls/hr IVPB Q12HR [facility] Rx#:[id number] Intake, IV Titration 250 Amount Vancomycin 1,500 mg In 250 Sodium Chloride 0.9% 250 ml @ 125 mls/hr IVPB ONCE [facility] Rx#:[id number] Tube Feeding 600 700 Output: Urine 0 0 Stool 4 1 Other: Voiding Method Incontinent Incontinent # Bowel Movements 2 1 ABP, PAP, CO, CI - Last Documented Arterial Blood Pressure 152/75 - Labs CBC & Chem 7: 09/21/16 04:50 09/21/16 04:50 Labs: Abnormal Lab Results - Last 24 Hours (Table) 09/20/16 09/21/16 09/21/16 Range/Units 18:31 00:06 04:50 WBC 16.2 H (3.8-10.6) k/uL RBC 2.43 L (4.30-5.90) m/uL Hgb 7.5 L (13.0-17.5) gm/dL Hct 23.1 L (39.0-53.0) % Neutrophils # 14.9 H (1.3-7.7) k/uL Lymphocytes # 0.6 L (1.0-4.8) k/uL BUN (9-20) mg/dL Creatinine (0.66-1.25) mg/dL Glucose (74-99) mg/dL POC Glucose (mg/dL) 134 H 194 H (75-99) mg/dL Magnesium (1.6-2.3) mg/dL 09/21/16 09/21/16 Range/Units 04:50 04:56 WBC (3.8-10.6) k/uL RBC (4.30-5.90) m/uL Hgb (13.0-17.5) gm/dL Hct (39.0-53.0) % Neutrophils # (1.3-7.7) k/uL Lymphocytes # (1.0-4.8) k/uL BUN 63 H (9-20) mg/dL Creatinine 5.70 H* (0.66-1.25) mg/dL Glucose 178 H (74-99) mg/dL POC Glucose (mg/dL) 163 H (75-99) mg/dL Magnesium 2.7 H (1.6-2.3) mg/dL Assessment and Plan Plan: Assessment: #1. Oliguric acute kidney injury secondary to ischemic ATN secondary to rhabdomyolysis. Currently hemodialysis dependent. #2. Pulmonary edema. #3. Severe rhabdomyolysis. #4. Metabolic acidosis secondary to acute kidney injury. #5. Hyperphosphatemia secondary to oliguria/renal failure. #6. Hypocalcemia secondary to acute kidney injury as well as rhabdomyolysis. Improved. #7. Anemia. Iron deficiency present. #8. Anoxic brain injury. Plan: Hemodialysis today with goal 4 L ultrafiltration. Maintain calcium carbonate twice daily. Ferrlecit 125 mg IV daily for 3 days. Start Aranesp. Neurology following. Maintained on Keppra. He remains anuric with no evidence of renal recovery at this time.
[2016-09-21] MEDS: THIAMINE 100 MG TAB OG-TUBE SCH (11:48)
[2016-09-21] MEDS: MULTIVITAMINS, THERA LIQUID 237 ML BOTTLE OG-TUBE SCH (11:48)
[2016-09-21] MEDS: FOLIC ACID 1 MG TAB OG-TUBE SCH (11:48)
[2016-09-21] MEDS: DARBEPOETIN ALFA 40 MCG/0.4 ML SYRINGE SQ SCH (12:00)
[2016-09-21 12:07] LABS: Glucose,Whole Blood 207 mg/dL (75-99)
--- NOTE | 2016-09-21 13:42 | P.PN ---
Subjective Principal diagnosis: Hypoxia Patient seen and examined in the ICU with nursing staff at bedside. The patient is currently sitting up in the chair with family at bedside. The patient's is still very confused however he is alert and conversational. He is currently on room air. His breathing is markedly improved today. He has been hemodynamically stable. Systolic blood pressures remain in the 140s. Objective - Vital Signs Vital signs: Vital Signs Temp 99.2 F 09/21/16 08:00 Pulse 90 09/21/16 10:00 Resp 18 09/21/16 10:00 BP 136/73 09/21/16 10:00 Pulse Ox 94 L 09/21/16 10:00 Intake & Output 09/20/16 09/21/16 09/21/16 18:59 06:59 18:59 Intake Total 1060 1210 390 Output Total 4 1 75 Balance 1056 1209 315 Weight 94.2 kg 94.2 kg Intake: IV 210 510 240 0.9 @ KVO 110 110 40 Sodium Ferric Gluconat- 100 Sucrose 125 mg In Sodium Chloride 0.9% 100 ml @ 100 mls/hr IVPB DAILY [facility] Rx#:[id number] levETIRAcetam IV 500 mg 100 400 100 In Sodium Chloride 0.9% 100 ml @ 400 mls/hr IVPB Q12HR [facility] Rx#:[id number] Intake, IV Titration 250 100 Amount Cefepime 1 gm In Sodium 100 Chloride 0.9% 50 ml @ 100 mls/hr IVPB Q12HR [facility] Rx #:[id number] Vancomycin 1,500 mg In 250 Sodium Chloride 0.9% 250 ml @ 125 mls/hr IVPB ONCE [facility] Rx#:[id number] Tube Feeding 600 700 50 Output: Urine 0 0 75 Straight 25 Stool 4 1 Other: Voiding Method Incontinent Incontinent Incontinent # Voids 0 # Bowel Movements 2 1 ABP, PAP, CO, CI - Last Documented Arterial Blood Pressure 152/75 - Exam Gen.: Patient is sitting up in the chair, speaking full sentences, still somewhat confused Cardiovascular: Regular rate and rhythm, S1/S2, tachycardic Lungs: Improved aeration bilaterally, scattered crackles Abdomen: Soft nontender nondistended positive bowel sounds Extremities: Anasarca is improving - Labs CBC & Chem 7: 09/21/16 04:50 09/21/16 04:50 Labs: Abnormal Lab Results - Last 24 Hours (Table) 09/20/16 09/21/16 09/21/16 Range/Units 18:31 00:06 04:50 WBC 16.2 H (3.8-10.6) k/uL RBC 2.43 L (4.30-5.90) m/uL Hgb 7.5 L (13.0-17.5) gm/dL Hct 23.1 L (39.0-53.0) % Neutrophils # 14.9 H (1.3-7.7) k/uL Lymphocytes # 0.6 L (1.0-4.8) k/uL BUN (9-20) mg/dL Creatinine (0.66-1.25) mg/dL Glucose (74-99) mg/dL POC Glucose (mg/dL) 134 H 194 H (75-99) mg/dL Magnesium (1.6-2.3) mg/dL 09/21/16 09/21/16 09/21/16 Range/Units 04:50 04:56 12:04 WBC (3.8-10.6) k/uL RBC (4.30-5.90) m/uL Hgb (13.0-17.5) gm/dL Hct (39.0-53.0) % Neutrophils # (1.3-7.7) k/uL Lymphocytes # (1.0-4.8) k/uL BUN 63 H (9-20) mg/dL Creatinine 5.70 H* (0.66-1.25) mg/dL Glucose 178 H (74-99) mg/dL POC Glucose (mg/dL) 163 H 207 H (75-99) mg/dL Magnesium 2.7 H (1.6-2.3) mg/dL Assessment and Plan Plan: Acute hypoxic respiratory failure, improving Severe refractory Shock, resolved Delirium tremens improving Toxic metabolic encephalopathy, concern for anoxic brain injury versus prolonged DTs, improving Right lower lobe atelectasis, aspiration event, improving Severe metabolic acidosis, anion gap with mixed respiratory acidosis, improving Severe hyperkalemia, resolved Acute renal failure, requiring hemodialysis Rhabdomyolysis, resolved Lactic acidosis, resolved Possible seizure activity Hypomagnesemia, resolved Shock liver, improving History of opiate and alcohol abuse Active tobacco abuse O2 to maintain saturation greater than equal to 88% Out of bed as able Monitor labs Monitor urine output Continue low-dose Librium, will decrease dose of Librium Continue Seroquel Discontinue Ativan Ana Neurology recommendations Pain control Nephrology recommendations for HD and BP control Clonidine and labetalol scheduled. Hydralazine as needed. GI and DVT prophylaxis Multivitamin, thiamine, folate Discontinue NG tube Regular diet Limit fluid intake Solu-Medrol taper Continue vancomycin and cefepime Repeat blood and sputum cultures pending Continue Pulmicort Prognosis is very guarded. Continue to monitor mental status. Okay to transfer out of the ICU today
[2016-09-21] MEDS: CEFEPIME 1 GM in SODIUM CHLORIDE 0.9% 50 ML IVPB SCH ×2 (16:16→21:29)
[2016-09-21] MEDS: NICOTINE 21MG/24HR PATCH TRANSDERM SCH (16:34)
[2016-09-21 17:33] LABS: Glucose,Whole Blood 184 mg/dL (75-99)
[2016-09-21] MEDS ORDERED: VANCOMYCIN 1,500 MG in SODIUM CHLORIDE 0.9% 250 ML IVPB ONE (18:00)
--- NOTE | 2016-09-21 20:26 | P.PN ---
Subjective This patient is a 40-year-old right-handed white male who is being followed for episode of severe anoxic encephalopathy following respiratory failure. Patient was in the intensive care unit up until this morning. He was transferred to the medical floor today and still remains somewhat confused. He has a history of acute hypoxic respiratory failure with metabolic encephalopathy. He is undergone 2 EEG test that revealed fairly good background activity. He still remains confused but is more awake and alert and does follow some commands. He has episodes of intermittent confusion. He is conversational at times but still seems to be encephalopathic. The patient shows evidence of renal failure. This is secondary to his severe rhabdomyolysis. He is dialysis dependent at this time and is currently undergoing hemodialysis. He remains anuric with no evidence of renal recovery. Nephrology is following the patient closely. His laboratory testing today reveals a serum creatinine to be 5.70. As noted he was transferred out of the intensive care unit and is on the medical floor today. There is a sitter at bedside. He does seem to respond to some questions. He is moving all 4 extremities. He is being followed by multiple specialists. We will continue to monitor his progress closely during this admission. Patient will likely require subacute rehab possible ECF placement. We'll await further recommendations from social work. His overall prognosis at this time remains guarded. Objective - Vital Signs Vital signs: Vital Signs Temp 98.6 F 09/21/16 15:00 Pulse 88 09/21/16 19:28 Resp 20 09/21/16 15:00 BP 133/64 09/21/16 15:00 Pulse Ox 95 09/21/16 15:00 Intake & Output 09/21/16 09/21/16 09/22/16 06:59 18:59 06:59 Intake Total 1210 390 Output Total 1 75 Balance 1209 315 Weight 94.2 kg 94.2 kg Intake: IV 510 240 0.9 @ KVO 110 40 Sodium Ferric Gluconat- 100 Sucrose 125 mg In Sodium Chloride 0.9% 100 ml @ 100 mls/hr IVPB DAILY [facility] Rx#:[id number] levETIRAcetam IV 500 mg 400 100 In Sodium Chloride 0.9% 100 ml @ 400 mls/hr IVPB Q12HR [facility] Rx#:[id number] Intake, IV Titration 100 Amount Cefepime 1 gm In Sodium 100 Chloride 0.9% 50 ml @ 100 mls/hr IVPB Q12HR [facility] Rx #:[id number] Tube Feeding 700 50 Output: Urine 0 75 Straight 25 Stool 1 Other: Voiding Method Incontinent Incontinent # Voids 0 # Bowel Movements 1 ABP, PAP, CO, CI - Last Documented Arterial Blood Pressure 152/75 - Exam Physical examination: PHYSICAL EXAMINATION: Patient is resting comfortably in bed. He is following simple commands. VITAL SIGNS: Blood pressure is [133/64]. Heart rate is [82]. Respiration is [20] . Temperature is [98.7]. HEENT: Head is atraumatic, neck is supple, there were no carotid bruits. CHEST: Lungs are clear to auscultation and percussion. CARDIAC: S1, S2 normal rate and rhythm. There is no murmur. ABDOMEN: Soft and nontender. Bowel sounds are present. EXTREMITIES: There is no pedal edema. Peripheral pulses are present. Neurological examination: Patient resting comfortably in the ICU. He is undergoing hemodialysis at this time. He is resting comfortably and is opening his eyes. He is off of BiPAP at this time. He does seem to follow simple commands. He is more alert and oriented than yesterday. He does open his eyes and follows some simple commands. He is moving all 4 extremities. Deep tendon reflexes are brisk in both upper and lower extremities. Plantar responses flexor bilaterally. Coordination gait cannot be assessed in this patient at this time. - Labs CBC & Chem 7: 09/21/16 04:50 09/21/16 04:50 Labs: Abnormal Lab Results - Last 24 Hours (Table) 09/21/16 09/21/16 09/21/16 Range/Units 00:06 04:50 04:50 WBC 16.2 H (3.8-10.6) k/uL RBC 2.43 L (4.30-5.90) m/uL Hgb 7.5 L (13.0-17.5) gm/dL Hct 23.1 L (39.0-53.0) % Neutrophils # 14.9 H (1.3-7.7) k/uL Lymphocytes # 0.6 L (1.0-4.8) k/uL BUN 63 H (9-20) mg/dL Creatinine 5.70 H* (0.66-1.25) mg/dL Glucose 178 H (74-99) mg/dL POC Glucose (mg/dL) 194 H (75-99) mg/dL Magnesium 2.7 H (1.6-2.3) mg/dL 09/21/16 09/21/16 09/21/16 Range/Units 04:56 12:04 17:21 WBC (3.8-10.6) k/uL RBC (4.30-5.90) m/uL Hgb (13.0-17.5) gm/dL Hct (39.0-53.0) % Neutrophils # (1.3-7.7) k/uL Lymphocytes # (1.0-4.8) k/uL BUN (9-20) mg/dL Creatinine (0.66-1.25) mg/dL Glucose (74-99) mg/dL POC Glucose (mg/dL) 163 H 207 H 184 H (75-99) mg/dL Magnesium (1.6-2.3) mg/dL Microbiology - Last 24 Hours (Table) 09/20/16 12:06 Blood Culture - Preliminary Blood No Growth after 24 hours Assessment and Plan (1) Anoxic encephalopathy Status: Acute Code(s): G93.1 - ANOXIC BRAIN DAMAGE, NOT ELSEWHERE CLASSIFIED (2) Acute hyperkalemia Status: Acute Code(s): E87.5 - HYPERKALEMIA (3) Acute respiratory failure Status: Acute Code(s): J96.00 - ACUTE RESPIRATORY FAILURE, UNSP W HYPOXIA OR HYPERCAPNIA (4) Alcoholic hepatitis Status: Acute Code(s): K70.10 - ALCOHOLIC HEPATITIS WITHOUT ASCITES (5) Sepsis Status: Acute Code(s): A41.9 - SEPSIS, UNSPECIFIED ORGANISM Plan: This patient is a 40-year-old male who is being treated for acute hypoxic respiratory failure. He has evidence of a slowly improving metabolic encephalopathy. He continues on hemodialysis at this time. He remains anuric with no evidence of renal recovery. Nephrology is following the patient closely. His serum creatinine is come down and is noted to be 5.70 today. The patient's respiratory status has improved today. He remains afebrile. He continues to show evidence of confusion secondary to encephalopathy. We will continue to monitor his progress closely. We will continue to wean his Keppra level today to 500 mg daily. We will switch him to oral Keppra starting tomorrow morning. We'll continue to monitor for any evidence of myoclonus or seizure activity. His overall prognosis at this time remains very guarded. Multiple specialists are following the patient as well. He was transferred out of the intensive care unit to the medical floor today. We recommend close monitoring of his overall condition.
[2016-09-21] MEDS: QUEtiapine 25 MG TAB PO SCH (21:30)
[2016-09-22 00:02] LABS: Glucose,Whole Blood 222 mg/dL (75-99)
[2016-09-22] MEDS: INSULIN LISPRO (humaLOG) 300 UNIT/3 ML VIAL SQ SCH ×4 (00:03→21:36)
[2016-09-22] MEDS: HEPARIN SODIUM,PORCINE 5,000 UNIT/ML 1 ML VIAL SQ SCH ×3 (00:05→16:20)
[2016-09-22] MEDS: LORazepam 2 MG/ML SYRINGE IV PRN (03:32)
[2016-09-22 05:10] LABS: Glucose,Whole Blood 226 mg/dL (75-99)
--- NOTE | 2016-09-22 06:35 | P.CONS ---
History of Present Illness - Chief Complaint Gait disturbance - History of Present Illness 40-year-old right-handed white male admitted to [facility] September 09 nonresponsiveness and twitching. Seen by Dr. Angela Lara who notes and anoxic encephalopathy and history of alcohol. Seen by pulmonary for respiratory failure and ICU care. Seen by Dr. Cotter who notes oliguric kidney failure secondary to severe acute tubular necrosis. Was requiring hemodialysis. PT and OT prescribed in order sheet indicates both are still active orders. I have added speech therapy at this time. Chest x-ray demonstrates bilateral diffuse interstitial change with possible edema. Head CT negative. Previous functional history: Difficult elicited from patient secondary to confusion. 40-year-old right-handed white male who is single and may live in a second-floor apartment. Doesn't smoke and denies alcohol. Unemployed. Review of Systems Review of systems: Patient confused and ROS elicited from exam in chart. ENT: Denies sneezes or discharge. Eyes: Denies discharge or photophobia. Cardiac: Denies chest pain or palpitation. Pulmonary: Denies cough or shortness of breath. Gastrointestinal: Denies nausea, emesis, constipation, diarrhea. Genitourinary: Denies discharge or frequency. Musculoskeletal: Denies muscle or bone aches. Neurologic: Confusion. Endocrine: Denies shakes or sweats. Oncology: Denies cancers. Dermatologic: Denies rash, itching, pruritus. ALLERGY/immunology: Denies sneezes, rashes. Past Medical History Past Medical History: No Reported History Additional Past Medical History / Comment(s): alcoholic History of Any Multi-Drug Resistant Organisms: None Reported Additional Past Surgical History / Comment(s): Rhinoplasty (2003) Past Anesthesia/Blood Transfusion Reactions: No Reported Reaction Past Psychological History: Depression Smoking Status: Current every day smoker Past Alcohol Use History: Daily Additional Past Alcohol Use History / Comment(s): 15-20 24oz beers daily Past Drug Use History: Cocaine, Opiates, Prescription Drug Abuse - Past Family History Father Family Medical History: Diabetes Mellitus Mother Additional Family Medical History / Comment(s): ETOH use Medications and Allergies Home Medications Medication Instructions Recorded Confirmed Type Escitalopram Oxalate [Lexapro] 10 mg PO DAILY 09/09/16 09/09/16 History FLUoxetine HCL [PROzac] 20 mg PO DAILY 09/09/16 09/09/16 History Allergies Allergy/AdvReac Type Severity Reaction Status Date / Time seasonal Allergy Rash/Hives Uncoded 09/09/16 15:27 Physical Exam Vitals: Vital Signs Temp Pulse Pulse Resp BP BP Pulse Ox 09/21/16 23:00 98.0 F 83 16 117/56 92 L 09/21/16 19:28 88 09/21/16 19:15 88 09/21/16 15:00 98.6 F 82 20 133/64 95 09/21/16 10:00 90 18 136/73 94 L 09/21/16 09:00 88 22 152/77 92 L 09/21/16 08:00 99.2 F 110 H 18 144/75 94 L 09/21/16 07:54 90 09/21/16 07:40 89 09/21/16 07:00 92 20 144/76 96 Intake and Output 09/21/16 09/21/16 09/22/16 14:59 22:59 06:59 Intake Total 390 Output Total 75 Balance 315 Intake: IV 240 0.9 @ KVO 40 Sodium Ferric Gluconat- 100 Sucrose 125 mg In Sodium Chloride 0.9% 100 ml @ 100 mls/hr IVPB DAILY [facility] Rx#:[id number] levETIRAcetam IV 500 mg 100 In Sodium Chloride 0.9% 100 ml @ 400 mls/hr IVPB Q12HR [facility] Rx#:[id number] Intake, IV Titration 100 Amount Cefepime 1 gm In Sodium 100 Chloride 0.9% 50 ml @ 100 mls/hr IVPB Q12HR [facility] Rx #:[id number] Tube Feeding 50 Output: Urine 75 Straight 25 Other: Voiding Method Incontinent # Voids 0 1 Weight 94.2 kg 88.2 kg Patient Weight 09/22/16 06:59 Weight 88.2 kg Skin: Good color, texture, turgor. General: Medium build and comfortable appearance. Head: Normocephalic, atraumatic. Eyes: Symmetric. Pupils equal round. Ears: Symmetric. Hearing within normal limits. Mouth: Clear. Neck: Supple. Carotid without bruit. Cardiac: Regular rate and rhythm. Lungs: Clear anteriorly and posteriorly. Abdomen: Soft active nontender. Extremities: Normal tone. Neurological: Mental status: Confused, cooperative. Cranial nerves: Symmetric facial tone and trapezius. Motor: Active movement all 4 limbs. Sensation: Intact throughout. DTRs: Symmetric and equal throughout. Mobility: Sits and stands standby to contact-guard assistance of nursing staff. Results CBC & Chem 7: 09/21/16 04:50 09/21/16 04:50 Labs: Abnormal Lab Results - Last 24 Hours (Table) 09/21/16 09/21/16 09/21/16 Range/Units 12:04 17:21 23:56 POC Glucose (mg/dL) 207 H 184 H 222 H (75-99) mg/dL 09/22/16 Range/Units 05:04 POC Glucose (mg/dL) 226 H (75-99) mg/dL Microbiology - Last 24 Hours (Table) 09/20/16 12:06 Blood Culture - Preliminary Blood No Growth after 24 hours Chest x-ray: report reviewed (Chest x-rays followed for diffuse interstitial change, possible edema.) CT Scan - head: report reviewed (Negative) Assessment and Plan (1) Anoxic encephalopathy Status: Acute Plan: Impression: 1. Gait disturbance. 2. An anoxic encephalopathy. 3. Acute respiratory failure. 4. Acute kidney injury. 5. alcohol liver disease. Comments and plan: At this time PT and OT are apparently active and ongoing orders. We'll await therapist attempts at reevaluation. Have added speech therapy at this time for significant cognition problems. Definite safety concerns anticipated. We will follow closely with you.
[2016-09-22] MEDS: ALBUTEROL NEBULIZED 2.5 MG/3 ML INHALATION SCH ×4 (08:03→19:36)
[2016-09-22] MEDS: BUDESONIDE 0.5 MG/2 ML NEBU INHALATION SCH ×2 (08:03→19:36)
[2016-09-22] MEDS: CALCIUM CARBONATE LIQUID 500 MG/5 ML CUP PO SCH ×2 (08:30→16:21)
[2016-09-22] MEDS: PANTOPRAZOLE 40 MG/10 ML VIAL IV SCH (08:31)
[2016-09-22] MEDS: LABETALOL 100 MG TAB PO SCH ×2 (08:31→21:40)
[2016-09-22] MEDS: NICOTINE 21MG/24HR PATCH TRANSDERM SCH (08:31)
[2016-09-22] MEDS: cloNIDine HCL 0.1 MG TAB PO SCH ×3 (08:31→22:01)
[2016-09-22] MEDS: levETIRAcetam 500 MG TAB PO SCH (08:31)
[2016-09-22] MEDS: methylPREDNISolone SOD SUCCI 40 MG/ML 1 ML VIAL IV SCH ×2 (08:31→21:38)
[2016-09-22] MEDS: QUEtiapine 25 MG TAB PO SCH ×2 (08:32→21:40)
[2016-09-22] MEDS: SODIUM FERRIC GLUCONAT-SUCROSE 125 MG in SODIUM CHLORIDE 0.9% 100 ML IVPB SCH (08:32)
--- NOTE | 2016-09-22 08:36 | P.PN ---
Subjective Principal diagnosis: Patient is seen in follow-up for acute kidney injury. Unclear as to what his baseline renal function is. This admission he has been dialysis dependent. He has received hemodialysis on a daily basis for the past 4 days. He currently has a permacath in place. He presented with severe rhabdomyolysis. He seems to have developed anoxic brain injury as well. He is awake this morning and does respond to verbal commands at times. He remains anuric. No major changes compared to yesterday. Vital signs are stable. General: The patient appeared well nourished and normally developed. HEENT: Head exam is unremarkable. Neck is without jugular venous distension. LUNGS: Lungs are clear to auscultation and percussion. Breath sounds decreased. HEART: Rate and Rhythm are regular. First and second heart sounds normal. No murmurs, rubs or gallops. ABDOMEN: Abdominal exam reveals normal bowel sounds. Non-tender and non- distended. No evidence of peritonitis. EXTREMITITES: No clubbing, cyanosis, or edema. Objective - Vital Signs Vital signs: Vital Signs Temp 98.8 F 09/22/16 07:00 Pulse 88 09/22/16 08:14 Resp 18 09/22/16 07:00 BP 137/78 09/22/16 07:00 Pulse Ox 96 09/22/16 07:00 Intake & Output 09/21/16 09/22/16 09/22/16 18:59 06:59 18:59 Intake Total 390 Output Total 75 Balance 315 Weight 94.2 kg 88.2 kg Intake: IV 240 0.9 @ KVO 40 Sodium Ferric Gluconat- 100 Sucrose 125 mg In Sodium Chloride 0.9% 100 ml @ 100 mls/hr IVPB DAILY [facility] Rx#:[id number] levETIRAcetam IV 500 mg 100 In Sodium Chloride 0.9% 100 ml @ 400 mls/hr IVPB Q12HR [facility] Rx#:[id number] Intake, IV Titration 100 Amount Cefepime 1 gm In Sodium 100 Chloride 0.9% 50 ml @ 100 mls/hr IVPB Q12HR [facility] Rx #:[id number] Tube Feeding 50 Output: Urine 75 Straight 25 Other: Voiding Method Incontinent # Voids 0 1 # Bowel Movements 1 ABP, PAP, CO, CI - Last Documented Arterial Blood Pressure 152/75 - Labs CBC & Chem 7: 09/21/16 04:50 09/21/16 04:50 Labs: Abnormal Lab Results - Last 24 Hours (Table) 09/21/16 09/21/16 09/21/16 Range/Units 12:04 17:21 23:56 POC Glucose (mg/dL) 207 H 184 H 222 H (75-99) mg/dL 09/22/16 Range/Units 05:04 POC Glucose (mg/dL) 226 H (75-99) mg/dL Microbiology - Last 24 Hours (Table) 09/20/16 12:06 Blood Culture - Preliminary Blood No Growth after 24 hours Assessment and Plan Plan: Assessment: #1. Oliguric acute kidney injury secondary to ischemic ATN secondary to rhabdomyolysis. Currently hemodialysis dependent. #2. Pulmonary edema. #3. Severe rhabdomyolysis. #4. Metabolic acidosis secondary to acute kidney injury. #5. Hyperphosphatemia secondary to oliguria/renal failure. #6. Hypocalcemia secondary to acute kidney injury as well as rhabdomyolysis. Improved. #7. Anemia. Iron deficiency present. Status post 3 doses of IV iron completed September 21. #8. Anoxic brain injury. Plan: Hemodialysis today with goal 4 L ultrafiltration. Will try to hold off over the weekend. Maintain calcium carbonate twice daily. Maintain Aranesp. Neurology following. Maintained on Keppra. He remains anuric with no evidence of renal recovery at this time. Will get employment evaluator/case manager on board to help facilitate outpatient hemodialysis.
[2016-09-22 08:52] LABS: Basophils % (A) 0 %; CH 31.7; CHCM 33.1; Eosinophils % (A) 0 %; HCT 23.3 % (39.0-53.0); HDW 2.76; HGB 7.6 gm/dL (13.0-17.5); Luc # (Auto) 0.41; Luc % (Auto) 2; Lymphocytes # (A) 0.8 k/uL (1.0-4.8); Lymphocytes % (A) 4 %; MCH 31.5 pg (25.0-35.0); MCHC 32.8 g/dL (31.0-37.0); MCV 96.1 fL (80.0-100.0); Monocytes # (A) 0.9 k/uL (0-1.0); Monocytes % (A) 5 %; Neutrophils # (A) 16.6 k/uL (1.3-7.7); Neutrophils % (A) 88 %; RBC 2.42 m/uL (4.30-5.90); RDW 13.7 % (11.5-15.5); WBC 18.8 k/uL (3.8-10.6); WBC (Perox) 20.22
--- NOTE | 2016-09-22 09:04 | XR ---
EXAMINATION TYPE: XR chest 1V portable DATE OF EXAM: 09/22/2016 8:51 AM COMPARISON: 09/21/2016 HISTORY: SOB, Follow Up FINDINGS: NG tube has been removed. Central venous line unchanged in position. Persistent pulmonary venous congestion although the overall appearance has improved in the interval. Stable appearance of the cardio-mediastinal structures at this time. Pleural effusion unchanged. IMPRESSION: 1. Persistent pulmonary venous congestion although the overall appearance has improved in the interv al.
[2016-09-22 09:17] LABS: Calcium 8.9 mg/dL (8.4-10.2); Magnesium 2.3 mg/dL (1.6-2.3); Potassium 4.2 mmol/L (3.5-5.1)
[2016-09-22 11:56] LABS: Glucose,Whole Blood 233 mg/dL (75-99)
[2016-09-22] MEDS: FOLIC ACID 1 MG TAB OG-TUBE SCH (12:00)
[2016-09-22] MEDS: THIAMINE 100 MG TAB OG-TUBE SCH (12:00)
[2016-09-22] MEDS: MULTIVITAMINS, THERA LIQUID 237 ML BOTTLE OG-TUBE SCH (12:00)
--- NOTE | 2016-09-22 12:31 | P.PN ---
Subjective This patient is a 40-year-old right-handed white male who is being followed for episode of severe anoxic encephalopathy following respiratory failure. Patient was in the intensive care unit up until this morning. He was transferred to the medical floor today and still remains somewhat confused. He has a history of acute hypoxic respiratory failure with metabolic encephalopathy. He is undergone 2 EEG test that revealed fairly good background activity. He still remains confused but is more awake and alert and does follow some commands. He has episodes of intermittent confusion. He is conversational at times but still seems to be encephalopathic. The patient shows evidence of renal failure. This is secondary to his severe rhabdomyolysis. He is dialysis dependent at this time and is currently undergoing hemodialysis. He remains anuric with no evidence of renal recovery. Nephrology is following the patient closely. His laboratory testing today reveals a serum creatinine to be 5.74. As noted he was transferred out of the intensive care unit and is on the medical floor yesterday. There is a sitter at bedside. He does seem to respond to some questions. He is moving all 4 extremities. His girlfriend is at bedside this morning. She has noted some improvement in his overall mental status but he lapses into episodes of confusion. He continues to remain an uric and is showing no signs of renal recovery. He is to have hemodialysis today. He appears to be dialysis dependent at this time. He was evaluated for inpatient rehab placement by Dr. Claudio. We will await further recommendations and possible transfer to the inpatient rehab unit soon. He is being followed by multiple specialists. We will continue to monitor his progress closely during this admission. Patient will likely require subacute rehab possible ECF placement. We'll await further recommendations from social work. His overall prognosis at this time remains guarded. Objective - Vital Signs Vital signs: Vital Signs Temp 98.8 F 09/22/16 07:00 Pulse 88 09/22/16 11:56 Resp 18 09/22/16 07:00 BP 137/78 09/22/16 07:00 Pulse Ox 96 09/22/16 07:00 Intake & Output 09/21/16 09/22/16 09/22/16 18:59 06:59 18:59 Intake Total 390 Output Total 75 Balance 315 Weight 94.2 kg 88.2 kg Intake: IV 240 0.9 @ KVO 40 Sodium Ferric Gluconat- 100 Sucrose 125 mg In Sodium Chloride 0.9% 100 ml @ 100 mls/hr IVPB DAILY [facility] Rx#:[id number] levETIRAcetam IV 500 mg 100 In Sodium Chloride 0.9% 100 ml @ 400 mls/hr IVPB Q12HR [facility] Rx#:[id number] Intake, IV Titration 100 Amount Cefepime 1 gm In Sodium 100 Chloride 0.9% 50 ml @ 100 mls/hr IVPB Q12HR [facility] Rx #:[id number] Tube Feeding 50 Output: Urine 75 Straight 25 Other: Voiding Method Incontinent # Voids 0 1 # Bowel Movements 1 ABP, PAP, CO, CI - Last Documented Arterial Blood Pressure 152/75 - Exam Physical examination: PHYSICAL EXAMINATION: Patient is resting comfortably in bed. He is following simple commands. VITAL SIGNS: Blood pressure is [137/78]. Heart rate is [77]. Respiration is [18] . Temperature is [98.8]. HEENT: Head is atraumatic, neck is supple, there were no carotid bruits. CHEST: Lungs are clear to auscultation and percussion. CARDIAC: S1, S2 normal rate and rhythm. There is no murmur. ABDOMEN: Soft and nontender. Bowel sounds are present. EXTREMITIES: There is no pedal edema. Peripheral pulses are present. Neurological examination: Patient is resting comfortably in bed. He is sitting up at bedside with this at her next to him. Girlfriend is at bedside as well. He seems to be more awake and alert today and is following some simple commands. He has episodes of mild confusion. Neurological exam is otherwise nonfocal. - Labs CBC & Chem 7: 09/22/16 08:09 09/22/16 08:09 Labs: Abnormal Lab Results - Last 24 Hours (Table) 09/21/16 09/21/16 09/22/16 Range/Units 17:21 23:56 05:04 WBC (3.8-10.6) k/uL RBC (4.30-5.90) m/uL Hgb (13.0-17.5) gm/dL Hct (39.0-53.0) % Neutrophils # (1.3-7.7) k/uL Lymphocytes # (1.0-4.8) k/uL Chloride (98-107) mmol/L BUN (9-20) mg/dL Creatinine (0.66-1.25) mg/dL Glucose (74-99) mg/dL POC Glucose (mg/dL) 184 H 222 H 226 H (75-99) mg/dL 09/22/16 09/22/16 09/22/16 Range/Units 08:09 08:09 11:54 WBC 18.8 H (3.8-10.6) k/uL RBC 2.42 L (4.30-5.90) m/uL Hgb 7.6 L (13.0-17.5) gm/dL Hct 23.3 L (39.0-53.0) % Neutrophils # 16.6 H (1.3-7.7) k/uL Lymphocytes # 0.8 L (1.0-4.8) k/uL Chloride 96 L (98-107) mmol/L BUN 76 H (9-20) mg/dL Creatinine 5.74 H* (0.66-1.25) mg/dL Glucose 159 H (74-99) mg/dL POC Glucose (mg/dL) 233 H (75-99) mg/dL Microbiology - Last 24 Hours (Table) 09/20/16 12:06 Blood Culture - Preliminary Blood No Growth after 24 hours Assessment and Plan (1) Anoxic encephalopathy Status: Acute Code(s): G93.1 - ANOXIC BRAIN DAMAGE, NOT ELSEWHERE CLASSIFIED (2) Acute hyperkalemia Status: Acute Code(s): E87.5 - HYPERKALEMIA (3) Acute respiratory failure Status: Acute Code(s): J96.00 - ACUTE RESPIRATORY FAILURE, UNSP W HYPOXIA OR HYPERCAPNIA (4) Alcoholic hepatitis Status: Acute Code(s): K70.10 - ALCOHOLIC HEPATITIS WITHOUT ASCITES (5) Sepsis Status: Acute Code(s): A41.9 - SEPSIS, UNSPECIFIED ORGANISM Plan: This patient is a 40-year-old male who is being treated for acute hypoxic respiratory failure. He has evidence of a slowly improving metabolic encephalopathy. He continues on hemodialysis at this time. He remains anuric with no evidence of renal recovery. Nephrology is following the patient closely. His serum creatinine is come down and is noted to be 5.74 today. The patient's respiratory status has improved today. He remains afebrile. He continues to show evidence of confusion secondary to encephalopathy. We will continue to monitor his progress closely. We will continue to wean his Keppra level today to 500 mg daily. We will switch him to oral Keppra. We'll continue to monitor for any evidence of myoclonus or seizure activity. Patient is being evaluated for transfer to the inpatient rehab unit and was seen by Dr. Claudio. We'll await his further recommendations. He does seem to be more awake and alert today. We will plan to continue to wean him off of Keppra depending on how he does early next week. He is to undergo hemodialysis today he appears to have evidence of acute kidney injury with dialysis dependence. We will await further recommendations from nephrology. His overall prognosis at this time remains very guarded. Multiple specialists are following the patient as well. Case was discussed today with his girlfriend who was at bedside. She is aware of his guarded condition. We recommend close monitoring of his overall condition. His overall prognosis continues to remain very guarded.
--- NOTE | 2016-09-22 13:41 | PN ---
Mr. Artur Reddy who is a 40-year-old with acute rhabdomyolysis and acute renal failure. Patient clinically has been doing well, awake and alert. Sitter is present due to intermittent confusion. Patient is being followed by renal service as well. He is awake and alert. Otherwise, no obvious distress present. Hemodynamic status is stable. The blood pressure is 137/78, respiratory rate 18, pulse 88, temperature 98, sating 96%. HEENT: Unremarkable. Atraumatic, normocephalic. Pharynx is clear. NECK: Supple without lymphadenopathy, jugular venous distention or carotid bruit. LUNGS: Bilateral good air entry is present without significant rales, rhonchi, or rub. HEART: Regular rate and rhythm. S1 and S2 audible. ABDOMEN: Soft. EXTREMITIES: +1 peripheral pulses. NEUROLOGICAL EXAMINATION: Otherwise, awake and alert, moving all 4 extremities. LABS: Reviewed. White cell count 16,200. Hemoglobin is 7.5, hematocrit 23, platelets 230,000. BUN and creatinine 63 and 5.7. Glucose 207. IMPRESSION: 1. Acute hypoxic respiratory failure with pulmonary edema, clinically and radiographically improved significantly. 2. Acute rhabdomyolysis and acute renal failure related to acute tubular necrosis on hemodialysis at this point in time. 3. Electrolyte imbalance with hyperphosphatemia, hypocalcemia related to renal failure. 4. Anemia. Patient has been on iron therapy. 5. Anoxic injury to brain related to acute rhabdomyolysis, has improved. The patient is awake now. Patient is being evaluated for rehab placement. We will follow. Further recommendations pending.
[2016-09-22 18:22] LABS: Glucose,Whole Blood 155 mg/dL (75-99)
[2016-09-22] MEDS ORDERED: HEPARIN SODIUM,PORCINE 5,000 UNIT/ML 1 ML VIAL ONE (19:50)
[2016-09-22 20:54] LABS: Glucose,Whole Blood 220 mg/dL (75-99)
[2016-09-22] MEDS: CEFEPIME 1 GM in SODIUM CHLORIDE 0.9% 50 ML IVPB SCH (21:39)
[2016-09-23] MEDS: INSULIN LISPRO (humaLOG) 300 UNIT/3 ML VIAL SQ SCH ×5 (00:18→23:58)
[2016-09-23] MEDS: HEPARIN SODIUM,PORCINE 5,000 UNIT/ML 1 ML VIAL SQ SCH ×4 (00:18→23:56)
[2016-09-23] MEDS: LORazepam 2 MG/ML SYRINGE IV PRN ×2 (00:20→05:05)
[2016-09-23 00:26] LABS: Glucose,Whole Blood 298 mg/dL (75-99)
[2016-09-23 05:10] LABS: Glucose,Whole Blood 150 mg/dL (75-99)
[2016-09-23] MEDS ORDERED: VANCOMYCIN 1,500 MG in SODIUM CHLORIDE 0.9% 250 ML IVPB ONE (06:00)
[2016-09-23] MEDS: ALBUTEROL NEBULIZED 2.5 MG/3 ML INHALATION SCH ×4 (07:33→19:01)
[2016-09-23] MEDS: BUDESONIDE 0.5 MG/2 ML NEBU INHALATION SCH ×2 (07:33→19:01)
[2016-09-23] MEDS: NICOTINE 21MG/24HR PATCH TRANSDERM SCH (08:13)
[2016-09-23] MEDS: CALCIUM CARBONATE LIQUID 500 MG/5 ML CUP PO SCH ×2 (08:13→16:50)
[2016-09-23] MEDS: cloNIDine HCL 0.1 MG TAB PO SCH ×3 (08:14→20:53)
[2016-09-23] MEDS: PANTOPRAZOLE 40 MG TABLET PO SCH (08:14)
[2016-09-23] MEDS: LABETALOL 100 MG TAB PO SCH ×2 (08:14→20:53)
[2016-09-23] MEDS: levETIRAcetam 500 MG TAB PO SCH (08:15)
[2016-09-23] MEDS: QUEtiapine 25 MG TAB PO SCH ×2 (08:15→20:53)
[2016-09-23 08:52] LABS: Basophils % (A) 0 %; CH 31.9; CHCM 33.8; Eosinophils % (A) 0 %; HDW 2.71; HGB 7.5 gm/dL (13.0-17.5); Luc # (Auto) 0.36; Luc % (Auto) 2; Lymphocytes % (A) 7 %; MCH 31.1 pg (25.0-35.0); MCHC 32.8 g/dL (31.0-37.0); MCV 94.8 fL (80.0-100.0); Monocytes # (A) 0.8 k/uL (0-1.0); Monocytes % (A) 5 %; Neutrophils # (A) 12.6 k/uL (1.3-7.7); Neutrophils % (A) 85 %; RBC 2.42 m/uL (4.30-5.90); RDW 13.5 % (11.5-15.5); WBC 14.8 k/uL (3.8-10.6); WBC (Perox) 16.11
[2016-09-23 09:15] LABS: Calcium 8.7 mg/dL (8.4-10.2); Potassium 3.8 mmol/L (3.5-5.1)
--- NOTE | 2016-09-23 09:26 | P.PN ---
Subjective Principal diagnosis: remains confused. alert. Objective - Vital Signs Vital signs: Vital Signs Temp 98.0 F 09/23/16 06:43 Pulse 88 09/23/16 07:46 Resp 12 09/23/16 06:39 BP 154/76 09/23/16 06:39 Pulse Ox 97 09/23/16 06:39 Intake & Output 09/22/16 09/23/16 09/23/16 18:59 06:59 18:59 Intake Total 700 Output Total 0 Balance 700 0 Weight 87 kg Intake: IV 260 0.9 @ KVO 160 Sodium Ferric Gluconat- 100 Sucrose 125 mg In Sodium Chloride 0.9% 100 ml @ 100 mls/hr IVPB DAILY [facility] Rx#:[id number] Oral 440 Output: Urine 0 Straight 0 Stool 0 Other: # Voids 0 # Bowel Movements 1 ABP, PAP, CO, CI - Last Documented Arterial Blood Pressure 152/75 - Constitutional General appearance: Present: no acute distress - Respiratory Respiratory: bilateral: CTA - Cardiovascular Rhythm: regular Heart sounds: normal: S1, S2 - Peripheral edema leg Peripheral Edema: bilateral: None - Gastrointestinal General gastrointestinal: Present: soft - Labs CBC & Chem 7: 09/23/16 08:20 09/23/16 08:20 Labs: Abnormal Lab Results - Last 24 Hours (Table) 09/22/16 09/22/16 09/22/16 Range/Units 08:09 11:54 18:03 WBC (3.8-10.6) k/uL RBC (4.30-5.90) m/uL Hgb (13.0-17.5) gm/dL Hct (39.0-53.0) % Neutrophils # (1.3-7.7) k/uL Sodium (137-145) mmol/L Chloride 96 L (98-107) mmol/L Carbon Dioxide (22-30) mmol/L BUN 76 H (9-20) mg/dL Creatinine 5.74 H* (0.66-1.25) mg/dL Glucose 159 H (74-99) mg/dL POC Glucose (mg/dL) 233 H 155 H (75-99) mg/dL 09/22/16 09/23/16 09/23/16 Range/Units 20:53 00:14 05:07 WBC (3.8-10.6) k/uL RBC (4.30-5.90) m/uL Hgb (13.0-17.5) gm/dL Hct (39.0-53.0) % Neutrophils # (1.3-7.7) k/uL Sodium (137-145) mmol/L Chloride (98-107) mmol/L Carbon Dioxide (22-30) mmol/L BUN (9-20) mg/dL Creatinine (0.66-1.25) mg/dL Glucose (74-99) mg/dL POC Glucose (mg/dL) 220 H 298 H 150 H (75-99) mg/dL 09/23/16 09/23/16 Range/Units 08:20 08:20 WBC 14.8 H (3.8-10.6) k/uL RBC 2.42 L (4.30-5.90) m/uL Hgb 7.5 L (13.0-17.5) gm/dL Hct 23.0 L (39.0-53.0) % Neutrophils # 12.6 H (1.3-7.7) k/uL Sodium 132 L (137-145) mmol/L Chloride 93 L (98-107) mmol/L Carbon Dioxide 21 L (22-30) mmol/L BUN 65 H (9-20) mg/dL Creatinine 5.28 H* (0.66-1.25) mg/dL Glucose 149 H (74-99) mg/dL POC Glucose (mg/dL) (75-99) mg/dL Microbiology - Last 24 Hours (Table) 09/20/16 12:06 Blood Culture - Preliminary Blood No Growth after 48 hours Assessment and Plan Plan: #1. Oliguric acute kidney injury secondary to ischemic ATN secondary to rhabdomyolysis. Currently hemodialysis dependent. --Will hold dialysis this weekend. --Stat IV lasix and assess for renal recovery. #3. Severe rhabdomyolysis.- resolved. #4. Metabolic acidosis secondary to acute kidney injury. #5. Hyperphosphatemia secondary to oliguria/renal failure. #6. Hypocalcemia secondary to acute kidney injury as well as rhabdomyolysis. Improved. #7. Anemia. Iron deficiency present. Status post 3 doses of IV iron completed September 21. #8. Anoxic brain injury.
[2016-09-23] MEDS: FUROSEMIDE 10 MG/ML 10 ML VIAL IV SCH ×3 (10:21→23:58)
[2016-09-23] MEDS: methylPREDNISolone SOD SUCCI 40 MG/ML 1 ML VIAL IV SCH ×2 (10:22→20:53)
[2016-09-23 11:37] LABS: Glucose,Whole Blood 260 mg/dL (75-99)
[2016-09-23] MEDS: MULTIVITAMINS, THERA LIQUID 237 ML BOTTLE OG-TUBE SCH (11:52)
[2016-09-23] MEDS: FOLIC ACID 1 MG TAB OG-TUBE SCH ×2 (11:52→12:06)
[2016-09-23] MEDS: THIAMINE 100 MG TAB OG-TUBE SCH (12:05)
[2016-09-23 17:16] LABS: Glucose,Whole Blood 150 mg/dL (75-99)
[2016-09-23] MEDS: CEFEPIME 1 GM in SODIUM CHLORIDE 0.9% 50 ML IVPB SCH (23:55)
[2016-09-24 00:06] LABS: Glucose,Whole Blood 185 mg/dL (75-99)
[2016-09-24] MEDS: hydrALAZINE HCL 20 MG/ML 1 ML VIAL IVP PRN (00:11)
[2016-09-24] MEDS: LORazepam 2 MG/ML SYRINGE IV PRN ×4 (00:53→23:51)
[2016-09-24 05:52] LABS: Glucose,Whole Blood 170 mg/dL (75-99)
[2016-09-24] MEDS: INSULIN LISPRO (humaLOG) 300 UNIT/3 ML VIAL SQ SCH ×4 (05:54→23:48)
[2016-09-24] MEDS: NICOTINE 21MG/24HR PATCH TRANSDERM SCH (07:44)
[2016-09-24] MEDS: PANTOPRAZOLE 40 MG TABLET PO SCH (07:45)
[2016-09-24] MEDS: FUROSEMIDE 10 MG/ML 10 ML VIAL IV SCH (07:45)
[2016-09-24] MEDS: HEPARIN SODIUM,PORCINE 5,000 UNIT/ML 1 ML VIAL SQ SCH ×3 (07:45→23:34)
[2016-09-24] MEDS: CALCIUM CARBONATE LIQUID 500 MG/5 ML CUP PO SCH ×2 (07:45→16:48)
[2016-09-24] MEDS: LABETALOL 100 MG TAB PO SCH ×2 (07:46→22:05)
[2016-09-24] MEDS: cloNIDine HCL 0.1 MG TAB PO SCH ×3 (07:46→22:06)
[2016-09-24] MEDS: QUEtiapine 25 MG TAB PO SCH ×2 (07:46→22:06)
[2016-09-24] MEDS: ALBUTEROL NEBULIZED 2.5 MG/3 ML INHALATION SCH ×4 (07:46→20:55)
[2016-09-24] MEDS: BUDESONIDE 0.5 MG/2 ML NEBU INHALATION SCH ×2 (07:46→20:55)
[2016-09-24] MEDS: levETIRAcetam 500 MG TAB PO SCH (07:46)
[2016-09-24] MEDS: methylPREDNISolone SOD SUCCI 40 MG/ML 1 ML VIAL IV SCH ×2 (08:00→22:06)
--- NOTE | 2016-09-24 08:25 | P.PN ---
Subjective Principal diagnosis: Remains confused, but alert. HD dependent DEBI. Holding HD this weekend. Added lasix yesterday. Not much UOP however. Objective - Vital Signs Vital signs: Vital Signs Temp 97.1 F L 09/24/16 07:00 Pulse 88 09/24/16 08:05 Resp 16 09/24/16 07:00 BP 143/71 09/24/16 07:00 Pulse Ox 99 09/24/16 07:47 Intake & Output 09/23/16 09/24/16 09/24/16 18:59 06:59 18:59 Intake Total 1580 Output Total 100 30 Balance 1480 -30 Weight 86.5 kg Intake: IV 80 0.9 @ KVO 80 Intake, IV Titration 250 Amount Vancomycin 1,500 mg In 250 Sodium Chloride 0.9% 250 ml @ 125 mls/hr IVPB ONCE ONE Rx#:[id number] Oral 1250 Output: Urine 100 30 Other: # Voids 1 # Bowel Movements 1 ABP, PAP, CO, CI - Last Documented Arterial Blood Pressure 152/75 - Constitutional General appearance: Present: no acute distress - Respiratory Respiratory: bilateral: CTA - Cardiovascular Rhythm: regular Heart sounds: normal: S1, S2 - Peripheral edema leg Peripheral Edema: bilateral: Trace - Gastrointestinal General gastrointestinal: Present: soft - Labs CBC & Chem 7: 09/23/16 08:20 09/23/16 08:20 Labs: Abnormal Lab Results - Last 24 Hours (Table) 09/23/16 09/23/16 09/23/16 Range/Units 08:20 08:20 11:35 WBC 14.8 H (3.8-10.6) k/uL RBC 2.42 L (4.30-5.90) m/uL Hgb 7.5 L (13.0-17.5) gm/dL Hct 23.0 L (39.0-53.0) % Neutrophils # 12.6 H (1.3-7.7) k/uL Sodium 132 L (137-145) mmol/L Chloride 93 L (98-107) mmol/L Carbon Dioxide 21 L (22-30) mmol/L BUN 65 H (9-20) mg/dL Creatinine 5.28 H* (0.66-1.25) mg/dL Glucose 149 H (74-99) mg/dL POC Glucose (mg/dL) 260 H (75-99) mg/dL 09/23/16 09/23/16 09/24/16 Range/Units 17:15 23:52 05:50 WBC (3.8-10.6) k/uL RBC (4.30-5.90) m/uL Hgb (13.0-17.5) gm/dL Hct (39.0-53.0) % Neutrophils # (1.3-7.7) k/uL Sodium (137-145) mmol/L Chloride (98-107) mmol/L Carbon Dioxide (22-30) mmol/L BUN (9-20) mg/dL Creatinine (0.66-1.25) mg/dL Glucose (74-99) mg/dL POC Glucose (mg/dL) 150 H 185 H 170 H (75-99) mg/dL Microbiology - Last 24 Hours (Table) 09/20/16 12:06 Blood Culture - Preliminary Blood No Growth after 72 hours Assessment and Plan Plan: #1. Oliguric acute kidney injury secondary to ischemic ATN secondary to rhabdomyolysis. Currently hemodialysis dependent. --Holding HD this weekend. Added lasix 80 IVP tid yesterday. Will add metolazone. BMP pending. If Creat continues to rise along with poor uop, will need to resume HD Sunday or Sunday. --Stat IV lasix and assess for renal recovery. #3. Severe rhabdomyolysis.- resolved. #4. Metabolic acidosis secondary to acute kidney injury. #5. Hyperphosphatemia secondary to oliguria/renal failure. #6. Hypocalcemia secondary to acute kidney injury as well as rhabdomyolysis. Improved. #7. Anemia. Iron deficiency present. Status post 3 doses of IV iron completed September 21. #8. Anoxic brain injury.
[2016-09-24 08:39] LABS: Potassium 4.6 mmol/L (3.5-5.1)
[2016-09-24] MEDS ORDERED: METOLAZONE 5 MG TAB PO SCH (09:00)
[2016-09-24 12:14] LABS: Glucose,Whole Blood 219 mg/dL (75-99)
[2016-09-24] MEDS: FOLIC ACID 1 MG TAB OG-TUBE SCH (12:14)
[2016-09-24] MEDS: THIAMINE 100 MG TAB OG-TUBE SCH (12:14)
[2016-09-24] MEDS: MULTIVITAMINS, THERA LIQUID 237 ML BOTTLE OG-TUBE SCH (12:38)
[2016-09-24 17:50] LABS: Glucose,Whole Blood 175 mg/dL (75-99)
--- NOTE | 2016-09-24 20:24 | PN ---
DATE OF SERVICE: 09/23/2016 Mr. Artur Reddy is seen, evaluated and examined. He is a 40-year-old male with problems associated with alcohol withdrawal syndrome, DTs. Patient has significant degree of anxiety and apprehension requiring Ativan. Patient has a sitter as well. He is otherwise comfortable. Does have issues associated sometimes at nighttime. Last set of vitals include blood pressure is 144/79, respiratory rate 16, pulse 70, temperature 97, sating 99%. HEENT: Unremarkable. NECK: Supple. LUNGS: Good air entry bilaterally. HEART: Regular rate and rhythm. ABDOMEN: Soft. NEUROLOGICAL EXAMINATION: Otherwise, awake and alert. Labs reviewed. Medications reviewed as well. Sodium is 132, potassium 4.6. BUN and creatinine are 102 and 8.7. IMPRESSION: 1. Acute rhabdomyolysis and acute renal failure. 2. Hypoxic injury and pulmonary edema. 3. Electrolyte imbalance. 4. Delirium tremens and agitated behavior. PLAN: As above. Continue supportive care. Increase activity as tolerated. Hemodialysis plan as per renal service. Will follow.
--- NOTE | 2016-09-24 20:34 | PN ---
DATE OF SERVICE: 09/24/2016 Mr. Reddy was seen, evaluated, examined. His renal function progressively getting worse. He remains anxious and confused. The patient's hemodialysis was held this weekend. Lasix was given; however, with that renal functions progressively get worse. The patient intermittently continued to manifest agitated behavior. Last set of vitals include blood pressure is 143/71, respiratory rate 16, pulse 71, temperature 99, saturation 95% to 96%. HEENT: Unremarkable. NECK: Supple. LUNGS: Good air entry bilaterally. HEART: Regular rate and rhythm. ABDOMEN: Soft. NEUROLOGICAL EXAMINATION: Moving all 4 extremities, some generalized weakness present, otherwise fairly unremarkable. Culture results and reports are reviewed. Medications reviewed. IMPRESSION: 1. Agitated behavior, altered mental status. Overall, the patient remains confused likely related to some component of anoxic injury. 2. Acute rhabdomyolysis and acute renal failure. 3. History of alcohol consumption. PLAN AND RECOMMENDATIONS: As above. Continue supportive care. Follow clinical course closely. Further recommendations pending. Plan of care as per clinical response of the patient. Would plan for a chest x-ray hemodialysis tomorrow.
[2016-09-24] MEDS: CEFEPIME 1 GM in SODIUM CHLORIDE 0.9% 50 ML IVPB SCH (22:05)
[2016-09-24 23:39] LABS: Glucose,Whole Blood 131 mg/dL (75-99)
[2016-09-25] MEDS: LORazepam 2 MG/ML SYRINGE IV PRN ×6 (04:56→22:20)
[2016-09-25] MEDS: INSULIN LISPRO (humaLOG) 300 UNIT/3 ML VIAL SQ SCH ×3 (06:34→18:19)
[2016-09-25 06:44] LABS: Glucose,Whole Blood 162 mg/dL (75-99)
[2016-09-25] MEDS: BUDESONIDE 0.5 MG/2 ML NEBU INHALATION SCH ×2 (07:26→19:27)
[2016-09-25] MEDS: ALBUTEROL NEBULIZED 2.5 MG/3 ML INHALATION SCH ×4 (07:26→19:27)
--- NOTE | 2016-09-25 09:06 | XR ---
EXAMINATION TYPE: XR chest 1V portable DATE OF EXAM: 09/25/2016 8:59 AM COMPARISON: 09/22/2016 INDICATION: Congestive heart failure TECHNIQUE: Single frontal view of the chest is obtained. FINDINGS: The heart size is normal. The pulmonary vasculature is normal. The lungs are clear. Catheter is present on the right with the tips in the proximal right atrium. IMPRESSION: 1. No acute pulmonary process.
[2016-09-25 09:55] LABS: Basophils % (A) 0 %; CH 31.8; CHCM 33.2; Eosinophils % (A) 0 %; HCT 24.5 % (39.0-53.0); HGB 7.9 gm/dL (13.0-17.5); Luc # (Auto) 0.39; Luc % (Auto) 2; Lymphocytes # (A) 1.3 k/uL (1.0-4.8); Lymphocytes % (A) 8 %; MCHC 32.3 g/dL (31.0-37.0); MCV 96.2 fL (80.0-100.0); Monocytes % (A) 6 %; Neutrophils # (A) 13.8 k/uL (1.3-7.7); Neutrophils % (A) 84 %; RBC 2.54 m/uL (4.30-5.90); RDW 14.1 % (11.5-15.5); WBC 16.5 k/uL (3.8-10.6); WBC (Perox) 17.03
[2016-09-25 10:09] LABS: Calcium 9.1 mg/dL (8.4-10.2); Magnesium 2.3 mg/dL (1.6-2.3); Potassium 5.1 mmol/L (3.5-5.1); Total Bilirubin 1.1 mg/dL (0.2-1.3); Total Protein 6.5 g/dL (6.3-8.2)
[2016-09-25] MEDS: CALCIUM CARBONATE LIQUID 500 MG/5 ML CUP PO SCH ×2 (10:24→18:19)
[2016-09-25] MEDS: PANTOPRAZOLE 40 MG TABLET PO SCH (10:25)
[2016-09-25] MEDS: HEPARIN SODIUM,PORCINE 5,000 UNIT/ML 1 ML VIAL SQ SCH ×2 (10:25→16:00)
[2016-09-25] MEDS: LABETALOL 100 MG TAB PO SCH ×2 (10:26→22:17)
[2016-09-25] MEDS: cloNIDine HCL 0.1 MG TAB PO SCH ×3 (10:26→22:17)
[2016-09-25] MEDS: levETIRAcetam 500 MG TAB PO SCH (10:26)
[2016-09-25] MEDS: NICOTINE 21MG/24HR PATCH TRANSDERM SCH (10:27)
[2016-09-25] MEDS: methylPREDNISolone SOD SUCCI 40 MG/ML 1 ML VIAL IV SCH ×2 (10:27→21:38)
[2016-09-25] MEDS: QUEtiapine 25 MG TAB PO SCH ×2 (10:27→22:18)
--- NOTE | 2016-09-25 10:43 | P.PN ---
Subjective Principal diagnosis: Patient is seen in follow-up for acute kidney injury. Unclear as to what his baseline renal function is. This admission he has been dialysis dependent. He currently has a permacath in place. He presented with severe rhabdomyolysis. He seems to have developed anoxic brain injury as well. He is awake this morning and does respond to verbal commands at times. He remains anuric. Vital signs are stable. General: The patient appeared well nourished and normally developed. HEENT: Head exam is unremarkable. Neck is without jugular venous distension. LUNGS: Lungs are clear to auscultation and percussion. Breath sounds decreased. HEART: Rate and Rhythm are regular. First and second heart sounds normal. No murmurs, rubs or gallops. ABDOMEN: Abdominal exam reveals normal bowel sounds. Non-tender and non- distended. No evidence of peritonitis. EXTREMITITES: No clubbing, cyanosis, or edema. Objective - Vital Signs Vital signs: Vital Signs Temp 96.6 F L 09/25/16 07:00 Pulse 80 09/25/16 07:35 Resp 19 09/25/16 07:00 BP 156/82 09/25/16 07:00 Pulse Ox 100 09/25/16 07:26 Intake & Output 09/24/16 09/25/16 09/25/16 18:59 06:59 18:59 Intake Total 330 220 Output Total 0 Balance 330 220 Weight 81 kg Intake: IV 80 120 0.9 @ KVO 80 120 Oral 250 100 Output: Urine 0 Straight 0 Other: # Voids 0 ABP, PAP, CO, CI - Last Documented Arterial Blood Pressure 152/75 - Labs CBC & Chem 7: 09/25/16 09:03 09/25/16 09:03 Labs: Abnormal Lab Results - Last 24 Hours (Table) 09/24/16 09/24/16 09/24/16 Range/Units 12:03 17:49 23:38 WBC (3.8-10.6) k/uL RBC (4.30-5.90) m/uL Hgb (13.0-17.5) gm/dL Hct (39.0-53.0) % Neutrophils # (1.3-7.7) k/uL Sodium (137-145) mmol/L Chloride (98-107) mmol/L Carbon Dioxide (22-30) mmol/L BUN (9-20) mg/dL Creatinine (0.66-1.25) mg/dL Glucose (74-99) mg/dL POC Glucose (mg/dL) 219 H 175 H 131 H (75-99) mg/dL ALT (21-72) U/L Alkaline Phosphatase (38-126) U/L 09/25/16 09/25/16 09/25/16 Range/Units 06:31 09:03 09:03 WBC 16.5 H (3.8-10.6) k/uL RBC 2.54 L (4.30-5.90) m/uL Hgb 7.9 L (13.0-17.5) gm/dL Hct 24.5 L (39.0-53.0) % Neutrophils # 13.8 H (1.3-7.7) k/uL Sodium 134 L (137-145) mmol/L Chloride 94 L (98-107) mmol/L Carbon Dioxide 16 L (22-30) mmol/L BUN 126 H* (9-20) mg/dL Creatinine 10.85 H* (0.66-1.25) mg/dL Glucose 119 H (74-99) mg/dL POC Glucose (mg/dL) 162 H (75-99) mg/dL ALT 111 H (21-72) U/L Alkaline Phosphatase 164 H (38-126) U/L Microbiology - Last 24 Hours (Table) 09/20/16 12:06 Blood Culture - Preliminary Blood No Growth after 96 hours Assessment and Plan Plan: Assessment: #1. Oliguric acute kidney injury secondary to ischemic ATN secondary to rhabdomyolysis. No improvement in urine output with IV diuretics. Currently hemodialysis dependent. #2. Pulmonary edema. Resolved. #3. Severe rhabdomyolysis. #4. Metabolic acidosis secondary to acute kidney injury. #5. Hyperphosphatemia secondary to oliguria/renal failure. #6. Hypocalcemia secondary to acute kidney injury as well as rhabdomyolysis. Resolved. #7. Anemia. Iron deficiency present. Status post 3 doses of IV iron completed September 21. #8. Anoxic brain injury. Plan: Hemodialysis today with goal 3-4 L ultrafiltration. W Maintain calcium carbonate twice daily. Maintain Aranesp. Neurology following. Maintained on Keppra. He remains anuric with no evidence of renal recovery at this time. Will get egg caser on board to help facilitate outpatient hemodialysis.
[2016-09-25 12:27] LABS: Glucose,Whole Blood 132 mg/dL (75-99)
[2016-09-25] MEDS: THIAMINE 100 MG TAB OG-TUBE SCH (13:41)
[2016-09-25] MEDS: MULTIVITAMINS, THERA 1 EACH TAB PO SCH (13:41)
[2016-09-25] MEDS: FOLIC ACID 1 MG TAB OG-TUBE SCH (13:41)
--- NOTE | 2016-09-25 17:53 | P.PN ---
Subjective This patient is a 40-year-old right-handed white male who is being followed for episode of severe anoxic encephalopathy following respiratory failure. Patient was in the intensive care unit recently and transferred out last week. He was transferred to the medical floor and still remains somewhat confused. He has a history of acute hypoxic respiratory failure with metabolic encephalopathy. He is undergone 2 EEG test that revealed fairly good background activity. He still remains confused but is more awake and alert and does follow some commands. He has episodes of intermittent confusion. He is conversational at times but still seems to be encephalopathic. His speech qualitity also seems to vary. The patient shows evidence of renal failure. This is secondary to his severe rhabdomyolysis. He is dialysis dependent at this time and is currently undergoing hemodialysis. He remains anuric with no evidence of renal recovery. Nephrology is following the patient closely. His laboratory testing today reveals a serum creatinine to be 10.85. There is a sitter at bedside. He does seem to respond to some questions. He is moving all 4 extremities. She has noted some improvement in his overall mental status but he lapses into episodes of confusion. He continues to remain anuric and is showing no signs of renal recovery. He is to have hemodialysis today. He appears to be dialysis dependent at this time. He was evaluated for inpatient rehab placement by Dr. Claudio. We will await further recommendations and possible transfer to the inpatient subacute rehab unit soon. He is being followed by multiple specialists. We will continue to monitor his progress closely during this admission. Patient will likely require subacute rehab possible ECF placement. We will await further recommendations from social work regarding discharge planning. We will plan to discontinue his Keppra today as he has had no further episodes of myoclonus and/or seizures. His overall prognosis at this time remains very guarded. We will continue to follow his neurological status closely as needed. Objective - Vital Signs Vital signs: Vital Signs Temp 96.5 F L 09/25/16 15:00 Pulse 73 09/25/16 15:00 Resp 19 09/25/16 15:00 BP 132/72 09/25/16 15:00 Pulse Ox 98 09/25/16 15:00 Intake & Output 09/24/16 09/25/16 09/25/16 18:59 06:59 18:59 Intake Total 330 220 130 Output Total 0 Balance 330 220 130 Weight 81 kg 81 kg Intake: IV 80 120 80 0.9 @ KVO 80 120 80 Intake, IV Titration 50 Amount Cefepime 1 gm In Sodium 50 Chloride 0.9% 50 ml @ 100 mls/hr IVPB [facility] Rx# :[id number] Oral 250 100 Output: Urine 0 Straight 0 Other: # Voids 0 ABP, PAP, CO, CI - Last Documented Arterial Blood Pressure 152/75 - Exam Physical examination: PHYSICAL EXAMINATION: Patient is resting comfortably in bed. He is following simple commands. VITAL SIGNS: Blood pressure is [132/72]. Heart rate is [73]. Respiration is [19] . Temperature is [97.0]. HEENT: Head is atraumatic, neck is supple, there were no carotid bruits. CHEST: Lungs are clear to auscultation and percussion. CARDIAC: S1, S2 normal rate and rhythm. There is no murmur. ABDOMEN: Soft and nontender. Bowel sounds are present. EXTREMITIES: There is no pedal edema. Peripheral pulses are present. Neurological examination: Patient is resting comfortably in bed. He is sitting up at bedside with little assistance. There is a sitter at bedside. He seems to be more awake and alert today and is following some simple commands. He has episodes of mild confusion. Neurological exam is otherwise nonfocal. - Labs CBC & Chem 7: 09/25/16 09:03 09/25/16 09:03 Labs: Abnormal Lab Results - Last 24 Hours (Table) 09/24/16 09/24/16 09/25/16 Range/Units 17:49 23:38 06:31 WBC (3.8-10.6) k/uL RBC (4.30-5.90) m/uL Hgb (13.0-17.5) gm/dL Hct (39.0-53.0) % Neutrophils # (1.3-7.7) k/uL Sodium (137-145) mmol/L Chloride (98-107) mmol/L Carbon Dioxide (22-30) mmol/L BUN (9-20) mg/dL Creatinine (0.66-1.25) mg/dL Glucose (74-99) mg/dL POC Glucose (mg/dL) 175 H 131 H 162 H (75-99) mg/dL ALT (21-72) U/L Alkaline Phosphatase (38-126) U/L 09/25/16 09/25/16 09/25/16 Range/Units 09:03 09:03 12:26 WBC 16.5 H (3.8-10.6) k/uL RBC 2.54 L (4.30-5.90) m/uL Hgb 7.9 L (13.0-17.5) gm/dL Hct 24.5 L (39.0-53.0) % Neutrophils # 13.8 H (1.3-7.7) k/uL Sodium 134 L (137-145) mmol/L Chloride 94 L (98-107) mmol/L Carbon Dioxide 16 L (22-30) mmol/L BUN 126 H* (9-20) mg/dL Creatinine 10.85 H* (0.66-1.25) mg/dL Glucose 119 H (74-99) mg/dL POC Glucose (mg/dL) 132 H (75-99) mg/dL ALT 111 H (21-72) U/L Alkaline Phosphatase 164 H (38-126) U/L Microbiology - Last 24 Hours (Table) 09/20/16 12:06 Blood Culture - Preliminary Blood No Growth after 120 hours Assessment and Plan (1) Anoxic encephalopathy Status: Acute Code(s): G93.1 - ANOXIC BRAIN DAMAGE, NOT ELSEWHERE CLASSIFIED (2) Acute hyperkalemia Status: Acute Code(s): E87.5 - HYPERKALEMIA (3) Acute respiratory failure Status: Acute Code(s): J96.00 - ACUTE RESPIRATORY FAILURE, UNSP W HYPOXIA OR HYPERCAPNIA (4) Alcoholic hepatitis Status: Acute Code(s): K70.10 - ALCOHOLIC HEPATITIS WITHOUT ASCITES (5) Sepsis Status: Acute Code(s): A41.9 - SEPSIS, UNSPECIFIED ORGANISM Plan: This patient is a 40-year-old male who is being treated for acute hypoxic respiratory failure. He has evidence of a slowly improving metabolic encephalopathy. He continues on hemodialysis at this time. He remains anuric with no evidence of renal recovery. Nephrology is following the patient closely. His serum creatinine is elevated today at 10.85. He has just completed hemodialysis for today. He remains anuric and is dialysis dependent at this time.. The patient's respiratory status has improved today. He remains afebrile. He continues to show evidence of confusion secondary to encephalopathy. We will continue to monitor his progress closely. We will continue to monitor for any evidence of myoclonus or seizure activity. Patient is being evaluated for transfer to the inpatient rehab unit and was seen by Dr. Claudio. We will await his further recommendations. He does seem to be more awake and alert today. We will plan to discontinue his Keppra today and monitor him closely for any recurrence of myoclonus. He is to undergo hemodialysis today he appears to have evidence of acute kidney injury with dialysis dependence. We will await further recommendations from nephrology. His overall prognosis at this time remains very guarded. Multiple specialists are following the patient as well. Apparently he is awaiting possible transfer to an extended care facility or subacute rehab center that can perform hemodialysis for him. Social work is attempting to arrange for discharge plan for him. We recommend close monitoring of his overall condition. His overall prognosis continues to remain very guarded. We will await further recommendations from multiple specialists. We will await further guidance from social work in regards to his options for discharge plan.
[2016-09-25 18:09] LABS: Glucose,Whole Blood 146 mg/dL (75-99)
[2016-09-25] MEDS: CEFEPIME 1 GM in SODIUM CHLORIDE 0.9% 50 ML IVPB SCH (21:37)
[2016-09-26 00:29] LABS: Glucose,Whole Blood 147 mg/dL (75-99)
[2016-09-26] MEDS: HEPARIN SODIUM,PORCINE 5,000 UNIT/ML 1 ML VIAL SQ SCH ×3 (00:57→17:39)
[2016-09-26] MEDS: INSULIN LISPRO (humaLOG) 300 UNIT/3 ML VIAL SQ SCH ×5 (00:57→22:15)
[2016-09-26] MEDS: LORazepam 2 MG/ML SYRINGE IV PRN ×3 (00:57→08:17)
[2016-09-26 06:30] LABS: Glucose,Whole Blood 136 mg/dL (75-99)
[2016-09-26 07:53] LABS: Glucose,Whole Blood 116 mg/dL (75-99)
[2016-09-26] MEDS: BUDESONIDE 0.5 MG/2 ML NEBU INHALATION SCH ×2 (08:02→19:46)
[2016-09-26] MEDS: ALBUTEROL NEBULIZED 2.5 MG/3 ML INHALATION SCH ×4 (08:02→19:46)
[2016-09-26] MEDS: NICOTINE 21MG/24HR PATCH TRANSDERM SCH (08:19)
[2016-09-26] MEDS: PANTOPRAZOLE 40 MG TABLET PO SCH (08:19)
[2016-09-26] MEDS: LABETALOL 100 MG TAB PO SCH ×2 (08:19→21:55)
[2016-09-26] MEDS: CALCIUM CARBONATE LIQUID 500 MG/5 ML CUP PO SCH (08:19)
[2016-09-26] MEDS: methylPREDNISolone SOD SUCCI 40 MG/ML 1 ML VIAL IV SCH ×2 (08:20→21:55)
[2016-09-26] MEDS: cloNIDine HCL 0.1 MG TAB PO SCH ×3 (08:21→21:55)
[2016-09-26] MEDS: QUEtiapine 25 MG TAB PO SCH ×2 (09:30→21:55)
[2016-09-26 09:55] LABS: Potassium 4.8 mmol/L (3.5-5.1); Total Protein 6.6 g/dL (6.3-8.2)
[2016-09-26 10:36] LABS: Basophils % (A) 0 %; CH 31.9; CHCM 33.3; Eosinophils # (A) 0.1 k/uL (0-0.7); Eosinophils % (A) 0 %; HCT 25.2 % (39.0-53.0); HDW 2.64; HGB 8.2 gm/dL (13.0-17.5); Luc # (Auto) 0.52; Luc % (Auto) 3; Lymphocytes # (A) 1.4 k/uL (1.0-4.8); Lymphocytes % (A) 8 %; MCH 31.5 pg (25.0-35.0); MCHC 32.7 g/dL (31.0-37.0); MCV 96.3 fL (80.0-100.0); Mean Platelet Volume 7.5; Monocytes # (A) 1.4 k/uL (0-1.0); Monocytes % (A) 8 %; Neutrophils # (A) 14.2 k/uL (1.3-7.7); Neutrophils % (A) 81 %; RBC 2.62 m/uL (4.30-5.90); RDW 14.5 % (11.5-15.5); WBC 17.6 k/uL (3.8-10.6); WBC (Perox) 18.65
--- NOTE | 2016-09-26 10:46 | P.PN ---
Subjective 40-year-old being seen on rounds with a sitter at bedside this morning continues to have episodes of confusion. The discharge planning is in progress. manager media relations is pursuing placement. According to the nursing staff patient has moments where he is more awake and attempts to follow simple commands be conversational and then becomes confused and disoriented and at times agitated sitter currently at bedside Hospital course This is a 40-year-old gentleman who has been hospitalized on September 09 for an episode of severe anoxic encephalopathy resulting in acute hypoxic respiratory failure. Requiring vent support support. With severe rhabdomyolysis Patient was admitted to the intensive care unit treated for acute hypoxic respiratory failure with metabolic encephalopathy. Patient has been followed by neurology pulmonology patient was able to be stabilized and transferred out to the medical floor. Patient continues to have episodes of intermittent confusion. Additionally nephrology has been following for the acute renal failure and is on hemodialysis Objective - Vital Signs Vital signs: Vital Signs Temp 96.2 F L 09/26/16 07:00 Pulse 78 09/26/16 07:00 Resp 20 09/26/16 07:00 BP 144/80 09/26/16 07:00 Pulse Ox 99 09/26/16 07:00 Intake & Output 09/25/16 09/26/16 09/26/16 18:59 06:59 18:59 Intake Total 130 200 Balance 130 200 Weight 81 kg 73 kg Intake: IV 80 0.9 @ KVO 80 Intake, IV Titration 50 Amount Cefepime 1 gm In Sodium 50 Chloride 0.9% 50 ml @ 100 mls/hr IVPB Q24H [facility] Rx# :[id number] Oral 200 Other: # Voids 2 # Bowel Movements 1 ABP, PAP, CO, CI - Last Documented Arterial Blood Pressure 152/75 - Exam Physical exam 40-year-old who does open his eyes to verbal and tactile stimuli. Will follow simple commands. Sitter at bedside. Currently patient is cooperative. Nursing reports patient did have an episode of confusion disorientation and agitation last evening Lungs posterior diminished at the bases upper airways rhonchi breath sounds Heart S1-S2 audible and regular no murmur noted Abdomen soft nontender not distended Extremities nonpitting edema - Labs CBC & Chem 7: 09/25/16 09:03 09/26/16 09:03 Labs: Abnormal Lab Results - Last 24 Hours (Table) 09/25/16 09/25/16 09/26/16 Range/Units 12:26 18:04 00:13 Sodium (137-145) mmol/L Chloride (98-107) mmol/L Carbon Dioxide (22-30) mmol/L BUN (9-20) mg/dL Creatinine (0.66-1.25) mg/dL Glucose (74-99) mg/dL POC Glucose (mg/dL) 132 H 146 H 147 H (75-99) mg/dL Phosphorus (2.5-4.5) mg/dL ALT (21-72) U/L Alkaline Phosphatase (38-126) U/L 09/26/16 09/26/16 09/26/16 Range/Units 06:27 07:44 09:03 Sodium 133 L (137-145) mmol/L Chloride 95 L (98-107) mmol/L Carbon Dioxide 19 L (22-30) mmol/L BUN 73 H (9-20) mg/dL Creatinine 8.10 H* (0.66-1.25) mg/dL Glucose 106 H (74-99) mg/dL POC Glucose (mg/dL) 136 H 116 H (75-99) mg/dL Phosphorus 9.0 H* (2.5-4.5) mg/dL ALT 95 H (21-72) U/L Alkaline Phosphatase 160 H (38-126) U/L Microbiology - Last 24 Hours (Table) 09/20/16 12:06 Blood Culture - Preliminary Blood No Growth after 120 hours Assessment and Plan Plan: Impression Present on admission acute hypoxic respiratory failure on vent support multifactorial Present on admission severely hyperkalemic potassium 8.7 Present on admission urine drug screen positive for opiates History of Polysubstance drug abuse Suspect anoxic brain injury Present on admission acute kidney injury anion gap metabolic acidosis due to acute kidney injury with lactic acidosis Active tobacco abuse Possible seizure activity Right lower lobe atelectasis with an aspiration event Severe refractory shock resolved Present on admission Rhabdomyolysis Lactic acidosis History of a depressive disorder nonspecified on Lexapro at home Present on admission Hypomagnesemia with elevated potassium hyperkalemic Present on admission acute alcohol intoxication History of chronic alcoholism daily consumption Present on Admission elevated lipase amylase AST ALT suspect acute pancreatitis due to chronic alcoholism Present on admission sepsis likely due to aspiration right lower lobe pneumonia Alcoholic hepatitis history of alcohol abuse dependency Persistent acute hyperkalemia Present on admission and anoxic encephalopathy Anoxic brain injury Oliguric acute kidney injury secondary to ischemic ATN secondary to rhabdomyolysis. No improvement in urine output with IV diuretics. Currently hemodialysis dependent. Pulmonary edema. Resolved. Anemia suspect iron deficiency Hyperphosphatemia secondary to oliguria/renal failure. Hypocalcemia secondary to acute kidney injury as well as rhabdomyolysis. Resolved.. Anemia. Iron deficiency present. Status post 3 doses of IV iron completed September 21. Plan manager media relations pursuing placement will need outpatient hemodialysis Continue recommendations by nephrology defer to Monitor electrolytes DVT and GI prophylaxis IV fluid at 75 an hour Continue recommendations from all consulting physicians defer to Scheduled hemodialysis today on the per nephrology Continue on Ke per neurology's recommendations The above dictated assessment and findings were discussed with dr brito Impression and the plan of care have been dictated as directed. Pavithra Hameed nurse practitioner acting as a scribe for dr brito
--- NOTE | 2016-09-26 11:11 | PN ---
DATE OF SERVICE: 09/25/2016 SUBJECTIVE: This is a 40-year-old white male, status post anoxic brain injury, rhabdomyolysis, severe liver failure, severe renal failure, he is getting dialysis today, his vancomycin is high, Pharmacy is re-dosing his dosage. A chest x-ray is ordered also today which shows negative. Patient is sitting up in bed, giving confusing answers to things, but mostly he is giving some off statements where he is not thinking clearly, he appears to be breathing okay. Lungs are clear. GI is soft. Neurologic moves all extremities. PSYCH: His answers are not always on task and states a little bit of confusion. He has agitated behavior, altered mental status, status post possibly secondary anoxic brain injury, rhabdomyolysis, renal failure and needs dialysis today. Alcohol consumption. He is on broad-spectrum antibiotics for history of pneumonia. Please see further orders. Prognosis extremely guarded on this patient. He will need long-term dialysis, possibly shelter placement.
--- NOTE | 2016-09-26 11:32 | P.PN ---
Subjective Principal diagnosis: Patient is seen in follow-up for acute kidney injury. Unclear as to what his baseline renal function is. This admission he has been dialysis dependent. He currently has a permacath in place. He presented with severe rhabdomyolysis. He seems to have developed anoxic brain injury as well. He is currently sleeping and is difficult to awaken. He remains anuric. Vital signs are stable. General: The patient appeared well nourished and normally developed. HEENT: Head exam is unremarkable. Neck is without jugular venous distension. LUNGS: Lungs are clear to auscultation and percussion. Breath sounds decreased. HEART: Rate and Rhythm are regular. First and second heart sounds normal. No murmurs, rubs or gallops. ABDOMEN: Abdominal exam reveals normal bowel sounds. Non-tender and non- distended. No evidence of peritonitis. EXTREMITITES: No clubbing, cyanosis, or edema. Objective - Vital Signs Vital signs: Vital Signs Temp 96.2 F L 09/26/16 07:00 Pulse 78 09/26/16 07:00 Resp 20 09/26/16 07:00 BP 144/80 09/26/16 07:00 Pulse Ox 99 09/26/16 07:00 Intake & Output 09/25/16 09/26/16 09/26/16 18:59 06:59 18:59 Intake Total 130 200 Balance 130 200 Weight 81 kg 73 kg Intake: IV 80 0.9 @ KVO 80 Intake, IV Titration 50 Amount Cefepime 1 gm In Sodium 50 Chloride 0.9% 50 ml @ 100 mls/hr IVPB Q24H [facility] Rx# :[id number] Oral 200 Other: # Voids 2 # Bowel Movements 1 ABP, PAP, CO, CI - Last Documented Arterial Blood Pressure 152/75 - Labs CBC & Chem 7: 09/26/16 09:03 09/26/16 09:03 Labs: Abnormal Lab Results - Last 24 Hours (Table) 09/25/16 09/25/16 09/26/16 Range/Units 12:26 18:04 00:13 WBC (3.8-10.6) k/uL RBC (4.30-5.90) m/uL Hgb (13.0-17.5) gm/dL Hct (39.0-53.0) % Plt Count (150-450) k/uL Neutrophils # (1.3-7.7) k/uL Monocytes # (0-1.0) k/uL Sodium (137-145) mmol/L Chloride (98-107) mmol/L Carbon Dioxide (22-30) mmol/L BUN (9-20) mg/dL Creatinine (0.66-1.25) mg/dL Glucose (74-99) mg/dL POC Glucose (mg/dL) 132 H 146 H 147 H (75-99) mg/dL Phosphorus (2.5-4.5) mg/dL ALT (21-72) U/L Alkaline Phosphatase (38-126) U/L 09/26/16 09/26/16 09/26/16 Range/Units 06:27 07:44 09:03 WBC (3.8-10.6) k/uL RBC (4.30-5.90) m/uL Hgb (13.0-17.5) gm/dL Hct (39.0-53.0) % Plt Count (150-450) k/uL Neutrophils # (1.3-7.7) k/uL Monocytes # (0-1.0) k/uL Sodium 133 L (137-145) mmol/L Chloride 95 L (98-107) mmol/L Carbon Dioxide 19 L (22-30) mmol/L BUN 73 H (9-20) mg/dL Creatinine 8.10 H* (0.66-1.25) mg/dL Glucose 106 H (74-99) mg/dL POC Glucose (mg/dL) 136 H 116 H (75-99) mg/dL Phosphorus 9.0 H* (2.5-4.5) mg/dL ALT 95 H (21-72) U/L Alkaline Phosphatase 160 H (38-126) U/L 09/26/16 Range/Units 09:03 WBC 17.6 H (3.8-10.6) k/uL RBC 2.62 L (4.30-5.90) m/uL Hgb 8.2 L (13.0-17.5) gm/dL Hct 25.2 L (39.0-53.0) % Plt Count 468 H (150-450) k/uL Neutrophils # 14.2 H (1.3-7.7) k/uL Monocytes # 1.4 H (0-1.0) k/uL Sodium (137-145) mmol/L Chloride (98-107) mmol/L Carbon Dioxide (22-30) mmol/L BUN (9-20) mg/dL Creatinine (0.66-1.25) mg/dL Glucose (74-99) mg/dL POC Glucose (mg/dL) (75-99) mg/dL Phosphorus (2.5-4.5) mg/dL ALT (21-72) U/L Alkaline Phosphatase (38-126) U/L Microbiology - Last 24 Hours (Table) 09/20/16 12:06 Blood Culture - Preliminary Blood No Growth after 120 hours Assessment and Plan Plan: Assessment: #1. Oliguric acute kidney injury secondary to ischemic ATN secondary to rhabdomyolysis. No improvement in urine output with IV diuretics. Currently hemodialysis dependent. #2. Pulmonary edema. Resolved. #3. Severe rhabdomyolysis. #4. Metabolic acidosis secondary to acute kidney injury. #5. Hyperphosphatemia secondary to oliguria/renal failure. #6. Hypocalcemia secondary to acute kidney injury as well as rhabdomyolysis. Resolved. #7. Anemia. Iron deficiency present. Status post 3 doses of IV iron completed September 21. #8. Anoxic brain injury. Plan: Hemodialysis tomorrow with goal 3-4 L ultrafiltration. Start PhosLo with meals. Maintain Aranesp. Continue oral sodium bicarbonate supplementation. Neurology following. Maintained on Keppra. He remains anuric with no evidence of renal recovery at this time. loss control manager on board to help facilitate outpatient hemodialysis.
[2016-09-26 12:16] LABS: Glucose,Whole Blood 130 mg/dL (75-99)
[2016-09-26] MEDS: MULTIVITAMINS, THERA 1 EACH TAB PO SCH (13:07)
[2016-09-26] MEDS: FOLIC ACID 1 MG TAB OG-TUBE SCH (13:07)
[2016-09-26] MEDS: CALCIUM ACETATE 667 MG CAP PO SCH ×2 (13:07→17:39)
[2016-09-26] MEDS: THIAMINE 100 MG TAB OG-TUBE SCH (13:08)
[2016-09-26 17:12] LABS: Glucose,Whole Blood 150 mg/dL (75-99)
--- NOTE | 2016-09-26 18:38 | CONS ---
DATE OF CONSULTATION: September 26, 2016 REASON FOR CONSULTATION: Psychosis. History was gathered from medical record, talking with nursing staff and clinical interview with the patient. 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 The patient had not appeared to his work at his usual scheduled time and his supervisor propellant charge loading came to his home and found him unresponsive. EMS was called and the patient arrived to the hospital on September 09 and was intubated at that time. Lab result was done at the time of his arrival and his serum alcohol was 83 and his urine drug screen came back positive for opiates. The patient did suffer from aspiration pneumonia, acute kidney injury and status post anoxic brain injury. Today the patient endorses feeling depressed, down, tearful at times, as he has 3 children and he is not able to see them as much as he wishes. He denied any current suicidal or homicidal ideations. He endorses some visual hallucinations last night, but he denied any current psychotic features. He talked about struggling with multiple legal problems due to his drinking that are affecting him physically and mentally. Regarding past psychiatric history, according to the patient, he was admitted to inpatient psychiatric unit at least 6 times for depression and for alcohol. The first admission was at age 19. At that time, he was drinking heavy and he did get into legal problem, as he did get his first drunk driving ticket and he felt suicidal. His last admission was last year. The patient was court ordered to [facility] for 4 weeks. Patient denied any past history of suicidal attempt. He stated that several years ago, he went to [facility] for outpatient substance abuse because it was court ordered. The patient does not recall any psychotropic medication except Prozac and escitalopram prescribed to him by his primary care physician, but he did admit that he has been noncompliant with medication. He states that he was previously diagnosed with depression and alcohol abuse. SUBSTANCE ABUSE HISTORY: Alcohol is extensive history, started at age 17 and as I mentioned before, he has been in at least 6 substance abuse programs. Also he had 3 drunk driving tickets and he lost his [place] driver's license since 2000. Nicotine: He has been smoking 1/2 to 1 pack a day. He denied any other drug use, despite that his urine drug screen was positive for opiates. Family history of psychiatric illness. His father and paternal grandfather struggled with drinking problem. There is no suicide in the family. SOCIAL HISTORY: The patient is the oldest of 4. He stated that his family is very supportive. He never had been , but he was in stable relationship and he has 3 children: 1 boy and 2 girls, ages 16, 9 and 6. His 3 children are living with their mother. The patient has very limited visitation rights with them. 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 MENTAL STATUS EXAMINATION: The patient is male who is disheveled, very drowsy. Speech is very low in tone and voice. Eye contact is appropriate. Patient was alert and oriented to person and place only. He did recall his date, but he could not recall the month. He did recall it is 2016. He denied any suicidal or homicidal ideation. He did admit that he did have visual hallucination last night, but currently he denied any psychotic features. Patient had a depressed facial expression. He had psychomotor retardation and his speech was decreased in rate. His insight and judgment are limited. DIAGNOSES: 1. Delirium reaction, resolved. It is multifactorial due to sepsis, metabolic and medication. 2. Depressive disorder, not otherwise specified. 3. Alcohol use disorder. 4. Cognitive disorder, not otherwise specified. PLAN: 1. Do recommend to correct the underlying reason; in addition, try to avoid opium pain medication. 2. I will continue to follow up as long as he is in the hospital. 3. I will re-evaluate his mental status examination in a couple of days, as the patient just did receive Ativan prior to my clinical interview with him. I do recommend low dose of Seroquel 25 to 50 mg at . Thank you for this consultation.
[2016-09-26 20:55] LABS: Glucose,Whole Blood 145 mg/dL (75-99)
[2016-09-26] MEDS: CEFEPIME 1 GM in SODIUM CHLORIDE 0.9% 50 ML IVPB SCH (21:54)
[2016-09-26] MEDS ORDERED: VANCOMYCIN 1,500 MG in SODIUM CHLORIDE 0.9% 250 ML IVPB ONE (22:00)
[2016-09-27] MEDS: HEPARIN SODIUM,PORCINE 5,000 UNIT/ML 1 ML VIAL SQ SCH ×4 (01:17→17:35)
[2016-09-27] MEDS: LORazepam 2 MG/ML SYRINGE IV PRN (01:46)
[2016-09-27 07:28] LABS: Glucose,Whole Blood 181 mg/dL (75-99)
[2016-09-27] MEDS: INSULIN LISPRO (humaLOG) 300 UNIT/3 ML VIAL SQ SCH ×4 (08:05→21:52)
[2016-09-27] MEDS: cloNIDine HCL 0.1 MG TAB PO SCH ×3 (08:06→21:51)
[2016-09-27] MEDS: LABETALOL 100 MG TAB PO SCH ×2 (08:06→21:52)
[2016-09-27] MEDS: QUEtiapine 25 MG TAB PO SCH ×2 (08:07→21:52)
[2016-09-27] MEDS: NICOTINE 21MG/24HR PATCH TRANSDERM SCH ×2 (08:07→09:00)
[2016-09-27] MEDS: CALCIUM ACETATE 667 MG CAP PO SCH ×3 (08:07→17:33)
[2016-09-27] MEDS: PANTOPRAZOLE 40 MG TABLET PO SCH (08:07)
[2016-09-27] MEDS: methylPREDNISolone SOD SUCCI 40 MG/ML 1 ML VIAL IV SCH ×2 (08:08→21:52)
[2016-09-27 09:08] LABS: Calcium 9.2 mg/dL (8.4-10.2); Potassium 5.7 mmol/L (3.5-5.1); Total Protein 6.9 g/dL (6.3-8.2)
[2016-09-27] MEDS: ALBUTEROL NEBULIZED 2.5 MG/3 ML INHALATION SCH ×4 (09:16→19:55)
[2016-09-27] MEDS: BUDESONIDE 0.5 MG/2 ML NEBU INHALATION SCH ×2 (09:16→19:55)
[2016-09-27 10:13] LABS: Basophils % (A) 0 %; CH 31.8; CHCM 32.6; Eosinophils % (A) 0 %; HDW 2.45; Luc % (Auto) 2; Lymphocytes # (A) 1.1 k/uL (1.0-4.8); Lymphocytes % (A) 6 %; MCH 31.3 pg (25.0-35.0); MCV 97.9 fL (80.0-100.0); Mean Platelet Volume 7.8; Monocytes # (A) 1.1 k/uL (0-1.0); Monocytes % (A) 6 %; Neutrophils # (A) 16.4 k/uL (1.3-7.7); Neutrophils % (A) 87 %; RBC 2.86 m/uL (4.30-5.90); RDW 14.1 % (11.5-15.5); WBC 18.9 k/uL (3.8-10.6); WBC (Perox) 19.09
--- NOTE | 2016-09-27 10:24 | P.PN ---
Subjective 40-year-old woman being seen on rounds this morning currently sitting up in a chair with a sitter at the bedside. There's been no behaviors disturbance noted during the night patient has been pleasant cooperative oriented to self and place no recall of event patients being followed by nephrology currently is dialysis dependent. Currently has a permacath in place. hotel manager is pursuing the discharge plan Objective - Vital Signs Vital signs: Vital Signs Temp 97.6 F 09/27/16 07:00 Pulse 64 09/27/16 07:00 Resp 20 09/27/16 07:00 BP 141/83 09/27/16 07:00 Pulse Ox 99 09/27/16 07:00 Intake & Output 09/26/16 09/27/16 09/27/16 18:59 06:59 18:59 Intake Total 120 240 Output Total 0 30 Balance 0 90 240 Weight 74.5 kg Intake: Oral 120 240 Output: Urine 30 Straight 30 Stool 0 Other: Voiding Method Incontinent Incontinent # Voids 0 2 # Bowel Movements 1 ABP, PAP, CO, CI - Last Documented Arterial Blood Pressure 152/75 - Exam Physical exam 40-year-old sitting up in a chair pleasant cooperative no agitated behavior noted oriented to person and place Lungs posterior diminished at the bases upper airways rhonchi breath sounds Heart S1-S2 audible and regular no murmur noted Abdomen soft nontender not distended no reports of nausea vomiting Extremities nonpitting edema - Labs CBC & Chem 7: 09/27/16 08:10 09/27/16 08:10 Labs: Abnormal Lab Results - Last 24 Hours (Table) 09/26/16 09/26/16 09/26/16 Range/Units 09:03 09:03 12:01 WBC 17.6 H (3.8-10.6) k/uL RBC 2.62 L (4.30-5.90) m/uL Hgb 8.2 L (13.0-17.5) gm/dL Hct 25.2 L (39.0-53.0) % Plt Count 468 H (150-450) k/uL Neutrophils # 14.2 H (1.3-7.7) k/uL Monocytes # 1.4 H (0-1.0) k/uL Sodium 133 L (137-145) mmol/L Potassium (3.5-5.1) mmol/L Chloride 95 L (98-107) mmol/L Carbon Dioxide 19 L (22-30) mmol/L BUN 73 H (9-20) mg/dL Creatinine 8.10 H* (0.66-1.25) mg/dL Glucose 106 H (74-99) mg/dL POC Glucose (mg/dL) 130 H (75-99) mg/dL Phosphorus 9.0 H* (2.5-4.5) mg/dL ALT 95 H (21-72) U/L Alkaline Phosphatase 160 H (38-126) U/L 09/26/16 09/26/16 09/27/16 Range/Units 17:05 20:52 07:04 WBC (3.8-10.6) k/uL RBC (4.30-5.90) m/uL Hgb (13.0-17.5) gm/dL Hct (39.0-53.0) % Plt Count (150-450) k/uL Neutrophils # (1.3-7.7) k/uL Monocytes # (0-1.0) k/uL Sodium (137-145) mmol/L Potassium (3.5-5.1) mmol/L Chloride (98-107) mmol/L Carbon Dioxide (22-30) mmol/L BUN (9-20) mg/dL Creatinine (0.66-1.25) mg/dL Glucose (74-99) mg/dL POC Glucose (mg/dL) 150 H 145 H 181 H (75-99) mg/dL Phosphorus (2.5-4.5) mg/dL ALT (21-72) U/L Alkaline Phosphatase (38-126) U/L 09/27/16 09/27/16 Range/Units 08:10 08:10 WBC 18.9 H (3.8-10.6) k/uL RBC 2.86 L (4.30-5.90) m/uL Hgb 9.0 L (13.0-17.5) gm/dL Hct 28.0 L (39.0-53.0) % Plt Count 482 H (150-450) k/uL Neutrophils # 16.4 H (1.3-7.7) k/uL Monocytes # 1.1 H (0-1.0) k/uL Sodium 133 L (137-145) mmol/L Potassium 5.7 H (3.5-5.1) mmol/L Chloride 94 L (98-107) mmol/L Carbon Dioxide 16 L (22-30) mmol/L BUN 95 H* (9-20) mg/dL Creatinine 10.42 H* (0.66-1.25) mg/dL Glucose 165 H (74-99) mg/dL POC Glucose (mg/dL) (75-99) mg/dL Phosphorus (2.5-4.5) mg/dL ALT 81 H (21-72) U/L Alkaline Phosphatase 160 H (38-126) U/L Microbiology - Last 24 Hours (Table) 09/20/16 12:06 Blood Culture - Final Blood No Growth after 144 hours Assessment and Plan Plan: Impression Present on admission acute hypoxic respiratory failure on vent support multifactorial Present on admission severely hyperkalemic potassium 8.7 Present on admission urine drug screen positive for opiates History of Polysubstance drug abuse Suspect anoxic brain injury Present on admission acute kidney injury anion gap metabolic acidosis due to acute kidney injury with lactic acidosis Active tobacco abuse Possible seizure activity Right lower lobe atelectasis with an aspiration event Severe refractory shock resolved Present on admission Rhabdomyolysis Lactic acidosis History of a depressive disorder nonspecified on Lexapro at home Present on admission Hypomagnesemia with elevated potassium hyperkalemic Present on admission acute alcohol intoxication History of chronic alcoholism daily consumption Present on Admission elevated lipase amylase AST ALT suspect acute pancreatitis due to chronic alcoholism Present on admission sepsis likely due to aspiration right lower lobe pneumonia Alcoholic hepatitis history of alcohol abuse dependency Persistent acute hyperkalemia Present on admission and anoxic encephalopathy Anoxic brain injury Oliguric acute kidney injury secondary to ischemic ATN secondary to rhabdomyolysis. No improvement in urine output with IV diuretics. Currently hemodialysis dependent. Pulmonary edema. Resolved. Anemia suspect iron deficiency Hyperphosphatemia secondary to oliguria/renal failure. Hypocalcemia secondary to acute kidney injury as well as rhabdomyolysis. Resolved.. Anemia. Iron deficiency present. Status post 3 doses of IV iron completed September 21. Leukocytosis persist suspect steroid-induced on Solu-Medrol 40 IV every 12 Plan hotel manager pursuing placement will need outpatient hemodialysis Continue recommendations by nephrology defer to Monitor electrolytes DVT and GI prophylaxis IV fluid at 75 an hour Continue recommendations from all consulting physicians defer to Scheduled hemodialysis per nephrology Continue on Keppra per neurology's recommendations The above dictated assessment and findings were discussed with dr brito Impression and the plan of care have been dictated as directed. Pavithra Hameed nurse practitioner acting as a scribe for dr brito
--- NOTE | 2016-09-27 10:36 | P.PN ---
Subjective Principal diagnosis: Patient is seen in follow-up for acute kidney injury. Unclear as to what his baseline renal function is. This admission he has been dialysis dependent. He currently has a permacath in place. He presented with severe rhabdomyolysis. He seems to have developed anoxic brain injury as well. He is currently He remains anuric. Currently sitting up in chair and is answering questions quite appropriately.. Vital signs are stable. General: The patient appeared well nourished and normally developed. HEENT: Head exam is unremarkable. Neck is without jugular venous distension. LUNGS: Lungs are clear to auscultation and percussion. Breath sounds decreased. HEART: Rate and Rhythm are regular. First and second heart sounds normal. No murmurs, rubs or gallops. ABDOMEN: Abdominal exam reveals normal bowel sounds. Non-tender and non- distended. No evidence of peritonitis. EXTREMITITES: No clubbing, cyanosis, or edema. Objective - Vital Signs Vital signs: Vital Signs Temp 97.6 F 09/27/16 07:00 Pulse 64 09/27/16 07:00 Resp 20 09/27/16 07:00 BP 141/83 09/27/16 07:00 Pulse Ox 99 09/27/16 07:00 Intake & Output 09/26/16 09/27/16 09/27/16 18:59 06:59 18:59 Intake Total 120 240 Output Total 0 30 Balance 0 90 240 Weight 74.5 kg Intake: Oral 120 240 Output: Urine 30 Straight 30 Stool 0 Other: Voiding Method Incontinent Incontinent # Voids 0 2 # Bowel Movements 1 ABP, PAP, CO, CI - Last Documented Arterial Blood Pressure 152/75 - Labs CBC & Chem 7: 09/27/16 08:10 09/27/16 08:10 Labs: Abnormal Lab Results - Last 24 Hours (Table) 09/26/16 09/26/16 09/26/16 Range/Units 09:03 12:01 17:05 WBC 17.6 H (3.8-10.6) k/uL RBC 2.62 L (4.30-5.90) m/uL Hgb 8.2 L (13.0-17.5) gm/dL Hct 25.2 L (39.0-53.0) % Plt Count 468 H (150-450) k/uL Neutrophils # 14.2 H (1.3-7.7) k/uL Monocytes # 1.4 H (0-1.0) k/uL Sodium (137-145) mmol/L Potassium (3.5-5.1) mmol/L Chloride (98-107) mmol/L Carbon Dioxide (22-30) mmol/L BUN (9-20) mg/dL Creatinine (0.66-1.25) mg/dL Glucose (74-99) mg/dL POC Glucose (mg/dL) 130 H 150 H (75-99) mg/dL ALT (21-72) U/L Alkaline Phosphatase (38-126) U/L 09/26/16 09/27/16 09/27/16 Range/Units 20:52 07:04 08:10 WBC 18.9 H (3.8-10.6) k/uL RBC 2.86 L (4.30-5.90) m/uL Hgb 9.0 L (13.0-17.5) gm/dL Hct 28.0 L (39.0-53.0) % Plt Count 482 H (150-450) k/uL Neutrophils # 16.4 H (1.3-7.7) k/uL Monocytes # 1.1 H (0-1.0) k/uL Sodium (137-145) mmol/L Potassium (3.5-5.1) mmol/L Chloride (98-107) mmol/L Carbon Dioxide (22-30) mmol/L BUN (9-20) mg/dL Creatinine (0.66-1.25) mg/dL Glucose (74-99) mg/dL POC Glucose (mg/dL) 145 H 181 H (75-99) mg/dL ALT (21-72) U/L Alkaline Phosphatase (38-126) U/L 09/27/16 Range/Units 08:10 WBC (3.8-10.6) k/uL RBC (4.30-5.90) m/uL Hgb (13.0-17.5) gm/dL Hct (39.0-53.0) % Plt Count (150-450) k/uL Neutrophils # (1.3-7.7) k/uL Monocytes # (0-1.0) k/uL Sodium 133 L (137-145) mmol/L Potassium 5.7 H (3.5-5.1) mmol/L Chloride 94 L (98-107) mmol/L Carbon Dioxide 16 L (22-30) mmol/L BUN 95 H* (9-20) mg/dL Creatinine 10.42 H* (0.66-1.25) mg/dL Glucose 165 H (74-99) mg/dL POC Glucose (mg/dL) (75-99) mg/dL ALT 81 H (21-72) U/L Alkaline Phosphatase 160 H (38-126) U/L Microbiology - Last 24 Hours (Table) 09/20/16 12:06 Blood Culture - Final Blood No Growth after 144 hours Assessment and Plan Plan: Assessment: #1. Oliguric acute kidney injury secondary to ischemic ATN secondary to rhabdomyolysis. No improvement in urine output with IV diuretics. Currently hemodialysis dependent. #2. Pulmonary edema. Resolved. #3. Severe rhabdomyolysis. #4. Metabolic acidosis secondary to acute kidney injury. #5. Hyperphosphatemia secondary to oliguria/renal failure. #6. Hypocalcemia secondary to acute kidney injury as well as rhabdomyolysis. Resolved. #7. Anemia. Iron deficiency present. Status post 3 doses of IV iron completed September 21. #8. Anoxic brain injury. Plan: Hemodialysis today with goal 3-4 L ultrafiltration. Start PhosLo with meals. Maintain Aranesp. Continue oral sodium bicarbonate supplementation. Neurology following. Maintained on Keppra. He remains anuric with no evidence of renal recovery at this time. database development project manager on board to help facilitate outpatient hemodialysis. Awaits rehab placement.
[2016-09-27] MEDS: MULTIVITAMINS, THERA 1 EACH TAB PO SCH (11:41)
[2016-09-27] MEDS: FOLIC ACID 1 MG TAB OG-TUBE SCH (11:41)
[2016-09-27 12:03] LABS: Glucose,Whole Blood 143 mg/dL (75-99)
[2016-09-27] MEDS: THIAMINE 100 MG TAB OG-TUBE SCH (13:35)
[2016-09-27 17:14] LABS: Glucose,Whole Blood 163 mg/dL (75-99)
--- NOTE | 2016-09-27 20:38 | P.PN ---
Subjective This patient is a 40-year-old right-handed white male who was initially admitted to hospital with episode of unresponsiveness and acute respiratory failure. Patient had a very long course in the intensive care unit where he had evidence of anoxic encephalopathy. He slowly made some recovery and was transferred out of the ICU last week. Remains on the medical floor and is shown some improvement in his mental status since initial presentation. Today he was sitting up in chair with a sitter at the bedside. He has been pleasant and cooperative with the staff today. The patient is being followed closely by nephrology as he is dialysis dependent due to renal failure. residential property manager is working on outpatient hemodialysis treatment for the patient. His acute kidney injury is felt to be secondary to ischemic ATN secondary to rhabdomyolysis. The patient was initially treated with Keppra as he had evidence of anoxic myoclonus. The Keppra has been weaned off since early this week and he has shown no further need for Keppra at this time. He has had no further events related to myoclonus or seizures. He was seen by psychiatry yesterday and the recommendations have been noted. He has evidence of delirium that is showing some resolution and is felt to be multifactorial in origin. Psychiatry is recommending to continue him with Ativan and Seroquel. Neurologically he is shown some improvement in his overall mental status condition. As noted he is off of Keppra at this time and is no indication to resume anticonvulsant therapy for him following his slow recovery from anoxic encephalopathy. We will continue to see this patient on a when necessary basis. His overall prognosis at this time remains guarded. veterinary anatomist pursuing a discharge plan and possible placement in the outpatient hemodialysis clinic. Objective - Vital Signs Vital signs: Vital Signs Temp 97.7 F 09/27/16 15:00 Pulse 65 09/27/16 15:00 Resp 20 09/27/16 16:00 BP 143/80 09/27/16 15:00 Pulse Ox 100 09/27/16 15:00 Intake & Output 09/27/16 09/27/16 09/28/16 06:59 18:59 06:59 Intake Total 120 480 Output Total 30 0 Balance 90 480 Weight 74.5 kg Intake: Oral 120 480 Output: Urine 30 Straight 30 Stool 0 Other: Voiding Method Incontinent Incontinent # Voids 2 0 # Bowel Movements 1 0 ABP, PAP, CO, CI - Last Documented Arterial Blood Pressure 152/75 - Exam Physical examination: PHYSICAL EXAMINATION: Patient is resting comfortably in bed. He is following simple commands. VITAL SIGNS: Blood pressure is [143/80]. Heart rate is [65]. Respiration is [20] . Temperature is [97.7]. HEENT: Head is atraumatic, neck is supple, there were no carotid bruits. CHEST: Lungs are clear to auscultation and percussion. CARDIAC: S1, S2 normal rate and rhythm. There is no murmur. ABDOMEN: Soft and nontender. Bowel sounds are present. EXTREMITIES: There is no pedal edema. Peripheral pulses are present. Neurological examination: Patient is resting comfortably in bed. He is sitting up at bedside with little assistance. There is a sitter at bedside. He seems to be more awake and alert today and is following some simple commands. He has episodes of mild confusion. Neurological exam is otherwise nonfocal. - Labs CBC & Chem 7: 09/27/16 08:10 09/27/16 08:10 Labs: Abnormal Lab Results - Last 24 Hours (Table) 09/26/16 09/27/16 09/27/16 Range/Units 20:52 07:04 08:10 WBC 18.9 H (3.8-10.6) k/uL RBC 2.86 L (4.30-5.90) m/uL Hgb 9.0 L (13.0-17.5) gm/dL Hct 28.0 L (39.0-53.0) % Plt Count 482 H (150-450) k/uL Neutrophils # 16.4 H (1.3-7.7) k/uL Monocytes # 1.1 H (0-1.0) k/uL Sodium (137-145) mmol/L Potassium (3.5-5.1) mmol/L Chloride (98-107) mmol/L Carbon Dioxide (22-30) mmol/L BUN (9-20) mg/dL Creatinine (0.66-1.25) mg/dL Glucose (74-99) mg/dL POC Glucose (mg/dL) 145 H 181 H (75-99) mg/dL ALT (21-72) U/L Alkaline Phosphatase (38-126) U/L 09/27/16 09/27/16 09/27/16 Range/Units 08:10 11:41 17:03 WBC (3.8-10.6) k/uL RBC (4.30-5.90) m/uL Hgb (13.0-17.5) gm/dL Hct (39.0-53.0) % Plt Count (150-450) k/uL Neutrophils # (1.3-7.7) k/uL Monocytes # (0-1.0) k/uL Sodium 133 L (137-145) mmol/L Potassium 5.7 H (3.5-5.1) mmol/L Chloride 94 L (98-107) mmol/L Carbon Dioxide 16 L (22-30) mmol/L BUN 95 H* (9-20) mg/dL Creatinine 10.42 H* (0.66-1.25) mg/dL Glucose 165 H (74-99) mg/dL POC Glucose (mg/dL) 143 H 163 H (75-99) mg/dL ALT 81 H (21-72) U/L Alkaline Phosphatase 160 H (38-126) U/L Assessment and Plan (1) Anoxic encephalopathy Status: Acute Code(s): G93.1 - ANOXIC BRAIN DAMAGE, NOT ELSEWHERE CLASSIFIED (2) Acute hyperkalemia Status: Acute Code(s): E87.5 - HYPERKALEMIA (3) Acute respiratory failure Status: Acute Code(s): J96.00 - ACUTE RESPIRATORY FAILURE, UNSP W HYPOXIA OR HYPERCAPNIA (4) Alcoholic hepatitis Status: Acute Code(s): K70.10 - ALCOHOLIC HEPATITIS WITHOUT ASCITES (5) Sepsis Status: Acute Code(s): A41.9 - SEPSIS, UNSPECIFIED ORGANISM Plan: This patient is a 40-year-old male who is at the long medical stay following his initial admission with acute respiratory failure requiring intubation. He was in the intensive care unit up until last week. He is now been transferred to the medical floor and continues to show slow improvement. He was seen by psychiatry yesterday and we have reviewed their recommendations. The patient remains off of Keppra at this time and is had no further recurrence of mild clonus or seizure-like activity. He is being treated for acute kidney injury and is requiring hemodialysis and is dialysis dependent at this time. Nephrology is following him closely for this condition. Neurologically he is showing slight improvement in his overall mental status. He will require long- term treatment in the outpatient setting for his multiple medical problems. At this time we will sign off as he is neurologically stable. We will see the patient on a when necessary basis.
[2016-09-27 20:51] LABS: Glucose,Whole Blood 126 mg/dL (75-99)
[2016-09-27] MEDS ORDERED: HEPARIN SODIUM,PORCINE 5,000 UNIT/ML 1 ML VIAL ONE (21:30)
[2016-09-27] MEDS: SODIUM BICARBONATE TAB 650 MG TAB PO SCH (21:51)
[2016-09-27] MEDS: CEFEPIME 1 GM in SODIUM CHLORIDE 0.9% 50 ML IVPB SCH (21:54)
[2016-09-28] MEDS: HEPARIN SODIUM,PORCINE 5,000 UNIT/ML 1 ML VIAL SQ SCH ×4 (00:57→21:46)
[2016-09-28 07:16] LABS: Glucose,Whole Blood 120 mg/dL (75-99)
[2016-09-28] MEDS: ALBUTEROL NEBULIZED 2.5 MG/3 ML INHALATION SCH ×4 (07:23→19:51)
[2016-09-28] MEDS: BUDESONIDE 0.5 MG/2 ML NEBU INHALATION SCH ×2 (07:23→19:51)
[2016-09-28] MEDS: NICOTINE 21MG/24HR PATCH TRANSDERM SCH (08:10)
[2016-09-28] MEDS: cloNIDine HCL 0.1 MG TAB PO SCH ×3 (08:10→21:07)
[2016-09-28] MEDS: methylPREDNISolone SOD SUCCI 40 MG/ML 1 ML VIAL IV SCH (08:10)
[2016-09-28] MEDS: CALCIUM ACETATE 667 MG CAP PO SCH ×3 (08:10→18:16)
[2016-09-28] MEDS: LABETALOL 100 MG TAB PO SCH ×2 (08:11→21:07)
[2016-09-28] MEDS: SODIUM BICARBONATE TAB 650 MG TAB PO SCH ×2 (08:11→21:07)
[2016-09-28] MEDS: PANTOPRAZOLE 40 MG TABLET PO SCH (08:11)
[2016-09-28] MEDS: QUEtiapine 25 MG TAB PO SCH (08:12)
[2016-09-28] MEDS: INSULIN LISPRO (humaLOG) 300 UNIT/3 ML VIAL SQ SCH ×4 (08:12→21:45)
[2016-09-28 09:08] LABS: Calcium 9.4 mg/dL (8.4-10.2); Potassium 5.5 mmol/L (3.5-5.1); Total Bilirubin 1.1 mg/dL (0.2-1.3); Total Protein 7.2 g/dL (6.3-8.2)
[2016-09-28] MEDS ORDERED: SODIUM BICARB 8.4% 50 ML SYR (1 MEQ/ML) IV STA (09:48)
--- NOTE | 2016-09-28 11:04 | P.PN ---
Subjective Principal diagnosis: Patient is seen in follow-up for acute kidney injury. Unclear as to what his baseline renal function is. This admission he has been dialysis dependent. He currently has a permacath in place. He presented with severe rhabdomyolysis. He seems to have developed anoxic brain injury as well. He is currently awake and alert. He is working with physical therapy. He remains anuric. Overall significantly improving. Vital signs are stable. General: The patient appeared well nourished and normally developed. HEENT: Head exam is unremarkable. Neck is without jugular venous distension. LUNGS: Lungs are clear to auscultation and percussion. Breath sounds decreased. HEART: Rate and Rhythm are regular. First and second heart sounds normal. No murmurs, rubs or gallops. ABDOMEN: Abdominal exam reveals normal bowel sounds. Non-tender and non- distended. No evidence of peritonitis. EXTREMITITES: No clubbing, cyanosis, or edema. Objective - Vital Signs Vital signs: Vital Signs Temp 97.6 F 09/28/16 07:00 Pulse 74 09/28/16 07:36 Resp 19 09/28/16 08:00 BP 143/84 09/28/16 07:00 Pulse Ox 100 09/28/16 07:00 Intake & Output 09/27/16 09/28/16 09/28/16 18:59 06:59 18:59 Intake Total 480 480 Output Total 0 0 Balance 480 480 Weight 72 kg Intake: Oral 480 480 Output: Stool 0 0 Other: Voiding Method Incontinent Incontinent Toilet # Voids 0 1 # Bowel Movements 0 1 ABP, PAP, CO, CI - Last Documented Arterial Blood Pressure 152/75 - Labs CBC & Chem 7: 09/27/16 08:10 09/28/16 08:09 Labs: Abnormal Lab Results - Last 24 Hours (Table) 09/27/16 09/27/16 09/27/16 Range/Units 11:41 17:03 20:48 Sodium (137-145) mmol/L Potassium (3.5-5.1) mmol/L Chloride (98-107) mmol/L Carbon Dioxide (22-30) mmol/L BUN (9-20) mg/dL Creatinine (0.66-1.25) mg/dL Glucose (74-99) mg/dL POC Glucose (mg/dL) 143 H 163 H 126 H (75-99) mg/dL Alkaline Phosphatase (38-126) U/L 09/28/16 09/28/16 Range/Units 07:15 08:09 Sodium 134 L (137-145) mmol/L Potassium 5.5 H (3.5-5.1) mmol/L Chloride 96 L (98-107) mmol/L Carbon Dioxide 21 L (22-30) mmol/L BUN 56 H (9-20) mg/dL Creatinine 7.53 H* (0.66-1.25) mg/dL Glucose 141 H (74-99) mg/dL POC Glucose (mg/dL) 120 H (75-99) mg/dL Alkaline Phosphatase 156 H (38-126) U/L Assessment and Plan Plan: Assessment: #1. Oliguric acute kidney injury secondary to ischemic ATN secondary to rhabdomyolysis. No improvement in urine output with IV diuretics. Currently hemodialysis dependent. #2. Pulmonary edema. Resolved. #3. Severe rhabdomyolysis. #4. Metabolic acidosis secondary to acute kidney injury. #5. Hyperphosphatemia secondary to oliguria/renal failure. #6. Hypocalcemia secondary to acute kidney injury as well as rhabdomyolysis. Resolved. #7. Anemia. Iron deficiency present. Status post 3 doses of IV iron completed September 21. #8. Anoxic brain injury. Plan: Hemodialysis tomorrow with goal 3-4 L ultrafiltration. Maintain PhosLo with meals. Maintain Aranesp. Continue oral sodium bicarbonate supplementation. Neurology following. Maintained on Keppra. He remains anuric with no evidence of renal recovery at this time. He may have possibly progressed to end-stage renal disease. leave manager on board to help facilitate outpatient hemodialysis. Awaits rehab placement.
[2016-09-28] MEDS: DARBEPOETIN ALFA 40 MCG/0.4 ML SYRINGE SQ SCH (11:17)
[2016-09-28] MEDS: FOLIC ACID 1 MG TAB OG-TUBE SCH (11:18)
[2016-09-28] MEDS: MULTIVITAMINS, THERA 1 EACH TAB PO SCH (11:18)
[2016-09-28] MEDS: THIAMINE 100 MG TAB OG-TUBE SCH (11:18)
[2016-09-28 12:18] LABS: Glucose,Whole Blood 129 mg/dL (75-99)
--- NOTE | 2016-09-28 13:00 | P.PN ---
Subjective 40-year-old woman being seen on rounds this morning currently sitting up in a chair with a sitter at the bedside. There's been no behaviors disturbance noted during the night patient has been pleasant cooperative oriented to self and place no recall of event patients being followed by nephrology currently is dialysis dependent. Currently has a permacath in place. electronics engineering manager is pursuing the discharge plan Objective - Vital Signs Vital signs: Vital Signs Temp 97.6 F 09/28/16 07:00 Pulse 72 09/28/16 11:14 Resp 19 09/28/16 08:00 BP 143/84 09/28/16 07:00 Pulse Ox 100 09/28/16 07:00 Intake & Output 09/27/16 09/28/16 09/28/16 18:59 06:59 18:59 Intake Total 480 480 Output Total 0 0 Balance 480 480 Weight 72 kg Intake: Oral 480 480 Output: Stool 0 0 Other: Voiding Method Incontinent Incontinent Toilet # Voids 0 1 # Bowel Movements 0 1 ABP, PAP, CO, CI - Last Documented Arterial Blood Pressure 152/75 - Exam Physical exam 40-year-old gentleman sitting up in a chair pleasant cooperative is no agitated behavior noted. Sitter at the bedside. Did note the patient does need assistance to ambulate from bed to bathroom gait slightly unsteady Lungs essentially clear with adequate air movement Heart S1-S2 audible and regular no murmur noted Abdomen soft nontender no reports of nausea vomiting Extremities no edema noted triple-lumen catheter in the right femoral area - Labs CBC & Chem 7: 09/27/16 08:10 09/28/16 08:09 Labs: Abnormal Lab Results - Last 24 Hours (Table) 09/27/16 09/27/16 09/27/16 Range/Units 11:41 17:03 20:48 Sodium (137-145) mmol/L Potassium (3.5-5.1) mmol/L Chloride (98-107) mmol/L Carbon Dioxide (22-30) mmol/L BUN (9-20) mg/dL Creatinine (0.66-1.25) mg/dL Glucose (74-99) mg/dL POC Glucose (mg/dL) 143 H 163 H 126 H (75-99) mg/dL Alkaline Phosphatase (38-126) U/L 01/26/17 01/26/17 Range/Units 07:15 08:09 Sodium 134 L (137-145) mmol/L Potassium 5.5 H (3.5-5.1) mmol/L Chloride 96 L (98-107) mmol/L Carbon Dioxide 21 L (22-30) mmol/L BUN 56 H (9-20) mg/dL Creatinine 7.53 H* (0.66-1.25) mg/dL Glucose 141 H (74-99) mg/dL POC Glucose (mg/dL) 120 H (75-99) mg/dL Alkaline Phosphatase 156 H (38-126) U/L Assessment and Plan Plan: Impression Present on admission acute hypoxic respiratory failure on vent support multifactorial Present on admission severely hyperkalemic potassium 8.7 Present on admission urine drug screen positive for opiates History of Polysubstance drug abuse Suspect anoxic brain injury Present on admission acute kidney injury anion gap metabolic acidosis due to acute kidney injury with lactic acidosis Active tobacco abuse Possible seizure activity Right lower lobe atelectasis with an aspiration event Severe refractory shock resolved Present on admission Rhabdomyolysis Lactic acidosis History of a depressive disorder nonspecified on Lexapro at home Present on admission Hypomagnesemia with elevated potassium hyperkalemic Present on admission acute alcohol intoxication History of chronic alcoholism daily consumption Present on Admission elevated lipase amylase AST ALT suspect acute pancreatitis due to chronic alcoholism Present on admission sepsis likely due to aspiration right lower lobe pneumonia Alcoholic hepatitis history of alcohol abuse dependency Persistent acute hyperkalemia Present on admission and anoxic encephalopathy Anoxic brain injury Oliguric acute kidney injury secondary to ischemic ATN secondary to rhabdomyolysis. No improvement in urine output with IV diuretics. Currently hemodialysis dependent. Pulmonary edema. Resolved. Anemia suspect iron deficiency Hyperphosphatemia secondary to oliguria/renal failure. Hypocalcemia secondary to acute kidney injury as well as rhabdomyolysis. Resolved.. Anemia. Iron deficiency present. Status post 3 doses of IV iron completed September 21. Leukocytosis persist suspect steroid-induced on Solu-Medrol 40 IV every 12 Plan electronics engineering manager pursuing placement will need outpatient hemodialysis Continue recommendations by nephrology defer to Monitor electrolytes DVT and GI prophylaxis IV fluid at 75 an hour Continue recommendations from all consulting physicians defer to Scheduled hemodialysis per nephrology Stop Keppra per neurology's recommendations The above dictated assessment and findings were discussed with dr brito Impression and the plan of care have been dictated as directed. Pavithra Hameed nurse practitioner acting as a scribe for dr brito
--- NOTE | 2016-09-28 14:18 | P.PN ---
Progress Note - Text DATE OF SERVICE: 09/28/2016 Patient was seen for psychiatric follow-up, Patient was seating on his recliner ,more alert and able to participate in session, SUBJECTIVE: Patient endorses depression and anxiety ,rates both 7/10 ,10 being the worst, reports poor sleep ,poor appetite,guilt feeling regarding his addiction and past legal problems ,denies any hopeless feeling ,denies any suicidal or homicidal ideation,no access to firearm,no psychotic features ,alert,oriented to person ,place but not today date ,his insight to his addiction is improving.Talked about his children and he wishes to see them more often "Because I lost my license ,I do see them 2-3 times a month ,but I am buying a car to my 16 years old daughter and I will be able to see my kids more often" Discussed his alcohol and opium abuse :was buying "NORCO"from street "I did like to have buzz in morning then I drink alcohol to calm down" Patient was in multiple SA program ,was on Naltrexone in past and did help his recovery,currently he is not in treatment ,resistant to participate in AA or NA meeting Was in [facility] in the past for depression and SA ,tried Zoloft and Lexapro: were ineffective MENTAL STATUS EXAM Patient is cooperative ,coherent ,affect is appropriate ,denies any psychotic features ,denies any suicidal or homicidal ideation ASSESSMENT: 1)Alcohol and opium use disorder 2) Substance abuse mood disorder 3) Encephalopathy ,resolved PLAN AND RECOMMENDATIONS: 1) Change Seroquel to 50 mg HS instead of 25 mg BID 2) Start Cymbalta for depression ,Naltrexone for SA 3) Do recommend weaning him off Librium 4) [facility] for dual diagnosis
[2016-09-28 16:59] LABS: Glucose,Whole Blood 162 mg/dL (75-99)
[2016-09-28] MEDS: CEFEPIME 1 GM in SODIUM CHLORIDE 0.9% 50 ML IVPB SCH (21:07)
[2016-09-28] MEDS: QUEtiapine 50 MG TAB PO SCH (21:07)
[2016-09-28 21:33] LABS: Glucose,Whole Blood 139 mg/dL (75-99)
[2016-09-29] MEDS ORDERED: HEPARIN SODIUM,PORCINE 5,000 UNIT/ML 1 ML VIAL ONE
[2016-09-29] MEDS: BUDESONIDE 0.5 MG/2 ML NEBU INHALATION SCH ×2 (06:56→19:12)
[2016-09-29] MEDS: ALBUTEROL NEBULIZED 2.5 MG/3 ML INHALATION SCH ×3 (06:56→19:12)
[2016-09-29 07:06] LABS: Glucose,Whole Blood 93 mg/dL (75-99)
[2016-09-29] MEDS: CALCIUM ACETATE 667 MG CAP PO SCH ×3 (07:53→17:18)
[2016-09-29] MEDS: INSULIN LISPRO (humaLOG) 300 UNIT/3 ML VIAL SQ SCH ×4 (07:53→21:02)
[2016-09-29] MEDS: PANTOPRAZOLE 40 MG TABLET PO SCH (07:53)
[2016-09-29] MEDS: HEPARIN SODIUM,PORCINE 5,000 UNIT/ML 1 ML VIAL SQ SCH ×3 (07:53→23:09)
[2016-09-29] MEDS: cloNIDine HCL 0.1 MG TAB PO SCH ×3 (07:53→21:01)
[2016-09-29] MEDS: NICOTINE 21MG/24HR PATCH TRANSDERM SCH (07:54)
[2016-09-29] MEDS: DULoxetine HCL 20 MG CAPSULE.DR PO SCH (07:54)
[2016-09-29] MEDS: LABETALOL 100 MG TAB PO SCH ×2 (07:54→21:02)
[2016-09-29] MEDS: NALTREXONE HCL 50 MG TAB PO SCH (07:54)
[2016-09-29] MEDS: SODIUM BICARBONATE TAB 650 MG TAB PO SCH ×2 (07:55→21:00)
[2016-09-29] MEDS ORDERED: VENLAFAXINE HCL ER 75 MG CAP PO SCH (09:00)
[2016-09-29] MEDS ORDERED: predniSONE 20 MG TAB PO SCH (09:00)
--- NOTE | 2016-09-29 09:15 | P.PN ---
Subjective Principal diagnosis: Patient is seen in follow-up for acute kidney injury. Unclear as to what his baseline renal function is. This admission he has been dialysis dependent. He currently has a permacath in place. He presented with severe rhabdomyolysis. He seems to have developed anoxic brain injury as well. He is currently awake and alert. He remains anuric. Denies chest pain or shortness of breath. Vital signs are stable. General: The patient appeared well nourished and normally developed. HEENT: Head exam is unremarkable. Neck is without jugular venous distension. LUNGS: Lungs are clear to auscultation and percussion. Breath sounds decreased. HEART: Rate and Rhythm are regular. First and second heart sounds normal. No murmurs, rubs or gallops. ABDOMEN: Abdominal exam reveals normal bowel sounds. Non-tender and non- distended. No evidence of peritonitis. EXTREMITITES: No clubbing, cyanosis, or edema. Objective - Vital Signs Vital signs: Vital Signs Temp 96.1 F L 09/29/16 07:00 Pulse 73 09/29/16 07:00 Resp 18 09/29/16 07:00 BP 155/74 09/29/16 07:00 Pulse Ox 100 09/29/16 07:00 Intake & Output 09/28/16 09/29/16 09/29/16 18:59 06:59 18:59 Intake Total 720 240 Output Total 0 Balance 720 240 Weight 72 kg 74 kg Intake: Oral 720 240 Output: Stool 0 Other: Voiding Method Toilet # Voids 0 1 # Bowel Movements 0 1 ABP, PAP, CO, CI - Last Documented Arterial Blood Pressure 152/75 - Labs CBC & Chem 7: 09/27/16 08:10 09/28/16 17:14 Labs: Abnormal Lab Results - Last 24 Hours (Table) 09/28/16 09/28/16 09/28/16 Range/Units 08:09 12:17 16:58 Sodium 134 L (137-145) mmol/L Potassium 5.5 H (3.5-5.1) mmol/L Chloride 96 L (98-107) mmol/L Carbon Dioxide 21 L (22-30) mmol/L BUN 56 H (9-20) mg/dL Creatinine 7.53 H* (0.66-1.25) mg/dL Glucose 141 H (74-99) mg/dL POC Glucose (mg/dL) 129 H 162 H (75-99) mg/dL Alkaline Phosphatase 156 H (38-126) U/L 09/28/16 09/28/16 Range/Units 17:14 21:31 Sodium (137-145) mmol/L Potassium 5.6 H (3.5-5.1) mmol/L Chloride (98-107) mmol/L Carbon Dioxide (22-30) mmol/L BUN (9-20) mg/dL Creatinine (0.66-1.25) mg/dL Glucose (74-99) mg/dL POC Glucose (mg/dL) 139 H (75-99) mg/dL Alkaline Phosphatase (38-126) U/L Assessment and Plan Plan: Assessment: #1. Oliguric acute kidney injury secondary to ischemic ATN secondary to rhabdomyolysis. No improvement in urine output with IV diuretics. Currently hemodialysis dependent. #2. Pulmonary edema. Resolved. #3. Severe rhabdomyolysis. #4. Metabolic acidosis secondary to acute kidney injury. #5. Hyperphosphatemia secondary to oliguria/renal failure. #6. Hypocalcemia secondary to acute kidney injury as well as rhabdomyolysis. Resolved. #7. Anemia. Iron deficiency present. Status post 3 doses of IV iron completed September 21. #8. Anoxic brain injury. Plan: Hemodialysis today with goal 3-4 L ultrafiltration. Maintain PhosLo with meals. Maintain Aranesp. Continue oral sodium bicarbonate supplementation. Neurology following. Maintained on Keppra. He remains anuric with no evidence of renal recovery at this time. He may have possibly progressed to end-stage renal disease. fish hatchery manager on board to help facilitate outpatient hemodialysis. Awaits rehab placement.
[2016-09-29 09:34] LABS: Calcium 9.1 mg/dL (8.4-10.2); Potassium 5.4 mmol/L (3.5-5.1); Total Protein 6.6 g/dL (6.3-8.2)
--- NOTE | 2016-09-29 10:38 | P.PN ---
Subjective 40-year-old gentleman being seen on rounds this morning patient is currently ambulating from the bed to the bathroom note the gait was steady. Patient's pleasant cooperative and oriented to person and place. Patient states "I hope to go home they are trying to find a dialysis place for me my girlfriend is going to help me out" nephrology is following and patient is scheduled for hemodialysis today. The outpatient case manager is continuing to help facilitate outpatient hemodialysis. Patient is dialysis dependent. Objective - Vital Signs Vital signs: Vital Signs Temp 96.1 F L 09/29/16 07:00 Pulse 73 09/29/16 07:00 Resp 18 09/29/16 07:00 BP 155/74 09/29/16 07:00 Pulse Ox 100 09/29/16 07:00 Intake & Output 09/28/16 09/29/16 09/29/16 18:59 06:59 18:59 Intake Total 720 240 Output Total 0 Balance 720 240 Weight 72 kg 74 kg Intake: Oral 720 240 Output: Stool 0 Other: Voiding Method Toilet Toilet # Voids 0 1 # Bowel Movements 0 1 ABP, PAP, CO, CI - Last Documented Arterial Blood Pressure 152/75 - Exam Physical exam 40-year-old gentleman sitting up pleasant cooperative oriented to person and place Lungs essentially clear on room air no shortness of breath Heart S1-S2 audible regular Abdomen soft nontender reports no nausea vomiting tolerating diet Extremities no edema noted - Labs CBC & Chem 7: 09/27/16 08:10 09/29/16 09:01 Labs: Abnormal Lab Results - Last 24 Hours (Table) 09/28/16 09/28/16 09/28/16 Range/Units 12:17 16:58 17:14 Sodium (137-145) mmol/L Potassium 5.6 H (3.5-5.1) mmol/L Chloride (98-107) mmol/L Carbon Dioxide (22-30) mmol/L BUN (9-20) mg/dL Creatinine (0.66-1.25) mg/dL Glucose (74-99) mg/dL POC Glucose (mg/dL) 129 H 162 H (75-99) mg/dL Alkaline Phosphatase (38-126) U/L 09/28/16 09/29/16 Range/Units 21:31 09:01 Sodium 132 L (137-145) mmol/L Potassium 5.4 H (3.5-5.1) mmol/L Chloride 93 L (98-107) mmol/L Carbon Dioxide 20 L (22-30) mmol/L BUN 76 H (9-20) mg/dL Creatinine 9.55 H* (0.66-1.25) mg/dL Glucose 112 H (74-99) mg/dL POC Glucose (mg/dL) 139 H (75-99) mg/dL Alkaline Phosphatase 174 H (38-126) U/L Assessment and Plan Plan: Impression Present on admission acute hypoxic respiratory failure on vent support multifactorial Present on admission severely hyperkalemic potassium 8.7 Present on admission urine drug screen positive for opiates History of Polysubstance drug abuse Suspect anoxic brain injury Present on admission acute kidney injury anion gap metabolic acidosis due to acute kidney injury with lactic acidosis Active tobacco abuse Possible seizure activity Right lower lobe atelectasis with an aspiration event Severe refractory shock resolved Present on admission Rhabdomyolysis Lactic acidosis History of a depressive disorder nonspecified on Lexapro at home Present on admission Hypomagnesemia with elevated potassium hyperkalemic Present on admission acute alcohol intoxication History of chronic alcoholism daily consumption Present on Admission elevated lipase amylase AST ALT suspect acute pancreatitis due to chronic alcoholism Present on admission sepsis likely due to aspiration right lower lobe pneumonia Alcoholic hepatitis history of alcohol abuse dependency Persistent acute hyperkalemia Present on admission and anoxic encephalopathy Anoxic brain injury Oliguric acute kidney injury secondary to ischemic ATN secondary to rhabdomyolysis. No improvement in urine output with IV diuretics. Currently hemodialysis dependent. Pulmonary edema. Resolved. Anemia suspect iron deficiency Hyperphosphatemia secondary to oliguria/renal failure. Hypocalcemia secondary to acute kidney injury as well as rhabdomyolysis. Resolved.. Anemia. Iron deficiency present. Status post 3 doses of IV iron completed September 21. 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 Pavithra Hameed nurse practitioner acting as a scribe for dr brito
[2016-09-29] MEDS: MULTIVITAMINS, THERA 1 EACH TAB PO SCH (11:26)
[2016-09-29] MEDS: THIAMINE 100 MG TAB OG-TUBE SCH (11:26)
[2016-09-29] MEDS: FOLIC ACID 1 MG TAB OG-TUBE SCH (11:26)
[2016-09-29 11:45] LABS: Glucose,Whole Blood 123 mg/dL (75-99)
[2016-09-29] MEDS ORDERED: LEVOFLOXACIN 500 MG TAB PO SCH (12:00)
[2016-09-29 17:06] LABS: Glucose,Whole Blood 139 mg/dL (75-99)
[2016-09-29 20:28] LABS: Glucose,Whole Blood 124 mg/dL (75-99)
[2016-09-29] MEDS: QUEtiapine 50 MG TAB PO SCH (21:01)
[2016-09-30 07:15] LABS: Glucose,Whole Blood 102 mg/dL (75-99)
[2016-09-30] MEDS: INSULIN LISPRO (humaLOG) 300 UNIT/3 ML VIAL SQ SCH ×3 (07:50→17:57)
[2016-09-30] MEDS: SODIUM BICARBONATE TAB 650 MG TAB PO SCH ×2 (08:03→21:59)
[2016-09-30] MEDS: PANTOPRAZOLE 40 MG TABLET PO SCH (08:04)
[2016-09-30] MEDS: predniSONE 20 MG TAB PO SCH (08:04)
[2016-09-30] MEDS: CALCIUM ACETATE 667 MG CAP PO SCH ×3 (08:05→17:55)
[2016-09-30] MEDS: LABETALOL 100 MG TAB PO SCH ×2 (08:05→21:59)
[2016-09-30] MEDS: NALTREXONE HCL 50 MG TAB PO SCH (08:05)
[2016-09-30] MEDS: DULoxetine HCL 20 MG CAPSULE.DR PO SCH (08:05)
[2016-09-30] MEDS: cloNIDine HCL 0.1 MG TAB PO SCH ×3 (08:05→21:59)
[2016-09-30] MEDS: HEPARIN SODIUM,PORCINE 5,000 UNIT/ML 1 ML VIAL SQ SCH ×3 (08:06→23:48)
[2016-09-30] MEDS: ALBUTEROL NEBULIZED 2.5 MG/3 ML INHALATION SCH ×4 (08:08→20:28)
[2016-09-30] MEDS: BUDESONIDE 0.5 MG/2 ML NEBU INHALATION SCH ×2 (08:08→20:28)
[2016-09-30] MEDS: NICOTINE 21MG/24HR PATCH TRANSDERM SCH (08:09)
[2016-09-30] MEDS: THIAMINE 100 MG TAB OG-TUBE SCH (11:58)
[2016-09-30] MEDS: LEVOFLOXACIN 250 MG TAB PO SCH (11:58)
[2016-09-30] MEDS: MULTIVITAMINS, THERA 1 EACH TAB PO SCH (11:58)
[2016-09-30] MEDS: FOLIC ACID 1 MG TAB OG-TUBE SCH (11:59)
[2016-09-30 12:04] LABS: Calcium 9.4 mg/dL (8.4-10.2); Potassium 5.5 mmol/L (3.5-5.1)
[2016-09-30 12:29] LABS: Glucose,Whole Blood 127 mg/dL (75-99)
[2016-09-30] MEDS ORDERED: VANCOMYCIN 1,000 MG in SODIUM CHLORIDE 0.9% 250 ML IVPB ONE (13:30)
[2016-09-30 14:52] VITALS: BMI 23.8
[2016-09-30] MEDS: QUEtiapine 50 MG TAB PO SCH (21:59)
[2016-10-01] MEDS: CALCIUM ACETATE 667 MG CAP PO SCH ×3 (07:40→17:22)
[2016-10-01] MEDS: PANTOPRAZOLE 40 MG TABLET PO SCH (07:40)
[2016-10-01] MEDS: cloNIDine HCL 0.1 MG TAB PO SCH ×3 (07:41→21:47)
[2016-10-01] MEDS: NALTREXONE HCL 50 MG TAB PO SCH (07:41)
[2016-10-01] MEDS: LABETALOL 100 MG TAB PO SCH ×2 (07:41→21:40)
[2016-10-01] MEDS: predniSONE 20 MG TAB PO SCH (07:41)
[2016-10-01] MEDS: DULoxetine HCL 20 MG CAPSULE.DR PO SCH (07:41)
[2016-10-01] MEDS: HEPARIN SODIUM,PORCINE 5,000 UNIT/ML 1 ML VIAL SQ SCH ×3 (07:42→23:19)
[2016-10-01] MEDS: SODIUM BICARBONATE TAB 650 MG TAB PO SCH ×2 (07:42→21:41)
[2016-10-01] MEDS: NICOTINE 21MG/24HR PATCH TRANSDERM SCH (07:42)
[2016-10-01] MEDS: BUDESONIDE 0.5 MG/2 ML NEBU INHALATION SCH ×2 (08:13→20:07)
[2016-10-01] MEDS: ALBUTEROL NEBULIZED 2.5 MG/3 ML INHALATION SCH ×4 (08:13→20:07)
--- NOTE | 2016-10-01 08:55 | PN ---
SUBJECTIVE: This is a 40-year-old white male with renal insufficiency. Awaiting for dialysis as an outpatient to be set up prior to discharge. Sodium is 131, potassium 5.5, BUN 47, creatinine is 7.4. Sugars have been in the 100s. CARDIOVASCULAR: S1, S2. LUNGS: Clear. GI: Soft. HEMATOLOGIC: Negative Homans. ASSESSMENT: 1. Acute renal insufficiency. 2. Hyperkalemia. 3. Hyponatremia. 4. Status post rhabdomyolysis. Continue with current treatment. Continue with dialysis 3 times a week. As soon as this is set up as an outpatient, we will be able to discharge him home. He has some delirium that has been on-and-off but is improving over the last 24 hours. Please see further orders.
[2016-10-01 10:06] LABS: Calcium 9.3 mg/dL (8.4-10.2)
[2016-10-01] MEDS: MULTIVITAMINS, THERA 1 EACH TAB PO SCH (11:02)
[2016-10-01] MEDS: THIAMINE 100 MG TAB OG-TUBE SCH (11:02)
[2016-10-01] MEDS: LEVOFLOXACIN 250 MG TAB PO SCH (11:03)
[2016-10-01] MEDS: FOLIC ACID 1 MG TAB OG-TUBE SCH (11:03)
--- NOTE | 2016-10-01 17:54 | P.PN ---
Progress Note - Text Interval history: Patient seen in psychiatric follow-up today. His girlfriend is present during the interview. He reports that he is looking at discharge planning for tomorrow. He talks about having started dialysis in the hospital. He is being linked with outpatient dialysis. He talks about history of alcohol use disorder. He has been started on Cymbalta. He also talks about history of anxiety. Mental status exam: He is alert and cooperative with the interview. His speech is fluent, not rapid or pressured. Thought processes organized. His mood is described as okay. He denies any thoughts of harm to self or others. There is no evidence of agitation or current psychosis. He does not verbalize any current hallucinations, apparently he was experiencing these earlier in the hospitalization. He does not appear to responding to any internal stimuli. He does not make any [place] delusional statements. Plan: We'll provide patient with outpatient referral sheet for outpatient treatment. No new psychotropic medication recommendations at this point in time. He is also encouraged regarding attending AA. I do not see any inpatient psychiatric criteria at this time. Dr. Rutherford to resume care this patient starting tomorrow.
--- NOTE | 2016-10-01 18:17 | P.PN ---
Progress Note - Text Addendum note: Spoke with patient again regarding antidepressant treatment. Discussed Prozac no adjustment for renal dosing, may be a better choice compared to Cymbalta at this time in terms of his kidney function. Patient would like to initiate low-dose Prozac instead of the Cymbalta at this time. We 'll discontinue Cymbalta and start on Prozac 10 mg daily.
[2016-10-01] MEDS: QUEtiapine 50 MG TAB PO SCH (21:41)
[2016-10-02 01:18] VITALS: RESP 16
[2016-10-02 07:52] VITALS: BP 150/84; PULSE 83; TEMP 97.2
[2016-10-02] MEDS: LABETALOL 100 MG TAB PO SCH (08:25)
[2016-10-02] MEDS: PANTOPRAZOLE 40 MG TABLET PO SCH (08:25)
[2016-10-02] MEDS: NALTREXONE HCL 50 MG TAB PO SCH (08:25)
[2016-10-02] MEDS: CALCIUM ACETATE 667 MG CAP PO SCH ×2 (08:25→12:42)
[2016-10-02] MEDS: predniSONE 20 MG TAB PO SCH (08:25)
[2016-10-02] MEDS: cloNIDine HCL 0.1 MG TAB PO SCH (08:25)
[2016-10-02] MEDS: SODIUM BICARBONATE TAB 650 MG TAB PO SCH (08:25)
[2016-10-02] MEDS: HEPARIN SODIUM,PORCINE 5,000 UNIT/ML 1 ML VIAL SQ SCH (08:27)
[2016-10-02] MEDS: NICOTINE 21MG/24HR PATCH TRANSDERM SCH (08:28)
[2016-10-02 08:38] LABS: Potassium 5.3 mmol/L (3.5-5.1)
[2016-10-02] MEDS ORDERED: FLUoxetine HCL 10 MG CAP PO SCH (09:00)
[2016-10-02] MEDS: ALBUTEROL NEBULIZED 2.5 MG/3 ML INHALATION SCH ×3 (09:16→15:53)
[2016-10-02] MEDS: BUDESONIDE 0.5 MG/2 ML NEBU INHALATION SCH (09:16)
--- NOTE | 2016-10-02 09:55 | PN ---
DATE OF SERVICE: 10/01/2016 The patient has been hemodynamically stable. He is not complaining of any shortness of breath. On physical examination, blood pressure 128/71, respiratory rate 20, pulse of 79, temperature 98 degrees Fahrenheit. HEENT is unremarkable. Chest is clear. Cardiovascular system reveals an S1, S2. Abdomen is soft. There is no pedal edema. IMPRESSION: 1. Acute hypoxic respiratory failure, for which she has been doing significantly better. 2. Refractory shock with delirium tremens, for which she is doing better. 3. Toxic metabolic encephalopathy for which she did not ultimately seem to have anoxic brain injury. 4. Acute renal failure on dialysis. 5. Rhabdomyolysis. Continue him on his current medications, which were reviewed. From a pulmonary standpoint, discharge planning is appropriate.
--- NOTE | 2016-10-02 10:50 | P.PN ---
Subjective Principal diagnosis: Patient is seen in follow-up for acute kidney injury. Unclear as to what his baseline renal function is. This admission he has been dialysis dependent. He currently has a permacath in place. He presented with severe rhabdomyolysis. He is currently awake and alert. He remains anuric. Denies chest pain or shortness of breath. Vital signs are stable. General: The patient appeared well nourished and normally developed. HEENT: Head exam is unremarkable. Neck is without jugular venous distension. LUNGS: Lungs are clear to auscultation and percussion. Breath sounds decreased. HEART: Rate and Rhythm are regular. First and second heart sounds normal. No murmurs, rubs or gallops. ABDOMEN: Abdominal exam reveals normal bowel sounds. Non-tender and non- distended. No evidence of peritonitis. EXTREMITITES: No clubbing, cyanosis, or edema. Objective - Vital Signs Vital signs: Vital Signs Temp 97.2 F L 10/02/16 07:00 Pulse 83 10/02/16 07:00 Resp 16 10/02/16 07:00 BP 150/84 10/02/16 07:00 Pulse Ox 99 10/02/16 07:00 Intake & Output 10/01/16 10/02/16 10/02/16 18:59 06:59 18:59 Intake Total 600 160 Balance 600 160 Weight 84 kg Intake: IV 160 0.9 @ KVO 160 Oral 600 Other: Voiding Method Toilet Toilet Urinal Urinal # Voids 1 2 ABP, PAP, CO, CI - Last Documented Arterial Blood Pressure 152/75 - Labs CBC & Chem 7: 09/27/16 08:10 10/02/16 08:01 Labs: Abnormal Lab Results - Last 24 Hours (Table) 10/02/16 Range/Units 08:01 Sodium 124 L (137-145) mmol/L Potassium 5.3 H (3.5-5.1) mmol/L Chloride 85 L (98-107) mmol/L BUN 62 H (9-20) mg/dL Creatinine 10.88 H* (0.66-1.25) mg/dL Glucose 111 H (74-99) mg/dL Assessment and Plan Plan: Assessment: #1. Oliguric acute kidney injury secondary to ischemic ATN secondary to rhabdomyolysis. No improvement in urine output with IV diuretics. Currently hemodialysis dependent. #2. Pulmonary edema. Resolved. #3. Severe rhabdomyolysis. #4. Metabolic acidosis secondary to acute kidney injury. #5. Hyperphosphatemia secondary to oliguria/renal failure. #6. Hypocalcemia secondary to acute kidney injury as well as rhabdomyolysis. Resolved. #7. Anemia. Iron deficiency present. Status post 3 doses of IV iron completed September 21. #8. Hyponatremia. Slightly hypervolemic in nature secondary to renal failure. Plan: Hemodialysis today with goal 3-4 L ultrafiltration. Maintain PhosLo with meals. Maintain Aranesp. Continue oral sodium bicarbonate supplementation. Neurology following. Maintained on Keppra. He remains anuric with no evidence of renal recovery at this time. He may have possibly progressed to end-stage renal disease. computer systems manager on board to help facilitate outpatient hemodialysis. Awaits rehab placement.
--- NOTE | 2016-10-02 11:25 | PN ---
SUBJECTIVE: This is a 40-year-old white male with acute respiratory failure, acute delirium, anoxic brain injury secondary to rhabdomyolysis and renal failure. He is being set up for outpatient renal dialysis for 3 times a week and will be discharged home tomorrow. CARDIOVASCULAR: S1, S2. ABDOMEN: Soft. GI: Increased bowel sounds. HEMATOLOGIC: Negative Homans. PSYCHIATRIC: Fair mood and affect. ASSESSMENT: Acute respiratory failure secondary to acute renal failure rhabdomyolysis, renal insufficiency hyperkalemia. Plan is to set up for outpatient dialysis tomorrow and he will be discharged home to follow up as an outpatient. Current medications will be continued.
--- NOTE | 2016-10-02 11:37 | P.DS ---
Providers Date of admission: 09/09/16 16:33 Expected date of discharge: 10/02/16 Attending physician: Alexandro Brito Consults: 09/09/16 17:43 Consult Physician Stat Consulting Provider: Hunter Sanchez Consult Reason/Comments: seizures Do you want consulting provider notified?: Yes 09/09/16 19:27 Consult Physician Stat Consulting Provider: Robert Navarrete Consult Reason/Comments: urgent dialysis catheter Do you want consulting provider notified?: Yes 09/21/16 16:50 Consult Physician Routine Consulting Provider: Juan Claudio Consult Reason/Comments: PMR consult for acute inpatient rehab Do you want consulting provider notified?: Yes 09/26/16 08:41 Consult Physician Routine Consulting Provider: Ruth Rutherford Consult Reason/Comments: agressive behavior Do you want consulting provider notified?: Yes 09/26/16 09:17 Consult Physician Stat Consulting Provider: Ruth Rutherford Consult Reason/Comments: psychosis Do you want consulting provider notified?: Yes 09/30/16 09:49 Consult Physician Stat Consulting Provider: Ruth Rutherford Consult Reason/Comments: aiden Do you want consulting provider notified?: Yes Primary care physician: [facility] Course: A 40-year-old who presented on the day of admission via the EMS system which was activated on September 09 after patient was found several hours by his boss sitting in a recliner unresponsive. EMS was called. EMS noted the patient had vomited. Patient was given Narcan with some improvement. Patient was found have pinpoint pupils initially. Patient was unresponsive and lethargic and not able to cooperate with questioning. Patient does have a history of alcohol abuse. Patient was noted to be in severe respiratory distress in the emergency room and needed to be intubated and placed on vent support. Urine drugs screen was positive for opiates. Blood alcohol level 83 Chest x-ray suggests possible aspiration pneumonia. Patient was placed on IV antibiotic coverage. Transfer to the intensive care unit. Patient was followed by multiple consulting physicians throughout the hospitalization.He did receive emergent hemodialysis for acidosis, rhabdomyolysis, hyperkalemia. Throughout the hospitalization patient made slow recovery and was able to be transferred out of the intensive care unit to a stepdown unit renal function was monitored closely. Patient was noted to be dialysis dependent. Had a permacath placed. Patient was treated throughout the hospitalization with electrolytes corrected. Patient on admission had an anoxic encephalopathy with an anoxic brain injury in which the patient did make a recovery the time of discharge was cooperative and oriented to self and place. Patient was treated for acute hypoxic respiratory failure as mentioned did require vent support was able to be extubated when appropriate. Patient was treated for aspiration pneumonia right lower lobe with sepsis with septic shock Patient was treated on admission for severe refractory shock initially required pressor support off the pressors Patient was seen by the mental health service a discussion was had about his alcohol and opiate abuse. Patient indicated that he was by [place] as from the street. He did like to have a buzz in the morning and then he would drink alcohol to calm him down. Patient has been in multiple as a program and was on naltrexone in the past and it did help his recovery. Currently the patient is not on any treatment. In was resistant to participate in AA or NA meetings. Additionally the patient was in [facility] in [facility] in the past for depression and SA and tried Zoloft and Lexapro which patient stated was ineffective. The mental health service indicated that they would try weaning the patient off of Librium do not use Cymbalta as it affects the renal and patient was agreeable to start low dose of Prozac and Lexapro this could be monitored in the outpatient setting industrial safety and health manager did pursue the discharge plan patient's mental status significantly improved and on the was felt to be appropriate to be discharged with the plan the patient would receive outpatient dialysis per nephrology's recommendations. Patient did receive dialysis on October 02. The next dialysis was scheduled at [facility] on Sunday at 9: 30 in the morning. The behavioral health case manager and the patient's family arranged for the patient to receive the outpatient dialysis Impression discharge Present on admission acute hypoxic respiratory failure on vent support multifactorial due to aspiration pneumonia right lower lobe with sepsis with septic shock Present on admission severely hyperkalemic potassium 8.7 Present on admission urine drug screen positive for opiates History of Polysubstance drug abuse Suspect anoxic brain injury Present on admission acute kidney injury anion gap metabolic acidosis due to acute kidney injury with lactic acidosis Active tobacco abuse Possible seizure activity Right lower lobe atelectasis with an aspiration event Severe refractory shock resolved Present on admission Rhabdomyolysis Present on admission Lactic acidosis History of a depressive disorder nonspecified on Lexapro at home Present on admission Hypomagnesemia with elevated potassium hyperkalemic Present on admission acute alcohol intoxication History of chronic alcoholism daily consumption Present on Admission elevated lipase amylase AST ALT suspect acute pancreatitis due to chronic alcoholism Present on admission sepsis likely due to aspiration right lower lobe pneumonia Alcoholic hepatitis history of alcohol abuse dependency Persistent acute hyperkalemia Present on admission and anoxic encephalopathy Anoxic brain injury Oliguric acute kidney injury secondary to ischemic ATN secondary to rhabdomyolysis. No improvement in urine output with IV diuretics. Currently hemodialysis dependent. Pulmonary edema. Resolved. Anemia suspect iron deficiency Hyperphosphatemia secondary to oliguria/renal failure. Hypocalcemia secondary to acute kidney injury as well as rhabdomyolysis. Resolved Leukocytosis persist suspect steroid-induced on Solu-Medrol 40 IV every 12 Iron deficiency anemia Oliguric acute kidney injury secondary to ischemic ATN secondary to rhabdomyolysis. Hemodialysis dependent The above dictated assessment and findings were discussed with dr brito Impression and the plan of care have been dictated as directed. Pavithra Hameed nurse practitioner acting as a scribe for dr brito Patient Condition at Discharge: Critical Plan - Discharge Summary New Discharge Prescriptions: Calcium Acetate [PhosLo] 1,334 mg PO TID-W/MEALS #180 cap Escitalopram Oxalate [Lexapro] 10 mg PO DAILY #30 tablet FLUoxetine HCL [PROzac] 10 mg PO DAILY #30 cap Folic Acid 1 mg OG-TUBE DAILY@1200 #30 tab Labetalol [Trandate] 300 mg PO BID #60 tablet Levofloxacin [Levaquin] 250 mg PO Q24H #7 tab Multivitamins, Thera [Multivitamin] 1 each PO DAILY@1200 #30 tab Naltrexone HCl [Revia] 50 mg PO DAILY #30 tab Nicotine 21Mg/24Hr Patch [Habitrol] 1 patch TRANSDERM DAILY #30 patch Pantoprazole [Protonix] 40 mg PO AC-BRKFST #30 tablet. QUEtiapine [SEROquel] 50 mg PO HS #30 tab Sodium Bicarbonate Tab 1,300 mg PO BID #120 tab Thiamine [Vitamin B-1] 100 mg OG-TUBE DAILY@1200 #30 tab chlordiazePOXIDE HCl [Librium] 10 mg PO BID #60 cap cloNIDine HCL [Catapres] 0.1 mg PO TID #90 tab Discharge Medication List Calcium Acetate [PhosLo] 1,334 mg PO TID-W/MEALS #180 cap 01/30/17 [Rx] Darbepoetin Mike [Aranesp] 40 mcg SQ Q7D syringe 10/02/16 [Rx] Escitalopram Oxalate [Lexapro] 10 mg PO DAILY #30 tablet 10/02/16 [Rx] FLUoxetine HCL [PROzac] 10 mg PO DAILY #30 cap 10/02/16 [Rx] Folic Acid 1 mg OG-TUBE DAILY@1200 #30 tab 10/02/16 [Rx] Labetalol [Trandate] 300 mg PO BID #60 tablet 10/02/16 [Rx] Levofloxacin [Levaquin] 250 mg PO Q24H #7 tab 10/02/16 [Rx] Multivitamins, Thera [Multivitamin] 1 each PO DAILY@1200 #30 tab 10/02/16 [Rx] Naltrexone HCl [Revia] 50 mg PO DAILY #30 tab 10/02/16 [Rx] Nicotine 21Mg/24Hr Patch [Habitrol] 1 patch TRANSDERM DAILY #30 patch 10/02/16 [ Rx] Pantoprazole [Protonix] 40 mg PO AC-BRKFST #30 tablet. 10/02/16 [Rx] QUEtiapine [SEROquel] 50 mg PO HS #30 tab 10/02/16 [Rx] Sodium Bicarbonate Tab 1,300 mg PO BID #120 tab 10/02/16 [Rx] Thiamine [Vitamin B-1] 100 mg OG-TUBE DAILY@1200 #30 tab 10/02/16 [Rx] chlordiazePOXIDE HCl [Librium] 10 mg PO BID #60 cap 10/02/16 [Rx] cloNIDine HCL [Catapres] 0.1 mg PO TID #90 tab 10/02/16 [Rx] Follow up Appointment(s)/Referral(s): Alexandro Brito MD [Primary Care Provider] - 1-2 days Activity/Diet/Wound Care/Special Instructions: [facility], [address] [place] [address] (#[phone]). Pt to begin on 10/04/16 at 9:30 am for his first dialysis at [facility]. Pt will be on a Sunday/Sunday/Sunday rotation. Discharge Disposition: HOME SELF-CARE
[2016-10-02] MEDS: hydrALAZINE HCL 20 MG/ML 1 ML VIAL IVP PRN (12:41)
[2016-10-02] MEDS: THIAMINE 100 MG TAB OG-TUBE SCH (12:42)
[2016-10-02] MEDS: MULTIVITAMINS, THERA 1 EACH TAB PO SCH (12:42)
[2016-10-02] MEDS: FOLIC ACID 1 MG TAB OG-TUBE SCH (12:42)
[2016-10-02] MEDS ORDERED: VANCOMYCIN 1,000 MG in SODIUM CHLORIDE 0.9% 250 ML IVPB ONE (14:00)
== END 2016-10-02 16:00 | disposition home or self-care (01) | DRG 870 ==
LOC: EC 12:40 → 6ICU 16:33 → 4MS4W 09-21 15:39
PROVIDERS: ADMIT Family Medicine; ATTEND Family Medicine
PROC: 5A1955Z Respiratory Ventilation, Greater than 96 Consecutive Hours (ICD-10-PCS; principal; 2016-09-09)
PROC: 03HY32Z Insertion of Monitoring Device into Upper Artery, Percutaneous Approach (ICD-10-PCS; 2016-09-09)
PROC: 0BH18EZ Insertion of Endotracheal Airway into Trachea, Via Natural or Artificial Opening Endoscopic (ICD-10-PCS; 2016-09-09)
PROC: 4A133B1 Monitoring of Arterial Pressure, Peripheral, Percutaneous Approach (ICD-10-PCS; 2016-09-09)
PROC: 4A133J1 Monitoring of Arterial Pulse, Peripheral, Percutaneous Approach (ICD-10-PCS; 2016-09-09)
PROC: 06HN33Z Insertion of Infusion Device into Left Femoral Vein, Percutaneous Approach (ICD-10-PCS; 2016-09-09)
PROC: 06HM33Z Insertion of Infusion Device into Right Femoral Vein, Percutaneous Approach (ICD-10-PCS; 2016-09-09)
PROC: B54BZZA Ultrasonography of Right Lower Extremity Veins, Guidance (ICD-10-PCS; 2016-09-09)
PROC: B54CZZA Ultrasonography of Left Lower Extremity Veins, Guidance (ICD-10-PCS; 2016-09-09)
PROC: 5A1D60Z (ICD-10-PCS; 2016-09-09)
PROC: 06PY33Z Removal of Infusion Device from Lower Vein, Percutaneous Approach (ICD-10-PCS; 2016-09-10)
PROC: 06HC33Z Insertion of Infusion Device into Right Common Iliac Vein, Percutaneous Approach (ICD-10-PCS; 2016-09-10)
PROC: 02HV33Z Insertion of Infusion Device into Superior Vena Cava, Percutaneous Approach (ICD-10-PCS; 2016-09-14)
PROC: B548ZZA Ultrasonography of Superior Vena Cava, Guidance (ICD-10-PCS; 2016-09-14)
DX: A41.9 Sepsis, unspecified organism (principal); J96.01 Acute respiratory failure with hypoxia; N17.0 Acute kidney failure with tubular necrosis; R65.21 Severe sepsis with septic shock; K72.00 Acute and subacute hepatic failure without coma; J69.0 Pneumonitis due to inhalation of food and vomit; G92 Toxic encephalopathy; F10.231 Alcohol dependence with withdrawal delirium; K85.90 Acute pancreatitis without necrosis or infection, unspecified; E87.4 Mixed disorder of acid-base balance; M62.82 Rhabdomyolysis; E87.1 Hypo-osmolality and hyponatremia; J98.11 Atelectasis; G93.1 Anoxic brain damage, not elsewhere classified; E87.5 Hyperkalemia; E83.51 Hypocalcemia; I11.0 Hypertensive heart disease with heart failure; I50.9 Heart failure, unspecified; E83.39 Other disorders of phosphorus metabolism; G25.3 Myoclonus; E83.42 Hypomagnesemia; K70.10 Alcoholic hepatitis without ascites; K72.90 Hepatic failure, unspecified without coma; F41.9 Anxiety disorder, unspecified; D50.9 Iron deficiency anemia, unspecified; F17.200 Nicotine dependence, unspecified, uncomplicated; F19.10 Other psychoactive substance abuse, uncomplicated; F29 Unspecified psychosis not due to a substance or known physiological condition; F32.9 Major depressive disorder, single episode, unspecified; Y90.4 Blood alcohol level of 80-99 mg/100 ml; Z65.3 Problems related to other legal circumstances; Z91.14 Patient's other noncompliance with medication regimen; Z99.2 Dependence on renal dialysis; Z79.899 Other long term (current) drug therapy
CPT/HCPCS: 31500; 36415; 36558; 36600; 51701; 70450; 71010; 74000; 76937; 77001; 80048; 80053; 80074; 80177; 80202; 80306; 80320; 81003; 82140; 82150; 82330; 82550; 82553; 82728; 82805; 83540; 83550; 83605; 83690; 83735; 83930; 84100; 84132; 84484; 84600; 85025; 85027; 85610; 85730; 87040; 90935; 93005; 93880; 93965; 93970; 94002; 94003; 94640; 94660; 94760; 95819; 96365; 96366; 96367; 96375; 99291

== ENCOUNTER 2016-11-06 15:24 | Emergency (ER) | payer OTHER ==
[2016-11-06 15:38] VITALS: BP 179/95; PULSE 123; RESP 18; TEMP 98.5
--- NOTE | 2016-11-06 16:40 | ED ---
General Adult HPI - General Chief complaint: Extremity Injury, Lower Stated complaint: Leg Pain Time Seen by Provider: 11/06/16 16:25 Source: patient, RN notes reviewed Mode of arrival: ambulatory Limitations: no limitations - History of Present Illness Initial comments: This is a 40yo male who presents with chronic right foot pain after being hospitalized approximately one month ago. Patient states he has had right foot pain that radiates into his right calf ever since then. Patient states he has noticed the pain more recently because he has been walking on the right foot more often. Patient denies any known injury to the foot. Patient was concerned for fracture as no one evaluated his foot when he was in the hospital approximately one month ago. Patient states he notices some tingling to the top of his right foot but denies any numbness or weakness. Patient denies any swelling or erythema. Patient is able to ambulate. Patient states his primary care doctor put him on Lyrica and gabapentin but this has not helped the pain. Patient denies any recent fever, chills, shortness breath, chest pain, abdominal pain, nausea/vomiting/diarrhea, back pain, hematuria, headache, or visual changes, or any other complaints. - Related Data Previous Rx's Medication Instructions Recorded Calcium Acetate [PhosLo] 1,334 mg PO TID-W/MEALS #180 cap 10/02/16 Darbepoetin Mike [Aranesp] 40 mcg SQ Q7D syringe 10/02/16 Escitalopram Oxalate [Lexapro] 10 mg PO DAILY #30 tablet 10/02/16 FLUoxetine HCL [PROzac] 10 mg PO DAILY #30 cap 10/02/16 Folic Acid 1 mg OG-TUBE DAILY@1200 #30 tab 10/02/16 Labetalol [Trandate] 300 mg PO BID #60 tablet 10/02/16 Levofloxacin [Levaquin] 250 mg PO Q24H #7 tab 10/02/16 Multivitamins, Thera [Multivitamin] 1 each PO DAILY@1200 #30 tab 10/02/16 Naltrexone HCl [Revia] 50 mg PO DAILY #30 tab 10/02/16 Nicotine 21Mg/24Hr Patch [Habitrol] 1 patch TRANSDERM DAILY #30 patch 10/02/16 Pantoprazole [Protonix] 40 mg PO MEERA-CHHAYAKELLA #30 tablet. 01/30/17 QUEtiapine [SEROquel] 50 mg PO HS #30 tab 10/02/16 Sodium Bicarbonate Tab 1,300 mg PO BID #120 tab 10/02/16 Thiamine [Vitamin B-1] 100 mg OG-TUBE DAILY@1200 #30 tab 10/02/16 amLODIPine [Norvasc] 5 mg PO DAILY #30 tab 10/02/16 chlordiazePOXIDE HCl [Librium] 10 mg PO BID #60 cap 10/02/16 cloNIDine HCL [Catapres] 0.1 mg PO TID #90 tab 10/02/16 Ibuprofen [Motrin] 400 mg PO Q6HR 7 Days 11/06/16 Allergies Allergy/AdvReac Type Severity Reaction Status Date / Time seasonal Allergy Rash/Hives Uncoded 11/06/16 15:38 Review of Systems ROS Statement: Those systems with pertinent positive or pertinent negative responses have been documented in the HPI. ROS Other: All systems not noted in ROS Statement are negative. Past Medical History Past Medical History: No Reported History Additional Past Medical History / Comment(s): alcoholic History of Any Multi-Drug Resistant Organisms: None Reported Additional Past Surgical History / Comment(s): Rhinoplasty (2003) Past Anesthesia/Blood Transfusion Reactions: No Reported Reaction Past Psychological History: Depression Smoking Status: Current every day smoker Past Alcohol Use History: Daily Additional Past Alcohol Use History / Comment(s): 15-20 24oz beers daily Past Drug Use History: Cocaine, Opiates, Prescription Drug Abuse - Past Family History Father Family Medical History: Diabetes Mellitus Mother Additional Family Medical History / Comment(s): ETOH use General Exam - General Exam Comments Initial Comments: General: The patient is awake and alert, in no distress, and does not appear acutely ill. Neck: The neck is supple, there is no tenderness or JVD. Cardiovascular: There is a regular rate and rhythm. No murmur, rub or gallop is appreciated. Respiratory: Lungs are clear to auscultation, respirations are non-labored, breath sounds are equal. No wheezes, stridor, rales, or rhonchi. Musculoskeletal: There is tenderness to palpation over the dorsal aspect of the right foot especially along the medial aspect of the right foot. There is no swelling, ecchymosis or erythema. Patient has mild tenderness to the medial aspect of the right ankle. Strength is 5/5, full range of motion, Sensation intact. Posterior tibial and dorsalis pedis pulses are 2+ bilaterally. Capillary refill is normal at less than 2 seconds. Neurological: A&O x 3. CN II-XII intact, There are no obvious motor or sensory deficits. Coordination appears grossly intact. Speech is normal. Skin: Skin is warm and dry and no rashes or lesions are noted. Psychiatric: Normal mood and affect. Limitations: no limitations Course Vital Signs 11/06/16 15:34 Temperature 98.5 F Pulse Rate 123 H Respiratory 18 Rate Blood Pressure 179/95 O2 Sat by Pulse 99 Oximetry Medical Decision Making - Medical Decision Making Is a 40-year-old male presents with right foot pain radiates to the right calf times one month. On physical exam there is tenderness to palpation over the dorsal aspect of the right foot especially along the medial aspect of the right foot. There is no swelling, ecchymosis or erythema. Patient has mild tenderness to the medial aspect of the right ankle. Strength is 5/5, full range of motion, Sensation intact. Posterior tibial and dorsalis pedis pulses are 2+ bilaterally. Capillary refill is normal at less than 2 seconds. X-rays of the right foot and right ankle were done and reviewed showing: Negative right foot exam. Negative right ankle exam. Reports read by Dr. Gooden. I offered the patient an ultrasound of the right lower extremity to rule out blood clot as a cause for his pain but patient refused. Patient was requesting pain medication. I discussed the patient will receive a prescription for Motrin and that he should continue his gabapentin and Lyrica. I discussed close follow-up with the patient's primary care physician. I discussed return parameters. I discussed that patient should return to the [facility] for any worsening symptoms or for any further concerns. Patient and were receptive to this plan and patient will be discharged home. Disposition Clinical Impression: Chronic foot pain Disposition: HOME SELF-CARE Condition: Good Instructions: Foot Sprain (ED) Additional Instructions: Please use medication as discussed. Please follow-up with family doctor in the next 2 days of symptoms have not improved. Please return to emergency room if the symptoms increase or worsen or for any other concerns. Prescriptions: Ibuprofen [Motrin] 400 mg PO Q6HR 7 Days Referrals: Alexandro Sanabria MD [Primary Care Provider] - 1-2 days Time of Disposition: 17:38
--- NOTE | 2016-11-06 17:14 | XR ---
EXAMINATION TYPE: XR foot complete RT DATE OF EXAM: 11/06/2016 5:02 PM COMPARISON: NONE HISTORY: Foot pain TECHNIQUE: 3 views FINDINGS: I see no fracture nor dislocation. Metatarsals are intact. There are no erosions. IMPRESSION: Negative right foot exam.
--- NOTE | 2016-11-06 17:17 | XR ---
EXAMINATION TYPE: XR ankle complete RT DATE OF EXAM: 11/06/2016 5:02 PM COMPARISON: NONE HISTORY: Pain TECHNIQUE: 3 views FINDINGS: Ankle mortise is anatomic. I see no fracture nor dislocation. Joint spaces are normal. IMPRESSION: Negative right ankle exam.
== END 2016-11-06 17:42 | disposition home or self-care (01) ==
LOC: EC 15:24
DX: G89.29 Other chronic pain (principal); M79.671 Pain in right foot; Z79.899 Other long term (current) drug therapy; F32.9 Major depressive disorder, single episode, unspecified; F17.200 Nicotine dependence, unspecified, uncomplicated; F11.20 Opioid dependence, uncomplicated
CPT/HCPCS: 99283

== ENCOUNTER → 2016-12-13 | Outpatient (CLI) | payer OTHER ==
--- NOTE | 2016-12-13 07:57 | MR ---
EXAMINATION TYPE: MR lumbar spine wo con DATE OF EXAM: 12/13/2016 7:11 AM COMPARISON: NONE HISTORY: Back pain TECHNIQUE: Multiplanar, multisequence images of the lumbar spine were acquired. L1-L2: Normal disc appearance without desiccation. No herniation, protrusion or disc bulging. No ca nal stenosis is present. Foramina are patent bilaterally. L2-L3: Normal disc appearance without desiccation. No herniation, protrusion or disc bulging. No ca nal stenosis is present. Foramina are patent bilaterally. L3-L4: Normal disc appearance without desiccation. No herniation, protrusion or disc bulging. No ca nal stenosis is present. Foramina are patent bilaterally. L4-L5: Normal disc appearance without desiccation. No herniation, protrusion or disc bulging. No ca nal stenosis is present. Foramina are patent bilaterally. L5-S1: Normal disc appearance without desiccation. There is mild posterocentral disc bulge. No eviden ce for disc herniation or protrusion. Minimal effacement ventral thecal sac without evidence for late ral recess stenosis or central stenosis. Lumbar segments are intact. No paraspinal masses are identified. Conus medullaris has a normal appe arance. Incidental partially imaged disc bulging at T11-12. IMPRESSION: Mild posterocentral disc bulge at L5-S1. Incidental partially imaged disc bulging at T11-12. Otherwise unremarkable examination.
== END | disposition home or self-care (01) ==
LOC: RADMRIMAIN 06:36
PROVIDERS: ATTEND Psychiatry & Neurology Neurology
DX: M51.16 Intervertebral disc disorders with radiculopathy, lumbar region (principal)
CPT/HCPCS: 72148; 76770

== ENCOUNTER → 2016-12-13 | Outpatient (CLI) | payer MEDICARE, OTHER ==
--- NOTE | 2016-12-13 09:46 | US ---
EXAMINATION TYPE: US kidneys/renal and bladder DATE OF EXAM: 12/13/2016 8:58 AM COMPARISON: MRI lumbar spine earlier today CLINICAL HISTORY: N17.9 Acute Kidney Injury. DEBI EXAM MEASUREMENTS: Right Kidney: 10.2 x 5.6 x 4.9 cm Left Kidney: 11.2 x 6.1 x 5.2 cm Right Kidney: 1.6cm irregular cystic area mid pole, inferior pole limited by overlying bowel gas Left Kidney: visualized portions wnl, limited by rib shadowing and overlying bowel gas Bladder: not fully distended, appears wnl as seen Bilateral Jets seen: no There is no evidence for hydronephrosis at this point in time. No nephrolithiasis is seen. Centrally in the right kidney there is a lobulated 1.6 cm anechoic area with possible vascularity, correspondi ng lesion is not clearly seen on MRI. The urinary bladder is anechoic. Bilateral ureteral jets are not seen. Urinary bladder is not greatly distended but there is no intraluminal mass or wall thickening. IMPRESSION: Suboptimal study there is 1.6 cm vague hypoechoic area centrally in right kidney favor benign etiolog y but cannot exclude small solid lesion. Further investigation with multi phase contrast-enhanced CT/ MRI is advised. No hydronephrosis is evident bilaterally.
== END | disposition home or self-care (01) ==
LOC: RADUSWWP 08:56
PROVIDERS: ATTEND Internal Medicine
DX: N17.9 Acute kidney failure, unspecified (principal)
CPT/HCPCS: 76770

== ENCOUNTER → 2017-01-10 | Outpatient (CLI) | payer OTHER ==
[2017-01-10 11:30] LABS: Appearance,Urine Clear (Clear); Bilirubin,Urine Negative (Negative); Glucose,Urine (UA) Negative (Negative); Ketones,Urine Negative (Negative); Leukocyte Esterase,Urine Negative (Negative); Nitrite,Urine Negative (Negative); Protein,Urine Negative (Negative); Specific Gravity,Urine 1.011 (1.001-1.035); UA Billing (MACRO vs. MICRO) CHEM; Urobilinogen,Urine <2.0 mg/dL (<2.0)
[2017-01-10 11:31] LABS: Aty Lym Flag Slight; CH 31.5; CHCM 35.2; HCT 40.2 % (39.0-53.0); HDW 2.55; HGB 13.9 gm/dL (13.0-17.5); MCHC 34.5 g/dL (31.0-37.0); Mean Platelet Volume 6.5; RBC 4.46 m/uL (4.30-5.90); RDW 13.7 % (11.5-15.5); WBC 8.8 k/uL (3.8-10.6)
[2017-01-10 11:52] LABS: Anion Gap 10 mmol/L; Blood Urea Nitrogen 18 mg/dL (9-20); Calcium 10.2 mg/dL (8.4-10.2); Carbon Dioxide 26 mmol/L (22-30); Chloride 106 mmol/L (98-107); Glucose 90 mg/dL (74-99); Iron 141 ug/dL (49-181); Non-African American GFR(MDRD) >60 (>60 ml/min/1.73 sqM); Phosphorous 5.2 mg/dL (2.5-4.5); Potassium 4.7 mmol/L (3.5-5.1); Sodium 142 mmol/L (137-145); Uric Acid 6.6 mg/dL (3.5-8.5)
[2017-01-10 12:02] LABS: % Iron Saturation 38.2 % (20-50); Total Iron Binding Capacity 369 ug/dL (261-462)
[2017-01-10 12:05] LABS: Add Differential Manual Differential
[2017-01-10 12:07] LABS: Manual Review Performed; Nucleated Red Blood Cells 0 /100 WBC (0-0); Total Cells Counted 100
== END | disposition home or self-care (01) ==
LOC: LABWHC1 11:02
PROVIDERS: ATTEND Nurse Practitioner Family
DX: N17.9 Acute kidney failure, unspecified (principal); D64.9 Anemia, unspecified; N39.0 Urinary tract infection, site not specified; E21.3 Hyperparathyroidism, unspecified; E55.9 Vitamin D deficiency, unspecified; M10.9 Gout, unspecified
CPT/HCPCS: 36415; 80048; 81003; 82306; 82728; 83540; 83550; 83735; 83970; 84100; 84550; 85025; 85027

== ENCOUNTER 2017-01-18 10:09 | Emergency (ER) | payer OTHER ==
[2017-01-18] MEDS ORDERED: KETOROLAC 60 MG/2 ML VIAL IM STA (11:22)
[2017-01-18 11:28] VITALS: BP 142/91; PULSE 97; RESP 16; TEMP 98.6
--- NOTE | 2017-01-18 11:35 | XR ---
EXAMINATION TYPE: XR ankle complete 3 views RT, XR foot complete 3 views RT DATE OF EXAM: 01/18/2017 11:16 AM COMPARISON: 11/06/2016 HISTORY: 41-year-old male with pain. FINDINGS: Ankle: Ankle mortise is congruent with preservation of the distal tibiofibular overlap. Talar dome is intact . There may be mild lateral and anterior soft tissue swelling. Achilles tendon is poorly delineated. Foot: There is a nondisplaced transverse fracture through the base of the fifth metatarsal. Fracture extend s through the middle third to medial third aspect of the fifth TMT joint. Adjacent soft tissue swelli ng. There is an os peroneum. No other acute fracture or dislocation is seen. IMPRESSION: 1. Ankle: No acute osseous abnormality seen. 2. Foot: Nondisplaced fracture at the base of the fifth metatarsal. This should be followed to ensure appropriate healing and no interval displacement.
--- NOTE | 2017-01-18 11:51 | ED ---
General Adult HPI - General Chief complaint: Extremity Injury, Lower Stated complaint: RT FOOT INJURY Time Seen by Provider: 01/18/17 10:54 Source: patient, RN notes reviewed Mode of arrival: wheelchair Limitations: no limitations - History of Present Illness Initial comments: Patient 41-year-old male who presents emergency room today with a chief complaint of injury to the right foot and ankle that occurred just prior to arrival. He does admit that he was jumping up trying to kill the wasp when he came down and landed rolling the right foot and ankle. Does admit to increased pain over the lateral aspect. He denies any other injuries or complaints. Patient denies any recent fever, chills, shortness of breath, chest pain, back pain, abdominal pain, nausea or vomiting, dysuria or hematuria, constipation or diarrhea, headaches or visual changes, or any other complaints. - Related Data Home Medications Medication Instructions Recorded Confirmed Amitriptyline HCl [Elavil] 10 mg PO HS 01/18/17 01/18/17 Gabapentin [Neurontin] 800 mg PO TID 01/18/17 01/18/17 Previous Rx's Medication Instructions Recorded amLODIPine [Norvasc] 5 mg PO DAILY #30 tab 10/02/16 Hydrocodone/Acetaminophen [[place] 1 each PO Q6HR PRN #20 tab 01/18/17 5-325] Allergies Allergy/AdvReac Type Severity Reaction Status Date / Time seasonal Allergy Rash/Hives Uncoded 11/06/16 15:38 Review of Systems ROS Statement: Those systems with pertinent positive or pertinent negative responses have been documented in the HPI. ROS Other: All systems not noted in ROS Statement are negative. Past Medical History Past Medical History: No Reported History Additional Past Medical History / Comment(s): alcoholic, right leg nerve damage History of Any Multi-Drug Resistant Organisms: None Reported Additional Past Surgical History / Comment(s): Rhinoplasty (2003) Past Anesthesia/Blood Transfusion Reactions: No Reported Reaction Past Psychological History: Depression Smoking Status: Current every day smoker Past Alcohol Use History: Daily Additional Past Alcohol Use History / Comment(s): 15-20 24oz beers daily Past Drug Use History: Cocaine, Opiates, Prescription Drug Abuse - Past Family History Father Family Medical History: Diabetes Mellitus Mother Additional Family Medical History / Comment(s): ETOH use General Exam - General Exam Comments Initial Comments: General: The patient is awake and alert, in no distress, and does not appear acutely ill. Neck: The neck is supple, there is no tenderness or JVD. Cardiovascular: There is a regular rate and rhythm. No murmur, rub or gallop is appreciated. Respiratory: Lungs are clear to auscultation, respirations are non-labored, breath sounds are equal. No wheezes, stridor, rales, or rhonchi. Musculoskeletal: Patient does have moderate swelling over the distal right foot. Locally tender over the fourth and fifth proximal metatarsals. Mild tenderness over the lateral malleolus. Sensations are intact with pulses equal bilaterally 2+. Neurological: A&O x 3. CN II-XII intact, There are no obvious motor or sensory deficits. Coordination appears grossly intact. Speech is normal. Skin: Skin is warm and dry and no rashes or lesions are noted. Psychiatric: Normal mood and affect. Limitations: no limitations Course Vital Signs 01/18/17 01/18/17 10:13 11:26 Temperature 99 F 98.6 F Pulse Rate 100 97 Respiratory 20 16 Rate Blood Pressure 168/92 142/91 O2 Sat by Pulse 100 96 Oximetry Medical Decision Making - Medical Decision Making Patient x-rays reviewed and does show a nondisplaced fracture of the fifth metatarsal. No other acute abnormalities. Patient has been splinted in a short leg posterior OCL splint. Neurovascular rechecked and intact. Patient will be given pain medication along with crutches to go home with. Advised to use nonweightbearing. Advised that he cannot drive that his right foot. Advised that he needs follow-up with orthopedics over the next 2 days. Advised ice elevate the affected area. Advised return for any other concerns. Patient has requested to see Dr. Jacobs. Disposition Clinical Impression: Foot fracture Disposition: HOME SELF-CARE Condition: Good Instructions: Foot Fracture in Adults (ED) Additional Instructions: Please continue to ice elevate and leave splint in place until follow-up with orthopedics. Please return to emergency room symptoms increase or worsen or for any other concerns. Prescriptions: Hydrocodone/Acetaminophen [[place] 5-325] 1 each PO Q6HR PRN #20 tab PRN Reason: Pain Referrals: Alexandro Sanabria MD [Primary Care Provider] - 1-2 days Landon Jacobs MD [STAFF PHYSICIAN] - 1-2 days Time of Disposition: 11:49
== END 2017-01-18 12:03 | disposition home or self-care (01) ==
LOC: EC 10:09
DX: S92.354A Nondisplaced fracture of fifth metatarsal bone, right foot, initial encounter for closed fracture (principal); F32.9 Major depressive disorder, single episode, unspecified; F17.200 Nicotine dependence, unspecified, uncomplicated; Z79.899 Other long term (current) drug therapy; Z91.048 Other nonmedicinal substance allergy status; X50.1XXA Overexertion from prolonged static or awkward postures, initial encounter; Y93.89 Activity, other specified
CPT/HCPCS: 73610; 73630; 99283; 96372; 29515; J1885

== ENCOUNTER → 2017-03-13 | Outpatient (CLI) | payer OTHER ==
[2017-03-13 11:14] VITALS: BP 171/115; PULSE 114; RESP 16; TEMP 98.5
--- NOTE | 2017-03-13 11:48 | P.HPIM ---
History of Present Illness H&P Date: 03/13/17 Chief Complaint: low back and right leg pain This is a 41-year-old patient referred by Dr. Sanchez for chronic pain in low back and RLE with burning/numbness/tingling. Patient has been taking medications from primary care physician including occasional [place] medications with some relief. Patient denies adverse drug effects from medications. Patient also denies new-onset weakness, bowel/bladder incontinence, or any other signs or symptoms of cauda equina syndrome. There are no signs of acute intoxication, and no indications of medication diversion or overuse. Patient notes that pain worsens with sitting and walking, and improves with ice , lying down, and medication. Patient has used several types of medications for pain, including NSAIDS, OPIOIDS ([place]), and benzos. Patient has a strong history of alcohol abuse and has also abused narcotics and cocaine per EMR. Patient HAS NOT had surgery. Patient HAS NOT had injections previously. Patient HAS NOT had physical therapy recently. In addition to above, 13-point review of systems is also negative for chest pain , shortness of breath, changes in vision, changes in hearing, new onset weakness , abdominal pain, diarrhea, extreme fatigue, malaise, fever, skin changes, homicidal or suicidal ideation, or bowel or bladder incontinence. Vital Signs: Reviewed in EMR Gen: WDWN, AAOx3, NAD HEENT: NCAT, EOMI, hearing grossly normal Pulm: resp unlabored Abd: soft, NT, ND Neck: supple, trachea midline ROM in flexion lumbar spine: reduced ROM in extension lumbar spine: reduced Lumbar paravertebral tenderness: + Facet loading: neg SI joint tenderness: + R side Jasper's test: + R side Straight leg raise: +RLE at 10 degrees Lower extremity: decreased sensation to pinprick RLE secondary to pain Neuro: CN II-XII grossly intact Past Medical History Past Medical History: No Reported History Additional Past Medical History / Comment(s): alcoholic, right leg nerve damage History of Any Multi-Drug Resistant Organisms: None Reported Additional Past Surgical History / Comment(s): Rhinoplasty (2003) Past Anesthesia/Blood Transfusion Reactions: No Reported Reaction Smoking Status: Current every day smoker - Past Family History Father Family Medical History: Diabetes Mellitus Mother Additional Family Medical History / Comment(s): ETOH use Medications and Allergies Home Medications Medication Instructions Recorded Confirmed Type Gabapentin [Neurontin] 800 mg PO QID 01/18/17 03/13/17 History Allergies Allergy/AdvReac Type Severity Reaction Status Date / Time seasonal Allergy Rash/Hives Uncoded 11/06/16 15:38 Physical Exam Vitals: Vital Signs Temp Pulse Resp BP Pulse Ox 03/13/17 11:06 98.5 F 114 H 16 171/115 98 Intake and Output 03/12/17 03/13/17 03/13/17 22:59 06:59 14:59 Other: Weight 85.275 kg Patient Weight 03/14/17 06:59 Weight 85.275 kg Results Comments: MRI lumbar spine dated 12/13/2016 is negative except for trace mild posterior central disc bulge at the L5-S1 level with minimal effacement of the ventral thecal sac without evidence for lateral recess stenosis or central canal stenosis. There is an incidental partially imaged disc bulge at T11-T12. Assessment and Plan (1) Lumbar disc herniation Status: Chronic (2) Chronic pain syndrome Status: Chronic Plan: 1. Explanation: Opioid and psychological risk scores were reviewed. Diagnoses , prognoses, and multiple treatment options including but not limited to physical therapy, interventional therapies, adjuvant medical therapies, narcotic medication therapies, and surgery were discussed with the patient and all questions were answered to the patient's satisfaction. 2. Opioid agreement: no opioids given today, patient has long history of alcohol use 3. Counseling: The patient was counseled extensively on SMOKING CESSATION, BODY MASS INDEX, EXERCISE. Specifically, the patient was instructed regarding the importance of smoking cessation, weight control, and exercise in the context of both chronic pain and overall health. 4. Procedures: LESI series, focus on L5-S1 5. Consultations: none 6. Investigations: none 7. Medications: none 8. Disposition: LESI series; if little relief, consider referral to spine surgeon PQRS measures: 1-Patient's medications are documented in the chart. 2-Tobacco use is positive, counseling given 3-Patient has not had a pneumococcal vaccine. 4-Advanced care planning discussed, patient unable to give. 5-Opioid contract NOT signed with the patient. 6-Pain positive, follow-up visit or procedure scheduled 7-Patient's blood pressure measured and documented, and patient will follow up with the primary care due to hypertension. 8-Patient's weight was measured, and body mass index ABOVE the normal limits, and counseling was done. Patient instructed to follow up with PCP. 9-Patient WAS NOT identified as an unhealthy alcohol user. Time with Patient: Greater than 30
== END | disposition home or self-care (01) ==
LOC: PNWHC3 10:52
PROVIDERS: ATTEND Anesthesiology
DX: M51.26 Other intervertebral disc displacement, lumbar region (principal); G89.4 Chronic pain syndrome
CPT/HCPCS: 99211

== ENCOUNTER 2017-04-11 08:02 | Day surgery (SDC) | payer OTHER ==
[2017-04-03 15:02] VITALS: BMI 25.0
[2017-04-11 08:46] VITALS: TEMP 98.1
[2017-04-11] MEDS ORDERED: LACTATED RINGERS 1,000 ML IV ONE (08:46)
[2017-04-11] MEDS ORDERED: LIDOCAINE 1% 20 ML VIAL (10MG/ML) FOR IV START INTRADERMA ONE (08:46)
[2017-04-11] MEDS ORDERED: LACTATED RINGERS 1,000 ML IV SCH (09:15)
--- NOTE | 2017-04-11 09:40 | P.PCN ---
Date of Procedure: 04/11/17 Preoperative Diagnosis: Postoperative Diagnosis: Procedure(s) Performed: Implants: Surgeon: Dixon Mcgowan Pathology: none sent Condition: stable Disposition: PACU Indications for Procedure: Operative Findings: Description of Procedure: PREOPERATIVE DIAGNOSIS: 1-Lumbar radiculitis. POSTOPERATIVE DIAGNOSIS: 1-Lumbar radiculitis. PROCEDURE 1. Lumbar epidural steroid injection under fluoroscopic guidance at the L5-S1 level. 2. Lumbar epidurogram. ANESTHESIA: Local with 1% lidocaine; IV sedation with Versed. EBL: Minimal PROCEDURE INDICATION: The patient with low back pain and radiculitis symptoms unresponsive to conservative treatment, presents for LESI #1 today. Fluoroscopy was used to optimize visualization of the needle placement and to maximize safety. No use of blood thinners. PROCEDURE DESCRIPTION / TECHNIQUE: The patient was seen and identified in the preoperative area. Risks, benefits, complications, and alternatives were discussed with the patient, including but not limited to bleeding, infection, nerve damage, allergic reactions to medications, and incomplete pain relief. The patient agreed to proceed with the procedure and signed the consent after all questions were answered. IV was started, and vital signs were stable. Patient was taken to the OR and time out was completed to confirm patient position, procedure, laterality of pain, and allergies. The patient was placed in the prone position on procedure table and a pillow was placed under the abdomen to reduce lumbar lordosis. The lumbosacral area was prepped and draped in the usual sterile fashion. Critical pause was taken. Vital signs were closely monitored during the procedure. Conscious sedation was used during the procedure to decrease patients anxiety. Using anterior-posterior fluoroscopy, the L5-S1 interlaminar space was identified and the skin over this site was marked and then infiltrated with 1% lidocaine subcutaneously. Subsequently, a 20-gauge 3.5-inch Tuohy epidural needle was inserted and advanced toward the epidural space using the Loss of resistance technique and guided by AP and lateral fluoroscopy. The correct needle position in the epidural space was verified with the injection of 2 mL of the water soluble contrast dye Omnipaque 300 contrast and observing an excellent epidurogram with the epidural spread of the dye, after negative aspiration for blood and CSF and in the absence of paresthesias. Again after negative aspiration, a 8 ml mixture containing 20 mg of PF Decadron and 4 ml of preservative free Normal Saline, and 2 ml of preservative free lidocaine 1% solution was injected and a washout of epidurogram was seen. Needle was withdrawn intact, skin was cleansed, and bandages were applied. COMPLICATIONS: None COMMENTS: DISPOSITION / PLANS: The patient was placed in a supine position and transferred to the recovery area in a stable condition for observation. There was no evidence of lower extremity motor or sensory deficit after the procedure. Patient was discharged from the recovery room after meeting discharge criteria. Home discharge instructions were given to the patient by the staff. The patient was reexamined prior to discharge and there were no issues. The patient will schedule a repeat procedure in 4-6 weeks.
[2017-04-11 10:05] VITALS: BP 136/80; PULSE 98; RESP 18
--- NOTE | 2017-04-11 10:52 | FL ---
EXAMINATION TYPE: FL guided pain mgmt statistic DATE OF EXAM: 04/11/2017 FLUOROSCOPY Fluoroscopy time of 7 seconds was used during lumbar epidural steroid injection. 3 image/s document/ s the procedure.
--- NOTE | 2017-04-13 17:40 | CDI ---
Physicians Documentation Request Patient: Artur Reddy EPI: [id number] Account: [id number] Payer: [facility] Facility: [facility] Location: - Admit Date: 04/11/2017 8:02:00 AM Query Send By: Abigail Jackson Phone #: Ext. Communication Date: 04/13/2017 5:35:00 PM Clarification Outpatient By submitting this query, we are merely seeking further clarification of documentation to accurately reflect all conditions that you are monitoring, evaluating, treating or that extend the hospitalization or utilize additional resources of care. Please utilize your independent clinical judgment when addressing the question(s) below. Dear Doctor Dixon Mcgowan, The patients Clinical Indicators include: See below Per the procedure note, local and IV sedation were obtained using 1% lidocaine and intravenous Versed. Per new CMS (Centers for Medicare and Medicaid Services) guidelines there is a change by which the work of moderate/conscious sedation will be reimbursed separately. Further clarification of the documentation of IV sedation is needed for proper reporting purposes. Please clarify the type of sedation this patient received during the cardiac catheterization. Moderate/conscious sedation MAC (unconscious sedation) General Anesthesia Other (please specify) Please document your findings in an addendum to the Procedure Note. If you have any questions about this query, you may contact Technical Consultant, Ashley Posadas at between 8am and 6pm Sunday-Sunday PLEASE DOCUMENT ANY ADDITIONAL DIAGNOSES AND/OR SPECIFICITY IN THE PROGRESS NOTES AND/OR DISCHARGE SUMMARY. Agreed & documented Unable to determine/unknown Disagree with the above request Need to discuss MTDD
== END 2017-04-11 10:33 | disposition home or self-care (01) ==
LOC: ORPAIN 08:02
PROVIDERS: ATTEND Anesthesiology
DX: M54.17 Radiculopathy, lumbosacral region (principal); Z79.899 Other long term (current) drug therapy; G89.4 Chronic pain syndrome; Z72.0 Tobacco use
CPT/HCPCS: 62323; 99152; J2250; J1100; Q9965

== ENCOUNTER 2017-04-29 00:08 | Emergency (ER) | payer OTHER ==
[2017-04-29] MEDS ORDERED: SODIUM CHLORIDE 0.9% 1,000 ML with MVI, ADULT NO.4 WITH VIT K 10 ML, THIAMINE 100 MG, F... IV ONE ×4 (00:15)
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
[2017-04-29 00:49] LABS: Basophils # (A) 0.1 k/uL (0-0.2); Basophils % (A) 1 %; CH 34.3; Eosinophils # (A) 0.3 k/uL (0-0.7); Eosinophils % (A) 4 %; HCT 42.4 % (39.0-53.0); HDW 2.49; HGB 14.2 gm/dL (13.0-17.5); Luc # (Auto) 0.26; Luc % (Auto) 3; Lymphocytes # (A) 3.1 k/uL (1.0-4.8); Lymphocytes % (A) 41 %; MCH 33.1 pg (25.0-35.0); MCHC 33.6 g/dL (31.0-37.0); MCV 98.4 fL (80.0-100.0); Mean Platelet Volume 7.1; Monocytes # (A) 0.5 k/uL (0-1.0); Monocytes % (A) 7 %; Neutrophils # (A) 3.3 k/uL (1.3-7.7); Neutrophils % (A) 44 %; RBC 4.31 m/uL (4.30-5.90); RDW 14.4 % (11.5-15.5); WBC 7.6 k/uL (3.8-10.6); WBC (Perox) 7.42
[2017-04-29 00:58] LABS: ALT 42 U/L (21-72); AST 31 U/L (17-59); Alkaline Phosphatase 102 U/L (38-126); Anion Gap 13 mmol/L; Blood Urea Nitrogen 14 mg/dL (9-20); Calcium 9.9 mg/dL (8.4-10.2); Carbon Dioxide 20 mmol/L (22-30); Chloride 112 mmol/L (98-107); Glucose 106 mg/dL (74-99); Non-African American GFR(MDRD) >60 (>60 ml/min/1.73 sqM); Sodium 145 mmol/L (137-145); Total Bilirubin 0.2 mg/dL (0.2-1.3); Total Protein 7.2 g/dL (6.3-8.2)
--- NOTE | 2017-04-29 01:38 | CT ---
EXAM: CT Head Without Intravenous Contrast CLINICAL HISTORY: Reason: Pain TECHNIQUE: Axial computed tomography images of the head/brain without intravenous contrast. CTDI is 57.4 mGy and DLP is 1047.1 mGy-cm. This CT exam was performed using one or more of the following dose reduction techniques: automated exposure control, adjustment of the mA and/or kV according to patient size, and/or use of iterative reconstruction technique. Coronal and sagittal reformatted images were created and reviewed. COMPARISON: CT 09/15/16 FINDINGS: Brain: Unremarkable. No hemorrhage. No significant white matter disease. No edema. Ventricles: Unremarkable. No ventriculomegaly. Bones/joints: Bilateral nasal fractures including fractures of the nasal process of the maxilla. Soft tissues: Unremarkable. Sinuses: Mild mucosal thickening of the ethmoid air cells. Mastoid air cells: Unremarkable as visualized. No mastoid effusion. IMPRESSION: No acute intracranial findings. Nasal fractures. EXAM: CT Cervical Spine Without Intravenous Contrast CLINICAL HISTORY: Reason: Pain TECHNIQUE: Axial computed tomography images of the cervical spine without intravenous contrast. CTDI is 20.2 mGy and DLP is 363.5 mGy-cm. This CT exam was performed using one or more of the following dose reduction techniques: automated exposure control, adjustment of the mA and/or kV according to patient size, and/or use of iterative reconstruction technique. Coronal and sagittal reformatted images were created and reviewed. COMPARISON: CT 01/20/14 FINDINGS: Vertebrae: Unremarkable. No acute fracture. Discs/spinal canal/neural foramina: Disc osteophyte complex of C4/C5 and C5/C6. Difficult to evaluate for the degree of central stenosis but there appears to be indentation of the thecal sac. Multilevel facet arthropathy is seen bilaterally worse on the left at C2/C3. Soft tissues: Unremarkable. Lung apices: Unremarkable as visualized. IMPRESSION: No acute findings. Degenerative changes as described.
--- NOTE | 2017-04-29 01:46 | CT ---
EXAM: CT Maxillofacial Without Intravenous Contrast CLINICAL HISTORY: Reason: Pain TECHNIQUE: Axial computed tomography images of the face without intravenous contrast. CTDI is 30.6 mGy and DLP is 667 mGy-cm. This CT exam was performed using one or more of the following dose reduction techniques: automated exposure control, adjustment of the mA and/or kV according to patient size, and/or use of iterative reconstruction technique. Coronal reformatted images were created and reviewed. COMPARISON: No relevant prior studies available. FINDINGS: Bones/joints: Bilateral nasal fractures including fractures of the left nasal process of the maxilla. Soft tissues: Nasal soft tissue swelling. Left periorbital soft tissue swelling. Orbits: Unremarkable. Sinuses: Mild mucosal thickening of the ethmoid air cells. No air- fluid levels. Dental: Bony defect involving the apex of teeth #11 and 12 which may be secondary to tooth displacement/fracture. IMPRESSION: Bilateral nasal fractures including fractures of the left nasal process of the maxilla. Bony defect involving the apex of teeth #11 and 12 which may be secondary to tooth displacement/fracture.
[2017-04-29] MEDS ORDERED: CEPHALEXIN 500MG STARTER PACK 4 CAP BTL PO STA (02:34)
[2017-04-29 04:30] VITALS: BP 116/62; PULSE 100; RESP 18
[2017-04-29 04:45] VITALS: TEMP 97.8
== END 2017-04-29 04:48 | disposition home or self-care (01) ==
LOC: EC 00:08
DX: S02.2XXA Fracture of nasal bones, initial encounter for closed fracture (principal); S09.93XA Unspecified injury of face, initial encounter; I10 Essential (primary) hypertension; F32.9 Major depressive disorder, single episode, unspecified; F41.9 Anxiety disorder, unspecified; F17.200 Nicotine dependence, unspecified, uncomplicated; Z99.2 Dependence on renal dialysis; Z98.890 Other specified postprocedural states; Z91.048 Other nonmedicinal substance allergy status; Z79.899 Other long term (current) drug therapy; Y04.0XXA Assault by unarmed brawl or fight, initial encounter
CPT/HCPCS: 82075; 36415; 80053; 85025; 72125; 70486; 70450; 99285; 96365; 96366 ×3; J3411

== ENCOUNTER 2017-05-10 10:05 | Day surgery (SDC) | payer OTHER ==
[2017-05-04 12:32] VITALS: BMI 26.2
[~2017-05-10 10:05] MED LIST: LACTATED RINGERS 1,000 ML IV SCH
[2017-05-10 10:47] VITALS: RESP 16; TEMP 98.7
[2017-05-10] MEDS ORDERED: LIDOCAINE 1% 20 ML VIAL (10MG/ML) FOR IV START INTRADERMA ONE (10:48)
--- NOTE | 2017-05-10 11:54 | P.PCN ---
Date of Procedure: 05/10/17 Preoperative Diagnosis: Postoperative Diagnosis: Procedure(s) Performed: PREOPERATIVE DIAGNOSIS: 1-Lumbar radicullopathy POSTOPERATIVE DIAGNOSIS: 1-Lumbar radiculopathy PROCEDURE 1. Lumbar epidural steroid injection under fluoroscopic guidance at the L5-S1 level. ( right side paramedian apprache ) 2. Lumbar epidurogram. ANESTHESIA: Local with 1% lidocaine 3 ml and IV sedation with Versed 2 mg , EBL: Minimal PROCEDURE INDICATION: The patient with low back pain and radiculitis symptoms unresponsive to conservative treatment. Fluoroscopy was used to optimize visualization of the needle placement and to maximize safety. PROCEDURE DESCRIPTION / TECHNIQUE: The patient was seen and identified in the preoperative area. Risks, benefits , complications including but not limited to infections ,bleeding ,allergic reaction to the medications ,nerve damage and not complete pain releife , and alternatives were discussed with the patient. The patient agreed to proceed with the procedure and signed the consent. IV was started, and vital signs were stable. Patient was taken to the OR and time out was completed. The patient was placed in the prone position on procedure table and a pillow was placed under the abdomen to reduce lumbar lordosis. The lumbosacral area was prepped and draped in the usual sterile fashion.ere closely monitored during the procedure. Conscious sedation was used during the procedure to decrease patients anxiety. Vital signs was monitered during the entire procedure. Using anterior-posterior fluoroscopy, the L5-S1 interlaminar space was identified and the skin over this site was marked and then infiltrated with 1% lidocaine subcutaneously. Subsequently, a 20-gauge Tuohy epidural needle was inserted and advanced toward the epidural space using the ``Loss of resistance technique and guided by AP and lateral fluoroscopy. The correct needle position in the epidural space was verified with the injection of 2 mL of the water soluble contrast dye Omnipaque 180 contrast and observing an excellent epidurogram with the epidural spread of the dye, after negative aspiration for blood and CSF and in the absence of paresthesias. Again after negative aspiration, a 6 ml mixture containing 20 mg of Dexamethasone and 2 ml of preservative free Normal Saline, and 2 ml of preservative free lidocaine 1% solution was injected and a washout of epidurogram was seen. Needle was withdrawn intact, skin was cleansed, and bandages were applied. COMPLICATIONS: None DISPOSITION / PLANS: The patient was placed in a supine position and transferred to the recovery area in a stable condition for observation. There was no evidence of lower extremity motor or sensory deficit after the procedure. Patient was discharged from the recovery room after meeting discharge criteria. Home discharge instructions were given to the patient by the staff. The patient was reexamined prior to discharge. The patient will schedule a follow up in the clinic in 2-4 weeks. Implants: Indications for Procedure: Operative Findings: Description of Procedure:
[2017-05-10] MEDS ORDERED: IV FLUID CONTINUATION 1,000 ML IV ONE (11:58)
[2017-05-10 12:17] VITALS: BP 150/93; PULSE 98
--- NOTE | 2017-05-10 13:36 | FL ---
EXAMINATION TYPE: FL guided pain mgmt statistic DATE OF EXAM: 05/10/2017 HISTORY: Pain 2 sec fl time used during lumbar epidural 1 image scanned into pacs
== END 2017-05-10 12:36 | disposition home or self-care (01) ==
LOC: ORPAIN 10:05
PROVIDERS: ATTEND Specialist
DX: M54.16 Radiculopathy, lumbar region (principal); J30.2 Other seasonal allergic rhinitis
CPT/HCPCS: 62323; J2250; J1100; Q9965; 99152

== ENCOUNTER → 2017-05-16 | Outpatient (CLI) | payer OTHER ==
[2017-05-16 14:50] LABS: Basophils % (A) 0 %; CH 34.1; CHCM 35.7; Eosinophils # (A) 0.1 k/uL (0-0.7); Eosinophils % (A) 2 %; HCT 42.9 % (39.0-53.0); HDW 2.32; HGB 14.6 gm/dL (13.0-17.5); Luc # (Auto) 0.21; Luc % (Auto) 3; Lymphocytes # (A) 2.6 k/uL (1.0-4.8); Lymphocytes % (A) 40 %; MCH 32.8 pg (25.0-35.0); MCHC 34.2 g/dL (31.0-37.0); Mean Platelet Volume 7.5; Monocytes # (A) 0.6 k/uL (0-1.0); Monocytes % (A) 9 %; Neutrophils # (A) 3.1 k/uL (1.3-7.7); Neutrophils % (A) 47 %; RBC 4.46 m/uL (4.30-5.90); RDW 14.3 % (11.5-15.5); WBC 6.6 k/uL (3.8-10.6); WBC (Perox) 6.37
[2017-05-16 14:51] LABS: Anion Gap 14 mmol/L; Blood Urea Nitrogen 16 mg/dL (9-20); Calcium 9.6 mg/dL (8.4-10.2); Carbon Dioxide 24 mmol/L (22-30); Chloride 103 mmol/L (98-107); Glucose 100 mg/dL (74-99); Iron 133 ug/dL (49-181); Magnesium 2.1 mg/dL (1.6-2.3); Non-African American GFR(MDRD) >60 (>60 ml/min/1.73 sqM); Phosphorous 4.1 mg/dL (2.5-4.5); Potassium 4.3 mmol/L (3.5-5.1); Sodium 141 mmol/L (137-145); Uric Acid 7.4 mg/dL (3.5-8.5)
[2017-05-16 15:00] LABS: % Iron Saturation 36.2 % (20-50); Total Iron Binding Capacity 367 ug/dL (261-462)
[2017-05-16 15:26] LABS: Appearance,Urine Clear (Clear); Bilirubin,Urine Negative (Negative); Glucose,Urine (UA) Negative (Negative); Ketones,Urine Negative (Negative); Leukocyte Esterase,Urine Negative (Negative); Nitrite,Urine Negative (Negative); Protein,Urine Negative (Negative); Specific Gravity,Urine 1.002 (1.001-1.035); UA Billing (MACRO vs. MICRO) CHEM; Urobilinogen,Urine <2.0 mg/dL (<2.0)
== END | disposition home or self-care (01) ==
LOC: LABWHC1 14:06
PROVIDERS: ATTEND Nurse Practitioner Family
DX: N17.9 Acute kidney failure, unspecified (principal); D50.9 Iron deficiency anemia, unspecified; D64.9 Anemia, unspecified; E55.9 Vitamin D deficiency, unspecified; M10.9 Gout, unspecified
CPT/HCPCS: 36415; 80048; 81003; 82306; 82728; 83540; 83550; 83735; 83970; 84100; 84550; 85025

== ENCOUNTER → 2017-06-05 | Outpatient (CLI) | payer OTHER ==
[2017-06-05 12:19] VITALS: BP 165/95; PULSE 65; RESP 16
--- NOTE | 2017-06-05 22:10 | P.PN ---
Subjective This is a follow-up visit for this patient with a history of low back pain with radiation to the right lower extremity, diagnosed with lumbar radiculitis with done lumbar epidural steroid injections 2, he reported that he had no benefit from the injection, currently is on Neurontin 800 mg every 6 hours, denies any side effects of the medication he denies any excessive drowsiness or sleepiness but he reported that he continued to have severe numbness and tingling sensation in the right lower extremity, patient had the MRI of the lumbar spine done in the past that showed patient had minimal stenosis, he continued to have severe numbness and tingling sensation radiated from the low back towards the right lower extremity mostly towards the right foot Objective - Vital Signs Vital signs: Vital Signs Temp Pulse 65 06/05/17 12:07 Resp 16 06/05/17 12:07 BP 165/95 06/05/17 12:07 Pulse Ox 98 06/05/17 12:07 Intake & Output 06/05/17 06/05/17 06/06/17 06:59 18:59 06:59 Weight 88.451 kg - Exam Physical Examinations : 1-Constitutiona : Cooperative , not in acute distress . 2-HEENT : nech ; supple , no Lymphadenopathy , normal thyroid size . eyes : no ptosis , no icterus, no photophobia . ENT : normal of hearing , normal oropharynx , no Thrush . 3- Respiratory : Chest clear to auscultations Bilaterally , no wheezing , no Rhonchi . 4- Cardiovascular : regular rate and rhythem , S1 , S2 , no S3 , no S4. 5- Gastrointestinal : abdomen soft no tenderness , bowel sounds positive all four quadrents , no organomegally . 6- Genitourinary : Defferred . 7- neurologic : Cranial nerve II to XII intact , no focal neurological deffecit . 8-psychatric : alert , oriented X 3 , appropriate affect , intact judgment and insight . 9-Lymphatic : no Lymphadenopathy . 10- musculoskeltal : . , Lumber spine = normal moter stegnth lower extremities ,thigh and legs .4/5 on the right side and its 5 or 5 on the left side deep tendon reflexes : normal Knee Jerk , normal ankle Jerk . strait leg raising test positive at 45 degree , RT , negative LT , Fabere test negative RT and negative LT . moderate tenderness over the Sacroiliac joint on the Right , Assessment and Plan Plan: Assessment and plan= lumbar radiculopathy to the right lower extremity, status post lumbar epidural steroid injections tend to patient reports she had 0 benefits from the injection, and he is on Neurontin 800 mg every 8 hours he denies any side effect of the medication, the best option at this point is to refer him to neurology for consultation and for EMG/nerve conduction study, Time with Patient: Less than 30
== END | disposition home or self-care (01) ==
LOC: PNWHC3 11:57
PROVIDERS: ATTEND Specialist
DX: M54.16 Radiculopathy, lumbar region (principal)
CPT/HCPCS: 99211

== ENCOUNTER 2017-09-22 21:16 | Emergency (ER) | payer OTHER ==
--- NOTE | 2017-09-22 21:40 | ED ---
General Adult HPI - General Stated complaint: Custodial Clearance Time Seen by Provider: 09/22/17 21:16 Source: RN notes reviewed - History of Present Illness Initial comments: This is a 41-year-old male who presents emergency Department intoxicated and in the custody of the police. Patient was extremely agitated and verbally abusive. Patient refused any physical exam. Patient refused to answer any questions. Patient stated his wrists hurt but he did not want me to evaluate them but he also was in handcuffs. Patient was not exhibiting any difficulty breathing there are no signs of obvious injury and he does not appear to be in any distress and he was fighting the police quite vigorously the whole time he was here - Related Data Home Medications Medication Instructions Recorded Confirmed Calcium Carbonate [Calcium] 600 mg PO DAILY 04/03/17 06/05/17 Cholecalciferol (Vitamin D3) 2,000 unit PO DAILY 04/03/17 06/05/17 [Vitamin D3] Garlic 1 each PO DAILY 04/24/17 06/05/17 Gabapentin [Gabapentin] 800 mg PO QID 05/10/17 06/05/17 Allergies Allergy/AdvReac Type Severity Reaction Status Date / Time seasonal Allergy Rash/Hives Uncoded 06/05/17 12:04 Review of Systems ROS Statement: Those systems with pertinent positive or pertinent negative responses have been documented in the HPI. ROS Other: All systems not noted in ROS Statement are negative. Past Medical History Past Medical History: Dialysis, Hypertension, Renal Disease Additional Past Medical History / Comment(s): right leg nerve damage/pain, right foot "broken but healing", insomnia. Dialysis Sep 2016-Dec 2016.FX nose History of Any Multi-Drug Resistant Organisms: None Reported Additional Past Surgical History / Comment(s): Rhinoplasty; pain procedures Past Anesthesia/Blood Transfusion Reactions: No Reported Reaction Past Psychological History: Anxiety, Depression Additional Psychological History / Comment(s): "Panic attacks" Smoking Status: Current every day smoker Past Alcohol Use History: Occasional Additional Past Alcohol Use History / Comment(s): 6 beers every 3 days; Has been smoking 1PPD for 23 yrs. Past Drug Use History: None Reported - Past Family History Father Family Medical History: Diabetes Mellitus Mother Additional Family Medical History / Comment(s): ETOH use General Exam - General Exam Comments Initial Comments: Patient refused any detailed physical exam. He was alert and oriented very combative. Patient was able to move his lower extremities she was breathing without difficulty he did not appear to be in any distress. Patient told me he did not want me to evaluate him any further and would not cooperate with any further exam. Patient was fighting the police vigorously the whole time he was in the emergency department. Medical Decision Making - Medical Decision Making I cleared the patient for [facility] because he was in no respiratory distress he did not complain of any chest pain and it did not appear obvious that he had any injury. he'll be diagnosed with left without being seen secondary to the fact that he did not let me completely evaluate him with physical exam. But he did look coherent enough to go to [facility]. Disposition Clinical Impression: Medical clearance for incarceration Disposition: Left Against Medical Advice Referrals: Alexandro Sanabria MD [Primary Care Provider] - 1-2 days Time of Disposition: 21:38
== END 2017-09-22 21:25 | disposition left against medical advice (07) ==
LOC: EC 21:16
DX: Z02.89 Encounter for other administrative examinations (principal); R45.1 Restlessness and agitation; F10.129 Alcohol abuse with intoxication, unspecified; F17.200 Nicotine dependence, unspecified, uncomplicated; Z79.899 Other long term (current) drug therapy; Z91.09 Other allergy status, other than to drugs and biological substances; Z86.69 Personal history of other diseases of the nervous system and sense organs; Z81.1 Family history of alcohol abuse and dependence
CPT/HCPCS: 99282

== ENCOUNTER → 2017-11-14 | Outpatient (CLI) | payer OTHER ==
[2017-11-14 11:48] VITALS: BP 123/80; PULSE 91; RESP 18
--- NOTE | 2017-11-14 12:18 | P.PN ---
Progress Note - Text Progress Note Date: 11/14/17 Patient returns for followup for back pain with radiation to RLE down to toes. Patient recently underwent LESI x 2, which provided some relief for only 1-2 weeks' interval apiece. Patient continues on OTC medications for pain with some relief. Patient denies adverse drug effects from medications. Today, pt denies new-onset weakness, bowel/bladder incontinence, or any other signs or symptoms of cauda equina syndrome. There are no signs of acute intoxication, and no indications of medication diversion or overuse. In addition to above, 13-point review of systems is also negative for chest pain , shortness of breath, changes in vision, changes in hearing, new onset weakness , abdominal pain, diarrhea, extreme fatigue, malaise, fever, skin changes, homicidal or suicidal ideation, or bowel or bladder incontinence. Vital Signs: Reviewed in EMR Gen: WDWN, AAOx3, NAD HEENT: NCAT, EOMI, hearing grossly normal Pulm: resp unlabored Abd: soft, NT, ND Neck: supple, trachea midline ROM in flexion lumbar spine: reduced ROM in extension lumbar spine: reduced Lumbar paravertebral tenderness: + Facet loading: + R side, neg L side SI joint tenderness: neg Jasper's test: neg Straight leg raise: + RLE at 5 degrees Neuro: CN II-XII grossly intact, muscle strength lower extremities PRESERVED EMG: demonstrates chronic L5 nerve root irritation Assessment: 1. lumbar radiculitis 2. chronic pain syndrome Plan: 1. Explanation: Opioid and psychological risk scores were reviewed. Diagnoses , prognoses, and multiple treatment options including but not limited to physical therapy, interventional therapies, adjuvant medical therapies, narcotic medication therapies, and surgery were discussed with the patient and all questions were answered to the patient's satisfaction. 2. Opioid agreement: no opioids prescribed today 3. Counseling: The patient was counseled extensively on BODY MASS INDEX, EXERCISE. Specifically, the patient was instructed regarding the importance of weight control, and exercise in the context of both chronic pain and overall health. 4. Procedures: Right L5-S1 TFESI 5. Consultations: None 6. Investigations: None 7. Medications: none prescribed 8. Disposition: f/u for procedure as scheduled PQRS measures: 1-Patient's medications are documented in the chart. 2-Tobacco use is positive, counseling given 3-Patient has not had a pneumococcal vaccine. 4-Advanced care planning discussed, patient unable to give. 5-Opioid contract NOT signed with the patient. 6-Pain positive, follow-up visit or procedure scheduled 7-Patient's blood pressure measured and documented, and patient will follow up with the primary care due to hypertension. 8-Patient's weight was measured, and body mass index ABOVE the normal limits, and counseling was done. Patient instructed to follow up with PCP. 9-Patient WAS NOT identified as an unhealthy alcohol user.
== END | disposition home or self-care (01) ==
LOC: PNWHC3 11:35
PROVIDERS: ATTEND Anesthesiology
DX: G89.4 Chronic pain syndrome (principal); M54.12 Radiculopathy, cervical region; Z79.899 Other long term (current) drug therapy
CPT/HCPCS: 99211

== ENCOUNTER 2017-12-12 05:52 | Day surgery (SDC) | payer OTHER ==
[2017-12-10 08:58] VITALS: BMI 28.2
[2017-12-12] MEDS ORDERED: LIDOCAINE 1% 20 ML VIAL (10MG/ML) FOR IV START INTRADERMA ONE (07:00)
[2017-12-12 07:02] VITALS: TEMP 98.4
[2017-12-12] MEDS ORDERED: LACTATED RINGERS 1,000 ML IV ONE (07:02)
[2017-12-12] MEDS ORDERED: IV FLUID CONTINUATION 1,000 ML IV ONE ×2 (07:29)
[2017-12-12 07:41] VITALS: RESP 16
[2017-12-12 08:06] VITALS: BP 126/78; PULSE 77
--- NOTE | 2017-12-12 08:33 | P.PCN ---
Date of Procedure: 12/12/17 Surgeon: Dixon Mcgowan Pathology: none sent Condition: stable Disposition: PACU Description of Procedure: PREOPERATIVE DIAGNOSIS: Lumbar radiculopathy POSTOPERATIVE DIAGNOSIS: Lumbar radiculopathy PROCEDURE: 1. Transforaminal epidural steroid injection under fluoroscopic guidance at right L5 level. 2. Lumbar epidurogram. ANESTHESIA: Local with 1% lidocaine EBL: Minimal PROCEDURE INDICATION: The patient with low back pain and radiculopathy symptoms unresponsive to conservative treatment. Patient has pain only on the right side , so will proceed with TFESI today. No use of blood thinners. PROCEDURE DESCRIPTION / TECHNIQUE: The patient was seen and identified in the preoperative area. Risks, benefits, complications, and alternatives were discussed with the patient (including but not limited to incomplete pain relief, bleeding, infection, nerve damage, and allergies to medications), the patient agreed to proceed with the procedure and signed the consent after all questions were answered. Patient was taken to the OR and time out was completed to verify proper patient, position, laterality of pain, and allergies. Pt was placed in the prone position and a pillow was placed under the abdomen to reduce lumbar lordosis. The lumbosacral area was prepped and draped in the usual sterile fashion. Vital signs were closely monitored during the procedure. Using oblique fluoroscopy, the chin of the Chano dog at right L5 level was identified, and the skin and deeper tissues just below was localized with 1% lidocaine. Subsequently, a 22-gauge 3.5-inch spinal needle was advanced under a tunneled view fluoroscopic guidance just underneath the chin of the Chano dog at the right L5 level. Under lateral fluoroscopy, the needle was then advanced to the posterior border of the L5-S1 interforaminal space. After negative aspiration of CSF and blood and with no paresthesias, 0.5 mL of Isovue- 200 contrast dye was injected excellent epidurogram and outlining of the L5 nerve root. Subsequently, 3 mL block solution containing 10 mg of Decadron and 2 mL of PF lidocaine 1% was injected. At the end of the procedure, needles were removed intact, skin was cleansed, and bandages were applied. COMPLICATIONS: None COMMENTS: None. DISPOSITION / PLANS: The patient was placed in a supine position and transferred to the recovery area in a stable condition for observation. There was no evidence of lower extremity motor or sensory deficit after the procedure. Patient was discharged from the recovery room after meeting discharge criteria. Home discharge instructions were given to the patient by the staff. The patient was reexamined prior to discharge and there were no issues. The patient will schedule a follow up in clinic in 4-6 weeks.
--- NOTE | 2017-12-12 09:03 | FL ---
Fluoroscopy INDICATION: Pain FINDINGS: Fluoroscopy time: 10 seconds. Images obtained: 3. IMPRESSIONS: 1. Documentation of fluoroscopy.
== END 2017-12-12 08:09 | disposition home or self-care (01) ==
LOC: ORPAIN 05:52
PROVIDERS: ATTEND Anesthesiology
DX: G89.4 Chronic pain syndrome (principal); M54.16 Radiculopathy, lumbar region
CPT/HCPCS: 64483; J1100; Q9966

== ENCOUNTER → 2017-12-27 | Outpatient (CLI) | payer OTHER ==
[2017-12-27 14:20] VITALS: BP 122/81; PULSE 86; RESP 16
--- NOTE | 2017-12-27 15:20 | P.PN ---
Progress Note - Text Progress Note Date: 12/27/17 In addition to above, 13-point review of systems is also negative for chest pain , shortness of breath, changes in vision, changes in hearing, new onset weakness , abdominal pain, diarrhea, extreme fatigue, malaise, fever, skin changes, homicidal or suicidal ideation, or bowel or bladder incontinence. Vital Signs: Reviewed in EMR Gen: WDWN, AAOx3, NAD HEENT: NCAT, EOMI, hearing grossly normal Pulm: resp unlabored Abd: soft, NT, ND Neck: supple, trachea midline ROM in flexion lumbar spine: reduced ROM in extension lumbar spine: reduced Lumbar paravertebral tenderness: + Facet loading: + R side, neg L side SI joint tenderness: neg Jasper's test: neg Straight leg raise: + RLE at 5 degrees This is a 42-year-old male with history of overdose on opioids and alcohol that resulted in, for 7 days and acute renal failure. Since then the patient has been having increasing lower back pain and right leg pain that goes all the way down to his Rt foot with numbness and tingling in his right foot. The patient had lumbar interlaminar and transforaminal epidural steroid injections previously which did not help his pain. Neuro: CN II-XII grossly intact, muscle strength lower extremities shows mild weakness in the right lower extremity. EMG: demonstrates chronic L5 nerve root irritation Assessment: 1. lumbar radiculitis 2. chronic pain syndrome 3-lumbar spondylosis without myelopathy Plan: 1. Explanation: Opioid and psychological risk scores were reviewed. Diagnoses , prognoses, and multiple treatment options including but not limited to physical therapy, interventional therapies, adjuvant medical therapies, narcotic medication therapies, and surgery were discussed with the patient and all questions were answered to the patient's satisfaction. 2. Opioid agreement: no opioids prescribed today 3. Counseling: The patient was counseled extensively on BODY MASS INDEX, EXERCISE. Specifically, the patient was instructed regarding the importance of weight control, and exercise in the context of both chronic pain and overall health. 4. Procedures: Lumbar bilateral medial branch block for levels L3 4, L4-L5, and L5-S1. The patient understands that this procedure would not help his right leg pain coming from neuropathy. 5. Consultations: I'll refer him for physical therapy 6. Investigations: None 7. Medications: Zanaflex 4 mg twice a day 8. Disposition: f/u for procedure as scheduled PQRS measures: 1-Patient's medications are documented in the chart. 2-Tobacco use is positive, counseling given 3-Patient has not had a pneumococcal vaccine. 4-Advanced care planning discussed, patient unable to give. 5-Opioid contract NOT signed with the patient. 6-Pain positive, follow-up visit or procedure scheduled 7-Patient's blood pressure measured and documented, and patient will follow up with the primary care due to hypertension. 8-Patient's weight was measured, and body mass index ABOVE the normal limits, and counseling was done. Patient instructed to follow up with PCP. 9-Patient WAS NOT identified as an unhealthy alcohol user. This is a 42-year-old male with history of overdose on Xanax and alcohol that resulted in severe hypovolemia and acute kidney failure and, for about 7 days.
== END | disposition home or self-care (01) ==
LOC: PNWHC3 13:29
PROVIDERS: ATTEND Anesthesiology
DX: G89.4 Chronic pain syndrome (principal); M47.26 Other spondylosis with radiculopathy, lumbar region; Z72.0 Tobacco use; Z71.6 Tobacco abuse counseling
CPT/HCPCS: 99211

== ENCOUNTER → 2018-01-21 | Outpatient (CLI) | payer OTHER ==
[2018-01-21 14:39] LABS: HCT 41.5 % (39.0-53.0); MCH 29.7 pg (25.0-35.0); MCHC 33.7 g/dL (31.0-37.0); MCV 88.3 fL (80.0-100.0); Mean Platelet Volume 7.1; Platelet Count 251 k/uL (150-450); RBC 4.69 m/uL (4.30-5.90); WBC 9.7 k/uL (3.8-10.6)
[2018-01-21 14:52] LABS: Anion Gap 9 mmol/L; Blood Urea Nitrogen 13 mg/dL (9-20); Calcium 9.6 mg/dL (8.4-10.2); Carbon Dioxide 27 mmol/L (22-30); Chloride 107 mmol/L (98-107); Glucose 96 mg/dL (74-99); Phosphorus 3.8 mg/dL (2.5-4.5); Potassium 4.4 mmol/L (3.5-5.1); Sodium 143 mmol/L (137-145); Uric Acid 5.2 mg/dL (3.5-8.5)
[2018-01-21 15:06] LABS: Appearance,Urine Clear (Clear); Bilirubin,Urine Negative (Negative); Blood,Urine Negative (Negative); Color,Urine Yellow; Glucose,Urine (UA) Negative (Negative); Ketones,Urine Trace (Negative); Leukocyte Esterase,Urine Trace (Negative); Nitrite,Urine Negative (Negative); PH, Urine 7.5 (5.0-8.0); Protein,Urine Trace (Negative); RBC,Urine <1 /hpf (0-5); Specific Gravity,Urine 1.021 (1.001-1.035); WBC,Urine 3 /hpf (0-5)
[2018-01-21 18:39] LABS: Iron Saturation 25.07 (15.00-50.00)
[2018-01-21 18:48] LABS: Vitamin D 25 Hydroxy 26.4 ng/mL (30.0-100.0)
[2018-01-21 19:00] LABS: Parathyroid Hormone Intact 52.2 pg/mL (14.0-72.0)
== END ==
LOC: LABWHC1 14:12
PROVIDERS: ATTEND Nurse Practitioner Family
DX: E55.9 Vitamin D deficiency, unspecified (principal); M10.9 Gout, unspecified; N25.81 Secondary hyperparathyroidism of renal origin; N39.0 Urinary tract infection, site not specified; D64.9 Anemia, unspecified; N17.9 Acute kidney failure, unspecified; D50.9 Iron deficiency anemia, unspecified
CPT/HCPCS: 36415; 80048; 81001; 82306; 82728; 83540; 83550; 83735; 83970; 84100; 84550; 85027

== ENCOUNTER 2018-02-03 15:14 | Emergency (ER) | payer OTHER ==
[2018-02-03 15:25] VITALS: BP 131/70; PULSE 78; RESP 20
--- NOTE | 2018-02-03 16:01 | ED ---
Skin/Abscess/FB HPI - General Chief complaint: Skin/Abscess/Foreign Body Stated complaint: Abcess on leg Time Seen by Provider: 02/03/18 15:51 Source: patient, RN notes reviewed Mode of arrival: ambulatory Limitations: no limitations - History of Present Illness Initial comments: 42-year-old male presents emergency from chief complaint of infection to his left leg. Patient states that he had a blister which has ruptured no erythema has developed. Patient states that he's had no fever no chills. He's had a few of these in the past which have been cultured no evidence of MRSA. Patient states is painful if you palpate over that region. - Related Data Home Medications Medication Instructions Recorded Confirmed Gabapentin [Gabapentin] 800 mg PO TID 05/10/17 01/31/18 Baclofen [Lioresal] 20 mg PO BID PRN 01/31/18 01/31/18 Previous Rx's Medication Instructions Recorded Cephalexin [Keflex] 500 mg PO Q6HR #40 cap 02/03/18 Allergies Allergy/AdvReac Type Severity Reaction Status Date / Time No Known Allergies Allergy Verified 02/03/18 15:25 Review of Systems ROS Statement: Those systems with pertinent positive or pertinent negative responses have been documented in the HPI. ROS Other: All systems not noted in ROS Statement are negative. Past Medical History Past Medical History: Dialysis, Hypertension, Renal Disease Additional Past Medical History / Comment(s): right leg nerve damage/pain, right foot "broken but healing", insomnia. Dialysis Sep 2016-Dec 2016.FX nose . Proteinuria History of Any Multi-Drug Resistant Organisms: None Reported Additional Past Surgical History / Comment(s): Rhinoplasty; pain procedures Past Anesthesia/Blood Transfusion Reactions: No Reported Reaction Past Psychological History: Anxiety, Depression Smoking Status: Current every day smoker Past Alcohol Use History: Occasional Past Drug Use History: None Reported - Past Family History Father Family Medical History: Diabetes Mellitus Mother Family Medical History: No Reported History Additional Family Medical History / Comment(s): ETOH use General Exam Limitations: no limitations General appearance: alert, in no apparent distress Head exam: Present: atraumatic, normocephalic, normal inspection Neck exam: Present: normal inspection, full ROM. Absent: tenderness, meningismus, lymphadenopathy Respiratory exam: Present: normal lung sounds bilaterally. Absent: respiratory distress, wheezes, rales, rhonchi, stridor Cardiovascular Exam: Present: regular rate, normal rhythm, normal heart sounds. Absent: systolic murmur, diastolic murmur, rubs, gallop, clicks Extremities exam: Present: other (Left lower extremity anterior surface there is one centimeter abscess erythema minimal fluctuant) Course Vital Signs 02/03/18 15:22 Temperature 98.0 F Pulse Rate 78 Respiratory 20 Rate Blood Pressure 131/70 O2 Sat by Pulse 100 Oximetry Medical Decision Making - Medical Decision Making 42-year-old male presents for left leg infection. Patient will be placed on Keflex at this time. Return parameters were discussed. Disposition Clinical Impression: Abscess of left leg Disposition: HOME SELF-CARE Condition: Stable Instructions: Abscess (ED) Additional Instructions: Please return to the Emergency Department if symptoms worsen or any other concerns. Prescriptions: Cephalexin [Keflex] 500 mg PO Q6HR #40 cap Is patient prescribed a controlled substance at d/c from ED?: No Referrals: Silvia Rios MD [Primary Care Provider] - 1-2 days Time of Disposition: 16:00
[2018-02-03 16:12] VITALS: TEMP 98.7
== END 2018-02-03 16:10 | disposition home or self-care (01) ==
LOC: EC 15:14
DX: L02.416 Cutaneous abscess of left lower limb (principal); F41.9 Anxiety disorder, unspecified; F17.200 Nicotine dependence, unspecified, uncomplicated; Z79.899 Other long term (current) drug therapy
CPT/HCPCS: 99282

== ENCOUNTER → 2018-02-12 | Outpatient (CLI) | payer OTHER ==
[2018-02-12 14:52] LABS: HCT 40.6 % (39.0-53.0); HGB 13.8 gm/dL (13.0-17.5); MCH 29.9 pg (25.0-35.0); MCHC 33.9 g/dL (31.0-37.0); MCV 88.1 fL (80.0-100.0); Mean Platelet Volume 7.1; Platelet Count 237 k/uL (150-450); RBC 4.61 m/uL (4.30-5.90); RDW 13.1 % (11.5-15.5); WBC 8.6 k/uL (3.8-10.6)
[2018-02-12 14:54] LABS: Appearance,Urine Clear (Clear); Bilirubin,Urine Negative (Negative); Blood,Urine Negative (Negative); Color,Urine Yellow; Glucose,Urine (UA) Negative (Negative); Ketones,Urine Negative (Negative); Leukocyte Esterase,Urine Trace (Negative); Mucus,Urine Rare /hpf; Nitrite,Urine Negative (Negative); PH, Urine 6.5 (5.0-8.0); Protein,Urine Negative (Negative); Specific Gravity,Urine 1.015 (1.001-1.035); WBC,Urine 2 /hpf (0-5)
[2018-02-12 15:28] LABS: Creatinine,Urine Random 138.1 mg/dL
--- NOTE | 2018-02-12 15:38 | US ---
EXAMINATION TYPE: US kidneys/renal and bladder DATE OF EXAM: 02/12/2018 COMPARISON: 12/13/2016 CLINICAL HISTORY: N17.9 Acute Kidney Injury. DEBI EXAM MEASUREMENTS: Right Kidney: 11.4 x 4.6 x 5.0 cm Left Kidney: 11.2 x 6.0 x 4.9 cm Right Kidney: subtle irregular hypoechoic area mid right kidney as on prior exam = 1.2 x 1.4 x 1.5cm Left Kidney: lobulated contour Bladder: appears wnl Bilateral Jets seen: no No hydronephrosis or nephrolithiasis. IMPRESSION: 1. Stable right renal hypoechoic nodule which does not meet the criteria of a simple cyst. Correlatio n with MRI could BE obtained.
[2018-02-12 16:02] LABS: Anion Gap 11 mmol/L; Blood Urea Nitrogen 14 mg/dL (9-20); Calcium 9.1 mg/dL (8.4-10.2); Carbon Dioxide 24 mmol/L (22-30); Chloride 105 mmol/L (98-107); Glucose 92 mg/dL (74-99); Magnesium 2.1 mg/dL (1.6-2.3); Phosphorus 3.8 mg/dL (2.5-4.5); Potassium 4.3 mmol/L (3.5-5.1); Sodium 140 mmol/L (137-145); Uric Acid 5.1 mg/dL (3.5-8.5)
[2018-02-12 18:50] LABS: Vitamin D 25 Hydroxy 30.6 ng/mL (30.0-100.0)
[2018-02-12 18:54] LABS: Iron Saturation 25.51 (15.00-50.00)
[2018-02-12 19:39] LABS: Hepatitis B Surface AB- Quant 3.5 mIU/mL; Hepatitis C IgG Antibody Non-Reactive (Non-Reactive)
[2018-02-12 19:50] LABS: Parathyroid Hormone Intact 51.4 pg/mL (14.0-72.0)
[2018-02-13 12:30] LABS: Complement C3 83.6 mg/dL (80.0-207.0)
[2018-02-13 14:58] LABS: C-ANCA <1:20 Titer (<1:20); P-ANCA <1:20 Titer (<1:20)
== END | disposition home or self-care (01) ==
LOC: RADUSWWP 13:51
PROVIDERS: ATTEND Internal Medicine Nephrology
DX: N28.89 Other specified disorders of kidney and ureter (principal); R80.9 Proteinuria, unspecified; N17.9 Acute kidney failure, unspecified; D50.9 Iron deficiency anemia, unspecified; N39.0 Urinary tract infection, site not specified; E83.39 Other disorders of phosphorus metabolism
CPT/HCPCS: 76770; 80048; 81001; 82306; 82570; 82728; 83516; 83540; 83550; 83735; 83883; 83970; 84100; 84156; 84166; 84550; 85027; 86038; 86160; 86162; 86255; 86334; 86706; 86803; 87340

== ENCOUNTER → 2018-02-14 | Outpatient (CLI) | payer OTHER ==
--- NOTE | 2018-02-14 12:56 | XR ---
EXAMINATION TYPE: XR knee complete LT DATE OF EXAM: 02/14/2018 CLINICAL HISTORY: Pain for 10 days after injury. TECHNIQUE: Three views of the left knee are obtained. A fourth sunrise view was acquired COMPARISON: None. FINDINGS: There is no acute fracture/dislocation evident in left knee. The tri-compartment joint sp aces appear within normal limits. Patellar articulation is within normal limits on sunrise view. The overlying soft tissue appears unremarkable. On lateral view only there is presumed external object o verlying the distal femoral diaphysis only partially imaged. IMPRESSION: There is no acute fracture or dislocation in the left knee.
== END | disposition home or self-care (01) ==
LOC: RADXRMAIN 12:37
PROVIDERS: ATTEND Family Medicine
DX: S89.92XA Unspecified injury of left lower leg, initial encounter (principal); Z91.81 History of falling

== ENCOUNTER 2018-02-28 06:44 | Day surgery (SDC) | payer OTHER ==
[2018-02-25 09:14] VITALS: BMI 26.4
[2018-02-28 07:29] VITALS: TEMP 98
[2018-02-28] MEDS ORDERED: LIDOCAINE 1% 20 ML VIAL (10MG/ML) FOR IV START INTRADERMA ONE (07:37)
--- NOTE | 2018-02-28 08:49 | P.PCN ---
Date of Procedure: 02/28/18 Surgeon: Chris Schaffer Pathology: none sent Condition: stable Disposition: PACU Description of Procedure: PREOPERATIVE DIAGNOSIS : 1- Lumbar spondylosis with Facet Arthropathy without myelopathy . 2- Lumber degenerative disc disease POSTOPERATIVE DIAGNOSIS: 1- Lumbar spondylosis with Facet Arthropathy without myelopathy . 2- Lumber degenerative disc disease PROCEDURE: Diagnostic bilateral L3 -4 , L4 -5 , and L5-S1 medial branch block under fluoroscopy ANESTHESIA: Local with 1% lidocaine; IV sedation with Versed 2 mg . EBL: Negligible COMPLICATION: None. PROCEDURE INDICATION: Chronic low back pain secondary to Facet arthropathy unresponsive to conservative treatment. PROCEDURE DESCRIPTION: the patient was seen and identified in the preop holding area , risks and benefits and possible complications of the procedure and alternatives were discussed with the patient, and the patient agreed to proceed with the procedure and signed the consent. IV was started and vital signs monitored during the procedure and fluoroscopy was used to maximize the benefit and accuracy of the needle placement, sedation was given to decrease patient anxiety, patient was taken to the procedure room and placed in prone position vital signs monitored. The patient was brought into the procedure room and placed in prone position. Skin was prepped with Chloraprep and draped in a sterile manner. Lidocaine 1 % was used to numb the skin up at the target points that were chosen as follows : at the L5-S1 level which corresponds to the dorsal ramus of L5 the target points were at the superior medial aspect of the sacral ala on each side of the spine on the AP view of fluoroscopy, and for theL2, L3 and L4 medial branches the target points were the connection between the transverse process and the superior to go process of L3, L4 and L5 respectively on the oblique views of fluoroscopy. I used 22-gauge 3-1/2 inch Quincke spinal needles for this procedure and after contacting bone at the target points mentioned above I injected 1 mL of a mixture of Kenalog 40 mg +5 MLS of Ropivacaine 0.5% PF . Patient tolerated procedure well. At the end of the procedure the needles removed and a bandage applied after the skin was cleaned the cleaning solution. patient was then taken to the recovery room in stable condition and monitored in the recovery room for 20-30 minutes and discharged home in stable condition after discharge criteria met .
[2018-02-28] MEDS ORDERED: IV FLUID CONTINUATION 875 ML IV ONE (08:50)
[2018-02-28 08:58] VITALS: BP 124/84; PULSE 67; RESP 18
--- NOTE | 2018-02-28 09:07 | FL ---
EXAMINATION TYPE: FL guided pain mgmt statistic DATE OF EXAM: 02/28/2018 HISTORY: Pain 7 sec fl time 1 image scanned
== END 2018-02-28 09:26 | disposition home or self-care (01) ==
LOC: ORPAIN 06:44
PROVIDERS: ATTEND Anesthesiology
DX: G89.29 Other chronic pain (principal); M47.816 Spondylosis without myelopathy or radiculopathy, lumbar region; M51.36 Other intervertebral disc degeneration, lumbar region
CPT/HCPCS: 64493; 64494; 64495; J2250; J3301; 99152

== ENCOUNTER → 2018-03-07 | Outpatient (CLI) | payer OTHER ==
--- NOTE | 2018-03-08 00:31 | MR ---
EXAMINATION TYPE: MR knee LT wo con DATE OF EXAM: 03/07/2018 COMPARISON: HISTORY: Left knee pain and swelling TECHNIQUE: Multiplanar, multisequence imaging of the left knee is performed without IV contrast. FINDINGS: The anterior and posterior cruciate ligaments are intact. The medial and lateral menisci appear intac t. There is a minute knee joint effusion. The collateral ligaments are intact. Patella appears intact . There is no evidence of a fracture. I see no bony destructive process. There is mild subcutaneous e rita fluid anterior to the patella. IMPRESSION: Minute knee joint effusion. No evidence of meniscal or ligamentous tear. No fracture. Fluid anterior to the patella could relate to patellar bursitis.
== END | disposition home or self-care (01) ==
LOC: RADMRIMAIN 19:28
PROVIDERS: ATTEND Family Medicine
DX: M25.462 Effusion, left knee (principal)

== ENCOUNTER 2018-03-19 08:44 | Day surgery (SDC) | payer OTHER ==
[2018-03-18 08:42] VITALS: BMI 25.6
[2018-03-19 09:47] VITALS: RESP 16; TEMP 97.4
[2018-03-19] MEDS ORDERED: LIDOCAINE 1% 20 ML VIAL (10MG/ML) FOR IV START INTRADERMA ONE (09:54)
--- NOTE | 2018-03-19 10:40 | P.PCN ---
Date of Procedure: 03/19/18 Surgeon: Chris Schaffer Pathology: none sent Condition: stable Disposition: PACU Description of Procedure: PREOPERATIVE DIAGNOSIS : 1- Lumbar spondylosis with Facet Arthropathy without myelopathy . 2- Lumber degenerative disc disease POSTOPERATIVE DIAGNOSIS: 1- Lumbar spondylosis with Facet Arthropathy without myelopathy . 2- Lumber degenerative disc disease PROCEDURE: Diagnostic bilateral L3 -4 , L4 -5 , and L5-S1 medial branch block under fluoroscopy ANESTHESIA: Local with 1% lidocaine; IV sedation with Versed 2 mg . EBL: Negligible COMPLICATION: None. PROCEDURE INDICATION: Chronic low back pain secondary to Facet arthropathy unresponsive to conservative treatment. PROCEDURE DESCRIPTION: the patient was seen and identified in the preop holding area , risks and benefits and possible complications of the procedure and alternatives were discussed with the patient, and the patient agreed to proceed with the procedure and signed the consent. IV was started and vital signs monitored during the procedure and fluoroscopy was used to maximize the benefit and accuracy of the needle placement, sedation was given to decrease patient anxiety, patient was taken to the procedure room and placed in prone position vital signs monitored. The patient was brought into the procedure room and placed in prone position. Skin was prepped with Chloraprep and draped in a sterile manner. Lidocaine 1 % was used to numb the skin up at the target points that were chosen as follows : at the L5-S1 level which corresponds to the dorsal ramus of L5 the target points were at the superior medial aspect of the sacral ala on each side of the spine on the AP view of fluoroscopy, and for theL2, L3 and L4 medial branches the target points were the connection between the transverse process and the superior to go process of L3, L4 and L5 respectively on the oblique views of fluoroscopy. I used 22-gauge 3-1/2 inch Quincke spinal needles for this procedure and after contacting bone at the target points mentioned above I injected 1 mL of a mixture of Kenalog 40 mg +5 MLS of Ropivacaine 0.5% PF . Patient tolerated procedure well. At the end of the procedure the needles removed and a bandage applied after the skin was cleaned the cleaning solution. patient was then taken to the recovery room in stable condition and monitored in the recovery room for 20-30 minutes and discharged home in stable condition after discharge criteria met .
[2018-03-19] MEDS ORDERED: KETOROLAC 30 MG/ML 1 ML VIAL IVP ONE (10:58)
--- NOTE | 2018-03-19 10:58 | FL ---
Fluoroscopy HISTORY: Pain 7 seconds fluoroscopy time supplied to the referring clinician. 3 intraoperative C-arm images docume nt the procedure. See dictated report from anesthesia.
[2018-03-19 11:10] VITALS: BP 130/85; PULSE 70
[2018-03-19] MEDS ORDERED: IV FLUID CONTINUATION 1,000 ML IV ONE (11:12)
== END 2018-03-19 11:17 | disposition home or self-care (01) ==
LOC: ORPAIN 08:44
PROVIDERS: ATTEND Anesthesiology
DX: G89.29 Other chronic pain (principal); M47.816 Spondylosis without myelopathy or radiculopathy, lumbar region; M51.36 Other intervertebral disc degeneration, lumbar region
CPT/HCPCS: 64493; 64494; 64495; J3301; J1885; 99152

== ENCOUNTER 2018-03-24 12:06 | Emergency (ER) | payer OTHER ==
[2018-03-24 12:26] VITALS: RESP 18; TEMP 99.2
[2018-03-24] MEDS ORDERED: DIPH,PERTUS(ACELL)TETVAC-LF 0.5 ML VIAL IM ONE (12:53)
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
[2018-03-24 14:03] LABS: Appearance,Urine Clear (Clear); Bilirubin,Urine Negative (Negative); Blood,Urine Negative (Negative); Color,Urine Yellow; Glucose,Urine (UA) Negative (Negative); Ketones,Urine Negative (Negative); Leukocyte Esterase,Urine Negative (Negative); Nitrite,Urine Negative (Negative); Protein,Urine Negative (Negative); Specific Gravity,Urine 1.013 (1.001-1.035); Urobilinogen,Urine <2.0 mg/dL (<2.0)
[2018-03-24 14:50] LABS: Amphetamine Screen,Urine Detected (NotDetected); Barbiturate Screen,Urine Not Detected (NotDetected); Benzodiazepines Screen,Urine Not Detected (NotDetected); Cocaine Screen,Urine Not Detected (NotDetected); Methadone Screen, Urine Not Detected (NotDetected); Opiate Screen,Urine Not Detected (NotDetected); Oxycodone Screen, Urine Detected (NotDetected); Phencyclidine Screen,Urine Not Detected (NotDetected); Tricyclic Antidepressant,Urine Not Detected (NotDetected); Urn Cannabinoid Scrn Not Detected (NotDetected)
[2018-03-24 14:52] LABS: ALT 36 U/L (21-72); AST 26 U/L (17-59); Albumin 3.7 g/dL (3.5-5.0); Alkaline Phosphatase 52 U/L (38-126); Anion Gap 7 mmol/L; Blood Urea Nitrogen 13 mg/dL (9-20); Calcium 8.9 mg/dL (8.4-10.2); Carbon Dioxide 25 mmol/L (22-30); Chloride 110 mmol/L (98-107); Glucose 95 mg/dL (74-99); Potassium 4.3 mmol/L (3.5-5.1); Sodium 142 mmol/L (137-145); Total Bilirubin 0.2 mg/dL (0.2-1.3); Total Protein 5.6 g/dL (6.3-8.2)
[2018-03-24 14:57] LABS: Alcohol 118 mg/dL
--- NOTE | 2018-03-24 14:58 | CT ---
EXAMINATION TYPE: CT brain shanae wo con DATE OF EXAM: 03/24/2018 COMPARISON: The HISTORY: trauma headache. Neck pain CT DLP: 1452.0 mGycm Automated exposure control for dose reduction was used. TECHNIQUE: CT scan of the head and cervical spine are performed without contrast. FINDINGS: Ventricles and sulci appear normal. There is no mass effect nor midline shift. There is n o sign of intracranial hemorrhage. The calvarium is intact. The cervical vertebra have normal spacing and alignment. Posterior elements are intact. There is saige r spurring of the endplates and facet joints. Skull base is intact. IMPRESSION: Negative CT scan of the brain. Negative CT scan of the cervical spine.
[2018-03-24 14:59] LABS: Prothrombin Time 9.8 sec (9.0-12.0)
[2018-03-24 15:07] LABS: Basophils % (A) 0 %; Eosinophils % (A) 0 %; HCT 40.8 % (39.0-53.0); HGB 14.1 gm/dL (13.0-17.5); Lymphocytes # (A) 1.9 k/uL (1.0-4.8); Lymphocytes % (A) 14 %; MCHC 34.4 g/dL (31.0-37.0); MCV 87.1 fL (80.0-100.0); Mean Platelet Volume 6.7; Monocytes % (A) 7 %; Neutrophils # (A) 10.3 k/uL (1.3-7.7); Neutrophils % (A) 77 %; Platelet Count 219 k/uL (150-450); RBC 4.68 m/uL (4.30-5.90); RDW 14.2 % (11.5-15.5); WBC 13.4 k/uL (3.8-10.6)
[2018-03-24 15:10] VITALS: BP 139/74; PULSE 83
[2018-03-24 15:10] LABS: Partial Thromboplastin Time 21.3 sec (22.0-30.0)
--- NOTE | 2018-03-24 15:26 | XR ---
EXAMINATION TYPE: XR chest 2V DATE OF EXAM: 03/24/2018 COMPARISON: 09/25/2016 HISTORY: Chest pain TECHNIQUE: Frontal and lateral views of the chest are obtained. FINDINGS: Heart and mediastinum are normal. Lungs are clear. Diaphragm is normal. Bony thorax is int act. IMPRESSION: Normal chest. No adverse change compared to old exam.
--- NOTE | 2018-03-24 15:27 | XR ---
EXAMINATION TYPE: XR knee complete RT DATE OF EXAM: 03/24/2018 COMPARISON: NONE HISTORY: Knee pain TECHNIQUE: 3 views FINDINGS: There is small knee joint effusion. I see no fracture nor dislocation. There is mild soft t issue swelling anterior to the patella. Joint spaces are normal. IMPRESSION: Mild soft tissue swelling. Small knee joint effusion. No fracture.
--- NOTE | 2018-03-24 15:29 | XR ---
EXAMINATION TYPE: XR toes LT DATE OF EXAM: 03/24/2018 COMPARISON: NONE HISTORY foot pain Findings 3 views of the left big toe were obtained. I see no fracture nor dislocation. Joint spaces are fairly normal. IMPRESSION: Negative left big toe exam.
== END 2018-03-24 15:58 | disposition home or self-care (01) ==
LOC: EC 12:06
DX: S00.11XA Contusion of right eyelid and periocular area, initial encounter (principal); S80.01XA Contusion of right knee, initial encounter; S00.411A Abrasion of right ear, initial encounter; F10.129 Alcohol abuse with intoxication, unspecified; I12.9 Hypertensive chronic kidney disease with stage 1 through stage 4 chronic kidney disease, or unspecified chronic kidney disease; N18.9 Chronic kidney disease, unspecified; F17.200 Nicotine dependence, unspecified, uncomplicated; Z79.899 Other long term (current) drug therapy; Z99.2 Dependence on renal dialysis; X58.XXXA Exposure to other specified factors, initial encounter; Z23 Encounter for immunization
CPT/HCPCS: 36415; 70450; 71046; 72125; 80053; 80306; 80320; 81003; 83605; 85025; 85610; 85730; 90471; 90715; 99284

== ENCOUNTER 2018-04-15 11:39 | Emergency (ER) | payer OTHER ==
[2018-04-15 12:07] VITALS: BP 158/87; PULSE 99; RESP 20; TEMP 97.7
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
== END 2018-04-15 12:44 | disposition home or self-care (01) ==
LOC: EC 11:39
DX: F10.239 Alcohol dependence with withdrawal, unspecified (principal); F17.200 Nicotine dependence, unspecified, uncomplicated; Z79.899 Other long term (current) drug therapy; Z99.2 Dependence on renal dialysis
CPT/HCPCS: 99283

== ENCOUNTER 2019-03-12 19:30 | Emergency (ER) | payer OTHER ==
[2019-03-12 19:45] VITALS: BP 131/76; PULSE 64; RESP 20; TEMP 98.4
--- NOTE | 2019-03-12 21:11 | ED ---
General Adult HPI - General Chief complaint: Skin/Abscess/Foreign Body Stated complaint: insect bite on face Time Seen by Provider: 03/12/19 19:49 Source: patient Mode of arrival: ambulatory Limitations: no limitations - History of Present Illness Initial comments: Patient is a 43-year-old male presents emergency Department with swelling on the left side of his cheek. Patient reports that he stayed in a group home house yesterday and reports lots of bugs in the house. Patient states he woke up this morning and he noticed a lesion on the left side of his face. Patient reports lesion is mildly tender but denies discharge. Patient denies fever, nausea, vomiting. Patient denies any numbness or tingling in the left side of the face. Patient denies left-sided paralysis. Patient also reports limited range of motion of his second metatarsal of the right foot. 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 Patient also reports limited range of motion has been a chronic issue but over the past 6 months it has slightly increased in severity. She denies taking medication to alleviate the symptoms. - Related Data Home Medications Medication Instructions Recorded Confirmed Gabapentin 800 mg PO TID 05/10/17 04/15/18 Baclofen [Lioresal] 20 mg PO TID 04/15/18 04/15/18 Methocarbamol [Robaxin] 1,500 mg PO TID 03/12/19 03/12/19 Previous Rx's Medication Instructions Recorded Cephalexin [Keflex] 500 mg PO Q6HR #40 cap 03/12/19 Ibuprofen [Motrin] 600 mg PO Q8HR PRN #30 tab 03/12/19 diphenhydrAMINE & Zinc Cream 1 applic TOPICAL TID #1 bottle 03/12/19 [Benadryl Cream] Allergies Allergy/AdvReac Type Severity Reaction Status Date / Time No Known Allergies Allergy Verified 04/15/18 12:28 Review of Systems ROS Statement: Those systems with pertinent positive or pertinent negative responses have been documented in the HPI. ROS Other: All systems not noted in ROS Statement are negative. Past Medical History Past Medical History: Dialysis, Hypertension, Renal Disease Additional Past Medical History / Comment(s): right leg nerve damage/pain, right foot "broken but healing", insomnia. Dialysis Sep 2016-Dec 2016.FX nose 04/28. Proteinuria History of Any Multi-Drug Resistant Organisms: None Reported Additional Past Surgical History / Comment(s): Rhinoplasty; pain procedures Past Anesthesia/Blood Transfusion Reactions: No Reported Reaction Past Psychological History: Anxiety, Depression Smoking Status: Current every day smoker Past Alcohol Use History: Abuse, Daily, Heavy Past Drug Use History: None Reported - Past Family History Father Family Medical History: Diabetes Mellitus Mother Family Medical History: No Reported History Additional Family Medical History / Comment(s): . General Exam - General Exam Comments Initial Comments: General: Well-developed well-nourished distress HEENT: Normocephalic/atraumatic, PERLL, pharynx erythema, swallowing well, EAC no erythema, no exudates, TM clear, no cervical lymph nodes Neck: Supple, nontender, trachea midline Chest/Lungs: Normal respirations, no signs of respiratory distress clear to au scultation bilaterally no wheezes, rales, rhonchi Cardiac: Regular rate and rhythm, normal S1-S2, no murmurs rubs or gallops Abdomen/GI: Soft nontender, bowel sounds equal or quadrant x4, no guarding, no rebound no CVA tenderness Musculoskeletal: Nontender, limited range of motion of the second metatarsal of the right foot, no erythema or edema, +2 posterior tibialis and distalis pedis bilaterally Skin: Warmth, erythematous papule on the left cheek with mild tenderness on palpation, no discharge from lesion. Neurologic: AAO x 3, CN 2-12 intact, Psychiatric: Mood and affect normal, judgment normal Limitations: no limitations Course Vital Signs 03/12/19 19:42 Temperature 98.4 F Pulse Rate 64 Respiratory 20 Rate Blood Pressure 131/76 O2 Sat by Pulse 98 Oximetry Medical Decision Making - Medical Decision Making Patient is a 42-year-old male presenting to emergency Department with a lesion to the left side of his face. Based on history and physical examination I suspect the lesion to be an ALLERGIC reaction to a bug bite. Patient will be p rescribed Benadryl cream and a 10 day course of Keflex. Patient advised to start using the Benadryl cream first and there is no improvement that he can start taking the Keflex. X-ray of the right foot is indicative of cortical irregularity and flattening of the second metatarsal head and avascular necrosis. Although the pain in the right foot seemed to be chronic issue due to an incident that occurred over 2 years ago. At this point patient is advised to follow with orthopedics for further treatment. Patient advised to follow-up with primary care regarding the lesion on his face. Strict return parameters were thoroughly discussed with patient who is understanding and agreeable. Case discussed with physician Disposition Clinical Impression: Bug bite Disposition: HOME SELF-CARE Condition: Stable Instructions (If sedation given, give patient instructions): Abscess (ED) Additional Instructions: Please take prescribed medication as directed. Please follow-up with primary care. Please return to emergency department if symptoms worsen. Prescriptions: diphenhydrAMINE & Zinc Cream [Benadryl Cream] 1 applic TOPICAL TID #1 bottle Cephalexin [Keflex] 500 mg PO Q6HR #40 cap Ibuprofen [Motrin] 600 mg PO Q8HR PRN #30 tab PRN Reason: Pain Is patient prescribed a controlled substance at d/c from ED?: No Referrals: Alexandro Sanabria MD [Primary Care Provider] - 1-2 days Naag Dickey MD [Medical Doctor] - 1-2 days Time of Disposition: 21:08
--- NOTE | 2019-03-12 21:37 | XR ---
EXAM: XR Right Foot Complete, 3 or More Views CLINICAL HISTORY: ITS.REASON XR Reason: Pain TECHNIQUE: Frontal, lateral and oblique views of the right foot. COMPARISON: No relevant prior studies available. FINDINGS: Bones/joints: There is flattening involving the head of the second metatarsal bone. There is also subchondral lucency at the head of the third metatarsal bone. No acute fracture. No dislocation. Soft tissues: Unremarkable. No radiopaque foreign body. IMPRESSION: Cortical irregularity and flattening of the head of the second metatarsal bone, and to a lesser extent the head of the third metatarsal bone, can be seen in avascular necrosis, i.e. Freiberg's infraction.
== END 2019-03-12 22:37 | disposition home or self-care (01) ==
LOC: EC 19:30
DX: S00.86XA Insect bite (nonvenomous) of other part of head, initial encounter (principal); M87.9 Osteonecrosis, unspecified; Z79.899 Other long term (current) drug therapy; F17.200 Nicotine dependence, unspecified, uncomplicated; W57.XXXA Bitten or stung by nonvenomous insect and other nonvenomous arthropods, initial encounter; Y92.009 Unspecified place in unspecified non-institutional (private) residence as the place of occurrence of the external cause
CPT/HCPCS: 99283

== ENCOUNTER → 2019-03-24 | Outpatient (CLI) | payer OTHER ==
[2019-03-24 10:30] LABS: Appearance,Urine Clear (Clear); Bilirubin,Urine Negative (Negative); Blood,Urine Negative (Negative); Color,Urine Yellow; Glucose,Urine (UA) Negative (Negative); Ketones,Urine Negative (Negative); Leukocyte Esterase,Urine Negative (Negative); Nitrite,Urine Negative (Negative); Protein,Urine Negative (Negative); Specific Gravity,Urine 1.017 (1.001-1.035); Urobilinogen,Urine <2.0 mg/dL (<2.0)
[2019-03-24 10:48] LABS: HCT 40.9 % (39.0-53.0); HGB 13.8 gm/dL (13.0-17.5); MCH 29.7 pg (25.0-35.0); MCHC 33.8 g/dL (31.0-37.0); MCV 87.7 fL (80.0-100.0); Mean Platelet Volume 6.9; Platelet Count 245 k/uL (150-450); RBC 4.66 m/uL (4.30-5.90); RDW 13.3 % (11.5-15.5); WBC 6.5 k/uL (3.8-10.6)
[2019-03-24 17:54] LABS: Iron Saturation 30.61 (15.00-50.00)
[2019-03-24 18:03] LABS: Vitamin D 25 Hydroxy 37.8 ng/mL (30.0-100.0)
[2019-03-24 18:05] LABS: African American GFR (CKD) 106.4 (60.0-200.0); Anion Gap 9.4 mmol/L (4.00-12.00); Calcium 9.4 mg/dL (8.7-10.3); Carbon Dioxide 25.6 mmol/L (21.6-31.8); Phosphorus 3.2 mg/dL (2.4-5.1); Potassium 4.4 mmol/L (3.5-5.5); Uric Acid 6.2 mg/dL (3.7-8.7)
[2019-03-24 18:47] LABS: Parathyroid Hormone Intact 40.4 pg/mL (14.0-72.0)
== END | disposition home or self-care (01) ==
LOC: LABWHC1 10:03
PROVIDERS: ATTEND Nurse Practitioner Family
DX: N17.9 Acute kidney failure, unspecified (principal); E55.9 Vitamin D deficiency, unspecified; D50.9 Iron deficiency anemia, unspecified
CPT/HCPCS: 36415; 80048; 81003; 82306; 82728; 83540; 83550; 83735; 83970; 84100; 84550; 85027

== ENCOUNTER → 2019-04-01 | Outpatient (CLI) | payer OTHER ==
[2019-04-01 12:30] LABS: HCT 39.2 % (39.0-53.0); HGB 13.1 gm/dL (13.0-17.5); MCH 30.3 pg (25.0-35.0); MCHC 33.4 g/dL (31.0-37.0); MCV 90.7 fL (80.0-100.0); Mean Platelet Volume 7.9; Platelet Count 216 k/uL (150-450); RBC 4.32 m/uL (4.30-5.90); WBC 9.4 k/uL (3.8-10.6)
[2019-04-01 20:27] LABS: HIV 1 AB Non-Reactive (Non-Reactive); HIV 2 AB Non-Reactive (Non-Reactive); HIV AB P24 Non-Reactive (Non-Reactive); HIV P24 AG Non-Reactive (Non-Reactive)
[2019-04-01 20:33] LABS: African American GFR (CKD) 120.8 (60.0-200.0); Albumin 4.1 g/dL (3.80-4.90); Albumin/Globulin Ratio 2.73 (1.60-3.17); Anion Gap 7.6 mmol/L (4.00-12.00); BUN/Creat Ratio 12.22 Ratio (12.00-20.00); Carbon Dioxide 25.4 mmol/L (21.6-31.8); Chol/HDL Ratio 4.63; Globulin 1.5 g/dL (1.6-3.3); LDL Cholesterol,Calculated 54.4 mg/dL (0.0-131.0); Non-African American GFR(CKD) 104.2 (60.0-200.0); Potassium 4.2 mmol/L (3.5-5.5); Total Bilirubin 0.2 mg/dL (0.2-1.2); Total Protein 5.6 g/dL (6.2-8.2); Uric Acid 5.5 mg/dL (3.7-8.7); VLDL Calculation 61.6 mg/dL (5.00-40.00)
[2019-04-01 20:46] LABS: Vitamin D 25 Hydroxy 32.1 ng/mL (30.0-100.0)
[2019-04-01 21:03] LABS: Hepatitis B Surface Antigen Non-Reactive (Non-Reactive); Hepatitis C IgG Antibody Non-Reactive (Non-Reactive)
== END | disposition home or self-care (01) ==
LOC: LABWHC1 12:09
PROVIDERS: ATTEND Family Medicine
DX: G62.9 Polyneuropathy, unspecified (principal); M51.36 Other intervertebral disc degeneration, lumbar region
CPT/HCPCS: 36415; 80053; 80061; 82306; 82607; 82746; 84402; 84403; 84443; 84550; 85027; 86780; 86803; 87340; 87390

== ENCOUNTER → 2019-05-06 | Outpatient (CLI) | payer OTHER ==
[2019-05-06 13:33] VITALS: RESP 18
--- NOTE | 2019-05-06 13:58 | P.PAINPG ---
Subjective Progress Note Date: 05/06/19 Assessment the follow-up visit for this 43 years old male with a chronic history of severe low back pain, with radiation to the right lower extremity, patient was diagnosed with lumbar radiculopathy and lumbar spondylosis with lumbar facet arthropathy, last year we have done lumbar epidural steroid injections 3, patient had partial and minimal benefit from it, and later on we did diagnostic medial branch block lumbar area at L3 ,L4 ,L5 , bilaterally, x2 patient reported that he had significant improvement of his low back pain after each diagnostic medial branch block, and the pain relief was for short-term only, patient was planning to do radiofrequency ablation of the median branch, but he was in carcerated , he was not able to come to the pain clinic to have the procedure done, patient currently complaining of severe low back pain with numbness and tingling sensation in the right lower extremity, he denies any motor or sensory deficits, also he is complaining of severe foot pain and he was seen by orthopedic surgeon, and he had MRI of the right foot done which showed that he had subchondral stress fracture or avascular necrosis of the tarsophalangeal joint, previously we have ordered an EMG/nerve conduction study patient reported that he had the procedure done by an urologist but we don't have any reports about that taste and will try to contact the neurologist to get the report Objective - Vital Signs Vital signs: Vital Signs Temp Pulse Resp 18 05/06/19 13:27 BP Pulse Ox Intake & Output 05/05/19 05/06/19 05/06/19 18:59 06:59 18:59 Weight 86.183 kg - Exam Physical Examinations : -Constitutiona : Cooperative , not in acute distress . -HEENT : nech : supple , no Lymphadenopathy , normal thyroid size . eyes : no ptosis , no icterus, no photophobia . - neurologic : Cranial nerve II to XII intact , no focal neurological deffecit . -psychatric : alert , oriented X 3 , appropriate affect , intact judgment and insight . -Lymphatic : no Lymphadenopathy . - musculoskeltal : Lumber spine moter stegnth lower extremities ,thigh and legs 5/5 Right side , 5/5 Left side deep tendon reflexes : normal Knee Jerk , normal ankle Jerk positive lumber facet Loading Test Range of motion of the lumbar spine Flexion 30 degrees, extension 10 degrees Assessment and Plan Plan: Assessment and plan:1-lumbar radiculopathy. 2-lumbar spondylosis with lumbar facet arthropathy and radiculopathy. Previously we have done diagnostic medial branch block lumbar area L3 /L4/L5 , Patient had significant improvement of his low back pain after each block , and he will be good candidate for RFA of the medial branch Do the right side first. Patient currently on Neurontin 800 mg 2 times a day he denies any side effects of the medication, is getting prescription refills from his PCP Recommend to continue the current medication Time with Patient: Less than 30 PQRS Measure Charge Sheet Measure #130: Documentation of Current Meds in Medical Chart: Patient's medications documented in chart Measure #226: Tobacco Use: Screen & Cessation Intervention: Pt screened for tobacco use AND intervention given Measure #111: Pneumonia Vaccination: Pneumococcal vaccine NOT administered or previously given Measure #47: Advance Care Plan: Advance care planning discussed & documented, pt chose/unable to give Measure #412: Opioid Treatment Agreement: No documentation of signed opioid treatment agreement Measure #408: Opioid Therapy Follow-up Evaluation: Patient had NO f/u eval minimum every 3 months during opioid therapy Measure #317: Preventitive Care & Scrn High Bld Press & F/U: Normal blood pressure, f/u not required Measure #128: Body Mass Index (BMI) Screening & Follow-up: BMI documented ABOVE normal parameters - f/u documented Measure #131: Pain Assessment & Follow-up: Pain positive & plan documented, Follow-up scheduled Measure #431: Unhealthy Alcohol Use Preventative Care & Scrn: Patient not identified as an unhealthy alcohol user PQRS Narrative: Smoking Status Current every day smoker Pain Intensity [Right Lower 5 Back] Hx Alcohol Use (MH) Yes: "occational" Home Medications: Ambulatory Orders Gabapentin 800 mg PO TID 05/10/17 Ibuprofen [Motrin] 200 mg PO Q8HR PRN 05/06/19 oxyCODONE-APAP 5-325MG [Percocet 5-325 mg] 1 tab PO PRN 05/06/19 Controlled Substance Measures - Controlled Substance Measures Is patient prescribed a controlled substance at discharge?: No
== END | disposition home or self-care (01) ==
LOC: PNWHC3 12:06
PROVIDERS: ATTEND Specialist
DX: G89.29 Other chronic pain (principal); M47.26 Other spondylosis with radiculopathy, lumbar region; M46.96 Unspecified inflammatory spondylopathy, lumbar region; F17.200 Nicotine dependence, unspecified, uncomplicated
CPT/HCPCS: 99211

== ENCOUNTER 2019-05-21 08:42 | Day surgery (SDC) | payer OTHER ==
[2019-05-16 15:46] VITALS: BMI 25.7
[2019-05-21 08:59] VITALS: RESP 18; TEMP 98.3
[2019-05-21] MEDS ORDERED: LIDOCAINE 1% 20 ML VIAL (10MG/ML) FOR IV START INTRADERMA ONE (08:59)
[2019-05-21] MEDS ORDERED: LACTATED RINGERS 1,000 ML IV ONE (08:59)
[2019-05-21] MEDS ORDERED: IV FLUID CONTINUATION 1,000 ML IV ONE ×2 (10:20)
--- NOTE | 2019-05-21 10:23 | P.PCN ---
Date of Procedure: 05/21/19 Procedure(s) Performed: PREOPERATIVE DIAGNOSIS: Lumbar Spondylosis POSTOPERATIVE DIAGNOSIS: Same PROCEDURES: Radiofrequency ablation of the L2, L3, L4, L5 medial branches for facets L3-4, L4-5 and L5-S1 with fluoroscopic guidance on the right side SURGEON: Nohemi Okeefe MD. ANESTHESIA: Lidocaine 1% 5 mL, Moderate sedation with intravenous Versed 3mg and fentanyl 150mcg, sedation time 23 minutes EBL: Minimal Fluoroscopy was used for the procedure and images were saved in the radiology portion of the chart. PROCEDURE INDICATION: The patient with low back pain secondary to lumbar facet arthropathy who had more than 50% relief of pain with previous diagnostic lumbar medial branch block X2. PROCEDURE DESCRIPTION / TECHNIQUE: The patient was seen and identified in the preoperative area. Risks, benefits, complications, including but not limited to risk of infection ,bleeding , allergic reactions to the medications and incomplete pain relief , and alternatives were discussed with the patient, the patient agreed to proceed with the procedure and signed the consent. IV was started. The operative site was marked. Patient was taken to the OR and time out was completed. The patient was placed in the prone position on the procedure table. The lumbar area was prepped and draped in the usual sterile fashion. . Vital signs were closely monitored during the procedure .IV sedation was used during the procedure to decrease patients anxiety. Using AP and then oblique fluoroscopy, the "eye of the Chano dog" corresponding to the connection between the superior and transverse articular processes of the L3, L4 and L5 as well as the sacral ala were identified, marked, and localized with 1% lidocaine. Subsequently, an 18 guage 100 mm radiofrequency cannula with a 10-mm active tip was advanced guided by fluoroscopy to the identified target at each site. Needle positioning was confirmed on AP, oblique and lateral fluoroscopy. Motor testing at 2.5 Hz was done with paraspinal muscle stimulation only, and no radicular symptoms down the legs. Then 1 mL of 4% lidocaine was injected in each site. Radiofrequency thermocoagulation at 80 degrees celsius for 90 seconds was then performed. [place] were removed. Sterile dressings were applied. COMPLICATIONS: No acute complications. DISPOSITION / PLANS: The patient was placed in a supine position and transferred to the recovery area in a stable condition for observation and was discharged from the recovery room after meeting discharge criteria. Home discharge instructions given to the patient by the staff. The patient will follow up for left-sided procedure in 2-4 weeks. Comments: Of note, during the procedure, the patient was asking for dilaudid as the "medications were not working". I informed him that we do not administer dilaudid for this procedure and gave him additional doses of fentanyl and m edazepam. His vital signs remained stable, not supportive of his statement of unbearable pain. He was demanding opioids on discharge and was informed that opioids were not indicated for the recovery from this procedure. He asked to speak to the word processing supervisor and was directed to a patient solar sales representative. He was asking for a different physician and was informed by the nurses that he cannot select physicians in our facility. I instructed him to use Tylenol, ibuprofen and ice for the post-procedural period. I also instructed the PACU nurses to administer Toradol IV for post-procedural pain.
[2019-05-21 10:25] VITALS: BP 122/78; PULSE 79
[2019-05-21] MEDS ORDERED: KETOROLAC 30 MG/ML 1 ML VIAL IVP ONE (10:48)
--- NOTE | 2019-05-21 11:26 | FL ---
Fluoroscopy INDICATION: Pain FINDINGS: Fluoroscopy time: 13 seconds. Images obtained: 10. IMPRESSIONS: 1. Documentation of fluoroscopy.
== END 2019-05-21 11:43 | disposition home or self-care (01) ==
LOC: ORPAIN 08:42
PROVIDERS: ATTEND Anesthesiology
DX: G89.29 Other chronic pain (principal); M47.26 Other spondylosis with radiculopathy, lumbar region; F17.210 Nicotine dependence, cigarettes, uncomplicated; Z79.899 Other long term (current) drug therapy
CPT/HCPCS: 64635; 64636 ×2; J2250; J3010; J1885; 99152; 99153

== ENCOUNTER → 2019-06-12 | Outpatient (CLI) | payer OTHER ==
[2019-06-12 08:44] LABS: HCT 46.7 % (39.0-53.0); HGB 15.6 gm/dL (13.0-17.5); MCH 30.7 pg (25.0-35.0); MCHC 33.5 g/dL (31.0-37.0); MCV 91.6 fL (80.0-100.0); Mean Platelet Volume 6.1; Platelet Count 252 k/uL (150-450); RDW 12.9 % (11.5-15.5); WBC 11.2 k/uL (3.8-10.6)
[2019-06-12 10:27] LABS: Appearance,Urine Clear (Clear); Bilirubin,Urine Negative (Negative); Blood,Urine Negative (Negative); Color,Urine Yellow; Glucose,Urine (UA) Negative (Negative); Ketones,Urine Negative (Negative); Leukocyte Esterase,Urine Negative (Negative); Nitrite,Urine Negative (Negative); PH, Urine 6.5 (5.0-8.0); Protein,Urine Negative (Negative); Urobilinogen,Urine <2.0 mg/dL (<2.0)
[2019-06-12 17:40] LABS: Iron Saturation 33.7 (15.00-50.00)
[2019-06-12 17:50] LABS: African American GFR (CKD) 94.8 (60.0-200.0); Anion Gap 8.1 mmol/L (4.00-12.00); BUN/Creat Ratio 13.64 Ratio (12.00-20.00); Calcium 9.7 mg/dL (8.7-10.3); Carbon Dioxide 26.9 mmol/L (21.6-31.8); Magnesium 1.8 mg/dL (1.5-2.4); Phosphorus 2.9 mg/dL (2.4-5.1); Potassium 4.1 mmol/L (3.5-5.5); Uric Acid 4.8 mg/dL (3.7-8.7)
[2019-06-12 17:53] LABS: Ferritin 68.2 ng/mL (22.0-322.0); Vitamin D 25 Hydroxy 28.1 ng/mL (30.0-100.0)
== END | disposition home or self-care (01) ==
LOC: LABWHC1 07:59
PROVIDERS: ATTEND Nurse Practitioner Family
DX: N17.9 Acute kidney failure, unspecified (principal); E55.9 Vitamin D deficiency, unspecified; N39.0 Urinary tract infection, site not specified; M10.9 Gout, unspecified; D50.9 Iron deficiency anemia, unspecified
CPT/HCPCS: 36415; 80048; 81003; 82306; 82728; 83540; 83550; 83735; 83970; 84100; 84550; 85027

== ENCOUNTER → 2019-06-17 | Outpatient (CLI) | payer OTHER ==
--- NOTE | 2019-06-17 14:49 | US ---
EXAMINATION TYPE: US scrotum with doppler. Grayscale and color Doppler Duplex imaging performed of lee correia scrotum. DATE OF EXAM: 06/17/2019 COMPARISON: NONE CLINICAL HISTORY: N50.89 Mass L testes. EXAM MEASUREMENTS: TESTICLES: Right Testicle: 3.9 x 2.1 x 3.4 cm Left Testicle: 4.6 x 2.1 x 3.0 cm EPIDIDYMIS HEAD: Right Epididymis: 1.9 cm Left Epididymis: 1.2 cm Doppler performed to assess for testicular vascularity; good bilateral color flow and waveforms are s een. There is no evidence of testicular torsion. Presence of hydroceles: yes left 0.5 x 0.5 x 0.6 cm Presence of varicoceles: Yes, left IMPRESSION: Trace left hydrocele and left-sided varicocele. No intratesticular masses seen of either testicle.
== END | disposition home or self-care (01) ==
LOC: RADUSWWP 13:25
PROVIDERS: ATTEND Family Medicine
DX: N50.89 Other specified disorders of the male genital organs (principal)
CPT/HCPCS: 76870; 93975

== ENCOUNTER → 2019-07-11 | Outpatient (CLI) | payer OTHER ==
--- NOTE | 2019-07-13 21:38 | CT ---
EXAMINATION TYPE: CT sinus wo con DATE OF EXAM: 07/11/2019 COMPARISON: 04/29/2017 HISTORY: 43-year-old male Sinusitis. CT DLP: 619 mGycm Automated exposure control for dose reduction was used. TECHNIQUE: Noncontrast axial views of the paranasal sinuses were obtained. Coronal reconstructions pe rformed. FINDINGS: PARANASAL SINUSES: Mild mucosal thickening throughout the ethmoid air cells. There is trace mucosal thickening extending into the left frontal sinus. Maxillary and sphenoid sinuses appear well pneumatized. There is no air-fluid level. Reactive philipp- osteogenesis is not seen. There is no destruction of the osseous flores of the paranasal sinuses. THE NASAL CAVITY: Suspect prior bilateral medial maxillary antrectomies. The osteomeatal complexes are patent. The nasal septum is not significantly deviated. Opacified left-sided kayla bullosa. The imaged brain and orbits are normal in appearance. Mastoid air cells and middle ear cavities are well pneumatized. Reformatted images confirm above findings. IMPRESSION: 1. Mild chronic ethmoid sinus disease. Trace mucosal thickening left frontal sinus. 2. There appear to be prior maxillary antrectomies. Clinically correlate. 3. Opacified left-sided kayla bullosa.
== END | disposition home or self-care (01) ==
LOC: RADCTMAIN 15:24
PROVIDERS: ATTEND Otolaryngology
DX: J32.2 Chronic ethmoidal sinusitis (principal); J34.89 Other specified disorders of nose and nasal sinuses
CPT/HCPCS: 70486

== ENCOUNTER 2019-09-18 05:35 | Day surgery (SDC) | payer OTHER ==
[2019-09-15 14:18] VITALS: BMI 25.0
[~2019-09-18 05:35] MED LIST changes: -LACTATED RINGERS 1,000 ML IV SCH; +Pre Op ABX Message 1 EACH MISC MISCELLANE ONE
[2019-09-18] MEDS ORDERED: SCOPOLAMINE 1.5MG/72HR PATCH TRANSDERM ONE (06:06)
[2019-09-18] MEDS ORDERED: DEXAMETHASONE SOD PHOSPHATE 10 MG/ML 1 ML VIAL IV ONE (06:06)
[2019-09-18] MEDS ORDERED: ONDANSETRON 4 MG/2 ML VIAL IVP ONE (06:06)
[2019-09-18] MEDS ORDERED: MIDAZOLAM 2 MG/2 ML VIAL IV PRN (06:06)
[2019-09-18] MEDS ORDERED: LACTATED RINGERS 1,000 ML IV SCH (06:06)
[2019-09-18] MEDS ORDERED: HYDROmorphone 0.5 MG/0.5 ML SYRINGE IVP PRN (06:06)
[2019-09-18 06:19] VITALS: RESP 16; TEMP 98.5
[2019-09-18] MEDS ORDERED: LIDOCAINE 1% 20 ML VIAL (10MG/ML) FOR IV START INTRADERMA ONE (06:28)
[2019-09-18] MEDS ORDERED: fentaNYL (PF) 50 MCG/ML 2 ML AMP IVP ONE (06:58)
--- NOTE | 2019-09-18 07:22 | P.ANPRN ---
Procedure Note - Anesthesia - Nerve Block Performed Right Popliteal Single Time Out Performed: Yes Date of Procedure: 09/18/19 Procedure Start Time: 06:58 Procedure Stop Time: 07:05 Location of Patient: PreOp Indication: Acute Post-Operative Pain, Dx/Pain Location, Requested by Surgeon Sedation Type: Sedate with meaningful contact maintained Position: Left Lateral Catheter: None Needle Types: Pajunk Needle Gauge: 21 Ultrasound used to visualize needle placement: Yes Ultrasound used to observe medication spread: Yes Injectate: 0.5% Ropivacaine (see comment for volume) (20ml) Blood Aspirated: No Pain Paresthesia on Injection Noted: No Resistance on Injection: Normal Image Stored and Saved: Yes Events: Uneventful and Well Tolerated
[2019-09-18] MEDS ORDERED: DEXAMETHASONE SOD PHOSPHATE 4 MG/ML 1 ML VIAL ONE (07:26)
[2019-09-18] MEDS ORDERED: PROPOFOL 10 MG/ML 20 ML VIAL IV ONE (07:26)
[2019-09-18] MEDS ORDERED: ROPIVACAINE 5 MG/ML 30 ML VIAL ONE (07:26)
[2019-09-18] MEDS ORDERED: MIDAZOLAM 2 MG/2 ML VIAL ONE (07:26)
[2019-09-18] MEDS ORDERED: fentaNYL (PF) 50 MCG/ML 2 ML AMP ONE (07:26)
[2019-09-18] MEDS ORDERED: LACTATED RINGERS 1,000 ML IV ONE (08:01)
--- NOTE | 2019-09-18 08:31 | P.OP ---
Date of Procedure: 09/18/19 Preoperative Diagnosis: 1. Right second MTP AVN with collapse 2. History of alcohol abuse 3. History of chronic narcotic pain medication dependence Postoperative Diagnosis: Same Procedure(s) Performed: Right second MTP implant arthroplasty Anesthesia: regional, other (Sedation) Surgeon: Naga Dickey Hand Launderer #1: Ron Pablo Estimated Blood Loss (ml): 5 IV fluids (ml): 500 Pathology: none sent Condition: stable Disposition: PACU Indications for Procedure: The patient is a very pleasant 43-year-old male with a medical history significant for previous alcohol abuse and chronic narcotic dependence who presented with right second MTP AVN and collapse. He was initially managed nonsurgically with cortisone injections, metatarsal pads, and she modifications ultimately diminishing relief. He requested surgery. We discussed the challenges addressing lesser MTP AVN and collapse surgically. My recommendation was to debride the joint and use Cartiva as an interpositional graft. The patient understands the potential risks and complications of this including but not limited to risk of infection, damage to local blood vessels or nerves, continued or worsened pain, collapse, subsidence, for further surgery, DVT, PE, generalized dissatisfaction with the surgical outcome, and possibly loss of life or limb. He provided his verbal and written consent to go forward with surgery also acknowledging the risk for other less common problems. Description of Procedure: The patient was identified in preoperative holding and the correct right foot was marked with my initials. I reviewed the consent form with the patient and all of his questions were answered. The patient was then given a block by anesthesia. He was brought to the operating room and positioned on the OR table where a sedation and antibiotics were given. A tourniquet was applied to the proximal aspect of the right leg. The right leg was then prepped and draped in the standard sterile fashion. Prior to starting surgery timeout was performed identifying the correct patient, operative extremity, and procedure. The patient's leg was then elevated, exsanguinated with an Esmarch bandage, and the tourniquet was inflated to 250 mmHg. I began by outlining a longitudinal incision centered directly over the dorsal aspect of the second MTP joint. Skin incision was made with a scalpel. Dissection was carried down carefully to subcutaneous tissue. The extensor tendon sheath was incised and the tendon was retracted. The capsule was incised longitudinally in line with the skin incision exposing the joint. The synovium was markedly inflamed and the inflamed, redundant synovium was sharply debrided. On inspection of the second metatarsal head there was a large loose flap of articular cartilage with underlying collapse and exposed subchondral bone. The cartilage was sharply removed with a scalpel. The metatarsal head was contoured using a ronguer. Metatarsal head was measured and I elected to use an 8 mm implant. The sizing guide for an 8 mm plug was placed over the metatarsal head and a guidepin was placed on the central aspect of the metatarsal. A reamer was used to create a bony cavity for an 8 mm implant. The K wire was removed and the bony vault was inspected. It appeared to have a nice bony rim. The wound was thoroughly irrigated and an 8 mm implant was press-fit into the bony cavity. Following implantation felt stable. The joint was brought through range of motion and had a nice smooth arc with no impingement. The wound was then thoroughly irrigated and closed in layers. A sterile dressing was applied. The patient was awoken from his anesthetic, transferred from the OR table to a gurney, and brought to recovery have entire procedure well. Plan: The patient is going to discharge home as an outpatient. He is to remain nonweightbearing on his operative leg until the block wears off. I recommended at least 48 hours of nonweightbearing in a boot. In 48 hours he can change his surgical dressing. The patient will be given a short amount of pain medication and will then contact his painter decorator to discuss further pain requirements should he feel the need for continued narcotic pain medication.
[2019-09-18] MEDS ORDERED: MEPERIDINE 50 MG/ML SYRINGE IVP ONE (08:39)
[2019-09-18 09:35] VITALS: BP 129/84; PULSE 91
== END 2019-09-18 10:25 | disposition home or self-care (01) ==
LOC: OR 05:35
PROVIDERS: ATTEND Orthopaedic Surgery
DX: M87.874 Other osteonecrosis, right foot (principal); F10.11 Alcohol abuse, in remission; F11.11 Opioid abuse, in remission; I10 Essential (primary) hypertension; F32.9 Major depressive disorder, single episode, unspecified; R45.0 Nervousness; G62.9 Polyneuropathy, unspecified; F17.210 Nicotine dependence, cigarettes, uncomplicated; Z83.3 Family history of diabetes mellitus; Z82.49 Family history of ischemic heart disease and other diseases of the circulatory system; Z79.899 Other long term (current) drug therapy; Z79.1 Long term (current) use of non-steroidal anti-inflammatories (NSAID); Z79.891 Long term (current) use of opiate analgesic
CPT/HCPCS: 64445; 76942; 28899; C1713; J2250; J1100 ×2; J2175; J2405; J3010; J2795; J2704

== ENCOUNTER → 2020-02-13 | Outpatient (CLI) | payer OTHER ==
--- NOTE | 2020-02-13 08:50 | CT ---
EXAMINATION TYPE: CT sinus wo con DATE OF EXAM: 02/13/2020 COMPARISON: 07/11/2019 HISTORY: chronic sinusitis CT DLP: 673.7 mGycm. Automated Exposure Control for Dose Reduction was Utilized. TECHNIQUE: CT scan of the sinuses is performed without contrast, axial images are obtained, coronal r eformatted images are also reviewed. FINDINGS: PARANASAL SINUSES: Mild mucosal thickening throughout the ethmoid air cells. There is trace mucosal t hickening extending into the left frontal sinus. Mild mucosal thickening noted involving the maxillar y sinuses. There is mild frontal sinus mucosal thickening. Sphenoid sinus of normal aeration. No air- fluid levels. There is no destruction of the osseous flores of the paranasal sinuses. NASAL CAVITY: Suspect prior bilateral medial maxillary antrectomies. The osteomeatal complexes are pa tent. The nasal septum is not significantly deviated. Opacified left-sided kayla bullosa. The imaged brain and orbits are normal in appearance. Mastoid air cells and middle ear cavities are well pneuma tized. Reformatted images confirm above findings. Chronic nasal bone deformities noted. IMPRESSION: 1. Mild chronic ethmoid, frontal and maxillary sinus disease.
== END | disposition home or self-care (01) ==
LOC: RADCTMAIN 08:02
PROVIDERS: ATTEND Otolaryngology
DX: J32.0 Chronic maxillary sinusitis (principal); J34.89 Other specified disorders of nose and nasal sinuses
CPT/HCPCS: 70486

== ENCOUNTER → 2020-02-16 | Outpatient (CLI) | payer OTHER | END | disposition home or self-care (01) | LOC: LABPAT 09:29 | PROVIDERS: ATTEND Otolaryngology | DX: Z01.818 Encounter for other preprocedural examination (principal) ==

== ENCOUNTER → 2020-03-22 | Outpatient (CLI) | payer OTHER ==
--- NOTE | 2020-03-22 15:15 | XR ---
Left knee HISTORY: Trauma 7 days prior, pain 2 views the left knee, correlation to prior exam 02/14/2018 Bone mineralization, joint spaces and alignment are maintained. Suprapatellar increased density is pr esent. IMPRESSION: Correlate for joint effusion.
== END | disposition home or self-care (01) ==
LOC: RADXRMAIN 14:18
PROVIDERS: ATTEND Internal Medicine
DX: M25.562 Pain in left knee (principal)

== ENCOUNTER 2020-04-20 11:38 | Emergency (ER) | payer OTHER ==
[2020-04-20 11:54] VITALS: BP 106/70; PULSE 77; RESP 18; TEMP 97.9
[2020-04-20] MEDS ORDERED: SULFAMETHOX-TMP 800-160MG 1 EACH TAB PO STA (12:12)
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
== END 2020-04-20 12:58 | disposition left against medical advice (07) ==
LOC: EC 11:38
DX: S05.11XA Contusion of eyeball and orbital tissues, right eye, initial encounter (principal); L03.211 Cellulitis of face; M54.5 Low back pain; M79.671 Pain in right foot; F41.9 Anxiety disorder, unspecified; G47.00 Insomnia, unspecified; F10.129 Alcohol abuse with intoxication, unspecified; Y90.9 Presence of alcohol in blood, level not specified; F17.200 Nicotine dependence, unspecified, uncomplicated; Z79.899 Other long term (current) drug therapy; Z79.891 Long term (current) use of opiate analgesic; Z53.29 Procedure and treatment not carried out because of patient's decision for other reasons; Y04.2XXA Assault by strike against or bumped into by another person, initial encounter
CPT/HCPCS: 70450; 70486; 99284

== ENCOUNTER → 2020-05-04 | Outpatient (CLI) | payer OTHER ==
[2020-05-04 13:07] LABS: Basophils # (A) 0.1 k/uL (0-0.2); Basophils % (A) 1 %; Eosinophils # (A) 0.3 k/uL (0-0.7); Eosinophils % (A) 4 %; HCT 44.5 % (39.0-53.0); HGB 14.7 gm/dL (13.0-17.5); Lymphocytes # (A) 2.1 k/uL (1.0-4.8); Lymphocytes % (A) 26 %; MCH 31.6 pg (25.0-35.0); MCHC 33.1 g/dL (31.0-37.0); MCV 95.4 fL (80.0-100.0); Mean Platelet Volume 7.3; Monocytes # (A) 0.5 k/uL (0-1.0); Monocytes % (A) 6 %; Neutrophils # (A) 4.9 k/uL (1.3-7.7); Neutrophils % (A) 61 %; Platelet Count 235 k/uL (150-450); RBC 4.66 m/uL (4.30-5.90); RDW 12.8 % (11.5-15.5)
[2020-05-04 19:03] LABS: Estradiol 33.8 pg/mL; Follicle Stimulating Hormone 7.1 mIU/mL; Luteinizing Hormone 7.1 mIU/mL; Prolactin 6.5 ng/mL (2.1-17.7)
== END | disposition home or self-care (01) ==
LOC: LABWHC1 11:48
PROVIDERS: ATTEND Internal Medicine
DX: Z01.818 Encounter for other preprocedural examination (principal); E29.1 Testicular hypofunction
CPT/HCPCS: 83001; 83002; 82670; 85025; 84146; 84402; 84403; 36415; U0003; C9803

== ENCOUNTER 2020-05-21 16:56 | Observation (INO) | payer OTHER ==
[~2020-05-21 16:56] MED LIST changes: -Pre Op ABX Message 1 EACH MISC MISCELLANE ONE; +THIAMINE 100 MG TAB PO SCH
[2020-05-21] MEDS ORDERED: ZIPRASIDONE 20 MG VIAL IM STA ×2 (17:42→18:19)
[2020-05-21] MEDS ORDERED: LORazepam 2 MG/ML INJ IM STA (17:42)
[2020-05-21] MEDS ORDERED: SODIUM CHLORIDE 0.9% 1,000 ML IV STA (17:56)
[2020-05-21 18:16] LABS: Basophils # (A) 0.1 k/uL (0-0.2); Basophils % (A) 1 %; Eosinophils # (A) 0.2 k/uL (0-0.7); Eosinophils % (A) 2 %; HCT 47.6 % (39.0-53.0); HGB 15.3 gm/dL (13.0-17.5); Lymphocytes % (A) 29 %; MCH 30.5 pg (25.0-35.0); MCHC 32.2 g/dL (31.0-37.0); MCV 94.7 fL (80.0-100.0); Mean Platelet Volume 8.8; Monocytes # (A) 0.5 k/uL (0-1.0); Monocytes % (A) 5 %; Neutrophils # (A) 6.1 k/uL (1.3-7.7); Neutrophils % (A) 60 %; Platelet Count 192 k/uL (150-450); RBC 5.02 m/uL (4.30-5.90); RDW 13.4 % (11.5-15.5); WBC 10.2 k/uL (3.8-10.6)
[2020-05-21 18:17] LABS: Appearance,Urine Clear (Clear); Bilirubin,Urine Negative (Negative); Blood,Urine Negative (Negative); Color,Urine Colorless; Glucose,Urine (UA) Negative (Negative); Ketones,Urine Negative (Negative); Leukocyte Esterase,Urine Negative (Negative); Nitrite,Urine Negative (Negative); PH, Urine 5.5 (5.0-8.0); Protein,Urine Negative (Negative); Specific Gravity,Urine 1.003 (1.001-1.035); Urobilinogen,Urine <2.0 mg/dL (<2.0)
[2020-05-21 18:36] LABS: Amphetamine Screen,Urine Not Detected (NotDetected); Barbiturate Screen,Urine Not Detected (NotDetected); Benzodiazepines Screen,Urine Not Detected (NotDetected); Cocaine Screen,Urine Not Detected (NotDetected); Methadone Screen, Urine Not Detected (NotDetected); Opiate Screen,Urine Not Detected (NotDetected); Oxycodone Screen, Urine Not Detected (NotDetected); Phencyclidine Screen,Urine Not Detected (NotDetected); Tricyclic Antidepressant,Urine Not Detected (NotDetected); Urn Cannabinoid Scrn Not Detected (NotDetected)
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
[2020-05-21] MEDS ORDERED: DIPH,PERTUS(ACELL)TETVAC-LF 0.5 ML VIAL IM ONE (19:24)
--- NOTE | 2020-05-21 19:45 | CT ---
EXAMINATION TYPE: CT brain cspine wo con DATE OF EXAM: 05/21/2020 COMPARISON: CT brain 04/20/2020 HISTORY: fall Headache. Neck pain CT DLP: 1547.9 mGycm Automated exposure control for dose reduction was used. Ventricles have normal size. There is no mass effect nor midline shift. There is no sign of intracran ial hemorrhage. Calvarium is intact. Cervical vertebra have fairly normal alignment. Disc spaces show slight narrowing at C4-5. There is n o compression fracture. Facet joints are intact. Prevertebral soft tissues are intact. There is thania l aeration of the mastoid sinuses. Occipital bone is intact. IMPRESSION: Negative CT scan of the brain. No change. No significant abnormality of the cervical spine. No fracture.
[2020-05-21 19:50] LABS: ALT 43 U/L (4-49); AST 52 U/L (17-59); African American GFR (CKD) >90 (>60 ml/min/1.73 sqM); Albumin 4.4 g/dL (3.5-5.0); Alkaline Phosphatase 110 U/L (38-126); Amylase 126 U/L (30-110); Anion Gap 11 mmol/L; Blood Urea Nitrogen 8 mg/dL (9-20); Calcium 9.4 mg/dL (8.4-10.2); Carbon Dioxide 21 mmol/L (22-30); Chloride 119 mmol/L (98-107); Glucose 115 mg/dL (74-99); Magnesium 2.1 mg/dL (1.6-2.3); Non-African American GFR(CKD) >90 (>60 ml/min/1.73 sqM); Potassium 3.9 mmol/L (3.5-5.1); Sodium 151 mmol/L (137-145); Total Bilirubin 0.2 mg/dL (0.2-1.3); Total Protein 7.2 g/dL (6.3-8.2)
[2020-05-21] MEDS ORDERED: NALOXONE 0.4 MG/ML 1 ML VIAL IV PRN (21:36)
[2020-05-21] MEDS ORDERED: LORazepam 2 MG/ML INJ IV PRN ×3 (21:37)
[2020-05-21] MEDS ORDERED: SODIUM CHLORIDE 0.9% 1,000 ML IV SCH (21:45)
[2020-05-21] MEDS ORDERED: THIAMINE 100 MG/ML 2 ML VIAL IM ONE (22:00)
[2020-05-22 05:48] VITALS: BP 126/80; PULSE 81; RESP 14; TEMP 97.7
== END 2020-05-22 07:50 | disposition left against medical advice (07) ==
LOC: EC 16:56 → 4SSUR 22:09
PROVIDERS: ADMIT Internal Medicine; ATTEND Internal Medicine
DX: F10.229 Alcohol dependence with intoxication, unspecified (principal); S00.81XA Abrasion of other part of head, initial encounter; E87.0 Hyperosmolality and hypernatremia; Z53.29 Procedure and treatment not carried out because of patient's decision for other reasons; I10 Essential (primary) hypertension; G57.91 Unspecified mononeuropathy of right lower limb; R26.89 Other abnormalities of gait and mobility; G47.00 Insomnia, unspecified; M51.9 Unspecified thoracic, thoracolumbar and lumbosacral intervertebral disc disorder; G62.9 Polyneuropathy, unspecified; F41.9 Anxiety disorder, unspecified; F32.9 Major depressive disorder, single episode, unspecified; F17.200 Nicotine dependence, unspecified, uncomplicated; Y90.8 Blood alcohol level of 240 mg/100 ml or more; Z78.1 Physical restraint status; Z87.448 Personal history of other diseases of urinary system; Z79.899 Other long term (current) drug therapy; Z79.891 Long term (current) use of opiate analgesic; Z87.81 Personal history of (healed) traumatic fracture; Z98.890 Other specified postprocedural states; W19.XXXA Unspecified fall, initial encounter
CPT/HCPCS: 90471; 96372; 99285; 36415; 80053; 82150; 83690; 83735; 85025; 81003; 80306; 72125; 70450; 90715; G0378 ×2; G0480; J2060; J3411; J3486; 80320

== ENCOUNTER 2020-06-10 15:36 | Emergency (ER) | payer OTHER ==
[2020-06-10 15:41] VITALS: BP 136/82; PULSE 108; RESP 18; TEMP 97.7
[2020-06-10] MEDS ORDERED: SODIUM CHLORIDE 0.9% 1,000 ML IV STA ×2 (15:54→16:35)
--- NOTE | 2020-06-10 16:00 | ED ---
General Adult HPI - General Chief complaint: Recheck/Abnormal Lab/Rx Stated complaint: Abn labs Time Seen by Provider: 06/10/20 15:43 Source: patient, RN notes reviewed Mode of arrival: ambulatory Limitations: no limitations - History of Present Illness Initial comments: Patient is a pleasant 44-year-old male presenting to the emergency department with abnormal lab results. Patient states the past few days he has had some discomfort of his left lower abdomen. Patient states at times it would radiate to the upper abdomen are sometimes up to the chest or shoulder. Patient states he has been symptom-free elevated today. Patient omits to feeling somewhat constipated recently. Patient did see his doctor yesterday and have blood work done and was advised to come to the emergency department. did fax over blood work with d-dimer elevation of 2.4. Patient also had a lipase level of 238 and amylase of 192. Patient is irritated that his doctor told him to come in. - Related Data Home Medications Medication Instructions Recorded Confirmed Gabapentin 800 mg PO TID 05/10/17 09/18/19 Ibuprofen [Motrin] 200 mg PO Q8HR PRN 05/06/19 09/18/19 Fenofibrate (Unknown Dose) 1 dose PO DAILY 05/16/19 09/18/19 Vitamin D (Unknown Dose) 1 dose PO QMONTH 05/16/19 09/18/19 Ergocalciferol [Vitamin D2] 50,000 unit PO Q30D 09/15/19 09/18/19 Muscle Relaxer 1 tab PO DAILY 09/15/19 09/18/19 oxyCODONE HCL [OxyIR] 5 mg PO TID 09/15/19 09/18/19 Previous Rx's Medication Instructions Recorded Aspirin 325 mg PO DAILY #14 tab 09/18/19 Docusate [Colace] 100 mg PO BID #60 capsule 09/18/19 Hydrocodone/Acetaminophen [[place] 1 tab PO Q4-6H PRN #18 tab 09/18/19 5-325] Allergies Allergy/AdvReac Type Severity Reaction Status Date / Time No Known Allergies Allergy Verified 06/10/20 15:41 Review of Systems ROS Statement: Those systems with pertinent positive or pertinent negative responses have been documented in the HPI. ROS Other: All systems not noted in ROS Statement are negative. Constitutional: Denies: fever Eyes: Denies: eye pain ENT: Denies: ear pain Respiratory: Denies: cough, dyspnea Cardiovascular: Reports: as per HPI Endocrine: Denies: fatigue Gastrointestinal: Reports: as per HPI, abdominal pain (None at this time. None today.), constipation. Denies: nausea, vomiting, diarrhea Genitourinary: Denies: dysuria, hematuria Musculoskeletal: Denies: back pain Skin: Denies: rash Neurological: Denies: weakness Past Medical History Past Medical History: Hypertension, Neurologic Disorder, Renal Disease Additional Past Medical History / Comment(s): right leg nerve damage/pain, right foot pain- states limping-Sees Dr. Dickey, insomnia. Dialysis Sep 2016-Dec 2016. hx FX nose Proteinuria, low back pain with numbness tingling right leg, 5 ruptured disc, neuropathy History of Any Multi-Drug Resistant Organisms: None Reported Past Surgical History: No Surgical Hx Reported Additional Past Surgical History / Comment(s): Rhinoplasty; pain procedures, states scraping of sinus Past Anesthesia/Blood Transfusion Reactions: No Reported Reaction Past Psychological History: Anxiety, Depression Smoking Status: Current every day smoker Past Alcohol Use History: Occasional Past Drug Use History: None Reported - Past Family History Mother Family Medical History: No Reported History Additional Family Medical History / Comment(s): . General Exam Limitations: no limitations General appearance: alert, in no apparent distress Head exam: Present: normocephalic Eye exam: Present: normal appearance, PERRL Neck exam: Present: normal inspection Respiratory exam: Present: normal lung sounds bilaterally. Absent: chest wall tenderness Cardiovascular Exam: Present: regular rate, normal rhythm Expanded Peripheral pulses: 2+: Radial (R), Radial (L), Posterior Tibialis (R), Posterior Tibialis (L) GI/Abdominal exam: Present: soft, normal bowel sounds. Absent: distended, tenderness, guarding, rebound, rigid, pulsatile mass Extremities exam: Present: normal inspection Neurological exam: Present: alert Psychiatric exam: Present: normal affect, normal mood Skin exam: Present: normal color Course Vital Signs 06/10/20 15:37 Temperature 97.7 F Pulse Rate 108 H Respiratory 18 Rate Blood Pressure 136/82 O2 Sat by Pulse 98 Oximetry EKG Findings - EKG Comments: EKG Findings:: Sinus rhythm at 90. DC 172. QRS 96. QT 334. QTC 408. Normal axis. Normal QRS. Nonspecific T waves. Medical Decision Making - Medical Decision Making Patient has eloped. Patient did not wait to speak with me again. - Lab Data Result diagrams: 06/10/20 16:00 06/10/20 16:00 Lab Results 06/10/20 06/10/20 06/10/20 Range/Units 16:00 16:00 16:00 WBC 9.1 (3.8-10.6) k/uL RBC 4.21 L (4.30-5.90) m/uL Hgb 13.7 (13.0-17.5) gm/dL Hct 41.0 (39.0-53.0) % MCV 97.4 (80.0-100.0) fL MCH 32.5 (25.0-35.0) pg MCHC 33.4 (31.0-37.0) g/dL RDW 13.1 (11.5-15.5) % Plt Count 216 (150-450) k/uL Neutrophils % 62 % Lymphocytes % 23 % Monocytes % 9 % Eosinophils % 2 % Basophils % 1 % Neutrophils # 5.6 (1.3-7.7) k/uL Lymphocytes # 2.1 (1.0-4.8) k/uL Monocytes # 0.8 (0-1.0) k/uL Eosinophils # 0.2 (0-0.7) k/uL Basophils # 0.1 (0-0.2) k/uL PT (9.0-12.0) sec INR (<1.2) APTT (22.0-30.0) sec Sodium 142 (137-145) mmol/L Potassium 3.4 L (3.5-5.1) mmol/L Chloride 112 H (98-107) mmol/L Carbon Dioxide 15 L (22-30) mmol/L Anion Gap 15 mmol/L BUN 11 (9-20) mg/dL Creatinine 0.88 (0.66-1.25) mg/dL Est GFR (CKD-EPI)AfAm >90 (>60 ml/min/1.73 sqM) Est GFR (CKD-EPI)NonAf >90 (>60 ml/min/1.73 sqM) Glucose 170 H (74-99) mg/dL Calcium 9.2 (8.4-10.2) mg/dL Total Bilirubin 0.3 (0.2-1.3) mg/dL AST 48 (17-59) U/L ALT 32 (4-49) U/L Alkaline Phosphatase 109 (38-126) U/L Troponin I (0.000-0.034) ng/mL Total Protein 7.0 (6.3-8.2) g/dL Albumin 4.0 (3.5-5.0) g/dL Amylase 192 H (30-110) U/L Lipase 912 H (23-300) U/L Urine Color Colorless Urine Appearance Clear (Clear) Urine pH 5.5 (5.0-8.0) Ur Specific [place] 1.004 (1.001-1.035) Urine Protein Negative (Negative) Urine Glucose (UA) Negative (Negative) Urine Ketones Negative (Negative) Urine Blood Negative (Negative) Urine Nitrite Negative (Negative) Urine Bilirubin Negative (Negative) Urine Urobilinogen <2.0 (<2.0) mg/dL Ur Leukocyte Esterase Negative (Negative) 06/10/20 06/10/20 Range/Units 16:00 16:00 WBC (3.8-10.6) k/uL RBC (4.30-5.90) m/uL Hgb (13.0-17.5) gm/dL Hct (39.0-53.0) % MCV (80.0-100.0) fL MCH (25.0-35.0) pg MCHC (31.0-37.0) g/dL RDW (11.5-15.5) % Plt Count (150-450) k/uL Neutrophils % % Lymphocytes % % Monocytes % % Eosinophils % % Basophils % % Neutrophils # (1.3-7.7) k/uL Lymphocytes # (1.0-4.8) k/uL Monocytes # (0-1.0) k/uL Eosinophils # (0-0.7) k/uL Basophils # (0-0.2) k/uL PT 9.6 (9.0-12.0) sec INR 0.9 (<1.2) APTT 25.1 (22.0-30.0) sec Sodium (137-145) mmol/L Potassium (3.5-5.1) mmol/L Chloride (98-107) mmol/L Carbon Dioxide (22-30) mmol/L Anion Gap mmol/L BUN (9-20) mg/dL Creatinine (0.66-1.25) mg/dL Est GFR (CKD-EPI)AfAm (>60 ml/min/1.73 sqM) Est GFR (CKD-EPI)NonAf (>60 ml/min/1.73 sqM) Glucose (74-99) mg/dL Calcium (8.4-10.2) mg/dL Total Bilirubin (0.2-1.3) mg/dL AST (17-59) U/L ALT (4-49) U/L Alkaline Phosphatase (38-126) U/L Troponin I <0.012 (0.000-0.034) ng/mL Total Protein (6.3-8.2) g/dL Albumin (3.5-5.0) g/dL Amylase (30-110) U/L Lipase (23-300) U/L Urine Color Urine Appearance (Clear) Urine pH (5.0-8.0) Ur Specific [place] (1.001-1.035) Urine Protein (Negative) Urine Glucose (UA) (Negative) Urine Ketones (Negative) Urine Blood (Negative) Urine Nitrite (Negative) Urine Bilirubin (Negative) Urine Urobilinogen (<2.0) mg/dL Ur Leukocyte Esterase (Negative) Disposition Clinical Impression: Pancreatitis, Abdominal pain Disposition: Left Against Medical Advice Is patient prescribed a controlled substance at d/c from ED?: No Referrals: Silvia Rios MD [Primary Care Provider] - 1-2 days Time of Disposition: 17:28
[2020-06-10 16:19] LABS: Basophils # (A) 0.1 k/uL (0-0.2); Basophils % (A) 1 %; Eosinophils # (A) 0.2 k/uL (0-0.7); Eosinophils % (A) 2 %; HGB 13.7 gm/dL (13.0-17.5); Lymphocytes # (A) 2.1 k/uL (1.0-4.8); Lymphocytes % (A) 23 %; MCH 32.5 pg (25.0-35.0); MCHC 33.4 g/dL (31.0-37.0); MCV 97.4 fL (80.0-100.0); Monocytes # (A) 0.8 k/uL (0-1.0); Monocytes % (A) 9 %; Neutrophils # (A) 5.6 k/uL (1.3-7.7); Neutrophils % (A) 62 %; Platelet Count 216 k/uL (150-450); RBC 4.21 m/uL (4.30-5.90); RDW 13.1 % (11.5-15.5); WBC 9.1 k/uL (3.8-10.6)
[2020-06-10 16:29] LABS: ALT 32 U/L (4-49); AST 48 U/L (17-59); African American GFR (CKD) >90 (>60 ml/min/1.73 sqM); Alkaline Phosphatase 109 U/L (38-126); Amylase 192 U/L (30-110); Anion Gap 15 mmol/L; Blood Urea Nitrogen 11 mg/dL (9-20); Calcium 9.2 mg/dL (8.4-10.2); Carbon Dioxide 15 mmol/L (22-30); Chloride 112 mmol/L (98-107); Glucose 170 mg/dL (74-99); Non-African American GFR(CKD) >90 (>60 ml/min/1.73 sqM); Potassium 3.4 mmol/L (3.5-5.1); Sodium 142 mmol/L (137-145); Total Bilirubin 0.3 mg/dL (0.2-1.3)
[2020-06-10 16:36] LABS: Appearance,Urine Clear (Clear); Bilirubin,Urine Negative (Negative); Blood,Urine Negative (Negative); Color,Urine Colorless; Glucose,Urine (UA) Negative (Negative); Ketones,Urine Negative (Negative); Leukocyte Esterase,Urine Negative (Negative); Nitrite,Urine Negative (Negative); PH, Urine 5.5 (5.0-8.0); Protein,Urine Negative (Negative); Specific Gravity,Urine 1.004 (1.001-1.035); Urobilinogen,Urine <2.0 mg/dL (<2.0)
[2020-06-10 16:42] LABS: INR 0.9 (<1.2); Partial Thromboplastin Time 25.1 sec (22.0-30.0); Prothrombin Time 9.6 sec (9.0-12.0)
--- NOTE | 2020-06-10 18:05 | CT ---
EXAMINATION TYPE: CT angio thor/abd pel aorta with contrast and with 3-D reconstruction renderings DATE OF EXAM: 06/10/2020 COMPARISON: 10/05/2010 HISTORY: Abdominal to chest discomfort with elevated d-dimer CT DLP: 1509.6 mGycm. Automated Exposure Control for Dose Reduction was Utilized. CONTRAST: CT scan of the thorax, abdomen and pelvis is performed without and with IV Contrast, patien t injected with 100 mL of Isovue 370. FINDINGS: LUNGS: The lungs are grossly clear, there is no concerning parenchymal mass or nodule identified. The re is no pleural effusion or pneumothorax seen. The tracheobronchial tree is patent. MEDIASTINUM: There are no greater than 1 cm hilar or mediastinal lymph nodes. No pericardial effusi on is seen. Coronary calcifications are noted. OTHER: No additional significant abnormality is seen. LIVER/GB: No significant abnormality is appreciated. Biliary tree unremarkable. PANCREAS: There is moderately prominent peripancreatic edematous reticulation throughout the anterior pararenal space, affecting the pancreatic tail with pancreatic body, and then the pancreatic neck. P ancreatic head does not appear to be involved. There is a 3.0 cm mean diameter pancreatic tail fluid focus, which is predominantly smoothly marginated. The pancreas parenchyma enhances normally, with the exception of two sub-cm cyst-like foci and a post erior 1 cm posterior hypodense band of parenchyma extending posteriorly just cephalad to the splenic vein. The splenic vein is widely patent. There are no pancreatic or peripancreatic abnormal gas collections. SPLEEN: No significant abnormality is seen. ADRENALS: No significant abnormality is seen. KIDNEYS: No significant abnormality is seen. BOWEL: No significant abnormality is seen. GENITAL ORGANS: No gross abnormality seen. LYMPH NODES: No greater than 1cm abdominal or pelvic lymph nodes are appreciated. OSSEOUS STRUCTURES: No significant abnormality is seen. VASCULATURE: The thoracic aorta, abdominal aorta, and pelvic arterial structures are widely patent an d are negative for intramural hematoma, dissection, or aneurysm. There are scattered mild atheroscler otic intimal calcifications. The mesenteric and renal arteries are widely patent. OTHER: No significant additional abnormality is seen. IMPRESSION: 1. MODERATE PANCREATITIS FINDINGS DISCUSSED. EVENTUAL FOLLOW-UP CT/MR IMAGING SUGGESTED TO PROVE RESOLUTION OF THE FINDINGS. 2. No acute aortoiliac findings. Coronary calcifications noted.
== END 2020-06-10 17:36 | disposition left against medical advice (07) ==
LOC: EC 15:36
DX: K85.90 Acute pancreatitis without necrosis or infection, unspecified (principal); I10 Essential (primary) hypertension; G62.9 Polyneuropathy, unspecified; G47.00 Insomnia, unspecified; F17.200 Nicotine dependence, unspecified, uncomplicated; Z79.899 Other long term (current) drug therapy; Z79.891 Long term (current) use of opiate analgesic; Z99.2 Dependence on renal dialysis
CPT/HCPCS: 36415; 93005; 80053; 82150; 83690; 84484; 85025; 85610; 85730; 81003; 71275; 74174; 99284; 96360; Q9967

== ENCOUNTER 2020-07-25 00:29 | Inpatient (IN) | payer OTHER ==
[2020-07-25] MEDS ORDERED: PANTOPRAZOLE 40 MG/10 ML VIAL IVP STA (00:53)
[2020-07-25] MEDS ORDERED: SODIUM CHLORIDE 0.9% 1,000 ML IV STA ×2 (00:53)
[2020-07-25] MEDS ORDERED: HYDROmorphone 0.5 MG/0.5 ML SYRINGE IVP STA (00:53)
[2020-07-25] MEDS ORDERED: ONDANSETRON 4 MG/2 ML VIAL IVP STA (00:53)
--- NOTE | 2020-07-25 01:31 | ED ---
Abdominal Pain HPI - General Chief Complaint: Abdominal Pain Stated Complaint: ABD PAIN Time Seen by Provider: 07/25/20 00:37 Source: patient, RN notes reviewed, old records reviewed Mode of arrival: ambulatory Limitations: no limitations - History of Present Illness Initial Comments: Patient is a 44-year-old male with a history of alcohol abuse. He states that he drank one beer tonight. He is complaining of worsening left-sided upper abdominal pain with radiation towards the shoulder. Patient reports that he believes is related to pancreatitis is been diagnosed with this in the past. Reviewing patient's chart when he was previously diagnosed with pancreatitis E eloped and was not admitted to the hospital. He reports that he complains of na usea. He denies any shortness of breath. He does report pain with taking a deep breath in his abdomen when he moves his diaphragm. He denies any changes in stools. He reports he's had normal urination. - Related Data Home Medications Medication Instructions Recorded Confirmed Gabapentin 800 mg PO TID 05/10/17 09/18/19 Ibuprofen [Motrin] 200 mg PO Q8HR PRN 05/06/19 09/18/19 Fenofibrate (Unknown Dose) 1 dose PO DAILY 05/16/19 09/18/19 Vitamin D (Unknown Dose) 1 dose PO QMONTH 05/16/19 09/18/19 Ergocalciferol [Vitamin D2] 50,000 unit PO Q30D 09/15/19 09/18/19 Muscle Relaxer 1 tab PO DAILY 09/15/19 09/18/19 oxyCODONE HCL [OxyIR] 5 mg PO TID 09/15/19 09/18/19 Previous Rx's Medication Instructions Recorded Aspirin 325 mg PO DAILY #14 tab 09/18/19 Docusate [Colace] 100 mg PO BID #60 capsule 09/18/19 Hydrocodone/Acetaminophen [[place] 1 tab PO Q4-6H PRN #18 tab 09/18/19 5-325] Allergies Allergy/AdvReac Type Severity Reaction Status Date / Time No Known Allergies Allergy Verified 07/25/20 00:34 Review of Systems ROS Statement: Those systems with pertinent positive or pertinent negative responses have been documented in the HPI. ROS Other: All systems not noted in ROS Statement are negative. Past Medical History Past Medical History: Hypertension, Neurologic Disorder, Renal Disease Additional Past Medical History / Comment(s): right leg nerve damage/pain, right foot pain- states limping-Sees Dr. Dickey, insomnia. Dialysis Sep 2016-Dec 2016. hx FX nose Proteinuria, low back pain with numbness tingling right leg, 5 ruptured disc, neuropathy History of Any Multi-Drug Resistant Organisms: None Reported Past Surgical History: No Surgical Hx Reported Additional Past Surgical History / Comment(s): Rhinoplasty; pain procedures, states scraping of sinus Past Anesthesia/Blood Transfusion Reactions: No Reported Reaction Past Psychological History: Anxiety, Depression Smoking Status: Current every day smoker Past Alcohol Use History: Occasional Past Drug Use History: None Reported - Past Family History Mother Family Medical History: No Reported History Additional Family Medical History / Comment(s): . General Exam - General Exam Comments Initial Comments: 44-year-old male. Alert and oriented 3. No acute distress. Limitations: no limitations General appearance: alert, in no apparent distress Head exam: Present: atraumatic, normocephalic, normal inspection Eye exam: Present: normal appearance, PERRL, EOMI. Absent: scleral icterus, conjunctival injection, periorbital swelling ENT exam: Present: normal exam, mucous membranes moist Neck exam: Present: normal inspection. Absent: tenderness, meningismus, lympha denopathy Respiratory exam: Present: normal lung sounds bilaterally. Absent: respiratory distress, wheezes, rales, rhonchi, stridor Cardiovascular Exam: Present: regular rate, normal rhythm, normal heart sounds. Absent: systolic murmur, diastolic murmur, rubs, gallop, clicks GI/Abdominal exam: Present: soft, tenderness (Left upper quadrant tenderness), normal bowel sounds. Absent: distended, guarding, rebound, rigid Extremities exam: Present: normal inspection, full ROM, normal capillary refill. Absent: tenderness, pedal edema, joint swelling, calf tenderness Back exam: Present: normal inspection Neurological exam: Present: alert, oriented X3, CN II-XII intact Psychiatric exam: Present: normal affect, normal mood Skin exam: Present: warm, dry, intact, normal color. Absent: rash Course Vital Signs 07/25/20 00:33 Temperature 99.4 F Pulse Rate 83 Respiratory 18 Rate Blood Pressure 125/80 O2 Sat by Pulse 98 Oximetry Medical Decision Making - Medical Decision Making 44-year-old male with history of alcohol abuse presents to return today with onset of left-sided abdominal pain. He reports he drinks one beer tonight. At this time Patient labwork was reviewed. Has significant pancreatitis with a lipase of 4700. Patient was given a fluid bolus and will repeat remain nothing by mouth. He did have previous computed tomography scan in June was first diagnosis of pancreatitis. This was reviewed, showing mild pancreatitis no other acute findings were noted. At this time pancreatitis and history of alcohol abuse Patient will be admitted. Patient was placed on [place] protocol. Patient was given banana bag. - Lab Data Result diagrams: 07/25/20 01:19 07/25/20 01:19 Lab Results 07/25/20 07/25/20 07/25/20 Range/Units 01:19 01: 01:19 WBC 14.1 H (3.8-10.6) k/uL RBC 4.50 (4.30-5.90) m/uL Hgb 13.8 (13.0-17.5) gm/dL Hct 41.7 (39.0-53.0) % MCV 92.7 (80.0-100.0) fL MCH 30.7 (25.0-35.0) pg MCHC 33.1 (31.0-37.0) g/dL RDW 12.8 (11.5-15.5) % Plt Count 279 (150-450) k/uL MPV 7.2 Neutrophils % 78 % Lymphocytes % 9 % Monocytes % 6 % Eosinophils % 4 % Basophils % 1 % Neutrophils # 11.0 H (1.3-7.7) k/uL Lymphocytes # 1.3 (1.0-4.8) k/uL Monocytes # 0.9 (0-1.0) k/uL Eosinophils # 0.5 (0-0.7) k/uL Basophils # 0.1 (0-0.2) k/uL PT 9.3 (9.0-12.0) sec INR 0.9 (<1.2) APTT 22.7 (22.0-30.0) sec Sodium (137-145) mmol/L Potassium (3.5-5.1) mmol/L Chloride (98-107) mmol/L Carbon Dioxide (22-30) mmol/L Anion Gap mmol/L BUN (9-20) mg/dL Creatinine (0.66-1.25) mg/dL Est GFR (CKD-EPI)AfAm (>60 ml/min/1.73 sqM) Est GFR (CKD-EPI)NonAf (>60 ml/min/1.73 sqM) Glucose (74-99) mg/dL Calcium (8.4-10.2) mg/dL Total Bilirubin (0.2-1.3) mg/dL AST (17-59) U/L ALT (4-49) U/L Alkaline Phosphatase (38-126) U/L Total Protein (6.3-8.2) g/dL Albumin (3.5-5.0) g/dL Amylase (30-110) U/L Lipase (23-300) U/L Urine Color Yellow Urine Appearance Clear (Clear) Urine pH 6.0 (5.0-8.0) Ur Specific [place] 1.031 (1.001-1.035) Urine Protein 1+ H (Negative) Urine Glucose (UA) Negative (Negative) Urine Ketones Trace H (Negative) Urine Blood Negative (Negative) Urine Nitrite Negative (Negative) Urine Bilirubin Negative (Negative) Urine Urobilinogen 2.0 (<2.0) mg/dL Ur Leukocyte Esterase Negative (Negative) Urine RBC <1 (0-5) /hpf Urine WBC 3 (0-5) /hpf Ur Squamous Epith Cells <1 (0-4) /hpf Hyaline Casts 27 H (0-2) /lpf Urine Mucus Few H (None) /hpf 07/25/20 Range/Units 01:19 WBC (3.8-10.6) k/uL RBC (4.30-5.90) m/uL Hgb (13.0-17.5) gm/dL Hct (39.0-53.0) % MCV (80.0-100.0) fL MCH (25.0-35.0) pg MCHC (31.0-37.0) g/dL RDW (11.5-15.5) % Plt Count (150-450) k/uL MPV Neutrophils % % Lymphocytes % % Monocytes % % Eosinophils % % Basophils % % Neutrophils # (1.3-7.7) k/uL Lymphocytes # (1.0-4.8) k/uL Monocytes # (0-1.0) k/uL Eosinophils # (0-0.7) k/uL Basophils # (0-0.2) k/uL PT (9.0-12.0) sec INR (<1.2) APTT (22.0-30.0) sec Sodium 136 L (137-145) mmol/L Potassium 4.0 (3.5-5.1) mmol/L Chloride 110 H (98-107) mmol/L Carbon Dioxide 20 L (22-30) mmol/L Anion Gap 6 mmol/L BUN 16 (9-20) mg/dL Creatinine 0.91 (0.66-1.25) mg/dL Est GFR (CKD-EPI)AfAm >90 (>60 ml/min/1.73 sqM) Est GFR (CKD-EPI)NonAf >90 (>60 ml/min/1.73 sqM) Glucose 116 H (74-99) mg/dL Calcium 9.0 (8.4-10.2) mg/dL Total Bilirubin 0.5 (0.2-1.3) mg/dL AST 24 (17-59) U/L ALT 14 (4-49) U/L Alkaline Phosphatase 103 (38-126) U/L Total Protein 5.6 L (6.3-8.2) g/dL Albumin 2.9 L (3.5-5.0) g/dL Amylase 724 H* (30-110) U/L Lipase 4779 H (23-300) U/L Urine Color Urine Appearance (Clear) Urine pH (5.0-8.0) Ur Specific [place] (1.001-1.035) Urine Protein (Negative) Urine Glucose (UA) (Negative) Urine Ketones (Negative) Urine Blood (Negative) Urine Nitrite (Negative) Urine Bilirubin (Negative) Urine Urobilinogen (<2.0) mg/dL Ur Leukocyte Esterase (Negative) Urine RBC (0-5) /hpf Urine WBC (0-5) /hpf Ur Squamous Epith Cells (0-4) /hpf Hyaline Casts (0-2) /lpf Urine Mucus (None) /hpf 07/25/20 01:31 EKG shows normal sinus rhythm. Anterior infarct age undetermined. Abnormal EKG. Ventricular rate of 67 bpm. WI interval is 178 ms. QS duration is 96 ms. QT QTc is 384/405 ms. - Radiology Data Radiology results: report reviewed Normal KUB was nonspecific bowel gas pattern. Normal Chest x-ray. Disposition Clinical Impression: Pancreatitis Disposition: ADMITTED IP TO THIS HOSP Condition: Stable Is patient prescribed a controlled substance at d/c from ED?: No Referrals: Silvia Rios MD [Primary Care Provider] - 1-2 days Time of Disposition: 02:56
[2020-07-25 01:39] LABS: Basophils # (A) 0.1 k/uL (0-0.2); Basophils % (A) 1 %; Eosinophils # (A) 0.5 k/uL (0-0.7); Eosinophils % (A) 4 %; HCT 41.7 % (39.0-53.0); HGB 13.8 gm/dL (13.0-17.5); Lymphocytes # (A) 1.3 k/uL (1.0-4.8); Lymphocytes % (A) 9 %; MCH 30.7 pg (25.0-35.0); MCHC 33.1 g/dL (31.0-37.0); MCV 92.7 fL (80.0-100.0); Mean Platelet Volume 7.2; Monocytes # (A) 0.9 k/uL (0-1.0); Monocytes % (A) 6 %; Neutrophils % (A) 78 %; Platelet Count 279 k/uL (150-450); RDW 12.8 % (11.5-15.5); WBC 14.1 k/uL (3.8-10.6)
[2020-07-25 01:49] LABS: ALT 14 U/L (4-49); AST 24 U/L (17-59); African American GFR (CKD) >90 (>60 ml/min/1.73 sqM); Albumin 2.9 g/dL (3.5-5.0); Alkaline Phosphatase 103 U/L (38-126); Anion Gap 6 mmol/L; Blood Urea Nitrogen 16 mg/dL (9-20); Carbon Dioxide 20 mmol/L (22-30); Chloride 110 mmol/L (98-107); Glucose 116 mg/dL (74-99); INR 0.9 (<1.2); Non-African American GFR(CKD) >90 (>60 ml/min/1.73 sqM); Partial Thromboplastin Time 22.7 sec (22.0-30.0); Prothrombin Time 9.3 sec (9.0-12.0); Sodium 136 mmol/L (137-145); Total Bilirubin 0.5 mg/dL (0.2-1.3); Total Protein 5.6 g/dL (6.3-8.2)
--- NOTE | 2020-07-25 02:00 | XR ---
EXAM: XR Abdomen, 2 Views CLINICAL HISTORY: ITS.REASON XR Reason: abdominal pain TECHNIQUE: Frontal view of the abdomen/pelvis with upright view of the abdomen. COMPARISON: No previous study. FINDINGS: Intraperitoneal space: No free air. Gastrointestinal tract: Nonspecific bowel gas pattern. No dilation. 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 A 0.5 cm probable bone [place] right sacral alae. Other findings: Mild to moderate quantity of stool. No abnormal calcifications. IMPRESSION: Nonspecific bowel gas pattern.
--- NOTE | 2020-07-25 02:01 | XR ---
EXAM: XR Chest, 2 Views CLINICAL HISTORY: ITS.REASON XR Reason: chest pain TECHNIQUE: Frontal and lateral views of the chest. COMPARISON: 09/25/2016. FINDINGS: Lungs: The lungs are well aerated. No consolidative change. Pleural space: No pleural effusions. No pneumothorax. Heart: Cardiomediastinal silhouette unremarkable. Mediastinum: See above. Bones/joints: The ribs are grossly unremarkable. IMPRESSION: No active disease.
[2020-07-25 02:27] LABS: Lipase 4779 U/L (23-300)
[2020-07-25 02:29] LABS: Amylase 724 U/L (30-110)
[2020-07-25 02:39] LABS: Appearance,Urine Clear (Clear); Bilirubin,Urine Negative (Negative); Blood,Urine Negative (Negative); Color,Urine Yellow; Glucose,Urine (UA) Negative (Negative); Hyaline Casts,Urine 27 /lpf (0-2); Ketones,Urine Trace (Negative); Leukocyte Esterase,Urine Negative (Negative); Mucus,Urine Few /hpf; Nitrite,Urine Negative (Negative); Protein,Urine 1+ (Negative); RBC,Urine <1 /hpf (0-5); Specific Gravity,Urine 1.031 (1.001-1.035); Squamous Epithelial Cell,Urine <1 /hpf (0-4); WBC,Urine 3 /hpf (0-5)
[2020-07-25] MEDS ORDERED: SODIUM CHLORIDE 0.9% 1,000 ML IV ONE (02:47)
[2020-07-25] MEDS ORDERED: HYDROmorphone 1 MG/ML 1 ML SYRINGE IVP STA (02:47)
[2020-07-25] MEDS ORDERED: LORazepam 2 MG/ML INJ IV PRN ×3 (02:55)
[2020-07-25] MEDS ORDERED: THIAMINE 100 MG/ML 2 ML VIAL IM STA (02:55)
[2020-07-25] MEDS ORDERED: ACETAMINOPHEN TAB 325 MG TAB PO PRN (02:58)
[2020-07-25] MEDS ORDERED: IBUPROFEN 400 MG TAB PO PRN (02:58)
[2020-07-25] MEDS ORDERED: HYDROmorphone 0.5 MG/0.5 ML SYRINGE IVP PRN (02:58)
[2020-07-25] MEDS ORDERED: NALOXONE 0.4 MG/ML 1 ML VIAL IV PRN (02:58)
[2020-07-25] MEDS ORDERED: 1: MVI, ADULT NO.4 WITH VIT K 10 ML, THIAMINE 100 MG, FOLIC ACID 1 MG in SODIUM CHLORIDE IV SCH ×4 (03:00)
[2020-07-25] MEDS ORDERED: NICOTINE 21MG/24HR PATCH TRANSDERM STA (03:53)
[2020-07-25] MEDS: HYDROmorphone 1 MG/ML 1 ML SYRINGE IVP PRN ×7 (05:39→23:16)
[2020-07-25] MEDS: PANTOPRAZOLE 40 MG/10 ML VIAL IV SCH (08:19)
--- NOTE | 2020-07-25 09:33 | US ---
EXAMINATION TYPE: US gallbladder DATE OF EXAM: 07/25/2020 COMPARISON: CT 2019 CLINICAL HISTORY: pancreatitis. eval gallbladder. . Abdomen pain x 1 day EXAM MEASUREMENTS: Liver Length: 17.1 cm Gallbladder Wall: 0.2 cm CBD: 0.4 cm Right Kidney: 10.6 x 5.6 x 4.4 cm Pancreas: obscured by overlying midline bowel gas Liver: wnl Gallbladder: wnl Evidence for sonographic Jacobs's sign: no CBD: wnl Right Kidney: wnl IMPRESSION: 1. Pancreas is obscured by bowel gas. No evidence of gallstones.
--- NOTE | 2020-07-25 11:01 | CONS ---
CONSULTATION DATE OF SERVICE: July 25, 2022 REQUESTING PHYSICIAN: Dr. Silvia Rios. REASON FOR CONSULTATION: Acute pancreatitis. HISTORY OF PRESENT ILLNESS: The patient is a 44-year-old pleasant white male admitted to hospital with severe abdominal pain on and off for the last one month duration. The pain initially was lasting for a day or 2 and then resolved. Has been on an intermittent basis. However, for the last one week, the pain continued to progressively get worse. It was mostly located in the epigastric area radiating to the left upper quadrant into the left shoulder. He came into the emergency room yesterday and he was noted to have elevated amylase and lipase consistent with acute pancreatitis and subsequently admitted to the hospital for further evaluation. He never had pancreatitis in the past. History of heavy alcohol abuse for the last 25 years duration. In fact, he had hospitalization with acute alcohol intoxication 2 months ago. He usually drinks about 5 times a week and each time about 7-8 beers a day. No history of chronic liver disease. He is feeling somewhat better this morning. He denies any nausea, vomiting. No fever, chills, or night sweats. PAST MEDICAL HISTORY: Hypertension, heavy alcohol abuse, kidney disease diagnosed 3 years ago that resolved. PAST SURGICAL HISTORY: Rhinoplasty, pain procedures. MEDICATIONS AT HOME: Include gabapentin, Motrin, fenofibrate, vitamin D, vitamin D2, muscle relaxer and oxycodone. ALLERGIES: None. SOCIAL HISTORY: Chronic smoker, heavy alcohol use as mentioned above. FAMILY HISTORY: Unremarkable. REVIEW OF SYSTEMS: CARDIOPULMONARY: No chest pain or shortness of breath. : No dysuria or hematuria. MUSCULOSKELETAL unremarkable. SKIN unremarkable. ENDOCRINE unremarkable. PSYCHIATRIC unremarkable. MUSCULOSKELETAL: Chronic back pain and leg pain. ENT/VISION: Unremarkable. CONSTITUTIONAL: No recent weight loss. No fever, chills, night sweats. PHYSICAL EXAMINATION: He appears comfortable. No apparent distress. Vital signs stable. Blood pressure is 110/71, pulse rate 73, temperature 98.1. HEENT examination unremarkable. Conjunctivae pink. Sclerae anicteric. Oral cavity no lesions. NECK no JVD or lymph node enlargement. Chest was clear to auscultation. HEART: Regular rate and rhythm. ABDOMEN: Soft, it was tender in the epigastric and left upper quadrant area. Rest of the abdomen was benign. Extremities: No pedal edema. Skin no rashes. Neuro: He is alert and oriented x3. No focal deficits. LABS: From today pbx technician, WBC 14.1, hemoglobin 13.8, platelets normal. Basic metabolic panel is within normal limits. BUN and creatinine 16 and 0.9. Sodium 136, potassium 4, chloride 110, CO2 20, amylase 724, lipase 4779. AST, ALT 24 and 14 respectively. T- bilirubin and alkaline phosphatase are within normal limits. No imaging studies were done. He did have a CT angio done in June of 2020 which revealed moderately prominent peripancreatic erythematous throughout the anterior part of the pancreas and there was a 3 cm cyst in the pancreatic tail. CT of the abdomen at that time revealed normal with no evidence of gallstones. IMPRESSION: 1. This is a patient with history of heavy alcohol abuse, admitted to the hospital with epigastric left upper quadrant abdominal pain on and off for the last one month duration, noted to have elevated amylase and lipase consistent with acute pancreatitis related to alcohol use. Serum transaminases are normal, which makes it very unlikely that we are dealing with biliary pancreatitis. A CT angio done in June of 2018 showed evidence of pancreatitis and a small pseudocyst in the tail of the pancreas. No gallbladder stones identified. 2. History of heavy alcohol abuse. RECOMMENDATIONS: 1. Keep him n.p.o. 2. Aggressive IV hydration. 3. Repeat labs in the morning. 4. Abstinence from alcohol. 5. Continue with symptomatic and supportive care. 6. I had a lengthy discussion with the patient regarding abstinence from alcohol. 7. Obtain ultrasound of the abdomen. 8. Will follow with you closely. Thank you for this consultation. MMODL / IJN: [id number] /
[2020-07-25] MEDS ORDERED: tiZANidine 4 MG TAB PO PRN (11:32)
[2020-07-25] MEDS: GABAPENTIN 400 MG CAP PO SCH ×2 (11:53→20:23)
[2020-07-25] MEDS: SODIUM CHLORIDE 0.9% 1,000 ML IV SCH (11:54)
--- NOTE | 2020-07-25 12:48 | P.HPIM ---
History of Present Illness 44-year-old male came in with comments of epigastric left upper quadrant abdominal pain radiating to the left shoulder area and severe sharp in nature associated with nausea and vomiting. Found to have pancreatitis. Patient has all alcohol pancreatitis does drink about 10 beers a day. Patient had ultrasound of the liver and gallbladder which did not show any cholelithiasis. Patient has highly elevated lipase and amylase. Patient denied any fever chills. Patient pain significant improved very minimal or no nausea at this t oscar wishing to eat. Review of Systems REVIEW OF SYSTEMS: CONSTITUTIONAL: No fever, no malaise, no fatigue. HEENT: No recent visual problems or hearing problems. Denied any sore throat. CARDIOVASCULAR: No chest pain, orthopnea, PND, no palpitations, no syncope. PULMONARY: No shortness of breath, no cough, no hemoptysis. GASTROINTESTINAL: No diarrhea. NEUROLOGICAL: No headaches, no weakness, no numbness. HEMATOLOGICAL: Denies any bleeding or petechiae. GENITOURINARY: Denies any burning micturition, frequency, or urgency. MUSCULOSKELETAL/RHEUMATOLOGICAL: Denies any joint pain, swelling, or any muscle pain. ENDOCRINE: Denies any polyuria or polydipsia. The rest of the 14-point review of systems is negative. Past Medical History Past Medical History: Hypertension, Neurologic Disorder, Renal Disease Additional Past Medical History / Comment(s): right leg nerve damage/pain, right foot pain- states limping-Sees Dr. Dickey, insomnia. Dialysis Sep 2016-Dec 2016. hx FX nose Proteinuria, low back pain with numbness tingling right leg, 5 ruptured disc, neuropathy History of Any Multi-Drug Resistant Organisms: None Reported Past Surgical History: No Surgical Hx Reported Additional Past Surgical History / Comment(s): Rhinoplasty; pain procedures, states scraping of sinus Past Anesthesia/Blood Transfusion Reactions: No Reported Reaction Past Psychological History: Anxiety, Depression Additional Psychological History / Comment(s): "Panic attacks" Smoking Status: Former smoker Past Alcohol Use History: Occasional Additional Past Alcohol Use History / Comment(s): Has been smoking 1PPD for 23 yrs. Past Drug Use History: None Reported - Past Family History Mother Family Medical History: No Reported History Additional Family Medical History / Comment(s): . Medications and Allergies Home Medications Medication Instructions Recorded Confirmed Type Gabapentin 800 mg PO TID 05/10/17 07/25/20 History Ergocalciferol [Vitamin D2] 50,000 unit PO Q30D 09/15/19 07/25/20 History Fluticasone Nasal [place] [Flonase 2 spr EA NOSTRIL DAILY 07/25/20 07/25/20 History Nasal [place]] Ibuprofen [Motrin] 800 mg PO Q8H PRN 07/25/20 07/25/20 History Sildenafil [Revatio] 20 mg PO DAILY PRN 07/25/20 07/25/20 History Zinc Gluconate [Zinc] 50 mg PO DAILY 07/25/20 07/25/20 History atenoloL [Atenolol] 25 mg PO DAILY 07/25/20 07/25/20 History hydrOXYzine pamoate [hydrOXYzine 25 mg PO HS PRN 07/25/20 07/25/20 History PAMOATE] tiZANidine [Zanaflex] 4 mg PO Q6HR PRN 07/25/20 07/25/20 History Allergies Allergy/AdvReac Type Severity Reaction Status Date / Time No Known Allergies Allergy Verified 07/25/20 10:08 Physical Exam Vitals: Vital Signs Temp Pulse Pulse Resp BP BP Pulse Ox 07/25/20 07:00 98.1 F 73 18 110/71 95 07/25/20 04:05 97.7 F 70 16 117/75 99 07/25/20 03:44 80 18 123/80 98 07/25/20 00:33 99.4 F 83 18 125/80 98 Intake and Output 07/24/20 07/25/20 07/25/20 22:59 06:59 14:59 Intake Total 200 Balance 200 Intake: Intake, IV Titration 200 Amount Sodium Chloride 0.9% 1, 200 000 ml @ 100 mls/hr IV . BY DURATION [facility] Rx#: [id number] Other: Weight 87.543 kg PHYSICAL EXAMINATION: GENERAL: The patient is alert and oriented x3, not in any acute distress. Well developed, well nourished. HEENT: Pupils are round and equally reacting to light. EOMI. No scleral icterus. No conjunctival pallor. Normocephalic, atraumatic. No pharyngeal erythema. No thyromegaly. CARDIOVASCULAR: S1 and S2 present. No murmurs, rubs, or gallops. PULMONARY: Chest is clear to auscultation, no wheezing or crackles. ABDOMEN: Soft, very minimal epigastric abdominal tenderness nondistended, normoactive bowel sounds. No palpable organomegaly. MUSCULOSKELETAL: No joint swelling or deformity. EXTREMITIES: No cyanosis, clubbing, or pedal edema. NEUROLOGICAL: Gross neurological examination did not reveal any focal deficits. SKIN: No rashes. Results CBC & Chem 7: 07/25/20 01:19 07/25/20 01:19 Labs: Abnormal Lab Results - Last 24 Hours (Table) 07/25/20 07/25/20 07/25/20 Range/Units 01:19 01:19 01:19 WBC 14.1 H (3.8-10.6) k/uL Neutrophils # 11.0 H (1.3-7.7) k/uL Sodium 136 L (137-145) mmol/L Chloride 110 H (98-107) mmol/L Carbon Dioxide 20 L (22-30) mmol/L Glucose 116 H (74-99) mg/dL Total Protein 5.6 L (6.3-8.2) g/dL Albumin 2.9 L (3.5-5.0) g/dL Amylase 724 H* (30-110) U/L Lipase 4779 H (23-300) U/L Urine Protein 1+ H (Negative) Urine Ketones Trace H (Negative) Hyaline Casts 27 H (0-2) /lpf Urine Mucus Few H (None) /hpf Thrombosis Risk Factor Assmnt - Choose All That Apply Any of the Below Risk Factors Present?: Yes Each Factor Represents 1 point: Age 41-60 years Thrombosis Risk Factor Assessment Total Risk Factor Score: 1 Thrombosis Risk Factor Assessment Level: Low Risk Assessment and Plan Plan: -Acute alcoholic pancreatitis: Patient will be nothing by mouth his symptoms are already better probably can start him on clear liquid diet. Unfortunately patient has a an interview tomorrow which she has to attend. If patient is doing well patient will order clear liquid diet later today. Repeat lipase was ordered by gastroenterology. -Alcohol abuse: Patient is being watch for withdrawals patient is on Ativan CIWA protocol -Depression -Hypertension -Leukocytosis : Reactive secondary to pancreatitis -DVT prophylaxis: Lovenox
[2020-07-25 15:11] LABS: HCT 37.6 % (39.0-53.0); MCH 30.4 pg (25.0-35.0); MCHC 31.9 g/dL (31.0-37.0); MCV 95.1 fL (80.0-100.0); Mean Platelet Volume 7.3; Platelet Count 257 k/uL (150-450); RBC 3.95 m/uL (4.30-5.90); WBC 9.3 k/uL (3.8-10.6)
[2020-07-25 15:23] LABS: African American GFR (CKD) >90 (>60 ml/min/1.73 sqM); Anion Gap 6 mmol/L; Blood Urea Nitrogen 11 mg/dL (9-20); Calcium 8.2 mg/dL (8.4-10.2); Carbon Dioxide 21 mmol/L (22-30); Chloride 111 mmol/L (98-107); Glucose 74 mg/dL (74-99); Lipase 938 U/L (23-300); Non-African American GFR(CKD) >90 (>60 ml/min/1.73 sqM); Potassium 3.8 mmol/L (3.5-5.1); Sodium 138 mmol/L (137-145)
[2020-07-25 15:41] LABS: Amylase 331 U/L (30-110)
[2020-07-25] MEDS: THIAMINE 100 MG TAB PO SCH (17:02)
[2020-07-25] MEDS: NICOTINE 21MG/24HR PATCH TRANSDERM SCH (17:02)
[2020-07-26] MEDS: HYDROmorphone 1 MG/ML 1 ML SYRINGE IVP PRN ×2 (02:49→05:22)
[2020-07-26] MEDS: SODIUM CHLORIDE 0.9% 1,000 ML IV SCH ×2 (03:47→08:20)
[2020-07-26 07:33] LABS: HGB 12.2 gm/dL (13.0-17.5); MCH 31.1 pg (25.0-35.0); MCV 94.2 fL (80.0-100.0); Mean Platelet Volume 7.2; Platelet Count 236 k/uL (150-450); RBC 3.93 m/uL (4.30-5.90); RDW 12.6 % (11.5-15.5); WBC 9.1 k/uL (3.8-10.6)
[2020-07-26 07:36] VITALS: BP 122/79; PULSE 85; RESP 17; TEMP 99
[2020-07-26] MEDS: THIAMINE 100 MG TAB PO SCH (08:20)
[2020-07-26] MEDS: PANTOPRAZOLE 40 MG/10 ML VIAL IV SCH (08:21)
[2020-07-26] MEDS: NICOTINE 21MG/24HR PATCH TRANSDERM SCH (08:21)
[2020-07-26] MEDS: GABAPENTIN 400 MG CAP PO SCH (08:21)
[2020-07-26] MEDS ORDERED: ENOXAPARIN 40 MG/0.4 ML SYRINGE SQ SCH (09:00)
[2020-07-26] MEDS ORDERED: ERGOCALCIFEROL 50,000 UNIT CAP PO SCH (09:00)
--- NOTE | 2020-07-26 12:02 | P.DS ---
Providers Date of admission: 07/25/20 02:39 Expected date of discharge: 07/26/20 Attending physician: Vicente Trinidad Consults: 07/25/20 02:58 Consult Physician Stat Consulting Provider: Gabriella Lees Consult Reason/Comments: pancreatitis Do you want consulting provider notified?: Yes Primary care physician: Silvia Rios [facility] Course: Final diagnosis -Acute alcoholic pancreatitis, improving -Alcohol abuse -Depression -Hypertension -Leukocytosis: Reactive secondary to pancreatitis -DVT prophylaxis Discharge disposition Patient is being discharged in a stable condition with guarded prognosis to home. Patient will follow-up with Dr. Rios in the outpatient setting upon discharge. Total time taken is greater than 35 minutes. History of present illness This is a 44-year-old male who was recently admitted with left upper quadrant epigastric abdominal pain that radiated to the left shoulder along with some nausea and vomiting and was being closely monitored. Patient was also found to have acute alcohol pancreatitis and is known to drink at least 10 beers per day. During hospitalization patient was maintained on CIWA protocol. Patient had an ultrasound of the liver and gallbladder which did not show any cholelithiasis. Patient's lipase and amylase trending down and patient is tolerating diet. Patient will follow-up with primary care provider in the outpatient setting. Patient instructed to avoid alcohol intake. Patient not currently withdrawing at this time and would like to be discharged home today. Currently no reports of chest pain, shortness of breath, or palpitations. Patient is afebrile. No reports of nausea or vomiting and patient is tolerating diet. On exam vital signs are stable. Temp is 99.0F, pulse is 85, respirations are 17, blood pressure is 122/79, oxygen saturation is 96% on room air. Cardio S1, S2 are muffled. Respiratory system shows diminished breath sounds at the bases with no wheezing or rhonchi noted. Abdomen is soft and nontender. Nervous system shows no focal deficits. Please refer to medication reconciliation sheet for a list of medications. Patient Condition at Discharge: Stable Plan - Discharge Summary Discharge Rx Participant: Yes New Discharge Prescriptions: New Thiamine [Vitamin B-1] 100 mg PO BID-W/MEALS 30 Days #60 tab Continue Gabapentin 800 mg PO TID Ergocalciferol [Vitamin D2 (DRISDOL)] 50,000 unit PO Q30D tiZANidine [Zanaflex] 4 mg PO Q6HR PRN PRN Reason: Muscle Spasm Zinc Gluconate [Zinc] 50 mg PO DAILY hydrOXYzine pamoate [hydrOXYzine PAMOATE] 25 mg PO HS PRN PRN Reason: Anxiety Sildenafil [Revatio] 20 mg PO DAILY PRN PRN Reason: ED Ibuprofen [Motrin] 800 mg PO Q8H PRN PRN Reason: Pain Fluticasone Nasal [place] [Flonase Nasal [place]] 2 spr EA NOSTRIL DAILY atenoloL [Atenolol] 25 mg PO DAILY Discharge Medication List Gabapentin 800 mg PO TID 05/10/17 [History] Ergocalciferol [Vitamin D2 (DRISDOL)] 50,000 unit PO Q30D 09/15/19 [History] Fluticasone Nasal [place] [Flonase Nasal [place]] 2 spr EA NOSTRIL DAILY 07/25/20 [History] Ibuprofen [Motrin] 800 mg PO Q8H PRN 07/25/20 [History] Sildenafil [Revatio] 20 mg PO DAILY PRN 07/25/20 [History] Zinc Gluconate [Zinc] 50 mg PO DAILY 07/25/20 [History] atenoloL [Atenolol] 25 mg PO DAILY 07/25/20 [History] hydrOXYzine pamoate [hydrOXYzine PAMOATE] 25 mg PO HS PRN 07/25/20 [History] tiZANidine [Zanaflex] 4 mg PO Q6HR PRN 07/25/20 [History] Thiamine [Vitamin B-1] 100 mg PO BID-W/MEALS 30 Days #60 tab 07/26/20 [Rx] Follow up Appointment(s)/Referral(s): Silvia Rios MD [Primary Care Provider] - 1-2 days (Patient wants to make appointment. Please call to schedule) Patient Instructions/Handouts: Pancreatitis (DC) Activity/Diet/Wound Care/Special Instructions: Activity Limited until follow-up Continue current diet Follow-up with primary care provider Avoid alcohol intake Discharge Disposition: HOME SELF-CARE
[2020-07-26 12:22] LABS: African American GFR (CKD) 125.9 (60.0-200.0); Albumin 3.1 g/dL (3.80-4.90); Albumin/Globulin Ratio 1.82 (1.60-3.17); Anion Gap 6.3 mmol/L (4.00-12.00); BUN/Creat Ratio 8.75 Ratio (12.00-20.00); Calcium 8.1 mg/dL (8.7-10.3); Carbon Dioxide 25.7 mmol/L (21.6-31.8); Globulin 1.7 g/dL (1.6-3.3); Non-African American GFR(CKD) 108.6 (60.0-200.0); Potassium 3.7 mmol/L (3.5-5.5); Total Bilirubin 0.4 mg/dL (0.3-1.2); Total Protein 4.8 g/dL (6.2-8.2)
== END 2020-07-26 08:30 | disposition home or self-care (01) | DRG 440 ==
LOC: EC 00:29 → 4SSUR 02:39
PROVIDERS: ADMIT Hospitalist; ATTEND Hospitalist
DX: K85.20 Alcohol induced acute pancreatitis without necrosis or infection (principal); F10.10 Alcohol abuse, uncomplicated; F32.9 Major depressive disorder, single episode, unspecified; I10 Essential (primary) hypertension; F41.9 Anxiety disorder, unspecified; G62.9 Polyneuropathy, unspecified; M54.5 Low back pain; M79.671 Pain in right foot; G47.00 Insomnia, unspecified; Z79.899 Other long term (current) drug therapy; Z87.891 Personal history of nicotine dependence; Z87.440 Personal history of urinary (tract) infections
CPT/HCPCS: 36415; 71046; 74018; 76705; 80048; 80053; 81001; 82150; 83690; 85025; 85027; 85610; 85730; 93005; 96361; 96374; 96375; 96376; 99285

== ENCOUNTER 2020-08-15 23:01 | Inpatient (IN) | payer OTHER ==
[2020-08-15] MEDS ORDERED: SODIUM CHLORIDE 0.9% 500 ML 500 ML IV STA (23:07)
[2020-08-15] MEDS ORDERED: SODIUM CHLORIDE 0.9% 1,000 ML IV STA ×2 (23:07)
[2020-08-15] MEDS ORDERED: MORPHINE SULFATE 4 MG/ML SYRINGE IV STA (23:07)
[2020-08-15] MEDS ORDERED: ONDANSETRON 4 MG/2 ML VIAL IVP STA (23:07)
[2020-08-15] MEDS ORDERED: PANTOPRAZOLE 40 MG/10 ML VIAL IVP STA (23:07)
--- NOTE | 2020-08-15 23:08 | ED ---
Abdominal Pain HPI - General Chief Complaint: Abdominal Pain Stated Complaint: abd pain Time Seen by Provider: 08/15/20 23:05 Source: EMS, RN notes reviewed, old records reviewed Mode of arrival: EMS - History of Present Illness Initial Comments: This is a 44-year-old male presents today for evaluation of abdominal pain. Patient is severely intoxicated is a very poor historian. Agitated combative and difficult to give history. Patient talking fall takes most of the time here in the emergency department screaming and yelling and swearing MD Complaint: abdominal pain -: unknown Location: periumbilical Radiation: none Migration to: no migration Severity: moderate Severity scale (1-10): 6 Consistency: constant Improves With: nothing Worsens With: nothing Associated Symptoms: nausea, vomiting Treatments Prior to Arrival: other - Related Data Home Medications Medication Instructions Recorded Confirmed Gabapentin 800 mg PO TID 05/10/17 07/25/20 Ergocalciferol [Vitamin D2 50,000 unit PO Q30D 09/15/19 07/25/20 (DRISDOL)] Fluticasone Nasal [place] [Flonase 2 spr EA NOSTRIL DAILY 07/25/20 07/25/20 Nasal [place]] Ibuprofen [Motrin] 800 mg PO Q8H PRN 07/25/20 07/25/20 Sildenafil [Revatio] 20 mg PO DAILY PRN 07/25/20 07/25/20 Zinc Gluconate [Zinc] 50 mg PO DAILY 07/25/20 07/25/20 atenoloL [Atenolol] 25 mg PO DAILY 07/25/20 07/25/20 hydrOXYzine pamoate [hydrOXYzine 25 mg PO HS PRN 07/25/20 07/25/20 PAMOATE] tiZANidine [Zanaflex] 4 mg PO Q6HR PRN 07/25/20 07/25/20 Previous Rx's Medication Instructions Recorded Thiamine [Vitamin B-1] 100 mg PO BID-W/MEALS 30 Days #60 07/26/20 tab Allergies Allergy/AdvReac Type Severity Reaction Status Date / Time No Known Allergies Allergy Verified 08/15/20 23:04 Review of Systems ROS Statement: Those systems with pertinent positive or pertinent negative responses have been documented in the HPI. ROS Other: All systems not noted in ROS Statement are negative. Past Medical History Past Medical History: Hypertension, Neurologic Disorder, Renal Disease Additional Past Medical History / Comment(s): right leg nerve damage/pain, right foot pain- states limping-Sees Dr. Dickey, insomnia. Dialysis Sep 2016-Dec 2016. hx FX nose Proteinuria, low back pain with numbness tingling right leg, 5 ruptured disc, neuropathy History of Any Multi-Drug Resistant Organisms: None Reported Past Surgical History: No Surgical Hx Reported Additional Past Surgical History / Comment(s): Rhinoplasty; pain procedures, states scraping of sinus Past Anesthesia/Blood Transfusion Reactions: No Reported Reaction Past Psychological History: Anxiety, Depression Smoking Status: Former smoker Past Alcohol Use History: Occasional Past Drug Use History: None Reported - Past Family History Mother Family Medical History: No Reported History Additional Family Medical History / Comment(s): . General Exam General appearance: alert, appears intoxicated, anxious Head exam: Present: atraumatic, normocephalic, normal inspection Eye exam: Present: normal appearance, PERRL, EOMI. Absent: scleral icterus, conjunctival injection, periorbital swelling ENT exam: Present: normal exam, mucous membranes moist Neck exam: Present: normal inspection. Absent: tenderness, meningismus, lymphadenopathy Respiratory exam: Present: normal lung sounds bilaterally. Absent: respiratory distress, wheezes, rales, rhonchi, stridor Cardiovascular Exam: Present: regular rate, normal rhythm, normal heart sounds. Absent: systolic murmur, diastolic murmur, rubs, gallop, clicks GI/Abdominal exam: Present: soft, normal bowel sounds. Absent: distended, tenderness, guarding, rebound, rigid Extremities exam: Present: normal inspection, full ROM, normal capillary refill. Absent: tenderness, pedal edema, joint swelling, calf tenderness Back exam: Present: normal inspection Neurological exam: Present: alert, oriented X3, CN II-XII intact Psychiatric exam: Present: normal affect, normal mood Skin exam: Present: warm, dry, intact, normal color. Absent: rash Course Vital Signs 08/15/20 23:01 Temperature 98 F Pulse Rate 64 Respiratory 18 Rate Blood Pressure 128/76 O2 Sat by Pulse 97 Oximetry - Reevaluation(s) Reevaluation #1: 08/16/20 01:12 Medical record is reviewed Reevaluation #2: 08/16/20 01:12 agitated and combative needing restraints - Consultations Consultation #1: Spoke with Dr. Saucedo who will admit this patient Procedures - Restraint - Face to Face Restraint Occurrence 1 Patient's Immediate Situation: Endangers self safety, Endangers others' safety, Violent behavior Patient's Reaction to the Intervention: Uncooperative, Angry, Belligerent Patient's Medical & Behavioral Condition: Awake, Anxious, Agitated Need to Continue or Terminate Restraint or Seclusion: Continue Face to Face Eval of Restraint Date: 08/16/20 Face to Face Eval of Restraint Time: 00:25 Medical Decision Making - Medical Decision Making 44 male DF for evaluation. Patient comes in with severe intoxication and abdominal pain. Patient does have acute pancreatitis, patient will be admitted for IV hydration and medication, symptomatically therapy - Lab Data Result diagrams: 08/15/20 23:10 08/15/20 23:10 Lab Results 08/15/20 08/15/20 08/15/20 Range/Units 23:10 23:10 23:10 WBC 10.8 H (3.8-10.6) k/uL RBC 5.34 (4.30-5.90) m/uL Hgb 15.5 D (13.0-17.5) gm/dL Hct 48.0 (39.0-53.0) % MCV 89.8 (80.0-100.0) fL MCH 28.9 (25.0-35.0) pg MCHC 32.2 (31.0-37.0) g/dL RDW 13.5 (11.5-15.5) % Plt Count 274 (150-450) k/uL MPV 7.0 Neutrophils % 41 % Lymphocytes % 48 % Monocytes % 4 % Eosinophils % 4 % Basophils % 0 % Neutrophils # 4.5 (1.3-7.7) k/uL Lymphocytes # 5.2 H (1.0-4.8) k/uL Monocytes # 0.5 (0-1.0) k/uL Eosinophils # 0.4 (0-0.7) k/uL Basophils # 0.1 (0-0.2) k/uL Reactive Lymphocytes Present Sodium 145 (137-145) mmol/L Potassium 4.3 (3.5-5.1) mmol/L Chloride 117 H (98-107) mmol/L Carbon Dioxide 21 L (22-30) mmol/L Anion Gap 7 mmol/L BUN 8 L (9-20) mg/dL Creatinine 0.95 (0.66-1.25) mg/dL Est GFR (CKD-EPI)AfAm >90 (>60 ml/min/1.73 sqM) Est GFR (CKD-EPI)NonAf >90 (>60 ml/min/1.73 sqM) Glucose 107 H (74-99) mg/dL Plasma Lactic Acid Valentino 1.9 (0.7-2.0) mmol/L Calcium 8.4 (8.4-10.2) mg/dL Total Bilirubin 0.2 (0.2-1.3) mg/dL AST 30 (17-59) U/L ALT 18 (4-49) U/L Alkaline Phosphatase 107 (38-126) U/L Creatine Kinase 96 (55-170) U/L Troponin I (0.000-0.034) ng/mL C-Reactive Protein <5.0 (<10.0) mg/L Total Protein 6.2 L (6.3-8.2) g/dL Albumin 3.4 L (3.5-5.0) g/dL Amylase 191 H (30-110) U/L Lipase 1377 H (23-300) U/L Serum Alcohol 398 H* mg/dL 08/15/20 Range/Units 23:10 WBC (3.8-10.6) k/uL RBC (4.30-5.90) m/uL Hgb (13.0-17.5) gm/dL Hct (39.0-53.0) % MCV (80.0-100.0) fL MCH (25.0-35.0) pg MCHC (31.0-37.0) g/dL RDW (11.5-15.5) % Plt Count (150-450) k/uL MPV Neutrophils % % Lymphocytes % % Monocytes % % Eosinophils % % Basophils % % Neutrophils # (1.3-7.7) k/uL Lymphocytes # (1.0-4.8) k/uL Monocytes # (0-1.0) k/uL Eosinophils # (0-0.7) k/uL Basophils # (0-0.2) k/uL Reactive Lymphocytes Sodium (137-145) mmol/L Potassium (3.5-5.1) mmol/L Chloride (98-107) mmol/L Carbon Dioxide (22-30) mmol/L Anion Gap mmol/L BUN (9-20) mg/dL Creatinine (0.66-1.25) mg/dL Est GFR (CKD-EPI)AfAm (>60 ml/min/1.73 sqM) Est GFR (CKD-EPI)NonAf (>60 ml/min/1.73 sqM) Glucose (74-99) mg/dL Plasma Lactic Acid Valentino (0.7-2.0) mmol/L Calcium (8.4-10.2) mg/dL Total Bilirubin (0.2-1.3) mg/dL AST (17-59) U/L ALT (4-49) U/L Alkaline Phosphatase (38-126) U/L Creatine Kinase (55-170) U/L Troponin I <0.012 (0.000-0.034) ng/mL C-Reactive Protein (<10.0) mg/L Total Protein (6.3-8.2) g/dL Albumin (3.5-5.0) g/dL Amylase (30-110) U/L Lipase (23-300) U/L Serum Alcohol mg/dL - Radiology Data Radiology results: report reviewed (X-ray abdominal series with chest is negative for acute disease), image reviewed Disposition Clinical Impression: Pancreatitis, Alcoholic hepatitis, Alcoholic intoxication, Chronic pain syndrome Disposition: ADMITTED IP TO THIS [facility] Condition: Fair Is patient prescribed a controlled substance at d/c from ED?: No Referrals: Silvia Rios MD [Primary Care Provider] - 1-2 days
[2020-08-15 23:19] LABS: Basophils # (A) 0.1 k/uL (0-0.2); Basophils % (A) 0 %; Eosinophils # (A) 0.4 k/uL (0-0.7); Eosinophils % (A) 4 %; HGB 15.5 gm/dL (13.0-17.5); Lymphocytes # (A) 5.2 k/uL (1.0-4.8); Lymphocytes % (A) 48 %; MCH 28.9 pg (25.0-35.0); MCHC 32.2 g/dL (31.0-37.0); MCV 89.8 fL (80.0-100.0); Monocytes # (A) 0.5 k/uL (0-1.0); Monocytes % (A) 4 %; Neutrophils # (A) 4.5 k/uL (1.3-7.7); Neutrophils % (A) 41 %; Platelet Count 274 k/uL (150-450); RBC 5.34 m/uL (4.30-5.90); RDW 13.5 % (11.5-15.5); WBC 10.8 k/uL (3.8-10.6)
[2020-08-15] MEDS ORDERED: LORazepam 2 MG/ML INJ IV STA (23:19)
[2020-08-15 23:32] LABS: ALT 18 U/L (4-49); AST 30 U/L (17-59); African American GFR (CKD) >90 (>60 ml/min/1.73 sqM); Albumin 3.4 g/dL (3.5-5.0); Alkaline Phosphatase 107 U/L (38-126); Amylase 191 U/L (30-110); Anion Gap 7 mmol/L; Blood Urea Nitrogen 8 mg/dL (9-20); C Reactive Protein <5.0 mg/L (<10.0); Calcium 8.4 mg/dL (8.4-10.2); Carbon Dioxide 21 mmol/L (22-30); Chloride 117 mmol/L (98-107); Creatine Kinase 96 U/L (55-170); Glucose 107 mg/dL (74-99); Lipase 1377 U/L (23-300); Non-African American GFR(CKD) >90 (>60 ml/min/1.73 sqM); Potassium 4.3 mmol/L (3.5-5.1); Sodium 145 mmol/L (137-145); Total Bilirubin 0.2 mg/dL (0.2-1.3); Total Protein 6.2 g/dL (6.3-8.2)
[2020-08-15 23:44] LABS: Alcohol 398 mg/dL
[2020-08-16 00:06] LABS: Reactive Lymphocytes Present
[2020-08-16] MEDS ORDERED: LORazepam 2 MG/ML INJ IV STA (00:23)
[2020-08-16] MEDS ORDERED: THIAMINE 100 MG/ML 2 ML VIAL IM STA (01:06)
[2020-08-16] MEDS ORDERED: NALOXONE 0.4 MG/ML 1 ML VIAL IV PRN (01:06)
[2020-08-16] MEDS ORDERED: LORazepam 2 MG/ML INJ IV PRN (01:06)
[2020-08-16] MEDS ORDERED: MORPHINE SULFATE 4 MG/ML SYRINGE IV PRN (01:06)
[2020-08-16] MEDS: LORazepam 2 MG/ML INJ IV PRN ×7 (01:56→15:14)
[2020-08-16] MEDS: 0.9% NACL WITH KCL 20 MEQ/L 1,000 ML IV SCH ×3 (03:28→17:55)
[2020-08-16] MEDS: MULTIVITAMINS, THERA 1 EACH TAB PO SCH (08:36)
[2020-08-16] MEDS: PANTOPRAZOLE 40 MG/10 ML VIAL IV SCH (09:23)
[2020-08-16] MEDS ORDERED: HALOPERIDOL LACTATE 5 MG/ML 1 ML VIAL IM STA (10:17)
[2020-08-16 10:55] LABS: Basophils % (A) 0 %; Eosinophils # (A) 0.1 k/uL (0-0.7); Eosinophils % (A) 1 %; HCT 42.7 % (39.0-53.0); Lymphocytes # (A) 1.8 k/uL (1.0-4.8); Lymphocytes % (A) 22 %; MCH 30.3 pg (25.0-35.0); MCHC 32.9 g/dL (31.0-37.0); Mean Platelet Volume 6.9; Monocytes # (A) 0.4 k/uL (0-1.0); Monocytes % (A) 5 %; Neutrophils # (A) 5.7 k/uL (1.3-7.7); Neutrophils % (A) 71 %; Platelet Count 211 k/uL (150-450); RBC 4.64 m/uL (4.30-5.90)
[2020-08-16 11:05] LABS: ALT 17 U/L (4-49); AST 28 U/L (17-59); African American GFR (CKD) >90 (>60 ml/min/1.73 sqM); Albumin 3.1 g/dL (3.5-5.0); Albumin/Globulin Ratio 1.2; Alkaline Phosphatase 99 U/L (38-126); Amylase 216 U/L (30-110); Anion Gap 7 mmol/L; Blood Urea Nitrogen 8 mg/dL (9-20); Calcium 8.1 mg/dL (8.4-10.2); Carbon Dioxide 21 mmol/L (22-30); Chloride 117 mmol/L (98-107); Globulin 2.6 g/dL; Glucose 85 mg/dL (74-99); Lipase 673 U/L (23-300); Magnesium 1.6 mg/dL (1.6-2.3); Non-African American GFR(CKD) >90 (>60 ml/min/1.73 sqM); Potassium 4.3 mmol/L (3.5-5.1); Sodium 145 mmol/L (137-145); Total Bilirubin 0.3 mg/dL (0.2-1.3); Total Protein 5.7 g/dL (6.3-8.2)
[2020-08-16] MEDS: GABAPENTIN 400 MG CAP PO SCH ×2 (15:00→21:30)
[2020-08-16] MEDS: THIAMINE 100 MG TAB PO SCH (15:01)
[2020-08-16] MEDS: HEPARIN SODIUM,PORCINE 5,000 UNIT/ML 1 ML VIAL SQ SCH (15:01)
[2020-08-16] MEDS: atenoloL 25 MG TAB PO SCH (15:03)
[2020-08-16] MEDS ORDERED: HALOPERIDOL LACTATE 5 MG/ML 1 ML VIAL IM PRN (15:07)
--- NOTE | 2020-08-16 20:46 | P.HPIM ---
History of Present Illness H&P Date: 08/16/20 Chief Complaint: Acute alcohol intoxication Patient is a 44-year-old male with a known history of hypertension, asthma, severe alcohol abuse and bilateral lower extremity peripheral neuropathy, chronic low back pain and currently everyday smoker presents to ER with alcohol intoxication. Patient was aggressive and combative and was restrained. Patient was screaming and Ehling in the emergency room. Currently patient is being continued on alcohol withdrawal protocol and also was given Haldol for severe agitation and getting out of the bed. Patient does have bedside sitter. Laboratory data showed WBC 10.8, hemoglobin 15.5, platelets 274, sodium 145, potassium 4.3, chloride 117, BUN 8 and creatinine 0.95 Total protein 6.2, albumin 3.4 amylase 191 and lipase 1377. Serum alcohol level was 398 on admission. Patient is tachycardic with heart rate 117 and saturating well on room air. Review of Systems Complete review of systems could not be obtained from the patient except as per HPI. Past Medical History Past Medical History: Asthma, Hypertension, Neurologic Disorder, Renal Disease Additional Past Medical History / Comment(s): Pt recently admitted to [facility] on 07/25/20 with acute alcohol pancreatitis/alcohol abuse/leukocytosis. Other hx: ETOH with drawal with tremors/seizure, bronchitis, neuropathy R leg/R foot pain/limps, chronic low back pain/5 disc ruptured, 2017 pt had dialtysis for 3 months but states kidneys are working fine now, insomnia. History of Any Multi-Drug Resistant Organisms: None Reported Past Surgical History: No Surgical Hx Reported Additional Past Surgical History / Comment(s): Rhinoplasty, sinus scrapped, L lower eyelid laceration/repair, R 2nd toe metatarsopharangeal arthroplasty. Past Anesthesia/Blood Transfusion Reactions: No Reported Reaction Smoking Status: Current every day smoker - Past Family History Mother Family Medical History: No Reported History Additional Family Medical History / Comment(s): Mother is healthy. Father Family Medical History: No Reported History Additional Family Medical History / Comment(s): Father is healthy Medications and Allergies Home Medications Medication Instructions Recorded Confirmed Type Gabapentin 800 mg PO TID 05/10/17 08/16/20 History Ergocalciferol [Vitamin D2 50,000 unit PO Q30D 09/15/19 08/16/20 History (DRISDOL)] Fluticasone Nasal [place] [Flonase 2 spr EA NOSTRIL DAILY 07/25/20 08/16/20 History Nasal [place]] Ibuprofen [Motrin] 800 mg PO Q8H PRN 07/25/20 08/16/20 History Sildenafil [Revatio] 20 mg PO DAILY PRN 07/25/20 08/16/20 History Zinc Gluconate [Zinc] 50 mg PO DAILY 07/25/20 08/16/20 History atenoloL [Atenolol] 25 mg PO DAILY 07/25/20 08/16/20 History hydrOXYzine pamoate [hydrOXYzine 25 mg PO HS PRN 07/25/20 08/16/20 History PAMOATE] tiZANidine [Zanaflex] 4 mg PO Q6HR PRN 07/25/20 08/16/20 History Thiamine [Vitamin B-1] 100 mg PO BID-W/MEALS 30 Days #60 07/26/20 08/16/20 Rx tab Albuterol Sulfate [Proair Hfa] 2 puff INHALATION RT-Q6H PRN 08/16/20 08/16/20 History busPIRone HCl [Buspar] 10 mg PO BID 08/16/20 08/16/20 History Allergies Allergy/AdvReac Type Severity Reaction Status Date / Time No Known Allergies Allergy Verified 08/16/20 07:40 Physical Exam Vitals: Vital Signs Temp Pulse Pulse Resp BP BP Pulse Ox 08/16/20 11:00 98.1 F 117 H 17 175/82 98 08/16/20 05:56 78 16 123/72 97 08/16/20 03:17 97.9 F 92 16 122/60 98 08/16/20 01:37 97.9 F 60 18 118/88 95 08/16/20 01:00 86 18 95 08/15/20 23:01 98 F 64 18 128/76 97 Intake and Output 08/15/20 08/16/20 08/16/20 22:59 06:59 14:59 Other: Voiding Method Urinal Diaper # Voids 1 Weight 87.543 kg 87.543 kg PHYSICAL EXAMINATION: Patient is lying in the bed comfortably, no acute distress, awake alert , agitated and trying to get out of bed.. HEENT: Normocephalic. Neck is supple. Pupils reactive. Nostrils clear. Oral cavity is moist. Ears reveal no drainage. Neck reveals no JVD, carotid bruits, or thyromegaly. CHEST EXAMINATION: Trachea is central. Symmetrical expansion. Lung goodwin clear to auscultation and percussion. CARDIAC: Normal S1, S2 with no gallops. No murmurs ABDOMEN: Soft. Bowel sounds normal. No organomegaly. No abdominal bruits. Extremities: reveal no edema. No clubbing or cyanosis Neurologically awake, alert, oriented x2-3 with well-coordinated movements. No focal deficits noted Skin: No rash or skin lesions. Psychiatric: Coperative. Nonsuicidal Musculoskeletal: No joint swelling or deformity. Normal range of motion. Results CBC & Chem 7: 08/16/20 10:36 08/16/20 10:36 Labs: Abnormal Lab Results - Last 24 Hours (Table) 08/15/20 08/15/20 08/16/20 Range/Units 23:10 23:10 10:36 WBC 10.8 H (3.8-10.6) k/uL Lymphocytes # 5.2 H (1.0-4.8) k/uL Chloride 117 H 117 H (98-107) mmol/L Carbon Dioxide 21 L 21 L (22-30) mmol/L BUN 8 L 8 L (9-20) mg/dL Glucose 107 H (74-99) mg/dL Calcium 8.1 L (8.4-10.2) mg/dL Total Protein 6.2 L 5.7 L (6.3-8.2) g/dL Albumin 3.4 L 3.1 L (3.5-5.0) g/dL Amylase 191 H 216 H (30-110) U/L Lipase 1377 H 673 H (23-300) U/L Serum Alcohol 398 H* mg/dL Thrombosis Risk Factor Assmnt - DVT/VTE Prophylaxis DVT/VTE Prophylaxis: Pharmacologic Prophylaxis ordered - Choose All That Apply Any of the Below Risk Factors Present?: Yes Each Factor Represents 1 point: Age 41-60 years, Obesity (BMI >25) Other Risk Factors: No Other congenital or acquired thrombophilia - If yes, enter type in comment: No Thrombosis Risk Factor Assessment Total Risk Factor Score: 2 Thrombosis Risk Factor Assessment Level: Low Risk Assessment and Plan Assessment: Acute alcohol intoxication Acute alcoholic pancreatitis Severe alcohol withdrawal symptoms and possible DTs Chronic low back pain Bilateral right leg cramps and neuropathy due to alcohol abuse Hypertension controlled DVT prophylaxis and GI prophylaxis. Plan: Patient will be continued on IV hydration with normal saline and potassium supplementation. Continue with alcohol withdrawal protocol. Multivitamins and thiamine. Haldol as needed for agitation and continue with bedside sitter. Patient will be started on clear liquid diet and advance as tolerated. Follow- up closely and further recommendations based on the clinical course. Time with Patient: Greater than 30
[2020-08-16] MEDS: busPIRone HCl 10 MG TAB PO SCH (21:30)
[2020-08-17] MEDS: HEPARIN SODIUM,PORCINE 5,000 UNIT/ML 1 ML VIAL SQ SCH ×2 (00:15→08:11)
[2020-08-17] MEDS: 0.9% NACL WITH KCL 20 MEQ/L 1,000 ML IV SCH (02:05)
[2020-08-17 06:39] LABS: Basophils % (A) 0 %; Eosinophils # (A) 0.2 k/uL (0-0.7); Eosinophils % (A) 4 %; HCT 41.5 % (39.0-53.0); HGB 13.7 gm/dL (13.0-17.5); Lymphocytes # (A) 1.7 k/uL (1.0-4.8); Lymphocytes % (A) 32 %; MCH 30.5 pg (25.0-35.0); MCV 92.4 fL (80.0-100.0); Monocytes # (A) 0.4 k/uL (0-1.0); Monocytes % (A) 9 %; Neutrophils # (A) 2.7 k/uL (1.3-7.7); Neutrophils % (A) 53 %; Platelet Count 182 k/uL (150-450); RBC 4.49 m/uL (4.30-5.90); RDW 12.9 % (11.5-15.5); WBC 5.1 k/uL (3.8-10.6)
[2020-08-17] MEDS: GABAPENTIN 400 MG CAP PO SCH (08:11)
[2020-08-17] MEDS: THIAMINE 100 MG TAB PO SCH (08:11)
[2020-08-17] MEDS: PANTOPRAZOLE 40 MG/10 ML VIAL IV SCH (08:11)
[2020-08-17] MEDS: busPIRone HCl 10 MG TAB PO SCH (08:11)
[2020-08-17] MEDS: MULTIVITAMINS, THERA 1 EACH TAB PO SCH (08:11)
[2020-08-17] MEDS: atenoloL 25 MG TAB PO SCH (08:11)
[2020-08-17 11:42] VITALS: BP 130/76; PULSE 66; RESP 16; TEMP 98
[2020-08-17 14:09] LABS: African American GFR (CKD) 125.9 (60.0-200.0); Albumin 3.1 g/dL (3.80-4.90); Albumin/Globulin Ratio 1.94 (1.60-3.17); Anion Gap 2.8 mmol/L (4.00-12.00); BUN/Creat Ratio 11.25 Ratio (12.00-20.00); Calcium 8.2 mg/dL (8.7-10.3); Carbon Dioxide 27.2 mmol/L (21.6-31.8); Globulin 1.6 g/dL (1.6-3.3); Magnesium 1.7 mg/dL (1.5-2.4); Non-African American GFR(CKD) 108.6 (60.0-200.0); Phosphorus 2.8 mg/dL (2.4-5.1); Potassium 4.5 mmol/L (3.5-5.5); Total Bilirubin 0.5 mg/dL (0.2-1.2); Total Protein 4.7 g/dL (6.2-8.2)
== END 2020-08-17 14:45 | disposition home or self-care (01) | DRG 896 ==
LOC: EC 23:01 → 6NMEDSUR 08-16 01:11
PROVIDERS: ADMIT Hospitalist; ATTEND Hospitalist
DX: F10.229 Alcohol dependence with intoxication, unspecified (principal); K85.20 Alcohol induced acute pancreatitis without necrosis or infection; F10.239 Alcohol dependence with withdrawal, unspecified; G62.1 Alcoholic polyneuropathy; K70.10 Alcoholic hepatitis without ascites; I10 Essential (primary) hypertension; J45.909 Unspecified asthma, uncomplicated; F32.9 Major depressive disorder, single episode, unspecified; F41.9 Anxiety disorder, unspecified; G89.4 Chronic pain syndrome; M54.5 Low back pain; G47.00 Insomnia, unspecified; Y90.8 Blood alcohol level of 240 mg/100 ml or more; Z71.6 Tobacco abuse counseling; F17.200 Nicotine dependence, unspecified, uncomplicated; Z79.899 Other long term (current) drug therapy; Z87.448 Personal history of other diseases of urinary system; Z87.2 Personal history of diseases of the skin and subcutaneous tissue
CPT/HCPCS: 36415; 80053; 80320; 82150; 82550; 83605; 83690; 83735; 84100; 84484; 85025; 86140; 96361; 96374; 96375; 96376; 99285

== ENCOUNTER 2021-03-09 11:49 | Inpatient (IN) | payer OTHER ==
[2021-03-09] MEDS ORDERED: SODIUM CHLORIDE 0.9% 1,000 ML IV STA ×2 (12:07→12:31)
[2021-03-09] MEDS ORDERED: HYDROmorphone 1 MG/ML 1 ML SYRINGE IVP STA (12:22)
[2021-03-09] MEDS ORDERED: ONDANSETRON 4 MG/2 ML VIAL IVP STA (12:22)
--- NOTE | 2021-03-09 12:28 | ED ---
Abdominal Pain HPI - General Chief Complaint: Abdominal Pain Stated Complaint: Pancreatitis Time Seen by Provider: 03/09/21 12:05 Source: patient, RN notes reviewed Mode of arrival: ambulatory Limitations: no limitations - History of Present Illness Initial Comments: This is a 45-year-old male with a history of alcoholic pancreatitis as well as ascites. Kidney injury in the past he states he has not drink any alcohol for 2 months who is here today with complaints of sharp severe abdominal pain that radiates up into his left chest also to his back he has nausea decreased oral intake unable to sleep because the pain states the pain is pressing 9/10 severity. No fevers chills or sweats however. He states he was recently in [facility] he was seen at [facility]'s down there for the same type pain he did have some drainage out of ascites at that time. He also complains of a distended abdomen today. He does have an appointment to see Dr. Gabriella Truong and the 13 of this month. Other complaints modifying factors MD Complaint: abdominal pain - Related Data Home Medications Medication Instructions Recorded Confirmed Gabapentin [Neurontin] 100 mg PO DAILY 03/09/21 03/09/21 Lactulose 10 gm PO DAILY 03/09/21 03/09/21 Allergies Allergy/AdvReac Type Severity Reaction Status Date / Time No Known Allergies Allergy Verified 03/09/21 12:51 Review of Systems ROS Statement: Those systems with pertinent positive or pertinent negative responses have been documented in the HPI. ROS Other: All systems not noted in ROS Statement are negative. Past Medical History Past Medical History: Asthma, Hypertension, Neurologic Disorder, Renal Disease Additional Past Medical History / Comment(s): Pt recently admitted to [facility] on 07/25/20 with acute alcohol pancreatitis/alcohol abuse/leukocytosis. Other hx: ETOH with drawal with tremors/seizure, bronchitis, neuropathy R leg/R foot pain/limps, chronic low back pain/5 disc ruptured, 2017 pt had dialtysis for 3 months but states kidneys are working fine now, insomnia. History of Any Multi-Drug Resistant Organisms: None Reported Past Surgical History: No Surgical Hx Reported Additional Past Surgical History / Comment(s): Rhinoplasty, sinus scrapped, L lower eyelid laceration/repair, R 2nd toe metatarsopharangeal arthroplasty. Past Anesthesia/Blood Transfusion Reactions: No Reported Reaction Past Psychological History: Anxiety, Depression Smoking Status: Current every day smoker Past Alcohol Use History: None Reported Past Drug Use History: None Reported - Past Family History Mother Family Medical History: No Reported History Additional Family Medical History / Comment(s): Mother is healthy. Father Family Medical History: No Reported History Additional Family Medical History / Comment(s): Father is healthy General Exam - General Exam Comments Initial Comments: This is a well-developed sec appearing male who is awake alert oriented 3 Limitations: no limitations General appearance: alert, in no apparent distress Head exam: Present: atraumatic, normocephalic, normal inspection Eye exam: Present: normal appearance, PERRL, EOMI. Absent: scleral icterus, conjunctival injection, periorbital swelling ENT exam: Present: mucous membranes dry Neck exam: Present: normal inspection. Absent: tenderness, meningismus, lymphadenopathy Respiratory exam: Present: normal lung sounds bilaterally. Absent: respiratory distress, wheezes, rales, rhonchi, stridor Cardiovascular Exam: Present: normal rhythm, tachycardia, normal heart sounds. Absent: systolic murmur, diastolic murmur, rubs, gallop, clicks GI/Abdominal exam: Present: soft, distended, tenderness (Distended abdomen consistent with ascites some tenderness palpation no guarding or rebound.), normal bowel sounds. Absent: guarding, rebound, rigid, bruit, pulsatile mass, hernia Rectal exam: Present: deferred Extremities exam: Present: normal inspection, full ROM, normal capillary refill. Absent: tenderness, pedal edema, joint swelling, calf tenderness Back exam: Present: normal inspection Neurological exam: Present: alert, oriented X3, CN II-XII intact Psychiatric exam: Present: normal affect, normal mood Skin exam: Present: warm, dry, intact, normal color. Absent: rash Course Vital Signs 03/09/21 11:50 Temperature 97.5 F L Pulse Rate 131 H Respiratory 18 Rate Blood Pressure 127/84 O2 Sat by Pulse 100 Oximetry - Reevaluation(s) Reevaluation #1: 03/09/21 13:32 Reevaluation patient does demonstrate evidence of some improvement after the Dilaudid given his have recurrence of his pain Medical Decision Making - Medical Decision Making I did discuss the findings with the patient and family members patient does demonstrate evidence of acute chronic pancreatitis. Patient will be admitted with GI consultation - Lab Data Result diagrams: 03/09/21 12:33 03/09/21 12:33 Lab Results 03/09/21 03/09/21 03/09/21 Range/Units 12:33 12:33 12:33 WBC 10.0 (3.8-10.6) k/uL RBC 3.32 L (4.30-5.90) m/uL Hgb 9.4 L (13.0-17.5) gm/dL Hct 27.3 L (39.0-53.0) % MCV 82.3 (80.0-100.0) fL MCH 28.3 (25.0-35.0) pg MCHC 34.4 (31.0-37.0) g/dL RDW 14.3 (11.5-15.5) % Plt Count 657 H (150-450) k/uL MPV 7.2 Neutrophils % 74 % Lymphocytes % 12 % Monocytes % 7 % Eosinophils % 6 % Basophils % 1 % Neutrophils # 7.3 (1.3-7.7) k/uL Lymphocytes # 1.2 (1.0-4.8) k/uL Monocytes # 0.7 (0-1.0) k/uL Eosinophils # 0.6 (0-0.7) k/uL Basophils # 0.1 (0-0.2) k/uL Hypochromasia Slight PT (9.0-12.0) sec INR (<1.2) APTT (22.0-30.0) sec Sodium 138 (137-145) mmol/L Potassium 4.2 (3.5-5.1) mmol/L Chloride 104 (98-107) mmol/L Carbon Dioxide 24 (22-30) mmol/L Anion Gap 10 mmol/L BUN 21 H (9-20) mg/dL Creatinine 0.73 (0.66-1.25) mg/dL Est GFR (CKD-EPI)AfAm >90 (>60 ml/min/1.73 sqM) Est GFR (CKD-EPI)NonAf >90 (>60 ml/min/1.73 sqM) Glucose 111 H (74-99) mg/dL Plasma Lactic Acid Valentino 1.1 (0.7-2.0) mmol/L Calcium 9.0 (8.4-10.2) mg/dL Total Bilirubin 0.2 (0.2-1.3) mg/dL AST 31 (17-59) U/L ALT 27 (4-49) U/L Alkaline Phosphatase 158 H (38-126) U/L Ammonia <9 (<30) umol/L Creatine Kinase 28 L (55-170) U/L Troponin I (0.000-0.034) ng/mL Total Protein 6.5 (6.3-8.2) g/dL Albumin 3.2 L (3.5-5.0) g/dL Amylase 1270 H* (30-110) U/L Lipase 4264 H (23-300) U/L Serum Alcohol <10 mg/dL 03/09/21 03/09/21 Range/Units 12:33 12:33 WBC (3.8-10.6) k/uL RBC (4.30-5.90) m/uL Hgb (13.0-17.5) gm/dL Hct (39.0-53.0) % MCV (80.0-100.0) fL MCH (25.0-35.0) pg MCHC (31.0-37.0) g/dL RDW (11.5-15.5) % Plt Count (150-450) k/uL MPV Neutrophils % % Lymphocytes % % Monocytes % % Eosinophils % % Basophils % % Neutrophils # (1.3-7.7) k/uL Lymphocytes # (1.0-4.8) k/uL Monocytes # (0-1.0) k/uL Eosinophils # (0-0.7) k/uL Basophils # (0-0.2) k/uL Hypochromasia PT 11.7 (9.0-12.0) sec INR 1.1 (<1.2) APTT 25.0 (22.0-30.0) sec Sodium (137-145) mmol/L Potassium (3.5-5.1) mmol/L Chloride (98-107) mmol/L Carbon Dioxide (22-30) mmol/L Anion Gap mmol/L BUN (9-20) mg/dL Creatinine (0.66-1.25) mg/dL Est GFR (CKD-EPI)AfAm (>60 ml/min/1.73 sqM) Est GFR (CKD-EPI)NonAf (>60 ml/min/1.73 sqM) Glucose (74-99) mg/dL Plasma Lactic Acid Valentino (0.7-2.0) mmol/L Calcium (8.4-10.2) mg/dL Total Bilirubin (0.2-1.3) mg/dL AST (17-59) U/L ALT (4-49) U/L Alkaline Phosphatase (38-126) U/L Ammonia (<30) umol/L Creatine Kinase (55-170) U/L Troponin I <0.012 (0.000-0.034) ng/mL Total Protein (6.3-8.2) g/dL Albumin (3.5-5.0) g/dL Amylase (30-110) U/L Lipase (23-300) U/L Serum Alcohol mg/dL - EKG Data -: EKG Interpreted by Me EKG shows normal: sinus rhythm EKG Comments: Sinus tachycardia rate 111. Interval 142 QRS 82 daily since QTC 322/437 nonspecific anterior configuration - Radiology Data Radiology results: report reviewed (Imaging reviewed no evidence of acute proces ses x-rays consistent with ascites), image reviewed Disposition Clinical Impression: Acute pancreatitis, Abdominal pain, Ascites, Chronic anemia Disposition: ADMITTED IP TO THIS [facility] Condition: Fair Referrals: [facility]ERR[facility] - 1-2 days
[2021-03-09] MEDS ORDERED: SODIUM CHLORIDE 0.9% 500 ML 500 ML IV STA (12:31)
[2021-03-09 12:43] LABS: Basophils # (A) 0.1 k/uL (0-0.2); Basophils % (A) 1 %; Eosinophils # (A) 0.6 k/uL (0-0.7); Eosinophils % (A) 6 %; HCT 27.3 % (39.0-53.0); HGB 9.4 gm/dL (13.0-17.5); Hypochromasia Slight; Lymphocytes # (A) 1.2 k/uL (1.0-4.8); Lymphocytes % (A) 12 %; MCH 28.3 pg (25.0-35.0); MCHC 34.4 g/dL (31.0-37.0); MCV 82.3 fL (80.0-100.0); Mean Platelet Volume 7.2; Monocytes # (A) 0.7 k/uL (0-1.0); Monocytes % (A) 7 %; Neutrophils # (A) 7.3 k/uL (1.3-7.7); Neutrophils % (A) 74 %; Platelet Count 657 k/uL (150-450); RBC 3.32 m/uL (4.30-5.90); RDW 14.3 % (11.5-15.5)
[2021-03-09 12:56] LABS: INR 1.1 (<1.2); Lactic Acid, Venous 1.1 mmol/L (0.7-2.0); Prothrombin Time 11.7 sec (9.0-12.0)
[2021-03-09 12:58] LABS: ALT 27 U/L (4-49); AST 31 U/L (17-59); African American GFR (CKD) >90 (>60 ml/min/1.73 sqM); Albumin 3.2 g/dL (3.5-5.0); Alcohol <10 mg/dL; Alkaline Phosphatase 158 U/L (38-126); Anion Gap 10 mmol/L; Blood Urea Nitrogen 21 mg/dL (9-20); Carbon Dioxide 24 mmol/L (22-30); Chloride 104 mmol/L (98-107); Creatine Kinase 28 U/L (55-170); Glucose 111 mg/dL (74-99); Non-African American GFR(CKD) >90 (>60 ml/min/1.73 sqM); Potassium 4.2 mmol/L (3.5-5.1); Sodium 138 mmol/L (137-145); Total Bilirubin 0.2 mg/dL (0.2-1.3); Total Protein 6.5 g/dL (6.3-8.2)
[2021-03-09 13:16] LABS: Amylase 1270 U/L (30-110)
[2021-03-09 13:28] LABS: Lipase 4264 U/L (23-300)
--- NOTE | 2021-03-09 13:28 | XR ---
EXAMINATION TYPE: XR KUB DATE OF EXAM: 03/09/2021 1:10 PM CLINICAL HISTORY: Abdominal pain TECHNIQUE: Single supine KUB image of the abdomen is obtained. COMPARISON: None. FINDINGS: Upright view of the abdomen shows no free air. Multiple air-fluid levels are seen. No dilat ed loops of large or small bowel. Possibility of gas within the colon. IMPRESSION: 1. No dilated loops of large or small bowel. No evidence of free air. Paucity of gas through the colo n. Continued follow-up is recommended.
[2021-03-09] MEDS ORDERED: NALOXONE 0.4 MG/ML 1 ML VIAL IV PRN (13:34)
[2021-03-09] MEDS ORDERED: ONDANSETRON 4 MG/2 ML VIAL IVP PRN (13:34)
[2021-03-09] MEDS ORDERED: fentaNYL (PF) 50 MCG/ML 2 ML AMP IVP STA (14:05)
[2021-03-09] MEDS: HYDROmorphone 1 MG/ML 1 ML SYRINGE IVP PRN ×3 (15:31→21:41)
[2021-03-09] MEDS: NICOTINE 14MG/24HR PATCH TRANSDERM SCH (15:41)
[2021-03-09 15:46] LABS: Amorphous Sediment,Urine Rare /hpf; Appearance,Urine Cloudy (Clear); Bilirubin,Urine Negative (Negative); Blood,Urine Negative (Negative); Color,Urine Yellow; Glucose,Urine (UA) Negative (Negative); Granular Casts,Urine 1 /lpf (0); Hyaline Casts,Urine 31 /lpf (0-2); Ketones,Urine Trace (Negative); Leukocyte Esterase,Urine Negative (Negative); Mucus,Urine Many /hpf; Nitrite,Urine Negative (Negative); PH, Urine 6.5 (5.0-8.0); Protein,Urine 1+ (Negative); RBC,Urine 3 /hpf (0-5); Specific Gravity,Urine 1.028 (1.001-1.035); Squamous Epithelial Cell,Urine <1 /hpf (0-4); WBC,Urine 4 /hpf (0-5)
[2021-03-09] MEDS ORDERED: SODIUM CHLORIDE 0.9% 1,000 ML with MVI, ADULT NO.4 WITH VIT K 10 ML, THIAMINE 100 MG, F... IV ONE ×4 (17:28)
[2021-03-09] MEDS: PANTOPRAZOLE 40 MG/10 ML VIAL IV SCH (20:41)
[2021-03-09] MEDS: HEPARIN SODIUM,PORCINE/PF 5,000 UNIT/0.5 ML SYRINGE SQ SCH (20:41)
--- NOTE | 2021-03-09 22:13 | P.HPIM ---
History of Present Illness H&P Date: 03/09/21 Chief Complaint: Abdominal pain Patient is a 45-year-old male with a known history of hypertension, alcohol abuse and history of acute alcoholic pancreatitis, asthma, anxiety/depression currently everyday smoker presents to ER with complaints of abdominal distention and epigastric abdominal pain. Patient states that he is has not drink for the past 2 months but recently went to [place] where he has been drinking heavily. Patient came back to [place] to 4 days ago. He started having abdominal pain mainly in the epigastric region radiating to the left side of the abdomen associated with nausea and vomiting. patient is unable to take any oral intake and pain intensity at 9 out of 10 in severity. no complaints of chest pain or shortness breath. no fever no chills. patient had previous paracentesis about a month ago patient is supposed to follow-up with on of this month. Denies any leg swelling. No complaints of diffuse abdominal pain. Laboratory data showed WBC 10.0 hemoglobin 9.4 and platelets 657 Sodium 138 potassium 4.2 chloride 104 BUN 21 creatinine 0.73 Albumin 3.2 Amylase 1270 and lipase 4264 Urinalysis is negative for infection. KUB x-ray showed no dilated loops of small bowel to small bowel. No evidence of free air. Paucity of gas through the colon. EKG showed sinus tachycardia with heart rate 111 Review of Systems Constitutional: Patient denies any fever or chills . generalized weakness. No weight loss. Abdomen: Abdominal distention and epigastric pain. Does have nausea no episodes of vomiting. No diarrhea. Cardiovascular: Patient denies any chest pain or short of breath no palpitations. Respiratory: patient denied any cough or sputum production. No shortness of breath Neurologic: Patient denied any numbness or tingling headache. Musculoskeletal: Patient denies any complaints of joint swelling or deformity. Skin: Negative Psychiatric: Negative Endocrine: No heat or cold intolerance. No recent weight gain. Genitourinary: No dysuria or hematuria. All other 14 point ROS negative except the above Past Medical History Past Medical History: Asthma, Hypertension, Neurologic Disorder, Renal Disease Additional Past Medical History / Comment(s): Pt recently admitted to [facility] on 07/25/20 with acute alcohol pancreatitis/alcohol abuse/leukocytosis. Other hx: ETOH with drawal with tremors/seizure, bronchitis, neuropathy R leg/R foot pain/limps, chronic low back pain/5 disc ruptured, 2017 pt had dialtysis for 3 months but states kidneys are working fine now, insomnia. History of Any Multi-Drug Resistant Organisms: None Reported Past Surgical History: No Surgical Hx Reported Additional Past Surgical History / Comment(s): Rhinoplasty, sinus scrapped, L lower eyelid laceration/repair, R 2nd toe metatarsopharangeal arthroplasty. Past Anesthesia/Blood Transfusion Reactions: No Reported Reaction Past Psychological History: Anxiety, Depression Smoking Status: Current every day smoker Past Alcohol Use History: None Reported Past Drug Use History: None Reported - Past Family History Mother Family Medical History: No Reported History Additional Family Medical History / Comment(s): Mother is healthy. Father Family Medical History: No Reported History Additional Family Medical History / Comment(s): Father is healthy Medications and Allergies Home Medications Medication Instructions Recorded Confirmed Type Gabapentin [Neurontin] 100 mg PO DAILY 03/09/21 03/09/21 History Lactulose 10 gm PO DAILY 03/09/21 03/09/21 History Allergies Allergy/AdvReac Type Severity Reaction Status Date / Time No Known Allergies Allergy Verified 03/09/21 12:51 Physical Exam Vitals: Vital Signs Temp Pulse Resp BP Pulse Ox 03/09/21 17:09 102 H 18 136/94 96 03/09/21 15:58 99 18 133/89 98 03/09/21 15:21 102 H 18 110/75 98 03/09/21 14:03 102 H 18 131/90 96 03/09/21 12:30 115 H 23 124/88 99 03/09/21 11:50 97.5 F L 131 H 18 127/84 100 Intake and Output 03/09/21 03/09/21 03/09/21 06:59 14:59 22:59 Other: Weight 83.007 kg PHYSICAL EXAMINATION: Patient is lying in the bed comfortably, no acute distress, awake alert and oriented.. HEENT: Normocephalic. Neck is supple. Pupils reactive. Nostrils clear. Oral cavity is moist. Ears reveal no drainage. Neck reveals no JVD, carotid bruits, or thyromegaly. CHEST EXAMINATION: Trachea is central. Symmetrical expansion. Lung goodwin clear to auscultation and percussion. CARDIAC: Normal S1, S2 with no gallops. No murmurs ABDOMEN: Abdominal is soft distended encephalitis no guarding or rigidity. Mild epigastric tenderness.. Extremities: reveal no edema. No clubbing or cyanosis Neurologically awake, alert, oriented x3 with well-coordinated movements. No focal deficits noted Skin: No rash or skin lesions. Psychiatric: Coperative. Nonsuicidal Musculoskeletal: No joint swelling or deformity. Normal range of motion. Results CBC & Chem 7: 03/09/21 12:33 03/09/21 12:33 Labs: Abnormal Lab Results - Last 24 Hours (Table) 03/09/21 03/09/21 03/09/21 Range/Units 12:33 12:33 12:33 RBC 3.32 L (4.30-5.90) m/uL Hgb 9.4 L (13.0-17.5) gm/dL Hct 27.3 L (39.0-53.0) % Plt Count 657 H (150-450) k/uL BUN 21 H (9-20) mg/dL Glucose 111 H (74-99) mg/dL Alkaline Phosphatase 158 H (38-126) U/L Creatine Kinase 28 L (55-170) U/L Albumin 3.2 L (3.5-5.0) g/dL Amylase 1270 H* (30-110) U/L Lipase 4264 H (23-300) U/L Urine Protein 1+ H (Negative) Urine Ketones Trace H (Negative) Amorphous Sediment Rare H (None) /hpf Hyaline Casts 31 H (0-2) /lpf Urine Mucus Many H (None) /hpf Assessment and Plan Assessment: Acute pancreatitis likely alcoholic pancreatitis Recurrent ascites Severe alcohol abuse Chronic low back pain Bilateral lower extremity peripheral neuropathy. Alcohol-related Hypertension DVT and GI prophylaxis Asthma stable Anxiety/depression Currently everyday smoker Plan: Patient will be continued on IV hydration and nothing by mouth. Continue with pain management with Dilaudid. GI and DVT prophylaxis. Ultrasound-guided paracentesis was ordered. No signs of infection at this time. Follow-up fluid analysis. Gastroenterology was consulted for evaluation. Continue to follow closely. Patient was counseled extensively for alcohol abstinence. Monitor for alcohol withdrawal symptoms. Prognosis guarded at this time. Time with Patient: Greater than 30
[2021-03-10] MEDS: HYDROmorphone 1 MG/ML 1 ML SYRINGE IVP PRN ×8 (00:33→23:36)
[2021-03-10 05:47] LABS: Basophils % (A) 1 %; Eosinophils # (A) 0.6 k/uL (0-0.7); Eosinophils % (A) 10 %; HCT 23.5 % (39.0-53.0); Hypochromasia Slight; Lymphocytes # (A) 1.2 k/uL (1.0-4.8); Lymphocytes % (A) 20 %; MCH 27.7 pg (25.0-35.0); MCHC 33.3 g/dL (31.0-37.0); MCV 83.2 fL (80.0-100.0); Mean Platelet Volume 6.9; Monocytes # (A) 0.5 k/uL (0-1.0); Monocytes % (A) 8 %; Neutrophils # (A) 3.4 k/uL (1.3-7.7); Neutrophils % (A) 58 %; Platelet Count 506 k/uL (150-450); RBC 2.82 m/uL (4.30-5.90); RDW 14.4 % (11.5-15.5); WBC 5.8 k/uL (3.8-10.6)
[2021-03-10 05:56] LABS: HGB 7.8 gm/dL (13.0-17.5)
[2021-03-10] MEDS: PANTOPRAZOLE 40 MG/10 ML VIAL IV SCH ×2 (08:29→19:56)
[2021-03-10] MEDS: HEPARIN SODIUM,PORCINE/PF 5,000 UNIT/0.5 ML SYRINGE SQ SCH ×2 (08:29→19:56)
[2021-03-10] MEDS: GABAPENTIN 100 MG CAP PO SCH (08:29)
[2021-03-10] MEDS: NICOTINE 14MG/24HR PATCH TRANSDERM SCH (08:29)
[2021-03-10] MEDS: LACTULOSE 20 GM/30 ML CUP PO SCH (08:29)
[2021-03-10] MEDS: FUROSEMIDE 20 MG TAB PO SCH (09:25)
[2021-03-10] MEDS: SPIRONOLACTONE 25 MG TAB PO SCH (09:25)
[2021-03-10] MEDS: SODIUM CHLORIDE 0.9% 1,000 ML IV SCH ×2 (09:26→17:45)
[2021-03-10 09:53] LABS: African American GFR (CKD) 140.7 (60.0-200.0); Albumin/Globulin Ratio 1.25 (1.60-3.17); Anion Gap 8.5 mmol/L (4.00-12.00); BUN/Creat Ratio 31.67 Ratio (12.00-20.00); Calcium 8.2 mg/dL (8.7-10.3); Carbon Dioxide 21.5 mmol/L (21.6-31.8); Globulin 2.4 g/dL (1.6-3.3); Non-African American GFR(CKD) 121.4 (60.0-200.0); Potassium 4.2 mmol/L (3.5-5.5); Total Bilirubin 0.3 mg/dL (0.2-1.2); Total Protein 5.4 g/dL (6.2-8.2)
--- NOTE | 2021-03-10 11:50 | US ---
EXAMINATION TYPE: US abdomen limited DATE OF EXAM: 03/10/2021 COMPARISON: NONE CLINICAL HISTORY: ascites, pancreatitis. distended abd All four quadrants scanned and severe ascites seen throughout scan IMPRESSION: Large amount of ascites. Exam.
--- NOTE | 2021-03-10 17:02 | P.CONS ---
History of Present Illness - Reason for Consult Consult date: 03/10/21 Pancreatitis Requesting physician: Gaviota Leach - Chief Complaint Abdominal pain - History of Present Illness This is a 45-year-old white male who presented to the emergency department with complaints of severe epigastric pain which has gotten worse over the last couple days. He states actually he started having abdominal pain 2 months ago. His past medical history includes pancreatitis, alcohol abuse, current smoker, asthma, hypertension, neurological disorder, and history of renal disease which required hemodialysis. He had also been noticing that his abdomen was becoming distended. He was recently in [facility] he was drinking heavily up to 8-10 beers a day along with mixed drinks. He went to the hospital 2-3 times while he was in [place] for pancreatitis as well as abdominal ascites. He states he had a paracentesis 1.5 to 2 weeks ago while in [place], this was his first paracentesis. His first diagnosis he states was in August 2020. He denies any fever, nausea, or vomiting. He denies any previous EGD or colonoscopy. He has not been on any diuretics. He denies any diagnosis of liver cirrhosis in the past. He states he has appointment with Dr. Lees on March 15. His admitting labs include WBC 10, hemoglobin 9.4, hematocrit 27.3, platelet count 657,000, INR 1.0, total bilirubin 0.2, alkaline phosphatase 158, AST 31, ALT 27, amylase 1270, lipase 4264. Review of Systems REVIEW OF SYSTEMS: CARDIOPULMONARY: No chest pain or shortness of breath. Gastrointestinal: Demerol pain and distention. No nausea or vomiting. No hematemesis, coffee-ground emesis. No rectal bleeding, or melena. Decreased appetite. GENITOURINARY: No dysuria or hematuria. MUSCULOSKELETAL: Reports normal range of motion., Joint pain. SKIN: No rashes. No jaundice. ENDOCRINE: No chills, fevers. No excessive weight gain or loss. No polydipsia or polyuria. PSYCHIATRIC: Unremarkable. NEUROLOGY: No change in mental status. Denies dizziness, headache. ENT: Vision unremarkable. CONSTITUTIONAL: No recent weight loss. No fever, chills, night sweats. Past Medical History Past Medical History: Asthma, Hypertension, Neurologic Disorder, Renal Disease Additional Past Medical History / Comment(s): Pt recently admitted to [facility] on 07/25/20 with acute alcohol pancreatitis/alcohol abuse/leukocytosis. Other hx: ETOH with drawal with tremors/seizure, bronchitis, neuropathy R leg/R foot pain/limps, chronic low back pain/5 disc ruptured, 2017 pt had dialtysis for 3 months but states kidneys are working fine now, insomnia. History of Any Multi-Drug Resistant Organisms: None Reported Past Surgical History: No Surgical Hx Reported Additional Past Surgical History / Comment(s): Rhinoplasty, sinus scrapped, L lower eyelid laceration/repair, R 2nd toe metatarsopharangeal arthroplasty. Past Anesthesia/Blood Transfusion Reactions: No Reported Reaction Past Psychological History: Anxiety, Depression Smoking Status: Current every day smoker Past Alcohol Use History: None Reported Past Drug Use History: None Reported - Past Family History Mother Family Medical History: No Reported History Additional Family Medical History / Comment(s): Mother is healthy. Father Family Medical History: No Reported History Additional Family Medical History / Comment(s): Father is healthy Medications and Allergies Home Medications Medication Instructions Recorded Confirmed Type Gabapentin [Neurontin] 100 mg PO DAILY 03/09/21 03/09/21 History Lactulose 10 gm PO DAILY 03/09/21 03/09/21 History Allergies Allergy/AdvReac Type Severity Reaction Status Date / Time No Known Allergies Allergy Verified 03/09/21 12:51 Physical Exam Vitals: Vital Signs Temp Pulse Pulse Resp BP BP Pulse Ox 03/10/21 05:00 98 F 108 H 16 102/78 95 03/09/21 19:41 98.4 F 107 H 16 131/85 97 03/09/21 18:26 98.4 F 104 H 124/82 100 03/09/21 17:09 102 H 18 136/94 96 03/09/21 15:58 99 18 133/89 98 03/09/21 15:21 102 H 18 110/75 98 03/09/21 14:03 102 H 18 131/90 96 03/09/21 12:30 115 H 23 124/88 99 03/09/21 11:50 97.5 F L 131 H 18 127/84 100 Intake and Output 03/09/21 03/10/21 03/10/21 22:59 06:59 14:59 Intake Total 100 Balance 100 Intake: Intake, IV Titration 100 Amount Sodium Chloride 0.9% 1, 100 000 ml @ 100 mls/hr IV . Q10H7M ONE with Mvi, Adult No.4 with Vit K 10 ml with Thiamine 100 mg with Folic Acid 1 mg Rx#: [id number] Other: Voiding Method Toilet # Voids 3 Weight 83.007 kg General appearance: The patient is alert, oriented, appears in no acute distress. HET: Head is normocephalic and atraumatic. Conjunctiva pink. Sclera anicteric. Neck: Supple without lymphadenopathy. Trachea midline. Heart: S1 S2. Regular rate and rhythm. Lungs: Clear to auscultation. Abdomen: Soft, diffuse tenderness, greatest in the epigastric region, distended with bowel sounds. No guarding or rigidity. Skin: No rashes. No jaundice. Extremities: Normal skin color and turgor. No pedal edema. Neurological: No focal deficits. Alert and oriented 3.. Results CBC & Chem 7: 03/10/21 05:26 03/10/21 05:26 Labs: Abnormal Lab Results - Last 24 Hours (Table) 03/09/21 03/09/21 03/09/21 Range/Units 12:33 12:33 12:33 RBC 3.32 L (4.30-5.90) m/uL Hgb 9.4 L (13.0-17.5) gm/dL Hct 27.3 L (39.0-53.0) % Plt Count 657 H (150-450) k/uL BUN 21 H (9-20) mg/dL Glucose 111 H (74-99) mg/dL Alkaline Phosphatase 158 H (38-126) U/L Creatine Kinase 28 L (55-170) U/L Albumin 3.2 L (3.5-5.0) g/dL Amylase 1270 H* (30-110) U/L Lipase 4264 H (23-300) U/L Urine Protein 1+ H (Negative) Urine Ketones Trace H (Negative) Amorphous Sediment Rare H (None) /hpf Hyaline Casts 31 H (0-2) /lpf Urine Mucus Many H (None) /hpf 03/10/21 Range/Units 05:26 RBC 2.82 L (4.30-5.90) m/uL Hgb 7.8 L D (13.0-17.5) gm/dL Hct 23.5 L (39.0-53.0) % Plt Count 506 H (150-450) k/uL BUN (9-20) mg/dL Glucose (74-99) mg/dL Alkaline Phosphatase (38-126) U/L Creatine Kinase (55-170) U/L Albumin (3.5-5.0) g/dL Amylase (30-110) U/L Lipase (23-300) U/L Urine Protein (Negative) Urine Ketones (Negative) Amorphous Sediment (None) /hpf Hyaline Casts (0-2) /lpf Urine Mucus (None) /hpf Assessment and Plan (1) Acute pancreatitis Narrative/Plan: [id number] male who presented to the emergency department with abdominal pain worsening over the last 2-3 days duration, along with abdominal distention. The patient states he's had abdominal pain for the last 2 months duration. He has a history of pancreatitis, first diagnosed in August 2020. He states he was hospitalized 3 times while in [place], he states he was in [place] and drinking heavily up to 8-10 beers along with mixed drinks a day. He states he hasn't had any alcohol in the last 2 months duration. He does state he was hospitalized and had a paracentesis 1-1/2-2 weeks ago while in [place]. He denies any history of liver cirrhosis. He is not on any diuretics, he was started on lactulose after his last admission. His admission labs showed elevation in amylase and lipase consistent with acute pancreatitis. Repeat labs show pancreatic enzymes are trending down, LFTs are normal. Current Visit: Yes Status: Acute Code(s): K85.90 - ACUTE PANCREATITIS WITHOUT NECROSIS OR INFECTION, UNSP SNOMED Code(s): 209420212 (2) Ascites Narrative/Plan: Ascites likely secondary to alcoholic cirrhosis of the liver. Paracentesis ordered with fluid studies. Patient has long history of significant alcohol abuse. Patient will be started on Lasix 20 mg daily and Aldactone 25 mg daily Current Visit: Yes Status: Acute Code(s): R18.8 - OTHER ASCITES SNOMED Cod e(s): 461209292 (3) Alcohol abuse Current Visit: Yes Status: Acute Code(s): F10.10 - ALCOHOL ABUSE, UNCOMPLICATED SNOMED Code(s): 99858650 (4) Anemia Narrative/Plan: Patient had a drop in his hemoglobin from 9.4-7.9. No signs and symptoms of GI bleed. Patient does admit to daily use of ibuprofen. He's had no previous history of peptic ulcer disease or GI bleed. No previous EGD or colonoscopy. Patient agreeable to proceed with EGD for evaluation of anemia, possible etiologies could include peptic ulcer disease, AVM, gastritis, esophagitis, or other etiology. Current Visit: Yes Status: Acute Code(s): D64.9 - ANEMIA, UNSPECIFIED SNOMED Code(s): 543922934 Plan: 1. Nothing by mouth with ice chips 2. Nothing by mouth after midnight 3. Lasix 20 mg daily and Aldactone 25 mg daily ordered 4. Daily CBC, transfuse for hemoglobin less than 7 5. Anemia profile ordered 6. Protonix 40 mg twice a day 7. Antiemetics as needed 8. Avoid NSAIDs 9. Recommend Alcohol cessation and smoking cessation 10. Abdominal ultrasound ordered 11. Agree with paracentesis 12. We'll plan on EGD tomorrow, procedure discussed in detail with patient including risks and benefits. Patient is willing to proceed. Thank you for this consultation, we will continue to follow Dr. Pillai I agree with the dictator's note, documented as a scribe by Deepa Peña.
[2021-03-10 21:08] LABS: Appearance,BF Cloudy; Color,BF Brown; Nucleated Cells, Body Fluid 2333 /uL
[2021-03-10 21:09] LABS: RBC, Body Fluid 11625 /uL
[2021-03-10 21:11] LABS: Mononuclear WBC,Body Fluid 35 %; Polynuclear WBC,Body Fluid 63 %; Total Cells Counted,Body Fluid 100
--- NOTE | 2021-03-11 00:36 | P.PN ---
Subjective Progress Note Date: 03/10/21 Principal diagnosis: Acute pancreatitis likely alcoholic pancreatitis Recurrent ascites Patient is a 45-year-old male with a known history of hypertension, alcohol abuse and history of acute alcoholic pancreatitis, asthma, anxiety/depression currently everyday smoker presents to ER with complaints of abdominal distention and epigastric abdominal pain. Patient states that he is has not drink for the past 2 months but recently went to [place] where he has been drinking heavily. Patient came back to [place] to 4 days ago. He started having abdominal pain mainly in the epigastric region radiating to the left side of the abdomen associated with nausea and vomiting. patient is unable to take any oral intake and pain intensity at 9 out of 10 in severity. no complaints of chest pain or shortness breath. no fever no chills. patient had previous paracentesis about a month ago patient is supposed to follow-up with on of this month. Denies any leg swelling. No complaints of diffuse abdominal pain. Laboratory data showed WBC 10.0 hemoglobin 9.4 and platelets 657 Sodium 138 potassium 4.2 chloride 104 BUN 21 creatinine 0.73 Albumin 3.2 Amylase 1270 and lipase 4264 Urinalysis is negative for infection. KUB x-ray showed no dilated loops of small bowel to small bowel. No evidence of free air. Paucity of gas through the colon. EKG showed sinus tachycardia with heart rate 111 03/10/2021 Patient is currently resting in the bed comfortably. Abdominal pain is much improved. Lipase level is trending down. Currently nothing by mouth and is scheduled for ultrasound-guided paracentesis. Patient was started on Lasix and spironolactone as per GI recommendations. He denies any nausea or vomiting. Patient has been afebrile. No diarrhea. No cough or sputum production. No chest pain. Current medications reviewed.. Objective - Vital Signs Vital signs: Vital Signs Temp 98.4 F 03/10/21 12:10 Pulse 96 03/10/21 17:13 Resp 16 03/10/21 17:13 BP 132/78 03/10/21 17:13 Pulse Ox 100 03/10/21 17:13 Intake & Output 03/09/21 03/10/21 03/10/21 18:59 06:59 18:59 Intake Total 100 Balance 100 Weight 83.007 kg Intake: Intake, IV Titration 100 Amount Sodium Chloride 0.9% 1, 100 000 ml @ 100 mls/hr IV . Q10H7M ONE with Mvi, Adult No.4 with Vit K 10 ml with Thiamine 100 mg with Folic Acid 1 mg Rx#: [id number] Other: Voiding Method Toilet Toilet # Voids 3 - Exam PHYSICAL EXAMINATION: Patient is lying in the bed comfortably, no acute distress, awake alert and oriented.. HEENT: Normocephalic. Neck is supple. Pupils reactive. Nostrils clear. Oral cavity is moist. Ears reveal no drainage. Neck reveals no JVD, carotid bruits, or thyromegaly. CHEST EXAMINATION: Trachea is central. Symmetrical expansion. Lung goodwin clear to auscultation and percussion. CARDIAC: Normal S1, S2 with no gallops. No murmurs ABDOMEN: Abdominal is soft distended encephalitis no guarding or rigidity. Mild epigastric tenderness.. Extremities: reveal no edema. No clubbing or cyanosis Neurologically awake, alert, oriented x3 with well-coordinated movements. No focal deficits noted Skin: No rash or skin lesions. Psychiatric: Coperative. Nonsuicidal Musculoskeletal: No joint swelling or deformity. Normal range of motion. - Labs CBC & Chem 7: 03/10/21 05:26 03/10/21 05:26 Labs: Abnormal Lab Results - Last 24 Hours (Table) 03/10/21 03/10/21 Range/Units 05:26 05:26 RBC 2.82 L (4.30-5.90) m/uL Hgb 7.8 L D (13.0-17.5) gm/dL Hct 23.5 L (39.0-53.0) % Plt Count 506 H (150-450) k/uL Carbon Dioxide 21.5 L (21.6-31.8) mmol/L BUN/Creatinine Ratio 31.67 H (12.00-20.00) Ratio Calcium 8.2 L (8.7-10.3) mg/dL Total Protein 5.4 L (6.2-8.2) g/dL Albumin 3.00 L (3.80-4.90) g/dL Albumin/Globulin Ratio 1.25 L (1.60-3.17) g/dL Amylase 1080 H* (23-121) U/L Lipase 848 H (14-60) U/L Assessment and Plan Assessment: Acute pancreatitis likely alcoholic pancreatitis Recurrent ascites Severe alcohol abuse Chronic low back pain Bilateral lower extremity peripheral neuropathy. Alcohol-related Hypertension DVT and GI prophylaxis Asthma stable Anxiety/depression Currently everyday smoker Plan: Patient will be continued on IV hydration and nothing by mouth. Continue with pain management with Dilaudid. GI and DVT prophylaxis. Ultrasound-guided paracentesis today. No signs of infection at this time. Follow-up fluid analysis. Gastroenterology was consulted for evaluation. started on diuretics. Patient was counseled extensively for alcohol abstinence. Monitor for alcohol withdrawal symptoms. Prognosis guarded at this time.
[2021-03-11] MEDS: HYDROmorphone 1 MG/ML 1 ML SYRINGE IVP PRN ×7 (02:59→23:17)
[2021-03-11 03:51] LABS: Albumin, Fluid Source Peritoneal Fluid
[2021-03-11] MEDS: SODIUM CHLORIDE 0.9% 1,000 ML IV SCH ×4 (05:36→19:40)
[2021-03-11 05:51] LABS: Basophils % (A) 1 %; Eosinophils # (A) 0.4 k/uL (0-0.7); Eosinophils % (A) 6 %; HCT 25.5 % (39.0-53.0); HGB 7.9 gm/dL (13.0-17.5); Hypochromasia Moderate; Lymphocytes # (A) 0.9 k/uL (1.0-4.8); Lymphocytes % (A) 13 %; MCH 25.8 pg (25.0-35.0); MCV 83.1 fL (80.0-100.0); Mean Platelet Volume 6.7; Monocytes # (A) 0.5 k/uL (0-1.0); Monocytes % (A) 8 %; Neutrophils # (A) 4.5 k/uL (1.3-7.7); Neutrophils % (A) 69 %; Platelet Count 488 k/uL (150-450); RBC 3.07 m/uL (4.30-5.90); RDW 14.3 % (11.5-15.5); Reticulocyte % 2.9 % (0.5-2.0); WBC 6.4 k/uL (3.8-10.6)
[2021-03-11] MEDS: PANTOPRAZOLE 40 MG/10 ML VIAL IV SCH ×2 (07:51→19:39)
[2021-03-11] MEDS: HEPARIN SODIUM,PORCINE/PF 5,000 UNIT/0.5 ML SYRINGE SQ SCH ×2 (07:51→19:39)
[2021-03-11] MEDS: NICOTINE 14MG/24HR PATCH TRANSDERM SCH (07:51)
--- NOTE | 2021-03-11 08:11 | US ---
EXAMINATION TYPE: US abdomen complete DATE OF EXAM: 03/11/2021 COMPARISON: US 2019 CLINICAL HISTORY: pancreatitis. Exam done portable EXAM MEASUREMENTS: Liver Length: 16.1 cm Gallbladder Wall: 0.2 cm CBD: 0.3 cm Spleen: 11.5 cm Right Kidney: 11.4 x 5.0 x 4.7 cm Left Kidney: 11.3 x 5.6 x 5.6 cm Pancreas: obscured by overlying midline bowel gas Liver: wnl Gallbladder: wnl Evidence for sonographic Jacobs's sign: no CBD: visualized portions wnl, limited by overlying bowel gas Spleen: wnl Right Kidney: wnl Left Kidney: wnl Upper IVC: wnl Abd Aorta: proximal portion wnl, mid and distal obscured by overlying midline bowel gas 5.2 x 3.8 x 3.9cm cystic area with internal debris seen adjacent to spleen and left kidney Small amount of abdominal ascites The mid and distal aorta are obscured by overlying bowel gas. The pancreas is obscured by overlying b owel gas. There is a small amount of perihepatic ascites. The right lobe of the liver measures 16 cm. No discrete hepatic mass or intrahepatic biliary dilatation. No right renal calculi or hydronephrosis. No gallstones, sludge, or pericholecystic fluid. Gallbladde r wall measures 2.2 mm. Common duct measures 3.4 mm. No hydronephrosis or shadowing renal calculus of the left kidney. Adjacent to the spleen and left kidney there is a 5.2 cm cystic structure. A CT wit h oral and IV contrast would be helpful for further evaluation. IMPRESSION: 1. The study is limited due to overlying bowel gas. The pancreas is obscured, not visualized. The abd ominal aorta is obscured at the mid and distal portion. Abdominal aortic aneurysm is not excluded. 2. Small amount of perihepatic ascites. 3. No gallstones. 4. No renal calculi or hydronephrosis. 5. There is a cystic structure adjacent to the spleen and left kidney measuring 5.2 cm. This is indet erminate. A CT would be helpful for further evaluation. This may represent a pancreatic cyst or pseud ocyst as the patient has a history on prior CT dated 06/10/2020.
[2021-03-11 09:41] LABS: % Iron Saturation 4.29 (15.00-50.00); African American GFR (CKD) 151.7 (60.0-200.0); Anion Gap 9.4 mmol/L (4.00-12.00); Calcium 7.8 mg/dL (8.7-10.3); Carbon Dioxide 19.6 mmol/L (21.6-31.8); Non-African American GFR(CKD) 130.9 (60.0-200.0); Potassium 3.9 mmol/L (3.5-5.5)
--- NOTE | 2021-03-11 09:43 | US ---
EXAMINATION TYPE: US paracentesis abd w/image DATE OF EXAM: 03/10/2021 COMPARISON: NONE HISTORY: Ascites. PROCEDURE: Maximal barrier technique was utilized. The skin overlying a suitable pocket of fluid was localized with ultrasound and the overlying skin was prepped and draped. Ultrasound was utilized with sterile technique. Lidocaine was used for local anesthesia and a skin jayme made with a scalpel. Catheter was advanced under direct ultrasound guidance into a suitable pocket of fluid and approximately 6.9 liter s of serous fluid were removed. Catheter was withdrawn and hemostasis achieved. There is no immedia te complication; the patient is discharged in stable condition. IMPRESSION: STATUS POST ULTRASOUND GUIDED PARACENTESIS FOR PALLIATION OF ASCITES. THIS PROCEDURE WA S PERFORMED BY THE UNDERSIGNED.
[2021-03-11 10:22] LABS: Folate, Serum 8.9 ng/mL
[2021-03-11 10:28] LABS: Ferritin 2108.7 ng/mL (22.0-322.0)
[2021-03-11] MEDS ORDERED: LIDOCAINE 1% INJ 10MG/ML (20 ML MDV) ONE (12:33)
[2021-03-11] MEDS ORDERED: MIDAZOLAM 2 MG/2 ML VIAL ONE (12:33)
[2021-03-11] MEDS ORDERED: IV FLUID CONTINUATION 1,000 ML IV ONE (12:33)
[2021-03-11] MEDS ORDERED: PROPOFOL 10 MG/ML 20 ML VIAL IV ONE (12:33)
[2021-03-11] MEDS ORDERED: fentaNYL (PF) 50 MCG/ML 2 ML AMP ONE (12:33)
--- NOTE | 2021-03-11 12:44 | P.PCN ---
Date of Procedure: 03/11/21 Procedure(s) Performed: BRIEF HISTORY: Patient is a 45-year-old, pleasant, white male in the hospital with severe epigastric pain for the last 2 days' duration. Noted to have elevated lipase and amylase consistent with acute pancreatitis. Because of the persistent abdominal symptoms he scheduled for an upper endoscopy to evaluate further. PROCEDURE PERFORMED: Esophagogastroduodenoscopy with biopsy. PREOPERATIVE DIAGNOSIS: Persistent epigastric pain. IV sedation per anesthesia. PROCEDURE: After informed consent was obtained, the patient was brought into the endoscopy unit. IV sedation was administered by Anesthesia under continuous monitoring. Initially the Olympus GIF-140 video endoscope was inserted into the mouth. Esophagus intubated without any difficulty. It was gradually advanced into the stomach and duodenum and carefully examined. The bulb and the second part of the duodenum appeared normal. The scope at this time was withdrawn to the stomach, adequately insufflated with air, and upon careful examination, mucosa of the antrum had mild gastritis and biopsies were done from this area. No evidence of ulcerations. The body, cardia and the fundus appeared normal. The scope was then withdrawn into the esophagus. Small sliding type hiatal hernia noted. The GE junction was located at 39 cm from the incisors. The esophagus appeared normal. There were no erosions or ulcerations seen and the patient tolerated the procedure well. IMPRESSION: 1. Mild antral gastritis and small hiatal hernia. 2. No evidence of esophagitis or peptic ulcer disease. RECOMMENDATIONS: The findings of this examination were discussed with the patient . He was advised to follow with the biopsy results.. He'll continue with Protonix 40 mg daily as well as pain medications as needed.
[2021-03-11] MEDS: FUROSEMIDE 20 MG TAB PO SCH (13:03)
[2021-03-11] MEDS: SPIRONOLACTONE 25 MG TAB PO SCH (13:03)
[2021-03-11] MEDS: GABAPENTIN 100 MG CAP PO SCH (13:03)
[2021-03-11] MEDS: LACTULOSE 20 GM/30 ML CUP PO SCH (13:03)
--- NOTE | 2021-03-11 17:39 | XR ---
EXAMINATION TYPE: XR abdomen 1V DATE OF EXAM: 03/11/2021 COMPARISON: NONE HISTORY: Left upper quadrant pain TECHNIQUE: 2 views FINDINGS: There are intestinal fluid levels in the mid abdomen. There is blunting right costophrenic angle. There is increased density over the abdomen consistent with ascites. Heart size is normal. The re are no pathologic calcifications over the kidneys. IMPRESSION: There is evidence of intestinal ileus and abdominal ascites. No significant change compar ed to last exam. Right pleural effusion unchanged.
[2021-03-12] MEDS: SODIUM CHLORIDE 0.9% 1,000 ML IV SCH ×4 (02:48→22:31)
[2021-03-12] MEDS: HYDROmorphone 1 MG/ML 1 ML SYRINGE IVP PRN ×8 (03:24→22:09)
[2021-03-12] MEDS: GABAPENTIN 100 MG CAP PO SCH (08:01)
[2021-03-12] MEDS: PANTOPRAZOLE 40 MG/10 ML VIAL IV SCH ×2 (08:01→20:08)
[2021-03-12] MEDS: FUROSEMIDE 20 MG TAB PO SCH (08:01)
[2021-03-12] MEDS: NICOTINE 14MG/24HR PATCH TRANSDERM SCH (08:01)
[2021-03-12] MEDS: SPIRONOLACTONE 25 MG TAB PO SCH (08:02)
[2021-03-12] MEDS: HEPARIN SODIUM,PORCINE/PF 5,000 UNIT/0.5 ML SYRINGE SQ SCH ×2 (08:02→20:08)
[2021-03-12] MEDS: LACTULOSE 20 GM/30 ML CUP PO SCH (08:02)
[2021-03-12] MEDS ORDERED: SIMETHICONE 40 MG/0.6 ML DROPS 2,000 MG/30 ML BOTTLE PO SCH (09:00)
[2021-03-12] MEDS: SIMETHICONE 40 MG/0.6 ML DROPS 2,000 MG/30 ML BOTTLE PO PRN (11:14)
--- NOTE | 2021-03-12 13:40 | PN ---
PROGRESS NOTE PROGRESS NOTE: Patient is a 45-year-old white male with history of heavy alcohol abuse, chronic pancreatitis, admitted to the hospital with severe epigastric and left upper quadrant abdominal pain and noted to have elevated amylase and lipase. He underwent an upper endoscopy yesterday because of persistent abdominal pain, which revealed mild gastritis but no other no evidence of peptic ulcer disease. This morning he continues to complain of severe pain, requesting for more pain medications. He reports no nausea, vomiting. Currently on a full liquid diet. PHYSICAL EXAMINATION: He appears comfortable, in no apparent distress. Vital signs: Stable. Blood pressure is 131/77, pulse rate 106, temperature 98. HEENT examination unremarkable, sclerae anicteric. Oral cavity no lesions. Neck: No JVD or lymph node enlargement. Chest was clear to auscultation. Heart: Regular rate and rhythm. Abdomen: Soft with tenderness in the left upper quadrant area. Bowel sounds are positive, no organomegaly. Extremities: No pedal edema. Skin: No rashes. Neuro: He is alert and oriented x3. No focal deficits. LABS: No labs available from today. Yesterday, WBC 6.4, hemoglobin 10.9, platelets 486. Lipase yesterday was 848 and amylase is 1080. IMPRESSION: 1. Acute pancreatitis with severe epigastric pain, status post EGD yesterday, did not show any evidence of peptic ulcer disease. 2. History of liver cirrhosis secondary to alcoholic liver disease. 3. Ascites, status post large-volume paracentesis 3 days ago, presently on diuretics. 4. Heavy alcohol abuse, quit drinking about 2 months ago. 5. Anemia of chronic disease. RECOMMENDATIONS: 1. Continue with Protonix 40 mg twice daily. 2. Continue with a clear liquid diet and advance as tolerated. 3. Pain medications as needed. 4. Continue with Lasix 20 mg daily and Aldactone 25 mg daily. 5. Low-salt diet. 6. Monitor labs closely. 7. Will follow with you closely. Thank you for this consultation. MMODL / IJN: [id number] /
[2021-03-12] MEDS: IOPAMIDOL CONTRAST (ORAL USE) VIAL PO PRN ×2 (21:13→22:08)
--- NOTE | 2021-03-13 00:58 | CT ---
EXAMINATION TYPE: CT abdomen pelvis w con DATE OF EXAM: 03/12/2021 COMPARISON: 06/10/2020 HISTORY: abdominal distention CT DLP: 768.70 mGycm Automated exposure control for dose reduction was used. CONTRAST: Performed with IV Contrast, patient injected with 100 mL of Isovue 300. Images from the diaphragm to the floor the pelvis with oral and IV contrast. There are bilateral pleu ral effusions and larger on the right side. There is no pericardial effusion. There is moderate abdom inal ascites fluid. Liver and spleen appear intact. The bile ducts are not dilated. Gallbladder appea rs normal. There is a 4 cm thin wall low-density cystic mass in the tail of the pancreas. There are some distended small bowel loops with oral contrast. These measure up to 3 cm. There is no adrenal ma ss. Kidneys show satisfactory contrast opacification. There is no hydronephrosis. Delayed images show normal renal excretion. There is no evidence of free air. There is no retroperitoneal adenopathy. The bladder is almost empty . The lumbar spine is intact. There is normal alignment of the vertebra. There is no compression frac ture. Bony pelvis is intact. The hip joints are intact. There is large bowel fluid level in the cecum . There is distended gas-filled transverse colon that measures 6.3 cm in diameter. IMPRESSION: There are bilateral pleural effusions with some basilar atelectasis that is more on the right side. There is moderately large amount of abdominal ascites fluid. Pleural fluid and ascites are new compar ed to old exam. There is a cystic mass in the tail of the pancreas which is increased in size compared to old exam. T his measures 3 cm on old exam. There is 12 mm low-density focus in the posterior body of the pancreas not significantly different than old exam. Pancreatic abnormalities could relate to pancreatitis and pseudocyst formation. Tumor not entirely included. There is distended large and small bowel loops consistent with ileus. I do not suspect a mechanical b owel obstruction. There is gas and fecal material down to the rectum.
[2021-03-13] MEDS: HYDROmorphone 1 MG/ML 1 ML SYRINGE IVP PRN ×11 (02:00→22:20)
[2021-03-13] MEDS: SIMETHICONE 40 MG/0.6 ML DROPS 2,000 MG/30 ML BOTTLE PO PRN (04:13)
[2021-03-13] MEDS: SODIUM CHLORIDE 0.9% 1,000 ML IV SCH ×3 (05:17→22:20)
[2021-03-13] MEDS ORDERED: SIMETHICONE 40 MG/0.6 ML DROPS 2,000 MG/30 ML BOTTLE PO PRN (08:24)
[2021-03-13] MEDS: GABAPENTIN 100 MG CAP PO SCH (08:34)
[2021-03-13] MEDS: PANTOPRAZOLE 40 MG/10 ML VIAL IV SCH (08:34)
[2021-03-13] MEDS: HEPARIN SODIUM,PORCINE/PF 5,000 UNIT/0.5 ML SYRINGE SQ SCH ×2 (08:34→20:10)
[2021-03-13] MEDS: FUROSEMIDE 20 MG TAB PO SCH (08:34)
[2021-03-13] MEDS: SPIRONOLACTONE 25 MG TAB PO SCH ×2 (08:34→09:59)
[2021-03-13] MEDS: LACTULOSE 20 GM/30 ML CUP PO SCH (08:35)
[2021-03-13] MEDS: NICOTINE 14MG/24HR PATCH TRANSDERM SCH (08:35)
--- NOTE | 2021-03-13 09:23 | PN ---
PROGRESS NOTE DATE OF SERVICE: March 13, 2021 Patient is a 45-year-old pleasant white male admitted to the hospital with ascites and alcohol related pancreatitis with severe epigastric pain. He is feeling somewhat better today, still has persistent left upper quadrant abdominal pain and occasionally in the epigastric area. He was requiring pain medications every 2 hours. He did have a CT of the abdomen and pelvis done last night that showed bilateral pleural effusions, moderate with large amount of abdominal ascites, cystic mass in the tail of the pancreas which is 4 cm in size and slightly increased compared to the last exam distended large and small bowel loops consistent with ileus. On a clear liquid diet, tolerating well. PHYSICAL EXAMINATION: Appears comfortable, no apparent distress. Vital signs are stable. Blood pressure 121/77, pulse 97, temperature 98.4. HEENT examination unremarkable. Conjunctivae pink. Sclerae anicteric. Oral cavity no lesions. Neck no JVD or lymph node enlargement. Chest was clear to auscultation. Heart: Regular rate and rhythm. Abdomen: Soft, slightly distended. Tenderness in the left upper quadrant area. Bowel sounds are positive. Extremities: No pedal edema. Neuro: He is alert and oriented x3. No focal deficits. LABS: No labs are available from today. IMPRESSION: 1. Acute pancreatitis complicated with pseudocyst and mild ileus. CT scan from last night showed a 4 cm cystic lesion in the tail of the pancreas. 2. Recurrent ascites related to underlying liver cirrhosis from alcohol abuse. 3. History of heavy alcohol abuse in the past, quit drinking about 2 months ago. 4. Anemia. RECOMMENDATIONS: 1. Continue with pain medications as needed. 2. Advance to full liquid diet. 3. Increase Lasix to 40 mg daily and Aldactone 50 mg daily. 4. Continue symptomatic and supportive care. 5. Abstinence from alcohol. 6. Will follow with you closely. Thank you for this consultation. MMODL / IJN: [id number] /
--- NOTE | 2021-03-13 09:42 | P.GSCN ---
History of Present Illness Consult date: 03/13/21 Reason for Consult: Abdominal pain History of present illness: We're consulted to see the patient for upper abdominal pain. Patient was admitt ed to the hospital with epigastric pain and abdominal swelling. Patient with history of alcohol use and cirrhosis. Patient underwent paracentesis recently but shortly after the paracentesis he says his abdomen became re-distended. Patient had a CAT scan showing ascites, pancreatitis, and a 4 cm cyst at the tail of the pancreas. Some dilated loops of bowel consistent with ileus noted. Patient is tolerating clear liquids. 2 bowel movement yesterday. He is having flatus. Review of Systems The patient denies any acute changes in vision or hearing, no dysphagia or odynophagia, no chest pain or shortness of breath, no dysuria or hematuria, no headache, no runny nose, no rectal bleeding or melena, no unexplained weight loss Past Medical History Past Medical History: Asthma, Hypertension, Neurologic Disorder, Renal Disease Additional Past Medical History / Comment(s): Pt recently admitted to [facility] on 07/25/20 with acute alcohol pancreatitis/alcohol abuse/leukocytosis. Other hx: ETOH with drawal with tremors/seizure, bronchitis, neuropathy R leg/R foot pain/limps, chronic low back pain/5 disc ruptured, 2017 pt had dialtysis for 3 months but states kidneys are working fine now, insomnia. History of Any Multi-Drug Resistant Organisms: None Reported Past Surgical History: No Surgical Hx Reported Additional Past Surgical History / Comment(s): Rhinoplasty, sinus scrapped, L lower eyelid laceration/repair, R 2nd toe metatarsopharangeal arthroplasty. Past Anesthesia/Blood Transfusion Reactions: No Reported Reaction Past Psychological History: Anxiety, Depression Smoking Status: Current every day smoker Past Alcohol Use History: None Reported Past Drug Use History: None Reported - Past Family History Mother Family Medical History: No Reported History Additional Family Medical History / Comment(s): Mother is healthy. Father Family Medical History: No Reported History Additional Family Medical History / Comment(s): Father is healthy Medications and Allergies Home Medications Medication Instructions Recorded Confirmed Type Gabapentin [Neurontin] 100 mg PO DAILY 03/09/21 03/09/21 History Lactulose 10 gm PO DAILY 03/09/21 03/09/21 History Allergies Allergy/AdvReac Type Severity Reaction Status Date / Time No Known Allergies Allergy Verified 03/09/21 12:51 Surgical - Exam Vital Signs Temp Pulse Resp BP Pulse Ox 97.5 F L 131 H 18 127/84 100 03/09/21 11:50 03/09/21 11:50 03/09/21 11:50 03/09/21 11:50 03/09/21 11:50 Physical exam: General: Well-developed, well-nourished HEENT: Normocephalic, sclerae nonicteric Abdomen: Distended, fluid present, mild epigastric tenderness Extremities: No edema Neuro: Alert and oriented Results - Labs 03/11/21 05:05 03/11/21 05:05 Microbiology - Last 24 Hours (Table) 03/10/21 16:05 Anaerobic Culture - Preliminary Ascites Fluid 03/10/21 16:05 Gram Stain - Preliminary Ascites Fluid Body Fluid Culture - Preliminary Assessment and Plan (1) Abdominal pain Narrative/Plan: 45-year-old male with abdominal pain and ileus secondary to pancreatitis. Transverse colon measuring 7 cm at this time. He is passing flatus and bowel movements. Gradually advance diet as tolerated. Will follow. Current Visit: Yes Status: Acute Code(s): R10.9 - UNSPECIFIED ABDOMINAL PAIN SNOMED Code(s): 20416834
[2021-03-13] MEDS: FUROSEMIDE 40 MG TAB PO SCH (09:59)
--- NOTE | 2021-03-13 19:46 | P.PN ---
Subjective Progress Note Date: 03/11/21 Principal diagnosis: Acute alcoholic pancreatitis Recurrent ascites 45-year-old male with a known history of hypertension, alcohol abuse and history of acute alcoholic pancreatitis, asthma, anxiety/depression currently everyday smoker presents to ER with complaints of abdominal distention and epigastric abdominal pain. Patient states that he is has not drink for the past 2 months but recently went to [place] where he has been drinking heavily. Patient came back to [place] to 4 days ago. He started having abdominal pain mainly in the epigastric region radiating to the left side of the abdomen associated with nausea and vomiting. patient is unable to take any oral intake and pain intensity at 9 out of 10 in severity. no complaints of chest pain or shortness breath. no fever no chills. patient had previous paracentesis about a month ago patient is supposed to follow-up with on of this month. Denies any leg swelling. No complaints of diffuse abdominal pain. Objective - Vital Signs Vital signs: Vital Signs Temp 98.8 F 03/11/21 05:00 Pulse 104 H 03/11/21 05:00 Resp 16 03/11/21 05:00 BP 119/74 03/11/21 05:00 Pulse Ox 97 03/11/21 05:00 Intake & Output 03/10/21 03/11/21 03/11/21 18:59 06:59 18:59 Intake Total 1999 50 Balance 1999 50 Intake: IV 50 Intake, IV Titration 1800 Amount Sodium Chloride 0.9% 1, 1800 000 ml @ 150 mls/hr IV . Q6H40M [facility] Rx#:[id number] Oral 200 Other: Voiding Method Toilet Toilet Toilet # Voids 3 4 - Exam Patient is lying in the bed comfortably, no acute distress, awake alert and oriented.. HEENT: Normocephalic. Neck is supple. Pupils reactive. Nostrils clear. Oral cavity is moist. Ears reveal no drainage. Neck reveals no JVD, carotid bruits, or thyromegaly. CHEST EXAMINATION: Trachea is central. Symmetrical expansion. Lung goodwin clear to auscultation and percussion. CARDIAC: Normal S1, S2 with no gallops. No murmurs ABDOMEN: Abdominal is soft distended encephalitis no guarding or rigidity. Mild epigastric tenderness.. Extremities: reveal no edema. No clubbing or cyanosis Neurologically awake, alert, oriented x3 with well-coordinated movements. No focal deficits noted Skin: No rash or skin lesions. Psychiatric: Coperative. Nonsuicidal Musculoskeletal: No joint swelling or deformity. Normal range of motion. - Labs CBC & Chem 7: 03/11/21 05:05 03/11/21 05:05 Labs: Abnormal Lab Results - Last 24 Hours (Table) 03/11/21 03/11/21 Range/Units 05:05 05:05 RBC 3.07 L (4.30-5.90) m/uL Hgb 7.9 L (13.0-17.5) gm/dL Hct 25.5 L (39.0-53.0) % Plt Count 488 H (150-450) k/uL Lymphocytes # 0.9 L (1.0-4.8) k/uL Retic Count 2.9 H (0.5-2.0) % Sodium 134 L (135-145) mmol/L Carbon Dioxide 19.6 L (21.6-31.8) mmol/L Creatinine 0.5 L (0.6-1.5) mg/dL BUN/Creatinine Ratio 24.00 H (12.00-20.00) Ratio Glucose 68 L (70-110) mg/dL Calcium 7.8 L (8.7-10.3) mg/dL Iron 10 L (65-175) ug/dL % Saturation 4.29 L (15.00-50.00) Ferritin 2108.7 H (22.0-322.0) ng/mL Microbiology - Last 24 Hours (Table) 03/10/21 16:05 Gram Stain - Preliminary Ascites Fluid Body Fluid Culture - Preliminary 03/10/21 16:05 Anaerobic Culture - Preliminary Ascites Fluid Assessment and Plan Assessment: Acute pancreatitis likely alcoholic pancreatitis Recurrent ascites Severe alcohol abuse Chronic low back pain Bilateral lower extremity peripheral neuropathy. Alcohol-related Hypertension DVT and GI prophylaxis Asthma stable Anxiety/depression Currently everyday smoker Plan: Patient will be continued on IV hydration and nothing by mouth. Continue with pain management with Dilaudid. GI and DVT prophylaxis. Ultrasound-guided paracentesis today. No signs of infection at this time. Follow-up fluid analysis. Gastroenterology was consulted for evaluation. started on diuretics. Patient was counseled extensively for alcohol abstinence. Monitor for alcohol withdrawal symptoms. Prognosis guarded at this time.
--- NOTE | 2021-03-13 19:50 | P.PN ---
Subjective Progress Note Date: 03/13/21 Principal diagnosis: Acute alcoholic pancreatitis Recurrent ascites 45-year-old male with a known history of hypertension, alcohol abuse and history of acute alcoholic pancreatitis, asthma, anxiety/depression currently everyday smoker presents to ER with complaints of abdominal distention and epigastric abdominal pain. Patient states that he is has not drink for the past 2 months but recently went to [place] where he has been drinking heavily. Patient came back to [place] to 4 days ago. He started having abdominal pain mainly in the epigastric region radiating to the left side of the abdomen associated with nausea and vomiting. patient is unable to take any oral intake and pain intensity at 9 out of 10 in severity. no complaints of chest pain or shortness breath. no fever no chills. patient had previous paracentesis about a month ago patient is supposed to follow-up with on of this month. Denies any leg swelling. No complaints of diffuse abdominal pain. 03/12/2021 Patient is seen and evaluated resting in bed; complains of severe abdominal pain; requiring IV pain medication every 3-4 hours Vital signs are reviewed and reveal temperature of 98, pulse 106, respirations 16 and blood pressure 131/77 with SpO2 of 97% on room air On physical exam abdomen is distended with decreased bowel sounds; some guarding and lower quadrants; intestinal ileus and abdominal ascites; we will keep patient on clear liquid diet and IV fluids; patient encouraged to increase ambulation Objective - Vital Signs Vital signs: Vital Signs Temp 97.8 F 03/13/21 11:40 Pulse 94 03/13/21 11:40 Resp 16 03/13/21 11:40 BP 118/79 03/13/21 11:40 Pulse Ox 95 03/13/21 11:40 Intake & Output 03/12/21 03/13/21 03/13/21 18:59 06:59 18:59 Intake Total 1650 1800 Balance 1650 1800 Intake: Intake, IV Titration 1650 1800 Amount Sodium Chloride 0.9% 1649 1800 000 ml @ 150 mls/hr IV . Q6H40M [facility] Rx#:[id number] Other: # Voids 3 # Bowel Movements 2 - Exam Patient is lying in the bed comfortably, no acute distress, awake alert and o riented.. HEENT: Normocephalic. Neck is supple. Pupils reactive. Nostrils clear. Oral cavity is moist. Ears reveal no drainage. Neck reveals no JVD, carotid bruits, or thyromegaly. CHEST EXAMINATION: Trachea is central. Symmetrical expansion. Lung goodwin clear to auscultation and percussion. CARDIAC: Normal S1, S2 with no gallops. No murmurs ABDOMEN: Abdominal is soft distended encephalitis no guarding or rigidity. Mild epigastric tenderness.. Extremities: reveal no edema. No clubbing or cyanosis Neurologically awake, alert, oriented x3 with well-coordinated movements. No focal deficits noted Skin: No rash or skin lesions. Psychiatric: Coperative. Nonsuicidal Musculoskeletal: No joint swelling or deformity. Normal range of motion. - Labs CBC & Chem 7: 03/11/21 05:05 03/11/21 05:05 Labs: Microbiology - Last 24 Hours (Table) 03/10/21 16:05 Anaerobic Culture - Preliminary Ascites Fluid 03/10/21 16:05 Gram Stain - Preliminary Ascites Fluid Body Fluid Culture - Preliminary Assessment and Plan Assessment: Acute pancreatitis likely alcoholic pancreatitis Recurrent ascites Severe alcohol abuse Chronic low back pain Bilateral lower extremity peripheral neuropathy. Alcohol-related Hypertension DVT and GI prophylaxis Asthma stable Anxiety/depression Currently everyday smoker Plan: Patient will be continued on IV hydration and nothing by mouth. Continue with pain management with Dilaudid. GI and DVT prophylaxis. Ultrasound-guided paracentesis today. No signs of infection at this time. Follow-up fluid analysis. Gastroenterology was consulted for evaluation. started on diuretics. Patient was counseled extensively for alcohol abstinence. Monitor for alcohol withdrawal symptoms. Prognosis guarded at this time.
--- NOTE | 2021-03-13 19:52 | P.PN ---
Subjective Progress Note Date: 03/12/21 Principal diagnosis: Acute alcoholic pancreatitis Recurrent ascites 45-year-old male with a known history of hypertension, alcohol abuse and history of acute alcoholic pancreatitis, asthma, anxiety/depression currently everyday smoker presents to ER with complaints of abdominal distention and epigastric abdominal pain. Patient states that he is has not drink for the past 2 months but recently went to [place] where he has been drinking heavily. Patient came back to [place] to 4 days ago. He started having abdominal pain mainly in the epigastric region radiating to the left side of the abdomen associated with nausea and vomiting. patient is unable to take any oral intake and pain intensity at 9 out of 10 in severity. no complaints of chest pain or shortness breath. no fever no chills. patient had previous paracentesis about a month ago patient is supposed to follow-up with on of this month. Denies any leg swelling. No complaints of diffuse abdominal pain. 03/12/2021 Patient is seen and evaluated resting in bed; complains of severe abdominal pain; requiring IV pain medication every 3-4 hours Vital signs are reviewed and reveal temperature of 98, pulse 106, respirations 16 and blood pressure 131/77 with SpO2 of 97% on room air On physical exam abdomen is distended with decreased bowel sounds; some guarding and lower quadrants; intestinal ileus and abdominal ascites; we will keep patient on clear liquid diet and IV fluids; patient encouraged to increase ambulation Objective - Vital Signs Vital signs: Vital Signs Temp 98 F 03/12/21 11:54 Pulse 106 H 03/12/21 11:54 Resp 16 03/12/21 11:54 BP 131/77 03/12/21 11:54 Pulse Ox 97 03/12/21 11:54 Intake & Output 03/11/21 03/12/21 03/12/21 18:59 06:59 18:59 Intake Total 50 Balance 50 Intake: IV 50 Other: Voiding Method Toilet Toilet # Voids 2 # Bowel Movements 1 - Exam Patient is lying in the bed comfortably, no acute distress, awake alert and oriented.. HEENT: Normocephalic. Neck is supple. Pupils reactive. Nostrils clear. Oral cavity is moist. Ears reveal no drainage. Neck reveals no JVD, carotid bruits, or thyromegaly. CHEST EXAMINATION: Trachea is central. Symmetrical expansion. Lung goodwin clear to auscultation and percussion. CARDIAC: Normal S1, S2 with no gallops. No murmurs ABDOMEN: Abdominal is soft distended encephalitis no guarding or rigidity. Mild epigastric tenderness.. Extremities: reveal no edema. No clubbing or cyanosis Neurologically awake, alert, oriented x3 with well-coordinated movements. No focal deficits noted Skin: No rash or skin lesions. Psychiatric: Coperative. Nonsuicidal Musculoskeletal: No joint swelling or deformity. Normal range of motion. - Labs CBC & Chem 7: 03/11/21 05:05 03/11/21 05:05 Labs: Microbiology - Last 24 Hours (Table) 03/10/21 16:05 Gram Stain - Preliminary Ascites Fluid Body Fluid Culture - Preliminary Assessment and Plan Assessment: Acute pancreatitis likely alcoholic pancreatitis Recurrent ascites Severe alcohol abuse Chronic low back pain Bilateral lower extremity peripheral neuropathy. Alcohol-related Hypertension DVT and GI prophylaxis Asthma stable Anxiety/depression Currently everyday smoker Plan: Patient will be continued on IV hydration and nothing by mouth. Continue with pain management with Dilaudid. GI and DVT prophylaxis. Ultrasound-guided paracentesis today. No signs of infection at this time. Follow-up fluid analysis. Gastroenterology was consulted for evaluation. started on diuretics. Patient was counseled extensively for alcohol abstinence. Monitor for alcohol withdrawal symptoms. Prognosis guarded at this time.
[2021-03-13] MEDS: PANTOPRAZOLE 40 MG TABLET PO SCH (20:11)
[2021-03-14] MEDS: HYDROmorphone 1 MG/ML 1 ML SYRINGE IVP PRN ×7 (00:12→23:09)
[2021-03-14 07:08] LABS: Basophils # (A) 0.1 k/uL (0-0.2); Basophils % (A) 1 %; Eosinophils # (A) 0.7 k/uL (0-0.7); Eosinophils % (A) 11 %; HCT 23.5 % (39.0-53.0); HGB 7.7 gm/dL (13.0-17.5); Hypochromasia Moderate; Lymphocytes % (A) 15 %; MCH 27.3 pg (25.0-35.0); MCHC 32.9 g/dL (31.0-37.0); MCV 82.8 fL (80.0-100.0); Monocytes # (A) 0.5 k/uL (0-1.0); Monocytes % (A) 8 %; Neutrophils % (A) 63 %; Platelet Count 452 k/uL (150-450); Poikilocytosis Slight; RBC 2.84 m/uL (4.30-5.90); RDW 14.7 % (11.5-15.5); WBC 6.4 k/uL (3.8-10.6)
[2021-03-14 07:34] LABS: ALT 7 U/L (4-49); AST 14 U/L (17-59); African American GFR (CKD) >90 (>60 ml/min/1.73 sqM); Albumin 2.2 g/dL (3.5-5.0); Albumin/Globulin Ratio 0.9; Alkaline Phosphatase 93 U/L (38-126); Anion Gap 5 mmol/L; Bilirubin,Unconjugated 0.1 mg/dL (0.0-1.1); Blood Urea Nitrogen 6 mg/dL (9-20); Calcium 8.4 mg/dL (8.4-10.2); Carbon Dioxide 26 mmol/L (22-30); Chloride 107 mmol/L (98-107); Globulin 2.5 g/dL; Glucose 94 mg/dL (74-99); Non-African American GFR(CKD) >90 (>60 ml/min/1.73 sqM); Potassium 3.3 mmol/L (3.5-5.1); Sodium 138 mmol/L (137-145); Total Bilirubin <0.1 mg/dL (0.2-1.3); Total Protein 4.7 g/dL (6.3-8.2)
[2021-03-14 08:10] LABS: Lipase 1983 U/L (23-300)
[2021-03-14] MEDS: PANTOPRAZOLE 40 MG TABLET PO SCH ×2 (08:22→19:14)
[2021-03-14] MEDS: NICOTINE 14MG/24HR PATCH TRANSDERM SCH (08:22)
[2021-03-14] MEDS: SPIRONOLACTONE 25 MG TAB PO SCH (08:22)
[2021-03-14] MEDS: GABAPENTIN 100 MG CAP PO SCH (08:22)
[2021-03-14] MEDS: LACTULOSE 20 GM/30 ML CUP PO SCH (08:23)
[2021-03-14] MEDS: HEPARIN SODIUM,PORCINE/PF 5,000 UNIT/0.5 ML SYRINGE SQ SCH ×2 (08:23→19:12)
[2021-03-14] MEDS: FUROSEMIDE 40 MG TAB PO SCH (08:23)
--- NOTE | 2021-03-14 14:28 | P.PN ---
Subjective Progress Note Date: 03/14/21 Principal diagnosis: Pancreatitis Patient says he had increased pain last night. Slightly better this morning. He did have a bowel movement yesterday. Some nausea. Diminished appetite. No vomiting. He is afebrile. Labs show that his lipase increased further today. Objective - Vital Signs Vital signs: Vital Signs Temp 98.0 F 03/14/21 11:20 Pulse 94 03/14/21 11:20 Resp 16 03/14/21 11:20 BP 127/79 03/14/21 11:20 Pulse Ox 95 03/14/21 11:20 Intake & Output 03/13/21 03/14/21 03/14/21 18:59 06:59 18:59 Intake Total 1640 Balance 1640 Intake: Intake, IV Titration 800 Amount Sodium Chloride 0.9% 1, 800 000 ml @ 150 mls/hr IV . Q6H40M [facility] Rx#:[id number] Oral 840 Other: Voiding Method Toilet Toilet # Voids 2 1 - Exam Abdomen: Soft, distended, ascites present, mild epigastric tenderness - Labs CBC & Chem 7: 03/14/21 06:35 03/14/21 06:35 Labs: Abnormal Lab Results - Last 24 Hours (Table) 03/14/21 03/14/21 Range/Units 06:35 06:35 RBC 2.84 L (4.30-5.90) m/uL Hgb 7.7 L (13.0-17.5) gm/dL Hct 23.5 L (39.0-53.0) % Plt Count 452 H (150-450) k/uL Potassium 3.3 L (3.5-5.1) mmol/L BUN 6 L (9-20) mg/dL Creatinine 0.55 L (0.66-1.25) mg/dL Total Bilirubin <0.1 L (0.2-1.3) mg/dL AST 14 L (17-59) U/L Total Protein 4.7 L (6.3-8.2) g/dL Albumin 2.2 L (3.5-5.0) g/dL Lipase 1983 H (23-300) U/L Microbiology - Last 24 Hours (Table) 03/10/21 16:05 Gram Stain - Preliminary Ascites Fluid Body Fluid Culture - Preliminary Assessment and Plan (1) Abdominal pain Narrative/Plan: Continue supportive care. Monitor complaints of pain. Repeat labs tomorrow. Continue full liquid diet for now. Current Visit: Yes Status: Acute Code(s): R10.9 - UNSPECIFIED ABDOMINAL PAIN SNOMED Code(s): 93724301
[2021-03-14] MEDS ORDERED: POTASSIUM CHLORIDE ER 20 MEQ TAB.ER PO STA (14:48)
--- NOTE | 2021-03-14 14:49 | P.PN ---
Subjective Progress Note Date: 03/14/21 45-year-old male with a known history of hypertension, alcohol abuse and history of acute alcoholic pancreatitis, asthma, anxiety/depression currently everyday smoker presents to ER with complaints of abdominal distention and epigastric abdominal pain. Patient states that he is has not drink for the past 2 months but recently went to [place] where he has been drinking heavily. Patient came back to [place] to 4 days ago. He started having abdominal pain mainly in the epigastric region radiating to the left side of the abdomen associated with nausea and vomiting. patient is unable to take any oral intake and pain intensity at 9 out of 10 in severity. no complaints of chest pain or shortness breath. no fever no chills. patient had previous paracentesis about a month ago patient is supposed to follow-up with on of this month. Denies any leg swelling. No complaints of diffuse abdominal pain. 03/12/2021 Patient is seen and evaluated resting in bed; complains of severe abdominal pain; requiring IV pain medication every 3-4 hours Vital signs are reviewed and reveal temperature of 98, pulse 106, respirations 16 and blood pressure 131/77 with SpO2 of 97% on room air On physical exam abdomen is distended with decreased bowel sounds; some guarding and lower quadrants; intestinal ileus and abdominal ascites; we will keep patient on clear liquid diet and IV fluids; patient encouraged to increase ambulation 03/13/2021 Patient is seen and evaluated resting in bed; has been eating Dilaudid every 2 hours; report some improvement in pain CT of abdomen done yesterday reveals moderately large abdominal ascites and pleural effusion bilaterally; cystic mass entail of pancreas which is increased in size compared to old exam; 12 mm low density focus and posterior body of pancreas is unchanged from previous exam; changes in pancreatic exam possibly related to pancreatitis and pseudocyst formation GI recommending to continue to control pain as needed and advance diet to full liquids; Aldactone and Lasix at increased up to 50 mg daily and 40 mg daily respectively; counseling done for abstinence from alcohol Patient has been evaluated by general surgery for abdominal pain and ileus possibly secondary to pancreatitis; transverse colon measuring 7 cm at this time; patient is passing flatus and having loose bowel movements; surgery agreeable with slow advancing of diet as tolerated 03/14/2021 Patient is seen and evaluated in follow-up this morning continues to have some abdominal distention and discomfort noted on exam. GI along with surgery following closely and patient continues on oral Lasix along with Aldactone. Recently underwent paracentesis and will need close outpatient follow-up with GI in the outpatient setting. Patient was started on diet and continued on full liquids and will monitor. Patient lipase increased today at 1983. Potassium is slightly low at 3.3 and will be replaced. Sodium is 138 and current creatinine is 0.55. Patient is afebrile. Patient reports to getting up and walking more frequently although continues to have abdominal discomfort. Review of systems: Constitutional: No reports of fatigue, fever, or chills Cardiovascular: No reports of chest pain or palpitations Respiratory: No reports of shortness of breath or cough GI: No reports of nausea, vomiting, or diarrhea, reports abdominal distention and discomfort : No reports of dysuria or retention Neurovascular: No reports of weakness or numbness All medications have been reviewed Active Medications Furosemide (Furosemide 40 Mg Tab) 40 mg PO DAILY [facility] Last Admin: 03/14/21 08:23 Dose: 40 mg Documented by: Gabapentin (Gabapentin 100 Mg Cap) 100 mg PO DAILY [facility] Last Admin: 03/14/21 08:22 Dose: 100 mg Documented by: Heparin Sodium (Porcine) (Heparin Sodium,Porcine/Pf 5,000 Unit/0.5 Ml Syringe) 5,000 unit SQ Q12HR [facility] Last Admin: 03/14/21 08:23 Dose: 5,000 unit Documented by: Hydromorphone HCl (Hydromorphone 1 Mg/Ml 1 Ml Syringe) 1 mg IVP Q4HR PRN PRN Reason: Pain Lactulose (Lactulose 20 Gm/30 Ml Cup) 10 gm PO DAILY [facility] Last Admin: 03/14/21 08:23 Dose: 10 gm Documented by: Naloxone HCl (Naloxone 0.4 Mg/Ml 1 Ml Vial) 0.2 mg IV Q2M PRN PRN Reason: Opioid Reversal Nicotine (Nicotine 14mg/24hr Patch) 1 patch TRANSDERM DAILY [facility] Last Admin: 03/14/21 08:22 Dose: Not Given Documented by: Ondansetron HCl (Ondansetron 4 Mg/2 Ml Vial) 4 mg IVP Q8HR PRN PRN Reason: Nausea And Vomiting Pantoprazole Sodium (Pantoprazole 40 Mg Tablet) 40 mg PO BID [facility] Last Admin: 03/14/21 08:22 Dose: 40 mg Documented by: Simethicone (Simethicone 40 Mg/0.6 Ml Drops 2,000 Mg/30 Ml Bottle) 250 mg PO QID PRN PRN Reason: Bloating Last Admin: 03/13/21 16:00 Dose: 250 mg Documented by: Spironolactone (Spironolactone 25 Mg Tab) 100 mg PO DAILY [facility] Last Admin: 03/14/21 08:22 Dose: 100 mg Documented by: Objective - Vital Signs Vital signs: Vital Signs Temp 98.0 F 03/14/21 11:20 Pulse 94 03/14/21 11:20 Resp 16 03/14/21 11:20 BP 127/79 03/14/21 11:20 Pulse Ox 95 03/14/21 11:20 Intake & Output 03/13/21 03/14/21 03/14/21 18:59 06:59 18:59 Intake Total 1640 Balance 1640 Intake: Intake, IV Titration 800 Amount Sodium Chloride 0.9% 1, 800 000 ml @ 150 mls/hr IV . Q6H40M [facility] Rx#:[id number] Oral 840 Other: Voiding Method Toilet Toilet # Voids 2 1 - Exam Patient is sitting up in the bed comfortably, awake alert and oriented 3, well- developed, well-nourished, thin built. Temp is 98F, pulse is 94, respirations are 16, blood pressure is 127/79, oxygen saturation is 95% on room air. HEENT: Normocephalic. Neck is supple. Pupils reactive. Nostrils clear. Oral cavity is moist. Ears reveal no drainage. Neck reveals no JVD, carotid bruits, or thyromegaly. CHEST EXAMINATION: Diminished breath sounds bilaterally with no wheezing or rhonchi noted. CARDIAC: S1, S2 are muffled ABDOMEN: Abdominal is soft, mildly tender on palpation, slightly distended, no guarding or rigidity. Extremities: reveal no edema. No clubbing or cyanosis Neurologically awake, alert, oriented x3 with well-coordinated movements. No focal deficits noted Skin: No rash or skin lesions. Psychiatric: Cooperative. Non-suicidal Musculoskeletal: No joint swelling or deformity. Normal range of motion. - Labs CBC & Chem 7: 03/14/21 06:35 03/14/21 06:35 Labs: Abnormal Lab Results - Last 24 Hours (Table) 03/14/21 03/14/21 Range/Units 06:35 06:35 RBC 2.84 L (4.30-5.90) m/uL Hgb 7.7 L (13.0-17.5) gm/dL Hct 23.5 L (39.0-53.0) % Plt Count 452 H (150-450) k/uL Potassium 3.3 L (3.5-5.1) mmol/L BUN 6 L (9-20) mg/dL Creatinine 0.55 L (0.66-1.25) mg/dL Total Bilirubin <0.1 L (0.2-1.3) mg/dL AST 14 L (17-59) U/L Total Protein 4.7 L (6.3-8.2) g/dL Albumin 2.2 L (3.5-5.0) g/dL Lipase 1983 H (23-300) U/L Microbiology - Last 24 Hours (Table) 03/10/21 16:05 Gram Stain - Preliminary Ascites Fluid Body Fluid Culture - Preliminary Assessment and Plan Assessment: Acute pancreatitis likely alcoholic pancreatitis Recurrent ascites Severe alcohol abuse Chronic low back pain Bilateral lower extremity peripheral neuropathy. Alcohol-related Hypertension Asthma stable Anxiety/depression Currently everyday smoker DVT prophylaxis GI prophylaxis Full code Recommendations and discussion: Recommend continue with current medications, management, and symptomatic treatment. Lipase trending up in surgery and GI following. Lipase is 1983 today Patient will follow-up outpatient which GI Dr. Lees and will continue on Lasix and Aldactone. Patient recently underwent paracentesis and continues to have abdominal distention and discomfort although reports the passing gas and having loose stools. Surgery also following and slowly advancing diet as tolerated and currently on full liquids. Instructed the patient increase activity as tolerated. Continue to monitor closely for alcohol withdrawal and will use CIWA if needed. Will repeat labs and continue to monitor closely. Possible discharge in 24-48 hours.
--- NOTE | 2021-03-14 17:19 | P.PN ---
Subjective Progress Note Date: 03/14/21 Principal diagnosis: Pancreatitis, ascites This is a 45-year-old patient who was admitted with acute pancreatitis complicated with pseudocyst a mild ileus. As well as ascites related to underlying liver cirrhosis from alcohol abuse. He was seen and examined lying in bed. States his abdominal pain has improved. States he feels like he is getting slightly more distended. Denies any nausea or vomiting. He is tolerating his diet. States he had a small bowel movement. Objective - Vital Signs Vital signs: Vital Signs Temp 97.6 F 03/14/21 04:07 Pulse 58 L 03/14/21 04:07 Resp 14 03/14/21 04:07 BP 120/70 03/14/21 04:07 Pulse Ox 96 03/14/21 04:07 Intake & Output 03/13/21 03/14/21 03/14/21 18:59 06:59 18:59 Intake Total 1640 Balance 1640 Intake: Intake, IV Titration 800 Amount Sodium Chloride 0.9% 1, 800 000 ml @ 150 mls/hr IV . Q6H40M [facility] Rx#:[id number] Oral 840 Other: Voiding Method Toilet Toilet # Voids 2 1 - Exam General appearance: The patient is alert, oriented, appears in no acute distress. HET: Head is normocephalic and atraumatic. Conjunctiva pink. Sclera anicteric. Neck: Supple without lymphadenopathy. Abdomen: Soft, nontender, mildly distended with bowel sounds. No guarding or rigidity. Extremities: Normal skin color and turgor. No pedal edema Skin: No rashes, no jaundice Neurological: No focal deficits. Alert and oriented 3. - Labs CBC & Chem 7: 03/14/21 06:35 03/14/21 06:35 Labs: Abnormal Lab Results - Last 24 Hours (Table) 03/14/21 03/14/21 Range/Units 06:35 06:35 RBC 2.84 L (4.30-5.90) m/uL Hgb 7.7 L (13.0-17.5) gm/dL Hct 23.5 L (39.0-53.0) % Plt Count 452 H (150-450) k/uL Potassium 3.3 L (3.5-5.1) mmol/L BUN 6 L (9-20) mg/dL Creatinine 0.55 L (0.66-1.25) mg/dL Total Bilirubin <0.1 L (0.2-1.3) mg/dL AST 14 L (17-59) U/L Total Protein 4.7 L (6.3-8.2) g/dL Albumin 2.2 L (3.5-5.0) g/dL Lipase 1983 H (23-300) U/L Microbiology - Last 24 Hours (Table) 03/10/21 16:05 Gram Stain - Preliminary Ascites Fluid Body Fluid Culture - Preliminary Assessment and Plan (1) Acute pancreatitis Narrative/Plan: [id number] male who presented to the emergency department with abdominal pain worsening over the last 2-3 days duration, along with abdominal distention. The patient states he's had abdominal pain for the last 2 months duration. He has a history of pancreatitis, first diagnosed in August 2020. He states he was hospitalized 3 times while in [place], he states he was in [place] and drinking heavily up to 8-10 beers along with mixed drinks a day. He states he hasn't had any alcohol in the last 2 months duration. He does state he was hospitalized and had a paracentesis 1-1/2-2 weeks ago while in [place]. He denies any history of liver cirrhosis. He is not on any diuretics, he was started on lactulose after his last admission. His admission labs showed elevation in amylase and lipase consistent with acute pancreatitis. Repeat labs show pancr eatic enzymes are trending down, LFTs are normal. Had a CT of the abdomen and pelvis that showed bilateral pleural effusions, moderate with large amount of abdominal ascites, cystic mass in the tail of the pancreas which is 4 cm in size and slightly increased compared to last exam, distended large and small bowel loops consistent with ileus. Current Visit: Yes Status: Acute Code(s): K85.90 - ACUTE PANCREATITIS WITHOU T NECROSIS OR INFECTION, UNSP SNOMED Code(s): 629672099 (2) Ascites Narrative/Plan: Ascites likely secondary to alcoholic cirrhosis of the liver. Paracentesis ordered with fluid studies. Patient has long history of significant alcohol abuse. Lasix was increased to 40 mg daily, Aldactone 50 mg daily. Patient underwent paracentesis with 6.9 L of fluid removed. Current Visit: Yes Status: Acute Code(s): R18.8 - OTHER ASCITES SNOMED Code(s): 764155199 (3) Alcohol abuse Current Visit: Yes Status: Acute Code(s): F10.10 - ALCOHOL ABUSE, UNCOMPLICATED SNOMED Code(s): 83728760 (4) Anemia Current Visit: Yes Status: Acute Code(s): D64.9 - ANEMIA, UNSPECIFIED SNOMED Code(s): 852276120 Plan: 1. Diet As tolerated, low sodium 2. Lasix 40 mg daily and Aldactone 50 mg daily o 3. Daily CBC, transfuse for hemoglobin less than 7 4. Anemia profile ordered and reviewed 5. Protonix 40 mg twice a day 6. Antiemetics as needed 7. Avoid NSAIDs 8. Recommend Alcohol cessation and smoking cessation Thank you for this consultation, patient is cleared from gastroenterology for discharge. Patient will need outpatient follow-up in one week. Dr. Lees I agree with the dictator's note, documented as a scribe by Deepa Peña.
[2021-03-15] MEDS: HYDROmorphone 1 MG/ML 1 ML SYRINGE IVP PRN ×3 (03:39→12:17)
[2021-03-15 06:13] LABS: Basophils % (A) 0 %; Eosinophils # (A) 0.7 k/uL (0-0.7); Eosinophils % (A) 12 %; HCT 23.9 % (39.0-53.0); Hypochromasia Slight; Lymphocytes % (A) 17 %; MCH 27.2 pg (25.0-35.0); MCHC 33.3 g/dL (31.0-37.0); MCV 81.9 fL (80.0-100.0); Monocytes # (A) 0.5 k/uL (0-1.0); Monocytes % (A) 8 %; Neutrophils # (A) 3.5 k/uL (1.3-7.7); Neutrophils % (A) 61 %; Platelet Count 476 k/uL (150-450); RBC 2.92 m/uL (4.30-5.90); RDW 14.5 % (11.5-15.5); WBC 5.7 k/uL (3.8-10.6)
[2021-03-15] MEDS: SPIRONOLACTONE 25 MG TAB PO SCH (07:58)
[2021-03-15] MEDS: FUROSEMIDE 40 MG TAB PO SCH (07:58)
[2021-03-15] MEDS: PANTOPRAZOLE 40 MG TABLET PO SCH (07:58)
[2021-03-15] MEDS: GABAPENTIN 100 MG CAP PO SCH (07:58)
[2021-03-15] MEDS: LACTULOSE 20 GM/30 ML CUP PO SCH (07:58)
[2021-03-15] MEDS: HEPARIN SODIUM,PORCINE/PF 5,000 UNIT/0.5 ML SYRINGE SQ SCH (07:58)
[2021-03-15] MEDS: NICOTINE 14MG/24HR PATCH TRANSDERM SCH (07:59)
[2021-03-15 09:45] LABS: African American GFR (CKD) 151.7 (60.0-200.0); Albumin 2.4 g/dL (3.80-4.90); Albumin/Globulin Ratio 1.14 (1.60-3.17); Anion Gap 7.3 mmol/L (4.00-12.00); Calcium 7.8 mg/dL (8.7-10.3); Carbon Dioxide 25.7 mmol/L (21.6-31.8); Globulin 2.1 g/dL (1.6-3.3); Non-African American GFR(CKD) 130.9 (60.0-200.0); Potassium 3.6 mmol/L (3.5-5.5); Total Bilirubin 0.2 mg/dL (0.2-1.2); Total Protein 4.5 g/dL (6.2-8.2)
--- NOTE | 2021-03-15 10:01 | US ---
EXAMINATION TYPE: US abdomen limited DATE OF EXAM: 03/15/2021 COMPARISON: US CLINICAL HISTORY: Assess for poss ascites and needing paracentesis. ABD distention Moderate amount of ascites, more right flank IMPRESSION: Moderate ascites
[2021-03-15 13:35] VITALS: BP 118/79; PULSE 89; RESP 18; TEMP 98
--- NOTE | 2021-03-15 13:41 | P.PN ---
Subjective Progress Note Date: 03/15/21 Principal diagnosis: Pancreatitis, ascites This is a 45-year-old patient who was admitted with acute pancreatitis complicated with pseudocyst a mild ileus. As well as ascites related to underlying liver cirrhosis from alcohol abuse. He was seen and examined lying in bed. States his abdominal pain has improved. States he feels like he is getting slightly more distended. Denies any nausea or vomiting. He is tolerating his diet but has little appetite. Denies any bowel movement today, states passing some gas. Patient underwent limited ultrasound yesterday evening showing moderate amount of ascites discussed with patient would like to hold off on paracentesis as patient's abdomen is soft, with only mild distention despite ultrasound findings. Objective - Vital Signs Vital signs: Vital Signs Temp 97.8 F 03/15/21 04:18 Pulse 77 03/15/21 08:00 Resp 16 03/15/21 08:00 BP 112/71 03/15/21 04:18 Pulse Ox 97 03/15/21 04:18 Intake & Output 03/14/21 03/15/21 03/15/21 18:59 06:59 18:59 Intake Total 360 Balance 360 Intake: Oral 360 Other: Voiding Method Toilet Toilet Toilet # Voids 4 3 1 - Exam General appearance: The patient is alert, oriented, appears in no acute distress. HET: Head is normocephalic and atraumatic. Conjunctiva pink. Sclera anicteric. Neck: Supple without lymphadenopathy. Abdomen: Soft, nontender, mildly distended with bowel sounds. No guarding or rigidity. Extremities: Normal skin color and turgor. No pedal edema Skin: No rashes, no jaundice Neurological: No focal deficits. Alert and oriented 3. - Labs CBC & Chem 7: 03/15/21 05:28 03/15/21 05:28 Labs: Abnormal Lab Results - Last 24 Hours (Table) 03/15/21 03/15/21 Range/Units 05:28 05:28 RBC 2.92 L (4.30-5.90) m/uL Hgb 8.0 L (13.0-17.5) gm/dL Hct 23.9 L (39.0-53.0) % Plt Count 476 H (150-450) k/uL BUN 7.0 L (9.0-27.0) mg/dL Creatinine 0.5 L (0.6-1.5) mg/dL Calcium 7.8 L (8.7-10.3) mg/dL AST 11 L (14-35) U/L ALT 9 L (10-49) U/L Total Protein 4.5 L (6.2-8.2) g/dL Albumin 2.40 L (3.80-4.90) g/dL Albumin/Globulin Ratio 1.14 L (1.60-3.17) g/dL Lipase 175 H (14-60) U/L Microbiology - Last 24 Hours (Table) 03/10/21 16:05 Anaerobic Culture - Final Ascites Fluid 03/10/21 16:05 Gram Stain - Final Ascites Fluid Body Fluid Culture - Final Assessment and Plan (1) Acute pancreatitis Narrative/Plan: [id number] male who presented to the emergency department with abdominal pain worsening over the last 2-3 days duration, along with abdominal distention. The patient states he's had abdominal pain for the last 2 months duration. He has a history of pancreatitis, first diagnosed in August 2020. He states he was hospitalized 3 times while in [place], he states he was in [place] and drinking heavily up to 8-10 beers along with mixed drinks a day. He states he hasn't had any alcohol in the last 2 months duration. He does state he was hospitalized and had a paracentesis 1-1/2-2 weeks ago while in [place]. He denies any hist ory of liver cirrhosis. He is not on any diuretics, he was started on lactulose after his last admission. His admission labs showed elevation in amylase and lipase consistent with acute pancreatitis. Repeat labs show pancreatic enzymes are trending down, LFTs are normal. Had a CT of the abdomen and pelvis that showed bilateral pleural effusions, moderate with large amount of abdominal ascites, cystic mass in the tail of the pancreas which is 4 cm in size and slightly increased compared to last exam, distended large and small bowel loops consistent with ileus. Current Visit: Yes Status: Acute Code(s): K85.90 - ACUTE PANCREATITIS WITHOUT NECROSIS OR INFECTION, UNSP SNOMED Code(s): 534653004 (2) Ascites Narrative/Plan: Ascites likely secondary to alcoholic cirrhosis of the liver. Paracentesis ordered with fluid studies. Patient has long history of significant alcohol abuse. Lasix was increased to 40 mg daily, Aldactone 50 mg daily. Patient underwent paracentesis with 6.9 L of fluid removed. Recommend outpatient paracentesis as needed, patient to follow-up with Tianna Cisse in the office Current Visit: Yes Status: Acute Code(s): R18.8 - OTHER ASCITES SNOMED Code(s): 395110547 (3) Alcohol abuse Current Visit: Yes Status: Acute Code(s): F10.10 - ALCOHOL ABUSE, UNCOMPLICATED SNOMED Code(s): 56998819 (4) Anemia Narrative/Plan: Patient had a drop in his hemoglobin from 9.4-7.9. No signs and symptoms of GI bleed. Patient does admit to daily use of ibuprofen. He's had no previous history of peptic ulcer disease or GI bleed. No previous EGD or colonoscopy. Patient agreeable to proceed with EGD for evaluation of anemia, possible etiologies could include peptic ulcer disease, AVM, gastritis, esophagitis, or other etiology. Current Visit: Yes Status: Acute Code(s): D64.9 - ANEMIA, UNSPECIFIED SNOMED Code(s): 273118965 Plan: 1. Diet As tolerated, low sodium 2. Lasix 40 mg daily and Aldactone 50 mg daily o 3. Daily CBC, transfuse for hemoglobin less than 7 4. Anemia profile ordered and reviewed 5. Protonix 40 mg twice a day 6. Antiemetics as needed 7. Avoid NSAIDs 8. Recommend Alcohol cessation and smoking cessation Thank you for this consultation, patient is cleared from gastroenterology for discharge. Patient will need outpatient follow-up in one week. Dr. Lees I agree with the dictator's note, documented as a scribe by Deepa Peña.
--- NOTE | 2021-03-15 16:28 | P.DS ---
Providers Date of admission: 03/09/21 13:34 Expected date of discharge: 03/15/21 Attending physician: Gaviota Leach Consults: 03/09/21 13:35 Consult Physician Routine Consulting Provider: Gabriella Lees Consult Reason/Comments: Ascites, acute pancreatitis Do you want consulting provider notified?: Yes 03/09/21 13:41 Consult Physician Routine Consulting Provider: Rod Dodson Consult Reason/Comments: Paracentesis Do you want consulting provider notified?: Yes 03/12/21 17:06 Consult Physician Routine Consulting Provider: Marcio Callahan Consult Reason/Comments: ileus/abdominal distention Do you want consulting provider notified?: Yes Primary care physician: [facility] Course: Final diagnosis Acute pancreatitis likely alcoholic pancreatitis Recurrent ascites Severe alcohol abuse Chronic low back pain Bilateral lower extremity peripheral neuropathy. Alcohol-related Hypertension Asthma stable Anxiety/depression Currently everyday smoker DVT prophylaxis GI prophylaxis Full code Discharge disposition Patient is being discharged in a stable condition with guarded prognosis to home. Patient will follow-up with Rosemarie Temple NP upon discharge. Patient will also need to follow-up with GI in the outpatient setting. Patient will continue on Protonix twice daily along with spironolactone 100 mg daily and Lasix 40 mg daily. Total time taken is greater than 35 minutes Hospital course 45-year-old male with a known history of hypertension, alcohol abuse and history of acute alcoholic pancreatitis, asthma, anxiety/depression currently everyday smoker presents to ER with complaints of abdominal distention and epigastric abdominal pain. Patient states that he is has not drink for the past 2 months but recently went to [place] where he has been drinking heavily. Patient came back to [place] to 4 days ago. He started having abdominal pain mainly in the epigastric region radiating to the left side of the abdomen associated with nausea and vomiting. patient is unable to take any oral intake and pain intensity at 9 out of 10 in severity. no complaints of chest pain or shortness breath. no fever no chills. patient had previous paracentesis about a month ago patient was supposed to follow-up with on of this month. Denies any leg swelling. No complaints of diffuse abdominal pain. 03/12/2021 Patient is seen and evaluated resting in bed; complains of severe abdominal pain; requiring IV pain medication every 3-4 hours Vital signs are reviewed and reveal temperature of 98, pulse 106, respirations 16 and blood pressure 131/77 with SpO2 of 97% on room air On physical exam abdomen is distended with decreased bowel sounds; some guarding and lower quadrants; intestinal ileus and abdominal ascites; we will keep patient on clear liquid diet and IV fluids; patient encouraged to increase ambulation 03/13/2021 Patient is seen and evaluated resting in bed; has been eating Dilaudid every 2 hours; report some improvement in pain CT of abdomen done yesterday reveals moderately large abdominal ascites and pleural effusion bilaterally; cystic mass entail of pancreas which is increased in size compared to old exam; 12 mm low density focus and posterior body of pancreas is unchanged from previous exam; changes in pancreatic exam possibly related to pancreatitis and pseudocyst formation GI recommending to continue to control pain as needed and advance diet to full liquids; Aldactone and Lasix at increased up to 50 mg daily and 40 mg daily respectively; counseling done for abstinence from alcohol Patient has been evaluated by general surgery for abdominal pain and ileus possibly secondary to pancreatitis; transverse colon measuring 7 cm at this time; patient is passing flatus and having loose bowel movements; surgery agreeable with slow advancing of diet as tolerated 03/14/2021 Patient is seen and evaluated in follow-up this morning continues to have some abdominal distention and discomfort noted on exam. GI along with surgery following closely and patient continues on oral Lasix along with Aldactone. Recently underwent paracentesis and will need close outpatient follow-up with GI in the outpatient setting. Patient was started on diet and continued on full liquids and will monitor. Patient lipase increased today at 1983. Potassium is slightly low at 3.3 and will be replaced. Sodium is 138 and current creatinine is 0.55. Patient is afebrile. Patient reports to getting up and walking more frequently although continues to have abdominal discomfort. 03/15/2021 Patient is seen in follow-up this morning and lipase improved at 175 this morning, potassium also improved at 3.6 and sodium is 138, any functions within normal limits. Patient underwent abdominal ultrasound showing moderate amount of ascites more right flank area. She underwent paracentesis during this hospitalization along with one month ago and is concerned about recurrent ascites. Patient was given information to interventional radiology and prescription for possible paracentesis in the outpatient setting. Discussed with GI along with patient and recommending follow-up this week at scheduled appointment to discuss medications and treatment plans moving forward. Patient verbalized understanding. Patient is adamant about going home today and asking when he can be discharged. Currently no reports of chest pain, shortness of breath, or palpitations. Patient is afebrile. No reports of nausea or vomiting and patient is tolerating diet. On exam vital signs are stable. Cardio S1, S2 are muffled. Respiratory shows diminished breath sounds at the bases with no wheezing or rhonchi noted. Abdomen is soft and nontender. Nervous system shows no focal deficits. Please refer to medication reconciliation sheet for a list of medications. Patient Condition at Discharge: Fair Plan - Discharge Summary New Discharge Prescriptions: New Furosemide [Lasix] 40 mg PO DAILY 30 Days #30 tab HYDROcodone/APAP 5-325MG [[place] 5-325] 1 tab PO Q6HR PRN 3 Days #9 tab PRN Reason: Pain Pantoprazole [Protonix] 40 mg PO BID #30 tablet. Spironolactone [Aldactone] 100 mg PO DAILY 30 Days #120 tab Nicotine 14Mg/24Hr Patch [Habitrol] 1 patch TRANSDERM DAILY #30 patch Continue Gabapentin [Neurontin] 100 mg PO DAILY Lactulose 10 gm PO DAILY Discharge Medication List Gabapentin [Neurontin] 100 mg PO DAILY 03/09/21 [History] Lactulose 10 gm PO DAILY 03/09/21 [History] Furosemide [Lasix] 40 mg PO DAILY 30 Days #30 tab 03/15/21 [Rx] HYDROcodone/APAP 5-325MG [[place] 5-325] 1 tab PO Q6HR PRN 3 Days #9 tab 03/15/21 [Rx] Nicotine 14Mg/24Hr Patch [Habitrol] 1 patch TRANSDERM DAILY #30 patch 03/15/21 [Rx] Pantoprazole [Protonix] 40 mg PO BID #30 tablet. 03/15/21 [Rx] Spironolactone [Aldactone] 100 mg PO DAILY 30 Days #120 tab 03/15/21 [Rx] Follow up Appointment(s)/Referral(s): Tianna Cisse PAC [REFERRING] - 03/22/21 2:45 pm (patient will see dante duke) Rosemarie Temple FNPBC [REFERRING] - 03/23/21 1:15 pm (patient must wear a mask into the office) Ambulatory/Diagnostic Orders: Complete Blood Count w/diff [LAB.AMB] Time Frame: 3 Days, Location: None Selected Patient Instructions/Handouts: Pancreatitis (DC), Acute Abdominal Pain (DC), Ileus (DC) Activity/Diet/Wound Care/Special Instructions: Activity Limited until follow-up Follow-up with primary care provider upon discharge Follow-up with GI as discussed and scheduled Continue with medications as prescribed Follow-up outpatient with interventional radiology with number provided Continue with full liquid diet and slowly advance to low fiber as tolerated and follow-up with GI Avoid alcohol intake Discharge Disposition: HOME SELF-CARE
== END 2021-03-15 13:45 | disposition home or self-care (01) | DRG 439 ==
LOC: EC 11:49 → 5NMEDONC 13:34
PROVIDERS: ADMIT Internal Medicine; ATTEND Internal Medicine
PROC: 0DB78ZX Excision of Stomach, Pylorus, Via Natural or Artificial Opening Endoscopic, Diagnostic (ICD-10-PCS; principal; 2021-03-11 12:30)
DX: K85.20 Alcohol induced acute pancreatitis without necrosis or infection (principal); K86.3 Pseudocyst of pancreas; K56.7 Ileus, unspecified; K70.31 Alcoholic cirrhosis of liver with ascites; K86.1 Other chronic pancreatitis; F17.200 Nicotine dependence, unspecified, uncomplicated; I10 Essential (primary) hypertension; F10.10 Alcohol abuse, uncomplicated; J45.909 Unspecified asthma, uncomplicated; G62.9 Polyneuropathy, unspecified; G89.29 Other chronic pain; M54.5 Low back pain; D63.8 Anemia in other chronic diseases classified elsewhere; K29.70 Gastritis, unspecified, without bleeding; K44.9 Diaphragmatic hernia without obstruction or gangrene; Z79.899 Other long term (current) drug therapy; K64.5 Perianal venous thrombosis
CPT/HCPCS: 36415; 43239; 49083; 74018; 74177; 76700; 76705; 80048; 80053; 80076; 80320; 81001; 82042; 82140; 82150; 82550; 82607; 82728; 82746; 83540; 83550; 83605; 83690; 84157; 84484; 85025; 85045; 85610; 85730; 87070; 87075; 87205; 88108; 88305; 89050; 93005; 96360; 96361; 96374; 96375; 99285

== ENCOUNTER → 2021-03-18 | Outpatient (CLI) | payer OTHER ==
[2021-03-18 16:41] LABS: Basophils # (A) 0.05 X 10*3/uL (0.00-0.10); Basophils % (A) 0.6 %; Eosinophils # (A) 0.27 X 10*3/uL (0.04-0.35); Eosinophils % (A) 3.4 %; HCT 31.6 % (39.6-50.0); HGB 9.6 g/dL (13.0-17.0); Lymphocytes # (A) 1.87 X 10*3/uL (0.90-5.00); Lymphocytes % (A) 23.4 %; MCH 26.2 pg (27.0-32.0); MCHC 30.4 g/dL (32.0-37.0); MCV 86.1 fL (80.0-97.0); Mean Platelet Volume 9.6 fL (9.5-12.2); Monocytes # (A) 0.84 X 10*3/uL (0.20-1.00); Monocytes % (A) 10.5 %; Neutrophils # (A) 4.93 X 10*3/uL (1.80-7.70); Neutrophils % (A) 61.6 %; Platelet Count 763 X 10*3/uL (140-440); RBC 3.67 X 10*6/uL (4.40-5.60); RDW 15.1 % (11.5-14.5)
[2021-03-18 23:17] LABS: ALT <8 U/L (10-49); AST 15 U/L (14-35); Albumin/Globulin Ratio 1.17 (1.60-3.17); Alkaline Phosphatase 108 U/L (41-126); BUN/Creat Ratio 18.75 Ratio (12.00-20.00); Calcium 8.8 mg/dL (8.7-10.3); Carbon Dioxide 25.6 mmol/L (21.6-31.8); Chloride 103 mmol/L (96-109); Globulin 2.9 g/dL (1.6-3.3); Glucose 137 mg/dL (70-110); Non-African American GFR(CKD) 107.9 (60.0-200.0); Potassium 4.1 mmol/L (3.5-5.5); Sodium 140 mmol/L (135-145); Total Bilirubin 0.1 mg/dL (0.3-1.2); Total Protein 6.3 g/dL (6.2-8.2)
== END | disposition home or self-care (01) ==
LOC: LABWHC1 10:52
PROVIDERS: ATTEND Registered Nurse
DX: D64.9 Anemia, unspecified (principal); E87.6 Hypokalemia
CPT/HCPCS: 36415; 80053; 85025

== ENCOUNTER 2021-03-29 10:55 | Inpatient (IN) | payer OTHER ==
[2021-03-29] MEDS ORDERED: ONDANSETRON 4 MG/2 ML VIAL IVP STA (11:16)
[2021-03-29] MEDS ORDERED: HYDROmorphone 1 MG/ML 1 ML SYRINGE IVP STA (11:16)
[2021-03-29 11:41] LABS: Basophils # (A) 0.1 k/uL (0-0.2); Basophils % (A) 1 %; Eosinophils # (A) 1.6 k/uL (0-0.7); Eosinophils % (A) 12 %; HCT 34.4 % (39.0-53.0); HGB 10.8 gm/dL (13.0-17.5); Hypochromasia Slight; Lymphocytes # (A) 1.5 k/uL (1.0-4.8); Lymphocytes % (A) 12 %; MCHC 31.3 g/dL (31.0-37.0); MCV 83.1 fL (80.0-100.0); Mean Platelet Volume 7.2; Monocytes # (A) 0.6 k/uL (0-1.0); Monocytes % (A) 4 %; Neutrophils # (A) 8.7 k/uL (1.3-7.7); Neutrophils % (A) 69 %; Platelet Count 703 k/uL (150-450); RBC 4.14 m/uL (4.30-5.90); RDW 14.7 % (11.5-15.5); WBC 12.7 k/uL (3.8-10.6)
[2021-03-29 11:54] LABS: ALT 38 U/L (4-49); AST 39 U/L (17-59); African American GFR (CKD) >90 (>60 ml/min/1.73 sqM); Albumin 3.5 g/dL (3.5-5.0); Alkaline Phosphatase 171 U/L (38-126); Anion Gap 14 mmol/L; Blood Urea Nitrogen 22 mg/dL (9-20); Calcium 10.2 mg/dL (8.4-10.2); Carbon Dioxide 23 mmol/L (22-30); Chloride 101 mmol/L (98-107); Glucose 150 mg/dL (74-99); Non-African American GFR(CKD) >90 (>60 ml/min/1.73 sqM); Potassium 4.7 mmol/L (3.5-5.1); Sodium 138 mmol/L (137-145); Total Bilirubin 0.3 mg/dL (0.2-1.3); Total Protein 6.8 g/dL (6.3-8.2)
[2021-03-29 11:58] LABS: INR 1.1 (<1.2); Partial Thromboplastin Time 24.7 sec (22.0-30.0); Prothrombin Time 11.6 sec (9.0-12.0)
[2021-03-29 12:21] LABS: Lipase 3912 U/L (23-300)
[2021-03-29 12:22] LABS: Amylase 2708 U/L (30-110)
[2021-03-29] MEDS ORDERED: NALOXONE 0.4 MG/ML 1 ML VIAL IV PRN (12:38)
[2021-03-29] MEDS ORDERED: HYDROmorphone 0.5 MG/0.5 ML SYRINGE IVP PRN ×2 (12:38→16:10)
[2021-03-29] MEDS ORDERED: ONDANSETRON 4 MG/2 ML VIAL IVP PRN (12:38)
--- NOTE | 2021-03-29 12:38 | ED ---
Abdominal Pain HPI - General Chief Complaint: Abdominal Pain Stated Complaint: pancreatitis Time Seen by Provider: 03/29/21 10:58 Source: patient, RN notes reviewed Mode of arrival: ambulatory Limitations: no limitations - History of Present Illness Initial Comments: 45-year-old male presents emergency Department chief complaint abdominal pain. Patient's had recurrent pancreatitis secondary to alcohol abuse. Patient states she's had ascites, had have paracentesis in the past. Patient denies any fevers or chills patient states she's had increasing abdominal pain swelling distention. Patient states he is unable to tolerate the pain unable bleed at home. 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 - Related Data Home Medications Medication Instructions Recorded Confirmed Lactulose 10 gm PO DAILY 03/09/21 03/29/21 Gabapentin [Neurontin] 300 mg PO BID 03/29/21 03/29/21 Spironolactone [Aldactone] 100 mg PO DAILY 03/29/21 03/29/21 Previous Rx's Medication Instructions Recorded Furosemide [Lasix] 40 mg PO DAILY 30 Days #30 tab 03/15/21 Pantoprazole [Protonix] 40 mg PO BID #30 tablet. 03/15/21 Allergies Allergy/AdvReac Type Severity Reaction Status Date / Time No Known Allergies Allergy Verified 03/29/21 11:58 Review of Systems ROS Statement: Those systems with pertinent positive or pertinent negative responses have been documented in the HPI. ROS Other: All systems not noted in ROS Statement are negative. Past Medical History Past Medical History: Asthma, Hypertension, Neurologic Disorder, Renal Disease Additional Past Medical History / Comment(s): Pt recently admitted to [facility] on 07/25/20 with acute alcohol pancreatitis/alcohol abuse/leukocytosis. Other hx: ETOH with drawal with tremors/seizure, bronchitis, neuropathy R leg/R foot pain/limps, chronic low back pain/5 disc ruptured, 2017 pt had dialtysis for 3 months but states kidneys are working fine now, insomnia. History of Any Multi-Drug Resistant Organisms: None Reported Past Surgical History: No Surgical Hx Reported Additional Past Surgical History / Comment(s): Rhinoplasty, sinus scrapped, L lower eyelid laceration/repair, R 2nd toe metatarsopharangeal arthroplasty. Past Anesthesia/Blood Transfusion Reactions: No Reported Reaction Past Psychological History: Anxiety, Depression Smoking Status: Current every day smoker Past Alcohol Use History: None Reported Past Drug Use History: None Reported - Past Family History Mother Family Medical History: No Reported History Additional Family Medical History / Comment(s): Mother is healthy. Father Family Medical History: No Reported History Additional Family Medical History / Comment(s): Father is healthy General Exam Limitations: no limitations General appearance: alert, in no apparent distress Head exam: Present: atraumatic, normocephalic, normal inspection Respiratory exam: Present: normal lung sounds bilaterally. Absent: respiratory distress, wheezes, rales, rhonchi, stridor Cardiovascular Exam: Present: regular rate, normal rhythm, normal heart sounds. Absent: systolic murmur, diastolic murmur, rubs, gallop, clicks GI/Abdominal exam: Present: soft, distended, tenderness, normal bowel sounds. Absent: guarding, rebound, rigid Neurological exam: Present: alert, oriented X3 Course Vital Signs 03/29/21 03/29/21 10:56 12:14 Temperature 98.6 F Pulse Rate 89 105 H Respiratory 16 18 Rate Blood Pressure 135/86 134/95 O2 Sat by Pulse 100 100 Oximetry Medical Decision Making - Medical Decision Making Patient's amylase and lipase are surrounding elevated. Patient's pain is uncontrolled. Patient be admitted for acute pancreatitis. - Lab Data Result diagrams: 03/29/21 11:22 03/29/21 11:22 Lab Results 03/29/21 03/29/21 03/29/21 Range/Units 11:22 11:22 11:22 WBC 12.7 H (3.8-10.6) k/uL RBC 4.14 L (4.30-5.90) m/uL Hgb 10.8 L (13.0-17.5) gm/dL Hct 34.4 L (39.0-53.0) % MCV 83.1 (80.0-100.0) fL MCH 26.0 (25.0-35.0) pg MCHC 31.3 (31.0-37.0) g/dL RDW 14.7 (11.5-15.5) % Plt Count 703 H (150-450) k/uL MPV 7.2 Neutrophils % 69 % Lymphocytes % 12 % Monocytes % 4 % Eosinophils % 12 % Basophils % 1 % Neutrophils # 8.7 H (1.3-7.7) k/uL Lymphocytes # 1.5 (1.0-4.8) k/uL Monocytes # 0.6 (0-1.0) k/uL Eosinophils # 1.6 H (0-0.7) k/uL Basophils # 0.1 (0-0.2) k/uL Hypochromasia Slight PT 11.6 (9.0-12.0) sec INR 1.1 (<1.2) APTT 24.7 (22.0-30.0) sec Sodium 138 (137-145) mmol/L Potassium 4.7 (3.5-5.1) mmol/L Chloride 101 (98-107) mmol/L Carbon Dioxide 23 (22-30) mmol/L Anion Gap 14 mmol/L BUN 22 H (9-20) mg/dL Creatinine 0.99 (0.66-1.25) mg/dL Est GFR (CKD-EPI)AfAm >90 (>60 ml/min/1.73 sqM) Est GFR (CKD-EPI)NonAf >90 (>60 ml/min/1.73 sqM) Glucose 150 H (74-99) mg/dL Plasma Lactic Acid Valentino (0.7-2.0) mmol/L Calcium 10.2 (8.4-10.2) mg/dL Total Bilirubin 0.3 (0.2-1.3) mg/dL AST 39 (17-59) U/L ALT 38 (4-49) U/L Alkaline Phosphatase 171 H (38-126) U/L Total Protein 6.8 (6.3-8.2) g/dL Albumin 3.5 (3.5-5.0) g/dL Amylase 2708 H* (30-110) U/L Lipase 3912 H (23-300) U/L 03/29/21 Range/Units 11:22 WBC (3.8-10.6) k/uL RBC (4.30-5.90) m/uL Hgb (13.0-17.5) gm/dL Hct (39.0-53.0) % MCV (80.0-100.0) fL MCH (25.0-35.0) pg MCHC (31.0-37.0) g/dL RDW (11.5-15.5) % Plt Count (150-450) k/uL MPV Neutrophils % % Lymphocytes % % Monocytes % % Eosinophils % % Basophils % % Neutrophils # (1.3-7.7) k/uL Lymphocytes # (1.0-4.8) k/uL Monocytes # (0-1.0) k/uL Eosinophils # (0-0.7) k/uL Basophils # (0-0.2) k/uL Hypochromasia PT (9.0-12.0) sec INR (<1.2) APTT (22.0-30.0) sec Sodium (137-145) mmol/L Potassium (3.5-5.1) mmol/L Chloride (98-107) mmol/L Carbon Dioxide (22-30) mmol/L Anion Gap mmol/L BUN (9-20) mg/dL Creatinine (0.66-1.25) mg/dL Est GFR (CKD-EPI)AfAm (>60 ml/min/1.73 sqM) Est GFR (CKD-EPI)NonAf (>60 ml/min/1.73 sqM) Glucose (74-99) mg/dL Plasma Lactic Acid Valentino 2.1 H* (0.7-2.0) mmol/L Calcium (8.4-10.2) mg/dL Total Bilirubin (0.2-1.3) mg/dL AST (17-59) U/L ALT (4-49) U/L Alkaline Phosphatase (38-126) U/L Total Protein (6.3-8.2) g/dL Albumin (3.5-5.0) g/dL Amylase (30-110) U/L Lipase (23-300) U/L Disposition Clinical Impression: Acute on chronic pancreatitis Disposition: ADMITTED IP TO THIS [facility] Condition: Fair Referrals: Silvia Rios MD [Primary Care Provider] - 1-2 days
[2021-03-29] MEDS ORDERED: SODIUM CHLORIDE 0.9% 1,000 ML IV ONE (12:53)
[2021-03-29] MEDS: HYDROmorphone 1 MG/ML 1 ML SYRINGE IVP PRN ×4 (13:19→21:09)
[2021-03-29] MEDS: SODIUM CHLORIDE 0.9% 1,000 ML IV SCH (13:20)
[2021-03-29 14:15] LABS: Appearance,Urine Cloudy (Clear); Bilirubin,Urine Negative (Negative); Blood,Urine Negative (Negative); Cellular Casts,Urine 3 /lpf (0); Color,Urine Yellow; Glucose,Urine (UA) Negative (Negative); Hyaline Casts,Urine 42 /lpf (0-2); Ketones,Urine Trace (Negative); Leukocyte Esterase,Urine Trace (Negative); Mucus,Urine Moderate /hpf; Nitrite,Urine Negative (Negative); Protein,Urine 1+ (Negative); RBC,Urine 1 /hpf (0-5); Specific Gravity,Urine 1.036 (1.001-1.035); Squamous Epithelial Cell,Urine <1 /hpf (0-4); Urobilinogen,Urine <2.0 mg/dL (<2.0); WBC,Urine 8 /hpf (0-5)
--- NOTE | 2021-03-29 14:50 | US ---
EXAMINATION TYPE: US liver DATE OF EXAM: 03/29/2021 COMPARISON: CT 03/12/2021, US 03/11/2021 CLINICAL HISTORY: pancreatitis, hx of pseudocyst. Very difficult and limited exam due to ascites and patient pain EXAM MEASUREMENTS: Liver Length: 17.5 cm Gallbladder Wall: 0.2 cm CBD: 0.5 cm Right Kidney: 11.2 x 4.5 x 5.2 cm Pancreas: Unable to visualize pancreas. Midline abdomen, there is a complex cystic area visualized m easuring 9.9 x 4.8 x 7.7 cm Liver: Limited visualization. Heterogeneous Gallbladder: wnl Evidence for sonographic Jacobs's sign: No CBD: wnl as visualized Right Kidney: No hydronephrosis or masses seen Moderate amount of ascites visualized with septations IMPRESSION: 1. Moderate abdominal ascites with internal septations. 2. Complex cystic area in the region of the pancreas. CT is recommended.
[2021-03-29] MEDS ORDERED: SPIRONOLACTONE 25 MG TAB PO SCH (16:15)
[2021-03-29] MEDS ORDERED: FUROSEMIDE 40 MG TAB PO SCH (16:15)
[2021-03-29] MEDS: LACTULOSE 20 GM/30 ML CUP PO SCH (16:43)
[2021-03-29] MEDS: HYDROCORTISONE SUPPOSITORY 25 MG SUPP RECTAL SCH (17:28)
--- NOTE | 2021-03-29 19:11 | CONS ---
CONSULTATION DATE OF SERVICE: 03/29/2021 REASON FOR CONSULTATION: Abdominal pain. HISTORY OF PRESENT ILLNESS: The patient is 45-year-old white male who was just discharged home from the hospital about 10 days ago, came back to the emergency room complaining of severe epigastric pain, mostly in the left upper quadrant area that has been progressively getting worse in the last few days duration. The patient has history of chronic relapsing pancreatitis related to alcohol use complicated by the pseudocyst and during his last hospitalization he had a CT of the abdomen and pelvis done which revealed a 7 cm pancreatic pseudocyst in the tail of the pancreas. The patient was discharged home and he continued to have some abdominal pain. However, it got much worse in the last 2 days associated with some nausea and vomiting and came back to the emergency room for further evaluation. He also states that his abdomen is slightly distended. The patient was diagnosed with alcoholic cirrhosis of the liver with portal hypertension and ascites requiring large-volume paracentesis. The last one was performed about 2 weeks ago during his last hospitalization. He has history of heavy alcohol abuse and was drinking about 8-10 beers a day. He quit drinking completely about 3 months ago. He denies any fever, chills, or night sweats. PAST MEDICAL HISTORY: Significant for alcoholic liver disease with cirrhosis of the liver, portal hypertension, recurrent ascites, pancreatic pseudocyst, chronic pancreatitis. PAST SURGICAL HISTORY: EGD two weeks ago, rhinoplasty, laceration repair of the left lower eyelid. MEDICATIONS AT HOME: Include Neurontin and lactulose. ALLERGIES: None. SOCIAL HISTORY: Chronic smoker. Heavy alcohol abuse, quit drinking about 3 months ago. FAMILY HISTORY: Mother healthy. Father is also healthy. REVIEW OF SYSTEMS: CARDIOPULMONARY: No shortness of breath but he does have some chest pain radiating to the left arm. NEUROLOGY: Unremarkable. GENITOURINARY: No dysuria or hematuria. PSYCHIATRIC: Unremarkable. NEUROLOGY: Unremarkable. ENT/VISION: Unremarkable. CONSTITUTIONAL: Weight loss of about 10 pounds in the last one month. No fever, chills, night sweats. HEMATOLOGY: Unremarkable. ENDOCRINE: Unremarkable. PHYSICAL EXAMINATION: He appears comfortable. No apparent distress. Vital signs are stable. Blood pressure is 112/66, pulse rate 96, temperature 97.5. HEENT examination unremarkable. Conjunctivae pink. Sclerae anicteric. Oral cavity, no lesions. NECK: No JVD or lymph node enlargement. CHEST: Clear to auscultation. HEART: Regular rate and rhythm. ABDOMEN: Soft. It was distended. There was severe tenderness in the left upper quadrant area as well as in the epigastric area. There was some free fluid noted in the abdomen. EXTREMITIES: No pedal edema. NEUROLOGIC: Alert and oriented x3. No focal deficits. LABS: WBC 12.7, hemoglobin 10.8, platelets 703. AST, ALT within normal limits. Alkaline phosphatase 171 and T-bilirubin is 0.3. Amylase was 2708 and lipase was 3912. IMPRESSION: 1. Severe epigastric pain for the last several weeks' duration which is progressively getting worse. CT scan of the abdomen done on March 13 did show evidence of pancreatic pseudocyst measuring 4 cm in size in the tail of the pancreas. He now presents with worsening symptoms and elevated amylase and lipase consistent with a flare-up of chronic relapsing pancreatitis complicated with a pseudocyst formation. 2. Abdominal distention secondary to ascites. 3. History of liver cirrhosis secondary to alcohol use with recurrent ascites. Last paracentesis was done during his last hospitalization 2 weeks ago. 4. History of heavy alcohol abuse, quit drinking 3 months ago. 5. Thrombosed external hemorrhoid. RECOMMENDATIONS: 1. We will obtain ultrasound of the pancreas to evaluate for any significant change in the size of the pancreatic pseudocyst. 2. Pain medications as needed. 3. Keep him n.p.o. for now. 4. Will start him on diuretics with Lasix 40 mg daily and Aldactone 100 mg daily. 5. Abstinence from alcohol. 6. Will follow with you closely. Thank you for this consultation. MMODL / IJN: [id number] /
--- NOTE | 2021-03-29 22:31 | P.HPIM ---
History of Present Illness H&P Date: 03/29/21 Chief Complaint: Abdominal pain Patient is a 45-year-old male with a known history of hypertension, alcohol abuse and history of acute alcoholic pancreatitis, asthma, anxiety/depression currently everyday smoker presents to ER with complaints of abdominal distention and epigastric abdominal pain.He started having abdominal pain mainly in the epigastric region radiating to the left side of the abdomen associated with nausea and vomiting. patient is unable to take any oral intake and pain intensity at 9 out of 10 in severity. no complaints of chest pain or shortness breath. no fever no chills.Denies any leg swelling. patient had previous paracentesis.patient is supposed to follow-up with . Laboratory data showed WBC 12.7 hemoglobin 10.8 and platelets 703 Sodium 138 potassium 4.7 chloride 101 bicarb is 23 BUN 22 and creatinine 0.99 Lactic acid 2.1 Amylase 2708 and lipase 3912 Review of Systems Constitutional: Patient denies any fever or chills . No generalized weakness or weight loss. Abdomen: Patient does have epigastric abdominal pain. Nausea. No episodes of vomiting. No diarrhea.. Cardiovascular: Patient denies any chest pain or short of breath no palpitations. Respiratory: patient denied any cough is from production. No shortness of breath Neurologic: Patient denied any numbness or tingling headache. Musculoskeletal: Patient denies any complaints of joint swelling or deformity. Skin: Negative Psychiatric: Negative Endocrine: No heat or cold intolerance. No recent weight gain. Genitourinary: No dysuria or hematuria. All other 14 point ROS negative except the above Past Medical History Past Medical History: Asthma, Hypertension, Neurologic Disorder, Renal Disease Additional Past Medical History / Comment(s): Pt recently admitted to [facility] on 07/25/20 with acute alcohol pancreatitis/alcohol abuse/leukocytosis. Other hx: ETOH with drawal with tremors/seizure, bronchitis, neuropathy R leg/R foot pain/limps, chronic low back pain/5 disc ruptured, 2017 pt had dialtysis for 3 months but states kidneys are working fine now, insomnia. History of Any Multi-Drug Resistant Organisms: None Reported Past Surgical History: No Surgical Hx Reported Additional Past Surgical History / Comment(s): Rhinoplasty, sinus scrapped, L lower eyelid laceration/repair, R 2nd toe metatarsopharangeal arthroplasty. Past Anesthesia/Blood Transfusion Reactions: No Reported Reaction Past Psychological History: Anxiety, Depression Smoking Status: Current every day smoker Past Alcohol Use History: None Reported Past Drug Use History: None Reported - Past Family History Mother Family Medical History: No Reported History Additional Family Medical History / Comment(s): Mother is healthy. Father Family Medical History: No Reported History Additional Family Medical History / Comment(s): Father is healthy Medications and Allergies Home Medications Medication Instructions Recorded Confirmed Type Lactulose 10 gm PO DAILY 03/09/21 03/29/21 History Furosemide [Lasix] 40 mg PO DAILY 30 Days #30 tab 03/15/21 03/29/21 Rx Pantoprazole [Protonix] 40 mg PO BID #30 tablet.dr 03/15/21 03/29/21 Rx Gabapentin [Neurontin] 300 mg PO BID 03/29/21 03/29/21 History Spironolactone [Aldactone] 100 mg PO DAILY 03/29/21 03/29/21 History Allergies Allergy/AdvReac Type Severity Reaction Status Date / Time No Known Allergies Allergy Verified 03/29/21 11:58 Physical Exam Vitals: Vital Signs Temp Pulse Pulse Resp BP BP Pulse Ox 03/29/21 14:55 97.5 F L 96 16 145/66 97 03/29/21 13:20 100 16 132/97 100 03/29/21 12:14 105 H 18 134/95 100 03/29/21 10:56 98.6 F 89 16 135/86 100 Intake and Output 03/29/21 03/29/21 03/29/21 06:59 14:59 22:59 Other: Weight 71.668 kg PHYSICAL EXAMINATION: Patient is lying in the bed comfortably, no acute distress, awake alert and oriented.. HEENT: Normocephalic. Neck is supple. Pupils reactive. Nostrils clear. Oral cavity is moist. Ears reveal no drainage. Neck reveals no JVD, carotid bruits, or thyromegaly. CHEST EXAMINATION: Trachea is central. Symmetrical expansion. Lung goodwin clear to auscultation and percussion. CARDIAC: Normal S1, S2 with no gallops. No murmurs ABDOMEN: Abdominal is soft distended encephalitis no guarding or rigidity. Mild epigastric tenderness.. Extremities: reveal no edema. No clubbing or cyanosis Neurologically awake, alert, oriented x3 with well-coordinated movements. No focal deficits noted Skin: No rash or skin lesions. Psychiatric: Coperative. Nonsuicidal Musculoskeletal: No joint swelling or deformity. Normal range of motion. Results CBC & Chem 7: 03/30/21 03:41 03/30/21 03:41 Labs: Abnormal Lab Results - Last 24 Hours (Table) 03/29/21 03/29/21 03/29/21 Range/Units 11:22 11:22 11:22 WBC 12.7 H (3.8-10.6) k/uL RBC 4.14 L (4.30-5.90) m/uL Hgb 10.8 L (13.0-17.5) gm/dL Hct 34.4 L (39.0-53.0) % Plt Count 703 H (150-450) k/uL Neutrophils # 8.7 H (1.3-7.7) k/uL Eosinophils # 1.6 H (0-0.7) k/uL BUN 22 H (9-20) mg/dL Glucose 150 H (74-99) mg/dL Plasma Lactic Acid Valentino (0.7-2.0) mmol/L Alkaline Phosphatase 171 H (38-126) U/L Amylase 2708 H* (30-110) U/L Lipase 3912 H (23-300) U/L Ur Specific [place] 1.036 H (1.001-1.035) Urine Protein 1+ H (Negative) Urine Ketones Trace H (Negative) Ur Leukocyte Esterase Trace H (Negative) Urine WBC 8 H (0-5) /hpf Hyaline Casts 42 H (0-2) /lpf Urine Mucus Moderate H (None) /hpf 03/29/21 Range/Units 11:22 WBC (3.8-10.6) k/uL RBC (4.30-5.90) m/uL Hgb (13.0-17.5) gm/dL Hct (39.0-53.0) % Plt Count (150-450) k/uL Neutrophils # (1.3-7.7) k/uL Eosinophils # (0-0.7) k/uL BUN (9-20) mg/dL Glucose (74-99) mg/dL Plasma Lactic Acid [place] 2.1 H* (0.7-2.0) mmol/L Alkaline Phosphatase (38-126) U/L Amylase (30-110) U/L Lipase (23-300) U/L Ur Specific [place] (1.001-1.035) Urine Protein (Negative) Urine Ketones (Negative) Ur Leukocyte Esterase (Negative) Urine WBC (0-5) /hpf Hyaline Casts (0-2) /lpf Urine Mucus (None) /hpf Thrombosis Risk Factor Assmnt - DVT/VTE Prophylaxis DVT/VTE Prophylaxis: Pharmacologic Prophylaxis ordered Assessment and Plan Assessment: Acute pancreatitis likely alcoholic pancreatitis Ascites Pancratic Pseudocyst Severe alcohol abuse Chronic low back pain Bilateral lower extremity peripheral neuropathy. Alcohol-related Hypertension DVT and GI prophylaxis Asthma stable Anxiety/depression Currently everyday smoker Plan: Patient will be continued on IV hydration and nothing by mouth. Continue with pain management with Dilaudid. GI and DVT prophylaxis. Follow-up CBC and amylase lipase level. Gastroenterology was consulted. Patient was counseled extensively for alcohol abstinence. Monitor for alcohol withdrawal symptoms. Time with Patient: Greater than 30
[2021-03-30 05:29] LABS: Basophils # (A) 0.1 k/uL (0-0.2); Basophils % (A) 1 %; Eosinophils # (A) 1.4 k/uL (0-0.7); Eosinophils % (A) 18 %; Hypochromasia Marked; Lymphocytes # (A) 1.8 k/uL (1.0-4.8); Lymphocytes % (A) 22 %; MCH 26.2 pg (25.0-35.0); MCHC 31.7 g/dL (31.0-37.0); MCV 82.6 fL (80.0-100.0); Mean Platelet Volume 6.4; Monocytes # (A) 0.5 k/uL (0-1.0); Monocytes % (A) 6 %; Neutrophils # (A) 4.2 k/uL (1.3-7.7); Neutrophils % (A) 52 %; Platelet Count 584 k/uL (150-450); RBC 3.27 m/uL (4.30-5.90); RDW 14.9 % (11.5-15.5); WBC 8.1 k/uL (3.8-10.6)
[2021-03-30] MEDS: HYDROmorphone 1 MG/ML 1 ML SYRINGE IVP PRN ×5 (06:33→19:19)
[2021-03-30 06:53] LABS: HGB 8.6 gm/dL (13.0-17.5)
[2021-03-30] MEDS: SODIUM CHLORIDE 0.9% 1,000 ML IV SCH ×3 (08:32→17:23)
[2021-03-30] MEDS: HYDROCORTISONE SUPPOSITORY 25 MG SUPP RECTAL SCH (09:26)
[2021-03-30] MEDS: LACTULOSE 20 GM/30 ML CUP PO SCH (09:26)
[2021-03-30] MEDS ORDERED: HYDROCORTISONE 2.5% RECTAL CREAM 30 GM TUBE RECTAL SCH (11:30)
[2021-03-30 12:16] LABS: Anion Gap 10.9 mmol/L (4.00-12.00); BUN/Creat Ratio 26.25 Ratio (12.00-20.00); Calcium 8.9 mg/dL (8.7-10.3); Carbon Dioxide 23.1 mmol/L (21.6-31.8); Non-African American GFR(CKD) 107.9 (60.0-200.0); Potassium 4.2 mmol/L (3.5-5.5)
[2021-03-30] MEDS ORDERED: HYDROcodone/APAP 5-325MG 1 EACH TAB PO PRN (13:25)
--- NOTE | 2021-03-30 15:35 | P.PN ---
Subjective Progress Note Date: 03/30/21 Patient is a 45-year-old male with a known history of hypertension, alcohol abuse and history of acute alcoholic pancreatitis, asthma, anxiety/depression currently everyday smoker presents to ER with complaints of abdominal distention and epigastric abdominal pain.He started having abdominal pain mainly in the epigastric region radiating to the left side of the abdomen associated with nausea and vomiting. patient is unable to take any oral intake and pain intensity at 9 out of 10 in severity. no complaints of chest pain or shortness breath. no fever no chills.Denies any leg swelling. patient had previous paracentesis.patient is supposed to follow-up with . Laboratory data showed WBC 12.7 hemoglobin 10.8 and platelets 703 Sodium 138 potassium 4.7 chloride 101 bicarb is 23 BUN 22 and creatinine 0.99 Lactic acid 2.1 Amylase 2708 and lipase 3912 03/30/2021 Patient is seen in follow-up continues to be an hold in the ER while awaiting a [facility] bed. Patient continues to have abdominal distention and discomfort although labs have improved and GI following closely. Patient was started on clear liquids and tolerating with no reports of nausea or vomiting noted. Patient continues to request IV pain medication and will add oral for breakthrough pain. Patient evaluated by GI and will undergo paracentesis for abdominal ascites with possible transfer for tertiary level treatment of care for possible pancreatic cyst drainage requiring advanced GI services. Case management is following and working on transfer an accepting facility. Initially [facility] was an option although is out of network for patient and [facility] is being considered. White blood count improved at 8.1, hemoglobin is 8.6 with no active bleeding noted. Sodium is 136 with a potassium of 4.2 current creatinine is 0.8. Amylase trending down at 1552 and lipase is 450. Interventional radiology was consulted for the paracentesis. Fluid analysis are ordered and pending. Review of systems: Constitutional: No reports of fatigue, fever, or chills Cardiovascular: No reports of chest pain or palpitations Respiratory: reports mild shortness of breath secondary to abdominal distention GI: No reports of nausea, vomiting, or diarrhea : No reports of dysuria or retention Neurovascular: No reports of weakness or numbness All medications have been reviewed Objective - Vital Signs Vital signs: Vital Signs Temp 98.4 F 03/30/21 08:32 Pulse 98 03/30/21 11:06 Resp 16 03/30/21 11:06 BP 117/91 03/30/21 11:06 Pulse Ox 97 03/30/21 11:06 Intake & Output 03/29/21 03/30/21 03/30/21 18:59 06:59 18:59 Weight 71.668 kg Other: # Voids 3 - Exam Patient is lying in the bed comfortably, no acute distress, awake alert and oriented.. HEENT: Normocephalic. Neck is supple. Pupils reactive. Nostrils clear. Oral cavity is moist. Ears reveal no drainage. Neck reveals no JVD, carotid bruits, or thyromegaly. CHEST EXAMINATION: Trachea is central. Symmetrical expansion. Lung goodwin clear to auscultation and percussion. CARDIAC: Normal S1, S2 with no gallops. No murmurs ABDOMEN: Abdominal is soft, distended encephalitis no guarding or rigidity. Mild epigastric tenderness.. Extremities: reveal no edema. No clubbing or cyanosis Neurologically awake, alert, oriented x3 with well-coordinated movements. No focal deficits noted Skin: No rash or skin lesions. Psychiatric: Cooperative. Non-suicidal Musculoskeletal: No joint swelling or deformity. Normal range of motion. - Labs CBC & Chem 7: 03/30/21 03:41 03/30/21 03:41 Labs: Abnormal Lab Results - Last 24 Hours (Table) 03/29/21 03/30/21 03/30/21 Range/Units 11:22 03:41 03:41 RBC 3.27 L (4.30-5.90) m/uL Hgb 8.6 L D (13.0-17.5) gm/dL Hct 27.0 L (39.0-53.0) % Plt Count 584 H (150-450) k/uL Eosinophils # 1.4 H (0-0.7) k/uL BUN/Creatinine Ratio 26.25 H (12.00-20.00) Ratio Amylase 1552 H* (23-121) U/L Lipase 450 H (14-60) U/L Ur Specific [place] 1.036 H (1.001-1.035) Urine Protein 1+ H (Negative) Urine Ketones Trace H (Negative) Ur Leukocyte Esterase Trace H (Negative) Urine WBC 8 H (0-5) /hpf Hyaline Casts 42 H (0-2) /lpf Urine Mucus Moderate H (None) /hpf Assessment and Plan Assessment: Acute pancreatitis likely alcoholic pancreatitis Severe alcohol abuse Chronic low back pain Bilateral lower extremity peripheral neuropathy. Alcohol-related Hypertension DVT and GI prophylaxis Asthma stable Anxiety/depression Currently everyday smoker Full code Plan: Patient will be continued on IV hydration and amylase and lipase are trending down and patient was started on clear liquids. GI following closely and plans are for interventional radiology consult to perform paracentesis for abdominal ascites. Patient continues to have severe pain requesting IV pain medications and will add [place] for breakthrough pain. Continue with pain management with Dilaudid. GI and DVT prophylaxis. Hemoglobin is 8.6 today from 10.8 yesterday with no active bleeding noted. Discussed with GI about possible drainage of the pancreatic cyst and will require tertiary treatment center for higher level of care and case management following working on accepting facility for transfer with possibility of [facility] as a choice as it is in network for him. We'll continue to monitor closely. Continue to monitor for any signs of alcohol withdrawal symptoms. Guarded prognosis.
--- NOTE | 2021-03-30 16:00 | P.PN ---
Subjective Progress Note Date: 03/30/21 Principal diagnosis: Abdominal pain, pancreatitis 45-year-old male with a past medical history of alcoholic pancreatitis in alcoholic cirrhosis of the liver with ascites presented to the hospital with increased abdominal pain. He recently moved from [place] where he was diagnosed with pancreatitis and cirrhosis of the liver. He has not followed up with anyone since his last hospitalization. During his last hospitalization he did undergo an EGD as well as a paracentesis. Today he has seen and examined lying in bed. States his pain is about the same. Denies any nausea or vomiting. He underwent a liver ultrasound yesterday showing pancreatic cyst which has increased in size is now measuring 9.9 x 4.8 x 5.2 cm. Also showing moderate amount of ascites. Today's labs are currently pending. Objective - Vital Signs Vital signs: Vital Signs Temp 98.4 F 03/30/21 08:32 Pulse 98 03/30/21 11:06 Resp 16 03/30/21 11:06 BP 117/91 03/30/21 11:06 Pulse Ox 97 03/30/21 11:06 Intake & Output 03/29/21 03/30/21 03/30/21 18:59 06:59 18:59 Weight 71.668 kg Other: # Voids 3 - Exam General appearance: The patient is alert, oriented, appears in no acute distress. HET: Head is normocephalic and atraumatic. Conjunctiva pink. Sclera anicteric. Neck: Supple without lymphadenopathy. Abdomen: Soft, left upper quadrant tenderness, mildly distended with bowel sounds. No guarding or rigidity. Extremities: Normal skin color and turgor. No pedal edema Skin: No rashes, no jaundice Neurological: No focal deficits. Alert and oriented 3. - Labs CBC & Chem 7: 03/30/21 03:41 03/30/21 03:41 Labs: Abnormal Lab Results - Last 24 Hours (Table) 03/29/21 03/29/21 03/29/21 Range/Units 11:22 11:22 11:22 WBC 12.7 H (3.8-10.6) k/uL RBC 4.14 L (4.30-5.90) m/uL Hgb 10.8 L (13.0-17.5) gm/dL Hct 34.4 L (39.0-53.0) % Plt Count 703 H (150-450) k/uL Neutrophils # 8.7 H (1.3-7.7) k/uL Eosinophils # 1.6 H (0-0.7) k/uL BUN 22 H (9-20) mg/dL Glucose 150 H (74-99) mg/dL Plasma Lactic Acid Valentino (0.7-2.0) mmol/L Alkaline Phosphatase 171 H (38-126) U/L Amylase 2708 H* (30-110) U/L Lipase 3912 H (23-300) U/L Ur Specific [place] 1.036 H (1.001-1.035) Urine Protein 1+ H (Negative) Urine Ketones Trace H (Negative) Ur Leukocyte Esterase Trace H (Negative) Urine WBC 8 H (0-5) /hpf Hyaline Casts 42 H (0-2) /lpf Urine Mucus Moderate H (None) /hpf 03/29/21 03/30/21 Range/Units 11:22 03:41 WBC (3.8-10.6) k/uL RBC 3.27 L (4.30-5.90) m/uL Hgb 8.6 L D (13.0-17.5) gm/dL Hct 27.0 L (39.0-53.0) % Plt Count 584 H (150-450) k/uL Neutrophils # (1.3-7.7) k/uL Eosinophils # 1.4 H (0-0.7) k/uL BUN (9-20) mg/dL Glucose (74-99) mg/dL Plasma Lactic Acid [place] 2.1 H* (0.7-2.0) mmol/L Alkaline Phosphatase (38-126) U/L Amylase (30-110) U/L Lipase (23-300) U/L Ur Specific [place] (1.001-1.035) Urine Protein (Negative) Urine Ketones (Negative) Ur Leukocyte Esterase (Negative) Urine WBC (0-5) /hpf Hyaline Casts (0-2) /lpf Urine Mucus (None) /hpf Assessment and Plan (1) Pancreatic cyst Narrative/Plan: Patient presented to the emergency department with severe epigastric pain for last several weeks duration which is progressively getting worse. Computed tomography scan of the abdomen done on March 13 did show evidence of pancreatic pseudocyst measuring 4 cm in size in the tail of the pancreas. He now presents with worsening symptoms and elevated amylase and lipase consistent with a flare up of chronic relapsing pancreatitis complicated by pseudocyst formation. A repeat ultrasound of the abdomen was done showing moderate amount of ascites, with a complex cystic area in the region of the pancreas now measuring 9.9 x 4.8 x 5.2 cm. Current Visit: Yes Status: Acute Code(s): K86.2 - CYST OF PANCREAS SNOMED Code(s): 24617195 (2) Acute on chronic pancreatitis Current Visit: Yes Status: Acute Code(s): K85.90 - ACUTE PANCREATITIS WITHOUT NECROSIS OR INFECTION, UNSP; K86.1 - OTHER CHRONIC PANCREATITIS SNOMED Code(s): 523670066 (3) Alcoholic cirrhosis of liver with ascites Narrative/Plan: Abdominal distention secondary to history of liver cirrhosis secondary to alcohol use with recurrent ascites. Last paracentesis was done during his last hospitalization approximately 2 weeks ago. Current Visit: Yes Status: Acute Code(s): K70.31 - ALCOHOLIC CIRRHOSIS OF LIVER WITH ASCITES SNOMED Code(s): 785777994 (4) Abdominal pain Current Visit: No Status: Acute Code(s): R10.9 - UNSPECIFIED ABDOMINAL PAIN SNOMED Code(s): 72030440 (5) History of alcohol abuse Narrative/Plan: Patient has a history of heavy alcohol abuse. Patient reports he quit drinking approximately 3 months ago. Current Visit: Yes Status: Acute Code(s): F10.11 - ALCOHOL ABUSE, IN REMISSION SNOMED Code(s): 408058067 (6) Thrombosed external hemorrhoid Current Visit: Yes Status: Acute Code(s): K64.5 - PERIANAL VENOUS THROMBOSIS SNOMED Code(s): 72771863 Plan: 1. Continue symptomatic and supportive care 2. Continue pain medications as needed 3. Continue antiemetics as needed 4. Patient may have clear liquid diet 5. Ultrasound reviewed showing increased size in pancreatic cyst. Recommend transfer to [facility] for possible EUS and drainage of pancreatic cyst 6. Anusol rectal suppositories at bedtime and hemorrhoid cream as needed 7. Paracentesis ordered with fluid studies 8. Recommend transfer to [facility] for further management of pancreatic pseudocyst. This was discussed with Dr. Silva from primary medicine team. Thank you for this consultation, we will continue to follow. Dr. Bibiana Lees I agree with the dictator's note, documented as a scribe by Deepa Peña.
[2021-03-30 20:12] VITALS: BP 142/87; PULSE 98; RESP 20; TEMP 98.1
[2021-03-30 20:40] LABS: Appearance,BF Hazy
[2021-03-30 20:41] LABS: Nucleated Cells, Body Fluid 162 /uL; RBC, Body Fluid 165 /uL
[2021-03-30 20:44] LABS: Mononuclear WBC,Body Fluid 73 %; Polynuclear WBC,Body Fluid 12 %; Total Cells Counted,Body Fluid 100
[2021-03-31 00:56] LABS: Total Protein, Body Fluid 3130 mg/dL
[2021-03-31 01:35] LABS: Albumin, Fluid Source Paracentesis Fluid
--- NOTE | 2021-03-31 09:14 | US ---
Ultrasound-guided paracentesis. DATE OF EXAM: 03/30/2021 CLINICAL HISTORY: Ascites The procedure was discussed with the patient. The risks, complications, benefits, and alternatives we re discussed and any questions were answered. Informed consent was obtained. The patient was placed s upine on the ultrasound table and prepped and draped in the usual sterile fashion. All elements of maximal barrier technique were utilized. Under ultrasound guidance, access into the right lower quadrant was obtained, via the paracentesis catheter system and direct ultrasound guidanc e. Approximately 2.2 liters of straw-colored fluid was removed. The patient was stable throughout the pr ocedure and remained stable upon discharge from Department of Radiology. IMPRESSION: Successful paracentesis under ultrasound guidance.
--- NOTE | 2021-04-17 22:36 | P.DS ---
Providers Date of admission: 03/29/21 12:50 Expected date of discharge: 04/30/21 Attending physician: Jose David Silva MD Consults: 03/29/21 12:38 Consult Physician Urgent Consulting Provider: Gabriella Lees Consult Reason/Comments: Pancreatitis Do you want consulting provider notified?: Yes Primary care physician: [place] [facility] Course: Discharge diagnosis Acute pancreatitis likely alcoholic pancreatitis Pancreatic pseudocyst at the tail of the pancreas with enlarging in size. Mass cannot be excluded. Severe alcohol abuse Chronic low back pain Bilateral lower extremity peripheral neuropathy. Alcohol-related Hypertension DVT and GI prophylaxis Asthma stable Anxiety/depression Currently everyday smoker Full code Hospital course Patient is a 45-year-old male with a known history of hypertension, alcohol abuse and history of acute alcoholic pancreatitis, asthma, anxiety/depression currently everyday smoker presents to ER with complaints of abdominal distention and epigastric abdominal pain.He started having abdominal pain mainly in the epigastric region radiating to the left side of the abdomen associated with nausea and vomiting. patient is unable to take any oral intake and pain intensity at 9 out of 10 in severity. no complaints of chest pain or shortness breath. no fever no chills.Denies any leg swelling. patient had previous paracentesis.patient is supposed to follow-up with . Laboratory data showed WBC 12.7 hemoglobin 10.8 and platelets 703 Sodium 138 potassium 4.7 chloride 101 bicarb is 23 BUN 22 and creatinine 0.99 Lactic acid 2.1 Amylase 2708 and lipase 3912 03/30/2021 Patient is seen in follow-up continues to be an hold in the ER while awaiting a Med[facility] bed. Patient continues to have abdominal distention and discomfort although labs have improved and GI following closely. Patient was started on clear liquids and tolerating with no reports of nausea or vomiting noted. Patient continues to request IV pain medication and will add oral for breakthrough pain. Patient evaluated by GI and will undergo paracentesis for abdominal ascites with possible transfer for tertiary level treatment of care for possible pancreatic cyst drainage requiring advanced GI services. Case management is following and working on transfer an accepting facility. Initially [facility] was an option although is out of network for patient and [facility] is being considered. White blood count improved at 8.1, hemoglobin is 8.6 with no active bleeding noted. Sodium is 136 with a potassium of 4.2 current creatinine is 0.8. Amylase trending down at 1552 and lipase is 450. Interventional radiology was consulted for the paracentesis. Fluid analysis are ordered and pending. Due to recurrent ascites and also cystic mass in the tail of the pancreas which is increased in size compared to old exam. And is significantly different than the old exam. Pancreatic abnormalities correlate to pancreatitis and pseudocyst formation. Tumor is not entirely excluded. Patient was seen by gastroenterology and recommended to transfer [facility] for further evaluation. Discussed with the transfer team and accepting physician and signout was given verbally. Patient was transferred to tertiary care facility for further management. Hemodynamically stable for transfer. PHYSICAL EXAMINATION: Patient is lying in the bed comfortably, no acute distress, awake alert and oriented.. HEENT: Normocephalic. Neck is supple. Pupils reactive. Nostrils clear. Oral cavity is moist. Ears reveal no drainage. Neck reveals no JVD, carotid bruits, or thyromegaly. CHEST EXAMINATION: Trachea is central. Symmetrical expansion. Lung goodwin clear to auscultation and percussion. CARDIAC: Normal S1, S2 with no gallops. No murmurs ABDOMEN: Abdominal is soft, distended with Ascites. no guarding or rigidity. Mild epigastric tenderness.. Extremities: reveal no edema. No clubbing or cyanosis Neurologically awake, alert, oriented x3 with well-coordinated movements. No focal deficits noted Skin: No rash or skin lesions. Psychiatric: Cooperative. Non-suicidal Musculoskeletal: No joint swelling or deformity. Normal range of motion. Discharge vitals reviewed. Patient Condition at Discharge: Fair Plan - Discharge Summary New Discharge Prescriptions: No Action Furosemide [Lasix] 40 mg PO DAILY 30 Days #30 tab Pantoprazole [Protonix] 40 mg PO BID #30 tablet. Gabapentin [Neurontin] 300 mg PO BID Lactulose 10 gm PO DAILY Spironolactone [Aldactone] 100 mg PO DAILY Discharge Medication List Lactulose 10 gm PO DAILY 03/09/21 [History] Furosemide [Lasix] 40 mg PO DAILY 30 Days #30 tab 03/15/21 [Rx] Pantoprazole [Protonix] 40 mg PO BID #30 tablet. 03/15/21 [Rx] Gabapentin [Neurontin] 300 mg PO BID 03/29/21 [History] Spironolactone [Aldactone] 100 mg PO DAILY 03/29/21 [History] Follow up Appointment(s)/Referral(s): Silvia Rios MD [Primary Care Provider] - 1-2 days Discharge Disposition: OTHER INSTITUTION NOT DEFINED
== END 2021-03-30 20:39 | disposition other institution (70) | DRG 439 ==
LOC: EC 10:55 → 5NMEDONC 12:50
PROVIDERS: ADMIT Internal Medicine; ATTEND Internal Medicine
PROC: 0W9G3ZX Drainage of Peritoneal Cavity, Percutaneous Approach, Diagnostic (ICD-10-PCS; principal; 2021-03-30)
DX: K86.0 Alcohol-induced chronic pancreatitis (principal); K76.6 Portal hypertension; K86.3 Pseudocyst of pancreas; K86.2 Cyst of pancreas; I10 Essential (primary) hypertension; F17.200 Nicotine dependence, unspecified, uncomplicated; F32.9 Major depressive disorder, single episode, unspecified; F41.9 Anxiety disorder, unspecified; G89.29 Other chronic pain; F10.10 Alcohol abuse, uncomplicated; G62.9 Polyneuropathy, unspecified; J45.909 Unspecified asthma, uncomplicated; K64.5 Perianal venous thrombosis; K70.31 Alcoholic cirrhosis of liver with ascites; Z79.899 Other long term (current) drug therapy; M54.5 Low back pain
CPT/HCPCS: 36415; 49083; 76705; 80048; 80053; 81001; 82042; 82150; 83605; 83690; 84157; 85025; 85610; 85730; 87070; 87075; 87205; 87635; 88108; 88305; 89050; 96361; 96374; 96375; 99284

== ENCOUNTER 2021-05-16 10:32 | Emergency (ER) | payer OTHER ==
[2021-05-16 11:00] VITALS: RESP 16; TEMP 98.9
[2021-05-16] MEDS ORDERED: MORPHINE SULFATE 4 MG/ML SYRINGE IV STA (11:43)
[2021-05-16] MEDS ORDERED: SODIUM CHLORIDE 0.9% 1,000 ML IV STA (11:43)
[2021-05-16 12:20] LABS: Anisocytosis Slight; Basophils % (A) 0 %; Eosinophils # (A) 0.7 k/uL (0-0.7); Eosinophils % (A) 9 %; HCT 32.8 % (39.0-53.0); HGB 10.6 gm/dL (13.0-17.5); Lymphocytes # (A) 1.8 k/uL (1.0-4.8); Lymphocytes % (A) 21 %; MCH 27.4 pg (25.0-35.0); MCHC 32.2 g/dL (31.0-37.0); Mean Platelet Volume 7.3; Monocytes # (A) 0.6 k/uL (0-1.0); Monocytes % (A) 7 %; Neutrophils # (A) 5.1 k/uL (1.3-7.7); Neutrophils % (A) 61 %; Platelet Count 270 k/uL (150-450); RBC 3.86 m/uL (4.30-5.90); RDW 18.8 % (11.5-15.5); WBC 8.4 k/uL (3.8-10.6)
[2021-05-16 12:22] LABS: ALT 17 U/L (4-49); AST 23 U/L (17-59); African American GFR (CKD) >90 (>60 ml/min/1.73 sqM); Albumin 4.1 g/dL (3.5-5.0); Alkaline Phosphatase 80 U/L (38-126); Amylase 116 U/L (30-110); Anion Gap 8 mmol/L; Blood Urea Nitrogen 15 mg/dL (9-20); Calcium 9.9 mg/dL (8.4-10.2); Carbon Dioxide 24 mmol/L (22-30); Chloride 109 mmol/L (98-107); Glucose 76 mg/dL (74-99); Lipase 183 U/L (23-300); Non-African American GFR(CKD) >90 (>60 ml/min/1.73 sqM); Potassium 4.4 mmol/L (3.5-5.1); Sodium 141 mmol/L (137-145); Total Bilirubin 0.3 mg/dL (0.2-1.3); Total Protein 7.3 g/dL (6.3-8.2)
[2021-05-16 12:23] LABS: Appearance,Urine Clear (Clear); Bilirubin,Urine Negative (Negative); Blood,Urine Negative (Negative); Color,Urine Colorless; Glucose,Urine (UA) Negative (Negative); Ketones,Urine Negative (Negative); Leukocyte Esterase,Urine Negative (Negative); Nitrite,Urine Negative (Negative); Protein,Urine Negative (Negative); Specific Gravity,Urine 1.003 (1.001-1.035); Urobilinogen,Urine <2.0 mg/dL (<2.0)
--- NOTE | 2021-05-16 12:23 | XR ---
EXAMINATION TYPE: XR KUB DATE OF EXAM: 05/16/2021 COMPARISON: NONE HISTORY: Pain TECHNIQUE: Single supine KUB image of the abdomen is obtained FINDINGS: Small bowel demonstrates no evidence for dilatation. A few scattered air-fluid level seen may reflect mild ileus. Gas and fecal material is seen in non-distended colon. No convincing evidence for pneumoperitoneum. No unusual calcifications. The lung bases are clear. The osseous structures are intact. IMPRESSION: 1. Overall nonobstructive bowel gas pattern. Correlate for mild ileus.
--- NOTE | 2021-05-16 12:43 | ED ---
Abdominal Pain HPI - General Chief Complaint: Abdominal Pain Stated Complaint: abd pain Time Seen by Provider: 05/16/21 11:02 Source: patient Mode of arrival: ambulatory Limitations: no limitations - History of Present Illness Initial Comments: Patient is a 45-year-old male presenting to the emergency department for 2 separate issues. Patient states he has a right inguinal hernia that happened about a week ago and has been giving him some pain off and on over the past week. He states it protrudes out when he sits and has a bowel movement or when he is walking around at different times. He states it started after lifting 2 heavy objects about a week ago. He has no history of hernias. He states it does reduce by itself or when he pushes on it. He has been applying ice to the area which also helps. Patient is also complaining of a flareup of his chronic pancreatitis. He sees a specialist at [facility] for this. 4 days ago, he had his pancreatic stent removed as an outpatient surgery, he was told that he is free to eat whatever he likes. Patient states he has been going overboard with food over the past 3 days and feeling nauseous, increased pain and is wondering if he is having another pancreatic flareup. He denies any fevers or chills, no chest pain or shortness of breath. He denies any nausea or vomiting, he has been having some mild diarrhea. He is complaining pain epigastric and the left sided region, rates it 6/10. He does have a video follow-up with his surgeon as soon, he's been trying to make the appointment. He denies any further complaints at this time. Upon arrival to the ER, his vital signs are stable. - Related Data Home Medications Medication Instructions Recorded Confirmed Lactulose 10 gm PO BID 03/09/21 05/16/21 Albuterol Sulfate [Proair Hfa] 2 puff INHALATION RT-DAILY 05/16/21 05/16/21 Apixaban [Eliquis] 5 mg PO BID 05/16/21 05/16/21 Cyclobenzaprine [Flexeril] 10 mg PO HS 05/16/21 05/16/21 Fluticasone Nasal [place] [Flonase 1 spr EA NOSTRIL DAILY 05/16/21 05/16/21 Nasal [place]] Gabapentin 800 mg PO TID 05/16/21 05/16/21 Ibuprofen [Motrin] 800 mg PO TID PRN 05/16/21 05/16/21 Omeprazole 20 mg PO DAILY 05/16/21 05/16/21 Allergies Allergy/AdvReac Type Severity Reaction Status Date / Time No Known Allergies Allergy Verified 05/16/21 12:52 Review of Systems ROS Statement: Those systems with pertinent positive or pertinent negative responses have been documented in the HPI. ROS Other: All systems not noted in ROS Statement are negative. Past Medical History Past Medical History: Asthma, Hypertension, Neurologic Disorder, Renal Disease Additional Past Medical History / Comment(s): Pt recently admitted to [facility] on 07/25/20 with acute alcohol pancreatitis/alcohol abuse/leukocytosis. Other hx: ETOH with drawal with tremors/seizure, bronchitis, neuropathy R leg/R foot pain/limps, chronic low back pain/5 disc ruptured, 2016 pt had dialtysis for 3 months but states kidneys are working fine now, insomnia. History of Any Multi-Drug Resistant Organisms: None Reported Past Surgical History: No Surgical Hx Reported Additional Past Surgical History / Comment(s): Rhinoplasty, sinus scrapped, L lower eyelid laceration/repair, R 2nd toe metatarsopharangeal arthroplasty. Past Anesthesia/Blood Transfusion Reactions: No Reported Reaction Past Psychological History: Anxiety, Depression Smoking Status: Current every day smoker Past Alcohol Use History: None Reported Past Drug Use History: None Reported - Past Family History Mother Family Medical History: No Reported History Additional Family Medical History / Comment(s): Mother is healthy. Father Family Medical History: No Reported History Additional Family Medical History / Comment(s): Father is healthy General Exam - General Exam Comments Initial Comments: GENERAL: Patient is well-developed and well-nourished. Patient is nontoxic and in no acute distress. HEAD: Atraumatic, normocephalic. EYES: Pupils equal round and reactive to light, extraocular movements intact, sclera anicteric, conjunctiva are normal. Eyelids were unremarkable. ENT: TMs normal, nares patent, oropharynx clear without exudates. Moist mucous membranes. NECK: Normal range of motion, supple without lymphadenopathy or JVD. LUNGS: Unlabored respirations. Breath sounds clear to auscultation bilaterally and equal. No wheezes rales or rhonchi. HEART: Regular rate and rhythm without murmurs, rubs or gallops. ABDOMEN: Soft, mildly tender in the epigastric region, also has a reducible small right inguinal hernia, normoactive bowel sounds. No guarding, no rebound. No masses appreciated. : Deferred MUSCULOSKELETAL: Normal extremities with adequate strength and normal range of motion, no pitting or edema. No clubbing or cyanosis. NEUROLOGICAL: Patient is alert and oriented x 3. Motor and sensory are also intact. Cranial nerves II through XII grossly intact. Symmetrical smile. Normal speech, normal gait. PSYCH: Normal mood, normal affect. SKIN: Warm, Dry, normal turgor, no rashes or lesions noted. Limitations: no limitations Course Vital Signs 05/16/21 05/16/21 10:55 14:05 Temperature 98.9 F Pulse Rate 86 80 Respiratory 16 16 Rate Blood Pressure 129/78 115/78 O2 Sat by Pulse 100 100 Oximetry Medical Decision Making - Medical Decision Making Patient is a 45-year-old male here with 2 separate issues. He's has a small right reducible inguinal hernia for the past week after lifting 2 heavy objects. Again this is reducible. Patient is also concerned of chronic pancreatic flareup. He recently had a pancreatic stent removed at [facility] 3 days ago. He has been eating a lot over the past few days and thinks he might overdone it. Denies any fevers or chills, no chest pain or shortness of breath. No nausea or vomiting. Some mild diarrhea. Labs today are within normal limits including a stable hemoglobin, normal white count. His lipase today is 183, kidney function is stable, urinalysis shows no signs of infection. KUB shows an overall nonspecific bowel gas pattern, correlate for mild ileus. She was given fluids, pain control has been resting completely. I discussed these findings with him. I a feeling like he could've overdone it over eating this weekend. I recommended a liquid diet over the next 24 hours and slowly increase his fluid intake as tolerated. I will give him surgical referral for his hernia. He is to follow-up with his doctors at [facility] regarding the increased and epigastric pain. He is agreeable to this plan of care and he is stable for discharge. Return parameters were discussed with him and he verbalized understanding. Case discussed with Dr. Harper. - Lab Data Result diagrams: 05/16/21 11:45 05/16/21 11:45 Lab Results 05/16/21 05/16/21 05/16/21 Range/Units 11:45 11:45 11:45 WBC 8.4 (3.8-10.6) k/uL RBC 3.86 L (4.30-5.90) m/uL Hgb 10.6 L (13.0-17.5) gm/dL Hct 32.8 L (39.0-53.0) % MCV 85.0 (80.0-100.0) fL MCH 27.4 (25.0-35.0) pg MCHC 32.2 (31.0-37.0) g/dL RDW 18.8 H (11.5-15.5) % Plt Count 270 (150-450) k/uL MPV 7.3 Neutrophils % 61 % Lymphocytes % 21 % Monocytes % 7 % Eosinophils % 9 % Basophils % 0 % Neutrophils # 5.1 (1.3-7.7) k/uL Lymphocytes # 1.8 (1.0-4.8) k/uL Monocytes # 0.6 (0-1.0) k/uL Eosinophils # 0.7 (0-0.7) k/uL Basophils # 0.0 (0-0.2) k/uL Anisocytosis Slight PT 9.8 (9.0-12.0) sec INR 0.9 (<1.2) APTT 25.7 (22.0-30.0) sec Sodium (137-145) mmol/L Potassium (3.5-5.1) mmol/L Chloride (98-107) mmol/L Carbon Dioxide (22-30) mmol/L Anion Gap mmol/L BUN (9-20) mg/dL Creatinine (0.66-1.25) mg/dL Est GFR (CKD-EPI)AfAm (>60 ml/min/1.73 sqM) Est GFR (CKD-EPI)NonAf (>60 ml/min/1.73 sqM) Glucose (74-99) mg/dL Plasma Lactic Acid Valentino (0.7-2.0) mmol/L Calcium (8.4-10.2) mg/dL Total Bilirubin (0.2-1.3) mg/dL AST (17-59) U/L ALT (4-49) U/L Alkaline Phosphatase (38-126) U/L Total Protein (6.3-8.2) g/dL Albumin (3.5-5.0) g/dL Amylase (30-110) U/L Lipase (23-300) U/L Urine Color Colorless Urine Appearance Clear (Clear) Urine pH 6.0 (5.0-8.0) Ur Specific [place] 1.003 (1.001-1.035) Urine Protein Negative (Negative) Urine Glucose (UA) Negative (Negative) Urine Ketones Negative (Negative) Urine Blood Negative (Negative) Urine Nitrite Negative (Negative) Urine Bilirubin Negative (Negative) Urine Urobilinogen <2.0 (<2.0) mg/dL Ur Leukocyte Esterase Negative (Negative) 05/16/21 05/16/21 Range/Units 11:45 11:45 WBC (3.8-10.6) k/uL RBC (4.30-5.90) m/uL Hgb (13.0-17.5) gm/dL Hct (39.0-53.0) % MCV (80.0-100.0) fL MCH (25.0-35.0) pg MCHC (31.0-37.0) g/dL RDW (11.5-15.5) % Plt Count (150-450) k/uL MPV Neutrophils % % Lymphocytes % % Monocytes % % Eosinophils % % Basophils % % Neutrophils # (1.3-7.7) k/uL Lymphocytes # (1.0-4.8) k/uL Monocytes # (0-1.0) k/uL Eosinophils # (0-0.7) k/uL Basophils # (0-0.2) k/uL Anisocytosis PT (9.0-12.0) sec INR (<1.2) APTT (22.0-30.0) sec Sodium 141 (137-145) mmol/L Potassium 4.4 (3.5-5.1) mmol/L Chloride 109 H (98-107) mmol/L Carbon Dioxide 24 (22-30) mmol/L Anion Gap 8 mmol/L BUN 15 (9-20) mg/dL Creatinine 0.69 (0.66-1.25) mg/dL Est GFR (CKD-EPI)AfAm >90 (>60 ml/min/1.73 sqM) Est GFR (CKD-EPI)NonAf >90 (>60 ml/min/1.73 sqM) Glucose 76 (74-99) mg/dL Plasma Lactic Acid Valentino 0.7 (0.7-2.0) mmol/L Calcium 9.9 (8.4-10.2) mg/dL Total Bilirubin 0.3 (0.2-1.3) mg/dL AST 23 (17-59) U/L ALT 17 (4-49) U/L Alkaline Phosphatase 80 (38-126) U/L Total Protein 7.3 (6.3-8.2) g/dL Albumin 4.1 (3.5-5.0) g/dL Amylase 116 H (30-110) U/L Lipase 183 (23-300) U/L Urine Color Urine Appearance (Clear) Urine pH (5.0-8.0) Ur Specific [place] (1.001-1.035) Urine Protein (Negative) Urine Glucose (UA) (Negative) Urine Ketones (Negative) Urine Blood (Negative) Urine Nitrite (Negative) Urine Bilirubin (Negative) Urine Urobilinogen (<2.0) mg/dL Ur Leukocyte Esterase (Negative) Disposition Clinical Impression: Abdominal pain, Right inguinal hernia Disposition: HOME SELF-CARE Condition: Stable Instructions (If sedation given, give patient instructions): Inguinal Hernia (ED) Additional Instructions: Please return to the Emergency Department if symptoms worsen or any other concerns. Follow-up with surgeon for further treatment and assessment of your hernia. Continued to increase your fluid intake, increase your diet as tolerated. Please follow-up with your doctor regarding chronic pancreatitis. Is patient prescribed a controlled substance at d/c from ED?: No Referrals: Silvia Rios MD [Primary Care Provider] - 1-2 days Bear Figueroa MD [STAFF PHYSICIAN] - 1-2 days Time of Disposition: 14:06
[2021-05-16 13:05] LABS: INR 0.9 (<1.2); Partial Thromboplastin Time 25.7 sec (22.0-30.0); Prothrombin Time 9.8 sec (9.0-12.0)
[2021-05-16] MEDS ORDERED: MORPHINE SULFATE 2 MG/ML SYRINGE IVP ONE (13:45)
[2021-05-16 14:05] VITALS: BP 115/78; PULSE 80
[2021-05-16] MEDS ORDERED: traMADol 50 MG STARTER PACK 3 TAB BTL PO STA (14:05)
== END 2021-05-16 14:10 | disposition home or self-care (01) ==
LOC: EC 10:32
DX: R10.13 Epigastric pain (principal); K40.90 Unilateral inguinal hernia, without obstruction or gangrene, not specified as recurrent; R11.0 Nausea; R19.7 Diarrhea, unspecified; G40.909 Epilepsy, unspecified, not intractable, without status epilepticus; J45.909 Unspecified asthma, uncomplicated; I12.9 Hypertensive chronic kidney disease with stage 1 through stage 4 chronic kidney disease, or unspecified chronic kidney disease; N18.9 Chronic kidney disease, unspecified; F17.200 Nicotine dependence, unspecified, uncomplicated; Z79.51 Long term (current) use of inhaled steroids; Z79.899 Other long term (current) drug therapy
CPT/HCPCS: 99284; 96374; 96376; 96361; 36415; 80053; 82150; 83605; 83690; 85025; 85610; 85730; 81003; 74018; J2270 ×2

== ENCOUNTER → 2021-05-26 | Outpatient (CLI) | payer OTHER ==
[2021-05-26 19:59] LABS: HCT 30.5 % (39.6-50.0); HGB 9.4 g/dL (13.0-17.0); MCHC 30.8 g/dL (32.0-37.0); MCV 84.3 fL (80.0-97.0); Mean Platelet Volume 10.6 fL (9.5-12.2); Platelet Count 218 X 10*3/uL (140-440); RBC 3.62 X 10*6/uL (4.40-5.60); RDW 19.8 % (11.5-14.5); WBC 7.31 X 10*3/uL (4.50-10.00)
[2021-05-26 21:29] LABS: Basophils # (A) 0.04 X 10*3/uL (0.00-0.10); Basophils % (A) 0.5 %; Crenated RBC 2+; Eosinophils # (A) 0.35 X 10*3/uL (0.04-0.35); Eosinophils % (A) 4.8 %; Lymphocytes % (A) 24.6 %; Monocytes % (A) 12.3 %; Neutrophils # (A) 4.19 X 10*3/uL (1.80-7.70); Neutrophils % (A) 57.4 %
== END | disposition home or self-care (01) ==
LOC: LABWHC1 13:50
PROVIDERS: ATTEND Surgery
DX: K40.90 Unilateral inguinal hernia, without obstruction or gangrene, not specified as recurrent (principal)
CPT/HCPCS: 36415; 85025

== ENCOUNTER 2021-06-07 05:50 | Day surgery (SDC) | payer OTHER ==
[2021-06-02 11:27] VITALS: BMI 22.4
[~2021-06-07 05:50] MED LIST changes: +ACETAMINOPHEN TAB 500 MG TAB PO PRN; +DEXAMETHASONE SOD PHOSPHATE 4 MG/ML 1 ML VIAL IV ONE; +HEPARIN SODIUM,PORCINE/PF 5,000 UNIT/0.5 ML SYRINGE SQ PRN; +LACTATED RINGERS 1,000 ML IV SCH; +ONDANSETRON 4 MG/2 ML VIAL IVP ONE; -THIAMINE 100 MG TAB PO SCH
[2021-06-07 06:40] LABS: Glucose,Whole Blood 100 mg/dL (75-99)
[2021-06-07] MEDS ORDERED: MIDAZOLAM 2 MG/2 ML VIAL IVP ONE (07:22)
[2021-06-07] MEDS ORDERED: SODIUM CHLORIDE 0.9% (PF) 10 ML VIAL ONE (07:54)
[2021-06-07] MEDS ORDERED: SUCCINYLCHOLINE CHLORIDE 100 MG/5 ML SYR IV ONE (07:54)
[2021-06-07] MEDS ORDERED: KETOROLAC 15 MG/ML 1 ML VIAL ONE (07:54)
[2021-06-07] MEDS ORDERED: LIDOCAINE 1% INJ 10MG/ML (20 ML MDV) ONE (07:54)
[2021-06-07] MEDS ORDERED: MIDAZOLAM 2 MG/2 ML VIAL ONE (07:54)
[2021-06-07] MEDS ORDERED: PROPOFOL 10 MG/ML 20 ML VIAL IV ONE (07:54)
[2021-06-07] MEDS ORDERED: fentaNYL (PF) 50 MCG/ML 2 ML AMP ONE (07:54)
[2021-06-07] MEDS ORDERED: GLYCOPYRROLATE 0.2 MG/ML 2 ML VIAL ONE (07:54)
[2021-06-07] MEDS ORDERED: NEOSTIGMINE 1 MG/ML 10 ML VIAL ONE (07:54)
[2021-06-07] MEDS ORDERED: ROPIVACAINE 5 MG/ML 30 ML VIAL ONE (07:54)
[2021-06-07] MEDS ORDERED: HYDROmorphone (PF) 1 MG/ML ONE (07:54)
[2021-06-07] MEDS ORDERED: KETAMINE 10 MG/ML 20 ML VIAL ONE (07:54)
[2021-06-07] MEDS ORDERED: ROCURONIUM 10 MG/ML (5 ML VIAL) IV ONE (07:54)
[2021-06-07] MEDS ORDERED: BUPIVACAINE (PF) 0.25% 30 ML VIAL SQ ONE (08:26)
[2021-06-07] MEDS ORDERED: LACTATED RINGERS 1,000 ML IV ONE (09:11)
--- NOTE | 2021-06-07 09:14 | P.GSHP ---
History of Present Illness H&P Date: 06/07/21 Chief Complaint: Right inguinal hernia Is a 45-year-old male who presents today for laparoscopic robotic. Right inguinal hernia. Patient developed tender masses right groin. Past Medical History Past Medical History: Asthma, GERD/Reflux, Hypertension, Neurologic Disorder, Renal Disease Additional Past Medical History / Comment(s): ETOH with drawal with tremors/seizure, bronchitis, neuropathy R leg/R foot pain/limps, chronic low back pain/5 disc ruptured, 2017 pt had dialysis for 3 months but states kidneys are working fine now, insomnia. History of Any Multi-Drug Resistant Organisms: None Reported Past Surgical History: Orthopedic Surgery Additional Past Surgical History / Comment(s): Rhinoplasty, sinus scrapped, L lower eyelid laceration/repair, R 2nd toe metatarsopharangeal arthroplasty. PANCREATIC STENT INSERTION AND REMOVAL Past Anesthesia/Blood Transfusion Reactions: No Reported Reaction Smoking Status: Current every day smoker - Past Family History Mother Family Medical History: No Reported History Additional Family Medical History / Comment(s): Mother is healthy. Father Family Medical History: No Reported History Additional Family Medical History / Comment(s): Father is healthy Medications and Allergies Home Medications Medication Instructions Recorded Confirmed Type Lactulose 10 gm PO BID 03/09/21 06/07/21 History Albuterol Sulfate [Proair Hfa] 2 puff INHALATION RT-DAILY 05/16/21 06/07/21 History Apixaban [Eliquis] 5 mg PO BID 05/16/21 06/07/21 History Cyclobenzaprine [Flexeril] 10 mg PO HS 05/16/21 06/07/21 History Fluticasone Nasal [place] [Flonase 1 spr EA NOSTRIL DAILY 05/16/21 06/07/21 History Nasal [place]] Gabapentin 800 mg PO TID 05/16/21 06/07/21 History Ibuprofen [Motrin] 800 mg PO TID PRN 05/16/21 06/07/21 History Omeprazole 20 mg PO DAILY 05/16/21 06/07/21 History traMADol HCL [Ultram] 50 mg PO Q6HR PRN 06/02/21 06/07/21 History Allergies Allergy/AdvReac Type Severity Reaction Status Date / Time No Known Allergies Allergy Verified 06/07/21 06:23 Surgical - Exam Vital Signs Temp Pulse Resp BP Pulse Ox 97.6 F 62 18 113/58 100 06/07/21 06:27 06/07/21 06:27 06/07/21 06:27 06/07/21 06:27 06/07/21 06:27 - General well developed, well nourished, no distress - Eyes PERRL - ENT normal pinna - Neck no masses - Respiratory normal expansion - Cardiovascular Rhythm: regular - Abdomen Abdomen: soft, non tender Hernia: inguinal (Right inguinal hernia) Results - Labs Abnormal Lab Results - Last 24 Hours (Table) 06/07/21 Range/Units 06:35 POC Glucose (mg/dL) 100 H (75-99) mg/dL Assessment and Plan Assessment: Right inguinal hernia. We'll perform laparoscopic robotic-assisted repair.
--- NOTE | 2021-06-07 09:16 | P.OP ---
Date of Procedure: 06/07/21 Preoperative Diagnosis: Right inguinal hernia Postoperative Diagnosis: Peritoneal mass biopsy pending Bilateral inguinal hernia Bilateral cord lipoma Procedure(s) Performed: Perineal biopsy Laparoscopic robotic Bilateral hernia Excision of bilateral cord lipoma Anesthesia: YOVANA Surgeon: eBar Figueroa Estimated Blood Loss (ml): 10 Pathology: other (Peritoneal mass, bilateral cord lipoma) Condition: stable Disposition: PACU Description of Procedure: The patient's placed on the operating table in the supine position. The patient received general anesthesia. The patient's abdomen was prepped and draped in usual sterile fashion. The skin was anesthetized 1% local Xylocaine at the incision sites. Using an 11 blade a skin incision was made at the umbilicus. The fascia was grasped with a Perry and then the peritoneal cavity was entered with the Veress needle. Position of the Veress needle was confirmed with a positive drop test. After adequate insufflation a 5 mm trocar was placed into the peritoneal cavity. The Laparoscope was placed the peritoneal cavity. And a robotic 8 mm trocar was placed in the right lateral position and then another 8 mm robotic trochars placed in the left lateral position. The original 5 mm trocar was exchanged for a 12 mm trocar. The patient was placed in reverse Trendelenburg and then the patient was docked to the robot. The patient appeared to have some sort of inflammatory reaction within the peritoneal cavity. There were some little white nodules throughout the peritoneal cavity. A biopsy the peritoneal nodule was performed. This was sent to pathology. There was also some ascites within the peritoneal cavity. Next the peritoneum over top of the right inguinal hernia was incised and then using blunt and sharp dissection and electrocautery the hernia sac was dissected free from the floor of the inguinal canal. The cord lipoma was dissected free so pathology The hernia sac was completely reduced into the peritoneal cavity. And then using the Pro pilling machine operator mesh the hernia was repaired. The peritoneum was then sutured with 20V lock suture. Next the peritoneum over top of the left inguinal hernia was incised and then using blunt and sharp dissection and electrocautery the hernia sac was dissected free from the floor of the inguinal canal. The cord lipoma was dissected free to pathology The hernia sac was completely reduced into the peritoneal cavity. And then using the Pro pilling machine operator mesh the hernia was repaired. The peritoneum was then sutured with 20V lock suture. The patient was then undocked the robot. The needle was withdrawn from the peritoneal cavity. The umbilical trocar site was closed with 0 Ethibond suture. The skin was closed interrupted 3-0 Monocryl suture. Dermabond dressing was applied. Patient was sent to recovery in stable condition.
[2021-06-07] MEDS ORDERED: diphenhydrAMINE 50 MG/ML 1 ML VIAL ONE (09:20)
[2021-06-07] MEDS: HYDROmorphone 0.5 MG/0.5 ML SYRINGE IVP PRN ×4 (09:22→09:45)
[2021-06-07] MEDS ORDERED: diphenhydrAMINE 50 MG/ML 1 ML VIAL IVP ONE (09:22)
[2021-06-07 09:24] VITALS: TEMP 97
[2021-06-07] MEDS: MEPERIDINE 50 MG/ML SYRINGE IVP ONE ×2 (09:52→09:57)
[2021-06-07 10:10] VITALS: RESP 18
[2021-06-07 11:22] VITALS: BP 117/67; PULSE 78
--- NOTE | 2021-06-07 13:45 | P.ANPRN ---
Procedure Note - Anesthesia - Nerve Block Performed Bilateral iPack Single Time Out Performed: Yes Date of Procedure: 06/07/21 Procedure Start Time: : Procedure Stop Time: :33 Location of Patient: PreOp Indication: Acute Post-Operative Pain, Requested by Surgeon Sedation Type: Sedate with meaningful contact maintained Preparation: Sterile Prep Position: Prone Needle Types: Pajunk Needle Gauge: 21 Ultrasound used to visualize needle placement: Yes Ultrasound used to observe medication spread: Yes Blood Aspirated: No Pain Paresthesia on Injection Noted: No Resistance on Injection: Normal Image Stored and Saved: Yes Events: Uneventful and Well Tolerated (Ropivacaine 0.5% 15 mL plus normal saline 15 mL given bilaterally at L1)
== END 2021-06-07 11:32 | disposition home or self-care (01) ==
LOC: OR 05:50
PROVIDERS: ATTEND Surgery
DX: K40.20 Bilateral inguinal hernia, without obstruction or gangrene, not specified as recurrent (principal); D17.6 Benign lipomatous neoplasm of spermatic cord; I10 Essential (primary) hypertension; F17.200 Nicotine dependence, unspecified, uncomplicated; J45.909 Unspecified asthma, uncomplicated; K21.9 Gastro-esophageal reflux disease without esophagitis; Z79.01 Long term (current) use of anticoagulants; Z79.1 Long term (current) use of non-steroidal anti-inflammatories (NSAID); Z99.2 Dependence on renal dialysis
CPT/HCPCS: 49650; 64999; 88304; 88305; C1781 ×2; J2250; J1200; J1100; J2710; J2175; J0690; J2405; J2001; J3010; J1170 ×2; J2795; J1885; J0330; J2704; J1644

== ENCOUNTER → 2021-10-26 | Outpatient (CLI) | payer OTHER ==
--- NOTE | 2021-10-27 01:43 | MR ---
EXAMINATION TYPE: MR shoulder RT wo con DATE OF EXAM: 10/26/2021 COMPARISON: None HISTORY: Right Shoulder Pain x3 months-Painful to raise over head Multiplanar multiecho imaging of the right shoulder without contrast. There is narrowing of the glenohumeral joint space. There is 11 mm area of fluid signal in the subcho ndral inferior glenoid. There is some mild edema also in the greater tuberosity humerus measuring 13 mm. There is increased signal in the supraspinatus tendon without a definite full-thickness tear. The AC joint is intact. There is no evidence of a fracture. There is spurring along the humeral head. Th ere is 1 cm area of subchondral cystic change in the superior glenoid. No fracture line seen. The subscapularis tendon is intact. Biceps tendon is intact. There is minimal shoulder joint effusion . 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 Glenohumera l joint space narrowing. There is bone bruising and edema in the greater tuberosity of the humerus. T here is intrasubstance tear of the supraspinatus tendon without a definite full-thickness tear. No re traction.
== END | disposition home or self-care (01) ==
LOC: RADMRIMAIN 08:59
PROVIDERS: ATTEND Orthopaedic Surgery
DX: S46.001A Unspecified injury of muscle(s) and tendon(s) of the rotator cuff of right shoulder, initial encounter (principal); S40.021A Contusion of right upper arm, initial encounter; M19.011 Primary osteoarthritis, right shoulder; M85.412 Solitary bone cyst, left shoulder; X58.XXXA Exposure to other specified factors, initial encounter

== ENCOUNTER → 2022-06-28 | Outpatient (CLI) | payer OTHER ==
--- NOTE | 2022-06-28 13:11 | XR ---
EXAMINATION TYPE: XR lumbosacral spine min 4V DATE OF EXAM: 06/28/2022 COMPARISON: None HISTORY: Lumbago and sciatica right side TECHNIQUE: 5 view lumbar spine FINDINGS: There are 5 lumbar-type vertebral bodies. Pedicles are intact and facet degenerative change s present L4-5 and L5-S1. Some milder facet degenerative changes present L3-4 no spondylolytic defect s are evident. Thoracic disc heights are preserved. There appears be mild Schmorl's node formation al woodrow the superior L1 and L2 vertebral bodies.. MRI could be performed for evaluation of soft tissues IMPRESSION: 1. Mild facet degenerative changes L3-4 through L5-S1
== END | disposition home or self-care (01) ==
LOC: RADXRMAIN 12:47
PROVIDERS: ATTEND Nurse Practitioner Family
DX: M47.897 Other spondylosis, lumbosacral region (principal); M54.41 Lumbago with sciatica, right side
CPT/HCPCS: 72110

== ENCOUNTER → 2022-07-24 | Outpatient (CLI) | payer OTHER ==
--- NOTE | 2022-07-24 08:53 | MR ---
EXAMINATION TYPE: MR lumbar spine wo con DATE OF EXAM: 07/24/2022 7:32 AM COMPARISON: None. CLINICAL INDICATION:Male, 46 years old with history of M54.41 lumbago; TECHNIQUE: Multi planar, multi sequence imaging was performed utilizing: T1-weighted, T2-weighted, a nd turbo inversion recovery imaging of the lumbar spine. IV Contrast: None. FINDINGS: Alignment: The lumbar vertebral bodies have preserved heights and alignment. Cord: The conus medullaris and the distal spinal cord appear unremarkable with regards to their signa l intensity and morphology. Bones/Discs: Somewhat heterogenous bone marrow signal present. No bone marrow edema visualized. Multi level degenerative disc disease is noted scattered Schmorl's nodes are noted and most pronounced on t he superior endplate of L1-L3. Intervertebral disc signal is maintained. L1-L2: No evidence of significant spinal canal stenosis or neural foraminal stenosis. L2-L3: No evidence of significant spinal canal stenosis or neural foraminal stenosis. L3-L4: No evidence of significant spinal canal stenosis. Facet joint arthropathy with mild bilateral neural foraminal stenosis. L4-L5: Disc bulge and facet joint arthropathy with out significant spinal canal stenosis. There is mi ld bilateral neural foraminal stenosis. L5-S1: No evidence of significant spinal canal stenosis. Facet joint arthropathy with mild bilateral neural foraminal stenosis. Other findings: None. IMPRESSION: 1. No definitive evidence of disc herniation or significant spinal canal stenosis. 2. Multilevel disc degeneration with associated osteoarthritic changes.
== END | disposition home or self-care (01) ==
LOC: RADMRIMAIN 06:55
PROVIDERS: ATTEND Family Medicine
DX: M51.36 Other intervertebral disc degeneration, lumbar region (principal); M47.816 Spondylosis without myelopathy or radiculopathy, lumbar region; M99.74 Connective tissue and disc stenosis of intervertebral foramina of sacral region; M51.46 Schmorl's nodes, lumbar region; M54.41 Lumbago with sciatica, right side
CPT/HCPCS: 72148

== ENCOUNTER 2023-02-13 21:57 | Observation (INO) | payer OTHER ==
[2023-02-13] MEDS ORDERED: KETOROLAC 15 MG/ML 1 ML VIAL IVP STA (22:19)
[2023-02-13] MEDS ORDERED: SODIUM CHLORIDE 0.9% 1,000 ML IV STA (22:19)
[2023-02-13] MEDS ORDERED: ONDANSETRON 4 MG/2 ML VIAL IVP STA (22:19)
--- NOTE | 2023-02-13 22:42 | ED ---
General Adult HPI - General Chief complaint: Abdominal Pain Stated complaint: dizziness, and pancreas issues Time Seen by Provider: 02/13/23 22:08 Source: patient, family Mode of arrival: wheelchair Limitations: no limitations - History of Present Illness Initial comments: Patient is a 47-year-old male presenting with chief complaint of abdominal pain. Patient is having left sided and epigastric abdominal pain that feels identical to previous flareups of pancreatitis. Patient currently sees a roadside mechanic at [facility]. Admits to nausea with no vomiting. No diarrhea. No chest pain or difficulty breathing. No fevers or chills. No dysuria or hematuria. States that the pain does travel to his back. Additionally patient is also complaining of some lightheadedness. Patient states that he hit the front of his head 2 days ago on a cabinet when he turned around too quickly. He states that he felt very close to losing consciousness but did not completely lose consciousness. No blood thinners. No numbness, tingling, weakness, vision or hearing changes, confusion, headache. - Related Data Home Medications Medication Instructions Recorded Confirmed Lactulose 10 gm PO BID 03/09/21 06/07/21 Albuterol Sulfate [Proair Hfa] 2 puff INHALATION RT-DAILY 05/16/21 06/07/21 Apixaban [Eliquis] 5 mg PO BID 05/16/21 06/07/21 Cyclobenzaprine [Flexeril] 10 mg PO HS 05/16/21 06/07/21 Fluticasone Nasal [place] [Flonase 1 spr EA NOSTRIL DAILY 05/16/21 06/07/21 Nasal [place]] Gabapentin 800 mg PO TID 05/16/21 06/07/21 Ibuprofen [Motrin] 800 mg PO TID PRN 05/16/21 06/07/21 Omeprazole 20 mg PO DAILY 05/16/21 06/07/21 traMADol HCL [Ultram] 50 mg PO Q6HR PRN 06/02/21 06/07/21 Previous Rx's Medication Instructions Recorded Acetaminophen Tab [Tylenol] 650 mg PO Q6H #30 tab 06/07/21 Docusate [Colace] 100 mg PO BID #20 cap 06/07/21 Ibuprofen [Motrin] 600 mg PO Q6HR PRN #40 tab 10/05/21 oxyCODONE HCL [OxyIR] 5 mg PO Q6H PRN 3 Days #10 tab 06/07/21 Allergies Allergy/AdvReac Type Severity Reaction Status Date / Time No Known Allergies Allergy Verified 02/13/23 22:04 Review of Systems ROS Statement: Those systems with pertinent positive or pertinent negative responses have been documented in the HPI. ROS Other: All systems not noted in ROS Statement are negative. Past Medical History Past Medical History: Asthma, GERD/Reflux, Hypertension, Neurologic Disorder, Renal Disease Additional Past Medical History / Comment(s): ETOH with drawal with trem ors/seizure, bronchitis, neuropathy R leg/R foot pain/limps, chronic low back pain/5 disc ruptured, 2017 pt had dialysis for 3 months but states kidneys are working fine now, insomnia. History of Any Multi-Drug Resistant Organisms: None Reported Past Surgical History: Orthopedic Surgery Additional Past Surgical History / Comment(s): Rhinoplasty, sinus scrapped, L lower eyelid laceration/repair, R 2nd toe metatarsopharangeal arthroplasty. PANCREATIC STENT INSERTION AND REMOVAL Past Anesthesia/Blood Transfusion Reactions: No Reported Reaction Past Psychological History: Anxiety, Depression Smoking Status: Current every day smoker, Vaper Past Alcohol Use History: None Reported Past Drug Use History: None Reported - Past Family History Mother Family Medical History: No Reported History Additional Family Medical History / Comment(s): Mother is healthy. Father Family Medical History: No Reported History Additional Family Medical History / Comment(s): Father is healthy General Exam Limitations: no limitations General appearance: alert, in no apparent distress Head exam: Present: atraumatic, normocephalic, normal inspection Eye exam: Present: normal appearance, PERRL, EOMI. Absent: scleral icterus, periorbital swelling Pupils: Present: normal accommodation Neck exam: Present: normal inspection, full ROM Respiratory exam: Present: normal lung sounds bilaterally. Absent: respiratory distress, wheezes, rales, rhonchi, stridor Cardiovascular Exam: Present: regular rate, normal rhythm, normal heart sounds. Absent: systolic murmur, diastolic murmur, rubs, gallop, clicks GI/Abdominal exam: Present: soft, tenderness. Absent: distended, guarding, rebound, rigid Neurological exam: Present: alert, oriented X3, CN II-XII intact Expanded Patient oriented to: Present: person, place, time Speech: Present: fluid speech Cranial nerves: EOM's Intact: Normal Sensory exam: Upper Extremity Light Touch: Normal, Lower Extremity Light Touch: Normal Motor strength exam: RUE: 5, LUE: 5, RLE: 5, LLE: 5 Eye Response: (4) open spontaneously Motor Response: (6) obeys commands Verbal Response: (5) oriented Sera Total: 15 Psychiatric exam: Present: normal affect, normal mood Skin exam: Present: warm, dry, intact, normal color. Absent: rash Course Vital Signs 02/13/23 02/14/23 02/14/23 22:00 03:14 03:29 Temperature 98.9 F 98.7 F Pulse Rate 111 H Pulse Rate [ 79 79 Left Supine Pulse Oximetery ] Respiratory 20 18 18 Rate Blood Pressure 153/79 Blood Pressure 141/76 [Left Arm Supine] O2 Sat by Pulse 99 98 Oximetry Medical Decision Making - Medical Decision Making Was pt. sent in by a medical professional or institution (, PA, OFFICE SUPPORT SPECIALIST, urgent care, hospital, or long term...) When possible be specific @ -No Did you speak to anyone other than the patient for history (EMS, parent, family, police, friend...)? What history was obtained from this source @ -No Did you review nursing and triage notes (agree or disagree)? Why? @ -I reviewed and agree with nursing and triage notes Were old charts reviewed (outside hosp., previous admission, EMS record, old EKG, old radiological studies, urgent care reports/EKG's, long term records)? Report findings @ -No old charts were reviewed Differential Diagnosis (chest pain, altered mental status, abdominal pain women, abdominal pain men, vaginal bleeding, weakness, fever, dyspnea, syncope, headache, dizziness, GI bleed, back pain, seizure, CVA, palpatations, mental health, musculoskeletal)? @ -MDM Differential Abdominal Pain Men: Appendicitis, cholecystitis, diverticulosis, ischemic bowel, pancreatitis, hepatitis, UTI, gastroenteritis, AAA, incarcerated hernia, bowel obstruction, constipation, inflammatory bowel, hepatitis, peptic ulcer disease, splenic infarction, perforated viscus, testicular torsion... This is not meant to be an all-inclusive list EKG interpreted by me (3pts min.). @ -As above X-rays interpreted by me (1pt min.). @ -None done CT interpreted by me (1pt min.). @ -CT shows small to moderate amount of free fluid in the left upper quadrant adjacent to the pancreatic tail, spleen, kidney as well as in the left paracolic gutter. This is nonspecific. Previously seen moderate ascites has otherwise resolved. Dilation of the pancreatic duct within the tail of the pancreas. The re is calcification in the central pancreas consistent with chronic pancreatitis. Nonobstructive 3 mm calculus in the right kidney and 3 mm calculus in the left kidney. No hydronephrosis or urolithiasis seen. Fatty infiltration of the liver as well as a mildly enlarged liver. No focal lesion seen. Appendix is normal. No evidence of obstruction. No inflammatory changes are seen. U/S interpreted by me (1pt. min.). @ -None done What testing was considered but not performed or refused? (CT, X-rays, U/S, labs)? Why? @ -None What meds were considered but not given or refused? Why? @ -None Did you discuss the management of the patient with other professionals (professionals i.e. , PA, OFFICE SUPPORT SPECIALIST, lab, RT, psych nurse, social work administrator, computer recycling worker, teacher, traffic maintenance officer, casework manager)? Give summary @ -I spoke with Nano from [facility] hospitalist group accepted admission Was smoking cessation discussed for >3mins.? @ -No Was critical care preformed (if so, how long)? @ -No Were there social determinants of health that impacted care today? How? (Homelessness, low income, unemployed, alcoholism, drug addiction, transportation, low edu. Level, literacy, decrease access to med. care, fdc, rehab)? @ -No Was there de-escalation of care discussed even if they declined (Discuss DNR or withdrawal of care, Hospice)? DNR status @ -No What co-morbidities impacted this encounter? (DM, HTN, Smoking, COPD, CAD, Cancer, CVA, ARF, Chemo, Hep., AIDS, mental health diagnosis, sleep apnea, morbid obesity)? @ -None Was patient admitted / discharged? Hospital course, mention meds given and route, prescriptions, significant lab abnormalities, going to OR and other pertinent info. @ -47-year-old male presenting with chief complaint of abdominal pain. States that it feels similar to previous episodes of pancreatitis. Lab work shows lipase 398. WBC 11.5 and hemoglobin 12.3. Lactic acid 2.8, likely due to dehydration. CT shows left upper quadrant free fluid and dilated pancreatic duct. On reassessment patient reports continued pain. Will be admitted for observation and evaluation by GI. Patient is agreeable to this plan. I discussed this case with my attending Dr. Argueta. Undiagnosed new problem with uncertain prognosis? @ -No Drug Therapy requiring intensive monitoring for toxicity (Heparin, Nitro, Insulin, Cardizem)? @ -No Were any procedures done? @ -No Diagnosis/symptom? @ -dilated pancreatic duct Acute, or Chronic, or Acute on Chronic? @ -Acute Uncomplicated (without systemic symptoms) or Complicated (systemic symptoms)? @ -Uncomplicated Side effects of treatment? @ -No Exacerbation, Progression, or Severe Exacerbation? @ -No Poses a threat to life or bodily function? How? (Chest pain, USA, LA, pneumonia, PE, COPD, DKA, ARF, appy, cholecystitis, CVA, Diverticulitis, Homicidal, Suicidal, threat to staff... and all critical care pts) @ -No - Lab Data Result diagrams: 02/13/23 23:05 02/13/23 23:05 Lab Results 02/13/23 02/13/23 02/13/23 Range/Units 23:05 23:05 23:05 WBC 11.5 H (3.8-10.6) k/uL RBC 4.00 L (4.30-5.90) m/uL Hgb 12.3 L (13.0-17.5) gm/dL Hct 35.7 L (39.0-53.0) % MCV 89.3 (80.0-100.0) fL MCH 30.6 (25.0-35.0) pg MCHC 34.3 (31.0-37.0) g/dL RDW 14.7 (11.5-15.5) % Plt Count 221 (150-450) k/uL MPV 7.5 Neutrophils % 57 % Lymphocytes % 16 % Monocytes % 4 % Eosinophils % 21 % Basophils % 0 % Neutrophils # 6.6 (1.3-7.7) k/uL Lymphocytes # 1.8 (1.0-4.8) k/uL Monocytes # 0.5 (0-1.0) k/uL Eosinophils # 2.4 H (0-0.7) k/uL Basophils # 0.0 (0-0.2) k/uL Manual Slide Review Performed PT 10.0 (9.0-12.0) sec INR 0.9 (<1.2) APTT 22.7 (22.0-30.0) sec Sodium 139 (137-145) mmol/L Potassium 4.1 (3.5-5.1) mmol/L Chloride 103 (98-107) mmol/L Carbon Dioxide 24 (22-30) mmol/L Anion Gap 12 mmol/L BUN 11 (9-20) mg/dL Creatinine 1.36 H (0.66-1.25) mg/dL Est GFR (CKD-EPI)AfAm 71 (>60 ml/min/1.73 sqM) Est GFR (CKD-EPI)NonAf 62 (>60 ml/min/1.73 sqM) Glucose 130 H (74-99) mg/dL Lactic Ac Sepsis Rflx Plasma Lactic Acid Valentino (0.7-2.0) mmol/L Calcium 8.9 (8.4-10.2) mg/dL Total Bilirubin 0.4 (0.2-1.3) mg/dL AST 35 (17-59) U/L ALT 25 (4-49) U/L Alkaline Phosphatase 106 (38-126) U/L Total Protein 7.0 (6.3-8.2) g/dL Albumin 4.3 (3.5-5.0) g/dL Amylase 109 (30-110) U/L Lipase 398 H (23-300) U/L Urine Color Urine Appearance (Clear) Urine pH (5.0-8.0) Ur Specific [place] (1.001-1.035) Urine Protein (Negative) Urine Glucose (UA) (Negative) Urine Ketones (Negative) Urine Blood (Negative) Urine Nitrite (Negative) Urine Bilirubin (Negative) Urine Urobilinogen (<2.0) mg/dL Ur Leukocyte Esterase (Negative) 02/13/23 02/13/23 02/13/23 Range/Units 23:05 23:06 23:37 WBC (3.8-10.6) k/uL RBC (4.30-5.90) m/uL Hgb (13.0-17.5) gm/dL Hct (39.0-53.0) % MCV (80.0-100.0) fL MCH (25.0-35.0) pg MCHC (31.0-37.0) g/dL RDW (11.5-15.5) % Plt Count (150-450) k/uL MPV Neutrophils % % Lymphocytes % % Monocytes % % Eosinophils % % Basophils % % Neutrophils # (1.3-7.7) k/uL Lymphocytes # (1.0-4.8) k/uL Monocytes # (0-1.0) k/uL Eosinophils # (0-0.7) k/uL Basophils # (0-0.2) k/uL Manual Slide Review PT (9.0-12.0) sec INR (<1.2) APTT (22.0-30.0) sec Sodium (137-145) mmol/L Potassium (3.5-5.1) mmol/L Chloride (98-107) mmol/L Carbon Dioxide (22-30) mmol/L Anion Gap mmol/L BUN (9-20) mg/dL Creatinine (0.66-1.25) mg/dL Est GFR (CKD-EPI)AfAm (>60 ml/min/1.73 sqM) Est GFR (CKD-EPI)NonAf (>60 ml/min/1.73 sqM) Glucose (74-99) mg/dL Lactic Ac Sepsis Rflx Y Plasma Lactic Acid Valentino 2.8 H* (0.7-2.0) mmol/L Calcium (8.4-10.2) mg/dL Total Bilirubin (0.2-1.3) mg/dL AST (17-59) U/L ALT (4-49) U/L Alkaline Phosphatase (38-126) U/L Total Protein (6.3-8.2) g/dL Albumin (3.5-5.0) g/dL Amylase (30-110) U/L Lipase (23-300) U/L Urine Color Yellow Urine Appearance Clear (Clear) Urine pH 6.0 (5.0-8.0) Ur Specific [place] 1.025 (1.001-1.035) Urine Protein Trace H (Negative) Urine Glucose (UA) Negative (Negative) Urine Ketones Negative (Negative) Urine Blood Negative (Negative) Urine Nitrite Negative (Negative) Urine Bilirubin Negative (Negative) Urine Urobilinogen <2.0 (<2.0) mg/dL Ur Leukocyte Esterase Negative (Negative) Disposition Clinical Impression: Dilated pancreatic duct Disposition: ADMITTED IP TO THIS HOSP Condition: Fair Time of Disposition: 02:11
[2023-02-13 23:29] LABS: ALT 25 U/L (4-49); AST 35 U/L (17-59); African American GFR (CKD) 71 (>60 ml/min/1.73 sqM); Albumin 4.3 g/dL (3.5-5.0); Alkaline Phosphatase 106 U/L (38-126); Amylase 109 U/L (30-110); Anion Gap 12 mmol/L; Blood Urea Nitrogen 11 mg/dL (9-20); Calcium 8.9 mg/dL (8.4-10.2); Carbon Dioxide 24 mmol/L (22-30); Chloride 103 mmol/L (98-107); Glucose 130 mg/dL (74-99); Lipase 398 U/L (23-300); Non-African American GFR(CKD) 62 (>60 ml/min/1.73 sqM); Potassium 4.1 mmol/L (3.5-5.1); Sodium 139 mmol/L (137-145); Total Bilirubin 0.4 mg/dL (0.2-1.3)
[2023-02-13 23:30] LABS: Appearance,Urine Clear (Clear); Bilirubin,Urine Negative (Negative); Blood,Urine Negative (Negative); Color,Urine Yellow; Glucose,Urine (UA) Negative (Negative); Ketones,Urine Negative (Negative); Leukocyte Esterase,Urine Negative (Negative); Nitrite,Urine Negative (Negative); Protein,Urine Trace (Negative); Specific Gravity,Urine 1.025 (1.001-1.035); Urobilinogen,Urine <2.0 mg/dL (<2.0)
[2023-02-13 23:34] LABS: INR 0.9 (<1.2); Partial Thromboplastin Time 22.7 sec (22.0-30.0)
[2023-02-13 23:36] LABS: Basophils % (A) 0 %; Eosinophils # (A) 2.4 k/uL (0-0.7); Eosinophils % (A) 21 %; HCT 35.7 % (39.0-53.0); HGB 12.3 gm/dL (13.0-17.5); Lymphocytes # (A) 1.8 k/uL (1.0-4.8); Lymphocytes % (A) 16 %; MCH 30.6 pg (25.0-35.0); MCHC 34.3 g/dL (31.0-37.0); MCV 89.3 fL (80.0-100.0); Mean Platelet Volume 7.5; Monocytes # (A) 0.5 k/uL (0-1.0); Monocytes % (A) 4 %; Neutrophils # (A) 6.6 k/uL (1.3-7.7); Neutrophils % (A) 57 %; Platelet Count 221 k/uL (150-450); RDW 14.7 % (11.5-15.5); WBC 11.5 k/uL (3.8-10.6)
--- NOTE | 2023-02-14 01:10 | CT ---
EXAM: CT Abdomen and Pelvis With Intravenous Contrast CLINICAL HISTORY: CT Reason: LLQ abdominal pain TECHNIQUE: Axial computed tomography images of the abdomen and pelvis with intravenous contrast. CTDI is 17.8 mGy and DLP is 903.1 mGy-cm. This CT exam was performed using one or more of the following dose reduction techniques: automated exposure control, adjustment of the mA and/or kV according to patient size, and/or use of iterative reconstruction technique. COMPARISON: March 12, 2021 FINDINGS: Lung bases: Unremarkable. No mass. No consolidation. ABDOMEN: Liver: There is fatty infiltration of the liver. The liver is mildly enlarged is 18.6 cm. No focal liver lesion is seen. Gallbladder and bile ducts: Unremarkable. No calcified stones. No ductal dilation. Pancreas: Dilation of the pancreatic duct within the tail of the pancreas. There is a calcification in the central pancreas consistent with chronic pancreatitis. Mild acute pancreatitis cannot be excluded. Spleen: Unremarkable. No splenomegaly. Adrenals: Unremarkable. No mass. Kidneys and ureters: Delayed images show normal renal contrast excretion bilaterally. Nonobstructive 3 mm calyceal calculus in the upper pole the right kidney and 3 mm calculus in the lower pole the left kidney. No hydronephrosis or ureterolithiasis is seen. Stomach and bowel: Unremarkable. No obstruction. No mucosal thickening. PELVIS: Appendix: The appendix is normal. Bowel loops are nondilated. No acute inflammatory changes are seen involving the bowel. Bladder: Unremarkable. No mass. Reproductive: Unremarkable as visualized. ABDOMEN and PELVIS: Intraperitoneal space: There is a small moderate of free fluid in the left upper quadrant adjacent to the pancreatic tail, spleen, and kidney as well as in the left paracolic gutter. This is nonspecific. The exact etiology is unclear. The previously seen moderate ascites has otherwise resolved. No free air. Bones/joints: No acute fracture. No dislocation. Soft tissues: Unremarkable. Vasculature: Unremarkable. No abdominal aortic aneurysm. Lymph nodes: Unremarkable. No enlarged lymph nodes. IMPRESSION: 1. There is a small moderate of free fluid in the left upper quadrant adjacent to the pancreatic tail, spleen, and kidney as well as in the left paracolic gutter. This is nonspecific. The exact etiology is unclear. The previously seen moderate ascites has otherwise resolved. 2. Dilation of the pancreatic duct within the tail of the pancreas. There is a calcification in the central pancreas consistent with chronic pancreatitis. Mild acute pancreatitis cannot be excluded. Recommend correlation with serum amylase and lipase. 3. Nonobstructive 3 mm calyceal calculus in the upper pole the right kidney and 3 mm calculus in the lower pole the left kidney. No hydronephrosis or ureterolithiasis is seen. 4. There is fatty infiltration of the liver. The liver is mildly enlarged is 18.6 cm. No focal liver lesion is seen. 5. The appendix is normal. Bowel loops are nondilated. No acute inflammatory changes are seen involving the bowel.
[2023-02-14] MEDS ORDERED: NALOXONE 0.4 MG/ML 1 ML VIAL IV PRN (02:46)
[2023-02-14] MEDS ORDERED: ONDANSETRON 4 MG/2 ML VIAL IVP PRN (02:46)
[2023-02-14] MEDS ORDERED: KETOROLAC 15 MG/ML 1 ML VIAL IVP PRN (02:46)
[2023-02-14] MEDS: HYDROmorphone 1 MG/ML 1 ML SYRINGE IVP PRN ×6 (03:36→21:23)
[2023-02-14] MEDS: SODIUM CHLORIDE 0.9% 1,000 ML IV SCH ×2 (06:05→18:17)
--- NOTE | 2023-02-14 11:25 | P.HPIM ---
History of Present Illness Patient is a 47-year-old male came in with compensative epigastric abdominal pain severe pain with a history of multiple pancreatitis in the past and CT of the abdomen showing chronic pancreatitis and possibility of mild acute pancre atitis. Patient's lipase went up to 398. Patient has issues with pancreatic duct and follows with the mailroom courier at [facility]. Patient's pain is sharp in nature and nonradiating mostly in the epigastric and left upper quadrant areas. Patient is presently nothing by mouth. Patient the also has elevated creatinine of 1.36 because of which Toradol is being discontinued and patient is on IV fluids at this time with the gastroneurology consultation. Patient does have mild leukocytosis. Patient is hungry pain improved compared to yesterday. Patient had nausea as well. Patient was lightheaded REVIEW OF SYSTEMS: CONSTITUTIONAL: No fever, no malaise, no fatigue. HEENT: No recent visual problems or hearing problems. Denied any sore throat. CARDIOVASCULAR: No chest pain, orthopnea, PND, no palpitations, no syncope. PULMONARY: No shortness of breath, no cough, no hemoptysis. GASTROINTESTINAL: As mentioned in HPI NEUROLOGICAL: No headaches, no weakness, no numbness. HEMATOLOGICAL: Denies any bleeding or petechiae. GENITOURINARY: Denies any burning micturition, frequency, or urgency. MUSCULOSKELETAL/RHEUMATOLOGICAL: Denies any joint pain, swelling, or any muscle pain. ENDOCRINE: Denies any polyuria or polydipsia. The rest of the 14-point review of systems is negative. PHYSICAL EXAMINATION: GENERAL: The patient is alert and oriented x3, not in any acute distress. Well developed, well nourished. HEENT: Pupils are round and equally reacting to light. EOMI. No scleral icterus. No conjunctival pallor. Normocephalic, atraumatic. No pharyngeal erythema. No thyromegaly. CARDIOVASCULAR: S1 and S2 present. No murmurs, rubs, or gallops. PULMONARY: Chest is clear to auscultation, no wheezing or crackles. ABDOMEN: Mild epigastric abdominal tenderness nondistended, normoactive bowel sounds. No palpable organomegaly. MUSCULOSKELETAL: No joint swelling or deformity. EXTREMITIES: No cyanosis, clubbing, or pedal edema. NEUROLOGICAL: Gross neurological examination did not reveal any focal deficits. SKIN: No rashes. Assessment and plan 1 abdominal pain: Probably secondary to acute on chronic pancreatitis, patient had dilated pancreatic that because of his gastric surgery was consulted patient will remain nothing by mouth and gastroenterology evaluation. There is a possibility of gastritis or peptic ulcer contributing to the symptoms because of which Toradol was discontinued and patient was started on Protonix IV-Acute renal failure: Patient was started on IV fluids. Lipase is only minimally elevated and this elevation can be his by mouth pancreatic enzyme supplementation -Leukocytosis: Secondary to assessment #1 -Hypertension -Gastroesophageal reflux disease DVT prophylaxis: Early ambulation Past Medical History Past Medical History: Asthma, GERD/Reflux, Hypertension, Neurologic Disorder, Renal Disease Additional Past Medical History / Comment(s): ETOH with drawal with tremors/seizure, bronchitis, neuropathy R leg/R foot pain/limps, chronic low back pain/5 disc ruptured, 2017 pt had dialysis for 3 months but states kidneys are working fine now, insomnia. History of Any Multi-Drug Resistant Organisms: None Reported Past Surgical History: Orthopedic Surgery Additional Past Surgical History / Comment(s): Rhinoplasty, sinus scrapped, L lower eyelid laceration/repair, R 2nd toe metatarsopharangeal arthroplasty. PANCREATIC STENT INSERTION AND REMOVAL Past Anesthesia/Blood Transfusion Reactions: No Reported Reaction Past Psychological History: Anxiety, Depression Smoking Status: Current every day smoker, Vaper Past Alcohol Use History: None Reported Past Drug Use History: None Reported - Past Family History Mother Family Medical History: No Reported History Additional Family Medical History / Comment(s): Mother is healthy. Father Family Medical History: No Reported History Additional Family Medical History / Comment(s): Father is healthy Medications and Allergies Home Medications Medication Instructions Recorded Confirmed Type Gabapentin 800 mg PO TID 05/16/21 02/14/23 History Cyclobenzaprine [Flexeril] 10 mg PO BID PRN 02/14/23 02/14/23 History Ergocalciferol [Vitamin D2 (1250 1,250 mcg PO Q7D 02/14/23 02/14/23 History Mcg = 32899 Iu)] Ferrous Sulfate [Feosol] 325 mg PO DAILY 02/14/23 02/14/23 History Lipase/Protease/Amylase [Creon Dr 1 cap PO TID-W/MEALS 02/14/23 02/14/23 History 36,000 Unit Capsule] Sildenafil Citrate [Viagra] 100 mg PO DAILY PRN 02/14/23 02/14/23 History atenoloL [Tenormin] 25 mg PO DAILY 02/14/23 02/14/23 History Allergies Allergy/AdvReac Type Severity Reaction Status Date / Time No Known Allergies Allergy Verified 02/14/23 09:10 Physical Exam Vitals: Vital Signs Temp Pulse Pulse Resp BP BP Pulse Ox 02/14/23 11:00 65 16 145/65 02/14/23 09:00 98 F 65 16 150/86 98 02/14/23 08:25 98 F 77 20 154/86 98 02/14/23 03:29 79 18 02/14/23 03:14 98.7 F 79 18 141/76 98 02/13/23 22:00 98.9 F 111 H 20 153/79 99 Intake and Output 02/13/23 02/14/23 02/14/23 22:59 06:59 14:59 Other: Voiding Method Urinal Weight 83.915 kg 83.915 kg Results CBC & Chem 7: 02/13/23 23:05 02/13/23 23:05 Labs: Abnormal Lab Results - Last 24 Hours (Table) 02/13/23 02/13/23 02/13/23 Range/Units 23:05 23:05 23:05 WBC 11.5 H (3.8-10.6) k/uL RBC 4.00 L (4.30-5.90) m/uL Hgb 12.3 L (13.0-17.5) gm/dL Hct 35.7 L (39.0-53.0) % Eosinophils # 2.4 H (0-0.7) k/uL Creatinine 1.36 H (0.66-1.25) mg/dL Glucose 130 H (74-99) mg/dL Plasma Lactic Acid Valentino 2.8 H* (0.7-2.0) mmol/L Lipase 398 H (23-300) U/L Urine Protein (Negative) 02/13/23 Range/Units 23:06 WBC (3.8-10.6) k/uL RBC (4.30-5.90) m/uL Hgb (13.0-17.5) gm/dL Hct (39.0-53.0) % Eosinophils # (0-0.7) k/uL Creatinine (0.66-1.25) mg/dL Glucose (74-99) mg/dL Plasma Lactic Acid Valentino (0.7-2.0) mmol/L Lipase (23-300) U/L Urine Protein Trace H (Negative) Thrombosis Risk Factor Assmnt - Choose All That Apply Any of the Below Risk Factors Present?: Yes Each Factor Represents 1 point: Age 41-60 years Each Risk Factor Represents 3 Points: History of DVT/PE Thrombosis Risk Factor Assessment Total Risk Factor Score: 4 Thrombosis Risk Factor Assessment Level: Moderate Risk
[2023-02-14] MEDS ORDERED: hydrALAZINE HCL 20 MG/ML 1 ML VIAL IVP PRN (11:50)
--- NOTE | 2023-02-14 11:57 | P.NPCON ---
History of Present Illness - Reason for Consult acute renal failure - History of Present Illness Reason for consultation: Acute kidney injury History of present illness: Patient is a 47-year-old male seen in renal consultation for acute kidney injury. Patient was seen and examined in the emergency room. Patient has history of kidney failure requiring dialysis for about 3-4 months in 2017. Subsequently his kidney function improved and he's been off dialysis. Patient baseline creatinine is 0.6-0.8. This admission and was elevated at 1.36. Patient came to the hospital due to abdominal pain which began Sunday night. Patient states he got this past weekend in [place] and drank si gnificant amount of alcohol. Patient states he had multiple shots and multiple beers daily. Oral intake has been fair. Denies chest pain or shortness of breath. Patient does have history of pancreatitis requiring stenting. Patient follows with senior mortgage loan processor out of [facility]. Patient received IV contrast yesterday for CT of the abdomen and pelvis which showed no hydronephrosis, dilation of the pancreatic duct and findings consistent with chronic pancreatitis. Lipase is noted to be elevated at 398. UA fairly benign. He does admit to use of nonsteroidals on a daily basis. Patient states he takes about 6-8 tabs of Motrin or Advil on a daily basis due to neuropathy. Denies gross hematuria. No history of diabetes. Denies family history of renal disease. No history of coronary artery disease. Vital signs are stable. General: No acute distress. HEENT: Head exam is unremarkable. LUNGS: No audible rhonchi or wheezes. HEART: Rate and Rhythm are regular. ABDOMEN: Generalized tenderness. No distention. EXTREMITITES: No edema. Past Medical History Past Medical History: Asthma, GERD/Reflux, Hypertension, Neurologic Disorder, Re nal Disease Additional Past Medical History / Comment(s): ETOH with drawal with tremors/seizure, bronchitis, neuropathy R leg/R foot pain/limps, chronic low back pain/5 disc ruptured, 2017 pt had dialysis for 3 months but states kidneys are working fine now, insomnia. History of Any Multi-Drug Resistant Organisms: None Reported Past Surgical History: Orthopedic Surgery Additional Past Surgical History / Comment(s): Rhinoplasty, sinus scrapped, L lower eyelid laceration/repair, R 2nd toe metatarsopharangeal arthroplasty. PANCREATIC STENT INSERTION AND REMOVAL Past Anesthesia/Blood Transfusion Reactions: No Reported Reaction Past Psychological History: Anxiety, Depression Smoking Status: Current every day smoker, Vaper Past Alcohol Use History: None Reported Past Drug Use History: None Reported - Past Family History Mother Family Medical History: No Reported History Additional Family Medical History / Comment(s): Mother is healthy. Father Family Medical History: No Reported History Additional Family Medical History / Comment(s): Father is healthy Medications and Allergies Home Medications Medication Instructions Recorded Confirmed Type Gabapentin 800 mg PO TID 05/16/21 02/14/23 History Cyclobenzaprine [Flexeril] 10 mg PO BID PRN 02/14/23 02/14/23 History Ergocalciferol [Vitamin D2 (1250 1,250 mcg PO Q7D 02/14/23 02/14/23 History Mcg = 00811 Iu)] Ferrous Sulfate [Feosol] 325 mg PO DAILY 02/14/23 02/14/23 History Lipase/Protease/Amylase [Creon Dr 1 cap PO TID-W/MEALS 02/14/23 02/14/23 History 36,000 Unit Capsule] Sildenafil Citrate [Viagra] 100 mg PO DAILY PRN 02/14/23 02/14/23 History atenoloL [Tenormin] 25 mg PO DAILY 02/14/23 02/14/23 History Allergies Allergy/AdvReac Type Severity Reaction Status Date / Time No Known Allergies Allergy Verified 02/14/23 09:10 Physical Exam Vitals: Vital Signs Temp Pulse Pulse Resp BP BP Pulse Ox 02/14/23 11:00 65 16 145/65 02/14/23 09:00 98 F 65 16 150/86 98 02/14/23 08:25 98 F 77 20 154/86 98 02/14/23 03:29 79 18 02/14/23 03:14 98.7 F 79 18 141/76 98 02/13/23 22:00 98.9 F 111 H 20 153/79 99 Intake and Output 02/13/23 02/14/23 02/14/23 22:59 06:59 14:59 Other: Voiding Method Urinal Weight 83.915 kg 83.915 kg Results - Lab Results Most recent lab results Calcium 8.9 mg/dL (8.4-10.2) 02/13/23 23:05 02/13/23 23:05 02/13/23 23:05 Assessment and Plan Plan: Assessment: 1. Acute kidney injury mostly prerenal secondary to nonsteroidals and poor intake. Creatinine 1.36 on admission. Baseline creatinine 0.6-0.8. No hydronephrosis noted on CAT scan. Patient also received IV contrast for CT of the abdomen and pelvis on 02/13/2023. No hydronephrosis was noted. 2. Abdominal pain with concern for acute on chronic pancreatitis. GI consulted. 3. Benign hypertension. 4. History of kidney failure requiring temporary hemodialysis in 2017. Plan: Maintain IV fluids. Avoid nephrotoxins. Pain control. Add when necessary hydralazine. Continue to monitor renal function and urine output. Thank you for the consultation. I will continue to follow the patient with you during his hospital stay.
[2023-02-14] MEDS: polyethylene glycoL 3350 17 GM POWD.PACK PO SCH ×2 (13:21→15:19)
[2023-02-14] MEDS: PANTOPRAZOLE 40 MG/10 ML VIAL IVP SCH ×2 (13:25→20:50)
[2023-02-14] MEDS: LIPASE 20,000/PROTEASE 63,000/AMYLASE 84,000 PO SCH ×2 (13:26→20:50)
[2023-02-14] MEDS: GABAPENTIN 400 MG CAP PO SCH ×2 (15:15→20:50)
--- NOTE | 2023-02-14 15:43 | P.CONS ---
History of Present Illness - Reason for Consult Consult date: 02/14/23 dilated pancreatic duct Requesting physician: Yuri Wisdom - Chief Complaint abdominal pain, head pain - History of Present Illness This is a 47-year-old male who presented to the emergency department with complaints of left upper quadrant and lower quadrant abdominal pain with a past medical history of alcohol abuse, cirrhosis of the liver, and pancreatitis. Patient states her last one week duration he's had abdominal pain that has progressively gotten worse he started having nausea yesterday and this morning. Patient also states she is concerned that he hit his head on the covered in a satisfactory headaches since the accident. Patient has long-standing history of chronic pancreatitis. He follows with director of acquisitions out of [facility]. He has had biliary stents in the past which have been removed that was approximately 2 years ago for biliary leak. Also history of pancreatitis with pseudocyst. Patient currently denies any vomiting, states he had some mild nausea this morning, continues to have abdominal pain and requesting IV pain med ication every 3-4 hours. He is also reporting that he has not had a bowel movement in 2-3 days. He states that he gets very constipated and that he takes laxatives every 2 days. He has been nothing by mouth. Gastroenterology was consulted for dilated pancreatic duct. Labs WBC 11.5 hemoglobin 12.3 hematocrit 35 platelet count 221,000 INR 0.9 sodium 139 potassium 4.1 BUN 11 creatinine 1.3 lactic acid 2.8 total bilirubin 0.4 AST 35 ALT 25 alkaline phosphatase [address] of the abdomen and pelvis reviewed reporting small moderate free fluid in left upper quadrant adjacent to pancreatic tail, spleen and kidneys as well as in left paracolic gutter. Nonspecific. Exact etiology unclear. Previously seen moderate ascites has otherwise resolved. Dilation of the pancreatic duct within the tail of the pancreas. There is calcification in the central pancreas consistent with chronic pancreatitis. Mild acute pancreatitis cannot be excluded. Recommend correlation with serum amylase and lipase. Nonobstructive 3 mm calyceal calculus in the upper pole of the right kidney and 3 mm, S in the lower pole of left kidney. No hydronephrosis or ureterolithiasis is seen. There is fatty infiltration of the liver. Liver is mildly enlarged at 18.6 cm. No focal liver lesion seen. Appendix normal. Bowel loops are nondilated. No acute inflammatory changes seen involving the bowel. Review of Systems REVIEW OF SYSTEMS: CARDIOPULMONARY: No chest pain or shortness of breath. Gastrointestinal: Left upper and lower quadrant abdominal pain. Nausea with no vomiting. No hematemesis, coffee-ground emesis. No rectal bleeding, or melena. GENITOURINARY: No dysuria or hematuria. MUSCULOSKELETAL: Reports normal range of motion. SKIN: No rashes. No jaundice. ENDOCRINE: No chills, fevers. No excessive weight gain or loss. No polydipsia or polyuria. PSYCHIATRIC: Unremarkable. NEUROLOGY: No change in mental status. Denies dizziness, reports headache. P atient hit head on cabinet couple days ago states he nearly blacked out. ENT: Vision unremarkable. CONSTITUTIONAL: No recent weight loss. No fever, chills, night sweats. Past Medical History Past Medical History: Asthma, GERD/Reflux, Hypertension, Neurologic Disorder, Renal Disease Additional Past Medical History / Comment(s): ETOH with drawal with tremors/seizure, bronchitis, neuropathy R leg/R foot pain/limps, chronic low back pain/5 disc ruptured, 2017 pt had dialysis for 3 months but states kidneys are working fine now, insomnia. History of Any Multi-Drug Resistant Organisms: None Reported Past Surgical History: Orthopedic Surgery Additional Past Surgical History / Comment(s): Rhinoplasty, sinus scrapped, L lower eyelid laceration/repair, R 2nd toe metatarsopharangeal arthroplasty. PANCREATIC STENT INSERTION AND REMOVAL Past Anesthesia/Blood Transfusion Reactions: No Reported Reaction Past Psychological History: Anxiety, Depression Smoking Status: Current every day smoker, Vaper Past Alcohol Use History: None Reported Past Drug Use History: None Reported - Past Family History Mother Family Medical History: No Reported History Additional Family Medical History / Comment(s): Mother is healthy. Father Family Medical History: No Reported History Additional Family Medical History / Comment(s): Father is healthy Medications and Allergies Home Medications Medication Instructions Recorded Confirmed Type Gabapentin 800 mg PO TID 05/16/21 02/14/23 History Cyclobenzaprine [Flexeril] 10 mg PO BID PRN 02/14/23 02/14/23 History Ergocalciferol [Vitamin D2 (1250 1,250 mcg PO Q7D 02/14/23 02/14/23 History Mcg = 76010 Iu)] Ferrous Sulfate [Feosol] 325 mg PO DAILY 02/14/23 02/14/23 History Lipase/Protease/Amylase [Jayme Price 1 cap PO TID-W/MEALS 02/14/23 02/14/23 History 36,000 Unit Capsule] Sildenafil Citrate [Viagra] 100 mg PO DAILY PRN 02/14/23 02/14/23 History atenoloL [Tenormin] 25 mg PO DAILY 02/14/23 02/14/23 History Allergies Allergy/AdvReac Type Severity Reaction Status Date / Time No Known Allergies Allergy Verified 02/14/23 09:10 Physical Exam Vitals: Vital Signs Temp Pulse Pulse Resp BP BP Pulse Ox 02/14/23 08:25 98 F 77 20 154/86 98 02/14/23 03:29 79 18 02/14/23 03:14 98.7 F 79 18 141/76 98 02/13/23 22:00 98.9 F 111 H 20 153/79 99 Intake and Output 02/13/23 02/14/23 02/14/23 22:59 06:59 14:59 Other: Voiding Method Urinal Weight 83.915 kg 83.915 kg General appearance: The patient is alert, oriented, appears in no acute distress. HET: Head is normocephalic and atraumatic. Conjunctiva pink. Sclera anicteric. Neck: Supple without lymphadenopathy. Trachea midline. Heart: S1 S2. Regular rate and rhythm. Lungs: Clear to auscultation. Abdomen: Soft, left upper and lower quadrant tenderness, nondistended with bowel sounds. No guarding or rigidity. Skin: No rashes. No jaundice. Extremities: Normal skin color and turgor. No pedal edema. Neurological: No focal deficits. Alert and oriented x3. Results CBC & Chem 7: 02/13/23 23:05 02/13/23 23:05 Labs: Abnormal Lab Results - Last 24 Hours (Table) 02/13/23 02/13/23 02/13/23 Range/Units 23:05 23:05 23:05 WBC 11.5 H (3.8-10.6) k/uL RBC 4.00 L (4.30-5.90) m/uL Hgb 12.3 L (13.0-17.5) gm/dL Hct 35.7 L (39.0-53.0) % Eosinophils # 2.4 H (0-0.7) k/uL Creatinine 1.36 H (0.66-1.25) mg/dL Glucose 130 H (74-99) mg/dL Plasma Lactic Acid Valentino 2.8 H* (0.7-2.0) mmol/L Lipase 398 H (23-300) U/L Urine Protein (Negative) 02/13/23 Range/Units 23:06 WBC (3.8-10.6) k/uL RBC (4.30-5.90) m/uL Hgb (13.0-17.5) gm/dL Hct (39.0-53.0) % Eosinophils # (0-0.7) k/uL Creatinine (0.66-1.25) mg/dL Glucose (74-99) mg/dL Plasma Lactic Acid Valentino (0.7-2.0) mmol/L Lipase (23-300) U/L Urine Protein Trace H (Negative) Assessment and Plan (1) Acute on chronic pancreatitis Narrative/Plan: 47-year-old with a long-standing history of alcohol abuse who states that he drinks about every 6 months with a history of chronic alcoholic pancreatitis presented to the emergency department with complaints of left upper quadrant abdominal pain. Patient's computed tomography scan of the abdomen consistent with chronic pancreatitis. He does have a history of previous biliary stenting done approximately 2 years ago at [facility]. He does follow with a director of acquisitions from [facility] and is on Creon however has been out and has not been taking it. Overall LFTs are normal, lipase mildly elevated. Will treat symptomatically for uncomplicated acute on chronic pancreatitis. Current Visit: No Status: Acute Code(s): K85.90 - ACUTE PANCREATITIS WITHOUT NECROSIS OR INFECTION, UNSP; K86.1 - OTHER CHRONIC PANCREATITIS SNOMED Code(s): 503224016 (2) Alcoholic cirrhosis of liver Current Visit: Yes Status: Acute Code(s): K70.30 - ALCOHOLIC CIRRHOSIS OF LIVER WITHOUT ASCITES SNOMED Code(s): 539443613 (3) History of alcohol abuse Current Visit: No Status: Acute Code(s): F10.11 - ALCOHOL ABUSE, IN REMISSION SNOMED Code(s): 521320355 (4) Chronic constipation Current Visit: Yes Status: Acute Code(s): K59.09 - OTHER CONSTIPATION SNOMED Code(s): 719004782 Plan: 1. Continue symptomatic and supportive care 2. May have clear liquid diet 3. Pain medication as needed 4. Continue IV hydration 5. Will add MiraLAX daily, discussed with patient may titrate 1-2 times a day to improve bowel movements for chronic constipation 6. Encourage ambulation Thank you for this consultation, we will continue to follow. Dr. Bibiana Lees I agree with the dictator's note, documented as a scribe by Deepa Peña.
[2023-02-14 16:48] VITALS: RESP 16
[2023-02-15] MEDS: HYDROmorphone 1 MG/ML 1 ML SYRINGE IVP PRN ×3 (00:52→08:55)
[2023-02-15] MEDS ORDERED: ALPRAZolam 0.25 MG TAB PO STA (00:54)
[2023-02-15] MEDS ORDERED: MELATONIN 5 MG TABLET PO SCH (01:00)
[2023-02-15] MEDS: LIPASE 20,000/PROTEASE 63,000/AMYLASE 84,000 PO SCH ×2 (05:54→13:02)
[2023-02-15] MEDS: SODIUM CHLORIDE 0.9% 1,000 ML IV SCH (05:55)
[2023-02-15 06:38] LABS: African American GFR (CKD) >90 (>60 ml/min/1.73 sqM); Anion Gap 5 mmol/L; Blood Urea Nitrogen 5 mg/dL (9-20); Calcium 8.5 mg/dL (8.4-10.2); Carbon Dioxide 28 mmol/L (22-30); Chloride 107 mmol/L (98-107); Glucose 99 mg/dL (74-99); Non-African American GFR(CKD) >90 (>60 ml/min/1.73 sqM); Potassium 4.1 mmol/L (3.5-5.1); Sodium 140 mmol/L (137-145)
[2023-02-15 06:43] LABS: HCT 36.3 % (39.0-53.0); HGB 12.3 gm/dL (13.0-17.5); MCH 31.8 pg (25.0-35.0); MCHC 33.9 g/dL (31.0-37.0); MCV 93.9 fL (80.0-100.0); Mean Platelet Volume 7.2; Platelet Count 139 k/uL (150-450); RBC 3.87 m/uL (4.30-5.90); RDW 14.2 % (11.5-15.5); WBC 5.2 k/uL (3.8-10.6)
[2023-02-15 08:35] VITALS: BP 166/85; PULSE 66; TEMP 98
[2023-02-15] MEDS: GABAPENTIN 400 MG CAP PO SCH (08:49)
[2023-02-15] MEDS: polyethylene glycoL 3350 17 GM POWD.PACK PO SCH (08:49)
[2023-02-15] MEDS: PANTOPRAZOLE 40 MG/10 ML VIAL IVP SCH (08:49)
[2023-02-15] MEDS ORDERED: atenoloL 25 MG TAB PO SCH (09:00)
[2023-02-15 09:17] LABS: Basophils # (M) 0.05 k/uL (0-0.2); Eosinophils # (M) 1.51 k/uL (0-0.7); Lymphocytes # (M) 1.09 k/uL (1.0-4.8); Neutrophils # (M) 2.44 k/uL (1.3-7.7); Neutrophils % (M) 47 %; Nucleated Red Blood Cells 0 /100 WBC (0-0); Total Cells Counted 100
--- NOTE | 2023-02-15 13:04 | CT ---
EXAMINATION TYPE: CT brain wo con CT DLP: 995.50 mGycm, Automated exposure control for dose reduction was used. DATE OF EXAM: 02/15/2023 12:49 PM COMPARISON: None. Prior CT Brain from . CLINICAL INDICATION:Male, 47 years old with history of Abnormal gait, headache, Abnormal gait, headac he after hitting head x few days ago. TECHNIQUE: Brain: Multiple axial CT images of the brain were obtained without IV contrast. FINDINGS: Brain: Extra-axial spaces: No abnormal extra-axial fluid collections. Ventricular system: Within normal limits Cerebral parenchyma: No acute intraparenchymal hemorrhage or mass effect. The garsia-white junction is well differentiated. Cerebellum: Unremarkable. Mass effect: No evidence of midline shift. Intracranial vasculature: unremarkable Soft tissues: Normal. Calvarium/osseous structures: No depressed skull fracture. Paranasal sinuses and mastoid air cells: Mild scattered paranasal sinus disease. The sphenoid sinuses are clear. The mastoid air cells are clear. Visualized orbits: Orbital contents are intact. IMPRESSION: 1. No acute intracranial process. 2. Mild paranasal sinus disease.
--- NOTE | 2023-02-15 15:36 | P.PN ---
Subjective Progress Note Date: 02/15/23 Principal diagnosis: Pancreatitis This is a 47-year-old male who presented to the emergency department with complaints of left upper quadrant and lower quadrant abdominal pain with a past medical history of alcohol abuse, cirrhosis of the liver, and pancreatitis. Patient states her last one week duration he's had abdominal pain that has progressively gotten worse he started having nausea yesterday and this morning. Patient also states she is concerned that he hit his head on the covered in a satisfactory headaches since the accident. Patient has long-standing history of chronic pancreatitis. He follows with grants assistant out of [facility]. He has had biliary stents in the past which have been removed that was approximately 2 years ago for biliary leak. Also history of pancreatitis with pseudocyst. Patient currently denies any vomiting, states he had some mild nausea this morning, continues to have abdominal pain and requesting IV pain medication every 3-4 hours. He is also reporting that he has not had a bowel movement in 2-3 days. He states that he gets very constipated and that he takes laxatives every 2 days. He has been nothing by mouth. Gastroenterology was consulted for dilated pancreatic duct. Labs WBC 11.5 hemoglobin 12.3 hematocrit 35 platelet count 221,000 INR 0.9 sodium 139 potassium 4.1 BUN 11 creatinine 1.3 lactic acid 2.8 total bilirubin 0.4 AST 35 ALT 25 alkaline phosphatase [address] of the abdomen and pelvis reviewed reporting small moderate free fluid in left upper quadrant adjacent to pancreatic tail, spleen and kidneys as well as in left paracolic gutter. Nonspecific. Exact etiology unclear. Previously seen moderate ascites has otherwise resolved. Dilation of the pancreatic duct within the tail of the pancreas. There is calcification in the central pancreas consistent with chronic pancreatitis. Mild acute pancreatitis cannot be excluded. Recommend correlation with serum amylase and lipase. Nonobstructive 3 mm calyceal calculus in the upper pole of the right kidney and 3 mm, S in the lower pole of left kidney. No hydronephrosis or ureterolithiasis is seen. There is fatty infiltration of the liver. Liver is mildly enlarged at 18.6 cm. No focal liver lesion seen. Appendix normal. Bowel loops are nondilated. No acute inflammatory changes seen involving the bowel. 02/15/2023: Patient seen and examined today as a follow-up. He states he is feeling better. He is tolerating clear liquid diet and would like to advance his diet. No fevers or chills. No nausea or vomiting. Objective - Vital Signs Vital signs: Vital Signs Temp 98.0 F 02/15/23 07:00 Pulse 66 02/15/23 07:00 Resp 16 02/15/23 07:00 BP 166/85 02/15/23 07:00 Pulse Ox 100 02/15/23 07:00 FiO2 Intake & Output 02/14/23 02/15/23 02/15/23 18:59 06:59 18:59 Intake Total 360 Balance 360 Intake: Oral 360 Other: Voiding Method Toilet # Voids 2 # Bowel Movements 0 - Exam General appearance: The patient is alert, oriented, appears in no acute distress. HET: Head is normocephalic and atraumatic. Conjunctiva pink. Sclera anicteric. Neck: Supple without lymphadenopathy. Abdomen: Soft, nontender, nondistended with bowel sounds. No guarding or rigidity. Extremities: Normal skin color and turgor. No pedal edema Skin: No rashes, no jaundice Neurological: No focal deficits. Alert and oriented. - Labs CBC & Chem 7: 02/15/23 06:00 02/15/23 06:00 Labs: Abnormal Lab Results - Last 24 Hours (Table) 02/14/23 02/15/23 02/15/23 Range/Units 18:36 06:00 06:00 RBC 3.87 L (4.30-5.90) m/uL Hgb 12.3 L (13.0-17.5) gm/dL Hct 36.3 L (39.0-53.0) % Plt Count 139 L (150-450) k/uL BUN 5 L (9-20) mg/dL Plasma Lactic Acid Valentino 2.2 H* (0.7-2.0) mmol/L Assessment and Plan (1) Acute on chronic pancreatitis Narrative/Plan: 47-year-old with a long-standing history of alcohol abuse who states that he drinks about every 6 months with a history of chronic alcoholic pancreatitis presented to the emergency department with complaints of left upper quadrant abdominal pain. Patient's computed tomography scan of the abdomen consistent with chronic pancreatitis. He does have a history of previous biliary stenting done approximately 2 years ago at [facility]. He does follow with a grants assistant from [facility] and is on Creon however has been out and has not been taking it. Overall LFTs are normal, lipase mildly elevated. Will treat symptomatically for uncomplicated acute on chronic pancreatitis. Uncomplicated acute on chronic pancreatitis. Patient's symptoms improving. Current Visit: No Status: Acute Code(s): K85.90 - ACUTE PANCREATITIS WITHOUT NECROSIS OR INFECTION, UNSP; K86.1 - OTHER CHRONIC PANCREATITIS SNOMED Code(s): 593787449 (2) Alcoholic cirrhosis of liver Current Visit: Yes Status: Acute Code(s): K70.30 - ALCOHOLIC CIRRHOSIS OF LIVER WITHOUT ASCITES SNOMED Code(s): 005253227 (3) History of alcohol abuse Current Visit: No Status: Acute Code(s): F10.11 - ALCOHOL ABUSE, IN REMISSION SNOMED Code(s): 322226434 (4) Chronic constipation Current Visit: Yes Status: Acute Code(s): K59.09 - OTHER CONSTIPATION SNOMED Code(s): 818927081 Plan: 1. Continue symptomatic and supportive care 2. Advance to low-fat diet 3. Pain medication as needed 4. Encouraged ambulation 5. Continue MiraLAX daily, discussed with patient may titrate 1-2 times a day to improve bowel movements for chronic constipation 6. If patient tolerates diet he may be cleared for discharge from gastroenterology Thank you for this consultation, we will continue to follow. Dr. Bibiana Lees I agree with the dictator's note, documented as a scribe by Deepa Peña. by
--- NOTE | 2023-02-15 17:22 | P.PN ---
Subjective Progress Note Date: 02/15/23 Received a text from Jessie Duke at 3:11 pm to cancel the consult. Seth Costa Objective - Vital Signs Vital signs: Vital Signs Temp 98.0 F 02/15/23 07:00 Pulse 66 02/15/23 07:00 Resp 16 02/15/23 07:00 BP 166/85 02/15/23 07:00 Pulse Ox 100 02/15/23 07:00 FiO2 Intake & Output 02/14/23 02/15/23 02/15/23 18:59 06:59 18:59 Intake Total 360 1432 Balance 360 1432 Intake: Oral 360 1432 Other: Voiding Method Toilet Toilet # Voids 2 3 # Bowel Movements 0 - Labs CBC & Chem 7: 02/15/23 06:00 02/15/23 06:00 Labs: Abnormal Lab Results - Last 24 Hours (Table) 02/14/23 02/15/23 02/15/23 Range/Units 18:36 06:00 06:00 RBC 3.87 L (4.30-5.90) m/uL Hgb 12.3 L (13.0-17.5) gm/dL Hct 36.3 L (39.0-53.0) % Plt Count 139 L (150-450) k/uL Eosinophils # (Manual) 1.51 H (0-0.7) k/uL BUN 5 L (9-20) mg/dL Plasma Lactic Acid Valentino 2.2 H* (0.7-2.0) mmol/L
--- NOTE | 2023-02-16 23:32 | P.DS ---
Providers Date of admission: 02/14/23 01:54 Attending physician: Vicente Trinidad Consults: 02/14/23 02:46 Consult Physician Urgent Consulting Provider: Gabriella Lees Consult Reason/Comments: Dilated pancreatic duct Do you want consulting provider notified?: Yes, Notify in am 02/14/23 11:18 Consult Physician Routine Consulting Provider: Bruno Cotter Consult Reason/Comments: DEBI Do you want consulting provider notified?: Yes 02/15/23 13:05 Consult Physician Routine Consulting Provider: Seth Costa Consult Reason/Comments: abnormal gait headache delayed speech s/p hitting head Do you want consulting provider notified?: Yes Primary care physician: MARIBEL Laws Hospital Course: Final Diagnosis 1 abdominal pain secondary to acute on chronic pancreatitis, patient had dilated pancreatic that because of his GI was consulted and recommending conservative management -Acute renal failure likely due to nausea and decreased appetite, resolved -Leukocytosis: Secondary to assessment #1 -Hypertension -Gastroesophageal reflux disease -Chronic alcohol use and alcoholic liver cirrhosis -Headache/confusion after hitting his head likely due a concussion. Full Code Discharge Disposition Patient is stable for discharge home. Recommending to limit physical and strenuous activity for the next week. Patient to continue on creon supplementation and this has been refilled for him. Discussed alcohol cessation. Patient is agreeable. Recommending to see his GI specialist out of [place] on discharge and also his PCP. Hospital Course This is a 47-year-old male with history of hypertension, GERD, alcohol, liver cirrhosis and chronic pancreatitis. He has had biliary stents in the past which have been removed that was approximately 2 years ago for biliary leak. Patient has issues with pancreatic duct and follows with the fixer supervisor at [facility]. Patient presented with compensative epigastric abdominal pain, and left upper quadrant pain, severe pain with a history of multiple episodes of pancreatitis in the past. Patient's pain is sharp in nature and nonradiating mostly in the epigastric and left upper quadrant areas. CT of the abdomen and pelvis reviewed reporting small moderate free fluid in left upper quadrant adjacent to pancreatic tail, spleen and kidneys as well as in left paracolic gutter. Nonspecific. Exact etiology unclear. Previously seen moderate ascites has otherwise resolved. Dilation of the pancreatic duct within the tail of the pancreas. There is calcification in the central pancreas consistent with chronic pancreatitis. Mild acute pancreatitis cannot be excluded. Recommend correlation with serum amylase and lipase. Nonobstructive 3 mm calyceal calculus in the upper pole of the right kidney and 3 mm, S in the lower pole of left kidney. No hydronephrosis or ureterolithiasis is seen. There is fatty infiltration of the liver. Liver is mildly enlarged at 18.6 cm. No focal liver lesion seen. Appendix normal. Bowel loops are nondilated. No acute inflammatory changes seen involving the bowel. Patient's lipase went up to 398. Patient the also has elevated creatinine of 1.36. Patient is admitted to the hospital and GI placed on consultation. Patient does have mild leukocytosis. Patient also presents with nausea. Patient does report hitting his head earlier this week and since than has not felt himself, has had mild headache and does complain of slightly delayed speech and unsteady gait. He had brain CT done which is negative for acute findings and patient likely has concussion. His symptoms have been improving since the incident, and currently recommending to avoid any strenous activity /physical activity for the next week. White count has normalized to 5.2, BUN 5/creatinine 0.86. Patient is currently evaluated up ambulating in room. No focal neurological deficits noted. He is alert x 3. Denying abdominal pain at this time, no chest pain and no shortness of breath. Lungs are clear S1 S2 auscultated and abdomen is soft and nontender. Patient cleared for discharge with above mentioned recommendations. Please see medication reconciliation for a list of current recommendations. Thank you for allowing us to participate in the care of this patient. The impression and plan of care has been dictated by Isaura Reina, Nurse Practitioner as directed. Dr. Charu MD I have performed a history and physical examination and medical decision making of this patient, discussed the same with the dictator, and agree with the dictators assessment and plan as written, documented as a scribe. Based on total visit time, I have performed more than 50% of this visit. Patient Condition at Discharge: Stable Plan - Discharge Summary Discharge Rx Participant: No New Discharge Prescriptions: Continue Ergocalciferol [Vitamin D2 (1250 Mcg = 47061 Iu)] 1,250 mcg PO Q7D Ferrous Sulfate [Iron (65 MG Elemental)] 325 mg PO DAILY Cyclobenzaprine [Flexeril] 10 mg PO BID PRN PRN Reason: Muscle Spasm Gabapentin 800 mg PO TID atenoloL [Tenormin] 25 mg PO DAILY Sildenafil Citrate [Viagra] 100 mg PO DAILY PRN PRN Reason: male ED Lipase/Protease/Amylase [Jayme Price 36,000 Unit Capsule] 1 cap PO TID-W/MEALS #90 cap Discharge Medication List Gabapentin 800 mg PO TID 05/16/21 [History] Cyclobenzaprine [Flexeril] 10 mg PO BID PRN 02/14/23 [History] Ergocalciferol [Vitamin D2 (1250 Mcg = 11252 Iu)] 1,250 mcg PO Q7D 02/14/23 [History] Ferrous Sulfate [Iron (65 MG Elemental)] 325 mg PO DAILY 02/14/23 [History] Sildenafil Citrate [Viagra] 100 mg PO DAILY PRN 02/14/23 [History] atenoloL [Tenormin] 25 mg PO DAILY 02/14/23 [History] Lipase/Protease/Amylase [Jayme Price 36,000 Unit Capsule] 1 cap PO TID-W/MEALS #90 cap 02/15/23 [Rx] Follow up Appointment(s)/Referral(s): Gabriella Lees MD [STAFF PHYSICIAN] - 02/26/23 4:00 pm Diego Oleary NPC [Primary Care Provider] - 1-2 days Bruno Cotter DO [STAFF PHYSICIAN] - As Needed Ambulatory/Diagnostic Orders: Basic Metabolic Panel [LAB.AMB] Time Frame: 3 Days, Location: None Selected Patient Instructions/Handouts: Concussion (DC) Activity/Diet/Wound Care/Special Instructions: Continue on your pancreatic enzymes three times a day Repeat labs in 2 to 3 days Follow up with GI services Dr. Bibiana Lees in 1 week or follow up with your own GI specialist Avoid physical activity for the next week, notify PCP return to [facility] for worsening neuro symptoms. Brain CT is negative for acute findings. Discharge Disposition: HOME SELF-CARE
== END 2023-02-15 16:27 | disposition home or self-care (01) ==
LOC: EC 21:57 → 6NMEDSUR 02-14 01:54
PROVIDERS: ADMIT Hospitalist; ATTEND Hospitalist
DX: K85.90 Acute pancreatitis without necrosis or infection, unspecified (principal); K86.1 Other chronic pancreatitis; K86.89 Other specified diseases of pancreas; K70.30 Alcoholic cirrhosis of liver without ascites; F10.10 Alcohol abuse, uncomplicated; K59.09 Other constipation; J45.909 Unspecified asthma, uncomplicated; K21.9 Gastro-esophageal reflux disease without esophagitis; I10 Essential (primary) hypertension; G62.9 Polyneuropathy, unspecified; G89.29 Other chronic pain; M54.50 Low back pain, unspecified; F41.9 Anxiety disorder, unspecified; D72.829 Elevated white blood cell count, unspecified; F32.A Depression, unspecified; N17.9 Acute kidney failure, unspecified; R51.9 Headache, unspecified; R41.0 Disorientation, unspecified; F17.290 Nicotine dependence, other tobacco product, uncomplicated; Z79.01 Long term (current) use of anticoagulants; Z79.899 Other long term (current) drug therapy; Z79.51 Long term (current) use of inhaled steroids; Z79.1 Long term (current) use of non-steroidal anti-inflammatories (NSAID)
CPT/HCPCS: 96361 ×3; 96375 ×2; 96376 ×3; 96374; 99285; 36415; 92523; 80053; 80048; 82150; 83605 ×2; 83690; 83735; 85025 ×2; 85610; 85730; 81003; 70450; 74177; G0378 ×2; J0360; J2405 ×2; J1170 ×2; J1885 ×2; C9113 ×2; Q9967

== ENCOUNTER 2023-03-04 15:51 | Emergency (ER) | payer OTHER ==
[2023-03-04 15:59] VITALS: BP 137/89; PULSE 101; RESP 18; TEMP 98.3
[2023-03-04] MEDS ORDERED: SODIUM CHLORIDE 0.9% 1,000 ML IV STA (16:13)
[2023-03-04] MEDS ORDERED: KETOROLAC 15 MG/ML 1 ML VIAL IVP STA (16:13)
[2023-03-04] MEDS ORDERED: ONDANSETRON 4 MG/2 ML VIAL IVP STA (16:35)
[2023-03-04 16:42] LABS: Basophils % (A) 0 %; Eosinophils # (A) 0.1 k/uL (0-0.7); Eosinophils % (A) 1 %; HCT 33.5 % (39.0-53.0); Lymphocytes # (A) 0.9 k/uL (1.0-4.8); Lymphocytes % (A) 8 %; MCH 31.1 pg (25.0-35.0); MCHC 32.9 g/dL (31.0-37.0); MCV 94.7 fL (80.0-100.0); Mean Platelet Volume 8.9; Monocytes # (A) 0.5 k/uL (0-1.0); Monocytes % (A) 4 %; Neutrophils # (A) 9.1 k/uL (1.3-7.7); Neutrophils % (A) 85 %; Platelet Count 244 k/uL (150-450); RBC 3.53 m/uL (4.30-5.90); RDW 14.3 % (11.5-15.5); WBC 10.8 k/uL (3.8-10.6)
[2023-03-04 17:05] LABS: ALT 21 U/L (4-49); African American GFR (CKD) >90 (>60 ml/min/1.73 sqM); Anion Gap 10 mmol/L; Blood Urea Nitrogen 13 mg/dL (9-20); Calcium 8.7 mg/dL (8.4-10.2); Carbon Dioxide 24 mmol/L (22-30); Chloride 103 mmol/L (98-107); Glucose 100 mg/dL (74-99); Lipase 65 U/L (23-300); Non-African American GFR(CKD) >90 (>60 ml/min/1.73 sqM); Sodium 137 mmol/L (137-145); Total Bilirubin 0.9 mg/dL (0.2-1.3)
[2023-03-04 17:08] LABS: Potassium 4.7 mmol/L (3.5-5.1)
[2023-03-04 17:09] LABS: AST 32 U/L (17-59); Albumin 3.3 g/dL (3.5-5.0); Alkaline Phosphatase 191 U/L (38-126); Total Protein 6.6 g/dL (6.3-8.2)
[2023-03-04 17:45] LABS: Appearance,Urine Clear (Clear); Bilirubin,Urine Negative (Negative); Blood,Urine Negative (Negative); Color,Urine Yellow; Glucose,Urine (UA) Negative (Negative); Leukocyte Esterase,Urine Negative (Negative); Nitrite,Urine Negative (Negative); Protein,Urine Trace (Negative); Urobilinogen,Urine <2.0 mg/dL (<2.0)
--- NOTE | 2023-03-04 17:50 | CT ---
EXAMINATION TYPE: CT abdomen pelvis w con DATE OF EXAM: 03/04/2023 COMPARISON: 02/14/2023 HISTORY: Left sided abdominal pain, hx of hernia CT DLP: 1027.2 mGycm Automated exposure control for dose reduction was used. TECHNIQUE: Helical acquisition of images was performed from the lung bases through the pelvis. CONTRAST: Performed without Oral Contrast and with IV Contrast, patient injected with 100ml mL of Isovue 300. FINDINGS: The lung bases are clear. The gallbladder is normal without gallstones, distention or pericholecystic fluid. There is no biliar y ductal dilatation. There is no focal mass or organomegaly involving the liver or adrenal glands. There is a calcification in the pancreas and is a calcification within the tail there is a markedly d ilated pancreatic duct. There is fluid surrounding enlarged spleen and extending down into the left p aracolic gutter where there are multiple loculated fluid collections which have increased in the inte rval since the prior study. Findings raise the question of pancreatitis and clinical correlation hector g with left correlation is recommended. The kidneys excrete contrast promptly and symmetrically and there is no solid renal mass or hydroneph rosis. The caliber the abdominal aorta is normal. The bowel loops are normal in caliber is no dilatation or obstruction. There is no free intraperitone al air or fluid. No pelvic mass, free fluid the osseous structures are intact. IMPRESSION: 1. Interval increase in multiple loculated fluid collections within the left side of the peritoneal c avity extending into the left paracolic gutter. The fluid collections appear to extend from the dista l aspect pancreatic tail and the pancreatic tail duct is markedly dilated. The findings suggest acute pancreatitis and clinical correlation is recommended. 2. Increasing splenomegaly compared to previous
[2023-03-04 17:51] LABS: Ketones,Urine 2+ (Negative)
[2023-03-04] MEDS ORDERED: PEG 3350 (236 GM/BTL) + LYTES 4,000 ML BOTTLE PO ONE (18:28)
--- NOTE | 2023-03-04 18:31 | ED ---
Abdominal Pain HPI - General Chief Complaint: Abdominal Pain Stated Complaint: hernia Time Seen by Provider: 03/04/23 16:13 Source: patient Mode of arrival: wheelchair - History of Present Illness Initial Comments: Patient is a 47-year-old male who presents emergency department for abdominal pain. Patient is concerned he has a hernia. States last week he was at [facility] for dilated pancreatic duct and he was told he had a hernia on CT. Patient states he was doing lawn work outside yesterday when he fell a pop in his left upper abdomen causing pain. Patient believes the hernia is causing him pain. He has history of bilateral inguinal hernias which were repaired by Dr. Figueroa. No diarrhea, blood in stool. Does report constipation no bowel movement in 4 days. He has tried several OTC constipation meds. Reports nausea without vomiting. Denies fever and chills. No change in oral intake. Patient has surgical consult for pancreatic procedure at [facility] next week. - Related Data Home Medications Medication Instructions Recorded Confirmed Gabapentin 800 mg PO TID 05/16/21 02/14/23 Cyclobenzaprine [Flexeril] 10 mg PO BID PRN 02/14/23 02/14/23 Ergocalciferol [Vitamin D2 (1250 1,250 mcg PO Q7D 02/14/23 02/14/23 Mcg = 62940 Iu)] Ferrous Sulfate [Iron (65 MG 325 mg PO DAILY 02/14/23 02/14/23 Elemental)] Sildenafil Citrate [Viagra] 100 mg PO DAILY PRN 02/14/23 02/14/23 atenoloL [Tenormin] 25 mg PO DAILY 02/14/23 02/14/23 Previous Rx's Medication Instructions Recorded Lipase/Protease/Amylase [Jayme Price 1 cap PO TID-W/MEALS #90 cap 02/15/23 36,000 Unit Capsule] HYDROcodone/APAP 7.5-325MG [Valentine 1 tab PO Q4H PRN 3 Days #18 tab 03/04/23 7.5-325] Ondansetron Odt [Zofran Odt] 4 mg PO Q8HR PRN #10 tab 03/04/23 Allergies Allergy/AdvReac Type Severity Reaction Status Date / Time No Known Allergies Allergy Verified 03/04/23 15:59 Review of Systems ROS Statement: Those systems with pertinent positive or pertinent negative responses have been documented in the HPI. ROS Other: All systems not noted in ROS Statement are negative. Past Medical History Past Medical History: Asthma, GERD/Reflux, Hypertension, Neurologic Disorder, Renal Disease Additional Past Medical History / Comment(s): ETOH with drawal with tremors/seizure, bronchitis, neuropathy R leg/R foot pain/limps, chronic low back pain/5 disc ruptured, 2017 pt had dialysis for 3 months but states kidneys are working fine now, insomnia. History of Any Multi-Drug Resistant Organisms: None Reported Past Surgical History: Orthopedic Surgery Additional Past Surgical History / Comment(s): Rhinoplasty, sinus scrapped, L lower eyelid laceration/repair, R 2nd toe metatarsopharangeal arthroplasty. PANCREATIC STENT INSERTION AND REMOVAL Past Anesthesia/Blood Transfusion Reactions: No Reported Reaction Past Psychological History: Anxiety, Depression Smoking Status: Vaper Past Alcohol Use History: None Reported Past Drug Use History: None Reported - Past Family History Mother Family Medical History: No Reported History Additional Family Medical History / Comment(s): Mother is healthy. Father Family Medical History: No Reported History Additional Family Medical History / Comment(s): Father is healthy General Exam General appearance: alert, in no apparent distress Respiratory exam: Present: normal lung sounds bilaterally. Absent: respiratory distress, wheezes, rales, rhonchi, stridor Cardiovascular Exam: Present: regular rate, normal rhythm, normal heart sounds. Absent: systolic murmur, diastolic murmur, rubs, gallop, clicks GI/Abdominal exam: Present: soft, tenderness (LUQ mild ), normal bowel sounds, hernia (umbilical soft non tender no overlying skin changes). Absent: distended, guarding, rebound, rigid Neurological exam: Present: alert, oriented X3, CN II-XII intact Psychiatric exam: Present: normal affect, normal mood Skin exam: Present: warm, dry, intact, normal color. Absent: rash Course Vital Signs 03/04/23 15:56 Temperature 98.3 F Pulse Rate 101 H Respiratory 18 Rate Blood Pressure 137/89 O2 Sat by Pulse 100 Oximetry Medical Decision Making - Medical Decision Making Was pt. sent in by a medical professional or institution (, PA, PENSIONHOLDER INFORMATION CLERK, urgent care, hospital, or correction...) When possible be specific @ -No Did you speak to anyone other than the patient for history (EMS, parent, family, police, friend...)? What history was obtained from this source @ -No Did you review nursing and triage notes (agree or disagree)? Why? @ -I reviewed and agree with nursing and triage notes Were old charts reviewed (outside hosp., previous admission, EMS record, old EKG, old radiological studies, urgent care reports/EKG's, correction records)? Report findings @ -No old charts were reviewed Differential Diagnosis (chest pain, altered mental status, abdominal pain women, abdominal pain men, vaginal bleeding, weakness, fever, dyspnea, syncope, headache, dizziness, GI bleed, back pain, seizure, CVA, palpatations, mental health)? @ -Differential Abdominal Pain Men: Appendicitis, cholecystitis, diverticulosis, ischemic bowel, pancreatitis, hepatitis, UTI, gastroenteritis, AAA, incarcerated hernia, bowel obstruction, constipation, inflammatory bowel, hepatitis, peptic ulcer disease, splenic infarction, perforated viscus, testicular torsion, this is not meant to be an all-inclusive list EKG interpreted by me (3pts min.). @ -None X-rays interpreted by me (1pt min.). @ -None done CT interpreted by me (1pt min.). @ -Interval increase of multiple loculated fluid collections within the left side of the peritoneal cavity extending into the left paracolic gutter. Pancreatic tail duct is markedly dilated. Increasing splenomegaly U/S interpreted by me (1pt. min.). @ -None done What testing was considered but not performed or refused? (CT, X-rays, U/S, labs)? Why? @ -None What meds were considered but not given or refused? Why? @ -None Did you discuss the management of the patient with other professionals (professionals i.e. , PA, PENSIONHOLDER INFORMATION CLERK, lab, RT, psych nurse, addiction social worker, hat cone inspector, teacher, civilian jail officer, case making machine operator)? Give summary @ -No Was smoking cessation discussed for >3mins.? @ -No Was critical care preformed (if so, how long)? @ -No Were there social determinants of health that impacted care today? How? (Homelessness, low income, unemployed, alcoholism, drug addiction, transportation, low edu. Level, literacy, decrease access to med. care, snf, rehab)? @ -No Was there de-escalation of care discussed even if they declined (Discuss DNR or withdrawal of care, Hospice)? DNR status @ -No What co-morbidities impacted this encounter? (DM, HTN, Smoking, COPD, CAD, Cancer, CVA, ARF, Chemo, Hep., AIDS, mental health diagnosis, sleep apnea, morbid obesity)? @ -None Was patient admitted / discharged? Hospital course, mention meds given and route, prescriptions, significant lab abnormalities, going to OR and other pertinent info. @ -Discharged. Patient has small umbilical hernia which is nontender, soft, reducible. CT does not show evidence of hernia but does show interval increase of multiple loculated fluid collections within the left side of the peritoneal cavity extending into the left paracolic gutter. Pancreatic tail is markedly dilated. There is increasing splenomegaly. Pain and nausea controlled. I suspect symptoms are related to pancreatic etiology. Discussed disposition options we do not have GI patient states Dr. Lees is who referred him to [facility]. Offered admission for pain control jean ent declines. He is to follow up with [facility] as planned he will be discharged with [facility] for constipation and will increase water/fiber intake Undiagnosed new problem with uncertain prognosis? @ -No Drug Therapy requiring intensive monitoring for toxicity (Heparin, Nitro, Insulin, Cardizem)? @ -No Were any procedures done? @ -No Diagnosis/symptom? @ -abdominal pain, nausea Acute, or Chronic, or Acute on Chronic? @ -acute Uncomplicated (without systemic symptoms) or Complicated (systemic symptoms)? @ -uncomplicated Side effects of treatment? @ -No Exacerbation, Progression, or Severe Exacerbation? @ -No Poses a threat to life or bodily function? How? (Chest pain, [place], [place], pneumonia, PE, COPD, DKA, ARF, appy, cholecystitis, CVA, Diverticulitis, Homicidal, Suici joy, threat to staff... and all critical care pts) @ -No Dr. Velez is my attending - Lab Data Result diagrams: 03/04/23 16:33 03/04/23 16:33 Lab Results 03/04/23 03/04/23 03/04/23 Range/Units 16:33 16:33 16:33 WBC 10.8 H (3.8-10.6) k/uL RBC 3.53 L (4.30-5.90) m/uL Hgb 11.0 L (13.0-17.5) gm/dL Hct 33.5 L (39.0-53.0) % MCV 94.7 (80.0-100.0) fL MCH 31.1 (25.0-35.0) pg MCHC 32.9 (31.0-37.0) g/dL RDW 14.3 (11.5-15.5) % Plt Count 244 (150-450) k/uL MPV 8.9 Neutrophils % 85 % Lymphocytes % 8 % Monocytes % 4 % Eosinophils % 1 % Basophils % 0 % Neutrophils # 9.1 H (1.3-7.7) k/uL Lymphocytes # 0.9 L (1.0-4.8) k/uL Monocytes # 0.5 (0-1.0) k/uL Eosinophils # 0.1 (0-0.7) k/uL Basophils # 0.0 (0-0.2) k/uL Sodium 137 (137-145) mmol/L Potassium 4.7 (3.5-5.1) mmol/L Chloride 103 (98-107) mmol/L Carbon Dioxide 24 (22-30) mmol/L Anion Gap 10 mmol/L BUN 13 (9-20) mg/dL Creatinine 0.95 (0.66-1.25) mg/dL Est GFR (CKD-EPI)AfAm >90 (>60 ml/min/1.73 sqM) Est GFR (CKD-EPI)NonAf >90 (>60 ml/min/1.73 sqM) Glucose 100 H (74-99) mg/dL Plasma Lactic Acid Valentino (0.7-2.0) mmol/L Calcium 8.7 (8.4-10.2) mg/dL Total Bilirubin 0.9 (0.2-1.3) mg/dL AST 32 (17-59) U/L ALT 21 (4-49) U/L Alkaline Phosphatase 191 H (38-126) U/L Total Protein 6.6 (6.3-8.2) g/dL Albumin 3.3 L (3.5-5.0) g/dL Lipase 65 (23-300) U/L Urine Color Yellow Urine Appearance Clear (Clear) Urine pH 6.0 (5.0-8.0) Ur Specific Harrison 1.020 (1.001-1.035) Urine Protein Trace H (Negative) Urine Glucose (UA) Negative (Negative) Urine Ketones 2+ H (Negative) Urine Blood Negative (Negative) Urine Nitrite Negative (Negative) Urine Bilirubin Negative (Negative) Urine Urobilinogen <2.0 (<2.0) mg/dL Ur Leukocyte Esterase Negative (Negative) 03/04/23 Range/Units 16:33 WBC (3.8-10.6) k/uL RBC (4.30-5.90) m/uL Hgb (13.0-17.5) gm/dL Hct (39.0-53.0) % MCV (80.0-100.0) fL MCH (25.0-35.0) pg MCHC (31.0-37.0) g/dL RDW (11.5-15.5) % Plt Count (150-450) k/uL MPV Neutrophils % % Lymphocytes % % Monocytes % % Eosinophils % % Basophils % % Neutrophils # (1.3-7.7) k/uL Lymphocytes # (1.0-4.8) k/uL Monocytes # (0-1.0) k/uL Eosinophils # (0-0.7) k/uL Basophils # (0-0.2) k/uL Sodium (137-145) mmol/L Potassium (3.5-5.1) mmol/L Chloride (98-107) mmol/L Carbon Dioxide (22-30) mmol/L Anion Gap mmol/L BUN (9-20) mg/dL Creatinine (0.66-1.25) mg/dL Est GFR (CKD-EPI)AfAm (>60 ml/min/1.73 sqM) Est GFR (CKD-EPI)NonAf (>60 ml/min/1.73 sqM) Glucose (74-99) mg/dL Plasma Lactic Acid Valention 1.0 (0.7-2.0) mmol/L Calcium (8.4-10.2) mg/dL Total Bilirubin (0.2-1.3) mg/dL AST (17-59) U/L ALT (4-49) U/L Alkaline Phosphatase (38-126) U/L Total Protein (6.3-8.2) g/dL Albumin (3.5-5.0) g/dL Lipase (23-300) U/L Urine Color Urine Appearance (Clear) Urine pH (5.0-8.0) Ur Specific Harrison (1.001-1.035) Urine Protein (Negative) Urine Glucose (UA) (Negative) Urine Ketones (Negative) Urine Blood (Negative) Urine Nitrite (Negative) Urine Bilirubin (Negative) Urine Urobilinogen (<2.0) mg/dL Ur Leukocyte Esterase (Negative) Disposition Clinical Impression: Abdominal pain, Nausea Disposition: HOME SELF-CARE Condition: Good Additional Instructions: Take medication as directed. Alternate Tylenol and Motrin are 3-4 hours for pain. Silvia call for severe pain. Do not take Valentine and Tylenol together. Drink half of the GoLYTELY as needed for constipation. Continue to drink water or drinking GoLYTELY. Follow-up with [facility] as planned. Return to emergency department if you exeperience new, concerning, or worsening symptoms. Prescriptions: HYDROcodone/APAP 7.5-325MG [Valentine 7.5-325] 1 tab PO Q4H PRN 3 Days #18 tab PRN Reason: Pain Ondansetron Odt [Zofran Odt] 4 mg PO Q8HR PRN #10 tab PRN Reason: Nausea Is patient prescribed a controlled substance at d/c from ED?: No Referrals: Silvia Rios MD [Primary Care Provider] - 1-2 days
== END 2023-03-04 19:01 | disposition home or self-care (01) ==
LOC: EC 15:51
DX: K42.9 Umbilical hernia without obstruction or gangrene (principal); I10 Essential (primary) hypertension; J45.909 Unspecified asthma, uncomplicated; G62.9 Polyneuropathy, unspecified; F17.290 Nicotine dependence, other tobacco product, uncomplicated; Z79.899 Other long term (current) drug therapy
CPT/HCPCS: 36415; 80053; 83605; 83690; 85025; 81003; 74177; 99284; 96374; 96375; 96361; J2405; J1885; Q9967

== ENCOUNTER 2023-03-15 11:54 | Emergency (ER) | payer OTHER ==
[2023-03-15] MEDS ORDERED: SODIUM CHLORIDE 0.9% 1,000 ML IV STA ×2 (12:29)
[2023-03-15] MEDS ORDERED: ONDANSETRON 4 MG/2 ML VIAL IVP STA (12:29)
[2023-03-15] MEDS ORDERED: MORPHINE SULFATE 4 MG/ML SYRINGE IV STA (12:31)
--- NOTE | 2023-03-15 12:38 | ED ---
Abdominal Pain HPI - General Chief Complaint: Abdominal Pain Stated Complaint: Abd Pain Time Seen by Provider: 03/15/23 12:18 Source: patient Mode of arrival: wheelchair Limitations: no limitations - History of Present Illness Initial Comments: This 47-year-old male presents with complaint of some abdominal pain. He states that he has had this for approximately one month or more. He relates that it is in his midepigastric region and his left lower quadrant. He states that it is fairly severe in nature. He does have a long history of pancreatitis and was just hospitalized for 3 days that [facility]. He was discharged approximately one and a half to 2 weeks ago. He states that his symptoms have persisted since that time. He's had nausea but no vomiting. He has had significant decrease in appetite and states that he has had some weight loss. He has not had much bowel movements recently but also has not been eating much. He denies any urinary symptoms. He states that his temperature will get up to approximately 100 at times. He does have a long history of alcohol abuse and associated pancreatitis. He states that he has stopped drinking alcohol except for he did have a drink last night as he was in a lot of pain and does not have any prescription pain medications. He was sent to the hospital by his primary care physician for further evaluation and treatment. He does apparently have a known pancreatic pseudocyst as well. He was hospitalized at the other hospital due to pancreatitis and abdominal pain. He apparently has chronic abdominal pain issues as well. There is no shortness of breath or chest pain. No other complaints or modifying factors. - Related Data Home Medications Medication Instructions Recorded Confirmed Gabapentin 800 mg PO TID 05/16/21 03/15/23 Cyclobenzaprine [Flexeril] 10 mg PO BID PRN 02/14/23 03/15/23 atenoloL [Tenormin] 25 mg PO DAILY 02/14/23 03/15/23 Previous Rx's Medication Instructions Recorded Lipase/Protease/Amylase [Jayme Price 1 cap PO TID-W/MEALS #90 cap 02/15/23 36,000 Unit Capsule] Allergies Allergy/AdvReac Type Severity Reaction Status Date / Time No Known Allergies Allergy Verified 03/15/23 12:51 Review of Systems ROS Statement: Those systems with pertinent positive or pertinent negative responses have been documented in the HPI. ROS Other: All systems not noted in ROS Statement are negative. Past Medical History Past Medical History: Asthma, GERD/Reflux, Hypertension, Neurologic Disorder, Renal Disease Additional Past Medical History / Comment(s): ETOH with drawal with tremors/seizure, bronchitis, neuropathy R leg/R foot pain/limps, chronic low back pain/5 disc ruptured, 2017 pt had dialysis for 3 months but states kidneys are working fine now, insomnia. History of Any Multi-Drug Resistant Organisms: None Reported Past Surgical History: Orthopedic Surgery Additional Past Surgical History / Comment(s): Rhinoplasty, sinus scrapped, L lower eyelid laceration/repair, R 2nd toe metatarsopharangeal arthroplasty. PANCREATIC STENT INSERTION AND REMOVAL Past Anesthesia/Blood Transfusion Reactions: No Reported Reaction Past Psychological History: Anxiety, Depression Smoking Status: Vaper Past Alcohol Use History: None Reported Past Drug Use History: None Reported - Past Family History Mother Family Medical History: No Reported History Additional Family Medical History / Comment(s): Mother is healthy. Father Family Medical History: No Reported History Additional Family Medical History / Comment(s): Father is healthy General Exam - General Exam Comments Initial Comments: GENERAL: The patient is well nourished and well hydrated. VITAL SIGNS: Heart rate, blood pressure, respiratory rate reviewed as recorded in nurse's notes. EYES: Pupils are round and reactive. Extraocular movements are intact. No conjunctival / lid redness or swelling. ENT: No external evidence of injury, swelling, or ecchymosis. Airway is patent. Throat is clear. NECK: Nontender. No swelling or evidence of injury. No subcutaneous emphysema. Trachea is midline. No thyroid mass. HEART: Regular rate and rhythm. Good peripheral pulses. LUNGS/CHEST: Breath sounds clear and equal bilaterally. No rales, rhonchi, or wheezes. No ecchymosis, subcutaneous emphysema, or tenderness. ABDOMEN: Abdomen soft tenderness noted in the midepigastric region and left lower quadrant. No palpable masses or organomegaly. No peritoneal signs. No abdominal wall swelling or ecchymosis. Genitourinary: There is no evidence of inguinal hernia. EXTREMITIES: No extremity tenderness. Normal muscle tone and function. No thor acolumbar tenderness. NEUROLOGIC: Sensation is grossly intact. Cranial nerve exam reveals face is s ymmetrical, tongue is midline, speech is clear. SKIN: No abrasions or ecchymosis is noted. No induration or masses noted. PSYCHIATRIC: Alert and oriented. Appropriate behavior and judgment. Limitations: no limitations Course Vital Signs 03/15/23 12:10 Temperature 98 F Pulse Rate 89 Respiratory 16 Rate Blood Pressure 118/74 O2 Sat by Pulse 100 Oximetry Medical Decision Making - Medical Decision Making The patient was seen and examined. All diagnostics are reviewed. IV is established and he does receive morphine as well as Zofran and IV fluids. The patient later receives Toradol for additional pain. He still is complaining of additional pain and is requesting Dilaudid. Is given additional morphine instead. Laboratory came back showing a slight leukocytosis as well as an anemia with hemoglobin of 8.7. Previous hemoglobin was 11 on 03/04/2023 and 12.3 on 02/15/2023. He denies any blood in his stools or black tarry stools. Hemoccult is then done and is found to be negative. The exact cause of his anemia is not definitively determined. Computed tomography scan of the abdomen and pelvis also was completed and does show multiple pseudocysts with largest being 13 cm up from 11 cm on previous computed tomography scan. Radiologist notes that he cannot rule out infected pseudocyst. No other acute findings are noted per radiologist. We do not have GI coverage at our hospital today. 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 Patient is agreeable with this plan. Case is discussed with transfer center at [facility] who discussed this with his GI physician who is agreeable to transfer. ER physician also is agreeable to transfer. The transfer center. Appropriate transfer paperwork is completed. Patient is stable on recheck. Was pt. sent in by a medical professional or institution (, PA, [employer]ER, urgent care, hospital, or fci...) When possible be specific @ -Patient was sent in by primary care physician. Did you speak to anyone other than the patient for history (EMS, parent, family, police, friend...)? What history was obtained from this source @ -[No] Did you review nursing and triage notes (agree or disagree)? Why? @ -[I reviewed and agree with nursing and triage notes] Were old charts reviewed (outside hosp., previous admission, EMS record, old EKG, old radiological studies, urgent care reports/EKG's, fci records)? Report findings @ -Old records were reviewed for additional history. Differential Diagnosis (chest pain, altered mental status, abdominal pain women, abdominal pain men, vaginal bleeding, weakness, fever, dyspnea, syncope, headache, dizziness, GI bleed, back pain, seizure, CVA, palpatations, mental health, musculoskeletal)? @ -No abdominal pain, pseudocyst of pancreas, infected pancreatic pseudocyst, diverticulitis, colitis, GI bleed, anemia, chronic pain of the abdomen EKG interpreted by me (3pts min.). @ -[As above] X-rays interpreted by me (1pt min.). @ -[None done] CT interpreted by me (1pt min.). @ -Computed tomography scan is interpreted by radiologist. U/S interpreted by me (1pt. min.). @ -[None done] What testing was considered but not performed or refused? (CT, X-rays, U/S, labs)? Why? @ -[None] What meds were considered but not given or refused? Why? @ -Multiple pain medications were given. Patient is requesting Dilaudid but it is not felt as though this is necessary. He does not appear to be in any distress initially or on recheck. Toradol and Toradol are given instead. Did you discuss the management of the patient with other professionals (professionals i.e. , PA, [employer]ER, lab, RT, psych nurse, social work case manager, grab jack worker, teacher, booking police officer, social work case manager)? Give summary @ -[No] Was smoking cessation discussed for >3mins.? @ -[No] Was critical care preformed (if so, how long)? @ -[No] Were there social determinants of health that impacted care today? How? (Homelessness, low income, unemployed, alcoholism, drug addiction, transportation, low edu. Level, literacy, decrease access to med. care, snf, rehab)? @ -[No] Was there de-escalation of care discussed even if they declined (Discuss DNR or withdrawal of care, Hospice)? DNR status @ -[No] What co-morbidities impacted this encounter? (DM, HTN, Smoking, COPD, CAD, Cancer, CVA, ARF, Chemo, Hep., AIDS, mental health diagnosis, sleep apnea, morbid obesity)? @ -Morbidities do include that of chronic pancreatitis, chronic abdominal pain, pancreatic pseudocyst and alcohol abuse, liver cirrhosis. Was patient admitted / discharged? Hospital course, mention meds given and route, prescriptions, significant lab abnormalities, going to OR and other pertinent info. @ -Patient is transferred to [facility]. Undiagnosed new problem with uncertain prognosis? @ -[No] Drug Therapy requiring intensive monitoring for toxicity (Heparin, Nitro, Insulin, Cardizem)? @ -[No] Were any procedures done? @ -[No] Diagnosis/symptom? @ -Enlarging pancreatic pseudocyst, possible infected pancreatic pseudocyst, anemia of unknown etiology, abdominal pain Acute, or Chronic, or Acute on Chronic? @ -Acute and chronic Uncomplicated (without systemic symptoms) or Complicated (systemic symptoms)? @ -Uncomplicated Side effects of treatment? @ -[No] Exacerbation, Progression, or Severe Exacerbation? @ -[No] Poses a threat to life or bodily function? How? (Chest pain, USA, NM, pneumonia, PE, COPD, DKA, ARF, appy, cholecystitis, CVA, Diverticulitis, Homicidal, Suicidal, threat to staff... and all critical care pts) @ -[No] - Lab Data Result diagrams: 03/15/23 12:48 03/15/23 12:48 Lab Results 03/15/23 03/15/23 03/15/23 Range/Units 12:48 12:48 12:48 WBC 11.7 H (3.8-10.6) k/uL RBC 2.81 L (4.30-5.90) m/uL Hgb 8.7 L D (13.0-17.5) gm/dL Hct 26.9 L (39.0-53.0) % MCV 95.7 (80.0-100.0) fL MCH 30.9 (25.0-35.0) pg MCHC 32.3 (31.0-37.0) g/dL RDW 14.2 (11.5-15.5) % Plt Count 649 H D (150-450) k/uL MPV 7.4 Neutrophils % 80 % Lymphocytes % 10 % Monocytes % 8 % Eosinophils % 0 % Basophils % 0 % Neutrophils # 9.4 H (1.3-7.7) k/uL Lymphocytes # 1.1 (1.0-4.8) k/uL Monocytes # 0.9 (0-1.0) k/uL Eosinophils # 0.0 (0-0.7) k/uL Basophils # 0.0 (0-0.2) k/uL Hypochromasia Slight PT 11.5 (9.0-12.0) sec INR 1.1 (<1.2) APTT 25.6 (22.0-30.0) sec Sodium (137-145) mmol/L Potassium (3.5-5.1) mmol/L Chloride (98-107) mmol/L Carbon Dioxide (22-30) mmol/L Anion Gap mmol/L BUN (9-20) mg/dL Creatinine (0.66-1.25) mg/dL Est GFR (CKD-EPI)AfAm (>60 ml/min/1.73 sqM) Est GFR (CKD-EPI)NonAf (>60 ml/min/1.73 sqM) Glucose (74-99) mg/dL Calcium (8.4-10.2) mg/dL Total Bilirubin (0.2-1.3) mg/dL AST (17-59) U/L ALT (4-49) U/L Alkaline Phosphatase (38-126) U/L Total Protein (6.3-8.2) g/dL Albumin (3.5-5.0) g/dL Lipase (23-300) U/L Urine Color Yellow Urine Appearance Clear (Clear) Urine pH 6.0 (5.0-8.0) Ur Specific [place] 1.042 H (1.001-1.035) Urine Protein Trace H (Negative) Urine Glucose (UA) Negative (Negative) Urine Ketones Negative (Negative) Urine Blood Negative (Negative) Urine Nitrite Negative (Negative) Urine Bilirubin Negative (Negative) Urine Urobilinogen <2.0 (<2.0) mg/dL Ur Leukocyte Esterase Negative (Negative) Stool Occult Blood (Negative) 03/15/23 03/15/23 Range/Units 12:48 15:15 WBC (3.8-10.6) k/uL RBC (4.30-5.90) m/uL Hgb (13.0-17.5) gm/dL Hct (39.0-53.0) % MCV (80.0-100.0) fL MCH (25.0-35.0) pg MCHC (31.0-37.0) g/dL RDW (11.5-15.5) % Plt Count (150-450) k/uL MPV Neutrophils % % Lymphocytes % % Monocytes % % Eosinophils % % Basophils % % Neutrophils # (1.3-7.7) k/uL Lymphocytes # (1.0-4.8) k/uL Monocytes # (0-1.0) k/uL Eosinophils # (0-0.7) k/uL Basophils # (0-0.2) k/uL Hypochromasia PT (9.0-12.0) sec INR (<1.2) APTT (22.0-30.0) sec Sodium 140 (137-145) mmol/L Potassium 4.2 (3.5-5.1) mmol/L Chloride 106 (98-107) mmol/L Carbon Dioxide 20 L (22-30) mmol/L Anion Gap 14 mmol/L BUN 29 H (9-20) mg/dL Creatinine 1.22 (0.66-1.25) mg/dL Est GFR (CKD-EPI)AfAm 82 (>60 ml/min/1.73 sqM) Est GFR (CKD-EPI)NonAf 71 (>60 ml/min/1.73 sqM) Glucose 115 H (74-99) mg/dL Calcium 9.6 (8.4-10.2) mg/dL Total Bilirubin 0.4 (0.2-1.3) mg/dL AST 26 (17-59) U/L ALT 32 (4-49) U/L Alkaline Phosphatase 208 H (38-126) U/L Total Protein 7.5 (6.3-8.2) g/dL Albumin 3.4 L (3.5-5.0) g/dL Lipase 52 (23-300) U/L Urine Color Urine Appearance (Clear) Urine pH (5.0-8.0) Ur Specific [place] (1.001-1.035) Urine Protein (Negative) Urine Glucose (UA) (Negative) Urine Ketones (Negative) Urine Blood (Negative) Urine Nitrite (Negative) Urine Bilirubin (Negative) Urine Urobilinogen (<2.0) mg/dL Ur Leukocyte Esterase (Negative) Stool Occult Blood Negative (Negative) Disposition Clinical Impression: Acute abdominal pain, Nausea, Pancreatic cyst, History of alcohol abuse, Alcoholic cirrhosis of liver, Chronic pain syndrome, Anemia Disposition: OTHER INSTITUTION NOT DEFINED Condition: Fair Is patient prescribed a controlled substance at d/c from ED?: No Referrals: Silvia Rios MD [Primary Care Provider] - 1-2 days Time of Disposition: 15:57 - Out of Hospital Transfer - Req. Specs Out of Hospital Transfer - Requested Specifics: Other Emergency Center (.[facility])
[2023-03-15 12:57] LABS: Basophils % (A) 0 %; Eosinophils % (A) 0 %; HCT 26.9 % (39.0-53.0); Hypochromasia Slight; Lymphocytes # (A) 1.1 k/uL (1.0-4.8); Lymphocytes % (A) 10 %; MCH 30.9 pg (25.0-35.0); MCHC 32.3 g/dL (31.0-37.0); MCV 95.7 fL (80.0-100.0); Mean Platelet Volume 7.4; Monocytes # (A) 0.9 k/uL (0-1.0); Monocytes % (A) 8 %; Neutrophils # (A) 9.4 k/uL (1.3-7.7); Neutrophils % (A) 80 %; RBC 2.81 m/uL (4.30-5.90); RDW 14.2 % (11.5-15.5); WBC 11.7 k/uL (3.8-10.6)
[2023-03-15 13:08] LABS: INR 1.1 (<1.2); Partial Thromboplastin Time 25.6 sec (22.0-30.0); Prothrombin Time 11.5 sec (9.0-12.0)
[2023-03-15 13:11] LABS: HGB 8.7 gm/dL (13.0-17.5); Platelet Count 649 k/uL (150-450)
--- NOTE | 2023-03-15 13:22 | CT ---
EXAMINATION TYPE: CT abdomen pelvis w con DATE OF EXAM: 03/15/2023 COMPARISON: March 04, 2023 HISTORY: LLQ pain CT DLP: 958.5 mGycm CONTRAST: CT scan of the abdomen and pelvis is performed without Oral Contrast and with IV Contrast, patient in jected with 100 mL of Isovue 300. FINDINGS: LUNG BASES-: No visible nodule. No infiltrate. LIVER/GB: No calcified gallstones. No space occupying hepatic lesion. Biliary tree is of normal ca liber. Hepatomegaly with mild underlying hepatic steatosis. PANCREAS: Atrophic change of the pancreatic body and tail with dilatation of the pancreatic duct. Foc al pancreatic calcification noted. Please see below with regards to multiple loculated fluid collecti ons which appear to arise from the pancreatic tail. SPLEEN: Stable splenomegaly. No lesion seen. ADRENALS: No nodule. No thickening. KIDNEYS/BLADDER: No hydronephrosis. Nonobstructing 3 mm calculus midpole left kidney. No distinct re nal mass. Urinary bladder grossly unremarkable. BOWEL: Normal appendix. Normal bowel caliber. No inflammation. GENITAL ORGANS: No gross abnormality. LYMPH NODES: No greater than 1cm abdominal or pelvic lymph nodes are appreciated. AORTA: No significant abnormality. OSSEOUS STRUCTURES: No significant abnormality is seen. OTHER: Again noted are multiple loculated fluid collections within the left side of the peritoneum wi th the dominant collection demonstrating interval enlargement. The largest collection measures approx imately 13.4 x 7.6 cm versus prior measurement of 11.6 x 6.7 cm. Collections extend to the level of t he pancreatic tail. Collections likely reflect multiple pseudocysts however underlying infected colle ction is not excluded. Correlate clinically. There is also a collection at the level of the gastrospl enic ligament measuring 2.8 cm. IMPRESSION: 1. Multiple loculated collections left side of the peritoneal cavity are again noted. There is increa sing size of dominant collection as discussed above. Multiple pseudocysts are suspected however infec yoanna pseudocysts cannot be excluded. The findings are likely related to chronic pancreatitis as I see no definite inflammatory change about the pancreas at this time however correlation with amylase and lipase is advised. 2. Hepatosplenomegaly. 3. Nonobstructing left renal calculus.
[2023-03-15 14:08] LABS: ALT 32 U/L (4-49); AST 26 U/L (17-59); African American GFR (CKD) 82 (>60 ml/min/1.73 sqM); Albumin 3.4 g/dL (3.5-5.0); Alkaline Phosphatase 208 U/L (38-126); Anion Gap 14 mmol/L; Blood Urea Nitrogen 29 mg/dL (9-20); Calcium 9.6 mg/dL (8.4-10.2); Carbon Dioxide 20 mmol/L (22-30); Chloride 106 mmol/L (98-107); Glucose 115 mg/dL (74-99); Lipase 52 U/L (23-300); Non-African American GFR(CKD) 71 (>60 ml/min/1.73 sqM); Potassium 4.2 mmol/L (3.5-5.1); Sodium 140 mmol/L (137-145); Total Bilirubin 0.4 mg/dL (0.2-1.3); Total Protein 7.5 g/dL (6.3-8.2)
[2023-03-15 14:12] LABS: Appearance,Urine Clear (Clear); Bilirubin,Urine Negative (Negative); Blood,Urine Negative (Negative); Color,Urine Yellow; Glucose,Urine (UA) Negative (Negative); Ketones,Urine Negative (Negative); Leukocyte Esterase,Urine Negative (Negative); Nitrite,Urine Negative (Negative); Protein,Urine Trace (Negative); Specific Gravity,Urine 1.042 (1.001-1.035); Urobilinogen,Urine <2.0 mg/dL (<2.0)
[2023-03-15] MEDS ORDERED: KETOROLAC 15 MG/ML 1 ML VIAL IVP STA ×2 (14:22→17:19)
[2023-03-15] MEDS ORDERED: PIPERACILLIN-TAZOBACTAM 3.375 GM in SODIUM CHLORIDE 0.9% 100 ML IVPB STA (15:15)
[2023-03-15] MEDS ORDERED: MORPHINE SULFATE 4 MG/ML SYRINGE IVP STA (15:15)
[2023-03-15] MEDS ORDERED: ACETAMINOPHEN IV (For NPO) 1,000 MG in EMPTY BAG 1 BAG IVPB STA (16:19)
[2023-03-15] MEDS ORDERED: HYDROmorphone 1 MG/ML 1 ML SYRINGE IVP STA (17:15)
[2023-03-15 18:27] VITALS: BP 126/68; PULSE 94; RESP 18; TEMP 101.1
== END 2023-03-15 18:29 | disposition other institution (70) ==
LOC: EC 11:54
DX: K86.2 Cyst of pancreas (principal); F10.10 Alcohol abuse, uncomplicated; K70.30 Alcoholic cirrhosis of liver without ascites; G89.4 Chronic pain syndrome; D64.9 Anemia, unspecified; N20.0 Calculus of kidney; J45.909 Unspecified asthma, uncomplicated; I10 Essential (primary) hypertension; F41.9 Anxiety disorder, unspecified; F32.A Depression, unspecified; F17.290 Nicotine dependence, other tobacco product, uncomplicated; Z79.899 Other long term (current) drug therapy; Z99.2 Dependence on renal dialysis
CPT/HCPCS: 36415; 80053; 83690; 85025; 85610; 85730; 82272; 81003; 87040; 74177; 99285; 96365; 96375 ×5; 96376; 96361 ×5; J2543; J2270; J2405; J1170; J0131; J1885; Q9967

== ENCOUNTER 2023-04-01 05:31 | Emergency (ER) | payer OTHER ==
[2023-04-01] MEDS ORDERED: PANTOPRAZOLE 40 MG/10 ML VIAL IVP STA (05:56)
[2023-04-01] MEDS ORDERED: MORPHINE SULFATE 4 MG/ML SYRINGE IVP STA (05:56)
[2023-04-01] MEDS ORDERED: ONDANSETRON 4 MG/2 ML VIAL IVP STA (05:56)
[2023-04-01] MEDS ORDERED: SODIUM CHLORIDE 0.9% 1,000 ML IV STA (05:56)
--- NOTE | 2023-04-01 05:57 | ED ---
Abdominal Pain HPI - General Source: patient, EMS, RN notes reviewed, old records reviewed Mode of arrival: EMS Limitations: no limitations - History of Present Illness MD Complaint: abdominal pain -: hour(s) Location: periumbilical, epigastric Radiation: LLQ, epigastric, L flank Migration to: LLQ, suprapubic Severity: moderate Severity scale (1-10): 7 Quality: stabbing Consistency: intermittent Improves With: nothing Worsens With: nothing Context: recent surgery/procedure Associated Symptoms: nausea Treatments Prior to Arrival: other (0) <Rajan Leung - Last Filed: 04/01/23 06:06> <Placido Chacon - Last Filed: 04/01/23 10:58> - General Chief Complaint: Abdominal Pain Stated Complaint: Abd pain Time Seen by Provider: 04/01/23 05:36 - History of Present Illness Initial Comments: This is a 47-year-old male the ER today. Patient Dese for evaluation of abdominal pain recurrent evaluation regarding abdominal pain with history of abdominal pain pancreatitis chronic pancreatitis and pancreatic pseudocyst. Patient recently had a drain placed for significant amount of intra-abdominal fluid. Pain started tonight is severe patient has some nausea no current vomiting. (Rajan Leung) - Related Data Home Medications Medication Instructions Recorded Confirmed Gabapentin 800 mg PO TID 05/16/21 03/15/23 Cyclobenzaprine [Flexeril] 10 mg PO BID PRN 02/14/23 03/15/23 atenoloL [Tenormin] 25 mg PO DAILY 02/14/23 03/15/23 Previous Rx's Medication Instructions Recorded Lipase/Protease/Amylase [Jayme Price 1 cap PO TID-W/MEALS #90 cap 02/15/23 36,000 Unit Capsule] Allergies Allergy/AdvReac Type Severity Reaction Status Date / Time No Known Allergies Allergy Verified 03/15/23 12:51 Review of Systems ROS Other: All systems not noted in ROS Statement are negative. <Rajan Leung - Last Filed: 04/01/23 06:06> ROS Other: All systems not noted in ROS Statement are negative. <Placido Chacon - Last Filed: 04/01/23 10:58> ROS Statement: Those systems with pertinent positive or pertinent negative responses have been documented in the HPI. Past Medical History Past Medical History: Asthma, GERD/Reflux, Hypertension, Neurologic Disorder, Renal Disease Additional Past Medical History / Comment(s): ETOH with drawal with tremors/seizure, bronchitis, neuropathy R leg/R foot pain/limps, chronic low back pain/5 disc ruptured, 2017 pt had dialysis for 3 months but states kidneys are working fine now, insomnia. History of Any Multi-Drug Resistant Organisms: None Reported Past Surgical History: Orthopedic Surgery Additional Past Surgical History / Comment(s): Rhinoplasty, sinus scrapped, L lower eyelid laceration/repair, R 2nd toe metatarsopharangeal arthroplasty. PANCREATIC STENT INSERTION AND REMOVAL Past Anesthesia/Blood Transfusion Reactions: No Reported Reaction Past Psychological History: Anxiety, Depression Smoking Status: Vaper Past Alcohol Use History: None Reported Past Drug Use History: None Reported - Past Family History Mother Family Medical History: No Reported History Additional Family Medical History / Comment(s): Mother is healthy. Father Family Medical History: No Reported History Additional Family Medical History / Comment(s): Father is healthy <Rajan Leung - Last Filed: 04/01/23 06:06> General Exam Limitations: no limitations General appearance: alert, in no apparent distress Head exam: Present: atraumatic, normocephalic, normal inspection Eye exam: Present: normal appearance, PERRL, EOMI. Absent: scleral icterus, conjunctival injection, periorbital swelling ENT exam: Present: normal exam, mucous membranes moist Neck exam: Present: normal inspection. Absent: tenderness, meningismus, lymphadenopathy Respiratory exam: Present: normal lung sounds bilaterally. Absent: respiratory distress, wheezes, rales, rhonchi, stridor Cardiovascular Exam: Present: regular rate, normal rhythm, normal heart sounds. Absent: systolic murmur, diastolic murmur, rubs, gallop, clicks GI/Abdominal exam: Present: soft, normal bowel sounds. Absent: distended, tenderness, guarding, rebound, rigid Extremities exam: Present: normal inspection, full ROM, normal capillary refill. Absent: tenderness, pedal edema, joint swelling, calf tenderness Back exam: Present: normal inspection Neurological exam: Present: alert, oriented X3, CN II-XII intact Psychiatric exam: Present: normal affect, normal mood Skin exam: Present: warm, dry, intact, normal color. Absent: rash <Rajan Leung - Last Filed: 04/01/23 06:06> Course <Rajan Leung - Last Filed: 04/01/23 06:06> Vital Signs 04/01/23 04/01/23 05:39 09:42 Temperature 98.7 F Pulse Rate 75 77 Respiratory 14 18 Rate Blood Pressure 122/94 144/90 O2 Sat by Pulse 99 100 Oximetry - Reevaluation(s) Reevaluation #1: 04/01/23 06:07 Medical records reviewed (Rajan Leung) Reevaluation #4: 04/01/23 06:07 Was pt. sent in by a medical professional or institution (KATIA Escobar, MACHINE APPLICATOR CEMENTER, urgent care, hospital, or usp...) When possible be specific @ -no Did you speak to anyone other than the patient for history (EMS, parent, family, police, friend...)? What history was obtained from this source @ -no Did you review nursing and triage notes (agree or disagree)? Why? @ -agree Are old charts reviewed (outside hosp., previous admission, EMS record, old EKG, old radiological studies, urgent care reports/EKG's, usp records)? Report findings @ -yes Differential Diagnosis (chest pain, altered mental status, abdominal pain women, abdominal pain men, vaginal bleeding, weakness, fever, dyspnea, syncope, headache, dizziness, GI bleed, back pain, seizure, CVA, palpatations, mental health, musculoskeletal)? @ -prior EKG interpreted by me (3pts min.). @ -yes X-rays interpreted by me (1pt min.). @ -yes CT interpreted by me (1pt min.). @ -no U/S interpreted by me (1pt. min.). @ -no What testing was considered but not performed or refused? (CT, X-rays, U/S, labs)? Why? @ -none What meds were considered but not given or refused? Why? @ -none Did you discuss the management of the patient with other professionals (professionals i.e. KATIA Escobar, MACHINE APPLICATOR CEMENTER, lab, RT, psych nurse, school social worker, agility instructor, teacher, risk control officer, case liner)? Give summary @ -no Was smoking cessation discussed for >3mins.? @ -no Was critical care preformed (if so, how long)? @ -no Were there social determinants of health that impacted care today? How? (Homelessness, low income, unemployed, alcoholism, drug addiction, transportation, low edu. Level, literacy, decrease access to med. care, correction, rehab)? @ -none Was there de-escalation of care discussed even if they declined (Discuss DNR or withdrawal of care, Hospice)? DNR status @ -no What co-morbidities impacted this encounter? (DM, HTN, Smoking, COPD, CAD, Cancer, CVA, ARF, Chemo, Hep., AIDS, mental health diagnosis, sleep apnea, morbid obesity)? @ -none Was patient admitted / discharged? Hospital course, mention meds given and route, prescriptions, significant lab abnormalities, going to OR and other pertinent info. @ - Undiagnosed new problem with uncertain prognosis? @ -no Drug Therapy requiring intensive monitoring for toxicity (Heparin, Nitro, Insulin, Cardizem)? @ -no Were any procedures done? @ -no Diagnosis/symptom? @ - Acute, or Chronic, or Acute on Chronic? @ -Acute Uncomplicated (without systemic symptoms) or Complicated (systemic symptoms)? @ -Complicated Side effects of treatment? @ -no Exacerbation, Progression, or Severe Exacerbation? @ -exacerbation Poses a threat to life or bodily function? How? (Chest pain, USA, VA, pneumonia, PE, COPD, DKA, ARF, appy, cholecystitis, CVA, Diverticulitis, Homicidal, Suicidal, threat to staff... and all critical care pts) @ -yes (Rajan Leung) Reevaluation #5: 04/01/23 06:07 Differential Abdominal Pain Men: Appendicitis, cholecystitis, diverticulosis, ischemic bowel, pancreatitis, hepatitis, UTI, gastroenteritis, AAA, incarcerated hernia, bowel obstruction, constipation, inflammatory bowel, hepatitis, peptic ulcer disease, splenic infarction, perforated viscus, testicular torsion, this is not meant to be an all-inclusive list (Rajan Leung) Medical Decision Making - Lab Data Result diagrams: 04/01/23 06:18 04/01/23 06:18 <Placido Chacon - Last Filed: 04/01/23 10:58> - Medical Decision Making The patient was endorsed me by Dr. Leung this morning at our shift change pending CT evaluation the patient's pain was on the left side after IV medications. CAT scan shows the 2 mm calculus at the right UVJ with mild hydronephrosis. Left-sided shows a nonobstructive 5 mm calculus at the lower pole of the kidney. There is a pancreatic duct dilatation noted likely consistent with his previous diagnosis. Improvement of the size of the fluid collection known abdominal wall. I did discuss the case with the patient and with Dr. Leon [facility] in [place] patient can be discharged and follow-up with Dr. Messer for an office appointment. Patient is in agreement with this he states he does have a ride to be able get the [place].Was pt. sent in by a medical professional or institution (, KATIA, MACHINE APPLICATOR CEMENTER, urgent care, hospital, or usp...) When possible be specific @ -Dr. Leung Did you speak to anyone other than the patient for history (EMS, parent, family, police, friend...)? What history was obtained from this source @ -No Did you review nursing and triage notes (agree or disagree)? Why? @ -I reviewed and agree with nursing and triage notes Were old charts reviewed (outside hosp., previous admission, EMS record, old EKG, old radiological studies, urgent care reports/EKG's, usp records)? Report findings @ - old charts were reviewed Differential Diagnosis (chest pain, altered mental status, abdominal pain women, abdominal pain men, vaginal bleeding, weakness, fever, dyspnea, syncope, headache, dizziness, GI bleed, back pain, seizure, CVA, palpatations, mental health, musculoskeletal)? @ -not applicable EKG interpreted by me (3pts min.). @ -None done X-rays interpreted by me (1pt min.). @ -None done CT interpreted by me (1pt min.). @ -CT abdomen pelvis interpreted by me U/S interpreted by me (1pt. min.). @ -None done What testing was considered but not performed or refused? (CT, X-rays, U/S, labs)? Why? @ -None What meds were considered but not given or refused? Why? @ -None Did you discuss the management of the patient with other professionals (professionals i.e. , KATIA, MACHINE APPLICATOR CEMENTER, lab, RT, psych nurse, school social worker, agility instructor, teacher, risk control officer, case liner)? Give summary @ - Dr. Benedict covering for Dr. Messer Was smoking cessation discussed for >3mins.? @ -No Was critical care preformed (if so, how long)? @ -No Were there social determinants of health that impacted care today? How? (Homelessness, low income, unemployed, alcoholism, drug addiction, transportation, low edu. Level, literacy, decrease access to med. care, correction, rehab)? @ -No Was there de-escalation of care discussed even if they declined (Discuss DNR or withdrawal of care, Hospice)? DNR status @ -No What co-morbidities impacted this encounter? (DM, HTN, Smoking, COPD, CAD, Cancer, CVA, ARF, Chemo, Hep., AIDS, mental health diagnosis, sleep apnea, morb id obesity)? @ -Pancreatic pseudocyst Was patient admitted / discharged? Hospital course, mention meds given and route, prescriptions, significant lab abnormalities, going to OR and other pertinent info. @ -The patient discharged with outpatient follow-up Undiagnosed new problem with uncertain prognosis? @ -No Drug Therapy requiring intensive monitoring for toxicity (Heparin, Nitro, Insulin, Cardizem)? @ -No Were any procedures done? @ -No Diagnosis/symptom? @ -Abdominal pain, history of pancreatic pseudocyst, right ureterolithiasis Acute, or Chronic, or Acute on Chronic? @ -Acute on chronic Uncomplicated (without systemic symptoms) or Complicated (systemic symptoms)? @ -Uncomplicated Side effects of treatment? @ -No Exacerbation, Progression, or Severe Exacerbation? @ -No Poses a threat to life or bodily function? How? (Chest pain, USA, VA, pneumonia, PE, COPD, DKA, ARF, appy, cholecystitis, CVA, Diverticulitis, Homicidal, Suicidal, threat to staff... and all critical care pts) @ -No (Placido Chacon) - Lab Data Lab Results 04/01/23 04/01/23 04/01/23 Range/Units 06:18 06:18 06:18 WBC 4.7 (3.8-10.6) k/uL RBC 3.11 L (4.30-5.90) m/uL Hgb 10.1 L (13.0-17.5) gm/dL Hct 29.4 L (39.0-53.0) % MCV 94.6 (80.0-100.0) fL MCH 32.4 (25.0-35.0) pg MCHC 34.2 (31.0-37.0) g/dL RDW 16.0 H (11.5-15.5) % Plt Count 259 (150-450) k/uL MPV 7.4 Neutrophils % 68 % Lymphocytes % 22 % Monocytes % 6 % Eosinophils % 2 % Basophils % 0 % Neutrophils # 3.2 (1.3-7.7) k/uL Lymphocytes # 1.0 (1.0-4.8) k/uL Monocytes # 0.3 (0-1.0) k/uL Eosinophils # 0.1 (0-0.7) k/uL Basophils # 0.0 (0-0.2) k/uL Sodium 142 (137-145) mmol/L Potassium 4.1 (3.5-5.1) mmol/L Chloride 106 (98-107) mmol/L Carbon Dioxide 28 (22-30) mmol/L Anion Gap 8 mmol/L BUN 13 (9-20) mg/dL Creatinine 0.94 (0.66-1.25) mg/dL Est GFR (CKD-EPI)AfAm >90 (>60 ml/min/1.73 sqM) Est GFR (CKD-EPI)NonAf >90 (>60 ml/min/1.73 sqM) Glucose 104 H (74-99) mg/dL Calcium 8.9 (8.4-10.2) mg/dL Total Bilirubin 0.3 (0.2-1.3) mg/dL AST 22 (17-59) U/L ALT 24 (4-49) U/L Alkaline Phosphatase 112 (38-126) U/L Total Protein 7.6 (6.3-8.2) g/dL Albumin 3.8 (3.5-5.0) g/dL Amylase 84 (30-110) U/L Lipase 98 (23-300) U/L Urine Color Light Yellow Urine Appearance Clear (Clear) Urine pH 6.5 (5.0-8.0) Ur Specific [place] 1.020 (1.001-1.035) Urine Protein Negative (Negative) Urine Glucose (UA) Negative (Negative) Urine Ketones Negative (Negative) Urine Blood 0,03 (Negative) Urine Nitrite Negative (Negative) Urine Bilirubin Negative (Negative) Urine Urobilinogen <2.0 (<2.0) mg/dL Ur Leukocyte Esterase Negative (Negative) Urine RBC 5 (0-5) /hpf - Radiology Data Interpreted by me: CT imaging interpreted by me small right 2 mm ureteral calculus of the UV junction mild hydronephrosis seen. Dilated pancreatic duct and improvement in the fluid collection in the abdominal wall. Earlier findings (Placido Chacon) Disposition <Rajan Leung - Last Filed: 04/01/23 06:06> Is patient prescribed a controlled substance at d/c from ED?: No Decision Date: 04/01/23 Decision Time: 10:40 <Placido Chacon - Last Filed: 04/01/23 10:58> Clinical Impression: Abdominal pain, Kidney stone on right side, Pancreatic pseudocyst Disposition: HOME SELF-CARE Condition: Good Instructions (If sedation given, give patient instructions): Abdominal Pain (ED), Kidney Stones (ED), How to Strain Your Urine (ED), Pancreatic Pseudocyst (DC) Referrals: Silvia Rios MD [Primary Care Provider] - 1-2 days Alonzo Messer MD [REFERRING] - 1-2 days
[2023-04-01 07:05] LABS: Basophils % (A) 0 %; Eosinophils # (A) 0.1 k/uL (0-0.7); Eosinophils % (A) 2 %; HCT 29.4 % (39.0-53.0); HGB 10.1 gm/dL (13.0-17.5); Lymphocytes % (A) 22 %; MCH 32.4 pg (25.0-35.0); MCHC 34.2 g/dL (31.0-37.0); MCV 94.6 fL (80.0-100.0); Mean Platelet Volume 7.4; Monocytes # (A) 0.3 k/uL (0-1.0); Monocytes % (A) 6 %; Neutrophils # (A) 3.2 k/uL (1.3-7.7); Neutrophils % (A) 68 %; Platelet Count 259 k/uL (150-450); RBC 3.11 m/uL (4.30-5.90); WBC 4.7 k/uL (3.8-10.6)
[2023-04-01 07:17] LABS: ALT 24 U/L (4-49); AST 22 U/L (17-59); African American GFR (CKD) >90 (>60 ml/min/1.73 sqM); Albumin 3.8 g/dL (3.5-5.0); Alkaline Phosphatase 112 U/L (38-126); Amylase 84 U/L (30-110); Anion Gap 8 mmol/L; Blood Urea Nitrogen 13 mg/dL (9-20); Calcium 8.9 mg/dL (8.4-10.2); Carbon Dioxide 28 mmol/L (22-30); Chloride 106 mmol/L (98-107); Glucose 104 mg/dL (74-99); Lipase 98 U/L (23-300); Non-African American GFR(CKD) >90 (>60 ml/min/1.73 sqM); Potassium 4.1 mmol/L (3.5-5.1); Sodium 142 mmol/L (137-145); Total Bilirubin 0.3 mg/dL (0.2-1.3); Total Protein 7.6 g/dL (6.3-8.2)
--- NOTE | 2023-04-01 07:56 | CT ---
EXAMINATION TYPE: CT abdomen pelvis w con CT DLP: 892 mGycm, Automated exposure control for dose reduction was used. DATE OF EXAM: 04/01/2023 7:31 AM COMPARISON: 03/15/2023 CLINICAL INDICATION:Male, 47 years old with history of pain; abd pain TECHNIQUE: Axial CT of the abdomen and pelvis. Sagittal and coronal reformats were created on a Flooved workstation. Contrast used:100 mL of Isovue 300 with IV Contrast, (none if empty) Oral contrast used: without Oral Contrast (none if empty) FINDINGS: LOWER CHEST: Unremarkable ABDOMEN LIVER: Unremarkable GALLBLADDER AND BILE DUCTS: Unremarkable. PANCREAS: There is calcifications within the pancreatic parenchyma. There is a dilated pancreatic kat t that extends away from the pancreatic body. SPLEEN: Unremarkable. ADRENAL GLANDS: Unremarkable. KIDNEYS AND URETERS: nonobstructing 5 mm calculus in the inferior left renal pole. 2 mm calculus at t he right ureterovesicular junction with mild hydronephrosis. No left hydronephrosis. PELVIS BLADDER: Unremarkable REPRODUCTIVE: Unremarkable. ABDOMEN & PELVIS STOMACH AND BOWEL: No evidence of bowel obstruction. PERITONEUM/RETROPERITONEUM: No evidence of pneumoperitoneum or free fluid. VASCULATURE: No evidence of aortic aneurysm. MUSCULOSKELETAL: No acute osseous abnormalities LYMPH NODES: No gross evidence for lymphadenopathy. SOFT TISSUE/ABDOMINAL WALL: There remains a fluid collection on left lateral wall measuring 4.7 x 2.0 x 6.0 cm. Fat-containing umbilical hernia. IMPRESSION: 1. 2 mm calculus at the right ureterovesicular junction with mild hydronephrosis. 2. Interval decrease in left lateral wall fluid collection compatible with provided history. 3. Dilated main pancreatic duct starting in the mid pancreatic body near calcification. If not Alreelliott loredo performed further evaluation of the pancreas with MRI pancreatic mass protocol with MRCP is recomm ended.
[2023-04-01] MEDS ORDERED: KETOROLAC 15 MG/ML 1 ML VIAL IVP STA (08:58)
[2023-04-01 09:02] LABS: Appearance,Urine Clear (Clear); Bilirubin,Urine Negative (Negative); Color,Urine Light Yellow; Glucose,Urine (UA) Negative (Negative); Ketones,Urine Negative (Negative); PH, Urine 6.5 (5.0-8.0); Protein,Urine Negative (Negative)
[2023-04-01 09:03] LABS: Leukocyte Esterase,Urine Negative (Negative); Nitrite,Urine Negative (Negative); RBC,Urine 5 /hpf (0-5); Urobilinogen,Urine <2.0 mg/dL (<2.0)
[2023-04-01 09:42] VITALS: RESP 18
[2023-04-01 11:22] VITALS: BP 158/88; PULSE 82; TEMP 98.5
== END 2023-04-01 11:18 | disposition home or self-care (01) ==
LOC: EC 05:31
DX: K86.3 Pseudocyst of pancreas (principal); N13.2 Hydronephrosis with renal and ureteral calculous obstruction; I10 Essential (primary) hypertension; J45.909 Unspecified asthma, uncomplicated; F17.290 Nicotine dependence, other tobacco product, uncomplicated; Z79.899 Other long term (current) drug therapy
CPT/HCPCS: 36415; 80053; 82150; 83690; 85025; 81001; 74177; 99285; 96374; 96375 ×3; 96361 ×2; J2270; J2405; J1885; C9113; Q9967

== ENCOUNTER → 2023-09-26 | Outpatient (CLI) | payer BC ==
--- NOTE | 2023-09-28 12:46 | CT ---
EXAMINATION TYPE: CT abdomen w con DATE OF EXAM: 09/26/2023 COMPARISON: 04/01/2023 INDICATION: pancreatic mass DLP: 454.2 mGycm, Automated exposure control for dose reduction was used. CONTRAST: 100ml mL of Isovue 300. Study performed with Oral Contrast TECHNIQUE: Axial images were obtained from above the diaphragm to the pubic rami in the axial plane a t 5 mm thick sections. Reconstructed images are reviewed on the computer in the coronal plane. FINDINGS: Limited CT sections are obtained the lung bases. There is a small right pleural effusion. There is diffuse wall thickening of the distal esophagus with a mass measuring approximately 6.2 cm i n diameter. Additional evaluation for esophageal neoplasm is recommended. This is an interval change. . CT ABDOMEN: Liver: Normal Spleen: Normal Pancreas: There is some ill-defined hypodensity in the body of the pancreas measuring 2.5 cm. Promine nt pancreatic tail duct extends to this level. Underlying mass should be considered. This appears to extend superiorly towards the gastric fundus. There is a calcification which remains present at this level Adrenal glands: The adrenal glands are normal. Gallbladder: Normal Kidneys: No masses are evident. No hydronephrosis is present. No cysts are present. Delayed images were obtained through the kidneys, which remain unremarkable. Aorta: Vascular calcification is within the aorta. Inferior vena cava: Normal. CT UPPER PELVIS Loops of bowel within the abdomen and pelvis are normal. There are loops of bowel which are incom pletely distended or lack oral contrast limiting their evaluation. Appendix: Normal as visualized. IMPRESSION: 1. Large 0.2 cm masslike area distal esophagus. Additional work up for esophageal cancer is recommen ded. 2. Slightly hypodense area within the body of the pancreas could be patient's reported pancreas neopl asm. This does extend superiorly towards the stomach.
== END | disposition home or self-care (01) ==
LOC: RADCTMAIN 11:33
PROVIDERS: ATTEND Nurse Practitioner Family
DX: K86.89 Other specified diseases of pancreas (principal); K86.81 Exocrine pancreatic insufficiency; F39 Unspecified mood [affective] disorder; G89.11 Acute pain due to trauma; I10 Essential (primary) hypertension; E78.5 Hyperlipidemia, unspecified; E55.9 Vitamin D deficiency, unspecified; K21.9 Gastro-esophageal reflux disease without esophagitis; F31.81 Bipolar II disorder; F95.2 Tourette's disorder; R51.9 Headache, unspecified; R93.3 Abnormal findings on diagnostic imaging of other parts of digestive tract
CPT/HCPCS: 74160; Q9967

== ENCOUNTER → 2023-11-13 | Outpatient (CLI) | payer BC, OTHER ==
--- NOTE | 2023-11-16 13:37 | MR ---
EXAMINATION TYPE: MR pancreas wo/w con DATE OF EXAM: 11/13/2023 10:19 AM CLINICAL INDICATION:Male, 47 years old with history of [id number] OTHER SPECIFIED DISEASE OF ESOPHAGUS; PH H, Pancreatic Mass COMPARISON: CT 09/26/2023, 04/01/2023 TECHNIQUE: Multiplanar multi-sequence imaging was performed without contrast. Post contrast imaging was performed. Post IV contrast subtraction images were also submitted for review. IV Contrast: 7.5 cc Gadavist FINDINGS: LOWER CHEST: Abnormal lesion next esophagus of unknown etiology which is not seen on prior 04/01/2023 CT however is present on 09/26/2023. It was larger on most recent prior exam on 09/26/2023 and has decr eased in size now. Now measuring 25 x 26 x 44 mm, previously 38 x 39 x 80 mm fingerlike extension on prior towards the pancreatic tail has decreased. ABDOMEN Liver: No evidence for hepatic steatosis or cirrhosis. Gallbladder and Bile ducts: No evidence for ductal dilation, or biliary stricture or evidence of chol edocholithiasis. The gallbladder is within normal limits. Pancreas: Suspected calcification in the main pancreatic duct near the tail with upstream dilation of the main pancreatic duct and possible sequela of prior pancreatitis with pseudocysts present. Pseudo cyst around the area of calcification on prior is present and there is no abnormal postcontrast enhan cement. No evidence for mass in the pancreas. The extensive inflammation extending up into the medias tinum on prior has decreased today's exam. As described above. Spleen: Normal for size. Adrenal glands: Unremarkable. Kidneys: No evidence for obstructive uropathy. No suspicious renal masses. Stomach and Bowel: No evidence for bowel wall thickening or evidence for obstruction. Retroperitoneum/Peritoneum: No evidence of pneumoperitoneum or free fluid. Vasculature: There is a outpouching of the splenic artery best appreciated on series 901 image 316 me asuring up to 13 mm. Musculoskeletal: The osseous structures appear intact. Lymph Nodes: No gross evidence for lymphadenopathy. Abdominal wall: No fluid along the left abdominal wall. IMPRESSION: 1. After reviewing multiple prior CTs as well as the MRI, there appears to been a calculus in the ma in pancreatic duct in the pancreatic body present on 03/15/2023 with subsequent pancreatitis changes w ith pseudocyst formation near this calcification which extended up towards and into the mediastinum o n prior. Suspected mediastinal extension of pseudocyst around the esophagus has decreased in size. No masses definitively visualized. 2. 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 Vasc ular surgery consultation recommended.
== END | disposition home or self-care (01) ==
LOC: RADMRIMAIN 09:09
PROVIDERS: ATTEND Internal Medicine Gastroenterology
DX: K22.89 Other specified disease of esophagus (principal); Z87.19 Personal history of other diseases of the digestive system
CPT/HCPCS: 74183; A9585

== ENCOUNTER 2023-12-12 11:19 | Day surgery (SDC) | payer BC ==
[2023-12-12] MEDS: LACTATED RINGERS 1,000 ML IV SCH (11:54)
[2023-12-12 12:24] VITALS: PULSE 55; RESP 16; TEMP 97
[2023-12-12] MEDS ORDERED: LIDOCAINE 1% INJ 10MG/ML (20 ML MDV) ONE (12:40)
[2023-12-12] MEDS ORDERED: PROPOFOL 10 MG/ML 20 ML VIAL IV ONE (12:40)
--- NOTE | 2023-12-12 13:04 | P.PCN ---
Date of Procedure: 12/12/23 Procedure(s) Performed: Brief history: Patient is a pleasant 47-year-old white malescheduled for an elective upper endoscopy as well as colonoscopy as a part of evaluation ofIntermittent dysphagia to solids for the last few months duration associated with weight loss of 7 pounds. He did have a CT of the abdomen and pelvis done in September 2023 that showed diffuse esophageal wall thickening in the distal esophagus suspicious for esophageal mass. He was also diagnosed with iron deficiency anemia and hence he scheduled for an upper endoscopy as well as colonoscopy today. Procedure performed: Esophagogastroduodenoscopy With biopsy Colonoscopy Preoperative diagnosis: Dysphagia/abnormal CT of abdomen that showed thickening of the distal esophagus rule out mass Iron deficiency anemia Anesthesia: MAC Procedure: After informed consent was obtained from the patient was brought into the endoscopy unit and IV sedation was administered by anesthesia under continuous monitoring. Initially upper endoscopy was done. The Olympus GF 160 video endoscope was inserted inserted into the mouth and esophagus intubated without any difficulty and was gradually advanced into the stomach and duodenum and carefully examined. The bulb and second part of the duodenum appeared normal. The scope was then withdrawn into the stomach adequately insufflated with air and upon careful examination the antrum Had scattered erosions and biopsies were done from this area. Mucosa of the body, cardia and fundus appeared normal. The scope was then withdrawn into the esophagus. The GE junction was located at 40 cm to the incisors. It appeared regular with no erythema erosions or ulcerations. Rest of the esophagus appeared normal. Biopsies were done from the distal esophagus Patient tolerated the procedure well. At this time the patient continued to remain sedation. Initial digital rectal examination was normal. Olympus CF 160 video colonoscope was then inserted into the rectum and gradually advanced to the cecum without any difficulty. Careful examination was performed as the scope was gradually being withdrawn. The prep was excellent. The cecum, ascending colon, transverse colon, descending colon, sigmoid colon and rectum appeared normal. Retroflexion was performed in the rectum and Small internal hemorrhoids were noted. Patient tolerated the procedure well. Impression: 1. Upper endoscopy revealed mild antral erosive gastritis and normal-appearing esophagus with no evidence of esophagitis or esophageal mass 2. Colonoscopy was within normal limits with no evidence of colitis or colorectal neoplasia except for small internal hemorrhoids. Recommendations: Findings of this examination were discussed with the patient as well as His family.He was advised to follow with the biopsy results. Recommendations repeat screening colonoscopy in 10 years. Follow up in office as needed.
[2023-12-12 13:52] VITALS: BP 108/59
== END 2023-12-12 13:40 | disposition home or self-care (01) ==
LOC: ORWHC2ENDO 11:19
PROVIDERS: ATTEND Internal Medicine Gastroenterology
DX: K29.50 Unspecified chronic gastritis without bleeding (principal); K21.00 Gastro-esophageal reflux disease with esophagitis, without bleeding; D50.9 Iron deficiency anemia, unspecified; K64.8 Other hemorrhoids; I10 Essential (primary) hypertension; J45.909 Unspecified asthma, uncomplicated; F17.200 Nicotine dependence, unspecified, uncomplicated; G62.9 Polyneuropathy, unspecified; F32.A Depression, unspecified; F41.9 Anxiety disorder, unspecified; F41.0 Panic disorder [episodic paroxysmal anxiety]; Z79.899 Other long term (current) drug therapy; Z79.51 Long term (current) use of inhaled steroids
CPT/HCPCS: 88305; 45378; 43239; J2001; J2704

== ENCOUNTER 2024-06-22 22:38 | Emergency (ER) | payer BC, OTHER ==
[2024-06-22 22:57] LABS: Basophils % (A) 0 %; Eosinophils # (A) 0.1 k/uL (0-0.7); Eosinophils % (A) 2 %; HCT 36.5 % (39.0-53.0); HGB 11.8 gm/dL (13.0-17.5); Hypochromasia Slight; Lymphocytes # (A) 0.9 k/uL (1.0-4.8); Lymphocytes % (A) 16 %; MCH 30.8 pg (25.0-35.0); MCHC 32.3 g/dL (31.0-37.0); MCV 95.2 fL (80.0-100.0); Mean Platelet Volume 8.5; Monocytes # (A) 0.3 k/uL (0-1.0); Monocytes % (A) 5 %; Neutrophils # (A) 4.2 k/uL (1.3-7.7); Neutrophils % (A) 75 %; Platelet Count 203 k/uL (150-450); RBC 3.84 m/uL (4.30-5.90); RDW 15.6 % (11.5-15.5); WBC 5.7 k/uL (3.8-10.6)
--- NOTE | 2024-06-22 23:29 | ED ---
Abdominal Pain HPI - General Chief Complaint: Abdominal Pain Stated Complaint: ABD Pain Time Seen by Provider: 06/22/24 23:28 Source: EMS Mode of arrival: EMS Limitations: no limitations - History of Present Illness Initial Comments: 48-year-old male with history of chronic pancreatitis presenting with chief complaint of abdominal pain. Pain is located in the epigastric region and started a few hours ago. Patient admits to nausea and vomiting. This feels consistent with previous flareups of his pancreatitis. He does admit to current alcohol consumption, previous daily drinker. No chest pain or difficulty breathing. No fevers. No hematic emesis or hematochezia. - Related Data Home Medications Medication Instructions Recorded Confirmed atenoloL [Tenormin] 25 mg PO DAILY 02/14/23 12/12/23 Calcium Carbonate [Tums] 500 mg PO BID 12/10/23 12/12/23 Docusate [Colace] 100 mg PO HS PRN 12/10/23 12/12/23 Famotidine [Pepcid] 20 mg PO BID 12/10/23 12/12/23 Fenofibrate Nanocrystallized 145 mg PO DAILY 12/10/23 12/12/23 [Fenofibrate] Ibuprofen [Motrin] 400 mg PO Q8HR PRN 12/10/23 12/12/23 Iron Ag/C/B12/Ca/Suc.acid/Stom 1 each PO DAILY 12/10/23 12/12/23 [Multigen] Magnesium Hydroxide [Milk of 15 ml PO HS PRN 12/10/23 12/12/23 Magnesia Concentrate] Martazapine 30 mg PO HS 12/10/23 12/12/23 Ondansetron [Zofran] 4 mg PO BID PRN 12/10/23 12/12/23 Venlafaxine HCl ER [Effexor Xr] 150 mg PO DAILY 12/10/23 12/12/23 cloNIDine HCL [Catapres] 0.2 mg PO BID 12/10/23 12/12/23 Previous Rx's Medication Instructions Recorded Lipase/Protease/Amylase [Jayme Dr 1 cap PO TID-W/MEALS #90 cap 02/15/23 36,000 Unit Capsule] Allergies Allergy/AdvReac Type Severity Reaction Status Date / Time No Known Allergies Allergy Verified 06/22/24 22:43 Review of Systems ROS Statement: Those systems with pertinent positive or pertinent negative responses have been documented in the HPI. ROS Other: All systems not noted in ROS Statement are negative. Past Medical History Past Medical History: Asthma, GERD/Reflux, Hypertension, Neurologic Disorder, Renal Disease Additional Past Medical History / Comment(s): ETOH with drawal with tremors/seizure, bronchitis, neuropathy R leg/R foot pain/limps, chronic low back pain/5 disc ruptured, 2017 pt had dialysis for 3 months but states kidneys are working fine now, insomnia. History of Any Multi-Drug Resistant Organisms: None Reported Past Surgical History: Orthopedic Surgery Additional Past Surgical History / Comment(s): Rhinoplasty, sinus scrapped, L lower eyelid laceration/repair, R 2nd toe metatarsopharangeal arthroplasty. PANCREATIC STENT INSERTION AND REMOVAL Past Anesthesia/Blood Transfusion Reactions: No Reported Reaction Past Psychological History: Anxiety, Depression Smoking Status: Current every day smoker, Vaper Past Alcohol Use History: Occasional Past Drug Use History: None Reported - Past Family History Mother Family Medical History: No Reported History Additional Family Medical History / Comment(s): Mother is healthy. Father Family Medical History: No Reported History Additional Family Medical History / Comment(s): Father is healthy General Exam - General Exam Comments Initial Comments: Visual Physical Exam Vital signs reviewed General: Well-appearing, nontoxic, no acute distress. Head: Normocephalic, atraumatic Eyes: PERRLA, EOMI ENT: Airway patent Chest: Nonlabored breathing Skin: No visual rash, normal skin tone Neuro: Alert and oriented 3 Musculoskeletal: No gross abnormalities Limitations: no limitations General appearance: alert, in no apparent distress Head exam: Present: atraumatic, normocephalic, normal inspection Eye exam: Present: normal appearance, EOMI Neck exam: Present: normal inspection. Absent: meningismus Respiratory exam: Present: normal lung sounds bilaterally. Absent: respiratory distress, wheezes, rales, rhonchi, stridor Cardiovascular Exam: Present: regular rate, normal rhythm, normal heart sounds. Absent: systolic murmur, diastolic murmur, rubs, gallop, clicks GI/Abdominal exam: Present: soft, tenderness. Absent: distended, guarding, rebound, rigid Neurological exam: Present: alert, oriented X3 Psychiatric exam: Present: normal affect, normal mood Skin exam: Present: warm, dry Course Vital Signs 06/22/24 06/23/24 06/23/24 22:40 00:00 01:40 Temperature 98.8 F Pulse Rate 100 92 87 Respiratory 18 16 16 Rate Blood Pressure 162/89 157/85 154/100 O2 Sat by Pulse 100 96 96 Oximetry 06/23/24 06/23/24 02:55 03:34 Temperature 97.9 F Pulse Rate 88 94 Respiratory 16 16 Rate Blood Pressure 157/92 152/96 O2 Sat by Pulse 96 100 Oximetry Medical Decision Making - Medical Decision Making I performed the quick note portion of this visit, electronically signed Yuri Wisdom PA-C Was pt. sent in by a medical professional or institution (, [facility], [employer], urgent care, hospital, or alf...) When possible be specific @ -No Did you speak to anyone other than the patient for history (EMS, parent, family, police, friend...)? What history was obtained from this source @ -No Did you review nursing and triage notes (agree or disagree)? Why? @ -I reviewed and agree with nursing and triage notes Were old charts reviewed (outside hosp., previous admission, EMS record, old EKG, old radiological studies, urgent care reports/EKG's, alf records)? Report findings @ -Reviewed previous visits Differential Diagnosis (chest pain, altered mental status, abdominal pain women, abdominal pain men, vaginal bleeding, weakness, fever, dyspnea, syncope, headache, dizziness, GI bleed, back pain, seizure, CVA, palpatations, mental health, musculoskeletal)? @ -MDM Differential Abdominal Pain Men: Appendicitis, cholecystitis, diverticulosis, ischemic bowel, pancreatitis, hepatitis, UTI, gastroenteritis, AAA, incarcerated hernia, bowel obstruction, constipation, inflammatory bowel, hepatitis, peptic ulcer disease, splenic infarction, perforated viscus, testicular torsion... This is not meant to be an all-inclusive list EKG interpreted by me (3pts min.). @ -As above X-rays interpreted by me (1pt min.). @ -None done CT interpreted by me (1pt min.). @ -None done U/S interpreted by me (1pt. min.). @ -None done What testing was considered but not performed or refused? (CT, X-rays, U/S, labs)? Why? @ -None What meds were considered but not given or refused? Why? @ -None Did you discuss the management of the patient with other professionals (professionals i.e. DrMarck, PA, [employer], lab, RT, psych nurse, case management social worker, quality control inspector heading, teacher, ict help desk officer, sample case porter)? Give summary @ -No Was smoking cessation discussed for >3mins.? @ -No Was critical care preformed (if so, how long)? @ -No Were there social determinants of health that impacted care today? How? (Homelessness, low income, unemployed, alcoholism, drug addiction, transportation, low edu. Level, literacy, decrease access to med. care, long term, rehab)? @ -No Was there de-escalation of care discussed even if they declined (Discuss DNR or withdrawal of care, Hospice)? DNR status @ -No What co-morbidities impacted this encounter? (DM, HTN, Smoking, COPD, CAD, Cancer, CVA, ARF, Chemo, Hep., AIDS, mental health diagnosis, sleep apnea, morbid obesity)? @ -None Was patient admitted / discharged? Hospital course, mention meds given and route, prescriptions, significant lab abnormalities, going to OR and other pertinent info. @ -48-year-old male presenting with chief complaint of epigastric pain. History of chronic pancreatitis. Workup is initiated by triage. Patient is later placed in a room and evaluated by myself. No leukocytosis. Hemoglobin 11.8 and consistent with baseline. Lactic acid 3, patient is receiving IV fluids. Lipase 634. Patient has had previous lipases of over 1000 that required admission. Considering his previous lipase results, this is not particularly high for this patient. On reassessment after pain meds he reports improvement. Educated on today's findings and treatment plan. Discharged. Follow-up with PCP. Report back to ER with any new or worsening symptoms. Discussed return parameters and answered all questions. Patient conveyed verbal understanding and agreed to the plan. I discussed this case in detail with my attending Dr. Acosta Undiagnosed new problem with uncertain prognosis? @ -No Drug Therapy requiring intensive monitoring for toxicity (Heparin, Nitro, Insulin, Cardizem)? @ -No Were any procedures done? @ -No Diagnosis/symptom? @ -Pancreatitis Acute, or Chronic, or Acute on Chronic? @ -Acute on chronic Uncomplicated (without systemic symptoms) or Complicated (systemic symptoms)? @ -uncomplicated Side effects of treatment? @ -No Exacerbation, Progression, or Severe Exacerbation? @ -No Poses a threat to life or bodily function? How? (Chest pain, [place], MT, pneumonia, PE, COPD, DKA, ARF, appy, cholecystitis, CVA, Diverticulitis, Homicidal, Suicidal, threat to staff... and all critical care pts) @ -Unlikely at this time - Lab Data Result diagrams: 06/22/24 22:44 06/23/24 01:55 Lab Results 06/22/24 06/22/24 06/23/24 Range/Units 22:44 22:44 01:55 WBC 5.7 (3.8-10.6) k/uL RBC 3.84 L (4.30-5.90) m/uL Hgb 11.8 L (13.0-17.5) gm/dL Hct 36.5 L (39.0-53.0) % MCV 95.2 (80.0-100.0) fL MCH 30.8 (25.0-35.0) pg MCHC 32.3 (31.0-37.0) g/dL RDW 15.6 H (11.5-15.5) % Plt Count 203 (150-450) k/uL MPV 8.5 Neutrophils % 75 % Lymphocytes % 16 % Monocytes % 5 % Eosinophils % 2 % Basophils % 0 % Neutrophils # 4.2 (1.3-7.7) k/uL Lymphocytes # 0.9 L (1.0-4.8) k/uL Monocytes # 0.3 (0-1.0) k/uL Eosinophils # 0.1 (0-0.7) k/uL Basophils # 0.0 (0-0.2) k/uL Hypochromasia Slight Sodium 140 (137-145) mmol/L Potassium 4.2 (3.5-5.1) mmol/L Chloride 113 H (98-107) mmol/L Carbon Dioxide 18 L (22-30) mmol/L Anion Gap 9 mmol/L BUN 14 (9-20) mg/dL Creatinine 0.68 (0.66-1.25) mg/dL Est GFR (CKD-EPI)AfAm >90 (>60 ml/min/1.73 sqM) Est GFR (CKD-EPI)NonAf >90 (>60 ml/min/1.73 sqM) Glucose 108 H (74-99) mg/dL Lactic Ac Sepsis Rflx Plasma Lactic Acid Valentino 3.0 H* (0.7-2.0) mmol/L Calcium 8.2 L (8.4-10.2) mg/dL Total Bilirubin 0.5 (0.2-1.3) mg/dL AST 30 (17-59) U/L ALT 17 (4-49) U/L Alkaline Phosphatase 99 (38-126) U/L Total Protein 6.9 (6.3-8.2) g/dL Albumin 4.1 (3.5-5.0) g/dL Amylase 132 H (30-110) U/L Lipase 634 H (23-300) U/L 06/23/24 06/23/24 Range/Units 01:55 02:35 WBC (3.8-10.6) k/uL RBC (4.30-5.90) m/uL Hgb (13.0-17.5) gm/dL Hct (39.0-53.0) % MCV (80.0-100.0) fL MCH (25.0-35.0) pg MCHC (31.0-37.0) g/dL RDW (11.5-15.5) % Plt Count (150-450) k/uL MPV Neutrophils % % Lymphocytes % % Monocytes % % Eosinophils % % Basophils % % Neutrophils # (1.3-7.7) k/uL Lymphocytes # (1.0-4.8) k/uL Monocytes # (0-1.0) k/uL Eosinophils # (0-0.7) k/uL Basophils # (0-0.2) k/uL Hypochromasia Sodium (137-145) mmol/L Potassium (3.5-5.1) mmol/L Chloride (98-107) mmol/L Carbon Dioxide (22-30) mmol/L Anion Gap mmol/L BUN (9-20) mg/dL Creatinine (0.66-1.25) mg/dL Est GFR (CKD-EPI)AfAm (>60 ml/min/1.73 sqM) Est GFR (CKD-EPI)NonAf (>60 ml/min/1.73 sqM) Glucose (74-99) mg/dL Lactic Ac Sepsis Rflx Y Plasma Lactic Acid Valentino 2.4 H* (0.7-2.0) mmol/L Calcium (8.4-10.2) mg/dL Total Bilirubin (0.2-1.3) mg/dL AST (17-59) U/L ALT (4-49) U/L Alkaline Phosphatase (38-126) U/L Total Protein (6.3-8.2) g/dL Albumin (3.5-5.0) g/dL Amylase (30-110) U/L Lipase (23-300) U/L Disposition Clinical Impression: Chronic pancreatitis Disposition: HOME SELF-CARE Condition: Fair Instructions (If sedation given, give patient instructions): Pancreatitis (ED) Additional Instructions: Follow-up with PCP. Report back to ER with any new or worsening symptoms. Is patient prescribed a controlled substance at d/c from ED?: No Referrals: Radha Nichole DO [Primary Care Provider] - 1-2 days Time of Disposition: 03:19
[2024-06-23] MEDS: KETOROLAC 15 MG/ML 1 ML VIAL IVP STA (00:13)
[2024-06-23] MEDS: SODIUM CHLORIDE 0.9% 2,000 ML IV ONE (00:15)
[2024-06-23] MEDS: HYDROmorphone 1 MG/ML 1 ML SYRINGE IVP STA (01:28)
[2024-06-23 02:36] LABS: ALT 17 U/L (4-49); AST 30 U/L (17-59); African American GFR (CKD) >90 (>60 ml/min/1.73 sqM); Albumin 4.1 g/dL (3.5-5.0); Alkaline Phosphatase 99 U/L (38-126); Amylase 132 U/L (30-110); Anion Gap 9 mmol/L; Blood Urea Nitrogen 14 mg/dL (9-20); Calcium 8.2 mg/dL (8.4-10.2); Carbon Dioxide 18 mmol/L (22-30); Chloride 113 mmol/L (98-107); Glucose 108 mg/dL (74-99); Lipase 634 U/L (23-300); Non-African American GFR(CKD) >90 (>60 ml/min/1.73 sqM); Potassium 4.2 mmol/L (3.5-5.1); Sodium 140 mmol/L (137-145); Total Bilirubin 0.5 mg/dL (0.2-1.3); Total Protein 6.9 g/dL (6.3-8.2)
[2024-06-23 02:56] VITALS: RESP 16
[2024-06-23] MEDS: HYDROmorphone 0.5 MG/0.5 ML SYRINGE IVP STA (03:28)
[2024-06-23 03:35] VITALS: BP 152/96; PULSE 94; TEMP 97.9
== END 2024-06-23 03:35 | disposition home or self-care (01) ==
LOC: EC 22:38
CPT/HCPCS: 36415; 80053; 82150; 83605; 83690; 85025; 96361; 96374; 96375; 96376; 99284